=== PATIENT | female | born 2000 | race Caucasian/White ===

== ENCOUNTER 2023-08-24 20:28 | Outpatient (REF) | payer OTHER, SELFPAY ==
[2023-08-30 11:20] LABS: Age Gdln ACOG Testing Note (.); IGP, rfx Aptima HPV ASCU Note (.)
== END 2023-08-24 20:29 | disposition home or self-care (01) ==
LOC: LAB 20:28
PROVIDERS: Visit Provider Physician Assistant
DX: Z01.419 Encounter for gynecological examination (general) (routine) without abnormal findings (principal)
CPT/HCPCS: G0145

== ENCOUNTER 2024-08-28 11:13 | Outpatient (RCR) | payer OTHER, SELFPAY ==
[2024-08-28 12:29] LABS: HCG Quantitative 495 mIU/mL
== END 2024-09-10 10:56 | disposition home or self-care (01) ==
LOC: LAB 11:13
PROVIDERS: PCP Family Medicine; Visit Provider Physician Assistant
DX: N92.6 Irregular menstruation, unspecified (principal)
CPT/HCPCS: 84702

== ENCOUNTER 2024-08-28 19:19 | Outpatient (REF) | payer OTHER, SELFPAY ==
--- OUTSIDE RECORDS SUMMARY | 2024-08-28 19:24 | XMS_ITS | CCD ---
Author Organization [facility] Care Team Providers Care Rheumatology Nurse Name Role Phone Community, Outreach Attending Provider NO FAMILY, PHYSICIAN Primary Care Provider Unava ilable Community, Outreach Attending Unavailable Community, Outreach Admitting Unavailable NO FAMILY, PHYSICIAN Primary Care Unavailable PEDRO ., DR BALL Consulting Unavailable PEDRO ., DR BALL Admitting Unavailable REQUEST, DR NONE LISTED Primary Care Unavaila ble PEDRO ., DR BALL Attending Unavailable PEDRO ., DR BALL Admitting Unavailable REQUEST, DR NONE LISTED Primary Care Unavaila ble PEDRO ., DR BALL Attending Unavailable PEDRO ., DR BALL Consulting Unavailable ZIEBER, DR ANTHONY Royal Consulting Unavailable SUNSHINE DING Attending Unavailable DO Tuan Lovell Attending Unavailable Moses Smith Attending Unavailable MD Kai Mcrae Admitting Unavaila ble [place] tristan Consulting Unavailable [place] Consulting Unavailable [place] Consulting Unavailable Anthony Flood Consulting Unavailable Anthony Flood Consulting Unavailable Anthony Flood Consulting Unavailable Anthony Flood Consulting Unavailable [place] Consulting Unavailable [place] Consulting Unavailable [facility] Cardio, XXXX Consulting Unavailable Jenna BA Primary Care Physician Irasema Franco Unavailable Unavailable Kai Mcrae Admitting Unavailable BetaarielleorBenjamin Consulting Unavailable Moses Smith Attending Unavailable SuzanorBenjamin Consulting Unavailable Benjamin Flores Consulting Unavailable Anthony Flood Consulting Unavailable MD Anthony Flood Consulting Unavailable Anthony Flood Consulting Unavailable [place] Consulting Unavailable [place] Consulting Unavailable [place] Consulting Unavailable [place] Consulting Unavailable Anthony Flood Consulting Unavailable Anthony Flood Consulting Unavailable [facility] Cardio, XXXX Consulting Unavailable MD Kai Mcrae Admitting Unavaila ble Jenna Ba DO Primary Care Provider JENNA BA Attending Unavailable JENNA BA Referring Unavailable JENNA BA Primary Care Unavailable Jenna Ba MD Primary Care Provider Problems Active Problems Problem Classification Problem Date Documented Date Episodic/Chronic Cardiac dysrhythmias (2 sources) Palpitations; Translations: [Palpitations] Onset: 06-04-2024 06-04-2024 Episodic Diseases of white blood cells (1 source) Leukocytosis; Translations: [Elevated white blood cell count, unspecified] Onset: 03-12-2024 Chronic Immunizations and screening for infectious disease (1 source) Encounter for screening for human papillomavirus (HPV); Translations: [ENC SCREENING HUMAN PAPILLOMAVIRUS] Onset: 05-30-2022 Episodic Menstrual disorders (3 sources) Irregular menstruation, unspecified; Translations: [Missed period] Onset: 05-13-2022 08-28-2024 Chronic Nonspecific chest pain (1 source) Chest wall pain; Translations: [Other chest pain] 01-01-2017 Episodic Other circulatory disease (1 source) Low blood pressure; Translations: [Hypotension, unspecified] Onset: 03-12-2024 Episodic Other circulatory disease (1 source) Postural orthostatic tachycardia syndrome ; Translations: [Postural orthostatic tachycardia syndrome [POTS]] Onset: 03-12-2024 Episodic Other circulatory disease (1 source) Orthostatic hypotension; Translations: [Orthostatic hypotension] Onset: 03-12-2024 Episodic Other endocrine disorders (4 sources) Polycystic ovarian syndrome; Translations: [POLYCYSTIC OVARIAN SYNDROME] Onset: 05-12-2022 Chronic Other nutritional; endocrine; and metabolic disorders (1 source) Body mass index 30+ - obesity 08-12-2020 Chronic Other nutritional; endocrine; and metabolic disorders (1 source) Simple obesity 08-12-2020 Chronic Other nutritional; endocrine; and metabolic disorders (1 source) Obesity; Translations: [Obesity, unspecified] Onset: 08-18-2020 08-18-2020 Chronic Other screening for suspected conditions (not mental disorders or infectious disease) (4 sources) Encounter for screening for malignant neoplasm of cervix; Translations: [ENC SCREENING MALIG NEOPLASM CERV] Onset: 05-26-2022 Episodic Syncope (3 sources) Syncope and collapse; Translations: [Syncope and collapse] Onset: 03-12-2024 Episodic Unclassified (1 source) Patient encounter status 08-12-2020 Past or Other Problems Problem Classification Problem Date Documented Da te Episodic/Chronic Abdominal pain (3 sources) Abdominal pain; Translations: [Unspecified abdominal pain] Onset: 08-18-2020 Resolved: 03-15-2024 Episodic Heart valve disorders (2 sources) Systolic murmur; Translations: [Cardiac murmur, unspecified] Onset: 08-18-2020 04-19-2019 Episodic Other gastrointestinal disorders (2 sources) Burping; Translations: [Eructation] Onset: 08-18-2020 Resolved: 03-15-2024 03-10-2020 Episodic Results Test Name Value Interpretation Reference Range Facility HCG ( test) Ql (U)o n 08-28-2024 Interpretation and review of laboratory results Abnormal [facility] Preg Test, Ur Positive Negative [facility] PREG QUANT HCGon 025 HCG QUANTITATIVE 495 mIU/mL [facility] Comment on above: 5-50 0.2-1 WEEK 50-500 1-2 WEEKS 100-5,000 2-3 WEEKS 500-10,000 3-4 WEEKS 1,000-50,000 4-5 WEEKS 10,000-100,000 5-6 WEEKS 15,000-200,000 6-8 WEEKS 10,000-100,000 2-3 MONTHS [facility] Cortisolon 03-14-2024 Cortisol [Mass/Vol] 11.0 microgram/dL Invalid Interpretation Code 6.2-19.4 [facility] Comment on above: Result Comment: Beny escalona Note: The reference interval and flagging for this test is for an AM collection. If this is a PM collection please use: Cortisol PM: 2.3-11.9 Performed at: [facility] [address] [place], [place] [id number] PhD Gilles López Performed By: #### 2 [id number] #### [facility] [address] [place] [address] BMPon 03-13-2024 Anion gap [Moles/Vol] 8 mmol/L Normal 6-16 [facility] Comment on above: Performed By: #### 2 [id number] #### [facility] [address] [place] [address] Calcium [Mass/Vol] 8.3 mg/dL Low 8.9-11.1 [facility] Comment on above: Performed By: #### 2 [id number] #### [facility] [address] [place] [address] Chloride [Moles/Vol] 109 mmol/L Normal 101-111 [facility] Comment on above: Performed By: #### 2 [id number] #### [facility] [address] [place] [address] CO2 [Moles/Vol] 27 mmol/L Normal 21-31 [facility] Comment on above: Performed By: #### 2 [id number] #### [facility] [address] [place] [address] Creatinine [Mass/Vol] 0.5 mg/dL Normal 0.5-1.3 [facility] Comment on above: Performed By: #### 2 [id number] #### [facility] [address] [place] [address] Glucose [Mass/Vol] 104 mg/dL Normal 55-199 [facility] Comment on above: Performed By: #### 2 [id number] #### [facility] [address] [place] [address] Potassium [Moles/Vol] 4.0 mmol/L Normal 3.5-5.3 [facility] Comment on above: Performed By: #### 2 [id number] #### [facility] [address] [place] [address] Sodium [Moles/Vol] 140 mmol/L Normal 135-145 [facility] Comment on above: Performed By: #### 2 [id number] #### [facility] [address] [place] [address] Urea nitrogen [Mass/Vol] 10 mg/dL Normal 5-21 [facility] Comment on above: Performed By: #### 2 [id number] #### [facility] [address] [place] [address] Urea nitrogen/Creatinine [Mass ratio] 20 No Units Normal 10-20 [facility] Comment on above: Performed By: #### 2 [id number] #### [facility] [address] [place] [address] CBC w/ Auto Diffon 4 Basophils/100 WBC (Bld) 0.8 % Normal 0.0-2.0 [facility] Comment on above: Performed By: #### 2 [id number] #### [facility] [address] [place] [address] Basophils/Leukocytes Auto (Bld) [Pure # fraction] 0.1 E9/L Normal 0.0-0.2 [facility] Comment on above: Performed By: #### 2 [id number] #### [facility] [address] [place] [address] Eosinophils (Bld) [#/Vol] 0.2 E9/L Normal 0.0-0.5 [facility] Comment on above: Performed By: #### 2 [id number] #### [facility] [address] [place] [address] Eosinophils/100 WBC (Bld) 3.6 % Normal 0.0-8.0 [facility] Comment on above: Performed By: #### 2 770723 #### [facility] [address] [place] [address] Erythrocyte distribution width (RBC) [Ratio] 12.6 % Normal 10.9-14.2 [facility] Comment on above: Performed By: #### 2 253882 #### [facility] [address] [place] [address] Hematocrit (Bld) [Volume fraction] 35.7 % Normal 34.0-46.0 [facility] Comment on above: Performed By: #### 2 304271 #### [facility] [address] [place] [address] Hemoglobin (Bld) [Mass/Vol] 12.6 g/dL Normal 12.0-16.0 [facility] Comment on above: Performed By: #### 2 [id number] #### [facility] [address] [place] [address] Lymphocytes (Bld) [#/Vol] 2.1 E9/L Normal 1.0-4.0 [facility] Comment on above: Performed By: #### 2 770334 #### [facility] [address] [place] [address] Lymphocytes/100 WBC (Bld) 30.7 % Normal 14.0-50.0 [facility] Comment on above: Performed By: #### 2 306465 #### [facility] [address] [place] [address] MCH (RBC) [Entitic mass] 32.9 pg Normal 27.0-34.0 [facility] Comment on above: Performed By: #### 2 423876 #### [facility] [address] [place] [address] MCHC (RBC) [Mass/Vol] 35.3 g/dL Normal 31.4-36.0 [facility] Comment on above: Performed By: #### 2 560219 #### [facility] [address] [place] [address] MCV (RBC) [Entitic vol] 93.4 fL Normal 80.0-100.0 [facility] Comment on above: Performed By: #### 2 061696 #### [facility] [address] [place] [address] Monocytes (Bld) [#/Vol] 0.6 E9/L Normal 0.2-1.0 [facility] Comment on above: Performed By: #### 2 923205 #### [facility] [address] [place] [address] Neutrophils (Bld) [#/Vol] 3.9 E9/L Normal 2.0-7.5 [facility] Comment on above: Performed By: #### 2 926109 #### [facility] [address] [place] [address] Neutrophils/100 WBC (Bld) 55.7 % Normal 36.0-75.0 [facility] Comment on above: Performed By: #### 2 132459 #### [facility] [address] [place] [address] Platelet 225.0 E9/L Normal 150.0-500.0 [facility] Comment on above: Performed By: #### 2 481906 #### [facility] [address] [place] [address] Platelet mean volume (Bld) [Entitic vol] 7.8 fL Normal 6.4-10.8 [facility] Comment on above: Performed By: #### 2 377305 #### [facility] [address] [place] [address] RBC (Bld) [#/Vol] 3.8 E12/L Low 4.3-5.9 [facility] Comment on above: Performed By: #### 2 273116 #### [facility] [address] [place] [address] WBC corrected for nucl RBC Auto (Bld) [#/Vol] 7.0 E9/L Normal 4.0-11.0 [facility] Comment on above: Performed By: #### 2 618466 #### [facility] [address] [place] [address] CHEMISTRYOrdered By: SYSTEM SYSTEM on 03-13-2024 Anion gap [Moles/Vol] 8 mmol/L Normal 6 - 16 mEq/L [facility] Calcium [Mass/Vol] 8.3 mg/dL Low 8.9 - 11. 1 mg/dL [facility] Chloride [Moles/Vol] 109 mmol/L Normal 101 - 1 11 mmol/L [facility] CO2 [Moles/Vol] 27 mmol/L Normal 21 - 31 mmol/L [facility] Creatinine [Mass/Vol] 0.5 mg/dL Normal 0.5 - 1.3 mg/dL [facility] eGFR 133 mL/min/1.73 m2 Normal >=59mL/mi n/ 1.73 m2 [facility] Glucose [Mass/Vol] 104 mg/dL Normal 55 - 199 mg/dL [facility] Potassium [Moles/Vol] 4.0 mmol/L Normal 3.5 - 5.3 mmol/L [facility] Sodium [Moles/Vol] 140 mmol/L Normal 135 - 145 mmol/L [facility] TSH Qn 5.22 m[IU]/L Normal 0.34 - 5.60 mcIU/mL [facility] Urea nitrogen [Mass/Vol] 10 mg/dL Normal 5 - 21 mg/dL [facility] Urea nitrogen/Creatinine [Mass ratio] 20 mg/mg Normal 10 - 20 [facility] Discharge Note-Nursingon Discharge Note-Nursing Discharge Note-Nursing JYOTI TORRES :2000 Visit Date:03/12/2024 Inpatient Discharge Instructions Your Care Team Admitting Physician - Thor RIZVI, Kai Lagos Consulting Physician - Remigio RIZVI, Anthony Flores MD, Benjamin [facility] Cardio, XXXX Reason for Your Visit abdomenal pain Your Diagnosis Syncope Postural orthostatic tachycardia syndrome [POTS] Orthostatic syncope Abdominal pain, acute Hypotension Leukocytosis Abdominal pain Tests Performed Cortisol -- Results Pending -- CT Abdomen/Pelvis w/ Contrast Echo Transthoracic Complete -- Results Pending -- US Pelvis Non-OB Complete Please visit your patient portal for your results or contact your primary care physician. Procedure History None. Discharge Vitals Temperature (Oral) 36.6 ???C Heart Rate (Monitored) 61 Blood Pressure 96/61 Height 162.56 cm Weight 79.4 kg BMI 30.05 What to do next Instructions From Your Doctor Event Name Event Result Pending Diagnostic Test Results None Discharge Instructions Please return to ER if symptoms change or worsen. Please follow-up with your PCP as instructed. Please make sure you follow-up with a neurologist as well as a foreign exchange student coordinator. New Follow Up Appointments after Discharge Follow Up with Remigio RIZVI, KYLAH Esteves When: 03/28/2024 01:40 PM EST Comments: Will being Hue Bentley PLUNKET NURSE at this appointment. Where: [facility] [address] [place] [address]- Follow Up with Jenna BA When: 03/15/2024 09:45 AM EST Where: [address] [place] [address] [phone] Business (1) Follow Up with Mark RIZVI, IRIS Alexander When: Within 2 to 4 weeks Comments: Call for followup appointment Where: Test Results CBC BMP WBC: 7 E9/L (03/13/24 06:16:00) Glucose Lvl: 104 mg/dL (03/13/24 06:16:00) RBC: 3.8 E12/L Low (03/13/24 06:16:00) BUN: 10 mg/dL (03/13/24 06:16:00) HGB: 12.6 gm/dL (03/13/24 06:16:00) Creatinine: 0.5 mg/dL (03/13/24 06:16:00) Hct: 35.7 % (03/13/24 06:16:00) BUN/Creat Ratio: 20 (03/13/24 06:16:00) MCV: 93.4 fL (03/13/24 06:16:00) Sodium Lvl: 140 mmol/L (03/13/24 06:16:00) MCH: 32.9 pg (03/13/24 06:16:00) Potassium Lvl: 4 mmol/L (03/13/24 06:16:00) MCHC: 35.3 gm/dL (03/13/24 06:16:00) Chloride: 109 mmol/L (03/13/24 06:16:00) RDW: 12.6 % (03/13/24 06:16:00) CO2: 27 mmol/L (03/13/24 06:16:00) Platelet: 225 E9/L (03/13/24 06:16:00) AGAP: 8 mEq/L (03/13/24 06:16:00) MPV: 7.8 fL (03/13/24 06:16:00) Calcium Lvl: 8.3 mg/dL Low (12/03/24 06:16:00) Allergies No Known Allergies Problems Ongoing - Any problem that you are currently receiving treatment for. Abdominal discomfort, epigastric Belching BMI 34.0-34.9,adult Encounter for herb and vitamin supplement management Obesity due to excess calories Systolic murmur Education Materials Postural Orthostatic Tachycardia Syndrome Postural orthostatic tachycardia syndrome (POTS) is a group of symptoms that occur along with an increase in heart rate when a person stands up after lying down. The symptoms include light-headedness or fainting, and they improve when the person lies back down. POTS may be associated with another medical condition, or it may occur on its own. What are the causes? The cause of this condition is not known, but many conditions and diseases are associated with it. What increases the risk? This condition is more likely to develop in: ??? Women 15???50 years old. ??? Women who are . ??? Women who are in their period (menstruating). ??? People who have certain conditions, such as: ? Infection from a virus. ? Diseases that cause the body's defense system (immune system) to attack healthy organs. These are called autoimmune diseases. ? Losing a lot of red blood cells (anemia). ? Losing too much water in the body (dehydration). ? An overactive thyroid (hyperthyroidism). ??? People who take certain medicines. ??? People who have had a major injury. ??? People who have had surgery. What are the signs or symptoms? The most common symptom of this condition is light-headedness when you stand up from a lying or sitting position. Other symptoms may include: ??? Feeling a rapid increase in the heartbeat (tachycardia) within 10 minutes of standing up. ??? Chest pain. ??? Shortness of breath. ??? Breathing that is deeper and faster than normal (hyperventilation). ??? Fainting. ??? Confusion. ??? Trembling. ??? Weakness. ??? Headache. ??? Anxiety. ??? Nausea. ??? Sweating or flushing. Symptoms may be worse in the morning, and they may be relieved by lying down. How is this diagnosed? This condition is diagnosed based on: ??? Your symptoms. ??? Your medical history. ??? A physical exam. ??? Checking your heart rate when you are lying down and after you (more content not included)... Normal [facility] HEMATOLOGYOrdered By: SYSTEM SYSTEM on 03-13-2024 Basophils/100 WBC (Bld) 0.8 % Normal 0.0 - 2.0 % [facility]e Basophils/Leukocytes Auto (Bld) [Pure # fraction] 0.1 E9/L Normal 0.0 - 0.2 E9/L [facility] Eosinophils (Bld) [#/Vol] 0.2 E9/L Normal 0. 0 - 0.5 E9/L [facility] Eosinophils/100 WBC (Bld) 3.6 % Normal 0.0 - 8.0 % [facility] Erythrocyte distribution width (RBC) [Ratio] 12.6 % Normal 10.9 - 14.2 % [facility] Hematocrit (Bld) [Volume fraction] 35.7 % Normal 34.0 - 46.0 % [facility] Hemoglobin (Bld) [Mass/Vol] 12.6 g/dL Normal 12.0 - 16.0 gm/dL [facility] Lymphocytes (Bld) [#/Vol] 2.1 E9/L Normal 1. 0 - 4.0 E9/L [facility] Lymphocytes/100 WBC (Bld) 30.7 % Normal 14 .0 - 50.0 % [facility] MCH (RBC) [Entitic mass] 32.9 pg Normal 27. 0 - 34.0 pg [facility] MCHC (RBC) [Mass/Vol] 35.3 g/dL Normal 31.4 - 36.0 gm/dL [facility] MCV (RBC) [Entitic vol] 93.4 fL Normal 80.0 - 100.0 fL [facility] Monocytes (Bld) [#/Vol] 0.6 E9/L Normal 0.2 - 1.0 E9/L [facility] Monocytes/100 WBC (Bld) 9.2 % Normal 4.0 - 14.0 % [facility] Neutrophils (Bld) [#/Vol] 3.9 E9/L Normal 2. 0 - 7.5 E9/L [facility] Neutrophils/100 WBC (Bld) 55.7 % Normal 36 .0 - 75.0 % [facility] Platelet 225.0 E9/L Normal 150.0 - 500.0 E9/L [facility] Platelet mean volume (Bld) [Entitic vol] 7.8 fL Normal 6.4 - 10.8 fL [facility] RBC (Bld) [#/Vol] 3.8 E12/L Low 4.3 - 5.9 E12/L [facility] WBC corrected for nucl RBC Auto (Bld) [#/Vol] 7.0 E9/L Normal 4.0 - 11.0 E9/L [facility] Inpatient Clinical Summaryon 03-13-2024 Inpatient Clinical Summary Inpatient Clinical Summary [place] [address] Clinical Summary Person Information: Name: JYOTI TORRES Age: 23 Years : 2000 Sex: Female PCP: Jenna BA DO Marital Status: Race: White Ethnicity: Non- or Language: Hong Konger Visit Id: Visit Reason: Abdominal pain; ABD PAIN /PASSED OUT Speciality: Acuity: Enc Type: Observation Med Service: Medical Arrival: 03/12/2024 05:43:15 Discharge: Dispo Type: Admitted as IP to this Hosp Address: [address] [place] [address] Provider Notes: Diagnosis: 1:Syncope; 2:Postural orthostatic tachycardia syndrome [POTS]; 3:Orthostatic syncope; 4:Abdominal pain, acute; 5:Hypotension; 6:Leukocytosis Problems Active Encounter for herb and vitamin supplement management Obesity due to excess calories BMI 34.0-34.9,adult Belching Abdominal discomfort, epigastric Systolic murmur Smoking Status: Never Smoker Functional Status: Sensory Deficits: History of Falls: Mobility Assistance Prior to Admission: ADLs: Independent Current Level of Assistance for Self-Care/Mobility: Cognitive Status: Oriented x 3 Allergies No Known Allergies Measurements: Height: 162.56 cm Weight: 79.4 kg Blood Pressure: 96 mmHg / 61 mmHg BMI: 30.05 kg/m2 Procedures No Procedures Documented Immunizations No Immunizations Documented This Visit Final Med List: No Known Home Medications Care Team Members: Attending Physician: Moses Smith DO Consulting Physician: Theresa Flores MD, MD, Steven; [facility] Cardio, XXXX Referring Physician: Follow up: With: Address: When: Jenna BA [address] [facility] [place] [address] [phone] [facility] (1) 03/15/2024 9:45 AM With: Address: When: Anthony Flood MD, [facility] [address] [place] [id number] 03/28/2024 1:40 PM Comments: Will being Hue Bentley NP at this appointment. With: Address: When: Mark RIZVI, Benjamin, IRIS Within 2 to 4 weeks Comments: Call for followup appointment Patient Education Information: Postural Orthostatic Tachycardia Syndrome; Orthostatic Hypotension; Near-Syncope, [id number]-ad-Ygtm Normal [facility] Inpatient Patient Summaryon 03-13-2024 Inpatient Patient Summary Inpatient Mikaela ent Summary [address] [address] Patient Discharge Instructions PERSON INFORMATION Name: JYOTI TORRES Date of : 2000 Current Date: 03/13/2024 12:34:22 PHYSICIANS Admitting Physician: Thor RIZVI, Kai Lagos Primary Care Physician: Jenna BA DO PCP Phone Number: [phone] Comment: Discharge Diagnosis: 1:Syncope; 2:Postural orthostatic tachycardia syndrome [POTS]; 3:Orthostatic syncope; 4:Abdominal pain, acute; 5:Hypotension; 6:Leukocytosis Condition at Discharge: Improved JYOTI TORRES has been given the following list of follow-up instructions, prescriptions, and patient education materials: PATIENT FOLLOW-UP INFORMATION Diet: Discharge Activity: Discharge Restrictions: Wound Care Instructions: Remove Your Dressing In Days Call Your Doctor For: IF UNABLE TO CONTACT YOUR PHYSICIAN AND YOU FEEL IT IS AN EMERGENCY, GO TO THE NEAREST EMERGENCY ROOM OR CALL 911 Home Treatment: Devices/Equipment: None Special Services: Additional Instructions: Please return to ER if symptoms change or worsen. Please follow-up with your PCP as instructed. Please make sure you follow-up with a neurologist as well as a foreign exchange student coordinator. Primary Care Physician to provide the following pending test results: None Follow up: With: Address: When: Jenna BA [address] [facility] [place] [address] [phone] Business (1) 03/15/2024 9:45 AM With: Address: When: [facility]VI[facility] [address] [place] [address] 03/28/2024 1:40 PM Comments: Will being Hue Bentley NP at this appointment. With: Address: When: Mark RIZVI, IRIS Alexander Within 2 to 4 weeks Comments: Call for followup appointment In the event that this physician does not participate in your insurance network, please consult with your insurance company to find a nearby participating provider. Comment: BRYCE Baez KAYLA M, have received the attached patient education materials/instruction s and have verbalized understanding: Patient Signature Date Clinican/Nurse Signature Date HERE ARE THE MEDICATION CHANGES THAT OCCURRED DURING YOUR HOSPITAL STAY Comment: MEDICATION LIST PROVIDED FOR YOU IS A LIST OF YOUR CURRENT MEDICATIONS. PLEASE CARRY THIS WITH YOU AT ALL TIMES. No Known Home Medications Pharmacy Information: Comment: PATIENT EDUCATION INFORMATION Instructions: Postural Orthostatic Tachycardia Syndrome Postural orthostatic tachycardia syndrome (POTS) is a group of symptoms that occur along with an increase in heart rate when a person stands up after lying down. The symptoms include light-headedness or fainting, and they improve when the person lies back down. POTS may be associated with another medical condition, or it may occur on its own. What are the causes? The cause of this condition is not known, but many conditions and diseases are associated with it. What increases the risk? This condition is more likely to develop in: ??? Women 15?50 years old. ??? Women who are . ??? Women who are in their period (menstruating). ??? People who have certain conditions, such as: ? Infection from a virus. ? Diseases that cause the body's defense system (immune system) to attack healthy organs. These are called autoimmune diseases. ? Losing a lot of red blood cells (anemia). ? Losing too much water in the body (dehydration). ? An overactive thyroid (hyperthyroidism). ??? People who take certain medicines. ??? People who have had a major injury. ??? People who have had surgery. What are the signs or symptoms? The most common symptom of this condition is light-headedness when you stand up from a lying or sitting position. Other symptoms may include: ??? Feeling a rapid increase in the heartbeat (tachycardia) within 10 minutes of standing up. ??? Chest pain. ??? Shortness of breath. ??? Breathing that is deeper and faster than normal (hyperventilation). ??? Fainting. ??? Confusion. ??? Trembling. ??? Weakness. ??? Headache. ??? Anxiety. ??? Nausea. ??? Sweating or flushing. Symptoms may be worse in the morning, and they may be relieved by lying down. How is this diagnosed? This condition is diagnosed based on: ??? Your symptoms. ??? Your medical history. ??? A physical exam. ??? Checking your heart rate when you are lying down and after you stand up. ??? Checking your blood pressure when you go from lying down to standing up. ??? Blood and urine tests to measure hormones that change with blood pressure. The blood tests will be done when you are lying down and when you are standing up. You may have other tests to check for conditions or diseases that are associated with POTS. (more content not included)... Normal [facility] Interdisciplinary Note - Zenon e Manageron 03-13-2024 Interdisciplinary Note - Studio Operation Engineer Interdisciplinary Note - Studio Operation Engineer CRM to room 327 Patient is awake, alert and oriented. Patient is from home with her spouse. He is her ride at [place]. He is present in room. Patient verified PCP, DME and insurance. Patient came in as observation. Patient had abdomen pain with syncopal episode. Patient is assigned to Dr Smith, see notes. Patient has neurology and cardiology on case. Patient has consutl for advance directives. Patient is not interested at this time. Patient had CT showed inflammation around ovary. It was f/u with US of pelvis and this was negative. Patient declined any DC needs for DME, Paramed and HH care. Patient was provided CRM contact, white board updated. CRM following Dc date TBD Normal [facility] Comment on above: Result Comment: Elec tronically Signed By: Radha Trevino\.br\Date and Time Signed: 03/13/24 09:28 EST TSH With T4fr Reflexon 03-13 TSH Qn 5.22 m[IU]/L Normal 0.34-5.60 [facility] Comment on above: Performed By: #### 1 [id number] #### [facility] [address] [place] [address] eGFRon 03-13-2024 eGFR 133 mL/min/1.73 m2 Normal >=59 [facility] Comment on above: Performed By: #### 1 [id number] #### [facility] [address] [place] [address] BMPon 03-12-2024 Anion gap [Moles/Vol] 9 mmol/L Normal 6-16 [facility] Comment on above: Performed By: #### 2 [id number] #### [facility] [address] [place] [address] Calcium [Mass/Vol] 9.0 mg/dL Normal 8.9-11.1 [facility] Comment on above: Performed By: #### 2 [id number] #### [facility] [address] [place] [address] Chloride [Moles/Vol] 106 mmol/L Normal 101-111 [facility] Comment on above: Performed By: #### 2 [id number] #### [facility] [address] [place] [address] CO2 [Moles/Vol] 27 mmol/L Normal 21-31 [facility] Comment on above: Performed By: #### 2 [id number] #### [facility] [address] [place] [address] Creatinine [Mass/Vol] 0.6 mg/dL Normal 0.5-1.3 [facility] Comment on above: Performed By: #### 2 [id number] #### [facility] [address] [place] [address] Glucose [Mass/Vol] 108 mg/dL Normal 55-199 [facility] Comment on above: Performed By: #### 2 [id number] #### [facility] [address] [place] [address] Potassium [Moles/Vol] 3.9 mmol/L Normal 3.5-5.3 [facility] Comment on above: Performed By: #### 2 [id number] #### [facility] [address] [place] [address] Sodium [Moles/Vol] 138 mmol/L Normal 135-145 [facility] Comment on above: Performed By: #### 2 [id number] #### [facility] [address] [place] [address] Urea nitrogen [Mass/Vol] 11 mg/dL Normal 5-21 [facility] Comment on above: Performed By: #### 2 [id number] #### [facility] [address] [place] [address] Urea nitrogen/Creatinine [Mass ratio] 18 No Units Normal 10-20 [facility] Comment on above: Performed By: #### 2 [id number] #### [facility] [address] [place] [address] CBC w/ Auto Diffon 4 Basophils/100 WBC (Bld) 0.2 % Normal 0.0-2.0 [facility] Comment on above: Performed By: #### 2 [id number] #### [facility] [address] [place] [address] Basophils/Leukocytes Auto (Bld) [Pure # fraction] 0.0 E9/L Normal 0.0-0.2 [facility] Comment on above: Performed By: #### 2 [id number] #### [facility] [address] [place] [address] Eosinophils (Bld) [#/Vol] 0.1 E9/L Normal 0.0-0.5 [facility] Comment on above: Performed By: #### 2 [id number] #### [facility] [address] [place] [address] Eosinophils/100 WBC (Bld) 0.6 % Normal 0.0-8.0 [facility] Comment on above: Performed By: #### 2 [id number] #### [facility] [address] [place] [address] Erythrocyte distribution width (RBC) [Ratio] 12.5 % Normal 10.9-14.2 [facility] Comment on above: Performed By: #### 2 [id number] #### [facility] [address] [place] [address] Hematocrit (Bld) [Volume fraction] 40.5 % Normal 34.0-46.0 [facility] Comment on above: Performed By: #### 2 [id number] #### [facility] [address] [place] [address] Hemoglobin (Bld) [Mass/Vol] 13.7 g/dL Normal 12.0-16.0 [facility] Comment on above: Performed By: #### 2 [id number] #### [facility] [address] [place] [address] Lymphocytes (Bld) [#/Vol] 1.7 E9/L Normal 1.0-4.0 [facility] Comment on above: Performed By: #### 2 [id number] #### [facility] [address] [place] [address] Lymphocytes/100 WBC (Bld) 10.6 % Low 14.0-50.0 [facility] Comment on above: Performed By: #### 2 [id number] #### [facility] [address] [place] [address] MCH (RBC) [Entitic mass] 31.4 pg Normal 27.0-34.0 [facility] Comment on above: Performed By: #### 2 [id number] #### [facility] [address] [place] [address] MCHC (RBC) [Mass/Vol] 33.8 g/dL Normal 31.4-36.0 [facility] Comment on above: Performed By: #### 2 [id number] #### [facility] [address] [place] [address] MCV (RBC) [Entitic vol] 92.9 fL Normal 80.0-100.0 [facility] Comment on above: Performed By: #### 2 [id number] #### [facility] [address] [place] [address] Monocytes (Bld) [#/Vol] 0.9 E9/L Normal 0.2-1.0 [facility] Comment on above: Performed By: #### 2 [id number] #### [facility] [address] [place] [address] Neutrophils (Bld) [#/Vol] 13.5 E9/L High 2.0-7.5 [facility] Comment on above: Performed By: #### 2 [id number] #### [facility] [address] [place] [address] Neutrophils/100 WBC (Bld) 82.9 % High 36.0-75.0 [facility] Comment on above: Performed By: #### 2 [id number] #### [facility] [address] [place] [address] Platelet 245.0 E9/L Normal 150.0-500.0 [facility] Comment on above: Performed By: #### 2 [id number] #### [facility] [address] [place] [address] Platelet mean volume (Bld) [Entitic vol] 7.6 fL Normal 6.4-10.8 [facility] Comment on above: Performed By: #### 2 [id number] #### [facility] [address] [place] [address] RBC (Bld) [#/Vol] 4.4 E12/L Normal 4.3-5.9 [facility] Comment on above: Performed By: #### 2 [id number] #### [facility] [address] [place] [address] WBC corrected for nucl RBC Auto (Bld) [#/Vol] 16.3 E9/L High 4.0-11.0 [facility] Comment on above: Performed By: #### 2 [id number] #### [facility] [address] [place] [address] CHEMISTRYOrdered By: SYSTEM SYSTEM on 03-12-2024 Albumin [Mass/Vol] 4.1 g/dL Normal 3.3 - 5.0 gm/dL [facility] Albumin/Globulin [Mass ratio] 1.5 {ratio} Normal 1.1 - 2.2 [facility] ALP [Catalytic activity/Vol] 38 [iU]/d Normal 21 - 98 Int._Unit/L [facility] ALT No additional P-5'-P [Catalytic activity/Vol] 14 [iU]/d Normal 6 - 46 Int._Unit/L [facility] Anion gap [Moles/Vol] 9 mmol/L Normal 6 - 16 mEq/L [facility] AST [Catalytic activity/Vol] 16 [iU]/d Normal 5 - 43 Int._Unit/L [facility] Bilirubin [Mass/Vol] 0.7 mg/dL Normal 0.0 - 1 .1 mg/dL [facility] Bilirubin.direct [Mass/Vol] 0.1 mg/dL Normal 0.0 - 0.4 mg/dL [facility] Bilirubin.indirect [Mass or moles/Vol] 0.6 mg/dL Normal 0.1 - 0.9 mg/dL [facility] Calcium [Mass/Vol] 9.0 mg/dL Normal 8.9 - 11. 1 mg/dL [facility] Chloride [Moles/Vol] 106 mmol/L Normal 101 - 1 11 mmol/L [facility] CO2 [Moles/Vol] 27 mmol/L Normal 21 - 31 mmol/L [facility] Creatinine [Mass/Vol] 0.6 mg/dL Normal 0.5 - 1.3 mg/dL [facility] eGFR 127 mL/min/1.73 m2 Normal >=59mL/mi n/ 1.73 m2 [facility] Globulin (S) [Mass/Vol] 2.8 g/dL Normal 1.4 - 4.0 gm/dL [facility] Glucose [Mass/Vol] 108 mg/dL Normal 55 - 199 mg/dL [facility] Lipase [Catalytic activity/Vol] 19 U/L Normal 13 - 58 unit/L [facility] Potassium [Moles/Vol] 3.9 mmol/L Normal 3.5 - 5.3 mmol/L [facility] Protein [Mass/Vol] 6.9 g/dL Normal 6.0 - 7.8 gm/dL [facility] Sodium [Moles/Vol] 138 mmol/L Normal 135 - 145 mmol/L [facility] Troponin HS pg/mL Low 10.10 - 27.10 pg/mL [facility] Comment on above: Interpretive Data: T he 95% CI (Confidence Interval) PPV (Positive Predictive Value) for myocardial infarction in females is 38 pg/mL, in males 51 pg/mL. The results should be used in conjunction with clinical conditions of myocardial infarction. (Access High Sensitivity Troponin I Instructions For Use, Robin [place], November 2017) Urea nitrogen [Mass/Vol] 11 mg/dL Normal 5 - 21 mg/dL [facility] Urea nitrogen/Creatinine [Mass ratio] 18 mg/mg Normal 10 - [address] Abdomen/Pelvis w/ Contras ton 03-12-2024 CT Abdomen/Pelvis w/ Contrast Exam Date/Time: 03/12/2024 06:49 EST Reason for Exam: ABDOMINAL PAIN, ACUTE, NONLOCALIZED;Other (please specify) Report IMPRESSION: MILD NONSPECIFIC ILL-DEFINED INFLAMMATION CENTERED AROUND THE RIGHT OVARY. POSSIBILITIES INCLUDE OOPHORITIS AND EARLY TORSION. FURTHER EVALUATION WITH ULTRASOUND IS SUGGESTED. Critical communication: Dr. Lovell was notified at approximately 03/12/2024 6:53 AM on 03/12/2024. EXAM: CT Abdomen/Pelvis w/ Contrast DATE: 03/12/2024 6:36 AM CLINICAL HISTORY: ABDOMINAL PAIN, ACUTE, NONLOCALIZED. COMPARISON: None available. TECHNIQUE: Spiral imaging was obtained of the abdomen and pelvis after the uneventful infusion of approximately 100 mL of Isovue [address] scans at this facility use dose modulation, iterative reconstruction, and/or weight based dosing when appropriate to reduce radiation dose to as low as reasonably achievable. Unless otherwise stated, incidental findings identified in this report do not require routine follow-up imaging. FINDINGS: Liver: No enlargement, significant fatty infiltration, suspicious mass or lesion. Biliary: The gallbladder is unremarkable. No abnormal biliary ductal dilatation. Pancreas: No suspicious mass, organized fluid collection, surrounding inflammation, or abnormal pancreatic ductal dilatation. Spleen: Unremarkable. Adrenals: Unremarkable. Kidneys: No hydronephrosis, significant urinary tract calculi, or suspicious mass. GI tract: No abnormal dilation, wall thickening, or suspicious mass. Normal appendix. Lymph nodes: No pathologically enlarged lymph nodes. Vasculature: No aneurysm or dissection. Mesentery/peritoneum/ retroperitoneum: No ascites, organized fluid collection, inflammatory changes, or suspicious mass. Pelvis: Mild ill-defined inflammation is present around the right ovary. Both ovaries appear otherwise within normal limits on CT, containing several small follicles bilaterally. The urinary bladder and uterus are unremarkable. Musculoskeletal: No acute osseous findings identified. Lower thorax: Noncontributory. Report Ordering Provider: Tuan Lovell FINAL REPORT Dictated: 03/12/2024 6:59 am Aren Treviño MD Signed (Electronic Signature): 03/12/2024 6:59 am Signed by: Aren Treviño MD Transcribed by: JEREMIAH Technologist: LOAN Technical Comments GFR (mL/min/1/73m2) na Contrast: Isovue 300 Contrast amount in ml's: 100 Rectal Contrast Given? No Normal [facility] ED Clinical Summaryon 2023 ED Clinical Summary ED Clinical Summary [address] [address] ED Clinical Summary Person Information Name: JYOTI TORRES [facility] Age: 23 Years : 2000 Sex: Female Language: Hong Konger PCP: Jenna BA DO Marital Status: Visit Id: Visit Reason: Abdominal pain; ABD PAIN /PASSED OUT Speciality: Acuity: 3 Enc Type: Observation Med Service: Medical Arrival: 03/12/2024 05:43:15 Discharge: LOS: 000 07:16 Checkin: 03/12/2024 05:43:15 Checkout: 03/12/2024 12:59:23 Dispo Type: Admitted as IP to this [facility] EVENTS: Event Name Event Status Request Date/Time Start Date/Time Complete Date/Time Arrive Complete 03/12/2024 05:43:15 03/12/2024 05:43:15 03/12/2024 05:43:15 Document Home Meds Request 03/12/2024 05:43:15 Triage Complete 03/12/2024 05:43:15 03/12/2024 05:49:42 03/12/2024 05:49:42 Dr Exam Complete 03/12/2024 05:48:01 03/12/2024 05:48:01 03/12/2024 05:48:01 Registration Complete 03/12/2024 05:48:01 03/12/2024 05:49:56 03/12/2024 05:59:09 Bed Assign Complete 03/12/2024 05:49:56 03/12/2024 05:49:56 03/12/2024 05:49:56 RN Exam Complete 03/12/2024 05:49:56 03/12/2024 06:26:42 03/12/2024 06:26:42 CT Complete 03/12/2024 05:58:02 03/12/2024 06:36:55 03/12/2024 06:49:09 Meds Admin Complete 03/12/2024 05:58:02 03/12/2024 06:08:22 Pending Labs Complete 03/12/2024 05:58:02 03/12/2024 06:12:18 03/12/2024 06:45:04 Lab Complete 03/12/2024 05:58:02 03/12/2024 06:45:04 Urine Collect Complete 03/12/2024 05:58:02 03/12/2024 06:24:28 EKG Complete 03/12/2024 05:58:02 03/12/2024 06:05:49 Reg Complete Request 03/12/2024 05:59:09 Reg Bed Request Complete 03/12/2024 05:59:09 03/12/2024 05:59:09 03/12/2024 05:59:09 Pending Labs Complete 03/12/2024 06:12:13 03/12/2024 06:12:13 03/12/2024 06:38:32 Lab Complete 03/12/2024 06:12:13 03/12/2024 06:12:13 03/12/2024 06:38:32 Dr Exam Complete 03/12/2024 06:53:18 03/12/2024 06:53:18 03/12/2024 06:53:18 Registration Start 03/12/2024 06:53:18 03/12/2024 10:28:11 US Complete 03/12/2024 06:57:38 03/12/2024 07:44:31 03/12/2024 08:08:16 Pending Labs Complete 03/12/2024 07:34:04 03/12/2024 07:34:04 03/12/2024 07:34:05 Meds Admin Complete 03/12/2024 09:30:46 03/12/2024 09:37:32 Meds Admin Request 03/12/2024 10:10:31 Echo Request 03/12/2024 10:27:02 Consult Request 03/12/2024 10:27:21 Hospitalist Consult Request 03/12/2024 10:27:21 Observation Request 03/12/2024 10:28:11 Patient Care Request 03/12/2024 10:28:11 Patient Care Request 03/12/2024 10:28:12 Patient Care Request 03/12/2024 10:28:12 Patient Care Request 03/12/2024 10:28:14 Patient Care Request 03/12/2024 10:28:14 Patient Care Request 03/12/2024 10:33:26 Pending Labs Request 03/12/2024 10:33:26 Lab Request 03/12/2024 10:33:26 Meds Admin Request 03/12/2024 10:33:26 Consult Request 03/12/2024 10:35:53 Consult Request 03/12/2024 10:36:10 Pending Labs Request 03/12/2024 12:07:26 Lab Request 03/12/2024 12:07:26 ADDRESS: [address] [place] [id number] [facility] NOTES: Addendum by Earl Foote DO on March 12, 2024 10:27:34 EST MEDICAL INFORMATION: Prescriptions Given: Medications to Continue with No Changes Other Medications ethinyl estradiol-levonorgest rel (Balcoltra) By Mouth every day. PATIENT EDUCATION INFORMATION: Instructions: Follow up: DIAGNOSIS: 1:Syncope; 2:Postural orthostatic tachycardia syndrome [POTS]; 3:Orthostatic syncope; 4:Abdominal pain, acute; 5:Hypotension; 6:Leukocytosis Normal [facility] ED Note-Physicianon 03-12-20 ED Note-Physician ED Note-Physician Basic Information Time Seen: Tuan Lovell DO 03/12/2024 05:48 Chief Complaint abd pain starting this am. pain to abd is around umbilicus. denies nausea or vomiting. states got lightheaded this am History of Present Illness Patient is a 23-year-old female with no past medical history presenting to the ED for evaluation of abdominal pain. Patient states she had abdominal pain starting this morning around 2 AM states she felt warm at that time went back to bed and woke up around 4 AM with worsening pain. Patient states she went to the bathroom became lightheaded and had syncopal episode did not hit her head did not lose consciousness. Patient states the pain has progressively worsened predominantly in the umbilicus however in the lower abdomen. Denies previous abdominal surgeries denies any other complaints. Review of Systems A 10 point review of systems is negative except as noted above. Medical and Surgical History: Reviewed and noted Social history: Lives at home Tobacco: Denies Physical Exam Vitals & Measurements T: 37.1 ???C(Oral) HR: 84(Peripheral) RR: 16 BP: 99/63 SpO2: 98% HT: 162 cm WT: 80 kg BMI: 30.48 General: Well developed, non toxic appearing, no acute distress HEENT: Head atraumatic, Mucosa moist, hearing grossly normal Neck: No JVD, tracheal deviation Cardiac: Regular rate, rhythm, no murmurs, or gallops, 2+ radial pulses Respiratory: Lungs clear to auscultation B/L, normal respiratory effort Abdomen: Soft diffuse abdominal tenderness predominantly in the left lower abdomen by laterally, positive McBurney sign no rebound or guarding, no peritoneal signs Extremities: No edema noted in the LE B/L, no tenderness to palpation Neurologic: Alert and oriented, speech clear Skin: No rashes or lesions Psych: Appropriate mood and behavior Medical Decision Making MEDICAL DECISION MAKING Number and Complexity of Problems Differential Diagnosis: [] [facility] Data External documents reviewed: [] My EKG interpretation: [] My CT interpretation: [] My X-ray interpretation: [] My Ultrasound interpretation: [] Decision rules/scores evaluated: [] Discussed with: [] Treatment and Disposition ED Course: Patient is a 23-year-old female presenting to the ED for evaluation of abdominal pain, syncope. Patient nontoxic in appearance on arrival, no acute distress. Does have significant abdominal pain on examination. Due to her complaints laboratory evaluation is obtained, CT ab pelvis is ordered. Patient offered medication for pain which she declined. She is given IV fluid bolus. Laboratory evaluation reveals a leukocytosis of 16.3 otherwise is unremarkable, urinalysis not signs of infection. Patient signed out to Dr. Foote pending CT imaging results. Shared decision making: [] Code status: [] Assessment/Plan Abdominal pain, acute (R10.9: Unspecified abdominal pain) Syncope (R55: Syncope and collapse) Orders: Sodium Chloride 0.9% intravenous solution, 500 mL, Soln-IV, IV, Once, Stop date 03/12/24 5:57:00 EST, STAT, Start date 03/12/24 5:57:00 EST, 500 mL/hr, Infuse over 1, hour(s) Basic Metabolic Panel CBC w/ Auto Diff CT Abdomen/Pelvis w/ Contrast ECG 12 Lead Adult eGFR Hepatic Function Panel Lipase Level Troponin 0 Hr. U Beta Hcg Qual UA with Cult Rflx Disposition Plan Discharge Prescription List Prescriptions No active prescription medications Follow-up No qualifying data available Problem List/Past Medical History Ongoing Abdominal discomfort, epigastric Belching BMI 34.0-34.9,adult Encounter for herb and vitamin supplement management Obesity due to excess calories Systolic murmur Historical No qualifying data Procedure/Surgical History None. Medications Inpatient NS 500 ml Bolus, 500 mL, IV, Once Home Balcoltra, Oral, Daily Allergies No Known Allergies Social History Tobacco Never (less than 100 in lifetime) Tobacco Use:. Never Smokeless Tobacco Use:., 08/11/2020 Never (less than 100 in lifetime) Tobacco Use:., 04/19/2019 Family History Family history is negative Lab Results WBC: 16.3 E9/L High (03/12/24 06:09:00) RBC: 4.4 E12/L (03/12/24 06:09:00) HGB: 13.7 gm/dL (03/12/24 06:09:00) Hct: 40.5 % (03/12/24 06:09:00) MCV: 92.9 fL (03/12/24 06:09:00) MCH: 31.4 pg (03/12/24 06:09:00) MCHC: 33.8 gm/dL (03/12/24 06:09:00) RDW: 12.5 % (03/12/24 06:09:00) Platelet: 245 E9/L (03/12/24 06:09:00) MPV: 7.6 fL (03/12/24 06:09:00) Neutro Auto: 82.9 % High (03/12/24 06:09:00) Lymph Auto: 10.6 % Low (03/12/24 06:09:00) Kingfisher Auto: 5.7 % (03/12/24 06:09:00) Eos Auto: 0.6 % (03/12/24 06:09:00) Basophil Auto: 0.2 % (03/12/24 06:09:00) Neutro Absolute: 13.5 E9/L High (03/12/24 06:09:00) Lymph Absolute: 1.7 E9/L (03/12/24 06:09:00) Kingfisher Absolute: 0.9 E9/L (03/12/24 06:09:00) Eos Absolute: 0.1 E9/L (03/12/24 06:09:00) Basophil Absolute: 0 E9/L (03/12/24 06:09:00) Gl (more content not included)... Normal [facility] Comment on above: Result Comment: Elec tronically Signed By: Earl Foote DO\.br\Date and Time Signed: 03/12/24 10:29 EST ED Note-Physician ED Note-Physician Basic Information Time Seen: Tuan Lovell DO 03/12/2024 05:48 Chief Complaint abd pain starting this am. pain to abd is around umbilicus. denies nausea or vomiting. states got lightheaded this am History of Present Illness Patient is a 23-year-old female with no past medical history presenting to the ED for evaluation of abdominal pain. Patient states she had abdominal pain starting this morning around 2 AM states she felt warm at that time went back to bed and woke up around 4 AM with worsening pain. Patient states she went to the bathroom became lightheaded and had syncopal episode did not hit her head did not lose consciousness. Patient states the pain has progressively worsened predominantly in the umbilicus however in the lower abdomen. Denies previous abdominal surgeries denies any other complaints. Review of Systems A 10 point review of systems is negative except as noted above. Medical and Surgical History: Reviewed and noted Social history: Lives at home Tobacco: Denies Physical Exam Vitals & Measurements T: 37.1 ???C(Oral) HR: 84(Peripheral) RR: 16 BP: 99/63 SpO2: 98% HT: 162 cm WT: 80 kg BMI: 30.48 General: Well developed, non toxic appearing, no acute distress HEENT: Head atraumatic, Mucosa moist, hearing grossly normal Neck: No JVD, tracheal deviation Cardiac: Regular rate, rhythm, no murmurs, or gallops, 2+ radial pulses Respiratory: Lungs clear to auscultation B/L, normal respiratory effort Abdomen: Soft diffuse abdominal tenderness predominantly in the left lower abdomen by laterally, positive McBurney sign no rebound or guarding, no peritoneal signs Extremities: No edema noted in the LE B/L, no tenderness to palpation Neurologic: Alert and oriented, speech clear Skin: No rashes or lesions Psych: Appropriate mood and behavior Medical Decision Making MEDICAL DECISION MAKING Number and Complexity of Problems Differential Diagnosis: [] [facility] Data External documents reviewed: [] My EKG interpretation: [] My CT interpretation: [] My X-ray interpretation: [] My Ultrasound interpretation: [] Decision rules/scores evaluated: [] Discussed with: [] Treatment and Disposition ED Course: Patient is a 23-year-old female presenting to the ED for evaluation of abdominal pain, syncope. Patient nontoxic in appearance on arrival, no acute distress. Does have significant abdominal pain on examination. Due to her complaints laboratory evaluation is obtained, CT ab pelvis is ordered. Patient offered medication for pain which she declined. She is given IV fluid bolus. Laboratory evaluation reveals a leukocytosis of 16.3 otherwise is unremarkable, urinalysis not signs of infection. Patient signed out to Dr. Foote pending CT imaging results. Shared decision making: [] Code status: [] Assessment/Plan Abdominal pain, acute (R10.9: Unspecified abdominal pain) Syncope (R55: Syncope and collapse) Orders: Sodium Chloride 0.9% intravenous solution, 500 mL, Soln-IV, IV, Once, Stop date 03/12/24 5:57:00 EST, STAT, Start date 03/12/24 5:57:00 EST, 500 mL/hr, Infuse over 1, hour(s) Basic Metabolic Panel CBC w/ Auto Diff CT Abdomen/Pelvis w/ Contrast ECG 12 Lead Adult eGFR Hepatic Function Panel Lipase Level Troponin 0 Hr. U Beta Hcg Qual UA with Cult Rflx Disposition Plan Discharge Prescription List Prescriptions No active prescription medications Follow-up No qualifying data available Problem List/Past Medical History Ongoing Abdominal discomfort, epigastric Belching BMI 34.0-34.9,adult Encounter for herb and vitamin supplement management Obesity due to excess calories Systolic murmur Historical No qualifying data Procedure/Surgical History None. Medications Inpatient NS 500 ml Bolus, 500 mL, IV, Once Home Balcoltra, Oral, Daily Allergies No Known Allergies Social History Tobacco Never (less than 100 in lifetime) Tobacco Use:. Never Smokeless Tobacco Use:., 08/11/2020 Never (less than 100 in lifetime) Tobacco Use:., 04/19/2019 Family History Family history is negative Lab Results WBC: 16.3 E9/L High (03/12/24 06:09:00) RBC: 4.4 E12/L (03/12/24 06:09:00) HGB: 13.7 gm/dL (03/12/24 06:09:00) Hct: 40.5 % (03/12/24 06:09:00) MCV: 92.9 fL (03/12/24 06:09:00) MCH: 31.4 pg (03/12/24 06:09:00) MCHC: 33.8 gm/dL (03/12/24 06:09:00) RDW: 12.5 % (03/12/24 06:09:00) Platelet: 245 E9/L (03/12/24 06:09:00) MPV: 7.6 fL (03/12/24 06:09:00) Neutro Auto: 82.9 % High (03/12/24 06:09:00) Lymph Auto: 10.6 % Low (03/12/24 06:09:00) Kingfisher Auto: 5.7 % (03/12/24 06:09:00) Eos Auto: 0.6 % (03/12/24 06:09:00) Basophil Auto: 0.2 % (03/12/24 06:09:00) Neutro Absolute: 13.5 E9/L High (03/12/24 06:09:00) Lymph Absolute: 1.7 E9/L (03/12/24 06:09:00) Kingfisher Absolute: 0.9 E9/L (03/12/24 06:09:00) Eos Absolute: 0.1 E9/L (03/12/24 06:09:00) Basophil Absolute: 0 E9/L (03/12/24 06:09:00) Gl (more content not included)... Normal [facility] Comment on above: Result Comment: Elec tronically Signed By: Tuan Lovell DO\.br\Date and Time Signed: 03/12/24 06:46 EST ED Patient Education Noteon 03-12-2024 ED Patient Education Note ED Patient Edu cation Note Normal [facility] ED Patient Summaryon 024 ED Patient Summary ED Patient Summary [place] [id number] Patient Discharge Instructions Person Information Name: JYOTI TORRES Age: 23 Years Arrival Date: 03/12/2024 05:43:15 Discharge Diagnosis: 1:Syncope; 2:Postural orthostatic tachycardia syndrome [POTS]; 3:Orthostatic syncope; 4:Abdominal pain, acute; 5:Hypotension; 6:Leukocytosis Primary Care Physician: Jenna BA DO Provider Information Primary Provider: Tuan Lovell DO Advanced Batch Dumper:None The exam and treatment you received in the Emergency Department were for an urgent problem and are not intended as complete care. It is important that you follow up with a doctor, nurse practitioner, or physician???s assistant foreman for ongoing care. If your symptoms become worse or you do not improve as expected and you are unable to reach your usual health care provider, you should return to the Emergency Department. We are available 24 hours a day. JYOTI TORRES has been given the following list of patient education materials, prescriptions and follow-up instructions: Follow-up Instructions: In the event that this physician does not participate in your insurance network, please consult with your insurance company to find a nearby participating provider. Patient Education Materials: A MESSAGE TO ALL PATIENTS REGARDING OPIOIDS PRESCRIPTION OPIOIDS: WHAT YOU NEED TO KNOW Prescription opioids can be used to help relieve jtltwgij-pw-yoxvxm pain and are often prescribed following a surgery or injury, or for certain health conditions. These medications can be an important part of the treatment but also come with serious risks. It is important to work with your healthcare provider to make sure you are getting the safest, most effective care. WHAT ARE THE RISKS AND SIDE EFFECTS OF OPIOID USE? Prescription opioids carry serious risks of addiction and overdose, especially with prolonged use. An opioid overdose, often marked by slowed breathing, can cause sudden . The use of prescription opioids can have a number of side effects as well, even when taken as directed: ??? Tolerance???meaning you might need to take more of the medication for the same pain relief ??? Physical dependence???meaning you have symptoms of withdrawal when a medication is stopped ??? Increased sensitivity to pain ??? Constipation ??? Nausea, vomiting, and dry mouth ??? Sleepiness and dizziness ??? Confusion ??? Depression ??? Low levels of testosterone that can result in lower sex drive, energy, and strength ??? Itching and sweating RISKS ARE GREATER WITH: ??? History of drug misuse, substance use disorder, or overdose ??? Mental health conditions (such as depression or anxiety) ??? Sleep apnea ??? Older age (65 years and older) ??? Avoid alcohol while taking prescription opioids. Also, unless specifically advised by your health care provider, medications to avoid include: ??? Benzodiazepines (such as Xanax or Valium) ??? Muscle relaxants (such as Soma or Flexeril) ??? Hypnotics (such as Ambien or Lunesta) ??? Other prescription opioids KNOW YOUR OPTIONS Talk to your health care provider about ways to manage your pain that don???t involve prescription opioids. Some of these options may actually work better and have fewer risks and side effects. Options may include: ??? Pain relievers such as acetaminophen, ibuprofen, and naproxen ??? Some medication that are also used for depression or seizures ??? Physical therapy and exercise ??? Cognitive behavioral therapy, a psychological, goal-directed approach, in which patients learn how to modify physical, behavioral, and emotional triggers of pain and stress. IF YOU ARE PRESCRIBED OPIOIDS FOR PAIN: ??? Never take opioids in greater amounts or more often than prescribed. ??? Follow up with your primary health care provider. o Work together to create a plan on how to manage your pain. o Talk about ways to help manage your pain that don???t involve prescription opioids. o Talk about any and all concerns and side effects. ??? Help prevent misuse and abuse o Never sell or share prescription opioids. o Never use another person???s prescription opioids. ??? Store prescription opioids in a secure place and out of reach of others (this may include visitors, children, friends, and family). ??? Safely dispose of unused prescription opioids: Find your community drug take-back program or your pharmacy mail-back program, or flush them down the toilet, following guidance from the Food and Drug Administration (www.fda.gov/Drugs/Re sourcesForYou). ??? Visit www.cdc.gov/drugoverd ose to learn about the risks of opioids abuse and overdose. ??? If you believe you may be struggling with addiction, tell your health care assistant and ask for guidance or call [facility] National He (more content not included)... Normal [facility] Extra Blueon 03-12-2024 Tube Collected Plasma Yes Invalid Interpretation Code [facility] Comment on above: Performed By: #### 1 [id number] #### [facility] [address] [place] [address] HEMATOLOGYOrdered By: SYSTEM SYSTEM on 03-12-2024 Basophils/100 WBC (Bld) 0.2 % Normal 0.0 - 2.0 % Remisol Heme Basophils/Leukocytes Auto (Bld) [Pure # fraction] 0.0 E9/L Normal 0.0 - 0.2 E9/L Remisol Heme Eosinophils (Bld) [#/Vol] 0.1 E9/L Normal 0. 0 - 0.5 E9/L Remisol Heme Eosinophils/100 WBC (Bld) 0.6 % Normal 0.0 - 8.0 % Remisol Heme Erythrocyte distribution width (RBC) [Ratio] 12.5 % Normal 10.9 - 14.2 % Remisol Heme Hematocrit (Bld) [Volume fraction] 40.5 % Normal 34.0 - 46.0 % Remisol Heme Hemoglobin (Bld) [Mass/Vol] 13.7 g/dL Normal 12.0 - 16.0 gm/dL Remisol Heme Lymphocytes (Bld) [#/Vol] 1.7 E9/L Normal 1. 0 - 4.0 E9/L Remisol Heme Lymphocytes/100 WBC (Bld) 10.6 % Low 14 .0 - 50.0 % Remisol Heme MCH (RBC) [Entitic mass] 31.4 pg Normal 27. 0 - 34.0 pg Remisol Heme MCHC (RBC) [Mass/Vol] 33.8 g/dL Normal 31.4 - 36.0 gm/dL Remisol Heme MCV (RBC) [Entitic vol] 92.9 fL Normal 80.0 - 100.0 fL Remisol Heme Monocytes (Bld) [#/Vol] 0.9 E9/L Normal 0.2 - 1.0 E9/L Remisol Heme Monocytes/100 WBC (Bld) 5.7 % Normal 4.0 - 14.0 % Remisol Heme Neutrophils (Bld) [#/Vol] 13.5 E9/L High 2. 0 - 7.5 E9/L Remisol Heme Neutrophils/100 WBC (Bld) 82.9 % High 36 .0 - 75.0 % Remisol Heme Platelet 245.0 E9/L Normal 150.0 - 500.0 E9/L Remisol Heme Platelet mean volume (Bld) [Entitic vol] 7.6 fL Normal 6.4 - 10.8 fL Remisol Heme RBC (Bld) [#/Vol] 4.4 E12/L Normal 4.3 - 5.9 E12/L Remisol Heme WBC corrected for nucl RBC Auto (Bld) [#/Vol] 16.3 E9/L High 4.0 - 11.0 E9/L Remisol Heme Hep Func Panelon 03-12-2024 Albumin [Mass/Vol] 4.1 g/dL Normal 3.3-5.0 [facility] Comment on above: Performed By: #### 2 [id number] #### [facility] [address] [place] [address] Albumin/Globulin (S) [Mass conc ratio] 1.5 Normal 1.1-2.2 [facility] Comment on above: Performed By: #### 2 [id number] #### [facility] [address] [place] [address] ALP [Catalytic activity/Vol] 38 Int._Unit/L Normal 21-98 [facility] Comment on above: Performed By: #### 2 [id number] #### [facility] [address] [place] [address] ALT No additional P-5'-P [Catalytic activity/Vol] 14 Int._Unit/L Normal 6-46 [facility] Comment on above: Performed By: #### 2 [id number] #### [facility] [address] [place] [address] AST [Catalytic activity/Vol] 16 Int._Unit/L Normal 5-43 [facility] Comment on above: Performed By: #### 2 [id number] #### [facility] [address] [place] [address] Bilirubin [Mass/Vol] 0.7 mg/dL Normal 0.0-1.1 [facility] Comment on above: Performed By: #### 2 [id number] #### [facility] [address] [place] [address] Bilirubin.direct [Mass/Vol] 0.1 mg/dL Normal 0.0-0.4 [facility] Comment on above: Performed By: #### 2 [id number] #### [facility] [address] [place] [address] Bilirubin.indirect [Mass or moles/Vol] 0.6 mg/dL Normal 0.1-0.9 [facility] Comment on above: Performed By: #### 2 [id number] #### [facility] [address] [place] [address] Globulin (S) [Mass/Vol] 2.8 g/dL Normal 1.4-4.0 [facility] Comment on above: Performed By: #### 2 [id number] #### [facility] [address] [place] [address] Protein [Mass/Vol] 6.9 g/dL Normal 6.0-7.8 [facility] Comment on above: Performed By: #### 2 [id number] #### [facility] [address] [place] [address] Interdisciplinary Note - Zenon e Manageron 03-12-2024 Interdisciplinary Note - Studio Operation Engineer Interdisciplinary Note - Studio Operation Engineer CRM to room 327 Patient is a new admission Nursing is doing her admit at this time. CRM will see patient on 03/13 Normal [facility] Comment on above: Result Comment: Elec tronically Signed By: Radha Trevino\.br\Date and Time Signed: 03/12/24 13:56 EST Lipase Levelon 03-12-2024 Lipase [Catalytic activity/Vol] 19 U/L Normal 13-58 [facility] Comment on above: Performed By: #### 2 [id number] #### [facility] [address] [place] [address] SEROLOGYOrdered By: Leyla Mercer on 03-12-2024 HCG.beta subunit (U) [Moles/Vol] Negative Normal [facility] Man Sero Troponin 0 Hr.on 03-12-2024 Troponin HS <2.30 Low 10.10-27.10 [facility] Comment on above: Result Comment: The 95% CI (Confidence Interval) PPV (Positive Predictive Value) for myocardial infarction in females is 38 pg/mL, in males 51 pg/mL. The results should be used in conjunction with clinical conditions of myocardial infarction. (Access High Sensitivity Troponin I Instructions For Use, Robin Ibrahima, November 2017) Performed By: #### 1 [id number] #### [facility] [address] [place] [address] U BetaHcg Qualon 03-12-2024 HCG.beta subunit (U) [Moles/Vol] Negative Normal [facility] Comment on above: Performed By: #### 2 [id number] #### [facility] [address] [place] [address] UA with Cult Rflxon 03-12-20 24 Bacteria Auto Ql (U) Trace Normal Trace Fish [facility] Comment on above: Performed By: #### 4 [id number] #### [facility] [address] [place] [address] Bilirubin Ql (U) Negative Normal Negative [facility] Comment on above: Performed By: #### 4 [id number] #### [facility] [address] [place] [address] Clarity (U) Clear Normal Clear [facility] Comment on above: Performed By: #### 4 [id number] #### [facility] [address] [place] [address] Color (U) Yellow Normal Yellow [facility] Comment on above: Result Comment: Micr oscopic readings are only performed on those samples that meet specific criteria set forth by [facility]. Performed By: #### 4 [id number] #### [facility] [address] [place] [address] Epithelial cells.squamous Auto (Urine sed) [#/Area] 3-4 Invalid Interpretation Code [facility] Comment on above: Performed By: #### 4 [id number] #### [facility] [address] [place] [address] Glucose Ql (U) Negative Normal Negative [facility] Comment on above: Performed By: #### 4 [id number] #### [facility] [address] [place] [address] Hemoglobin Auto test strip (U) [Mass/Vol] Negative Normal Negative [facility] Comment on above: Performed By: #### 4 [id number] #### [facility] [address] [place] [address] Ketones Auto test strip Ql (U) Negative Normal Negative [facility] Comment on above: Performed By: #### 4 [id number] #### [facility] [address] [place] [address] Leukocyte esterase Auto test strip Ql (U) Negative Normal Negative [facility] Comment on above: Performed By: #### 4 [id number] #### [facility] [address] [place] [address] Mucus Auto Ql (U) Trace Normal Negative [facility] Comment on above: Performed By: #### 4 [id number] #### [facility] [address] [place] [address] Nitrite Auto test strip Ql (U) Negative Normal Negative [facility] Comment on above: Performed By: #### 4 [id number] #### [facility] [address] [place] [address] pH (U) 8.5 [pH] Invalid Interpretation Code 5.0-9.0 [facility] Comment on above: Performed By: #### 4 [id number] #### [facility] [address] [place] [address] Protein Ql (U) 1+ mg/dL Abnormal Negative [facility] Comment on above: Performed By: #### 4 [id number] #### [facility] [address] [place] [address] RBC Ql (U) 0-3 Normal 0-3 [facility] Comment on above: Performed By: #### 4 [id number] #### [facility] [address] [place] [address] Specific gravity (U) [Rel density] 1.017 Invalid Interpretation Code 1.005-1.030 [facility] Comment on above: Performed By: #### 4 [id number] #### [facility] [address] [place] [address] Urobilinogen (U) [Mass/Vol] Negative Normal Negative [facility] Comment on above: Performed By: #### 4 [id number] #### [facility] [address] [place] [address] WBC Auto (Urine sed) [#/Area] 0-5 Normal 0-5 [facility] Comment on above: Performed By: #### 4 [id number] #### [facility] [address] [place] [address] Type of Urine collection method Clean Catch Normal [facility] Comment on above: Performed By: #### 4 [id number] #### [facility] [address] [place] [address] URINALYSISOrdered By: SYSTEM SYSTEM on 03-12-2024 Bacteria Auto Ql (U) Trace /HPF Normal Trace/HPF [facility] UA Auto SS Bilirubin Ql (U) Negative Normal Negativemg/ dL [facility] UA Auto SS Clarity (U) Clear (03/12/24 6:09 AM) Normal Clear [facility] UA Auto SS Color (U) Yellow 1 (03/12/24 6:09 AM) Normal Yellow [facility] UA Auto SS Comment on above: Interpretive Data: M icroscopic readings are only performed on those samples that meet specific criteria set forth by [facility]. Epithelial cells.squamous Auto (Urine sed) [#/Area] 3-4 graded/HPF Invalid Interpretation Code [facility] UA Auto SS Glucose Ql (U) Negative Normal Negativemg/ dL [facility] UA Auto SS Hemoglobin Auto test strip (U) [Mass/Vol] Negative Normal Negativemg/ dL [facility] UA Auto SS Ketones Auto test strip Ql (U) Negative Normal Negativemg/ dL [facility] UA Auto SS Leukocyte esterase Auto test strip Ql (U) Negative Normal NegativeLeu /uL [facility] UA Auto SS Mucus Auto Ql (U) Trace graded/LPF Normal Negati vegra ded/LPF [facility] UA Auto SS Nitrite Auto test strip Ql (U) Negative Normal Negativemg/ dL [facility] UA Auto SS pH (U) 8.5 *NA* (03/12/24 6:09 AM) Invalid Interpretation Code 5.0 - 9.0 [facility] UA Auto SS Protein Ql (U) 1+ mg/dL Invalid Interpretation Code Negativemg/ dL [facility] UA Auto SS RBC Ql (U) 0-3 graded/HPF Normal 0-3graded/H PF [facility] UA Auto SS Specific gravity (U) [Rel density] 1.017 *NA* (03/12/24 6:09 AM) Invalid Interpretation Code 1.005 - 1.030 [facility] UA Auto SS Urobilinogen (U) [Mass/Vol] Negative Normal Negativemg/ dL [facility] UA Auto SS WBC Auto (Urine sed) [#/Area] 0-5 graded/HPF Normal 0-5graded/H PF [facility] UA Auto SS URINALYSISOrdered By: Karmen Lovell on 03-12-2024 UA Spec Desc Clean Catch (03/12/24 6:09 AM) Normal [facility] UA Auto SS Work Phone: US Pelvis Non-OB Completeon 03-12-2024 US Pelvis Non-OB Complete Exam Date/Time : 03/12/2024 08:08 EST Reason for Exam: ovarian torsion;Pelvic pain Report IMPRESSION: Unremarkable ultrasound of the female pelvis. Normal vascular flow to both ovaries. The nonspecific inflammation adjacent to the right ovary is better appreciated on the recent CT. HISTORY: Pelvic pain bilaterally, worse on the right. Abnormal CT. TECHNIQUE: Sonography of the pelvis was performed by transabdominal technique. COMPARISON: CT 03/12/2024. RESULT: Uterus: -Orientation: Anteverted -Size: Uterus Length: 7.1 cm x Uterus Width: 3.5 cm x Uterus Height: 3.2 cm. Uterus Volume: 41.0 cm3 -Myometrium: Homogeneous echotexture. -Endometrial echo complex: Endometrium Thickness: 0.4 cm -Cervix: Normal Right ovary: Normal sonographic appearance with physiologic follicles. The inflammation adjacent to the right ovary is better appreciated on the recent CT, please refer to that report. -Size: Right Ovary Length: 3.9 cm x Right Ovary Width: 4.1 cm x Right Ovary Height: 3.0 cm. Right Ovary Volume: 24.5 cm3 -Complex cyst: None. -Solid mass: None. -Arterial and venous flow with normal spectral waveforms present. Left ovary: Normal sonographic appearance with physiologic follicles. -Size: Left Ovary Length: 3.4 cm x Left Ovary Width: 2.7 cm x Left Ovary Height: 2.7 cm. Left Ovary Volume: 13.3 cm3 -Complex cyst: None. -Solid mass: None. -Arterial and venous flow with normal spectral waveforms present. Free fluid: None. Report Ordering Provider: Earl Foote FINAL REPORT Dictated: 03/12/2024 8:37 am Sean Baltazar MD Signed (Electronic Signature): 03/12/2024 8:37 am Signed by: Sean Baltazar MD Transcribed by: JEREMIAH Technologist: CHELY Technical Comments Transabdominal Ultrasound Performed Normal [facility] eGFRon 03-12-2024 eGFR 127 mL/min/1.73 m2 Normal >=59 [facility] Comment on above: Performed By: #### 1 [id number] #### [facility] [address] [place] [address] PAP ACOG PANEL 2: 21 to 29on 06-03-2022 . . Normal [facility] Comment on above: Performed By: #### 4 [id number] #### [facility] [address] [place] [address] Dr. Vernon Merino Age Gdln ACOG Testing - [facility] Comment on above: Performed By: #### 4 [id number] #### [facility] [address] [place] [address] [address] Vernon Merino DIAGNOSIS: Comment [facility] Comment on above: Result Comment: NEGA TIVE FOR INTRAEPITHELIAL LESION OR MALIGNANCY. Performed By: #### 4 [id number] #### [facility] [address] [place] [address] [address] Vernon Merino Methodology: Comment [facility] Comment on above: Result Comment: This liquid based ThinPrep(R) pap test was screened with the use of an image guided system. Performed By: #### 4 [id number] #### [facility] [address] [place] [address] [address] Vernon Merino Note: Comment [facility] Comment on above: Result Comment: The Pap smear is a screening test designed to aid in the detection of premalignant and malignant conditions of the uterine cervix. It is not a diagnostic procedure and should not be used as the sole means of detecting cervical cancer. Both false-positive and false-negative reports do occur. . Performed By: #### 4 [id number] #### [facility] [address] [place] [address] Dr. Vernon Merino Performed by: Comment Normal [facility] Comment on above: Result Comment: Marciano Swann Vacuum Caster (ASCP) Performed By: #### 4 [id number] #### [facility] [address] [place] [address] Dr. Vernon Merino Reflex Criteria: Comment Normal [place] Comment on above: Result Comment: The HPV DNA reflex criteria were not met with this specimen result therefore, no HPV testing was performed. . Performed By: #### 4 [id number] #### [facility] [address] [place] [address] Dr. Vernon Merino Specimen adequacy: Comment Normal [facility] Comment on above: Result Comment: Sati sfactory for evaluation. Endocervical and/or squamous metaplastic cells (endocervical component) are present. Performed By: #### 4 [id number] #### [facility] [address] [place] [address] Dr. Vernon Merino DHEA SERUMon 05-17-2022 Dehydroepiandrosterone (DHEA) 633 ng/dL Normal 31-701 [facility] Comment on above: Result Comment: Age 1 - 5 years 0 - 67 6 - 7 years 0 - 110 8 - 10 years 0 - 185 11 - 12 years 0 - 201 13 - 14 years 0 - 318 15 - 16 years 39 - 481 17 - 19 years 40 - 491 >19 years 31 - 701 Performed By: #### Adriano LIZ. #### [facility] [address] [place] [address] Dr. Vernon Merino DHEA-SULFATEon 05-13-2022 DHEA-Sulfate 377.0 ug/dL Normal 110.0-431.7 [facility] Comment on above: Performed By: #### Adriano CHOWDARY #### [facility] [address] [place] [address] Dr. Vernon Merino FSHon 05-13-2022 FSH 3.7 mIU/mL Normal [facility] Comment on above: Result Comment: Adul t Female: Follicular phase 3.5 - 12.5 Ovulation phase 4.7 - 21.5 Luteal phase 1.7 - 7.7 Postmenopausal 25.8 - 134.8 Performed By: #### L [facility] #### [facility] [address] [place] [address] [address] Vernon Merino LUTEINIZING HORMONE (LH)on 0 05-13-2022 LH 15.3 mIU/mL Normal [facility] Comment on above: Result Comment: Adul t Female: Follicular phase 2.4 - 12.6 Ovulation phase 14.0 - 95.6 Luteal phase 1.0 - 11.4 Postmenopausal 7.7 - 58.5 Performed By: #### L BCLH #### [facility] [address] [place] [address] [address] Vernon Merino PROLACTINon 05-13-2022 Prolactin 12.8 ng/mL Normal 4.8-23.3 [facility] Comment on above: Performed By: #### P ROLAC #### [facility] [address] [place] [address] [address] Vernon Merino CBC AUTO DIFFon 05-12-2022 BASO # 0.1 103/ul Normal 0.0-0.1 [facility] Comment on above: Performed By: #### C BC ####[facility] [address] [place] [address]Dr. Vernon Merino Basophils/100 WBC (Bld) 1.1 % Normal 0.2-2.0 [facility] Comment on above: Performed By: #### C BC ####[facility] [address]tc[address]jr[address] [id number]. Vernon Merino EO # 0.1 103/ul Normal 0.0-0.7 [facility] Comment on above: Performed By: #### C BC ####[facility] [address] [address]Dr. Vernon Merino Eosinophils/100 WBC (Bld) 1.6 % Normal 0.9-7.0 [facility] Comment on above: Performed By: #### C BC ####[facility] [address] [address]Dr. Vernon Merino Erythrocyte distribution width (RBC) [Ratio] 12.1 % Normal 11.0-15.0 [facility] Comment on above: Performed By: #### C BC ####[facility] V[address] [place], [place] [address]Dr. Vernon Merino Hematocrit (Bld) [Volume fraction] 44.5 % Normal 36.0-48.0 [facility] Comment on above: Performed By: #### C BC ####[facility] [address] [place], [place] [address]Dr. Vernon Merino Hemoglobin (Bld) [Mass/Vol] 14.3 g/dL Normal 12.0-16.0 [facility] Comment on above: Performed By: #### C BC ####[facility] She[address]riz[address] [place], [place] [address]Dr. Vernon Merino IG # 0.01 10e3/ul Normal 0.00-0.03 [facility] Comment on above: Performed By: #### C BC ####[facility] Y[address] [place], [place] [address]Dr. Vernon Merino IG % 0.2 % Normal 0.0-0.5 [facility] Comment on above: Performed By: #### C BC ####[facility] [address]lyvs[address] [place], [place] [address]Dr. Vernon Merino LYMPH # 1.8 103/ul Normal 1.2-3.8 [facility] Comment on above: Performed By: #### C BC ####[facility] Yt[address] [place], [place] [address]Dr. Vernon Wilber Lymphocytes/100 WBC (Bld) 29.5 % Normal 20.5-60.0 [facility] Comment on above: Performed By: #### C BC ####[facility] Gwwvxfcjdl[address] [place], [place] [address]Dr. Demetriayo Merino MANUAL DIFF REQ NO Normal [facility] Comment on above: Performed By: #### C BC ####[facility] [address] [address] [address]Dr. Vernon Wilber MCH (RBC) [Entitic mass] 30.6 pg Normal 26.7-34.0 [facility] Comment on above: Performed By: #### C BC ####[facility] [address] [address] [address]Dr. Vernon Merino MCHC (RBC) [Mass/Vol] 32.1 g/dL Normal 29.9-35.2 [facility] Comment on above: Performed By: #### C BC ####[facility] [address] [address]DrHeena Merino MCV (RBC) [Entitic vol] 95.3 fL Normal 81.0-99.0 [facility] Comment on above: Performed By: #### C BC ####[facility] [address] [place], [place] [address]DrHeena Merino MONO # 0.5 103/ul Normal 0.3-0.8 [facility] Comment on above: Performed By: #### C BC ####[facility] [address] [place], [place] [address]DrHeena Merino Monocytes/100 WBC (Bld) 8.7 % Normal 1.7-12.0 [facility] Comment on above: Performed By: #### C BC ####[facility] [address] [place], [place] [address]DrHeena Merino NEUT # 3.6 103/ul Normal 1.4-6.5 [facility] Comment on above: Performed By: #### C BC ####[facility] P[address] [place], [place] [address]DrHeena Merino Neutrophils/100 WBC (Bld) 58.9 % Normal 43.0-75.0 [facility] Comment on above: Performed By: #### C BC ####[facility] [address] [place], [place] [address]DrHeena Merino Platelet mean volume (Bld) [Entitic vol] 9.9 fL Normal 9.5-13.5 [facility] Comment on above: Performed By: #### C BC ####[facility] [address] [place] [address]Dr. Vernon Merino PLT 270 103/ul Normal 150-450 [facility] Comment on above: Performed By: #### C BC ####[facility] [address] [place] [address]Dr. Vernon Merino RBC 4.67 106/ul Normal 4.20-5.40 [facility] Comment on above: Performed By: #### C BC ####[facility] [address] [place] [address]Dr. Vernon Merino WBC 6.1 103/ul Normal 4.0-11.0 [facility] Comment on above: Performed By: #### C BC ####[facility] [address] [place] [address]Dr. Vernon Merino FREE T4on 05-12-2022 Free T4 [Mass/Vol] 1.10 ng/dL Normal 0.76-1.46 [facility] Comment on above: Performed By: #### F T4 #### [facility] [address] [place] [address] Dr. Vernon Merino GLYCOHEMOGLOBIN A1Con 2022 ADA RECOMMENDATION SEE BELOW Normal [facility] Comment on above: Result Comment: ADA RECOMMENDED LIMIT 4.0 - 6.0 ADA THERAPEUTIC TARGET < 7.0 ACTION SUGGESTED > 7.0 Performed By: #### A 1C #### [facility] [address] [address] [address] Vernon Merino Glucose [Mass/Vol] 105 mg/dL Normal [facility] Comment on above: Performed By: #### A 1C #### [facility] [address] [address] [address] Vernon Merino HbA1c (Bld) [Mass fraction] 5.3 % Normal 4.5-6.2 [facility] Comment on above: Performed By: #### A 1C #### [facility] [address] [address] [address] Vernon Merino TSHon 05-12-2022 TSH 1.981 uIU/mL Normal 0.358-3.740 [facility] Comment on above: Performed By: #### T #### [facility] [address] [address] [address] Vernon Merino US PELVIS AND TRANSVAGon US PELVIS AND TRANSVAG EXAMINATION: US PELVIS AND TRANSVAG HISTORY: Irregular periods ; possible polycystic ovarian syndrome COMPARISON: No relevant comparison available. TECHNIQUE: Transabdominal and transvaginal sonographic examination. FINDINGS: UTERUS: Normal size and appearance. Suspect small nabothian cyst. Uterus size: 7.1 x 3.8 x 3.1 cm ENDOMETRIUM: Normal homogeneous appearance. Endometrial thickness: 8 mm RIGHT OVARY: Contains several small peripherally located follicles. Duplex Doppler demonstrates normal waveform and flow; resistive index 0.5. Ovary size: 3.9 x 2.9 x 2.5 cm LEFT OVARY: Contains several small peripherally located follicles. Duplex Doppler demonstrates normal waveform and flow; resistive index 0.6. Ovary size: 3.4 x 2.8 x 2.3 cm CUL-DE-SAC: Trace amount of free fluid, likely physiologic. BLADDER: Unremarkable. OTHER: None. IMPRESSION: 1. Unremarkable uterus. 2. Both ovaries contain several small peripherally located follicles, but less than expected for polycystic ovarian syndrome. Electronically authenticated by: ANTHONY AQUINO Date: 2022-05-12 11:17 Normal [facility] Body fluid albumin measureme nt (mass/volume)Ordered By: [facility] on 03-13-2022 Albumin (Body fld) [Mass/Vol] 4.0 g/dL 3.2-5.5 [facility] CBC Without Differentialon 1 05-14-2021 Erythrocyte distribution width (RBC) [Ratio] 12.9 % Normal 11.9-15.3 [facility] Comment on above: Performed By: #### [facility] LIPID, OUTREACH TSH, CBCNOOUTREACH #### [facility] [address] Hematocrit (Bld) [Volume fraction] 42.3 % Normal 34.0-46.4 [facility] Comment on above: Performed By: #### O UTREACH CMP, OUTREACH LIPID, OUTREACH TSH, CBCNOOUTREACH #### [address] Hemoglobin (Bld) [Mass/Vol] 14.1 g/dL Normal 11.8-15.4 [facility] Comment on above: Performed By: #### O UTREACH CMP, OUTREACH LIPID, OUTREACH TSH, CBCNOOUTREACH #### [address] MCH (RBC) [Entitic mass] 30.6 pg Normal 24.7-34.3 [facility] Comment on above: Performed By: #### O UTREACH CMP, OUTREACH LIPID, OUTREACH TSH, CBCNOOUTREACH #### [address] MCV (RBC) [Entitic vol] 92.0 fL Normal 80-100 [facility] Comment on above: Performed By: #### O UTREACH CMP, OUTREACH LIPID, OUTREACH TSH, CBCNOOUTREACH #### [address] Mean Corpuscular HGB Conc 33.2 g/dL Normal 32.0-35.0 [facility] Comment on above: Performed By: #### O UTREACH CMP, OUTREACH LIPID, OUTREACH TSH, CBCNOOUTREACH #### [address] Platelet mean volume (Bld) [Entitic vol] 8.6 fL Normal 6.3-10.7 [facility] Comment on above: Result Comment: PERF ORMED BY: [place] [address] PATHOLOGIST GAMBLING SUPERVISOR YNE ESCOBAR M.D. Performed By: #### O UTREACH CMP, OUTREACH LIPID, OUTREACH TSH, CBCNOOUTREACH #### [address] Platelets (Bld) [#/Vol] 283 10*3/uL Normal 150-450 [facility] Comment on above: Performed By: #### O UTREACH CMP, OUTREACH LIPID, OUTREACH TSH, CBCNOOUTREACH #### [facility] [address] [place] [address] RBC (Bld) [#/Vol] 4.60 10*6/uL Normal 3.60-5.00 [facility] Comment on above: Performed By: #### O UTREACH CMP, OUTREACH LIPID, OUTREACH TSH, CBCNOOUTREACH #### [facility] [address] [place] [address] WBC (Bld) [#/Vol] 6.6 10*3/uL Normal 3.8-11.6 [facility] Comment on above: Performed By: #### O UTREACH CMP, OUTREACH LIPID, OUTREACH TSH, CBCNOOUTREACH #### [facility] [address] [place] [address] CMP Outreachon 03-13-2022 Albumin [Mass/Vol] 4.0 g/dL Normal 3.2-5.5 [facility] Comment on above: Performed By: #### O UTREACH CMP, OUTREACH LIPID, OUTREACH TSH, CBCNOOUTREACH #### [facility] [address] [place] [address] ALP [Catalytic activity/Vol] 42 U/L Normal 32-92 [facility] Comment on above: Performed By: #### O UTREACH CMP, OUTREACH LIPID, OUTREACH TSH, CBCNOOUTREACH #### [facility] [address] [place] [address] ALT [Catalytic activity/Vol] 21 U/L Normal 10-60 [facility] Comment on above: Performed By: #### O UTREACH CMP, OUTREACH LIPID, OUTREACH TSH, CBCNOOUTREACH #### [facility] [address] [place] [address] Anion gap [Moles/Vol] 9.3 mmol/L Normal 6.0-15.0 [facility] Comment on above: Performed By: #### O UTREACH CMP, OUTREACH LIPID, OUTREACH TSH, CBCNOOUTREACH #### [address] [place] [address] [place] AST [Catalytic activity/Vol] 22 U/L Normal 10-42 [facility] Comment on above: Performed By: #### O UTREACH CMP, OUTREACH LIPID, OUTREACH TSH, CBCNOOUTREACH #### [facility] [address] Bilirubin [Mass/Vol] 0.6 mg/dL Normal 0.3-1.2 [facility] Comment on above: Performed By: #### O UTREACH CMP, OUTREACH LIPID, OUTREACH TSH, CBCNOOUTREACH #### [facility] [address] [place] [address] Calcium [Mass/Vol] 9.2 mg/dL Normal 8.2-10.2 [facility] Comment on above: Performed By: #### O UTREACH CMP, OUTREACH LIPID, OUTREACH TSH, CBCNOOUTREACH #### [facility] [address] [place] [address] [place] Chloride [Moles/Vol] 103 mmol/L Normal 95-114 [facility] Comment on above: Performed By: #### O UTREACH CMP, OUTREACH LIPID, OUTREACH TSH, CBCNOOUTREACH #### [facility] [address] [place] [address] [place] CO2 [Moles/Vol] 27.8 mmol/L Normal 22.0-30.0 [facility] Comment on above: Performed By: #### O UTREACH CMP, OUTREACH LIPID, OUTREACH TSH, CBCNOOUTREACH #### [facility] [address] [place] [address] [place] Creatinine [Mass/Vol] 0.62 mg/dL Normal 0.44-1.03 [facility] Comment on above: Performed By: #### O UTREACH CMP, OUTREACH LIPID, OUTREACH TSH, CBCNOOUTREACH #### [facility] [address] [place] [address] [place] Estimated GFR ( Sara > 60 Normal [facility] Comment on above: Result Comment: GFR estimated reference range: According to KDOQI guidelines, <60 ml/min/1.73m2 is sufficient to diagnose a patient with chronic kidney disease. Performed By: #### O UTREACH CMP, OUTREACH LIPID, OUTREACH TSH, CBCNOOUTREACH #### [facility] [address] [place] [address] [place] Estimated GFR (Non- Am > 60 Normal [facility] Comment on above: Performed By: #### O UTREACH CMP, OUTREACH LIPID, OUTREACH TSH, CBCNOOUTREACH #### [facility] [address] [place] [address] [place] Glucose [Mass/Vol] 91 mg/dL Normal 70-100 [facility] Comment on above: Result Comment: [facility] Glucose Reference Range is dependent on time and content of last meal. Glucose of more than 200 mg/dL in a nonstressed, ambulatory subject supports the diagnosis of Diabetes Mellitus. ADA recommended reference range Performed By: #### O UTREACH CMP, OUTREACH LIPID, OUTREACH TSH, CBCNOOUTREACH #### [facility] [address] [place] [address] [place] Potassium [Moles/Vol] 4.1 mmol/L Normal 3.5-5.1 [facility] Comment on above: Performed By: #### O UTREACH CMP, OUTREACH LIPID, OUTREACH TSH, CBCNOOUTREACH #### [place] [address] [place] Protein [Mass/Vol] 6.8 g/dL Normal 6.1-7.9 [facility] Comment on above: Performed By: #### O UTREACH CMP, OUTREACH LIPID, OUTREACH TSH, CBCNOOUTREACH #### [place] [address] [place] Sodium [Moles/Vol] 136 mmol/L Normal 136-146 [facility] Comment on above: Performed By: #### O UTREACH CMP, OUTREACH LIPID, OUTREACH TSH, CBCNOOUTREACH #### [place] [address] [place] Urea nitrogen [Mass/Vol] 9 mg/dL Normal 9-23 [facility] Comment on above: Performed By: #### O UTREACH CMP, OUTREACH LIPID, OUTREACH TSH, CBCNOOUTREACH #### [facility] [address] Cholesterol [Mass/volume] in Serum or PlasmaOrdered By: [facility] on 03-13-2022 Cholesterol [Mass/Vol] 180 mg/dL 140-200 [facility] Comment on above: Chol less than 200 m g/dl low riskChol 201-239 mg/dl borderline riskChol 240 mg/dl and greater high risk Cholesterol in LDL Calc [Mas s/Vol]Ordered By: [facility] on 03-13-2022 Cholesterol in LDL [Mass/Vol] 113 mg/dL 0-100 [facility] Comment on above: LDL ATP III CLASSIFI CATIONLDL less than 100 mg/dL OptimalLDL 100-129 mg/dL Near or above optimalLDL 130-159 mg/dL Borderline highLDL 160-189 mg/dL HighLDL greater than 189 mg/dL Very high Cholesterol in VLDL Calc [Ma ss/Vol]Ordered By: [facility] on 03-13-2022 Cholesterol in VLDL [Mass/Vol] 11 mg/dL [facility] Creatinine and Glomerular fi ltration rate.predicted panel (S/P/Bld)Ordered By: [facility] on 03-13-2022 Creatinine [Mass/Vol] 0.62 mg/dL 0.44-1.03 [facility] Erythrocyte distribution wid th Auto (RBC) [Ratio]Ordered By: [facility] on 03-13-2022 Erythrocyte distribution width (RBC) [Ratio] 12.9 % 11.9-15.3 [facility] Estimated glomerular filtrat ion rate (GFR) non- AmericanOrdered By: [facility] on 03-13-2022 GFR/1.73 sq M.predicted among non-blacks MDRD (S/P/Bld) [Vol rate/Area] > 60 mL/Min [facility] Hematocrit Auto (Bld) [Volum e fraction]Ordered By: [facility] on 03-13-2022 Hematocrit (Bld) [Volume fraction] 42.3 % 34.0-46.4 [facility] Hemoglobin [Mass/volume] in BloodOrdered By: [facility] on 03-13-2022 Hemoglobin (Bld) [Mass/Vol] 14.1 g/dL 11.8-15.4 [facility] Leukocytes [#/volume] correc pepper for nucleated erythrocytes in Blood by Automated counOrdered By: [facility] on 03-13-2022 WBC corrected for nucl RBC Auto (Bld) [#/Vol] 6.6 10*3/uL 3.8-11.6 [facility] Lipid Profile Outreachon Cholesterol [Mass/Vol] 180 mg/dL Normal 140-200 [facility] Comment on above: Result Comment: Chol less than 200 mg/dl low risk Chol 201-239 mg/dl borderline risk Chol 240 mg/dl and greater high risk Performed By: #### O UTREACH CMP, OUTREACH LIPID, OUTREACH TSH, CBCNOOUTREACH #### [facility] [address] [place] [id number] [place] Cholesterol in HDL [Mass/Vol] 56 mg/dL Normal 35-85 [facility] Comment on above: Result Comment: HDL CHOL ATP-III CLASSIFICATION Cardiovascular Risk HDL > or equal to 60 mg/dL LOW HDL < 40 mg/dL HIGH Performed By: #### O UTREACH CMP, OUTREACH LIPID, OUTREACH TSH, CBCNOOUTREACH #### [facility] [address] [place] [address] [place] Cholesterol.total/Cholest richard in HDL [Mass ratio] 3.2 {ratio} Normal <5.0 [facility] Comment on above: Performed By: #### O UTREACH CMP, OUTREACH LIPID, OUTREACH TSH, CBCNOOUTREACH #### [facility] [address] [place] [address] [place] LDL Cholesterol,Calculated 113 mg/dL High 0-100 [facility] Comment on above: Result Comment: LDL ATP III CLASSIFICATION LDL less than 100 mg/dL Optimal LDL 100-129 mg/dL Near or above optimal LDL 130-159 mg/dL Borderline high LDL 160-189 mg/dL High LDL greater than 189 mg/dL Very high Performed By: #### O UTREACH CMP, OUTREACH LIPID, OUTREACH TSH, CBCNOOUTREACH #### [facility] [address] [place] [address] [place] Triglyceride w/Reflex 56 mg/dL Normal 35-149 [facility] Comment on above: Result Comment: TRIG ATP III CLASSIFICATION TRIG less than 150 mg/dL Normal TRIG 150-199 mg/dL Borderline high TRIG 200-500 mg/dL High TRIG greater than 500 mg/dL Very high Standard traceable to the Center for Disease Conrtrol and Prevention (CDC) test method. Performed By: #### O UTREA CMP, OUTREACH LIPID, OUTREACH TSH, CBCNOOUTREACH #### [facility] [address] VLDL CHOLESTEROL 11 mg/dL Normal [facility] Comment on above: Performed By: #### O UTREA CMP, OUTREACH LIPID, OUTREACH TSH, CBCNOOUTREACH #### [facility] [address] [place] [address] [place] MCH Auto (RBC) [Entitic mass ]Ordered By: [facility] on 03-13-2022 MCH (RBC) [Entitic mass] 30.6 pg 24.7-34.3 [facility] MCHC Auto (RBC) [Mass/Vol]Or dered By: [facility] on 03-13-2022 MCHC (RBC) [Mass/Vol] 33.2 g/dL 32.0-35.0 [facility] MCV Auto (RBC) [Entitic vol] Ordered By: [facility] on 03-13-2022 MCV (RBC) [Entitic vol] 92.0 fL 80-100 [facility] No Panel InformationOrdered By: [facility] on 03-13-2022 Estimated GFR () > 60 mL/Min [facility] Comment on above: GFR estimated refere nce range: According to KDOQI guidelines, <60 ml/min/1.73m2 is sufficient to diagnose a patient with chronic kidney disease. Pharmacy Creatinine Clearance (Chem N/A [facility] Triglycerides Reflex 56 mg/dL 35-149 [facility] Comment on above: TRIG ATP III CLASSIF ICATIONTRIG less than 150 mg/dL NormalTRIG 150-199 mg/dL Borderline highTRIG 200-500 mg/dL High TRIG greater than 500 mg/dL Very highStandard traceable to the Center for Disease Conrtrol and Prevention (CDC) test method. Platelet mean volume Auto (B ld) [Entitic vol]Ordered By: [facility] on 03-13-2022 Platelet mean volume (Bld) [Entitic vol] 8.6 fL 6.3-10.7 [facility] Platelets Auto (Bld) [#/Vol] Ordered By: [facility] on 03-13-2022 Platelets (Bld) [#/Vol] 283 10*3/uL 150-450 [facility] Protein [Mass/volume] in Ser um or PlasmaOrdered By: [facility] on 03-13-2022 Protein [Mass/Vol] 6.8 g/dL 6.1-7.9 [facility] RBC Auto (Bld) [#/Vol]Ordere d By: [facility] on 03-13-2022 RBC (Bld) [#/Vol] 4.60 10*6/uL 3.60-5.00 [facility] Serum or plasma alanine og otransferase measurement without P-5'-P (enzymatic activiOrdered By: [facility] on 03-13-2022 ALT No additional P-5'-P [Catalytic activity/Vol] 21 U/L 10-60 [facility] Serum or plasma alkaline veronica sphatase measurement (enzymatic activity/volume)Ordered By: [facility] on 03-13-2022 ALP [Catalytic activity/Vol] 42 U/L 32-92 [facility] Serum or plasma anion gap de terminationOrdered By: [facility] on 03-13-2022 Anion gap [Moles/Vol] 9.3 mmol/L 6.0-15.0 [facility] Serum or plasma aspartate am inotransferase measurement (enzymatic activity/volume)Ordered By: [facility] on 03-13-2022 AST [Catalytic activity/Vol] 22 U/L 10-42 [facility] Serum or plasma calcium xiomara urement (mass/volume)Ordered By: [facility] on 03-13-2022 Calcium [Mass/Vol] 9.2 mg/dL 8.2-10.2 [facility] Serum or plasma chloride jerry surement (moles/volume)Ordered By: [facility] on 03-13-2022 Chloride [Moles/Vol] 103 mmol/L 95-114 [facility] Serum or plasma glucose xiomara urement (mass/volume)Ordered By: [facility] on 03-13-2022 Glucose [Mass/Vol] 91 mg/dL 70-100 [facility] Comment on above: ADA recommended refe rence rangeRandom Glucose Reference Range is dependent on time and content of last meal. Glucose of more than 200 mg/dL in a nonstressed, ambulatory subject supports the diagnosis of Diabetes Mellitus. Serum or plasma high density lipoprotein (HDL) cholesterol measurementOrdered By: [facility] on 03-13-2022 Cholesterol in HDL [Mass/Vol] 56 mg/dL 35-85 [facility] Comment on above: HDL CHOL ATP-III CLA SSIFICATION Cardiovascular RiskHDL > or equal to 60 mg/dL LOWHDL < 40 mg/dL HIGH Serum or plasma potassium me asurement (moles/volume)Ordered By: [facility] on 03-13-2022 Potassium [Moles/Vol] 4.1 mmol/L 3.5-5.1 [facility] Serum or plasma sodium measu rement (moles/volume)Ordered By: [facility] on 03-13-2022 Sodium [Moles/Vol] 136 mmol/L 136-146 [facility] Serum or plasma total biliru bin measurement (mass/volume)Ordered By: [facility] on 03-13-2022 Bilirubin [Mass/Vol] 0.6 mg/dL 0.3-1.2 [facility] Serum or plasma total carbon dioxide measurement (moles/volume)Ordered By: [facility] on 03-13-2022 CO2 [Moles/Vol] 27.8 mmol/L 22.0-30.0 [facility] Serum or plasma total choles terol/high density lipoprotein (HDL) cholesterol mass ratOrdered By: [facility] on 03-13-2022 Cholesterol.total/Cholest richard in HDL [Mass ratio] 3.2 {ratio} <5.0 [facility] Serum or plasma urea nitroge n measurement (mass/volume)Ordered By: [facility] on 03-13-2022 Urea nitrogen [Mass/Vol] 9 mg/dL 01-01 [facility] TSH DL <= 0.005 mIU/L QnOrde red By: [facility] on 03-13-2022 TSH Qn 3.87 m[IU]/L 0.45-5.33 [facility] Thyroid Stimulating Hormoneo n 03-13-2022 TSH Qn 3.87 m[IU]/L Normal 0.45-5.33 [facility] Comment on above: Result Comment: PERF ORMED BY: [facility] [address] [place] [address] PATHOLOGIST GAMBLING SUPERVISOR YEN ESCOBAR M.D. Performed By: #### O UTREACH CMP, OUTREACH LIPID, OUTREACH TSH, CBCNOOUTREACH #### [facility] [address] [place] [id number] [facility] Vital Signs Date Time Vital Sign Value Performing Clinician Facility 08-28-2024 10:37-0400 Body mass index (BMI) [Ratio] 28.67 kg/m2 [facility] Work Phone: [facility] 08-28-2024 10:37-0400 Body weight 75.75 kg Sunsihne THAO Work Phone: [facility] 08-28-2024 10:37-0400 Diastolic blood pressure 64 mm[Hg] Sunshine THAO Work Phone: [facility] 08-28-2024 10:37-0400 Systolic blood pressure 100 mm[Hg] Sunshine THAO Work Phone: [facility] 03-13-2024 14:00-0500 Hourly Rounding [facility] 03-13-2024 14:00-0500 Promise to Return [facility] 03-13-2024 13:00-0500 Hourly Rounding [facility] 03-13-2024 13:00-0500 Promise to Return [facility] 03-13-2024 12:00-0500 Hourly Rounding [facility] 03-13-2024 12:00-0500 Promise to Return [facility] 03-13-2024 04:08-0500 Heart rate 61 /min [facility] 03-13-2024 04:08-0500 SaO2% (BldA) [Mass fraction] 98 % [facility] 03-13-2024 04:07-0500 Diastolic blood pressure 61 mm[Hg] [facility] 03-13-2024 04:07-0500 Mean blood pressure 73 mm[Hg] [facility] 03-13-2024 04:07-0500 Systolic blood pressure 96 mm[Hg] [facility] 03-13-2024 04:00-0500 Blood Pressure Location [facility] 03-13-2024 04:00-0500 Body temperature 97.88 [degF] [facility] 03-13-2024 01:00-0500 Blood Pressure Location [facility] 03-13-2024 01:00-0500 Diastolic blood pressure 58 mm[Hg] [facility] 03-13-2024 01:00-0500 Heart rate 67 /min [facility] 03-13-2024 01:00-0500 Mean blood pressure 69 mm[Hg] [facility] 03-13-2024 01:00-0500 Systolic blood pressure 90 mm[Hg] [facility] 03-13-2024 00:49-0500 Heart rate 63 /min [facility] 03-13-2024 00:49-0500 SaO2% (BldA) [Mass fraction] 98 % [facility] 03-13-2024 00:49-0500 Diastolic blood pressure 47 mm[Hg] [facility] 03-13-2024 00:49-0500 Mean blood pressure 60 mm[Hg] [facility] 03-13-2024 00:49-0500 Systolic blood pressure 85 mm[Hg] [facility] 03-13-2024 00:49-0500 Body temperature 97.52 [degF] [facility] 03-12-2024 19:41-0500 SaO2% (BldA) [Mass fraction] 99 % [facility] 03-12-2024 19:40-0500 Body temperature 97.88 [degF] [facility] 03-12-2024 19:40-0500 Mean blood pressure 89 mm[Hg] [facility] 03-12-2024 16:00-0500 Body temperature 98.24 [degF] [facility] 03-12-2024 13:01-0500 Body temperature 97.88 [degF] [facility] 03-12-2024 13:00-0500 Heart rate 87 /min [facility] 03-12-2024 11:53-0500 Mean blood pressure 71 mm[Hg] [facility] 03-12-2024 11:53-0500 Respiratory rate 13 /min [facility] 03-12-2024 11:00-0500 Mean blood pressure 73 mm[Hg] [facility] 03-12-2024 10:30-0500 Respiratory rate 11 /min [facility] 03-12-2024 07:04-0500 Respiratory rate 16 /min [facility] 03-12-2024 05:46-0500 Heart rate 84 /min [facility] Encounters Encounter Date Encounter Type Care Provider Facility Start: 08-28-2024 End: 08-28-2024 Nicolasa THAO Work Phone: [facility] Start: 08-28-2024 End: 08-28-2024 Bamboo flowsheet Sunshine THAO Work Phone: [facility] Start: 08-28-2024 End: 08-28-2024 Clinisync Result Encounter Sunshine THAO Work Phone: [facility] Unsolicited Start: 08-28-2024 End: 08-28-2024 Patient encounter procedure Sunshine THAO Work Phone: [facility] Work Phone: Start: 08-28-2024 End: 08-28-2024 Periodic preventive med est patient 18-39 yrs Sunshine THAO Work Phone: [facility] Comment on above: Well woman exam with routine gynecological exam; Missed menses Start: 06-04-2024 End: 06-06-2024 ambulatory JENNA BA [facility] Start: 06-04-2024 End: 06-06-2024 Subsequent hospital visit by physician Jenna Ba DO Work Phone: [facility] Comment on above: Palpitations; Pre-syncope Start: 03-12-2024 End: 03-13-2024 ambulatory Moses Smith Facility:[facility] Start: 03-12-2024 Emergency department patient visit DO Evelynejames Lovell Facility:[facility] Start: 03-12-2024 End: 03-13-2024 Observation Kai Gurrola [facility] Start: 08-24-2023 End: 08-24-2023 ambulatory SUNSHINE DING Not Available Start: 05-26-2022 End: 05-26-[address] QUINN VASQUEZ . Facility:[facility] Start: 05-12-2022 End: 05-13-[address] QUINN VASQUEZ . Facility:[facility] Start: 03-13-2022 End: 03-13-2022 ambulatory [facility] Facility:[facility] Start: 03-13-2022 End: 03-13-2022 ambulatory PHYSICIAN ALTON LEON [facility] Work Phone: Start: 03-13-2022 End: 03-13-2022 Departed Referred PHYSICIAN NO [facility] Procedures Date Procedure Procedure Detail Performing Clinician Start: 08-28-2024 [facility] PREG QUANT HCG Sunshine THAO Work Phone: Start: 08-28-2024 Urine test visual color cmprsn meths Sunshine THAO Work Phone: None (qualifier value) Chelsea bradley Gaetanoamandareena Plan of Treatment Date Care Activity Detail Author Start: 09-28-2024 Depression Screen Depression Screen [facility] [employer] Start: 08-30-2024 End: 08-30-2024 ambulatory 08/30/2024 2:00 PM EDT Initial [facility] [address] [address] [facility] Start: 08-30-2024 End: 08-30-2024 Professional / ancillary services management 08/30/2024 1:30 PM EDT Ancillary Procedure [facility] [address] [place] [address] [facility] Start: 08-28-2024 End: 08-28-2025 hCG, quantitative, hCG, quantitative, Lab Routine Missed menses Expected: 08/28/2024 (Approximate), Expires: 08/28/2025 [facility] Comment on above: Expected: 08/28/2024 (Approximate), Expires: 08/28/2025 Start: 08-28-2024 End: 11-28-2024 US Pelvis transvaginal US OB transvaginal Imaging Routine Missed menses Expected: 08/28/2024, Expires: 11/28/2024 [facility] Comment on above: Expected: 08/28/2024 , Expires: 11/28/2024 Start: 12-11-2023 COVID-19 Vaccine ( season) COVID-19 Vaccine ( season) [employer] Start: 11-10-2023 Influenza vaccination [facility] Start: 10-29-2019 Screening for malign ant neoplasm of cervix Pap smear [facility] Start: 2017 DTaP/Tdap/Td vaccine (1 - Tdap) DTaP/Tdap/Td vaccine (1 - Tdap) [facility] Start: 2017 Hepatitis B vaccine (1 of 3 - 19+ 3-dose series) Hepatitis B vaccine (1 of 3 - 19+ 3-dose series) [facility] Start: 2016 Hepatitis C screening Hepatitis C sc reen [facility] Start: 2013 HIV screening HIV screen [facility] Start: 2013 HPV vaccine (1 - 3-d ose series) HPV vaccine (1 - 3-dose series) [facility] Start: 10-29-2011 Varicella vaccine (1 of 2 - 13+ 2-dose series) Varicella vaccine (1 of 2 - 13+ 2-dose series) [facility] Cytology Cervical or vaginal smear or scraping study Pap Smear Pathology and Cytology Routine Well woman exam with routine gynecological exam Ordered: 08/28/2024 [facility] [employer] Work Phone: Comment on above: Ordered: 08/28/2024 End: 06-04-2024 Extended cardiac holter monitor (3 days-14 day) [facility] Comment on above: 1 Occurrences starti ng 06/04/2024 until 06/04/2024 Immunizations Immunization Date Immunization Notes Care Provider Peace franco 01-09-2019 influenza virus vacc ine, live, attenuated, for intranasal use Kai Mcrae [facility] [place] Payers Date Payer Category Payer Unknown [id number] 2024 Private Health Insurance 2022 Self-pay [id number] 2019 Private Health Insurance [id number] 1998 Unknown [id number] 1998 Unknown [id number] 1998 Unknown [id number] 1998 Unknown [id number] 1998 Unknown [id number] 1998 Unknown [id number] 1998 Unknown [id number] 1998 Unknown [id number] 1959 Unknown [id number] Unknown [place] KEY/NORMA [id number] Unknown [id number] Social History Date Type Detail Facility Start: 01-01-2017 End: 08-18-2020 Tobacco smoking status NDIS Never smoked tobacco (finding) [facility] Start: 2000 Sex Assigned At Female F [facility] Comment on above: Denies Tobacco smoking status No Smokin g Status Entered [facility] Start: 08-18-2020 End: 09-29-2023 Sex Assigned At Female [facility] Start: 08-18-2020 Tobacco use and exposure Smokeless tobacco non-user [employer] Start: 03-15-2024 Alcoholic beverage intake Lifetime non-drinker (finding) [employer] Start: 08-18-2020 End: 09-29-2023 History of Social function [employer] How often to you hav e a drink containing alcohol? Never [employer] How many standard drinks containing alcohol do you have on a typical day? Not asked [facility] [employer] (I/We) worried hawk er (my/our) food would run out before (I/we) got money to buy more. Never true Bon [employer] Start: 1998 Sex assigned at Not on file B on [employer] [facility] consumption unknown [facility] Start: 08-23-2023 Gender identity Identifies as female gender (finding) [facility] Start: 08-23-2023 Sexual orientation Heterosexual (fin ding) [facility] Functional Status Date Assessment Result Facility 03-12-2024 Functional Status No [facility] 03-12-2024 Functional Status [facility] Clinical Notes 03-12-2024 to 08-28-2024 KEESHA Resendiz - 08/28/2024 10:00 AM EDT Note Date & Type Note Facility 08-28-2024 History of Presen t illness Narrative Reason for Appointment: Patient ID: Jyoti Torres is a 23 y.o. female who presents for Well Women Visit Patient presents today for Return OB appointment. MEDICATIONS No current outpatient medications ALLERGIES No Known Allergies PROBLEMS Active Ambulatory Problems Diagnosis Date Noted No Active Ambulatory Problems Resolved Ambulatory Problems Diagnosis Date Noted No Resolved Ambulatory Problems No Additional Past Medical History HISTORY PAST MEDICAL HISTORY SOCIAL HISTORY History reviewed. No pertinent past medical history. Social History Tobacco Use Smoking status: Not on file Smokeless tobacco: Not on file Substance Use Topics Alcohol use: Not on file Drug use: Not on file FAMILY HISTORY No family history on file. SURGICAL HISTORY History reviewed. No pertinent surgical history. REVIEW OF SYSTEMS Review of Systems: Review of Systems Constitutional: Negative. HENT: Negative. Eyes: Negative. Respiratory: Negative. Cardiovascular: Negative. Gastrointestinal: Negative. Genitourinary: Negative. Musculoskeletal: Negative. Skin: Negative. Neurological: Negative. All other systems reviewed and are negative. Hematological: Negative. Endocrine: Negative. Allergic/Immunologic: Negative. OBJECTIVE Objective: Physical Exam Constitutional: Appearance: Normal appearance. She is normal weight. Genitourinary: Right Adnexa: not tender and no mass present. Left Adnexa: not tender and no mass present. No cervical discharge. Breasts: Breasts are soft. Right: Normal. Left: Normal. HENT: Head: Normocephalic. Nose: Nose normal. Mouth/Throat: Mouth: Mucous membranes are moist. Cardiovascular: Rate and Rhythm: Normal rate. Pulses: Normal pulses. Pulmonary: Effort: Pulmonary effort is normal. Breath sounds: Normal breath sounds. Abdominal: General: Bowel sounds are normal. Palpations: Abdomen is soft. Musculoskeletal: General: Normal range of motion. Cervical back: Normal range of motion. Neurological: General: No focal deficit present. Mental Status: She is alert and oriented to person, place, and time. Skin: General: Skin is warm and dry. Psychiatric: Mood and Affect: Mood normal. Behavior: Behavior normal. Thought Content: Thought content normal. Judgment: Judgment normal. Vitals and nursing note reviewed. Exam conducted with a mother baby rn present. Vitals: Estimated body mass index is 28.67 kg/m as calculated from the following: Height as of 08/24/23: 5' 4 . Weight as of this encounter: 167 lb. BP: 100/64 No LMP recorded (within months). ASSESSMENT & PLAN ICD-10-CM 1. Well woman exam with routine gynecological exam Z01.419 Pap Smear POCT , urine manually resulted 2. Missed menses N92.6 hCG, quantitative, US OB transvaginal hCG, quantitative, Annual Exam: Patient presents today for an annual exam. Patient states she is doing well and has no complaints. Pap was obtained without difficulty. Orders Placed This Encounter Procedures US OB transvaginal hCG, quantitative, POCT , urine manually resulted Patient is positive today, we will send patient for hcg quant and get set up for intake Follow Up: Patient is to return in one year for annual unless needed otherwise. Documented by KEESHA Resendiz on behalf of: KEESHA Resendiz documented in this encounter [facility] 03-13-2024 Evaluation + Plan note Extrac pepper from: Title:Discharge Note Author:Moses Smith DO Date:03/13/24 Discharge To, Anticipated II - Home with responsible caregiver Prescriptions No active prescription medications Home No active home medications With When Contact Information Mark RIZVI, Benjamin, CAR Within 2 to 4 weeks Additional Instructions: Call for followup appointment Remigio RIZVI, KYLAH Esteves Within [address] [facility] [place] [address]- Additional Instructions: Postural Orthostatic Tachycardia Syndrome Orthostatic Hypotension Near-Syncope, [id number] Extracted from: Title:Consult Note- Neurology Author:Hayley Nicholas RN Date:03/13/24 The patient is a 23-year-old female with no past medical history who was admitted with abdominal pain and experienced episode loss of consciousness manifested as associated with standing from the toilet on 2 occasions. Possible etiologies include cerebral hypoperfusion and intracranial or extracranial cerebral artery stenosis, dysautonomia, or a cardiovascular etiology contributing to cerebral hypoperfusion. The patient's symptoms seem most consistent with vasovagal syncope potentially exacerbated by viral illness. I cannot completely exclude new onset seizure contributing to the patient's loss of consciousness given the provided history. Patient may have a component of medication side effects and dehydration contributing to orthostatic hypotension which contributed to his clinical episode. -I will consider further evaluation from a neurological standpoint including vascular evaluation and potentially EEG based upon patient's clinical course and cardiovascular evaluation. -I recommend monitoring the patient's blood pressure heart rate for signs of lability and dysautonomia particularly hypotension or bradycardia. -I recommend the patient be monitored on telemetry to assess for cardiac arrhythmia which may contribute to cerebral hypoperfusion -I recommend considering a cardiovascular evaluation based upon the results of the above evaluation -I recommend monitoring the patient's fluid intake while in the hospital and I counseled on adequate fluid intake as an outpatient. -I counseled the patient on possible diagnosis, prognosis, evaluation, treatment options. I answered all questions. The patient states understanding. -I discussed the assessment and treatment recommendations with the hospitalist 1. Syncope (R55: Syncope and collapse) 2. Postural orthostatic tachycardia syndrome [POTS] (G90.A: Postural orthostatic tachycardia syndrome [POTS]) 3. Orthostatic syncope (I95.1: Orthostatic hypotension) 4. Abdominal pain, acute (R10.9: Unspecified abdominal pain) 5. Hypotension (I95.9: Hypotension, unspecified) 6. Leukocytosis (D72.829: Elevated white blood cell count, unspecified) Extracted from: Title:Admission H & P Author:Moses Smith DO Date:03/12/24 Patient will be admitted und er observation status due to estimated length of stay less than 2 midnights. All images, labs, EKGs reviewed DVT PPx PAS bilaterally Diet regular CODE STATUS/full code 1. Syncope (R55: Syncope and collapse) Differentials include POTS, orthostatic syncope, vasovagal CT head negative Telemetry Check echo Consult cardio Consult neurology Orthostatics positive in ER IV fluids Lab work relatively benign Check TSH Check cortisol level Ordered: Initial Hospital Care/Day Moderate 55 Minutes [id number] 2. Postural orthostatic tachycardia syndrome [POTS] (G90.A: Postural orthostatic tachycardia syndrome [POTS]) Treatment as above 3. Orthostatic syncope (I95.1: Orthostatic hypotension) Treatment as above 4. Abdominal pain, acute (R10.9: Unspecified abdominal pain) Unknown cause CT of A/P as well as ultrasound negative for acute findings Patient does have elevated leukocytosis may be reactive UA negative If pain worsens may need GI consult 5. Hypotension (I95.9: Hypotension, unspecified) Patient states systolic blood pressure normally 120 IV fluids Monitor 6. Leukocytosis (D72.829: Elevated white blood cell count, unspecified) Likely reactive No source of infection No antibiotics needed at this time Orders: acetaminophen, 650 mg = 2 tab(s), Tab, Oral, q6hr PRN Pain, Routine, Start date 03/12/24 10:31:00 EST, 03/12/24 10:31:00 EST ondansetron, 4 mg = 2 mL, Injection, IV Push, q6hr PRN Nausea, Routine, Start date 03/12/24 10:31:00 EST, 03/12/24 10:31:00 EST Activity As Tolerated Ambulate with Assistance Basic Metabolic Panel Below the Knee Intermittent Pneumatic Compression Device CBC w/ Auto Diff Change Attending Consult to Cardiology Consult to Neurology Cortisol Echo Transthoracic Complete Pulse Oximetry Regular Diet Resuscitation Status - Full TSH With T4fr Reflex Vital Signs Weight Addendum by Fab Smith DO, am on March 12, 2024 12:09:17 EST Of note patient states her last menstrual cycle was 2 to 3 weeks ago. Patient states menstrual cycles have been irregular since coming off of control 2 years ago. Extracted from: Title:ED Note Author:Tuan Lovell DO Date :03/12/24 Abdominal pain, acute (R10.9 : Unspecified abdominal pain) Syncope (R55: Syncope and collapse) Orders: Sodium Chloride 0.9% intravenous solution, 500 mL, Soln-IV, IV, Once, Stop date 03/12/24 5:57:00 EST, STAT, Start date 03/12/24 5:57:00 EST, 500 mL/hr, Infuse over 1, hour(s) Basic Metabolic Panel CBC w/ Auto Diff CT Abdomen/Pelvis w/ Contrast ECG 12 Lead Adult eGFR Hepatic Function Panel Lipase Level Troponin 0 Hr. U Beta Hcg Qual UA with Cult Rflx Addendum by Earl Foote DO on March 12, 2024 10:27:34 EST Patient was signed out to me by the prior physician I did review full workup here in the emergency department. Patient does have leukocytosis. CT scan does show some inflammation around the right ovary and they did recommend pelvic ultrasound. Pelvic ultrasound reveals no acute pathology specifically no torsion and there is no evidence of appendicitis at this time. Patient was able to tolerate p.o. challenge here states she still has some abdominal discomfort is treated with Toradol. She states that she still feels lightheaded and we did try to stand her up she was orthostatic positive and her blood pressure did drop despite taking p.o. fluids and despite receiving 500 mL fluid bolus. I did order repeat 1 L fluid bolus. Patient did state that she had echocardiogram ordered previously but it sounds like it may have been blocked by insurance issues previously so she has never had workup for her syncope which has happened in the past and she has had now 2 or 3 episodes of syncope here today including 2 episodes in the hospital. Therefore case discussed with the hospitalist patient will need to be admitted both for further evaluation of her syncope as well as her abdominal discomfort and leukocytosis as she will likely need serial examinations and repeat CBC. Additional diagnoses: Leukocytosis, hypotension Diagnostic Tests Pending * Cortisol 03/13/24 [facility] 12-03-2024 Hospital Discharge instructions Patient Education 03/13/2024 11:57:33 Postural Orthostatic Tachycardia Syndrome Postural Orthostatic Tachycardia Syndrome Postural orthostatic tachycardia syndrome (POTS) is a group of symptoms that occur along with an increase in heart rate when a person stands up after lying down. The symptoms include light-headednessor fainting, and they improve when the person lies back down. POTS may be associated with another medical condition, or it may occur on its own. What are the causes? The cause of this condition is not known, but many conditions and diseases are associated with it. What increases the risk? This condition is more likely to develop in: Women 15 50 years old. Women who are . Women who are in their period (menstruating). People who have certain conditions, such as: ?Infection from a virus. ?Diseases that cause the body's defense system (immune system) to attack healthy organs. These are called autoimmune diseases. ?Losing a lot of red blood cells (anemia). ?Losing too much water in the body (dehydration). ?An overactive thyroid (hyperthyroidism). People who take certain medicines. People who have had a major injury. People who have had surgery. What are the signs or symptoms? The most common symptom of this condition is light-headedness when you stand up from a lying or sitting position. Other symptoms may include: Feeling a rapid increase in the heartbeat (tachycardia) within 10 minutes of standing up. Chest pain. Shortness of breath. Breathing that is deeper and faster than normal (hyperventilation). Fainting. Confusion. Trembling. Weakness. Headache. Anxiety. Nausea. Sweating or flushing. Symptoms may be worse in the morning, and they may be relieved by lying down. How is this diagnosed? This condition is diagnosed based on: Your symptoms. Your medical history. A physical exam. Checking your heart rate when you are lying down and after you stand up. Checking your blood pressure when you go from lying down to standing up. Blood and urine tests to measure hormones that change with blood pressure. The blood tests will be done when you are lying down and when you are standing up. You may have other tests to check for conditions or diseases that are associated with POTS. How is this treated? Treatment for this condition depends on how severe your symptoms are and whether you have any conditions or diseases that are associated with POTS. Treatment may involve: Treating any conditions or diseases that are associated with POTS. Drinking two glasses of water before getting up from a lying position. Increasing salt (sodium) in your diet. Taking medicine to control blood pressure and heart rate (beta-danette). Avoiding certain medicines. Starting an exercise program under the supervision of a health care provider. Follow these instructions at home: Medicines Take xexj-nao-fwmlgny and prescription medicines only as told by your health care provider. Let your health care provider know about all prescription or iifz-ffy-aqxmvfn medicines you take. These include herbs, vitamins, and supplements. You may need to stop or adjust some medicines if theycause this condition. Talk with your health care provider before starting any new medicines. Eating and drinking Drink enough fluid to keep your urine pale yellow. If told by your health care provider, drink two glasses of water before getting up from a lying position. Follow instructions from your health care provider about how much sodium you should include in yourdiet. Avoid heavy meals. Eat several small meals a day instead of a few large meals. General instructions Do an aerobic exercise for 20 minutes a day, at least 3 days a week. Aerobic exercises are those that cause your heart to beat faster. Ask your health care provider what kinds of exercise are safe for you. Do not use any products that contain nicotine or tobacco. These products include cigarettes, chewing tobacco, and vaping devices, such as e-cigarettes. These can interfere with blood flow. If you need help quitting, ask your health care provider. Keep all follow-up visits. This is important. Contact a health care provider if: Your symptoms do not improve after treatment. Your symptoms get worse. You develop new symptoms. Get help right away if: You have chest pain. You have difficulty breathing. You have fainting episodes. These symptoms may be an emergency. Get help right away. Call 911. Do not wait to see if the symptoms will go away. Do not drive yourself to the hospital. Summary POTS is a group of symptoms that occur along with an increase in heart rate when a person stands upafter lying down. The most common symptom is light-headedness when you stand up. Treatment for this condition includes treating any underlying conditions, drinking plenty of water,stopping or changing some medicines, or starting an exercise program. Get help right away if you have chest pain, difficulty breathing, or fainting episodes. These symptoms may be an emergency. This information is not intended to replace advice given to you by your health care provider. Make sure you discuss any questions you have with your health care provider. Document Revised: 10/08/2021 Document Reviewed: 10/08/2021 [employer] Patient Education 2023 [employer]. 03/13/2024 11:57:29 Orthostatic Hypotension Orthostatic Hypotension Blood pressure is a measurement of how strongly, or weakly, your circulating blood is pressing against the duckworth of your arteries. Orthostatic hypotension is a drop in blood pressure that can happen when you change positions, such as when you go from lying down to standing. Arteries are blood vessels that carry blood from your heart throughout your body. When blood pressure is too low, you may not get enough blood to your brain or to the rest of your organs. Orthostatichypotension can cause light- headedness, sweating, rapid heartbeat, blurred vision, and fainting. These symptoms require further investigation into the cause. What are the causes? Orthostatic hypotension can be caused by many things, including: Sudden changes in posture, such as standing up quickly after you have been sitting or lying down. Loss of blood (anemia) or loss of body fluids (dehydration). Heart problems, neurologic problems, or hormone problems. . Aging. The risk for this condition increases as you get older. Severe infection (sepsis). Certain medicines, such as medicines for high blood pressure or medicines that make the body lose excess fluids (diuretics). What are the signs or symptoms? Symptoms of this condition may include: Weakness, light-headedness, or dizziness. Sweating. Blurred vision. Tiredness (fatigue). Rapid heartbeat. Fainting, in severe cases. How is this diagnosed? This condition is diagnosed based on: Your symptoms and medical history. Your blood pressure measurements. Your health care provider will check your blood pressure when youare: ?Lying down. ?Sitting. ?Standing. A blood pressure reading is recorded as two numbers, such as 120 over 80 (or 120/80). The first ( top ) number is called the systolic pressure. It is a measure of the pressure in your arteries as your heart beats. The second ( bottom ) number is called the diastolic pressure. It is a measure of the pressure in your arteries when your heart relaxes between beats. Blood pressure is measured in a unit called mmHg. Healthy blood pressure for most adults is 120/80 mmHg. Orthostatic hypotension is defined as a 20 mmHg drop in systolic pressure or a 10 mmHg drop in diastolic pressure within 3 minutes of standing. Other information or tests that may be used to diagnose orthostatic hypotension include: Your other vital signs, such as your heart rate and temperature. Blood tests. An electrocardiogram (ECG) or echocardiogram. A Holter monitor. This is a device you wear that records your heart rhythm continuously, usually for 24 48 hours. Tilt table test. For this test, you will be safely secured to a table that moves you from a lying position to an upright position. Your heart rhythm and blood pressure will be monitored during the test. How is this treated? This condition may be treated by: Changing your diet. This may involve eating more salt (sodium) or drinking more water. Changing the dosage of certain medicines you are taking that might be lowering your blood pressure. Correcting the underlying reason for the orthostatic hypotension. Wearing compression stockings. Taking medicines to raise your blood pressure. Avoiding actions that trigger symptoms. Follow these instructions at home: Medicines Take nope-hux-mehwnyw and prescription medicines only as told by your health care provider. Follow instructions from your health care provider about changing the dosage of your current medicines, if this applies. Do not stop or adjust any of your medicines on your own. Eating and drinking Drink enough fluid to keep your urine pale yellow. Eat extra salt only as directed. Do not add extra salt to your diet unless advised by your health care provider. Eat frequent, small meals. Avoid standing up suddenly after eating. General instructions Get up slowly from lying down or sitting positions. This gives your blood pressure a chance to adjust. Avoid hot showers and excessive heat as directed by your health care provider. Engage in regular physical activity as directed by your health care provider. If you have compression stockings, wear them as told. Keep all follow-up visits. This is important. Contact a health care provider if: You have a fever for more than 2 3 days. You feel more thirsty than usual. You feel dizzy or weak. Get help right away if: You have chest pain. You have a fast or irregular heartbeat. You become sweaty or feel light-headed. You feel short of breath. You faint. You have any symptoms of a stroke. BE FAST is an easy way to remember the main warning signs of astroke: ?B - Balance. Signs are dizziness, sudden trouble walking, or loss of balance. ?E - Eyes. Signs are trouble seeing or a sudden change in vision. ?F - Face. Signs are sudden weakness or numbness of the face, or the face or eyelid drooping on oneside. ?A - Arms. Signs are weakness or numbness in an arm. This happens suddenly and usually on one side of the body. ?S - Speech. Signs are sudden trouble speaking, slurred speech, or trouble understanding what people say. ?T - Time. Time to call emergency services. Write down what time symptoms started. You have other signs of a stroke, such as: ?A sudden, severe headache with no known cause. ?Nausea or vomiting. ?Seizure. These symptoms may represent a serious problem that is an emergency. Do not wait to see if the symptoms will go away. Get medical help right away. Call your local emergency services (911 in the [place] Do not drive yourself to the hospital. Summary Orthostatic hypotension is a sudden drop in blood pressure. It can cause light-headedness, sweating, rapid heartbeat, blurred vision, and fainting. Orthostatic hypotension can be diagnosed by having your blood pressure taken while lying down, sitting, and then standing. Treatment may involve changing your diet, wearing compression stockings, sitting up slowly, adjusting your medicines, or correcting the underlying reason for the orthostatic hypotension. Get help right away if you have chest pain, a fast or irregular heartbeat, or symptoms of a stroke. This information is not intended to replace advice given to you by your health care provider. Make sure you discuss any questions you have with your health care provider. Document Revised: 06/11/2021 Document Reviewed: 06/11/2021 [employer] Patient Education 2023 Aunt Bertha. 03/13/2024 11:56:07 Near-Syncope, [id number] Near-Syncope Near-syncope is when you suddenly feel like you might pass out or faint. This may also be called presyncope. During an episode of near-syncope, you may: Feel dizzy, weak, or light-headed. It may feel like the room is spinning. Feel like you may vomit (nauseous). See spots or see all white or all black. Have cold, clammy skin. Feel warm and sweaty. Hear ringing in your ears. This condition is caused by a sudden decrease in blood flow to the brain. This can result from manycauses, but most of those causes are not dangerous. However, near-syncope may be a sign of a serious medical problem, so it is important to seek medical care. Follow these instructions at home: Medicines Take puai-tjp-pfagymh and prescription medicines only as told by your doctor. If you are taking blood pressure or heart medicine, get up slowly and spend many minutes getting ready to sit and then stand. This can help with dizziness. Lifestyle Do not drive, use machinery, or play sports until your doctor says it is okay. Do not drink alcohol. Do not smoke or use any products that contain nicotine or tobacco. If you need help quitting, ask your doctor. Avoid hot tubs and saunas. General instructions Be aware of any changes in your symptoms. Talk with your doctor about your symptoms. You may need to have testing to help find the cause. If you start to feel like you might pass out, sit or lie down right away. If sitting, lower your head down between your legs. If lying down, raise (elevate) your feet above the level of your heart. ?Breathe deeply and steadily. Wait until all of the symptoms are gone. ?Have someone stay with you until you feel better. Drink enough fluid to keep your pee (urine) pale yellow. Avoid standing for a long time. If you must stand for a long time, do movements such as: ?Moving your legs. ?Crossing your legs. ?Flexing and stretching your leg muscles. ?Squatting. Keep all follow-up visits. Contact a doctor if: You continue to have episodes of near fainting. Get help right away if: You pass out or faint. You have any of these symptoms: ?Fast or uneven heartbeats (palpitations). ?Pain in your chest, belly, or back. ?Shortness of breath. You have a seizure. You have a very bad headache. You are confused. You have trouble seeing. You are very weak. You have trouble walking. You are bleeding from your mouth or butt. You have black or tarry poop (stool). These symptoms may be an emergency. Get help right away. Call your local emergency services (131 int [place] Do not wait to see if the symptoms will go away. Do not drive yourself to the hospital. Summary Near-syncope is when you suddenly feel like you might pass out or faint. This condition is caused by a sudden decrease in blood flow to the brain. Near-syncope may be a sign of a serious medical problem, so it is important to seek medical care. If you start to feel like you might pass out, sit or lie down right away. If sitting, lower your head down between your legs. If lying down, raise (elevate) your feet above the level of your heart. Talk with your doctor about your symptoms. You may need to have testing to help find the cause. This information is not intended to replace advice given to you by your health care provider. Make sure you discuss any questions you have with your health care provider. Document Revised: 08/06/2021 Document Reviewed: 08/06/2021 [employer] Patient Education 2023 [employer] Follow Up Care 03/12/2024 05:45:24 With:Jenna BA Address: [address] [facility] [place] [address] [phone] Business (1) When:03/15/2024 09:45:00 With:Anthony Flood MD, NEU Address: [place] [address] [employer] [place] [id number] When:03/28/2024 13:40:00 Comments:Will being Hue Bentley PLUNKET NURSE at this appointment. With:Benjamin Flores MD, CAR Address: When:2 to 4 weeks Comments:Call for followup appointment [facility] 12-03-2024 NoteDischarge Summary Admission and Discharge Information Admitting Physician - Thor RIZVI, Kai Lagos Consulting Physician - Remigio RIZVI, Benjamin Ruiz MD [facility] Cardio, XXXX Admitting Diagnoses: Discharge Diagnoses 1. Syncope, 03/12/2024 2. Postural orthostatic tachycardia syndrome [POTS], 03/12/2024 3. Orthostatic syncope, 03/12/2024 4. Abdominal pain, acute, 03/12/2024 5. Hypotension, 03/12/2024 6. Leukocytosis, 03/12/2024 Abdominal pain, 03/12/2024 Procedure History None. Hospital Course 23-year-old female with past medical history of systolic murmur, presented to ER on 03/12 due to abdominal pain. Patient states pain started approximately 2 AM. Pain got worse throughout the night. Patient states she went to the bathroom and urinated and got up to wash her hands and became lightheaded and had syncopal episode. Patient denied hitting her head and did not lose consciousness. Patient states pain is mostly lower but can feel it everywhere. Patient states she was having mild fever and chills. Patient denies any nausea vomiting diarrhea, constipation, chest pain, or other symptoms at this time. Patient denies any history of tobacco, alcohol, drug abuse. Patient works at home. Patient denies any surgical history. Patient still has gallbladder, appendix, uterus, ovaries. Patient states she had similar episode of syncope back when she was in high school after going to the bathroom and urinating as well. Patient states she has family history of kidney stones but her herself has never had one. In ED patient was found to have leukocytosis of 16, CT A/P showed possible mild inflammation of ovary and ultrasound was suggested which was negative for torsion. Patient was orthostatic hypotensive.Patient was given IV fluids. Patient was admitted for further workup and treatment. Patient was monitored on telemetry. Neurology as well as cardiology were consulted and followed patient. Neurology recommended patient follow-up with them as outpatient for EEG. Neurology felt symptoms were most likely vasovagal due to exacerbation of viral illness with abdominal pain. Cardiology recommended echo which was negative for any acute findings. They recommended to make sure patient stay hydrated and they can follow-up with them as outpatient in 2 to 4 weeks. I did discuss diagnosis and treatment plan with patient as well as who agree and accept plan of treatment. On the day of discharge patient states she had no abdominal pain and felt great and was ready to be discharged. Patient stable at discharge. Medication changes no changes Follow-up appointments PCP 5 to 7 days Cardiology 2 to 4 weeks Neurology 2 to 4 weeks Discharge time 36 minutes which included extensive conversation with patient about diagnosis and treatment plan. Along with communication with consultants, nursing, case management. Services Consulted Consult to Cardiology - Ordered -- 03/12/24 10:36:00 EST, syncope, Consult and Co-manage, [facility] Consult to Neurology - Ordered -- 03/12/24 10:35:00 EST, syncope, Consult and Co-manage Consult to Director Integrated - Ordered -- 03/12/24 13:52:06 EST Physical Exam Vitals & Measurements T: 36.6 ???C(Oral) TMIN: 36.4 ???C(Axillary) TMAX: 36.8 ???C(Oral) HR: 61(Monitored) BP: 96/61 SpO2: 98% HT: 162.56 cm WT: 79.4 kg General: NAD, no acute distress, comfortable Skin: Warm, dry Head: No trauma, normocephalic Neck: Trachea midline, supple, negative for JVD Eye: Conjunctive are clear, clear sclera , EOMI ENMT: oral mucosa moist, no lesions or edema nose or external ears Cardiovascular: Regular rate and rhythm, S1-S2 present, 2/6 systolic murmur Respiratory: Lungs clear to auscultation, bilateral symmetric movement, negative for wheezes rales or rhonchi Chest wall: no deformity. Gastrointestinal: Abdomen soft, bowel sounds present, no pain with palpation Back: No tenderness Extremities: Range of motion intact, no edema Neurological: awake, alert, speech normal, cranial nerves II through XII intact, no sensory defects, alert and oriented x3 Psychiatric: cooperative, affect appropriate for age, pleasant Tests Performed Cortisol -- Results Pending -- CT Abdomen/Pelvis w/ Contrast Echo Transthoracic Complete -- Results Pending -- US Pelvis Non-OB Complete Please visit your patient portal for your results or contact your primary care physician. Discharge Plan Discharge Disposition Discharge To, Anticipated II - Home with responsible caregiver Discharge Medication List Prescriptions No active prescription medications Home No active home medications Follow-up With When Contact Information Mark RIZVI, IRIS Alexander Within 2 to 4 weeks Additional Instructions: Call for followup appointment Remigio RIZVI, KYLAH Esteves Within 2 to 4 weeks [place] [address] [address]- Additional Instructions: Patient Education Postural Orthostatic Tac (more content not included)...[facility] SystemComment [facility] above:Result Comment: Electronically Signed By: Moses Smith DO\.br\Date and Time Signed: 03/13/24 12:08 [id number] Note Echocardiology Procedure Exam Date/Time Accession # [id number] Echo Transthoracic 03/13/2024 10:27 EST [id number] Moses Smith DO Complete CPT code [id number] Reason for Exam (Echo Transthoracic Complete) Syncope Report [facility] [address] [id number] Adult Echocardiogram Report Name: JYOTI TORRES Study Date: 03/13/2024 09:56 AM BP: 96/61 mmHg Patient Location: [address] [place] [address] Bed(s) [facility] HR: 57 : 2000 Gender: Female Height: 64 in Age: 23 yrs Ethnicity: T Weight: 174 lb Reason For Study: Syncope BSA: 1.8 m2 History: Murmur Ordering Physician: Kiera Performed By: Leyla Mack, REID, RVT Interpretation Summary This was essentially a normal study. Procedure A complete two-dimensional transthoracic echocardiogram was performed (2D, M- mode, spectral and color flow Doppler). Left Ventricle The left ventricle is grossly normal. The left ventricular ejection fraction is normal. The left ventricular wall motion is normal. Left Atrium The left atrium is grossly normal. Right Atrium The right atrium is grossly normal. Right Ventricle Echocardiology Report The right ventricular systolic function is normal. The right ventricle is normal size. Aortic Valve The trileaflet aortic valve opening is normal. No aortic regurgitation. There is no aortic stenosis. Mitral Valve The mitral valve is grossly normal. There is no mitral regurgitation noted. No mitral valve stenosis. Tricuspid Valve No evidence of tricuspid regurgitation. No evidence of tricuspid stenosis. Pulmonic Valve There is no pulmonic valve regurgitation. Effusion There is no pericardial effusion. MMode/2D Measurements & Calculations RVDd: 2.0 cm LVIDd: 5.2 cm FS: 37.0 % Ao root diam: 2.5 cm IVSd: 0.73 cm LVIDs: 3.3 cm EDV(Teich): 131.2 ml Ao root area: 4.8 cm2 LVPWd: 0.64 cm ESV(Teich): 44.0 ml LA dimension: 3.5 cm EF(Teich): 66.4 % LVOT diam: 1.9 cm LVLd ap4: 8.2 cm EDV(MOD-sp2): 107.0 ml SV(MOD-sp4): 53.6 ml LVOT area: 2.8 cm2 EDV(MOD-sp4): 87.7 ml ESV(MOD-sp2): 29.2 ml LVLs ap4: 6.0 cm EF(MOD-sp2): 72.7 % ESV(MOD-sp4): 34.1 ml EF(MOD-sp4): 61.1 % TAPSE: 2.3 cm IVC Diam: 2.0 cm RV Base_phl: 3.2 cm RVIDd/LVIDd: 0.38 RV Length_phl: 7.0 cm RV Mid_phl: 2.6 cm EF (MOD-bp): 68.8 % LA Vol Index: 24.0 ml/m2 Doppler Measurements & Calculations MV E max tawanna: 120.0 cm/sec MV dec time: 0.18 sec Ao V2 max: 142.0 cm/sec LV V1 max P.4 mmHg MV A max tawanna: 39.2 cm/sec Ao max P.1 mmHg LV V1 mean P.0 mmHg MV E/A: 3.1 Ao V2 mean: 99.1 cm/sec LV V1 max: 116.0 cm/sec Lat Peak E' Tawanna: 18.5 cm/sec Ao mean P.0 mmHg LV V1 mean: 75.8 cm/sec E/E' Lat: 6.5 Ao V2 VTI: 31.6 cm LV V1 VTI: 24.7 cm Med Peak E' Tawanna: 11.1 cm/sec MARY(I,D): 2.2 cm2 E/E' Med: 10.8 MARY(V,D): 2.3 cm2 Echocardiology Report SV(LVOT): 69.6 ml TR max tawanna: 202.4 cm/sec RAP systole: 3.0 mmHg AV VR: 0.82 TR max P.4 mmHg MARY(VTI)/BSA_phl: 1.2 RVSP(TR): 19.4 mmHg FINAL REPORT Dictated: 03/13/2024 9:56 am Benjamin Flores MD Signed (Electronic Signature): 03/13/2024 10:43 am Signed by: Benjamin Flores MD Transcribed by: ROSE Technologist: [facility]12-03-2024 Note Consultation Note Chief Complaint abdomenal pain Reason for Consultation Syncope History of Present Illness Patient is a 23-year-old female who I was asked to see in neurological consultation for syncope. The patient has no reported no past medical history. The patient reports that she has had abdominal pain over the past several days prior to admission to the hospital. The patient states that she did have a fever associated with the symptoms. The patient states that she was using the bathroom and uponrising had an episode of lightheadedness and loss of consciousness. The patient states that she hashad at least 1 of these episodes while in high school similar situation. The patient reports that she did have an episode here in the hospital similarly after using the bathroom. The patient denies any lightheadedness when going from a seated to standing position typically. She denies vertigo or frequent lightheadedness. She denies headaches. She denies unilateral numbness, weakness, or vision changes. Review of Systems Constitutional: no fever, no chills, no sweats, no weakness Respiratory: no shortness of breath, no cough, no orthopnea, no wheezing Cardiovascular: no chest pain, no palpitations, no edema Additional ROS info: Except as noted in the above Review of Systems and in the History of Present Illness all other systems have been reviewed and are negative or noncontributory. Physical Exam Vitals & Measurements T: 36.6 ???C(Oral) TMIN: 36.4 ???C(Axillary) TMAX: 36.8 ???C(Oral) HR: 61(Monitored) RR: 13 BP: 96/61 BP: 97/66(Sitting) BP: 89/47(Standing) SpO2: 98% HT: 162.56 cm WT: 79.4 kg The patient is awake and alert. The patient is oriented x3 Language is intact including comprehension and fluency, fund of knowledge is intact, memory is intact Cranial nerves: Pupils are equal round and reactive to light and accomodation, extraocular movements intact, visual schulte are full to confrontation, funduscopic exam is normal, face is symmetric bilaterally, sensations intact in the face, palate elevates bilaterally, tongue protrudes midline, hearing is intact to finger rub, shoulder shrug is symmetric Motor exam: Strength testing is 5 out of 5 MRC scale strength in all 4 extremities. Deep tendon reflexes are 2+ and symmetric. Tone is normal throughout. Plantar reflexes flexor bilaterally Sensory exam: Sensations intact to light touch and pinprick sensation in all 4 extremities Cerebellar exam: Itcnuu-nj-aifm reveals no ataxia. Gait is normal Assessment/Plan The patient is a 23-year-old female with no past medical history who was admitted with abdominal pain and experienced episode loss of consciousness manifested as associated with standing from the toilet on 2 occasions. Possible etiologies include cerebral hypoperfusion and intracranial or extracranial cerebral artery stenosis, dysautonomia, or a cardiovascular etiology contributing to cerebral hypoperfusion. The patient's symptoms seem most consistent with vasovagal syncope potentially exacerbated by viral illness. I cannot completely exclude new onset seizure contributing to the patient's loss of consciousness given the provided history. Patient may have a component of medication side effects and dehydration contributing to orthostatic hypotension which contributed to his clinical episode. -I will consider further evaluation from a neurological standpoint including vascular evaluation and potentially EEG based upon patient's clinical course and cardiovascular evaluation. -I recommend monitoring the patient's blood pressure heart rate for signs of lability and dysautonomia particularly hypotension or bradycardia. -I recommend the patient be monitored on telemetry to assess for cardiac arrhythmia which may contribute to cerebral hypoperfusion -I recommend considering a cardiovascular evaluation based upon the results of the above evaluation -I recommend monitoring the patient's fluid intake while in the hospital and I counseled on adequate fluid intake as an outpatient. -I counseled the patient on possible diagnosis, prognosis, evaluation, treatment options. I answered all questions. The patient states understanding. -I discussed the assessment and treatment recommendations with the hospitalist 1. Syncope (R55: Syncope and collapse) 2. Postural orthostatic tachycardia syndrome [POTS] (G90.A: Postural orthostatic tachycardia syndrome [POTS]) 3. Orthostatic syncope (I95.1: Orthostatic hypotension) 4. Abdominal pain, acute (R10.9: Unspecified abdominal pain) 5. Hypotension (I95.9: Hypotension, unspecified) 6. Leukocytosis (D72.829: Elevated white blood cell count, unspecified) Problem List/Past Medical History Ongoing Abdominal discomfort, epigastric Belching BMI 34.0-34.9,adult Encounter for herb and vitamin supplement management Obesity due to excess calories Systolic murmur Historical No qualifying data Procedure/Surgical History None. Medications Inpatient ac (more content not included)...[facility] Result Comment: Electronically Signed By: Hayley Nicholas RN\.br\Date and Time Signed: 03/13/24 07:03 EST\.br\Electronically Co-Signed By: Anthony Flood MD\.br\Date and Time Co-Signed: 03/13/2409:18 EST\.br\Electronically Co- Signed By: Cristopher VILLAVICENCIO, Hayley [id number] NoteHistory and Physical Chief Complaint abd pain starting this am. pain to abd is around umbilicus. denies nausea or vomiting. states got lightheaded this am History of Present Illness 23-year-old female with past medical history of systolic murmur, presented to ER on 03/12 due to abdominal pain. Patient states pain started approximately 2 AM. Pain got worse throughout the night. Patient states she went to the bathroom and urinated and got up to wash her hands and became lightheaded and had syncopal episode. Patient denied hitting her head and did not lose consciousness. Patient states pain is mostly lower but can feel it everywhere. Patient states she was having mild fever and chills. Patient denies any nausea vomiting diarrhea, constipation, chest pain, or other symptoms at this time. Patient denies any history of tobacco, alcohol, drug abuse. Patient works at home. Patient denies any surgical history. Patient still has gallbladder, appendix, uterus, ovaries. Patient states she had similar episode of syncope back when she was in high school after going to the bathroom and urinating as well. Patient states she has family history of kidney stones but her herself has never had one. In ED patient was found to have leukocytosis of 16, CT A/P showed possible mild inflammation of ovary and ultrasound was suggested which was negative for torsion. Patient was orthostatic hypotensive.Patient was given IV fluids. Discussed CODE STATUS with patient would like to be full code. Review of Systems Scoring Mathews Fall Risk Score: 20 (03/12/24) Physical Exam Vitals & Measurements T: 37.1 ???C(Oral) HR: 89(Monitored) RR: 13 BP: 100/56 BP: 97/66(Sitting) BP: 89/47(Standing) SpO2:99% HT: 162 cm WT: 80 kg General: NAD Skin: Warm, dry Head: No trauma, normocephalic Neck: Trachea midline, supple, negative for JVD Eye: Conjunctive are clear, clear sclera , EOMI ENMT: oral mucosa moist, no lesions or edema nose or external ears Cardiovascular: Regular rate and rhythm, S1-S2 present, 2/6 systolic murmur Respiratory: Lungs clear to auscultation, bilateral symmetric movement, negative for wheezes rales or rhonchi Chest wall: no deformity. Gastrointestinal: Abdomen soft, bowel sounds present, mild diffuse TTP Back: No tenderness Extremities: Range of motion intact, no edema Neurological: awake, alert, speech normal, cranial nerves II through XII intact, no sensory defects, alert and oriented x3 Psychiatric: cooperative, affect appropriate for age, pleasant Lab Results WBC: 16.3 E9/L High (03/12/24 06:09:00) RBC: 4.4 E12/L (03/12/24 06:09:00) HGB: 13.7 gm/dL (03/12/24 06:09:00) Hct: 40.5 % (03/12/24 06:09:00) MCV: 92.9 fL (03/12/24 06:09:00) MCH: 31.4 pg (03/12/24 06:09:00) MCHC: 33.8 gm/dL (03/12/24 06:09:00) RDW: 12.5 % (03/12/24 06:09:00) Platelet: 245 E9/L (03/12/24 06:09:00) MPV: 7.6 fL (03/12/24 06:09:00) Neutro Auto: 82.9 % High (03/12/24 06:09:00) Lymph Auto: 10.6 % Low (03/12/24 06:09:00) Kingfisher Auto: 5.7 % (03/12/24 06:09:00) Eos Auto: 0.6 % (03/12/24 06:09:00) Basophil Auto: 0.2 % (03/12/24 06:09:00) Neutro Absolute: 13.5 E9/L High (03/12/24 06:09:00) Lymph Absolute: 1.7 E9/L (03/12/24 06:09:00) Kingfisher Absolute: 0.9 E9/L (03/12/24 06:09:00) Eos Absolute: 0.1 E9/L (03/12/24 06:09:00) Basophil Absolute: 0 E9/L (03/12/24 06:09:00) Glucose Lvl: 108 mg/dL (03/12/24 06:09:00) BUN: 11 mg/dL (03/12/24 06:09:00) Creatinine: 0.6 mg/dL (03/12/24 06:09:00) eGFR: 127 mL/min/1.73 m2 (03/12/24 06:09:00) BUN/Creat Ratio: 18 (03/12/24 06:09:00) Sodium Lvl: 138 mmol/L (03/12/24 06:09:00) Potassium Lvl: 3.9 mmol/L (03/12/24 06:09:00) Chloride: 106 mmol/L (03/12/24 06:09:00) CO2: 27 mmol/L (03/12/24 06:09:00) AGAP: 9 mEq/L (03/12/24 06:09:00) Calcium Lvl: 9 mg/dL (03/12/24 06:09:00) Alk Phos: 38 Int._Unit/L (03/12/24 06:09:00) ALT: 14 Int._Unit/L (03/12/24 06:09:00) AST: 16 Int._Unit/L (03/12/24 06:09:00) Total Protein: 6.9 gm/dL (03/12/24 06:09:00) Albumin Lvl: 4.1 gm/dL (03/12/24 06:09:00) Globulin: 2.8 gm/dL (03/12/24 06:09:00) A/G Ratio: 1.5 (03/12/24 06:09:00) Bili Total: 0.7 mg/dL (03/12/24 06:09:00) Bili Direct: 0.1 mg/dL (03/12/24 06:09:00) Bili Indirect: 0.6 mg/dL (03/12/24 06:09:00) Lipase Lvl: 19 unit/L (03/12/24 06:09:00) Troponin HS: <2.30 Low (03/12/24 06:09:00) UA Spec Desc: Clean Catch (03/12/24 06:09:00) UA Color: Yellow (03/12/24 06:09:00) UA Clarity: Clear (03/12/24 06:09:00) UA Spec Grav: 1.017 (03/12/24 06:09:00) UA pH: 8.5 (03/12/24 06:09:00) UA Protein: 1+ Abnormal (03/12/24 06:09:00) UA Glucose: Negat (03/12/24 06:09:00) UA Ketones: Negat (03/12/24 06:09:00) UA Bili: Negat (03/12/24 06:09:00) UA Blood: Negat (03/12/24 06:09:00) UA Nitrite: Negat (03/12/24 06:09:00) UA Urobilinogen: Negat (03/12/24 06:09:00) UA Leuk Est: Negat (03/12/24 06:09:00) UA RBC: 0-3 (03/12/24 06:09:00) UA Squam Epithelial: 3-4 (03/12/24 06:09:00) UA WBC: 0-5 (03/12/24 06:09:00) (more content not included)...[facility]Comment [facility] above:Result Comment: Electronically Signed By: Moses Smith DO\.br\Date and Time Signed: 03/12/24 12:09 ESTEvaluation noteNo assessment information available [facility] Work Phone: Evaluation note* Diagnosis Palpitations Pre-syncope Syncope and collapse [facility] Diagnosis Well woman exam with routine gynecological exam Routine gynecological examination Missed menses [facility] Narrative No data available for this section [facility] Progress note No data available for this section [facility] Chief Complaint and Reason for Visit Chief Complaint tsh complete Advance Directives Advance Directive Response Recorded Date/ Time Advance Directives No December 5:36pm Summary Purpose Family History No Family History Records FoundNo Family History Records FoundNo Family History Records FoundNo Family History Records FoundNo Family History Records FoundNo Family History Records FoundNo Family History Records FoundNo Family History Records FoundNo Family History Records FoundNo Family History Records FoundNo Family History Records FoundNo Family History Records FoundNo Family History Records Found No data available for this section No Family History Records FoundNo Family History Records FoundNo Family History Records FoundNo Family History Records FoundNo Family History Records FoundNo Family History Records Found Reason for Referral Specialty Diagnoses / Procedures Referred By Contac t Referred To Contact Cardiology Diagnoses Palpitations Pre-syncope Procedures Extended cardiac holter monitor (3 days-14 day) DC EXTERNAL ECG REC>48HR<7D REVIEW & INTERPRETATION DC EXTERNAL ECG REC>48HR<7D RECORDING DC EXTERNAL ECG REC>7D<15D RECORDING DC EXTERNAL ECG REC>7D<15D REVIEW & INTERPRETATION Jenna Ba DO [address] [place] [address] [facility] [address] [place] [address] Referral ID Status Reason Start Date Expiration Date Visits Re quested Visits Authorized [id number] Closed 06/04/2024 09/02/2024 1 1 Additional Source Comments Care Teams (unrecognized sec tion and content) Team Status: Inactive Member Role Status Dates Outreach Community Attending Provider Active PHYSICIAN NO FAMILY Primary Care Provider Active Team Status: Active Member Role Status Dates PHYSICIAN NO FAMILY Primary Care Provider Active Rheumatology Nurse Relationship Specialty Start Date End Date Jenna Ba DO [address] [place] [address] PCP - General Family Medicine 09/29/23 Rheumatology Nurse Relationship Specialty Start Date End Date Jenna Ba MD [address] [place] [address] PCP - General Digital Analyst 03/20/24 Rheumatology Nurse Relationship Specialty Start Date End Date Jenna Ba MD [address] [place] [address] PCP - General Digital Analyst 03/20/24 Rheumatology Nurse Relationship Specialty Start Date End Date Jenna Ba MD [address] [place] [address] PCP - General Digital Analyst 03/20/24 Goals (unrecognized section and content) Goals may be documented in a n alternate section No data available for this section INFORMATION SOURCE (unrecogn ized section and content) DATE CREATED AUTHOR 03/14/2022 [facility] DATE CREATED AUTHOR AUTHOR'S ORGANIZ ATION 07/23/2022 [facility] DATE CREATED AUTHOR AUTHOR'S ORGANIZ ATION 08/26/2023 [facility] DATE CREATED AUTHOR AUTHOR'S ORGANIZ ATION 03/12/2024 [facility] DATE CREATED AUTHOR AUTHOR'S ORGANIZ ATION 03/14/2024 [facility] DATE CREATED AUTHOR AUTHOR'S ORGANIZ ATION 03/16/2024 [facility] DATE CREATED AUTHOR AUTHOR'S ORGANIZ ATION 06/08/2024 [facility] Reason for Visit (unrecogniz ed section and content) Specialty Diagnoses / Procedures Referred By Loren foss Referred To Contact Cardiology Diagnoses Palpitations Pre-syncope Procedures Extended cardiac holter monitor (3 days-14 day) DC EXTERNAL ECG REC>48HR<7D REVIEW & INTERPRETATION DC EXTERNAL ECG REC>48HR<7D RECORDING DC EXTERNAL ECG REC>7D<15D RECORDING DC EXTERNAL ECG REC>7D<15D REVIEW & INTERPRETATION Jenna Ba DO [address] [place] [address] [facility] [address] [place] [id number] Referral ID Status Reason Start Date Expiration Date Visits Re quested Visits Authorized [id number] Closed 06/04/2024 09/02/2024 1 1 Reason Comments Well Women Visit FOR RECORDS PERTAINING TO PATIENTS WHO ARE OR HAVE BEEN ENROLLED IN A CHEMICAL DEPENDENCY/SUBSTANCEABUSE PROGRAM, SOME INFORMATION MAY BE OMITTED. This clinical summary was aggregated from multiple sources. Caution should be exercised in using it in the provision of clinical care. This summary normalizes information from multiple sources, and as a consequence, information in this document may materially change the coding, format and clinical context of patient data. In addition, data may be omitted in some cases. CLINICAL DECISIONS SHOULD BE BASED ON THE PRIMARY CLINICAL RECORDS. [facility] provides no warranty or guarantee of the accuracy or completeness of information in this document.
== END 2024-08-28 19:20 | disposition home or self-care (01) ==
LOC: LAB 19:19
PROVIDERS: PCP Family Medicine; Visit Provider Physician Assistant
DX: Z01.419 Encounter for gynecological examination (general) (routine) without abnormal findings (principal); N92.6 Irregular menstruation, unspecified
CPT/HCPCS: 36415; 84702; 88175

== ENCOUNTER 2024-08-30 14:07 | Outpatient (RCR) | payer OTHER, SELFPAY ==
[2024-08-30 15:05] LABS: HCG Quantitative 1283 mIU/mL
[2024-09-01 13:35] LABS: HCG Quantitative 3122 mIU/mL
== END 2024-09-10 10:57 | disposition home or self-care (01) ==
LOC: LAB 14:07
PROVIDERS: PCP Family Medicine; Visit Provider Obstetrics & Gynecology
DX: Z32.01 Encounter for pregnancy test, result positive (principal); N92.6 Irregular menstruation, unspecified
CPT/HCPCS: 36415; 84702

== ENCOUNTER 2024-09-14 10:00 | Outpatient (OUT) | payer OTHER, SELFPAY ==
--- NOTE | 2024-09-14 10:02 | US_ITS ---
The [address] [address] Patient Name: TYRELL WU MRN: [id number] date: 2000 Sex: F Assigned Patient Location: US Current Patient Location: US Accession/Order Number: [id number] Exam Date: 09/14/2024 11:08 Report Date: 09/14/2024 11:11 At the request of: QUINN VASQUEZ DO Procedure: US OB transvaginal ULTRASOUND OB TRANSVAGINAL COMPARISON: None CLINICAL DATA: Missed menses. Assessment of the pelvis was performed utilizing a transvaginal approach. There is a gestational sac within the uterus. A yolk sac and pole are visualized. The crown-rump length measurement of 8.6 mm correlates with an ultrasound age of 6 weeks 6 days. The estimated date of delivery is May 04, 2025 . There is cardiac activity with heart rate of 159 bpm. The cervix is closed and estimated at 3.3 cm in length. Both ovaries are visualized. The right measures 3.3 x 2.9 x 2.1 cm . The left ovary measures 3.5 x 2.8 x 3.2 cm. No adnexal cysts are present. There appears to be a small amount of free fluid at posterior cul-de-sac. US/US OB transvaginal IMPRESSION: SINGLE LIVE INTRAUTERINE GESTATION WITH ULTRASOUND AGE OF 6 WEEKS 6 DAYS Impression dictated by: Анна Sherwood M.D. 09/14/2024 11:11 AM Dictation Location: [place] [address] Electronically authenticated by: [id number] Y Date: 09/14/2024 11:11
== END 2024-09-14 10:01 | disposition home or self-care (01) ==
LOC: US 10:00
PROVIDERS: PCP Family Medicine; Visit Provider Obstetrics & Gynecology
DX: Z32.01 Encounter for pregnancy test, result positive (principal); Z3A.01 Less than 8 weeks gestation of pregnancy; N92.6 Irregular menstruation, unspecified
CPT/HCPCS: 76817

== ENCOUNTER 2024-10-08 16:06 | Outpatient (OUT) | payer OTHER, SELFPAY ==
[2024-10-08 16:42] LABS: Basophils Absolute Auto 0.1 10^3/uL (0.0-0.1); Basophils Percent Auto 0.5 % (0.2-2.0); Eosinophils Absolute Auto 0.2 10^3/uL (0.0-0.7); Eosinophils Percent Auto 1.3 % (0.9-7.0); Hematocrit 38.6 % (36.0-48.0); Hemoglobin 12.9 g/dL (12.0-16.0); Immature Granulocytes Abs Auto 0.03 10^3/uL (0.00-0.03); Immature Granulocytes Pct Auto 0.2 % (0.0-0.5); Lymphocytes Absolute Auto 2.9 10^3/uL (1.2-3.8); Lymphocytes Percent Auto 23.1 % (20.5-60.0); Mean Corpuscular HGB Conc 33.4 g/dL (29.9-35.2); Mean Corpuscular Hemoglobin 31.4 pg (26.7-34.0); Mean Corpuscular Volume 93.9 fL (81.0-99.0); Mean Platelet Volume 9.9 fL (9.5-13.5); Monocytes Absolute Auto 0.8 10^3/uL (0.3-0.8); Monocytes Percent Auto 6.5 % (1.7-12.0); Neutrophils Absolute Auto 8.7 10^3/uL (1.4-6.5); Neutrophils Percent Auto 68.4 % (43.0-75.0); Platelet Count 223 10^3/uL (150-450); Red Blood Count 4.11 10^6/uL (4.20-5.40); Red Cell Distribution Width 11.9 % (11.0-15.0); White Blood Count 12.7 10^3/uL (4.0-11.0)
[2024-10-08 17:03] LABS: Estimated Average Glucose 91 mg/dL; Glycohemoglobin A1C 4.8 % (4.5-6.2)
[2024-10-08 17:17] LABS: Amphetamine Screen Urine NEGATIVE (NEGATIVE); Barbiturates Screen Urine NEGATIVE (NEGATIVE); Benzodiazepines Screen Urine NEGATIVE (NEGATIVE); Buprenorphine Screen Urine NEGATIVE (NEGATIVE); Cannabinoid Screen Urine NEGATIVE (NEGATIVE); Cocaine Screen Urine NEGATIVE (NEGATIVE); Methadone Screen Urine NEGATIVE (NEGATIVE); Methamphetamines Screen Urine NEGATIVE (NEGATIVE); Opiate Screen Urine NEGATIVE (NEGATIVE); Oxycodone Screen Urine NEGATIVE (NEGATIVE); Phencyclidine Screen Urine NEGATIVE (NEGATIVE); Tricyclic Antidepressant Urine NEGATIVE (NEGATIVE)
[2024-10-10 05:07] LABS: HIV Ab/p24 Ag Screen Non Reactive (Non Reactive)
[2024-10-10 06:07] LABS: HBsAg Screen Negative (Negative); HCV Ab Non Reactive (Non Reactive)
[2024-10-10 07:08] LABS: Rubella Antibodies, IgG 6.87 index (Immune >0.99)
[2024-10-10 13:08] LABS: Rapid Plasma Reagin, Quant Non Reactive titer (NonRea<1:1)
== END 2024-10-08 16:07 | disposition home or self-care (01) ==
LOC: LAB 16:07
PROVIDERS: PCP Family Medicine; Visit Provider Obstetrics & Gynecology
DX: Z34.01 Encounter for supervision of normal first pregnancy, first trimester (principal); N92.6 Irregular menstruation, unspecified
CPT/HCPCS: 36415; 80307; 83036; 85025; 86592; 86762; 86803; 86850; 86900; 86901; 87086; 87340; 87389

== ENCOUNTER 2025-01-09 09:53 | Observation (INO) | payer OTHER, SELFPAY ==
--- OUTSIDE RECORDS SUMMARY | 2024-12-17 08:54 | XMS_ITS ---
Author Name Auto Generated Organization OHIP Care Team Providers Care Radial Router Operator Name Role Phone Moses Smith Attending Unavailable Betancor, Benjamin Consulting Unavailable Kai Mcrae Admitting Unavailable Betancor, Benjamin Consulting Unavailable Betancor, Benjamin Consulting Unavailable [place], Danielito Consulting Unavailable [place], Danielito Consulting Unavailable [place], Danielito Consulting Unavailable [place], Danielito Consulting Unavailable [place], Danielito Consulting Unavailable [place], Danielito Consulting Unavailable [place], Danielito Consulting Unavailable [place], Danielito Consulting Unavailable [place], Danielito Consulting Unavailable [facility] XXXX Consulting Unavailable Moses Smith Attending Unavailable Betancor, Benjamin Consulting Unavailable OfungwKai valles Admitting Unavailable Betancor, Benjamin Consulting Unavailable Betancor, Benjamin Consulting Unavailable [place], Danielito Consulting Unavailable [place], Danielito Consulting Unavailable [place], Danielito Consulting Unavailable [place], Danielito Consulting Unavailable [place], Danielito Consulting Unavailable [place], Danielito Consulting Unavailable [place], Danielito Consulting Unavailable [place], Danielito Consulting Unavailable [place], Danielito Consulting Unavailable [facility], XXXX Consulting Unavailable Tuan Lovell Attending Unavailable Moses Smith Attending Unavailable OfungwuKai Admitting Unavailable [place], Danielito Consulting Unavailable [place], Danielito Consulting Unavailable [place], Danielito Consulting Unavailable [place], Danielito Consulting Unavailable [place], Danielito Consulting Unavailable [place], Danielito Consulting Unavailable [place], Danielito Consulting Unavailable [place], Danielito Consulting Unavailable [place], Danielito Consulting Unavailable [facility], XXXX Consulting Unavailable EMERY BA Attending Unavailable EMERY BA Referring Unavailable EMERY BA Primary Care Unavailable TOÑA, MARY Attending Unavailable TOÑA, MARY Referring Unavailable QUINN VASQUEZ Attending Unavailable TOÑA, MARY Attending Unavailable TOÑA, MARY Attending Unavailable WALTER PURCELL Attending Unavailable PROBLEMS DATE TYPE CONDITION / CODE ATTENDING STATUS [facility] 06/04/2024 Principle diagnosis Palpitations / R00.2(ICD-10) EMERY BA [facility] 06/04/2024 Principle diagnosis Syncope and collapse / R55(ICD-10) EMERY BA [facility] PROCEDURES No Procedure Records Found RESULTS US OB 14+ WEEKS ANATOMY SCAN Observed: 12/17/2024 7:58 AM Status: F Source: [facility] EP[facility] Order Comment: US OB ANATOMY SINGLE W US OB CERVICAL LENGTH Estimated Date of Delivery: 05/04/25 Gestational Age as of 11/13/2024: 15w3d FINDINGS: A single, live intrauterine is present with normal cardiac rate of 144 beats per minute. Normal activity and amniotic fluid volume. Morphology is grossly normal. The placenta is anterior, inferior aspect 4.7 cm from the closed internal cervical os, 4.1 cm length (small amount of endocervical fluid, no significant funneling of the internal cervical os. The current sonographic age is weeks and days, based on the following measurements: BPD 4.5 cm (19 weeks, 4 days) Head Circumference 17.3 cm (19 weeks, 6 days) Abdominal Circumference 15.8 cm (20 weeks, 6 days) Femur Length 3.5 cm (20 weeks, 6 days) Presentation Breech Placenta Anterior Weight (g) by Percentile 71.8 % * These measurements result in an estimated date of delivery of The current estimated weight is 375 grams (0 pounds, 13 ounces). IMPRESSION: 1. Single, live intrauterine , current sonographic age of 20 weeks and 2 days, with an estimated date of delivery of May 04, 2025. 2. 4.1 cm cervical length with a small amount of endocervical fluid * Estimated Weight (g) by Percentile is based upon an accurate estimated age based on last menstrual period. TRANSCRIBED BY: ELECTRONICALLY SIGNED BY: Live Hernandez MD US OB TRANSVAGINAL Observed: 08/30/2024 1:21 PM Status: F Source: [facility] EP[facility] Order Comment: US OB TRANSVA GINAL No LMP recorded (within months). EXAM: US OB TRANSVAGINAL HISTORY: Dating. COMPARISON: None available. TECHNIQUE: Two-dimensional transvaginal grayscale ultrasound imaging of the pelvis was performed. Color flow Doppler imaging of the ovaries was also performed. FINDINGS: UTERUS The uterus is anteverted in position and demonstrates a normal, homogeneous echotexture. The cervix measures 3.2 cm in length. ENDOMETRIUM 1.7 cm The endometrium demonstrates a normal, homogeneous echotexture. RIGHT OVARY 3.5 x 2.4 x 3.4 cm The right ovary demonstrates a normal echotexture. There is normal color Doppler flow. LEFT OVARY 3.5 x 2.7 x 3.1 cm The left ovary demonstrates a normal echotexture. There is normal color Doppler flow. Mild fluid is present within the cul-de-sac. No evidence of an intrauterine or extrauterine identified. IMPRESSION: 1. No evidence of an intrauterine or extrauterine . Continue serial beta HCG measurements and a follow-up ultrasound is recommended. 2. Normal color Doppler flow within the bilateral ovaries. 3. Mild fluid within the cul-de-sac. Interpreted by: Electronically signed by CARLO CERRATO II, MD, PHD at 31-Aug-2024 12:18:24 PM [facility] HCG QUANT Collected: 4 10:31 AM Status: F Source: [facility] TYPE CODE TESTS RESULT OUT OF RANGE REFERENCE UNITS LAB HCGQ HCG Quant <0.1 mIU/mL Result Comment: Gestational Age Expected HCG values (mIU/ml) 3 weeks 5-72 4 weeks 10-708 5 weeks 217-8,245 6 weeks 152-32,177 8 weeks 31,366-149,094 12 weeks 27,107-201,615 16 weeks 8,904-55,332 18 weeks 9,649-55,271 Performed By: #### HCGQ #### [facility] [address] [place] [address] DISCHARGE NOTE-NURSING Observed: 024 1:07 PM Status: F Source: [facility] Discharge Note-Nursing TYRELL WU :2000 Visit Date:03/12/2024 Inpatient Discharge Instructions Your Care Team Admitting Physician - Thor RIZVI, Kai Lagos Consulting Physician - Remigio RIZVI, Danielito Flores MD, Benjamin [facility] [place], XXXX Reason for Your Visit abdomenal [...] with a neurologist as well as a paper sample clerk. 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 Where: [facility] [address] [place] [address]- Follow Up with Emery BA When: 03/15/2024 09:45 AM EST Where: [address] [facility] [place] [address]- [phone] Business (1) Follow Up with Mark RIZVI, [...] (03/13/24 06:16:00) Calcium Lvl: 8.3 mg/dL Low (03/13/24 06:16:00) Allergies No Known Allergies Problems Ongoing [...] are associated with POTS. Treatment may involve: ??? Treating any conditions or diseases that are associated with POTS. ??? Drinking two glasses of water before getting up from a lying position. ??? Increasing salt (sodium) in your diet. ??? Taking medicine to control blood pressure and heart rate (beta-danette). ??? Avoiding certain medicines. ??? Starting an exercise program under the supervision of a health care provider. Follow these instructions at home: Medicines ??? Take xbea-avb-gugriax and prescription medicines only as told by your health care provider. ??? Let your health care provider know about all prescription or bbja-uel-ryzwfye medicines you take. These include herbs, vitamins, and supplements. You may need to stop or adjust some medicines if they cause this condition. ??? Talk with your health care provider before starting any new medicines. Eating and drinking ??? Drink enough fluid to keep your urine pale yellow. ??? If told by your health care provider, drink two glasses of water before getting up from a lying position. ??? Follow instructions from your health care provider about how much sodium you should include in your diet. ??? Avoid heavy meals. Eat several small meals a day instead of a few large meals. General instructions ??? Do an aerobic exercise for 20 minutes a day, at least 3 days a week. Aerobic exercises are those that cause your heart to beat faster. ??? Ask your health care provider what kinds of exercise are safe for you. ??? Do not use any products that contain nicotine or tobacco. These products include cigarettes, chewing tobacco, and vaping devices, such as e-cigarettes. These can interfere with blood flow. If you need help quitting, ask your health care provider. ??? Keep all follow-up visits. This is important. Contact a health care provider if: ??? Your symptoms do not improve after treatment. ??? Your symptoms get worse. ??? You develop new symptoms. Get help right away if: ??? You have chest pain. ??? You have difficulty breathing. ??? You have fainting episodes. These symptoms may be an emergency. Get help right away. Call 911. ??? Do not wait to see if the symptoms will go away. ??? Do not drive yourself to the hospital. Summary ??? POTS is a group of symptoms that occur along with an increase in heart rate when a person stands up after lying down. The most common symptom is light-headedness when you stand up. ??? Treatment for this condition includes treating any underlying conditions, drinking plenty of water, stopping or changing some medicines, or starting an exercise program. ??? Get help right away if you have chest pain, difficulty breathing, or fainting episodes. These symptoms may be an emergency. This information is not intended to replace advice given to you by your health care provider. Make sure you discuss any questions you have with your health care provider. Document Revised: 10/08/2021 Document Reviewed: 10/08/2021 [employer] Patient Education ??? 2023 [employer] Orthostatic Hypotension Blood pressure is a measurement [...] or to the rest of your organs. Orthostatic hypotension can cause light-headedness, sweating, rapid heartbeat, blurred vision, and fainting. These symptoms require further investigation into the cause. What are the causes? Orthostatic hypotension can be caused by many things, including: ??? Sudden changes in posture, such as standing up quickly after you have been sitting or lying down. ??? Loss of blood (anemia) or loss of body fluids (dehydration). ??? Heart problems, neurologic problems, or hormone problems. ??? . ??? Aging. The risk for this condition increases as you get older. ??? Severe infection (sepsis). ??? Certain medicines, such as medicines for high blood pressure or medicines that make the body lose excess fluids (diuretics). What are the signs or symptoms? Symptoms of this condition may include: ??? Weakness, light-headedness, or dizziness. ??? Sweating. ??? Blurred vision. ??? Tiredness (fatigue). ??? Rapid heartbeat. ??? Fainting, in severe cases. How is this diagnosed? This condition is diagnosed based on: ??? Your symptoms and medical history. ??? Your blood pressure measurements. Your health care provider will check your blood pressure when you are: ? Lying down. ? Sitting. ? Standing. A blood pressure reading is recorded as [...] be used to diagnose orthostatic hypotension include: ??? Your other vital signs, such as your heart rate and temperature. ??? Blood tests. ??? An electrocardiogram (ECG) or echocardiogram. ??? A Holter monitor. This is a device you wear that records your heart rhythm continuously, usually for 24???48 hours. ??? Tilt table test. For this test, you will be safely secured to a table that moves you from a lying position to an upright position. Your heart rhythm and blood pressure will be monitored during the test. How is this treated? This condition may be treated by: ??? Changing your diet. This may involve eating more salt (sodium) or drinking more water. ??? Changing the dosage of certain medicines you are taking that might be lowering your blood pressure. ??? Correcting the underlying reason for the orthostatic hypotension. ??? Wearing compression stockings. ??? Taking medicines to raise your blood pressure. ??? Avoiding actions that trigger symptoms. Follow these instructions at home: Medicines Take riwo-hew-hhpkhki and prescription medicines only as told by your health care provider. ??? Follow instructions from your health care provider about changing the dosage of your current medicines, if this applies. ??? Do not stop or adjust any of your medicines on your own. Eating and drinking ??? Drink enough fluid to keep your urine pale yellow. ??? Eat extra salt only as directed. Do not add extra salt to your diet unless advised by your health care provider. ??? Eat frequent, small meals. ??? Avoid standing up suddenly after eating. General instructions ??? Get up slowly from lying down or sitting positions. This gives your blood pressure a chance to adjust. ??? Avoid hot showers and excessive heat as directed by your health care provider. ??? Engage in regular physical activity as directed by your health care provider. ??? If you have compression stockings, wear them as told. ??? Keep all follow-up visits. This is important. Contact a health care provider if: ??? You have a fever for more than 2???3 days. ??? You feel more thirsty than usual. ??? You feel dizzy or weak. Get help right away if: ??? You have chest pain. ??? You have a fast or irregular heartbeat. ??? You become sweaty or feel light-headed. ??? You feel short of breath. ??? You faint. ??? You have any symptoms of a stroke. BE FAST is an easy way to remember the main warning signs of a stroke: ? B - Balance. Signs are dizziness, sudden trouble walking, or loss of balance. ? E - Eyes. Signs are trouble seeing or a sudden change in vision. ? F - Face. Signs are sudden weakness or numbness of the face, or the face or eyelid drooping on one side. ? A - Arms. Signs are weakness or numbness in an arm. This happens suddenly and usually on one side of the body. ? S - Speech. Signs are sudden trouble speaking, slurred speech, or trouble understanding what people say. ? T - Time. Time to call emergency services. Write down what time symptoms started. ??? You have other signs of a stroke, such as: ? A sudden, severe headache with no known cause. ? Nausea or vomiting. ? Seizure. These symptoms may represent a serious problem that is an emergency. Do not wait to see if the symptoms will go away. Get medical help right away. Call your local emergency services (911 in the [place] Do not drive yourself to the hospital. Summary ??? Orthostatic hypotension is a sudden drop in blood pressure. ??? It can cause light-headedness, sweating, rapid heartbeat, blurred vision, and fainting. ??? Orthostatic hypotension can be diagnosed by having your blood pressure taken while lying down, sitting, and then standing. ??? Treatment may involve changing your diet, wearing compression stockings, sitting up slowly, adjusting your medicines, or correcting the underlying reason for the orthostatic hypotension. ??? Get help right away if you have chest pain, a fast or irregular heartbeat, or symptoms of a stroke. This information is not intended to replace advice given to you by your health care provider. Make sure you discuss any questions you have with your health care provider. Document Revised: 06/11/2021 Document Reviewed: 06/11/2021 [employer] Patient Education ??? 2023 [employer]. Near-Syncope Near-syncope is when you suddenly feel like you might pass out or faint. This may also be called presyncope. During an episode of near-syncope, you may: ??? Feel dizzy, weak, or light-headed. It may feel like the room is spinning. ??? Feel like you may vomit (nauseous). ??? See spots or see all white or all black. ??? Have cold, clammy skin. ??? Feel warm and sweaty. ??? Hear ringing in your ears. This condition is caused by a sudden decrease in blood flow to the brain. This can result from many causes, but most of those causes are not dangerous. However, near-syncope may be a sign of a serious medical problem, so it is important to seek medical care. Follow these instructions at home: Medicines ??? Take svgq-pkf-wtrixxf and prescription medicines only as told by your doctor. ??? If you are taking blood pressure or heart medicine, get up slowly and spend many minutes getting ready to sit and then stand. This can help with dizziness. Lifestyle ??? Do not drive, use machinery, or play sports until your doctor says it is okay. ??? Do not drink alcohol. ??? Do not smoke or use any products that contain nicotine or tobacco. If you need help quitting, ask your doctor. ??? Avoid hot tubs and saunas. General instructions ??? Be aware of any changes in your symptoms. ??? Talk with your doctor about your symptoms. You may need to have testing to help find the cause. ??? If you start to feel like you might pass out, sit or lie down right away. If sitting, lower your head down between your legs. If lying down, raise (elevate) your feet above the level of your heart. ? Breathe deeply and steadily. Wait until all of the symptoms are gone. ? Have someone stay with you until you feel better. ??? Drink enough fluid to keep your pee (urine) pale yellow. ??? Avoid standing for a long time. If you must stand for a long time, do movements such as: ? Moving your legs. ? Crossing your legs. ? Flexing and stretching your leg muscles. ? Squatting. ??? Keep all follow-up visits. Contact a doctor if: ??? You continue to have episodes of near fainting. Get help right away if: ??? You pass out or faint. ??? You have any of these symptoms: ? Fast or uneven heartbeats (palpitations). ? Pain in your chest, belly, or back. ? Shortness of breath. ??? You have a seizure. ??? You have a very bad headache. ??? You are confused. ??? You have trouble seeing. ??? You are very weak. ??? You have trouble walking. ??? You are bleeding from your mouth or butt. ??? You have black or tarry poop (stool). These symptoms may be an emergency. Get help right away. Call your local emergency services (911 in the [place] ??? Do not wait to see if the symptoms will go away. ??? Do not drive yourself to the hospital. Summary ??? Near-syncope is when you suddenly feel like you might pass out or faint. ??? This condition is caused by a sudden decrease in blood flow to the brain. ??? Near-syncope may be a sign of a serious medical problem, so it is important to seek medical care. ??? If you start to feel like you might pass out, sit or lie down right away. If sitting, lower your head down between your legs. If lying down, raise (elevate) your feet above the level of your heart. ??? Talk with your doctor about your symptoms. You may need to have testing to help find the cause. This information is not intended to replace advice given to you by your health care provider. Make sure you discuss any questions you have with your health care provider. Document Revised: 08/06/2021 Document Reviewed: 08/06/2021 [employer] Patient Education ??? 2023 [employer]. Common Emergency Awareness Tips IS IT A STROKE? Act FAST and Check for these signs: FACE Does the face look uneven? ARM Does one arm drift down? SPEECH Does their speech sound strange? TIME Call at any sign of stroke Heart Attack Signs Chest discomfort: Most heart attacks involve discomfort in the center of the chest and lasts more than a few minutes, or goes away and comes back. It can feel like uncomfortable pressure, squeezing, fullness or pain. Discomfort in upper body: Symptoms can include pain or discomfort in one or both arms, back, neck, jaw or stomach. Shortness of breath: With or without discomfort. Other signs: Breaking out in a cold sweat, nausea, or lightheaded. Remember, MINUTES DO MATTER. If you experience any of these heart attack warning signs, call to get immediate medical attention! Patient Survey You may receive a survey in the mail asking you about your stay with us. We want to hear from you, please share your experience with us by completing your survey. Thank you for choosing [facility]. Radha Award Nomination The RADHA (Diseases Attacking the Immune SYstem) Award is an international recognition program that honors and celebrates the skillful, compassionate care nurses provide every day. Anyone who experiences or observes amazing care being provided by a nurse is encouraged to submit a nomination. To nominate your nurse, use your smart phone to scan the QR code below. Patient Portal You may access all of your results and other medical record information on our secure patient portal. If you are not signed up for this yet, please contact Health Information Management at [phone] to get signed up today. Patient Name: TYRELL WU I have received this information and my questions have been answered. Patient/Bodywork Therapist Name: Patient/Bodywork Therapist Signature: Relationship to Patient: Witness Name/Signature: Date: INPATIENT PATIENT SUMMARY Observed: 06/2023 12:34 PM Status: C Source: [facility] Inpatient Patient Summary [place] [id number] Patient Discharge Instructions PERSON INFORMATION Name: TYRELL WU Date of : 2000 Current Date: 03/13/2024 12:34:22 PHYSICIANS Admitting Physician: Thor RIZVI, Kai Lagos Primary Care Physician: Emery BA DO PCP Phone Number: [phone] Comment: Discharge Diagnosis: 1:Syncope; 2:Postural orthostatic tachycardia syndrome [POTS]; 3:Orthostatic syncope; 4:Abdominal pain, acute; 5:Hypotension; 6:Leukocytosis Condition at Discharge: Improved TYRELL WU has been given the following list of [...] with a neurologist as well as a paper sample clerk. Primary Care Physician to provide the following pending test results: None Follow up: With: Address: When: Emery BA [address] [facility] [place] [phone] [facility] (1) 03/15/2024 9:45 AM With: Address: When: Remigio RIZVI, KYLAH Esteves [place] [address] [place] [address] 03/28/2024 1:40 PM Comments: Will being Hue [...] M, have received the attached patient education materials/instructions and have verbalized understanding: Patient Signature Date [...] are associated with POTS. Treatment may involve: ??? Treating any conditions or diseases that are associated with POTS. ??? Drinking two glasses of water before getting up from a lying position. ??? Increasing salt (sodium) in your diet. ??? Taking medicine to control blood pressure and heart rate (beta-danette). ??? Avoiding certain medicines. ??? Starting an exercise program under the supervision of a health care provider. Follow these instructions at home: Medicines ??? Take htdu-guw-pozphbb and prescription medicines only as told by your health care provider. ??? Let your health care provider know about all prescription or texh-guz-wcroxnz medicines you take. These include herbs, vitamins, and supplements. You may need to stop or adjust some medicines if they cause this condition. ??? Talk with your health care provider before starting any new medicines. Eating and drinking ??? Drink enough fluid to keep your urine pale yellow. ??? If told by your health care provider, drink two glasses of water before getting up from a lying position. ??? Follow instructions from your health care provider about how much sodium you should include in your diet. ??? Avoid heavy meals. Eat several small meals a day instead of a few large meals. General instructions ??? Do an aerobic exercise for 20 minutes a day, at least 3 days a week. Aerobic exercises are those that cause your heart to beat faster. ??? Ask your health care provider what kinds of exercise are safe for you. ??? Do not use any products that contain nicotine or tobacco. These products include cigarettes, chewing tobacco, and vaping devices, such as e-cigarettes. These can interfere with blood flow. If you need help quitting, ask your health care provider. ??? Keep all follow-up visits. This is important. Contact a health care provider if: ??? Your symptoms do not improve after treatment. ??? Your symptoms get worse. ??? You develop new symptoms. Get help right away if: ??? You have chest pain. ??? You have difficulty breathing. ??? You have fainting episodes. These symptoms may be an emergency. Get help right away. Call 911. ??? Do not wait to see if the symptoms will go away. ??? Do not drive yourself to the hospital. Summary ??? POTS is a group of symptoms that occur along with an increase in heart rate when a person stands up after lying down. The most common symptom is light-headedness when you stand up. ??? Treatment for this condition includes treating any underlying conditions, drinking plenty of water, stopping or changing some medicines, or starting an exercise program. ??? Get help right away if you have chest pain, difficulty breathing, or fainting episodes. These symptoms may be an emergency. This information is not intended to replace advice given to you by your health care provider. Make sure you discuss any questions you have with your health care provider. Document Revised: 10/08/2021 Document Reviewed: 10/08/2021 [employer] Patient Education ? 2023 [employer] Orthostatic Hypotension Blood pressure is a measurement [...] or to the rest of your organs. Orthostatic hypotension can cause light-headedness, sweating, rapid heartbeat, blurred vision, and fainting. These symptoms require further investigation into the cause. What are the causes? Orthostatic hypotension can be caused by many things, including: ??? Sudden changes in posture, such as standing up quickly after you have been sitting or lying down. ??? Loss of blood (anemia) or loss of body fluids (dehydration). ??? Heart problems, neurologic problems, or hormone problems. ??? . ??? Aging. The risk for this condition increases as you get older. ??? Severe infection (sepsis). ??? Certain medicines, such as medicines for high blood pressure or medicines that make the body lose excess fluids (diuretics). What are the signs or symptoms? Symptoms of this condition may include: ??? Weakness, light-headedness, or dizziness. ??? Sweating. ??? Blurred vision. ??? Tiredness (fatigue). ??? Rapid heartbeat. ??? Fainting, in severe cases. How is this diagnosed? This condition is diagnosed based on: ??? Your symptoms and medical history. ??? Your blood pressure measurements. Your health care provider will check your blood pressure when you are: ? Lying down. ? Sitting. ? Standing. A blood pressure reading is recorded as [...] be used to diagnose orthostatic hypotension include: ??? Your other vital signs, such as your heart rate and temperature. ??? Blood tests. ??? An electrocardiogram (ECG) or echocardiogram. ??? A Holter monitor. This is a device you wear that records your heart rhythm continuously, usually for 24?48 hours. ??? Tilt table test. For this test, you will be safely secured to a table that moves you from a lying position to an upright position. Your heart rhythm and blood pressure will be monitored during the test. How is this treated? This condition may be treated by: ??? Changing your diet. This may involve eating more salt (sodium) or drinking more water. ??? Changing the dosage of certain medicines you are taking that might be lowering your blood pressure. ??? Correcting the underlying reason for the orthostatic hypotension. ??? Wearing compression stockings. ??? Taking medicines to raise your blood pressure. ??? Avoiding actions that trigger symptoms. Follow these instructions at home: Medicines Take hjqi-xja-zhorftu and prescription medicines only as told by your health care provider. ??? Follow instructions from your health care provider about changing the dosage of your current medicines, if this applies. ??? Do not stop or adjust any of your medicines on your own. Eating and drinking ??? Drink enough fluid to keep your urine pale yellow. ??? Eat extra salt only as directed. Do not add extra salt to your diet unless advised by your health care provider. ??? Eat frequent, small meals. ??? Avoid standing up suddenly after eating. General instructions ??? Get up slowly from lying down or sitting positions. This gives your blood pressure a chance to adjust. ??? Avoid hot showers and excessive heat as directed by your health care provider. ??? Engage in regular physical activity as directed by your health care provider. ??? If you have compression stockings, wear them as told. ??? Keep all follow-up visits. This is important. Contact a health care provider if: ??? You have a fever for more than 2?3 days. ??? You feel more thirsty than usual. ??? You feel dizzy or weak. Get help right away if: ??? You have chest pain. ??? You have a fast or irregular heartbeat. ??? You become sweaty or feel light-headed. ??? You feel short of breath. ??? You faint. ??? You have any symptoms of a stroke. BE FAST is an easy way to remember the main warning signs of a stroke: ? B - Balance. Signs are dizziness, sudden trouble walking, or loss of balance. ? E - Eyes. Signs are trouble seeing or a sudden change in vision. ? F - Face. Signs are sudden weakness or numbness of the face, or the face or eyelid drooping on one side. ? A - Arms. Signs are weakness or numbness in an arm. This happens suddenly and usually on one side of the body. ? S - Speech. Signs are sudden trouble speaking, slurred speech, or trouble understanding what people say. ? T - Time. Time to call emergency services. Write down what time symptoms started. ??? You have other signs of a stroke, such as: ? A sudden, severe headache with no known cause. ? Nausea or vomiting. ? Seizure. These symptoms may represent a serious problem that is an emergency. Do not wait to see if the symptoms will go away. Get medical help right away. Call your local emergency services (911 in the [place] Do not drive yourself to the hospital. Summary ??? Orthostatic hypotension is a sudden drop in blood pressure. ??? It can cause light-headedness, sweating, rapid heartbeat, blurred vision, and fainting. ??? Orthostatic hypotension can be diagnosed by having your blood pressure taken while lying down, sitting, and then standing. ??? Treatment may involve changing your diet, wearing compression stockings, sitting up slowly, adjusting your medicines, or correcting the underlying reason for the orthostatic hypotension. ??? Get help right away if you have chest pain, a fast or irregular heartbeat, or symptoms of a stroke. This information is not intended to replace advice given to you by your health care provider. Make sure you discuss any questions you have with your health care provider. Document Revised: 06/11/2021 Document Reviewed: 06/11/2021 [employer] Patient Education ? 2023 [employer] Near-Syncope Near-syncope is when you suddenly feel like you might pass out or faint. This may also be called presyncope. During an episode of near-syncope, you may: ??? Feel dizzy, weak, or light-headed. It may feel like the room is spinning. ??? Feel like you may vomit (nauseous). ??? See spots or see all white or all black. ??? Have cold, clammy skin. ??? Feel warm and sweaty. ??? Hear ringing in your ears. This condition is caused by a sudden decrease in blood flow to the brain. This can result from many causes, but most of those causes are not dangerous. However, near-syncope may be a sign of a serious medical problem, so it is important to seek medical care. Follow these instructions at home: Medicines ??? Take uvor-pgk-eeflwxy and prescription medicines only as told by your doctor. ??? If you are taking blood pressure or heart medicine, get up slowly and spend many minutes getting ready to sit and then stand. This can help with dizziness. Lifestyle ??? Do not drive, use machinery, or play sports until your doctor says it is okay. ??? Do not drink alcohol. ??? Do not smoke or use any products that contain nicotine or tobacco. If you need help quitting, ask your doctor. ??? Avoid hot tubs and saunas. General instructions ??? Be aware of any changes in your symptoms. ??? Talk with your doctor about your symptoms. You may need to have testing to help find the cause. ??? If you start to feel like you might pass out, sit or lie down right away. If sitting, lower your head down between your legs. If lying down, raise (elevate) your feet above the level of your heart. ? Breathe deeply and steadily. Wait until all of the symptoms are gone. ? Have someone stay with you until you feel better. ??? Drink enough fluid to keep your pee (urine) pale yellow. ??? Avoid standing for a long time. If you must stand for a long time, do movements such as: ? Moving your legs. ? Crossing your legs. ? Flexing and stretching your leg muscles. ? Squatting. ??? Keep all follow-up visits. Contact a doctor if: ??? You continue to have episodes of near fainting. Get help right away if: ??? You pass out or faint. ??? You have any of these symptoms: ? Fast or uneven heartbeats (palpitations). ? Pain in your chest, belly, or back. ? Shortness of breath. ??? You have a seizure. ??? You have a very bad headache. ??? You are confused. ??? You have trouble seeing. ??? You are very weak. ??? You have trouble walking. ??? You are bleeding from your mouth or butt. ??? You have black or tarry poop (stool). These symptoms may be an emergency. Get help right away. Call your local emergency services (911 in the [place] ??? Do not wait to see if the symptoms will go away. ??? Do not drive yourself to the hospital. Summary ??? Near-syncope is when you suddenly feel like you might pass out or faint. ??? This condition is caused by a sudden decrease in blood flow to the brain. ??? Near-syncope may be a sign of a serious medical problem, so it is important to seek medical care. ??? If you start to feel like you might pass out, sit or lie down right away. If sitting, lower your head down between your legs. If lying down, raise (elevate) your feet above the level of your heart. ??? Talk with your doctor about your symptoms. You may need to have testing to help find the cause. This information is not intended to replace advice given to you by your health care provider. Make sure you discuss any questions you have with your health care provider. Document Revised: 08/06/2021 Document Reviewed: 08/06/2021 [employer] Patient Education ? 2023 [employer] Medication Leaflets: You may receive a survey from Kamaljit Yanez asking you to rate your care experience. Your feedback is important and will help us understand what we do well and how we can improve the quality of care we provide to you, your loved ones and our community. It???s an honor to serve you. Thank you for choosing [facility] INPATIENT CLINICAL SUMMARY Observed: 06/2023 12:34 PM Status: C Source: [facility] Inpatient Clinical Summary [address] [address] Clinical Summary Person Information: Name: TYRELL WU Age: 23 Years : 2000 Sex: Female PCP: Emery BA DO Marital Status: Race: White Ethnicity: Non- or Language: Kazakh Visit Id: Visit Reason: Abdominal pain; ABD PAIN /PASSED OUT Speciality: Acuity: Enc Type: Observation Med Service: Medical Arrival: 03/12/2024 05:43:15 Discharge: Dispo Type: Admitted as IP to this Hosp Address: [address] [place] [address] Provider Notes: Diagnosis: 1:Syncope; 2:Postural orthostatic tachycardia [...] Attending Physician: Moses Smith DO Consulting Physician: Benjamin Flores MD; Remigio RIZVI, Danielito; [facility] [place], XXXX Referring Physician: Follow up: With: Address: When: Emery BA [address] [place] [phone] 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 With: Address: When: Benjamin Flores MD, CAR Within 2 to 4 weeks Comments: Call for followup appointment Patient Education Information: Postural Orthostatic Tachycardia Syndrome; Orthostatic Hypotension; Near- Syncope, Cwqo-gc-Zxqy DISCHARGE SUMMARY Observed: 03/13/2024 12:08 PM Status: F Source: [facility] Discharge Summary Admission and Discharge Information Admitting Physician - Kai Mcrae MD Consulting Physician - Danielito Flood MD, MD, Jorge [facility] Cardio, XXXX Admitting Diagnoses: Discharge Diagnoses 1. [...] was negative for torsion. Patient was orthostatic hypotensive. Patient was given IV fluids. Patient was admitted [...] EST, syncope, Consult and Co-manage Consult to Customs Brokerage Agent - Ordered -- 03/12/24 13:52:06 EST Physical [...] Follow-up With When Contact Information Mark RIZVI, Benjamin, IRIS Within 2 to 4 weeks Additional Instructions: Call for followup appointment Remigio RIZVI, KYLAH Esteves Within 2 to 4 weeks [facility] [place] [place] [address]- Additional Instructions: Patient Education Postural Orthostatic Tachycardia Syndrome Orthostatic Hypotension Near-Syncope, Rgrh-vk-Sqaf Result Comment: Electronical ly Signed By: Luis SNELL, Moses Sandra.br\Date and Time Signed: 03/13/24 12:08 EST ECHO TRANSTHORACIC COMPLETE Observed: 9:51 AM Status: F Source: [facility] Echocardiology Procedure Exam Date/Time Accession # Ordering Heena Echo Transthoracic 03/13/2024 10:27 EST [id number] Moses Smith DO Complete CPT code [id number] Reason for Exam (Echo Transthoracic Complete) Syncope Report [facility] [address] [place] [address] Adult Echocardiogram Report Name: TYRELL WU Study Date: 03/13/2024 09:56 AM BP: 96/61 mmHg Patient Location: [address] [place] [address] Bed(s) [facility] HR: 57 : 2000 Gender: Female Height: 64 in Age: 23 yrs Ethnicity: T Weight: 174 lb Reason For Study: Syncope BSA: 1.8 m2 History: Murmur Ordering Physician: Luis^Bonilla Performed By: Leyla Mack, REID, RVT Interpretation [...] Doppler Measurements & Calculations MV E max aquiles: 120.0 cm/sec MV dec time: 0.18 sec Ao V2 max: 142.0 cm/sec LV V1 max P.4 mmHg MV A max aquiles: 39.2 cm/sec Ao max P.1 mmHg LV V1 mean P.0 mmHg MV E/A: 3.1 Ao V2 mean: 99.1 cm/sec LV V1 max: 116.0 cm/sec Lat Peak E' Aquiles: 18.5 cm/sec Ao mean P.0 mmHg LV V1 mean: 75.8 cm/sec E/E' Lat: 6.5 Ao V2 VTI: 31.6 cm LV V1 VTI: 24.7 cm Med Peak E' Aquiles: 11.1 cm/sec MARY(I,D): 2.2 cm2 E/E' Med: 10.8 MAYR(V,D): 2.3 cm2 Echocardiology Report SV(LVOT): 69.6 ml TR max aquiles: 202.4 cm/sec RAP systole: 3.0 mmHg AV VR: 0.82 TR max P.4 mmHg MARY(VTI)/BSA_phl: 1.2 RVSP(TR): 19.4 mmHg FINAL REPORT Dictated: 03/13/2024 9:56 am Benjamin Flores MD Signed (Electronic Signature): 03/13/2024 10:43 am Signed by: Benjamin Flores MD Transcribed by: ROSE Technologist: ALONSO INTERDISCIPLINARY NOTE - ZENON E INTERLOCKER Observed: 03/13/2024 9:18 AM Status: F Source: [facility] Interdisciplinary Note - Zenon e Staff Scientist CRM to room 327 Patient is awake, alert and oriented. Patient is from home with her spouse. He is her ride at [place]. He is present in room. Patient verified [...] board updated. CRM following Dc date TBD Result Comment: Electronical ly Signed By: Radha Trevino\.br\Date and Time Signed: 03/13/24 09:28 EST CONSULTATION NOTE Observed: 03/13/2024 7:02 AM Status: F Source: [facility] Consultation Note Chief Complaint abdomenal pain Reason [...] that she was using the bathroom and upon rising had an episode of lightheadedness and loss of consciousness. The patient states that she has had at least 1 of these episodes while [...] sensation in all 4 extremities Cerebellar exam: Yznrsa-ri-fabq reveals no ataxia. Gait is normal Assessment/Plan [...] qualifying data Procedure/Surgical History None. Medications Inpatient acetaminophen 325 mg Tab, 650 mg= 2 tab(s), Oral, q6hr, PRN Dilaudid 0.5 mg/0.5mL Injection, 0.5 mg= 0.5 mL, IV Push, q4hr, PRN Sodium Chloride 0.9% IV Jennifer 1000 mL 1,000 mL, 1000 mL, IV Zofran 4 mg/2 mL Injection, 4 mg= 2 mL, IV Push, q6hr, PRN Home No active home medications Allergies No Known Allergies Social History Alcohol Substance Abuse Tobacco Never (less than 100 in lifetime) Tobacco Use:. Never Smokeless Tobacco Use:., 08/11/2020 Never (less than 100 in lifetime) Tobacco Use:., 04/19/2019 Family History Family history is negative Immunizations Vaccine Date Status influenza virus vaccine, live, trivalent 01/2019 Recorded Lab Results WBC: 7 E9/L (03/13/24 06:16:00) RBC: 3.8 E12/L Low (03/13/24 06:16:00) HGB: 12.6 gm/dL (03/13/24 06:16:00) Hct: 35.7 % (03/13/24 06:16:00) MCV: 93.4 fL (03/13/24 06:16:00) MCH: 32.9 pg (03/13/24 06:16:00) MCHC: 35.3 gm/dL (03/13/24 06:16:00) RDW: 12.6 % (03/13/24 06:16:00) Platelet: 225 E9/L (03/13/24 06:16:00) MPV: 7.8 fL (03/13/24 06:16:00) Neutro Auto: 55.7 % (03/13/24 06:16:00) Lymph Auto: 30.7 % (03/13/24 06:16:00) [place] Auto: 9.2 % (03/13/24 06:16:00) Eos Auto: 3.6 % (03/13/24 06:16:00) Basophil Auto: 0.8 % (03/13/24 06:16:00) Neutro Absolute: 3.9 E9/L (03/13/24 06:16:00) Lymph Absolute: 2.1 E9/L (03/13/24 06:16:00) [place] Absolute: 0.6 E9/L (03/13/24 06:16:00) Eos Absolute: 0.2 E9/L (03/13/24 06:16:00) Basophil Absolute: 0.1 E9/L (03/13/24 06:16:00) [1] ED Note; Tuan Lovell DO 03/12/2024 06:00 EST Result Comment: Electronical ly Signed By: Hayley Nicholas RN\.br\Date and Time Signed: 03/13/24 07:03 EST\.br\Electronically Co-Signed By: Danielito Flood MD\.br\Date and Time Co-Signed: 03/13/24 09:18 EST\.br\Electronically Co- Signed By: Hayley Nicholas RN CONSULTATION NOTE Observed: 03/13/2024 7:02 AM Status: F Source: [facility] Consultation Note Chief Complaint abdomenal pain Reason [...] that she was using the bathroom and upon rising had an episode of lightheadedness and loss of consciousness. The patient states that she has had at least 1 of these episodes while [...] sensation in all 4 extremities Cerebellar exam: Myrumm-ka-yevv reveals no ataxia. Gait is normal Assessment/Plan [...] qualifying data Procedure/Surgical History None. Medications Inpatient acetaminophen 325 mg Tab, 650 mg= 2 tab(s), Oral, q6hr, PRN Dilaudid 0.5 mg/0.5mL Injection, 0.5 mg= 0.5 mL, IV Push, q4hr, PRN Sodium Chloride 0.9% IV Jennifer 1000 mL 1,000 mL, 1000 mL, IV Zofran 4 mg/2 mL Injection, 4 mg= 2 mL, IV Push, q6hr, PRN Home No active home medications Allergies No Known Allergies Social History Alcohol Substance Abuse Tobacco Never (less than 100 in lifetime) Tobacco Use:. Never Smokeless Tobacco Use:., 08/11/2020 Never (less than 100 in lifetime) Tobacco Use:., 04/19/2019 Family History Family history is negative Immunizations Vaccine Date Status influenza virus vaccine, live, trivalent 01/2019 Recorded Lab Results WBC: 7 E9/L (03/13/24 06:16:00) RBC: 3.8 E12/L Low (03/13/24 06:16:00) HGB: 12.6 gm/dL (03/13/24 06:16:00) Hct: 35.7 % (03/13/24 06:16:00) MCV: 93.4 fL (03/13/24 06:16:00) MCH: 32.9 pg (03/13/24 06:16:00) MCHC: 35.3 gm/dL (03/13/24 06:16:00) RDW: 12.6 % (03/13/24 06:16:00) Platelet: 225 E9/L (03/13/24 06:16:00) MPV: 7.8 fL (03/13/24 06:16:00) Neutro Auto: 55.7 % (03/13/24 06:16:00) Lymph Auto: 30.7 % (03/13/24 06:16:00) [place] Auto: 9.2 % (03/13/24 06:16:00) Eos Auto: 3.6 % (03/13/24 06:16:00) Basophil Auto: 0.8 % (03/13/24 06:16:00) Neutro Absolute: 3.9 E9/L (03/13/24 06:16:00) Lymph Absolute: 2.1 E9/L (03/13/24 06:16:00) [place] Absolute: 0.6 E9/L (03/13/24 06:16:00) Eos Absolute: 0.2 E9/L (03/13/24 06:16:00) Basophil Absolute: 0.1 E9/L (03/13/24 06:16:00) [1] ED Note; Liliya SNELL Evelynejames Marmolejo 03/12/2024 06:00 EST Result Comment: Electronical ly Signed By: Hayley Nicholas RN\.br\Date and Time Signed: 03/13/24 07:03 EST\.br\Electronically Co-Signed By: Danielito Flood MD\.br\Date and Time Co-Signed: 03/13/24 09:18 EST TSH WITH T4FR REFLEX Collected: 024 6:16 AM Status: F Source: [facility] TYPE CODE TESTS RESULT OUT OF RANGE REFERENCE UNITS LAB 3016-3([facility]) THYROTROPIN: ACNC:PT:SER/ PLAS:QN: 5.22 Normal 0.34-5.60 mcIU/mL Performed By: #### [id number] #### [facility] [address] [place] [address] EGFR Collected: 4 6:16 AM Status: F Source: [facility] TYPE CODE TESTS RESULT OUT OF RANGE REFERENCE UNITS LAB 56609024([facility]) eGFR 133 Normal >=59 mL/min/1 .7 3 m2 Performed By: #### [id number] #### [facility] [address] [place] [address] BMP Collected: 4 6:16 AM Status: F Source: [facility] TYPE CODE TESTS RESULT OUT OF RANGE REFERENCE UNITS LAB 2345-7([facility]) GLUCOSE:MCNC :PT:SER/PLAS :QN: 104 Normal 55-199 mg/dL LAB 3094-0(LOINC) UREA NITROGEN:MCN C:PT:SER/ARMIDA S:QN: 10 Normal 5-21 mg/dL LAB 2160-0(LOINC) CREATININE:M CNC:PT:SER/P LAS:QN: 0.5 Normal 0.5-1.3 mg/dL LAB 3097-3(LOINC) UREA NITROGEN/CRE ATININE:MRTO :PT:SER/PLAS :QN: 20 Normal 10-20 No Units LAB 37599-3([facility]) CALCIUM:MCNC :PT:SER/PLAS :QN: 8.3 Low 8.9-11.1 mg/dL LAB 2951-2([facility]) SODIUM:SCNC: PT:SER/PLAS: QN: 140 Normal 135-145 mmol/L LAB 2823-3([facility]) POTASSIUM:SC NC:PT:SER/PL :QN: 4.0 Normal 3.5-5.3 mmol/L LAB 2075-0([facility]) CHLORIDE:SCN C:PT:SER/ARMIDA S:QN: 109 Normal 101-111 mmol/L LAB 2028-9([facility]) CARBON DIOXIDE:SCNC :PT:SER/PLAS :QN: 27 Normal 21-31 mmol/L LAB 64613-1([facility]) ANION GAP:SCNC:PT: SER/PLAS:QN: 8 Normal 6-16 mEq/L Performed By: #### [id number] # ### [facility] [address] [place] [address] CORTISOL Collected: 6:16 AM Status: F Source: [facility] TYPE CODE TESTS RESULT OUT OF RANGE REFERENCE UNITS LAB 2143-6([facility]) CORTISOL:MCN C:PT:SER/ARMIDA S:QN: 11.0 Unknown 6.2-19.4 microgram /dL Result Comment: Please Note: The reference interval and flagging for this test is for an AM collection. If this is a PM collection please use: Cortisol PM: 2.3-11.9 Performed at: [facility] [id number] PhD Gilles López Performed By: #### [id number] # ### [facility] [address] [place] [address] CBC W/ AUTO DIFF Collected: 03/13/2024 6:16 AM Statu s: F Source: [facility] TYPE CODE TESTS RESULT OUT OF RANGE REFERENCE UNITS LAB 99334-4([facility]) LEUKOCYTES^^CHARLES ECTED FOR NUCLEATED ERYTHROCYTES:NCN C:PT:BLD:QN:AUTO MATED COUNT 7.0 Normal 4.0-11.0 E9/L LAB 789-8([facility]) ERYTHROCYTES:NCN C:PT:BLD:QN:AUTO MATED COUNT 3.8 Low 4.3-5.9 E12/L LAB 718-7([facility]) HEMOGLOBIN:MCNC: PT:BLD:QN: 12.6 Normal 12.0-16.0 gm/dL LAB 4544-3([facility]) HEMATOCRIT:VFR:P T:BLD:QN:AUTOMAT ED COUNT 35.7 Normal 34.0-46.0 % LAB 788-0([facility]) ERYTHROCYTE DISTRIBUTION WIDTH:RATIO:PT:R BC:QN:AUTOMATED COUNT 12.6 Normal 10.9-14.2 % LAB 785-6([facility]) ERYTHROCYTE MEAN CORPUSCULAR HEMOGLOBIN:ENTMA SS:PT:RBC:QN:AUT OMATED COUNT 32.9 Normal 27.0-34.0 pg LAB 786-4([facility]) ERYTHROCYTE MEAN CORPUSCULAR HEMOGLOBIN CONCENTRATION:MC NC:PT:RBC:QN:AUT OMATED COUNT 35.3 Normal 31.4-36.0 gm/dL LAB 787-2([facility]) ERYTHROCYTE MEAN CORPUSCULAR VOLUME:ENTVOL:PT :RBC:QN:AUTOMATE D COUNT 93.4 Normal 80.0-100.0 fL LAB 58228-9([facility]) PLATELET MEAN VOLUME:ENTVOL:PT :BLD:QN:AUTOMATE D COUNT 7.8 Normal 6.4-10.8 fL LAB 37361925([facility]) Platelet 225.0 Normal 150.0-500.0 E9/ L LAB 26451-7([facility]) NEUTROPHILS/100 LEUKOCYTES:NFR:P T:BLD:QN: 55.7 Normal 36.0-75.0 % LAB 731-0([facility]) LYMPHOCYTES:NCNC :PT:BLD:QN:AUTOM ATED COUNT 30.7 Normal 14.0-50.0 % LAB 742-7([facility]) MONOCYTES:NCNC:P T:BLD:QN:AUTOMAT ED COUNT 0.6 Normal 0.2-1.0 E9/L LAB 713-8([facility]) EOSINOPHILS/100 LEUKOCYTES:NFR:P T:BLD:QN:AUTOMAT ED COUNT 3.6 Normal 0.0-8.0 % LAB 704-7([facility]) BASOPHILS:NCNC:P T:BLD:QN:AUTOMAT ED COUNT 0.8 Normal 0.0-2.0 % LAB 751-8([facility]) NEUTROPHILS:NCNC :PT:BLD:QN:AUTOM ATED COUNT 3.9 Normal 2.0-7.5 E9/L LAB 21769-1([facility]) LYMPHOCYTES:NCNC :PT:BLD:QN: 2.1 Normal 1.0-4.0 E9/L LAB 79828-3(LOINC) EOSINOPHILS:NCNC :PT:BLD:QN: 0.2 Normal 0.0-0.5 E9/L LAB 83696-8(LOINC) BASOPHILS/LEUKOC YTES:NFR.DF:PT:B LD:QN:AUTOMATED COUNT 0.1 Normal 0.0-0.2 E9/L Performed By: #### [id number] # ### [facility] [address] [place] [address] INTERDISCIPLINARY NOTE - ZENON E INTERLOCKER Observed: 03/12/2024 1:55 PM Status: F Source: [facility] Interdisciplinary Note - Zenon e Staff Scientist CRM to room 327 Patient is a new admission Nursing is doing her admit at this time. CRM will see patient on 03/13 Result Comment: Electronical ly Signed By: Radha Trevino\.br\Date and Time Signed: 03/12/24 13:56 EST ED PATIENT SUMMARY Observed: 03/12/2024 12:59 PM Status: F Source: [facility] ED Patient Summary [address] [address] Patient Discharge Instructions Person Information Name: TYRELL WU Age: 23 Years Arrival Date: 03/12/2024 05:43:15 Discharge Diagnosis: 1:Syncope; 2:Postural orthostatic tachycardia syndrome [POTS]; 3:Orthostatic syncope; 4:Abdominal pain, acute; 5:Hypotension; 6:Leukocytosis Primary Care Physician: Emery BA DO Provider Information Primary Provider: Tuan Lovell DO Advanced Willow Machine Tender:None The exam and treatment you received in the Emergency Department were for an urgent problem and are not intended as complete care. It is important that you follow up with a doctor, nurse practitioner, or physician???s or assistant for ongoing care. If your symptoms become worse or you do not improve as expected and you are unable to reach your usual health care provider, you should return to the Emergency Department. We are available 24 hours a day. TYRELL WU has been given the following list of [...] opioids can be used to help relieve teabakrd-pj-vfirib pain and are often prescribed following a [...] guidance from the Food and Drug Administration (www.fda.gov/Drugs/ResourcesForYou). ??? Visit www.cdc.gov/drugoverdose to learn about the risks of opioids abuse and overdose. ??? If you believe you may be struggling with addiction, tell your health outdoor emergency care technician and ask for guidance or call [facility]???S National Helpline at 9-920-309-FBOS. v Source: US Department of Health and Human Services/Center for Disease Control & Prevention [facility] Medications Given: Medication Dose Route Sodium Chloride 0.9% intravenous solution 500.00 mL IV Right Antecubit [place] ketorolac 30.00 mg IV Right Antecubit [place] Sodium Chloride 0.9% intravenous solution 1000.00 mL Initial Volume 1000.00 mL/hr IV Right Antecubit [place] Medication Information: Medications to Continue with No Changes Other Medications ethinyl estradiol-levonorgestrel (Balcoltra) By Mouth every day. Comment: Pharmacy Information: Patient Portal You may access all of your results and other medical record information on our secure patient portal. If you are not signed up for this yet, please contact [employer] Information Management at [phone] to get signed up today. RADHA Award Nomination The RADHA (Diseases Attacking the Immune SYstem) Award is an international recognition program that honors and celebrates the skillful, compassionate care nurses provide every day. Anyone who experiences or observes amazing care being provided by a nurse is encouraged to submit a nomination. To nominate your nurse, use your smart phone to scan the QR code below. You may receive a survey from Kamaljit Yanez asking you to rate your care experience. Your feedback is important and will help us understand what we do well and how we can improve the quality of care we provide to you, your loved ones and our community. It???s an honor to serve you. Thank you for choosing [facility] Patient Education Materials: BRYCE Baez KAYLA M , have received the following patient education materials/instructions and have verbalized understanding: Patient Education Materials: Follow-up Instructions: Patient Signature Date Clinician/Nurse Signature Date 03/12/2024 12:59:25 ED PATIENT EDUCATION NOTE Observed: 05/2023 12:59 PM Status: F Source: [facility] ED Patient Education Note ED CLINICAL SUMMARY Observed: 03/12/2024 12:59 PM Status: F Source: [facility] ED Clinical Summary [place] [id number] ED Clinical Summary Person Information Name: TYRELL WU [place] Age: 23 Years : 2000 Sex: Female Language: Kazakh PCP: Emery BA DO Marital Status: Visit Id: Visit Reason: Abdominal pain; ABD PAIN /PASSED OUT Speciality: Acuity: 3 Enc Type: Observation Med Service: Medical Arrival: 03/12/2024 05:43:15 Discharge: LOS: 000 07:16 Checkin: 03/12/2024 05:43:15 Checkout: 03/12/2024 12:59:23 Dispo Type: Admitted as IP to this [facility] EVENTS: Event Name Event Status Request [...] 03/12/2024 12:07:26 Lab Request 03/12/2024 12:07:26 ADDRESS: [address] [place] [id number] [facility] DOC NOTES: Addendum by Earl Foote DO on March 12, 2024 10:27:34 EST MEDICAL INFORMATION: Prescriptions Given: Medications to Continue with No Changes Other Medications ethinyl estradiol-levonorgestrel (Balcoltra) By Mouth every day. PATIENT EDUCATION INFORMATION: Instructions: Follow up: DIAGNOSIS: 1:Syncope; 2:Postural orthostatic tachycardia syndrome [POTS]; 3:Orthostatic syncope; 4:Abdominal pain, acute; 5:Hypotension; 6:Leukocytosis HISTORY AND PHYSICAL Observed: 12:07 PM Status: C Source: [facility] History and Physical Chief Complaint abd pain starting [...] was negative for torsion. Patient was orthostatic hypotensive. Patient was given IV fluids. Discussed CODE STATUS with patient would like to be full code. Review of Systems Scoring Mathews Fall Risk Score: 20 (03/12/24) Physical Exam Vitals & Measurements T: 37.1 ???C(Oral) HR: 89(Monitored) RR: 13 BP: 100/56 BP: 97/66(Sitting) BP: 89/47(Standing) SpO2: 99% HT: 162 cm WT: 80 kg General: [...] Lymph Auto: 10.6 % Low (03/12/24 06:09:00) [place] Auto: 5.7 % (03/12/24 06:09:00) Eos Auto: 0.6 % (03/12/24 06:09:00) Basophil Auto: 0.2 % (03/12/24 06:09:00) Neutro Absolute: 13.5 E9/L High (03/12/24 06:09:00) Lymph Absolute: 1.7 E9/L (03/12/24 06:09:00) [place] Absolute: 0.9 E9/L (03/12/24 06:09:00) Eos Absolute: [...] (03/12/24 06:09:00) UA WBC: 0-5 (03/12/24 06:09:00) UA Bacteria: Trace (03/12/24 06:09:00) UA Mucous: Trace (03/12/24 06:09:00) U beta hCG Ql: Negative (03/12/24 06:09:00) Assessment/Plan Patient will be admitted under observation status due to estimated length of stay less than 2 midnights. All images, labs, EKGs reviewed DVT PPx???PAS bilaterally Diet???regular CODE STATUS/full code 1. Syncope (R55: Syncope and collapse) Differentials include POTS, orthostatic syncope, vasovagal CT head negative Telemetry Check echo Consult cardio Consult neurology Orthostatics positive in ER IV fluids Lab work relatively benign Check TSH Check cortisol level Ordered: Initial Hospital Care/Day Moderate 55 Minutes 21043 2. Postural orthostatic tachycardia syndrome [POTS] (G90.A: [...] TSH With T4fr Reflex Vital Signs Weight Problem List/Past Medical History Ongoing Abdominal discomfort, epigastric Belching BMI 34.0-34.9,adult Encounter for herb and vitamin supplement management Obesity due to excess calories Systolic murmur Historical No qualifying data Procedure/Surgical History None. Medications Inpatient acetaminophen 325 mg Tab, 650 mg= 2 tab(s), Oral, q6hr, PRN Sodium Chloride 0.9% IV Jennifer 1000 mL 1,000 mL, 1000 mL, IV Zofran 4 mg/2 mL Injection, 4 mg= 2 mL, IV Push, q6hr, PRN Home Balcoltra, Oral, Daily Allergies No Known Allergies Social History Alcohol Substance Abuse Tobacco Never (less than 100 in lifetime) Tobacco Use:. Never Smokeless Tobacco Use:., 08/11/2020 Never (less than 100 in lifetime) Tobacco Use:., 04/19/2019 Family History Family history is negative Immunizations Vaccine Date Status influenza virus vaccine, live, trivalent 01/2019 Recorded Of note patient states her last menstrual cycle was 2 to 3 weeks ago. Patient states menstrual cycles have been irregular since coming off of control 2 years ago. Result Comment: Electronical ly Signed By: Moses Smith DO.br\Date and Time Signed: 03/12/24 12:09 EST US PELVIS NON-OB COMPLETE Observed: 05/2023 7:44 AM Status: F Source: [facility] Exam Date/Time: 03/12/2024 08:08 EST Reason for Exam: ovarian [...] Technologist: CHELY Technical Comments Transabdominal Ultrasound Performed CT ABDOMEN/PELVIS W/ CONTRAST Observed: 03/12/2024 6:36 AM Status: F Source: [facility] Exam Date/Time: 03/12/2024 06:49 EST Reason for [...] lymph nodes. Vasculature: No aneurysm or dissection. Mesentery/peritoneum/retroperitoneum: No ascites, organized fluid collection, inflammatory changes, [...] in ml's: 100 Rectal Contrast Given? No U BETAHCG QUAL Collected: 03/12/2024 6:09 AM Status: F Source: [facility] TYPE CODE TESTS RESULT OUT OF RANGE REFERENCE UNITS LAB 4-7([facility]) CHORIOGONADOT ROPIN.BETA SUBUNIT:SCNC: PT:URINE:QN: Negative Normal Performed By: #### [id number] #### [facility] [address] [place] [address] UA WITH CULT RFLX Collected: 6:09 AM Status: F Source: [facility] TYPE CODE TESTS RESULT OUT OF RANGE REFERENCE UNITS LAB 9194-2([facility]) CLASS:TYPE:PT: URINE COLLECTION METHOD:NOM:* Clean Catch Normal LAB 08447-9([facility]) COLOR:TYPE:PT: URINE:NOM:AUTO Yellow Normal Yellow Result Comment: Microscopic readings are only performed on those samples that meet specific criteria set forth by [facility]. LAB 59916-1(INC) CLARITY:TYPE:P T:URINE:NOM: Clear Normal Clear LAB 5811-5(INC) SPECIFIC GRAVITY:RDEN:P T:URINE:SEMIQN :TEST STRIP 1.017 Unknown 1.005-1.030 LAB 5803-2([facility]) PH:LSCNC:PT:UR INE:SEMIQN:CECILY T STRIP 8.5 Unknown 5.0-9.0 LAB 31102-2([facility]) PROTEIN:PRTHR: PT:URINE:ORD:T EST STRIP 1+ Abnormal Negative mg/dL LAB 56563-3([facility]) GLUCOSE:PRTHR: PT:URINE:ORD:T EST STRIP Negative Normal Negative mg/dL LAB 70887-4(INC) KETONES:PRTHR: PT:URINE:ORD:T EST STRIP.AUTOMATE D Negative Normal Negative mg/dL LAB 11307-0([facility]) BILIRUBIN:PRTH R:PT:URINE:ORD :TEST STRIP.AUTOMATE D Negative Normal Negative mg/dL LAB 76451-5([facility]) HEMOGLOBIN:MCN C:PT:URINE:SUZANNA IQN:TEST STRIP.AUTOMATE D Negative Normal Negative mg/dL LAB 67216-2([facility]) NITRITE:PRTHR: PT:URINE:ORD:T EST STRIP.AUTOMATE D Negative Normal Negative mg/dL LAB 45158-7([facility]) UROBILINOGEN:M CNC:PT:URINE:S EMIQN:TEST STRIP Negative Normal Negative mg/dL LAB 95783-3([facility]) LEUKOCYTE ESTERASE:PRTHR :PT:URINE:ORD: TEST STRIP.AUTOMATE D Negative Normal Negative CD:51018 82860 LAB 52198-9([facility]) LEUKOCYTES:VERONICA IC:PT:URINE SED:QN:AUTOMAT ED COUNT 0-5 Normal 0-5 CD:96292 77148 LAB 21438-3([facility]) ERYTHROCYTES:P RTHR:PT:URINE SED:ORD:MICROS COPY.LIGHT 0-3 Normal 0-3 CD:51609 38756 LAB 10655-3(LOINC) EPITHELIAL CELLS.SQUAMOUS :NARIC:PT:URIN E SED:QN:AUTOMAT ED COUNT 3-4 Unknown CD:60707 87242 LAB 76871-0([facility]) BACTERIA:PRTHR :PT:URINE:ORD: AUTOMATED Trace Normal Trace /HPF LAB 04083-3([facility]) MUCUS:PRTHR:PT :URINE:ORD:AUT OMATED Trace Normal Negative CD:99270 34041 Performed By: #### [id number] #### [facility] [address] [place] [address] TROPONIN 0 HR. Collected: 6:09 AM Status: F Source: [facility] TYPE CODE TESTS RESULT OUT OF RANGE REFERENCE UNITS LAB 46352397([facility]) Troponin HS <2.30 Low 10.10-27.10 pg/mL Result Comment: The 95% CI ( Confidence Interval) PPV (Positive Predictive Value) for myocardial infarction in females is 38 pg/mL, in males 51 pg/mL. The results should be used in conjunction with clinical conditions of myocardial infarction. (Access High Sensitivity Troponin I Instructions For Use, Robin [employer], November 2017) Performed By: #### [id number] #### [facility] [address] [place] [address] CBC W/ AUTO DIFF Collected: 03/12/2024 6:09 AM Statu s: F Source: [facility] TYPE CODE TESTS RESULT OUT OF RANGE REFERENCE UNITS LAB 73868-8([facility]) LEUKOCYTES^^CHARLES ECTED FOR NUCLEATED ERYTHROCYTES:NCN C:PT:BLD:QN:AUTO MATED COUNT 16.3 High 4.0-11.0 E9/L LAB 789-8([facility]) ERYTHROCYTES:NCN C:PT:BLD:QN:AUTO MATED COUNT 4.4 Normal 4.3-5.9 E12/L LAB 718-7([facility]) HEMOGLOBIN:MCNC: PT:BLD:QN: 13.7 Normal 12.0-16.0 gm/dL LAB 4544-3([facility]) HEMATOCRIT:VFR:P T:BLD:QN:AUTOMAT ED COUNT 40.5 Normal 34.0-46.0 % LAB 788-0([facility]) ERYTHROCYTE DISTRIBUTION WIDTH:RATIO:PT:R BC:QN:AUTOMATED COUNT 12.5 Normal 10.9-14.2 % LAB 785-6([facility]) ERYTHROCYTE MEAN CORPUSCULAR HEMOGLOBIN:ENTMA SS:PT:RBC:QN:AUT OMATED COUNT 31.4 Normal 27.0-34.0 pg LAB 786-4([facility]) ERYTHROCYTE MEAN CORPUSCULAR HEMOGLOBIN CONCENTRATION:MC NC:PT:RBC:QN:AUT OMATED COUNT 33.8 Normal 31.4-36.0 gm/dL LAB 787-2([facility]) ERYTHROCYTE MEAN CORPUSCULAR VOLUME:ENTVOL:PT :RBC:QN:AUTOMATE D COUNT 92.9 Normal 80.0-100.0 fL LAB 32295-8([facility]) PLATELET MEAN VOLUME:ENTVOL:PT :BLD:QN:AUTOMATE D COUNT 7.6 Normal 6.4-10.8 fL LAB 18868842([facility]) Platelet 245.0 Normal 150.0-500.0 E9/ L LAB 30963-9([facility]) NEUTROPHILS/100 LEUKOCYTES:NFR:P T:BLD:QN: 82.9 High 36.0-75.0 % LAB 731-0([facility]) LYMPHOCYTES:NCNC :PT:BLD:QN:AUTOM ATED COUNT 10.6 Low 14.0-50.0 % LAB 742-7([facility]) MONOCYTES:NCNC:P T:BLD:QN:AUTOMAT ED COUNT 0.9 Normal 0.2-1.0 E9/L LAB 713-8([facility]) EOSINOPHILS/100 LEUKOCYTES:NFR:P T:BLD:QN:AUTOMAT ED COUNT 0.6 Normal 0.0-8.0 % LAB 704-7([facility]) BASOPHILS:NCNC:P T:BLD:QN:AUTOMAT ED COUNT 0.2 Normal 0.0-2.0 % LAB 751-8([facility]) NEUTROPHILS:NCNC :PT:BLD:QN:AUTOM ATED COUNT 13.5 High 2.0-7.5 E9/L LAB 47900-4([facility]) LYMPHOCYTES:NCNC :PT:BLD:QN: 1.7 Normal 1.0-4.0 E9/L LAB 45484-1([facility]) EOSINOPHILS:NCNC :PT:BLD:QN: 0.1 Normal 0.0-0.5 E9/L LAB 36664-1([facility]) BASOPHILS/LEUKOC YTES:NFR.DF:PT:B LD:QN:AUTOMATED COUNT 0.0 Normal 0.0-0.2 E9/L Performed By: #### [id number] # ### [facility] [address] [place] [address] EGFR Collected: 4 6:09 AM Status: F Source: [facility] TYPE CODE TESTS RESULT OUT OF RANGE REFERENCE UNITS LAB 96496675([facility]) eGFR 127 Normal >=59 mL/min/1 .7 3 m2 Performed By: #### [id number] #### [facility] [address] [place] [address] BMP Collected: 4 6:09 AM Status: F Source: [facility] TYPE CODE TESTS RESULT OUT OF RANGE REFERENCE UNITS LAB 2345-7([facility]) GLUCOSE:MCNC :PT:SER/PLAS :QN: 108 Normal 55-199 mg/dL LAB 3094-0([facility]) UREA NITROGEN:MCN C:PT:SER/ARMIDA S:QN: 11 Normal 5-21 mg/dL LAB 2160-0([facility]) CREATININE:M CNC:PT:SER/P LAS:QN: 0.6 Normal 0.5-1.3 mg/dL LAB 3097-3([facility]) UREA NITROGEN/CRE ATININE:MRTO :PT:SER/PLAS :QN: 18 Normal 10-20 No Units LAB 38448-1([facility]) CALCIUM:MCNC :PT:SER/PLAS :QN: 9.0 Normal 8.9-11.1 mg/dL LAB 2951-2([facility]) SODIUM:SCNC: PT:SER/PLAS: QN: 138 Normal 135-145 mmol/L LAB 2823-3([facility]) POTASSIUM:SC NC:PT:SER/PL :QN: 3.9 Normal 3.5-5.3 mmol/L LAB 2075-0([facility]) CHLORIDE:SCN C:PT:SER/ARMIDA S:QN: 106 Normal 101-111 mmol/L LAB 2027-9([facility]) CARBON DIOXIDE:SCNC :PT:SER/PLAS :QN: 27 Normal 21-31 mmol/L LAB 82982-5([facility]) ANION GAP:SCNC:PT: SER/PLAS:QN: 9 Normal 6-16 mEq/L Performed By: #### [id number] # ### [facility] [address] [place] [address] LIPASE LEVEL Collected: 03/12/2024 6:09 AM Status: F Source: [facility] TYPE CODE TESTS RESULT OUT OF RANGE REFERENCE UNITS LAB 3040-3([facility]) TRIACYLGLYCEROL LIPASE:CCNC:PT:SER/ PLAS:QN: 19 Normal 13-58 unit/L Performed By: #### [id number] # ### [facility] [address] [place] [address] HEP FUNC PANEL Collected: 03/12/2024 6:09 AM Status: F Source: [facility] TYPE CODE TESTS RESULT OUT OF RANGE REFERENCE UNITS LAB 1744-2([facility]) ALANINE AMINOTRANSFERA SE:CCNC:PT:SER /PLAS:QN:NO ADDITION OF P-5'-P 14 Normal 6-46 Int._Unit /L LAB 1920-8([facility]) ASPARTATE AMINOTRANSFERA SE:CCNC:PT:SER /PLAS:QN: 16 Normal 5-43 Int._Unit /L LAB 1751-7([facility]) ALBUMIN:MCNC:P T:SER/PLAS:QN: 4.1 Normal 3.3-5.0 gm/dL LAB 15750-2([facility]) GLOBULIN:MCNC: PT:SER:QN:CALC ULATED 2.8 Normal 1.4-4.0 gm/dL LAB 71205-5([facility]) ALBUMIN/GLOBUL IN:MCRTO:PT:SE R:QN: 1.5 Normal 1.1-2.2 LAB 6768-6([facility]) ALKALINE PHOSPHATASE:CC NC:PT:SER/PLAS :QN: 38 Normal 21-98 Int._Unit /L LAB 1968-7([facility]) BILIRUBIN.GLUC URONIDATED+AMALIA IRUBIN.ALBUMIN BOUND:MCNC:PT: SER/PLAS:QN: 0.1 Normal 0.0-0.4 mg/dL LAB 70755-3([facility]) BILIRUBIN.NON- GLUCURONIDATED :MSCNC:PT:SER/ PLAS:QN: 0.6 Normal 0.1-0.9 mg/dL LAB 1975-2([facility]) BILIRUBIN:MCNC :PT:SER/PLAS:Q N: 0.7 Normal 0.0-1.1 mg/dL LAB 2885-2([facility]) PROTEIN:MCNC:P T:SER/PLAS:QN: 6.9 Normal 6.0-7.8 gm/dL Performed By: #### [id number] # ### [facility] [address] [place] [address] EXTRA BLUE Collected: 03/12/2024 6:09 AM Status: F Source: [facility] TYPE CODE TESTS RESULT OUT OF RANGE REFERENCE UNITS LAB CD:[id number](L OINC) Tube Collected Plasma Yes Unknown Performed By: #### [id number] #### [facility] [address] [place] [address] ED NOTE-PHYSICIAN Observed: 03/12/2024 6:00 AM Status: C Source: [facility] ED Note-Physician Basic Information Time Seen: Tuan [...] and Complexity of Problems Differential Diagnosis: [] [facility] Data External documents reviewed: [] My [...] Lymph Auto: 10.6 % Low (03/12/24 06:09:00) [place] Auto: 5.7 % (03/12/24 06:09:00) Eos Auto: 0.6 % (03/12/24 06:09:00) Basophil Auto: 0.2 % (03/12/24 06:09:00) Neutro Absolute: 13.5 E9/L High (03/12/24 06:09:00) Lymph Absolute: 1.7 E9/L (03/12/24 06:09:00) [place] Absolute: 0.9 E9/L (03/12/24 06:09:00) Eos Absolute: [...] (03/12/24 06:09:00) UA WBC: 0-5 (03/12/24 06:09:00) UA Bacteria: Trace (03/12/24 06:09:00) UA Mucous: Trace (03/12/24 06:09:00) U beta hCG Ql: Negative (03/12/24 06:09:00) Diagnostic Results No qualifying data available. Patient was signed out to me by [...] and repeat CBC. Additional diagnoses: Leukocytosis, hypotension Result Comment: Electronical ly Signed By: Earl Foote DO\.br\Date and Time Signed: 03/12/24 10:29 EST ED NOTE-PHYSICIAN Observed: 03/12/2024 6:00 AM Status: F Source: [facility] ED Note-Physician Basic Information Time Seen: Tuan [...] and Complexity of Problems Differential Diagnosis: [] [facility] Data External documents reviewed: [] My [...] Lymph Auto: 10.6 % Low (03/12/24 06:09:00) [place] Auto: 5.7 % (03/12/24 06:09:00) Eos Auto: 0.6 % (03/12/24 06:09:00) Basophil Auto: 0.2 % (03/12/24 06:09:00) Neutro Absolute: 13.5 E9/L High (03/12/24 06:09:00) Lymph Absolute: 1.7 E9/L (03/12/24 06:09:00) [place] Absolute: 0.9 E9/L (03/12/24 06:09:00) Eos Absolute: [...] (03/12/24 06:09:00) UA WBC: 0-5 (03/12/24 06:09:00) UA Bacteria: Trace (03/12/24 06:09:00) UA Mucous: Trace (03/12/24 06:09:00) U beta hCG Ql: Negative (03/12/24 06:09:00) Diagnostic Results No qualifying data available. Result Comment: Electronical ly Signed By: Tuan Lovell DO.br\Date and Time Signed: 03/12/24 06:46 EST ALLERGIES DATE TYPE / CODE NAME / CODE REACTION SEVERITY SOURCE /[id number](SNOMED CT) No Known Allergies [facility] ENCOUNTERS ADMIT/DISCHARGE ACCOUNT NUMBER ADMITTING ENCOUNTER CLASS LOCATION SOURCE 12/17/2024/12/18/19 [id number] Ambulatory Building:NOM S [facility] 12/17/2024/12/18/19 [id number] Ambulatory Building:NOM S [facility] 11/13/2024/11/14/19 25 [id number] Ambulatory Building:NOM S [facility] 11/05/2024/11/06/19 25 [id number] Ambulatory Building:NOM S [facility] 10/16/2024/10/17/19 [id number] Ambulatory Building:NOM S [facility] 09/14/2024/09/15/19 [id number] Ambulatory Building:NOM S [facility] 08/30/2024/08/31/19 [id number] Ambulatory Building:NOM S [facility] 08/28/2024/08/29/19 [id number] Ambulatory Building:NOM S [facility] 06/04/2024/06/06/19 25 [id number] Ambulatory Building:LNI V [facility] 03/12/2024/03/13/20 24 [id number] Kai Mcrae [facility]oom: [id number]: 01 [facility] 03/12/2024/03/13/20 24 [id number] Kai Mcrae [facility]oom: [id number]: 01 [facility] 03/12/2024 [id number] Emergency [facility]EDRoom: ED-12Bed: CD:[id number] [facility] 03/12/2024 [id number] Kai Mcrae Ambulatory [facility]3SRoom: [id number]: 01 [facility] PAYERS ENCOUNTER GUARANTOR PAYER SUBSCRIBER SOURCE 12/17/2024 TYRELL [place]OB: [place] [address]Tux: () Primary Insurance:IdeaPaintPolicy Number: [id number] Date:2024-05-12 TYRELL ROSADOB: [id number] [place] [address] [facility] 12/17/2024 TYRELL ROSADOB: [place] [address]Fqv: (HP) Primary Insurance:IdeaPaintPolicy Number: [id number] Date:2024-05-12 TYRELL ROSADOB: [id number] [place] [address] [facility] 11/13/2024 TYRELL WILSONDOB: [place] [address]Bjy: (HP) Primary Insurance:RIZZO MARKETPLACEPolicy Number: [id number] Date:2024-05-12 TYRELL WILSONDOB: [id number] [place] [address] [facility] EPIC 11/05/2024 TYRELL WILSONDOB: [place] [address]Bwf: (HP) Primary Insurance:RIZZO MARKETPLACEPolicy Number: [id number] Date:2024-05-12 TYRELL WILSONDOB: [id number] [place] [address] [facility] EPIC 10/16/2024 TYRELL WILSONDOB: [place] [address]Pom: (HP) Primary Insurance:RIZZO MARKETSoThreePolicy Number: [id number] Date:2024-05-12 TYRELL WILSONDOB: [id number] [place] [address] [facility] EPIC 09/14/2024 TYRELL WILSONDOB: [place] [address]Dhe: (HP) Primary Insurance:RIZZO MARKETPLACEPolicy Number: [id number] Date:2024-05-12 TYRELL WILSONDOB: [id number] [place] [address] [facility] EPIC 08/30/2024 TYRELL WILSONDOB: [place] [address]Jns: (HP) Primary Insurance:RIZZO MARKETPLACEPolicy Number: [id number] Date:2024-05-12 TYRELL WUDOB: [id number] [place] [address] [facility] EPIC 08/28/2024 TYRELL WUDOB: MARIBEL MCCLOUD [address]Vrc: (HP) Primary Insurance:RIZZO MARKETPLACEPolicy Number: [id number] Date:2024-05-12 TYRELL WUDOB: [id number] [place] [address] [facility] EPIC 06/04/2024 TYRELL WUDOB: [address] [place] [place] [address]Sqr: (HP) Primary Insurance:[facility] ACAPolicy Number: [id number] Date:[id number] [address]GL: TYRELL Leung BRYCEDOB: [id number] [place] [place] [address]Vhb: (HP) [facility] 03/12/2024 TYRELL Leung BRYCEDOB: RIDGEWAY STTel: (HP) Primary Insurance:[facility] ResourcesPolicy Number: Effective Date:[id number] [address] [address]DU: JOE RODRÍGUEZ [facility] 03/12/2024 TYRELL Leung BRYCEDOB: [address]IDGEWAY STTel: (HP) Primary Insurance:[facility] ResourcesPolicy Number: Effective Date:[id number] [address]VP: JOE RODRÍGUEZ [facility] 03/12/2024 TYRELL Madhu ASHLEEB: [facility] () Primary Insurance:[facility]Policy Number: Effective Date:[id number] [address]VP: [facility] 03/12/2024 TYERLL OSWALD: [facility]: () Primary Insurance:[facility] ResourcesPolicy Number: Effective Date:[id number] [address]LR: [facility]
--- OUTSIDE RECORDS SUMMARY | 2025-01-09 09:57 | XMS_ITS | Encounter Summary ---
Author Organization [facility] Address [address] [place] [address] Care Team Providers Care Short Order Fry Cook Name Role Phone Emery Flood MD Primary Care Provider Encounter Details Date Type Department Care Team (Late st Contact Info) Description 10/09/2024 Abstract [facility] [address] [facility] [place] [address] Morro Doty DO [address] [place], [place] [address] Social History Tobacco Use Types Packs/Day Years Used Date Smoking Tobacco: Never Assessed Estimated Date of Delivery Comme nts Yes 05/04/2025 Based on Ultraso und Sex and Gender Information Value Date Recorded Sex Assigned at Female 08/23/2023 1:04 PM EDT Legal Sex Female 11:49 PM EDT Gender Identity Female 08/23/2023 1:04 PM EDT Sexual Orientation Straight 08/23/2023 1: 04 PM EDT documented as of this encounter Plan of Treatment Upcoming Encounters Date Type Department Care Team (Late st Contact Info) Description 01/15/2025 10:30 AM EDT Routine TAY [facility] [address] [place] [address] Apurva Sainz, PJ [address] [place] [address] 01/31/2025 3:50 PM EDT Office [facility] [address] [place] [address] Whit Lucero PA [address] [place] [address] documented as of this encounter Visit Diagnoses Not on filedocumented in this encounter Care Teams Short Order Fry Cook Relationship Specialty Start Date End Date Emery Flood MD [address] [place] [address] PCP - General Conductor/Brakeman 03/20/24 documented as of this encounter
--- OUTSIDE RECORDS SUMMARY | 2025-01-09 09:57 | XMS_ITS | Clinical Summary ---
Author Organization [facility] Address [address] [place] [address] Care Team Providers Care Tool Grinder Operator External Name Role Phone Emery Flood MD Primary Care Provider [phone] Allergies No known active allergies Medications No known medications Active Problems Problem Noted Date Diagnosed Date Vasovagal episode 10/16/2024 Amenorrhea 09/14/2024 Encounter for supervision of normal first in first trimester ([facility]) 09/14/2024 Missed menses 08/30/2024 Estimated Date of Delivery Comme nts Yes 05/04/2025 Based on Ultraso und Encounters Date Type Department Care Team Description 01/08/2025 Travel 12/17/2024 9:20 [place] [address] Apurva Sainz, PJ Second trimester ([facility]); 20 weeks gestation of ([facility]); Vasovagal episode 12/17/2024 8:00 AM EDT [place] [address] Screening, , for anatomic survey ([facility]) 12/10/2024 Travel 11/15/2024 Abstract [facility] [address] [place] [address] Christina Hua MA 11/13/2024 11:00 AM EDT Routine TAY WRIGHTN [address] [place] [address] Sunshine Mclean PA Second trimester ([facility]); 15 weeks gestation of ([facility]); Vasovagal episode; Need for maternal serum alpha-protein (MSAFP) screening ([facility]); Screening, , for anatomic survey ([facility]) 11/12/2024 Travel 11/05/2024 3:20 PM EDT Routine [facility] [place] [address] Sunshine Mclean PA Second trimester ([facility]); 14 weeks gestation of ([facility]); Vasovagal symptom; Screen for STD (sexually transmitted disease); Yeast infection 11/05/2024 Bamboo flowsheet [facility] [place] [address] Sunshine Mclean PA 11/03/2024 Travel 10/17/2024 Abstract [facility] [place] [address] Christina Hua MA 10/16/2024 9:10 AM EDT Routine [facility] [address] Morro Doty DO First trimester ([facility]); 11 weeks gestation of ([facility]); Vasovagal episode 10/16/2024 Bamboo flowsheet [facility] [address] Morro Doty DO 10/09/2024 Abstract [facility] [place] [address] Morro Doty, 10/09/2024 Travel from Last 3 Months Social History Tobacco Use Types Packs/Day Years Used Date Smoking Tobacco: Never Assessed Estimated Date of Delivery Comme nts Yes 05/04/2025 Based on Ultraso und Sex and Gender Information Value Date Recorded Sex Assigned at Female 08/23/2023 1:04 PM EDT Legal Sex Female 11:49 PM EDT Gender Identity Female 08/23/2023 1:04 PM EDT Sexual Orientation Straight 08/23/2023 1: 04 PM EDT Last Filed Vital Signs Vital Sign Reading Time Taken Comments Blood Pressure 118/74 12/17/2024 9:08 AM EDT Pulse - - Temperature - - Respiratory Rate - - Oxygen Saturation - - Inhaled Oxygen Concentration - - Weight 82.1 kg (181 lb) 12/17/2024 9:08 AM EDT Height 162.6 cm (5' 4 ) 08/24/2023 9:07 AM EDT Body Mass Index 31.07 08/24/2023 9:07 AM EDT Plan of Treatment Upcoming Encounters Date Type Department Care Team (Late st Contact Info) Description 01/15/2025 10:30 AM EDT Routine [facility] [address] [facility] [place] [address] Apurva Sainz, PJ [address] [facility] [place] [address] 01/31/2025 3:50 PM EDT Office Visit [facility] [address] [place] [address] Whit Lucero PA [address] [place] [address] Procedures Procedure Name Priority Date/Time Associated Diagnosis Comments POCT URINALYSIS DIPSTICK Routine 12/17/2024 9:15 AM EDT Second trimester ([facility]) OB 14+ WEEKS ANATOMY SCAN Routine 12/17/2024 8:58 AM EDT Screening, , for anatomic survey ([facility]) POCT URINALYSIS DIPSTICK Routine 11/13/2024 11:21 AM EDT Second trimester ([facility]) RECURRENT VAGINITIS (HTRX) Routine 11/05/2024 4:23 PM EDT POCT URINALYSIS DIPSTICK Routine 11/05/2024 3:45 PM EDT Second trimester ([facility]) POCT URINALYSIS DIPSTICK Routine 10/16/2024 9:35 AM EDT First trimester ([facility]) from Last 3 Months Results * (ABNORMAL) POCT urinalysis dipstick manually resulted (12/17/2024 9:15 AM EDT) Only the most recent of4 resultswithin the time period is included. Color, UA Yellow Clarity, UA Clear Glucose, UA Negative Negative - 2000(110) ++++ mg/dL Bilirubin, UA Negative Negative - 4(70) +++ mg/dL Ketones, UA Negative Negative - 160(16) ++++ mg/dL Spec Grav, UA 1.015 1 - 1.03 Blood, UA Negative Negative - 50 Edin/mcL pH, UA 6.0 5 - 9 Protein, UA Negative Negative - 2000(20) ++++ mg/dL Urobilinogen, UA 1.0 0.2 - 12 mg/dL Leukocytes, UA 3+ Negative - 500+++ Tiffany/mcL Nitrite, UA Negative Negative - Positive Urine 12/17/2024 9:15 AM EDT us Apurva Sainz NP POINT OF CARE TEST ENTER/EDIT ORDERABLES Final Result * US OB 14+ weeks anatomy scan (12/17/2024 8:58 AM EDT) Anatomical Region Laterality Modality Body Ultrasound 12/19/2024 2:53 PM EDT Impressions 12/19/2024 3:01 PM EDT 1. Single, live intrauterine , current sonographic age of 20 weeks and 2 days, with an estimated date of delivery of May 04, 2025. 2. 4.1 cm cervical length with a small amount of endocervical fluid * Estimated Weight (g) by Percentile is based upon an accurate estimated age based on last menstrual period. TRANSCRIBED BY: ELECTRONICALLY SIGNED BY: Live Hernandez MD Narrative 12/19/2024 3:01 PM EDT FINDINGS: A single, live intrauterine is present [...] is 375 grams (0 pounds, 13 ounces). Procedure Note Live Hernandez MD - 12/19/2024 FINDINGS: A single, live intrauterine is present with normal cardiacrate of 144 beats per minute. Normal activity and amniotic fluidvolume. Morphology is grossly normal. The placenta is anterior, inferioraspect 4.7 cm from the closed internal cervical os, 4.1 cm length (smallamount of endocervical fluid, no significant funneling of the internalcervical os. The current sonographic age is weeks and days, based on thefollowing measurements: BPD 4.5 cm (19 weeks, 4 days) Head Circumference 17.3 cm (19 weeks, 6 days) Abdominal Circumference 15.8 cm (20 weeks, 6 days) Femur Length 3.5 cm (20 weeks, 6 days) Presentation Breech Placenta Anterior Weight (g) by Percentile 71.8 % * These measurements result in an estimated date of delivery of Thecurrent estimated weight is 375 grams (0 pounds, 13 ounces). IMPRESSION: 1. Single, live intrauterine , current sonographic age of 20weeks and 2 days, with an estimated date of delivery of April. 2. 4.1 cm cervical length with a small amount of endocervical fluid * Estimated Weight (g) by Percentile is based upon an accurateestimated age based on last menstrual period. TRANSCRIBED BY: ELECTRONICALLY SIGNED BY: Live Hernandez MD us Sunshine THAO IMG OB US PROCEDURES Final Resul t * RECURRENT VAGINITIS (HTRX) (11/05/2024 4:23 PM EDT) [facility] ATOPOBIUM VAGINAE 0 19.961 - 24.689 ppm 11/07/2024 6:18 AM EDT [facility] ATOPOBIUM VAGINAE Not Detected 19.961 - 24.689 ppm 11/07/2024 6:18 AM EDT [facility] BVAB 2,3 (BACTERIAL VAGINOSIS ASSOCIATED BACTERIA 2, 3); MOBILUNCUS SPP 0 19.961 - 24.689 ppm 11/07/2024 6:18 AM EDT [facility] BVAB 2,3 (BACTERIAL VAGINOSIS ASSOCIATED BACTERIA 2, 3); MOBILUNCUS SPP Not Detected 19.961 - 24.689 ppm 11/07/2024 6:18 AM EDT [facility] VAN ALBICANS, PARAPSILOSIS, TROPICALIS 0 23.000 - 30.347 ppm 11/07/2024 6:18 AM EDT [facility] VAN ALBICANS, PARAPSILOSIS, TROPICALIS Not Detected 23.000 - 30.347 ppm 11/07/2024 6:18 AM EDT [facility] VAN GLABRATA 0 23.000 - 31.618 ppm 11/07/2024 6:18 AM EDT [facility] VAN GLABRATA Not Detected 23.000 - 31.618 ppm 11/07/2024 6:18 AM EDT [facility] VAN KRUSEI 0 23.000 - 30.873 ppm 11/07/2024 6:18 AM EDT [facility] VAN KRUSEI Not Detected 23.000 - 30.873 ppm 11/07/2024 6:18 AM EDT [facility] CHLAMYDIA TRACHOMATIS 0 23.000 - 31.586 ppm 11/07/2024 6:18 AM EDT [facility] CHLAMYDIA TRACHOMATIS Not Detected 23.000 - 31.586 ppm 11/07/2024 6:18 AM EDT [facility] GARDNERELLA VAGINALIS 0 19.961 - 24.689 ppm 11/07/2024 6:18 AM EDT [facility] GARDNERELLA VAGINALIS Not Detected 19.961 - 24.689 ppm 11/07/2024 6:18 AM EDT [facility] MEGASPHAERA (TYPES 1, 2) 0 19.961 - 24.689 ppm 11/07/2024 6:18 AM EDT [facility] MEGASPHAERA (TYPES 1, 2) Not Detected 19.961 - 24.689 ppm 11/07/2024 6:18 AM EDT [facility] NEISSERIA GONORRHOEAE 0 23.000 - 32.587 ppm 11/07/2024 6:18 AM EDT [facility] NEISSERIA GONORRHOEAE Not Detected 23.000 - 32.587 ppm 11/07/2024 6:18 AM EDT [facility] TRICHOMONAS VAGINALIS 0 23.000 - 31.995 ppm 11/07/2024 6:18 AM EDT [facility] TRICHOMONAS VAGINALIS Not Detected 23.000 - 31.995 ppm 11/07/2024 6:18 AM EDT [facility] MYCOPLASMA GENITALIUM 0 19.961 - 24.689 ppm 11/07/2024 6:18 AM EDT [facility] MYCOPLASMA GENITALIUM Not Detected 19.961 - 24.689 ppm 11/07/2024 6:18 AM EDT [facility] Tissue 11/05/2024 4:23 PM EDT 11/07/2024 1:21 AM EDT us Sunshine THAO LAB BLOOD ORDERABLES Final Resul t [facility] [address] [address] from Last 3 Months Insurance [employer] Care Teams Tool Grinder Operator External Relationship Specialty Start Date End Date Emery Flood MD [address] [place] [address] PCP - General Public Records Researcher 03/20/24
--- OUTSIDE RECORDS SUMMARY | 2025-01-09 09:57 | XMS_ITS | Encounter Summary ---
Author Organization [facility] Address [address] [place] [address] Care Team Providers Care Sheet Sorter Name Role Phone Emery Flood MD Primary Care Provider Encounter Details Date Type Department Care Team (Late st Contact Info) Description 11/15/2024 Abstract [facility] [address] [facility] [address] Christina Hua MA Social History Tobacco Use Types Packs/Day Years [...] Info) Description 01/15/2025 10:30 AM EDT Routine [facility] [address] [facility] [place] [address] Apurva Sainz, PJ [address] [place] [address] 01/31/2025 3:50 PM EDT Office Visit [facility] [place] [facility] [address] [place] [address] Whit Lucero PA [address] [place] [address] documented as of this encounter Visit Diagnoses Not on filedocumented in this encounter Care Teams Sheet Sorter Relationship Specialty Start Date End Date Emery Flood MD [address] [place] [address] PCP - General Manager Call 03/20/24 documented as of this encounter
--- OUTSIDE RECORDS SUMMARY | 2025-01-09 09:57 | XMS_ITS | Clinical Summary ---
Author Organization [facility] Address [address] [facility], [address] [place] [address] Care Team Providers Care Mathematics Education Professor Name Role Phone Emery Flood DO Primary Care Provider [phone] Allergies No known active allergies Medications No known medications Active Problems Problem Noted Date Diagnosed Date Obesity 08/18/2020 Systolic murmur 08/18/2020 Resolved Problems Problem Noted Date Diagnosed Date Resolved Date Burping 08/18/2020 03/15/2024 Epigastric discomfort 08/18/20202023 Family History Medical History Relation Name Comments Heart Attack Father Dad Relation Name Status Comments Father Dad Social History Tobacco Use Types Packs/Day Years Used Date Smoking Tobacco: Never Smokeless Tobacco: Never Tobacco Cessation:Counseling Given: No Alcohol Use Standard Drinks/Week Comments Never 0 (1 standard drink = 0.6 oz pur e alcohol) AUDIT-C Answer Date Recorded Q1: How often do you have a drink containing alc ohol? Never 08/18/2020 Q2: How many drinks containi ng alcohol do you have on a typical day when you are drinking? Not asked 08/18/2020 Q3: How often do you have six or more drinks on one occasion? Never 08/18/2020 Overall Financial Resource Strain (CARDIA) Answe r Date Recorded How hard is it for you to pa y for the very basics like food, housing, medical care, and heating? Not hard at all 09/29/2023 PHQ-2 Answer Date Recorded PHQ-9 Total Score 0 09/29/2023 Hunger Vital Sign Answer Date Recorded Within the past 12 months, y ou worried that your food would run out before you got the money to buy more. Never true 09/29/19 24 Within the past 12 months, t he food you bought just didn't last and you didn't have money to get more. Never true 09/29/2023 PRAPARE - Transportation Answer Date Re corded Lack of Transportation (Medical) Not on file 09/29/2023 In the past 12 months, has l ack of transportation kept you from meetings, work, or from getting things needed for daily living? No 09/29/2023 Housing Stability Vital Sign Answer Drew e Recorded Unable to Pay for Housing in the Last Year Not o n file 09/29/2023 Number of Places Lived in the Last Year Not on f ile 09/29/2023 In the last 12 months, was t here a time when you did not have a steady place to sleep or slept in a mcfp (including now)? No 09/29/2023 Food Insecurity Answer Date Recorded Within the past 12 months, y ou worried that your food would run out before you got the money to buy more. 1 09/29/2023 Within the past 12 months, t he food you bought just didn't last and you didn't have money to get more. 1 09/29/2023 Comments No Sex and Gender Information Value Date Recorded Sex Assigned at Not on file Legal Sex Female 12:42 PM EDT Gender Identity Not on file Sexual Orientation Not on file Last Filed Vital Signs Vital Sign Reading Time Taken Comments Blood Pressure 120/76 03/15/2024 9:25 AM EST Pulse 86 03/15/2024 9:25 AM EST Temperature 36.4 C (97.6 F) 03/15/2024 9:25 AM EST Respiratory Rate 16 08/18/2020 12:5 9 PM EDT Oxygen Saturation 99% 03/15/2024 9:25 AM EST Inhaled Oxygen Concentration - - Weight 79.3 kg (174 lb 12.8 oz) 03/15/2024 9:25 AM EST Height 162.6 cm (5' 4 ) 03/15/2024 9:25 AM EST Body Mass Index 30 03/15/2024 9:25 AM EST Plan of Treatment Health Maintenance Due Date Last Done Comments Varicella vaccine (1 of 2 - 13+ 2-dose series) 10/29/2011 HIV screen 2013 HPV vaccine (1 - 3-dose series) 2013 Hepatitis C screen 2016 DTaP/Tdap/Td vaccine (1 - Tdap) 2017 Hepatitis B vaccine (1 of 3 - 19+ 3-dose series) 2017 Pap smear 10/29/2019 Depression Screen 09/28/2024 09/29/2023 Flu vaccine (#1) 11/09/2024 COVID-19 Vaccine (1 - 2023-2 5 season) 2024 Hepatitis A vaccine Aged Out No longe r eligible based on patient's age to complete this topic Hib vaccine Aged Out No longer eligi ble based on patient's age to complete this topic Meningococcal (ACWY) vaccine Aged Out No longer eligible based on patient's age to complete this topic Meningococcal B vaccine Aged Out No l onger eligible based on patient's age to complete this topic Pneumococcal 0-49 years Vaccine Aged Out No longer eligible based on patient's age to complete this topic Polio vaccine Aged Out No longer elig ible based on patient's age to complete this topic Insurance [employer]ZE[employer] Care Teams Mathematics Education Professor Relationship Specialty Start Date End Date Emery Flood DO [address] [place] [address] PCP - General Family Medicine 09/29/23
--- OUTSIDE RECORDS SUMMARY | 2025-01-09 09:57 | XMS_ITS | Encounter Summary ---
Author Organization [facility] Address [address] [place] [address] Care Team Providers Care Tank Truck Loader Name Role Phone Emery Flood MD Primary Care Provider Encounter Details Date Type Department Care Team (Latest Contact Info) Description 01/08/2025 Travel Social History Tobacco Use Types Packs/Day Years [...] Description 01/15/2025 10:30 AM EDT Routine [facility] [place] [facility] [address] [facility] [place] [address] Apurva Sainz, PJ [address] [facility] [place] [address] 01/31/2025 3:50 PM EDT Office Visit [facility] [address] [place] [address] Whit Lucero PA [address] [place] [address] documented as of this encounter Visit Diagnoses Not on filedocumented in this encounter Care Teams Tank Truck Loader Relationship Specialty Start Date End Date Emery Flood MD [address] [place] [address] PCP - General Land Agent 03/20/24 documented as of this encounter
--- OUTSIDE RECORDS SUMMARY | 2025-01-09 09:57 | XMS_ITS | Encounter Summary ---
Author Organization [facility] Address [address] [place] [address] Care Team Providers Care Head Housekeeper Name Role Phone Emery Flood MD Primary Care Provider Encounter Details Date Type Department Care Team (Late Contact Info) Description 08/29/2024 Results Follow-Up [facility] [place] [facility] [address] [employer] [place] [address] Beth Early LPN [address] [employer] [place] [address] RECURRENT VAGINITIS (HTRX) Social History Tobacco Use Types Packs/Day Years Used Date Smoking Tobacco: Never Assessed Comments Unknown Sex and Gender Information Value Date Recorded Sex Assigned at Female 08/23/2023 1:04 PM EDT Legal Sex Female 11:49 PM EDT Gender Identity Female 08/23/2023 1:04 PM EDT Sexual Orientation Straight 08/23/2023 1: 04 PM EDT documented as of this encounter Miscellaneous Notes * Result Encounter Note - Beth Early LPN - 08/29/2024 1:50 PM EDT Pt notified and treated. documented in this encounter Plan of Treatment Upcoming Encounters Date Type Department Care Team (Late st Contact Info) Description 01/15/2025 10:30 AM EDT Routine [facility] [place] [facility] [address] [facility] [place] [address] Apurva Sainz, PJ [address] [facility] [place] [address] 01/31/2025 3:50 PM EDT Office Visit [facility] [address] [place] [address] Whit Lucero PA [address] [place] [address] documented as of this encounter Visit Diagnoses Not on filedocumented in this encounter Care Teams Head Housekeeper Relationship Specialty Start Date End Date Emery Flood MD [address] [place] [address] PCP - General Elementary School Principal 03/20/24 documented as of this encounter
--- OUTSIDE RECORDS SUMMARY | 2025-01-09 09:57 | XMS_ITS | Encounter Summary ---
Author Organization [facility] Address [address] [place] [address] Care Team Providers Care Medicare Biller Name Role Phone Emery Flood MD Primary Care Provider Encounter Details Date Type Department Care Team (Late st Contact Info) Description 08/31/2024 Results Follow-Up [facility] [place] [facility] [address] [facility] [place] [address] Beth Early LPN [address] [employer] [place] [address] [facility] PREG QUANT HCG Social History Tobacco Use Types Packs/Day Years [...] Encounter Note - Beth Early LPN - 08/31/2024 8:38 AM EDT Pt is already scheduled for new OB documented in this encounter Plan of Treatment Upcoming Encounters Date Type Department Care Team (Late st Contact Info) Description 01/15/2025 10:30 AM EDT Routine [facility] [place] [facility] [address] [facility] [place] [address] Apurva Sainz, PJ [address] [place] [address] 01/31/2025 3:50 PM EDT Office Visit [facility] [place] [facility] [address] [place] [address] Whit Lucero PA [address] [place] [address] documented as of this encounter Visit Diagnoses Not on filedocumented in this encounter Care Teams Medicare Biller Relationship Specialty Start Date End Date Emery Flood MD [address] [place] [address] PCP - General Kraft Mill Operator 03/20/24 documented as of this encounter
--- OUTSIDE RECORDS SUMMARY | 2025-01-09 09:57 | XMS_ITS | Encounter Summary ---
Author Organization [facility] Address [address] [place] [address] Care Team Providers Care De Icer Element Winder Name Role Phone Emery Flood MD Primary Care Provider Encounter Details Date Type Department Care Team (Late st Contact Info) Description 09/11/2024 Orders Only TAY [facility] [address] [place] [address] [place] [address] Maria D Willoughby LPN [address] [facility] [place] [place] [address] Social History Tobacco Use Types Packs/Day Years [...] 01/15/2025 10:30 AM EDT Routine [facility] [address] [place] [address] Apurva Sainz, PJ [address] [facility] [place] [phone] 01/31/2025 3:50 PM EDT Office Visit [facility] [place] [facility] [address] [place] [address] Whit Lucero PA [address] [place] [address] documented as of this encounter Procedures Procedure Name Priority Date/Time Associated Diagnosis Comments PAP SMEAR Routine 08/28/2024 12:00 AM EDT documented in this encounter Results * Pap Smear (08/28/2024 12:00 AM EDT) Swab Cervical swab / Unknown us Lalitha Nurse [facility] LAB CYTOLOGY ORDERABLES Final Result EXTERNAL LAB documented in this encounter Visit Diagnoses Not on filedocumented in this encounter Care Teams De Icer Element Winder Relationship Specialty Start Date End Date Emery Flood MD [address] [place] [address] PCP - General Private Inquiry Agent 03/20/24 documented as of this encounter
[2025-01-09 10:09] VITALS: BP 116/64; PULSE 81; TEMP 36.9
[2025-01-09 10:28] LABS: Glucose Urine UA NEGATIVE (NEGATIVE)
[2025-01-09 10:47] LABS: Cast Seen? NONE SEEN #/LPF (NONE SEEN); Crystals Seen? None Seen #/HPF (None Seen); Urine Culture Indicated YES-LC
== END 2025-01-09 11:10 | disposition home or self-care (01) ==
PROVIDERS: Admitting Provider Obstetrics & Gynecology; PCP Family Medicine; Visit Provider Obstetrics & Gynecology
DX: O36.8120 Decreased fetal movements, second trimester, not applicable or unspecified (principal); Z3A.23 23 weeks gestation of pregnancy; O99.891 Other specified diseases and conditions complicating pregnancy; R10.12 Left upper quadrant pain
CPT/HCPCS: 59025; 81001; 87086; G0378; G0379

== ENCOUNTER 2025-01-22 10:44 | Outpatient (OUT) | payer OTHER, SELFPAY ==
--- OUTSIDE RECORDS SUMMARY | 2025-01-15 10:30 | XMS_ITS | Encounter Summary ---
Author Organization [facility] Address [address] [place] [address] Care Team Providers Care Rn Transitional Care Name Role Phone Emery Flood MD Primary Care Provider [phone] Reason for Visit * Reason Comments Routine Visit Encounter Details Date Type Department Care Team ([facility] Contact Info) Description 01/15/2025 10:30 AM EDT Routine [facility] [place] [facility] [address] [facility] [place] [address] Apurva Sainz, PJ [address] [facility] [place] [address] 24 weeks gestation of ([facility]); Second trimester ([facility]); Diabetes mellitus screening; Pruritus Social History Tobacco Use Types Packs/Day Years [...] PM EDT documented as of this encounter Last Filed Vital Signs Vital Sign Reading Time Taken Comments Blood Pressure 124/80 01/15/2025 10:35 AM EDT Pulse - - Temperature - - Respiratory Rate - - Oxygen Saturation - - Inhaled Oxygen Concentration - - Weight 85 kg (187 lb 6.4 oz) 01/15/2025 10:35 AM EDT Height - - Body Mass Index 32.17 08/24/2023 9:07 AM EDT documented in this encounter Progress Notes * Apurva Sainz NP - 01/15/2025 10:30 AM EDT Reason for Appointment: Patient ID: Jyoti Torres is a 24 y.o. female who presents for Routine Visit Patient presents today for Return OB appointment. MEDICATIONS No current outpatient medications ALLERGIES No Known Allergies PROBLEMS Active Ambulatory Problems Diagnosis Date Noted Missed menses 08/30/2024 Amenorrhea 09/14/2024 Encounter for supervision of normal first in first trimester ([facility]) 09/14/2024 Vasovagal episode 10/16/2024 Resolved Ambulatory Problems Diagnosis Date Noted No Resolved Ambulatory Problems Past Medical History: Diagnosis Date Positive urine test ([facility]) HISTORY PAST MEDICAL HISTORY SOCIAL HISTORY Past Medical History: Diagnosis Date Positive urine test ([facility]) Social History Tobacco Use Smoking status: Not [...] Negative. Genitourinary: Negative. Musculoskeletal: Negative. Skin: Negative. Complaints of itching to feet, hands, and arms Neurological: Negative. All other systems reviewed and are negative. Hematological: Negative. Endocrine: Negative. Allergic/Immunologic: Negative. OBJECTIVE Objective: Physical Exam Constitutional: Appearance: Normal appearance. She is well-developed. Cardiovascular: Rate and Rhythm: Normal rate and regular rhythm. Pulmonary: Effort: Pulmonary effort is normal. Breath sounds: Normal breath sounds. Abdominal: General: Bowel sounds are normal. There is no distension. Palpations: Abdomen is soft. Tenderness: There is no abdominal tenderness. There is no guarding or rebound. Musculoskeletal: General: No swelling. Normal range of motion. Right lower leg: No edema. Left lower leg: No edema. Neurological: Mental Status: She is alert and oriented to person, place, and time. Skin: General: Skin is warm and dry. Psychiatric: Mood and Affect: Mood normal. Behavior: Behavior normal. Vitals and nursing note reviewed. Exam conducted with a senior bi architect present. Vitals: Estimated body mass index is 32.17 kg/m?? as calculated from the following: Height as of 08/24/23: 5' 4 . Weight as of this encounter: 187 lb 6.4 oz. BP: 124/80 Patient's last menstrual period was 06/27/2024. ASSESSMENT & PLAN ICD-10-CM 1. 24 weeks gestation of ([facility]) Z3A.24 POCT urinalysis dipstick manually resulted 2. Second trimester ([facility]) Z34.92 3. Diabetes mellitus screening Z13.1 CBC Glucose tolerance, 1 hour CBC Glucose tolerance, 1 hour 4. Pruritus L29.9 Hepatitis C antibody Hepatic function panel TSH Bile acids, total CBC and differential Hepatitis C antibody Hepatic function panel TSH Bile acids, total CBC and differential Return OB: Patient presents today for a routine obstetrics appointment. Patient is currently 24w3d . Patient states she is doing well but has complaints of being tired due to current . Patient has verbalizes frequent movement. labor precautions was discussed/given and patient was instructed to perform kick counts three times a day. Orders Placed This Encounter Procedures CBC Glucose tolerance, 1 hour Hepatitis C antibody Hepatic function panel TSH Bile acids, total CBC and differential POCT urinalysis dipstick manually resulted Follow Up: Patient is to return to office in 3 week for routine OB appointment. Patient with complaints of itching to hands, feet and arms. Will obtain baseline labs for cholestasis. Documented by Auprva Sainz NP on behalf of: Apurva Sainz NP documented in this encounter Plan of Treatment Upcoming Encounters Date Type Department Care Team (Late st Contact Info) Description 01/31/2025 3:50 PM EDT Office Visit [facility] [address] [place] [phone] Whit Lucero PA [address] [place] [phone] 02/06/2025 9:20 AM EDT Routine [facility] [address] [facility] [place] [place] [address] Sunshine Mclean PA [address] [facility] [place] [address] Scheduled Orders Name Type Priority Associated Diagnoses Orde r Schedule CBC Lab Routine Diabetes mellitus screening Expected: 01/15/2025 (Approximate), Expires: 01/15/2026 Glucose tolerance, 1 hour Lab Routine Diabetes mellitus screening Expected: 01/15/2025 (Approximate), Expires: 01/15/2026 Hepatitis C antibody Lab Routine Pruritus Expected: 01/15/2025 (Approximate), Expires: 01/15/2026 Hepatic function panel Lab Routine Pruritus Expected: 01/15/2025 (Approximate), Expires: 01/15/2026 TSH Lab Routine Pruritus Expected: 01/15/2025 (Approximate), Expires: 01/15/2026 Bile acids, total Lab Routine Pruritus Expected: 01/15/2025 (Approximate), Expires: 01/15/2026 CBC and differential Lab Routine Pruritus Expected: 01/15/2025 (Approximate), Expires: 01/15/2026 documented as of this encounter Procedures Procedure Name Priority Date/Time Associated Diagnosis Comments POCT URINALYSIS DIPSTICK Routine 01/15/2025 10:43 AM EDT 24 weeks gestation of ([facility]) documented in this encounter Results * (ABNORMAL) POCT urinalysis dipstick manually resulted (01/15/2025 10:43 AM EDT) Color, UA Yellow Clarity, UA Clear Glucose, UA Negative Negative - 2000(110) ++++ mg/dL Bilirubin, UA Negative Negative - 4(70) +++ mg/dL Ketones, UA Negative Negative - 160(16) ++++ mg/dL Spec Grav, UA 1.015 1 - 1.03 Blood, UA Negative Negative - 50 Edin/mcL pH, UA 6.5 5 - 9 Protein, UA Negative Negative - 1999(20) ++++ mg/dL Urobilinogen, UA 2.0 0.2 - 12 mg/dL Leukocytes, UA 1+ Negative - 500+++ Tiffany/mcL Nitrite, UA Negative Negative - Positive Urine 01/15/2025 10:4 3 AM EDT Apurva Sainz ABORIGINAL EDUCATION WORKER COORDINATOR POINT OF CARE TEST ENTER/EDIT ORDERABLES Final Result documented in this encounter Visit Diagnoses Diagnosis 24 weeks gestation of ([facility]) Second trimester ([facility]) state, incidental Diabetes mellitus screening Screening for diabetes mellitus Pruritus Unspecified pruritic disorder documented in this encounter Care Teams Rn Transitional Care Relationship Specialty Start Date End Date Emery Flood MD [address] [place] [address] PCP - General Apartment Maintenance 03/20/24 documented as of this encounter
--- OUTSIDE RECORDS SUMMARY | 2025-01-22 10:48 | XMS_ITS | Clinical Summary ---
Author Organization [facility] Address [address] [place] [address] Care Team Providers Care Agricultural Extension Specialist Name Role Phone Emery Flood MD Primary Care Provider Allergies No known active allergies Medications No known medications Active Problems Problem Noted Date Diagnosed Date Vasovagal episode 10/16/2024 Amenorrhea 09/14/2024 Encounter for supervision of normal first in first trimester ([facility]) 09/14/2024 Missed menses 08/30/2024 Estimated Date of Delivery Comme nts Yes 05/04/2025 Based on Ultraso und Encounters Date Type Department Care Team Description 01/15/2025 10:30 AM EDT Routine TAY [facility] [address] [place] [address] [place] [address] Apurva Sainz NP 24 weeks gestation of ([facility]); Second trimester ([facility]); Diabetes mellitus screening; Pruritus 01/15/2025 Bamboo flowsheet [facility] [address] [place] [address] [place] [address] Apurva Sainz NP 01/08/2025 Travel 12/17/2024 9:20 AM EDT Routine TAY [facility] [address] [place] [address] [place] [address] Apurva Sainz NP Second trimester ([facility]); 20 weeks gestation of ([facility]); Vasovagal episode 12/17/2024 8:00 AM EDT Ancillary Procedure [facility]ogenes [facility] [address] Screening, , for anatomic survey ([facility]) 12/10/2024 Travel 11/15/2024 [address] [facility] [place] [address] Christina Hua MA 11/13/2024 11:00 AM EDT Routine TAY [facility] [address] Sunshine Mclean PA Second trimester ([facility]); 15 weeks gestation of ([facility]); Vasovagal episode; Need for maternal serum alpha-protein (MSAFP) screening ([facility]); Screening, , for anatomic survey ([facility]) 11/12/2024 Travel 11/05/2024 3:20 PM EDT Routine TAY [facility] [address] Sunshine Mclean PA Second trimester ([facility]); 14 weeks gestation of ([facility]); Vasovagal symptom; Screen for STD (sexually transmitted disease); Yeast infection 11/05/2024 Bamboo flowsheet NOMDiogenes L[facility]pez [facility] [place] [address] Sunshine Mclean PA 11/03/2024 Travel from Last 3 Months Social History [...] 6.4 oz) 01/15/2025 10:35 AM EDT Height 162.6 cm (5' 4 ) 08/24/2023 9:07 AM EDT Body Mass Index 32.17 08/24/2023 9:07 AM EDT Plan of Treatment Upcoming Encounters Date Type Department Care Team (Late st Contact Info) Description 01/31/2025 3:50 PM EDT Office Visit [facility] [address] [place] [address] Whit Lucero PA [address] [place] [address] 02/06/2025 9:20 AM EDT Routine T[facility] [place] [facility] [address] [facility] [place] [address] Sunshine Mclean PA [address] [facility] [place] [address] Procedures Procedure Name Priority Date/Time Associated Diagnosis Comments POCT URINALYSIS DIPSTICK Routine 01/15/2025 10:43 AM EDT 24 weeks gestation of ([facility]) POCT URINALYSIS DIPSTICK Routine 12/17/2024 9:15 AM EDT Second trimester ([facility]) OB 14+ WEEKS ANATOMY SCAN Routine 12/17/2024 8:58 AM EDT Screening, , for anatomic survey ([facility]) POCT URINALYSIS DIPSTICK Routine 11/13/2024 11:21 AM EDT Second trimester ([facility]) RECURRENT VAGINITIS (HTRX) Routine 11/05/2024 4:23 PM EDT POCT URINALYSIS DIPSTICK Routine 11/05/2024 3:45 PM EDT Second trimester ([facility]) from Last 3 Months Results * (ABNORMAL) POCT urinalysis dipstick manually resulted (01/15/2025 10:43 AM EDT) Only the most recent of4 resultswithin the time period is included. Color, UA Yellow Clarity, UA Clear Glucose, UA Negative Negative - 1999(110) ++++ mg/dL Bilirubin, UA Negative Negative - [...] 01/15/2025 10:4 3 AM EDT Apurva Sainz NP POINT OF CARE TEST [...] RECURRENT VAGINITIS (HTRX) (11/05/2024 4:23 PM EDT) [facility] ATOPOBIUM VAGINAE 0 19.961 - 24.689 ppm 11/07/2024 6:18 AM EDT [facility] ATOPOBIUM VAGINAE Not Detected 19.961 - 24.689 ppm 11/07/2024 6:18 AM EDT [facility] BVAB 2,3 (BACTERIAL VAGINOSIS ASSOCIATED BACTERIA 2, 3); MOBILUNCUS SPP 0 19.961 - 24.689 ppm 11/07/2024 6:18 AM EDT [facility] (BACTERIAL VAGINOSIS ASSOCIATED BACTERIA 2, 3); MOBILUNCUS SPP Not Detected 19.961 - 24.689 ppm 11/07/2024 6:18 AM EDT [facility] VAN ALBICANS, PARAPSILOSIS, TROPICALIS 0 23.000 - 30.347 ppm 11/07/2024 6:18 AM EDT [facility] VAN ALBICANS, PARAPSILOSIS, TROPICALIS Not Detected 23.000 - 30.347 ppm 11/07/2024 6:18 AM EDT [facility] VAN GLABRATA 0 23.000 - 31.618 ppm 11/07/2024 6:18 AM EDT [facility] VAN GLABRATA Not Detected 23.000 - 31.618 ppm 11/07/2024 6:18 AM EDT [facility] VAN KRUSEI 0 23.000 - 30.873 ppm 11/07/2024 6:18 AM EDT [facility] VAN KRUSEI Not Detected 23.000 - 30.873 ppm 11/07/2024 6:18 AM EDT [facility] CHLAMYDIA TRACHOMATIS 0 23.000 - 31.586 ppm 11/07/2024 6:18 AM EDT [facility] CHLAMYDIA TRACHOMATIS Not Detected 23.000 - 31.586 ppm 11/07/2024 6:18 AM EDT [facility] GARDNERELLA VAGINALIS 0 19.961 - 24.689 ppm 11/07/2024 6:18 AM EDT [facility] GARDNERELLA VAGINALIS Not Detected 19.961 - 24.689 ppm 11/07/2024 6:18 AM EDT [facility] MEGASPHAERA (TYPES 1, 2) 0 19.961 - 24.689 ppm 11/07/2024 6:18 AM EDT [facility] MEGASPHAERA (TYPES 1, 2) Not Detected 19.961 - 24.689 ppm 11/07/2024 6:18 AM EDT [facility] NEISSERIA GONORRHOEAE 0 23.000 - 32.587 ppm 11/07/2024 6:18 AM EDT [facility] NEISSERIA GONORRHOEAE Not Detected 23.000 - 32.587 ppm 11/07/2024 6:18 AM EDT [facility] TRICHOMONAS VAGINALIS 0 23.000 - 31.995 ppm 11/07/2024 6:18 AM EDT [facility] TRICHOMONAS VAGINALIS Not Detected 23.000 - 31.995 ppm 11/07/2024 6:18 AM EDT [facility] MYCOPLASMA GENITALIUM 0 19.961 - 24.689 ppm 11/07/2024 6:18 AM EDT [facility] MYCOPLASMA GENITALIUM Not Detected 19.961 - 24.689 ppm 11/07/2024 6:18 AM EDT [facility] Tissue 11/05/2024 4:23 PM EDT 11/07/2024 1:21 AM EDT us Sunshine [facility]AO LAB BLOOD ORDERABLES Final Resul t [facility] [address] [address] from Last 3 Months Insurance [employer] Care Teams Agricultural Extension Specialist Relationship Specialty Start Date End Date Emery Flood MD [address] [place] [address] PCP - General Lab Instructor 03/20/24
--- OUTSIDE RECORDS SUMMARY | 2025-01-22 10:48 | XMS_ITS | Encounter Summary ---
Author Organization [facility] Address [address] [place] [address] Care Team Providers Care Set Decorator Name Role Phone Emery Flood MD Primary [...] Dermatology [address] [place] [address] Whit Lucero PA [address] [place] [address] 02/06/2025 9:20 AM EDT Routine T[facility] [place] [facility] [address] [facility] [place] [address] Sunshine Mclean PA [address] [facility] [place] [address] documented as of this encounter Visit Diagnoses Not on filedocumented in this encounter Care Teams Set Decorator Relationship Specialty Start Date End Date Emery Flood MD [address] [place] [address] PCP - General Supervisor Roller Printing 03/20/24 documented as of this encounter
--- OUTSIDE RECORDS SUMMARY | 2025-01-22 10:48 | XMS_ITS | Encounter Summary ---
Author Organization [facility] Address [address] [facility] [place] [address] Care Team Providers Care Railroad Car Painter Name Role Phone Emery Flood MD Primary Care Provider Encounter Details Date Type Department Care Team (Late Contact Info) Description 08/29/2024 Results Follow-Up [facility] [address] [facility] [place] [address] Beth Early LPN [address] [place] [address] RECURRENT VAGINITIS (HTRX) Social History Tobacco Use [...] Encounters Date Type Department Care Team (Late Contact Info) Description 01/31/2025 3:50 PM EDT Office Visit [facility] [place] [facility] [address] [place] [address] Whit Lucero PA [address] [place] [address] 02/06/2025 9:20 AM EDT Routine [facility] [place] [facility] [address] [facility] [place] [address] Sunshine Mclean PA [address] [facility] [address] [place], [place] [id number] documented as of this encounter Visit Diagnoses Not on filedocumented in this encounter Care Teams Railroad Car Painter Relationship Specialty Start Date End Date Emery Flood MD [address] [place] [address] PCP - General Clinical Application Specialist 03/20/24 documented as of this encounter
--- OUTSIDE RECORDS SUMMARY | 2025-01-22 10:48 | XMS_ITS | Encounter Summary ---
Author Organization [facility] Address [address] [place] [address] Care Team Providers Care Lunchroom Operator Name Role Phone Emery Flood MD Primary Care Provider Encounter Details Date Type Department Care Team (Late st Contact Info) Description 08/31/2024 Results Follow-Up [facility] [place] [facility] [address] [facility] [place] [phone] Beth Early LPN [address] [place] [address] [facility] Social History Tobacco [...] [address] [place] [address] Whit Lucero PA [address] [place] [address] 02/06/2025 9:20 AM EDT Routine NOMDiogenes [place] [facility] [address] [facility] [place] [address] Sunshine Mclean PA [address] [facility] [address] [place], [place] [id number] documented as of this encounter Visit Diagnoses Not on filedocumented in this encounter Care Teams Lunchroom Operator Relationship Specialty Start Date End Date Emery Flood MD [address] [place] [address] PCP - General Corporate Representative 03/20/24 documented as of this encounter
--- OUTSIDE RECORDS SUMMARY | 2025-01-22 10:48 | XMS_ITS | Encounter Summary ---
Author Organization [facility] Address [address] [place] [address] Care Team Providers Care Panelboard Tank Pumper Name Role Phone Emery Flood MD Primary Care Provider Encounter Details Date Type Department Care Team (Late st Contact Info) Description 09/11/2024 Orders Only [facility] [place] [facility] [address] [place] [address] Maria D Willoughby LPN [address] [place] [id number] Social History Tobacco Use Types Packs/Day Years [...] [address] [place] [address] Whit Lucero PA [address] [place] [address] 02/06/2025 9:20 AM EDT Routine [facility] [address] [facility] [place] [address] Sunshine Mclean PA [address] [place] [address] documented as of this encounter Procedures Procedure [...] on filedocumented in this encounter Care Teams Panelboard Tank Pumper Relationship Specialty Start Date End Date Emery Flood MD [address] [place] [address] PCP - General Airplane Pilot Helper 03/20/24 documented as of this encounter
--- OUTSIDE RECORDS SUMMARY | 2025-01-22 10:48 | XMS_ITS | Clinical Summary ---
Author Organization [facility] Address [address] [facility], [address] [place] [address] Care Team Providers Care Cook Barbecue Name Role Phone Emery Flood DO Primary Care Provider Allergies No known active [...] place to sleep or slept in a fdc (including now)? No 09/29/2023 Food Insecurity Answer [...] patient's age to complete this topic Insurance [employer] JOZEF Care Teams Cook Barbecue Relationship Specialty Start Date End Date Emery Flood DO [address] [place] [address] PCP - General Family Medicine 09/29/23
--- OUTSIDE RECORDS SUMMARY | 2025-01-22 10:48 | XMS_ITS | Encounter Summary ---
Author Organization [facility] Address [address] [place] [address] Care Team Providers Care Institution Librarian Name Role Phone Emery Flood MD Primary Care Provider Encounter Details Date Type Department Care Team (Late st Contact Info) Description 10/09/2024 Abstract [facility] [place] [facility] [address] [facility] [place] [address] Morro Doty DO [address] [facility] [address] [place], [facility] Social History Tobacco Use Types Packs/Day Years [...] Dermatology [address] [place] [address] Whit Lucero PA [address] [place] [address] 02/06/2025 9:20 AM EDT Routine [facility] Krystle [facility] [address] [facility] [place] [address] Sunshine Mclean PA [address] [facility] [address] [place], [place] [phone] documented as of this encounter Visit Diagnoses Not on filedocumented in this encounter Care Teams Institution Librarian Relationship Specialty Start Date End Date Emery Flood MD [address] [place] [address] PCP - General Sign Poster 03/20/24 documented as of this encounter
--- OUTSIDE RECORDS SUMMARY | 2025-01-22 10:48 | XMS_ITS | Encounter Summary ---
Author Organization [facility] Address [address] [place] [address] Care Team Providers Care Winch Driver Name Role Phone Emery Flood MD Primary Care Provider Encounter Details Date Type Department Care Team (Late Contact Info) Description 01/15/2025 Bamboo flowsheet [facility] [place] [facility] [address] [place] [address] Apurva Sainz, PJ [address] [place] [address] Social History Tobacco Use Types Packs/Day Years [...] [address] [place] [address] Whit Lucero PA [address] [place] [address] 02/06/2025 9:20 AM EDT Routine [facility] [address] [place] [address] Sunshine Mclean PA [address] [facility] [address] [place], [place] [id number] documented as of this encounter Visit Diagnoses Not on filedocumented in this encounter Care Teams Winch Driver Relationship Specialty Start Date End Date Emery Flood MD [address] [place] [address] PCP - General Casing Crew 03/20/24 documented as of this encounter
--- OUTSIDE RECORDS SUMMARY | 2025-01-22 10:48 | XMS_ITS | Encounter Summary ---
Author Organization [facility] Address [address] [place] [address] Care Team Providers Care Route Sales Delivery Driver Name Role Phone Emery Flood MD Primary Care Provider Encounter Details Date Type Department Care Team (Late st Contact Info) Description 11/15/2024 Abstract [facility] [place] [address] Christina Hua MA Social History Tobacco [...] Dermatology [address] [place] [address] Whit Lucero PA [address] [place] [address] 02/06/2025 9:20 AM EDT Routine [facility] [address] [place] [address] Sunshine Mclean PA [address] [facility] [place] [address] documented as of this encounter Visit Diagnoses Not on filedocumented in this encounter Care Teams Route Sales Delivery Driver Relationship Specialty Start Date End Date Emery Flood MD [address] [place] [address] PCP - General Podiatric Surgeon 03/20/24 documented as of this encounter
--- OUTSIDE RECORDS SUMMARY | 2025-01-22 10:51 | XMS_ITS | CCD ---
Author Organization [facility] CliniSyor Care Team Providers Care Clipper Counters Name Role Phone Community, Outreach Attending Provider NO FAMILY, PHYSICIAN Primary Care Provider Unava ilable Community, Outreach Attending Unavailable Community, Outreach Admitting Unavailable NO FAMILY, PHYSICIAN Primary Care Unavailable LALITHA ., DR BALL Consulting Unavailable LALITHA ., DR BALL Admitting Unavailable REQUEST, DR NONE LISTED Primary Care Unavaila ble LALITHA ., DR BALL Attending Unavailable LALITHA ., DR BALL Admitting Unavailable REQUEST, DR NONE LISTED Primary Care Unavaila ble LALITHA ., DR BALL Attending Unavailable LALITHA ., DR BALL Consulting Unavailable ZIEBER, DR ANTHONY oRyal Consulting Unavailable DO Tuan Lovell Attending Unavailable Moses Smith Attending Unavailable MD Kai Mcrae Admitting Unavaila ble Anthony Flood Consulting Unavailable OxfordAnthony Consulting Unavailable OxfordAnthony tristan Consulting Unavailable Anthony Flood Consulting Unavailable Anthony Flood Consulting Unavailable Anthony Flood Consulting Unavailable Anthony Flood Consulting Unavailable OxfordAnthony Consulting Unavailable OxfordAnthony Consulting Unavailable [facility] [place] [facility], XXXX Consulting Unavailable Jenna BA Primary Care Physician Irasema Franco Unavailable Unavailable Kai Mcrae Admitting Unavailable BetaarielleorBenjamin Consulting Unavailable Moses Smith Attending Unavailable Benjamin Flores Consulting Unavailable Benjamin Flores Consulting Unavailable Anthony Flood Consulting Unavailable MD Anthony Flood Unavailable OxfordAnthony Consulting Unavailable OxfordAtnhony Consulting Unavailable OxfordAnthony Consulting Unavailable OxfordAnthony Consulting Unavailable [place], Anthony Consulting Unavailable Oxford, Anthony Consulting Unavailable Oxford, Anthony Consulting Unavailable [facility] [place] [facility], XXXX Consulting Unavailable MD Kai Mcrae Admitting Unavaila Jenna Greco DO Primary Care Provider JENNA BA Attending Unavailable JENNA BA Referring Unavailable JENNA BA Primary Care Unavailable Jenna Ba MD Primary Care Provider SUNSHINE DING Attending Unavailable SUNSHINE DING Referring Unavailable MORRO DOTY Attending Unavailable SUNSHINE DING Attending Unavailable SUNSHINE DING Attending Unavailable EMELI, WALTER Attending Unavailable EMELI, WALTER Attending Unavailable Problems Active Problems Problem Classification Problem Date Documented Date Episodic/Chronic Cardiac dysrhythmias (2 sources) Palpitations; Translations: [Palpitations] Onset: 06-04-2024 06-04-2024 Episodic Diseases of white blood cells (1 source) Leukocytosis; Translations: [Elevated white blood cell count, unspecified] Onset: 03-12-2024 Chronic Immunizations and screening for infectious disease (3 sources) Encounter for screening for human papillomavirus (HPV); Translations: [Patient encounter status] Onset: 05-30-2022 11-05-2024 Episodic Menstrual disorders (20 sources) Irregular menstruation, unspecified; Translations: [Missed period] Onset: 05-13-2022 08-28-2024 Chronic Mycoses (2 sources) Mycosis; Translations: [Candidiasis, unspecified] 11-05-2024 Episodic Nonspecific chest pain (1 source) Chest wall [...] [POLYCYSTIC OVARIAN SYNDROME] Onset: 05-12-2022 Chronic Other inflammatory condition of skin (2 sources) Pruritus, unspecified; Translations: [Unspecified pruritic disorder] 01-15-2025 Episodic Other nutritional; endocrine; and metabolic disorders (1 source) Body mass index 30+ - obesity 08-12-2020 Chronic Other nutritional; endocrine; and metabolic disorders (1 source) Simple obesity 08-12-2020 Chronic Other nutritional; endocrine; and metabolic disorders (1 source) Obesity; Translations: [Obesity, unspecified] Onset: 08-18-2020 08-18-2020 Chronic Other and delivery including normal (20 sources) ; Translations: [Encounter for supervision of normal , unspecified, unspecified trimester] Onset: 09-14-2024 09-14-2024 Episodic Other screening for suspected conditions (not mental disorders or infectious disease) (10 sources) Encounter for screening for malignant neoplasm of cervix; Translations: [Alpha-fetoprotein blood test status] Onset: 05-26-2022 Episodic Residual codes; unclassified (1 source) Gestation period, 6 weeks; Translations: [Less than 8 weeks gestation of ] 09-14-2024 Episodic Residual codes; unclassified (2 sources) Gestation period, 11 weeks; Translations: [11 weeks gestation of ] 10-16-2024 Episodic Residual codes; unclassified (2 sources) Gestation period, 14 weeks; Translations: [14 weeks gestation of ] 11-05-2024 Episodic Residual codes; unclassified (2 sources) Gestation period, 15 weeks; Translations: [15 weeks gestation of ] 11-13-2024 Episodic Residual codes; unclassified (2 sources) Gestation period, 20 weeks; Translations: [20 weeks gestation of ] 12-17-2024 Episodic Residual codes; unclassified (2 sources) Gestation period, 24 weeks; Translations: [24 weeks gestation of ] 01-15-2025 Episodic Unclassified (1 source) Patient encounter status [...] [Eructation] Onset: 08-18-2020 Resolved: 03-15-2024 03-10-2020 Episodic Syncope (20 sources) Syncope and collapse; Translations: [Syncope and collapse] Onset: 03-12-2024 Episodic Results Test Name Value Interpretation Reference Range Facility Urinalysis macro (dipstick) panel (U)on 01-15-2025 Bilirubin, UA Negative Negative - 4(70) +++ mg/dL [facility] Blood, UA Negative Negative - 50 Edin/mcL [facility] Clarity, UA Clear [facility] Color, UA Yellow [facility] Glucose, UA Negative Negative - 1999(110) ++++ mg/dL [facility] Interpretation and review of laboratory results Abnormal [facility] Ketones, UA Negative Negative - 160(16) ++++ mg/dL [facility] Leukocytes, UA 1+ Negative - 500+++ Tiffany/mcL [facility] Nitrite, UA Negative Negative - Positive [facility] pH, UA 6.5 5 - 9 [facility] Protein, UA Negative Negative - 2000(20) ++++ mg/dL [facility] Spec Grav, UA 1.015 1 - 1.03 [facility] Urobilinogen, UA 2.0 0.2 - 12 mg/dL [facility] US OB 14+ WEEKS ANATOMY SCAN on 12-17-2024 US OB 14+ WEEKS ANATOMY SCAN FINDINGS: A single, live intrauterine is present [...] BY: ELECTRONICALLY SIGNED BY: Live Hernandez MD Normal Not Available Comment on above: Order Comment: US OB ANATOMY SINGLE W US OB CERVICAL LENGTH Estimated Date of Delivery: 05/04/25 Gestational Age as of 11/13/2024: 15w3d Urinalysis macro (dipstick) panel (U)on 12-17-2024 Bilirubin, UA Negative Negative - 4(70) +++ mg/dL [facility] Blood, UA Negative Negative - 50 Edin/mcL [facility] Clarity, UA Clear [facility] Color, UA Yellow [facility] Glucose, UA Negative Negative - 1999(110) ++++ mg/dL [facility] Interpretation and review of laboratory results Abnormal [facility] Ketones, UA Negative Negative - 160(16) ++++ mg/dL [facility] Leukocytes, UA 3+ Negative - 500+++ Tiffany/mcL [facility] Nitrite, UA Negative Negative - Positive [facility] pH, UA 6 5 - 9 [facility] Protein, UA Negative Negative - 1999(20) ++++ mg/dL [facility] Spec Grav, UA 1.015 1 - 1.03 [facility] Urobilinogen, UA 1.0 0.2 - 12 mg/dL [facility] Healthcare Urinalysis macro (dipstick) panel (U)on 11-13-2024 Bilirubin, UA Negative Negative - 4(70) +++ mg/dL [facility] Blood, UA Negative Negative - 50 Edin/mcL [facility] Clarity, UA Clear [facility] Color, UA Yellow [facility] Glucose, UA Negative Negative - 1999(110) ++++ mg/dL [facility] Interpretation and review of laboratory results Normal [facility] Ketones, UA Negative Negative - 160(16) ++++ mg/dL [facility] Leukocytes, UA 1+ Negative - 500+++ Tiffany/mcL [facility] Nitrite, UA Negative Negative - Positive [facility] pH, UA 6.5 5 - 9 [facility] Protein, UA Negative Negative - 1999(20) ++++ mg/dL [facility] Spec Grav, UA 1.015 1 - 1.03 [facility] Urobilinogen, UA 1.0 0.2 - 12 mg/dL [facility] Urinalysis macro (dipstick) panel (U)on 11-05-2024 Bilirubin, UA Negative Negative - 4(70) +++ mg/dL [facility] Blood, UA Negative Negative - 50 Edin/mcL [facility] Clarity, UA Clear [facility] Color, UA Yellow [facility] Glucose, UA Negative Negative - 1999(110) ++++ mg/dL [facility] Interpretation and review of laboratory results Normal [facility] Ketones, UA Negative Negative - 160(16) ++++ mg/dL [facility] Leukocytes, UA Negative Negative - 500+++ Tiffany/mcL [facility] Nitrite, UA Negative Negative - Positive [facility] pH, UA 6 5 - 9 [facility] Protein, UA Negative Negative - 1999(20) ++++ mg/dL [facility] Spec Grav, UA 1.01 1 - 1.03 [facility] Urobilinogen, UA 0.2 0.2 - 12 mg/dL [facility] Urinalysis macro (dipstick) panel (U)on 10-16-2024 Bilirubin, UA Negative Negative - 4(70) +++ mg/dL [facility] Blood, UA Negative Negative - 50 Edin/mcL [facility] Clarity, UA Clear [facility] Color, UA Yellow [facility] Glucose, UA Negative Negative - 1999(110) ++++ mg/dL [facility] Interpretation and review of laboratory results Normal [facility] Ketones, UA Negative Negative - 160(16) ++++ mg/dL [facility] Leukocytes, UA Negative Negative - 500+++ Tiffany/mcL [facility] Nitrite, UA Negative Negative - Positive [facility] pH, UA 8 5 - 9 [facility] Protein, UA Negative Negative - 1999(20) ++++ mg/dL [facility] Spec Grav, UA 1.01 1 - 1.03 [facility] Urobilinogen, UA 0.2 0.2 - 12 mg/dL [facility] ALL CBC WITH AUTO DIFFon BASOPHILS ABSOLUTE AUTO 0.1 N [facility] Basophils/100 WBC (Bld) 0.5 % 0.2 - 2.0 % [facility] Eosinophils/100 WBC (Bld) 1.3 % 0.9 - 7.0 % [facility] Erythrocyte distribution width (RBC) [Ratio] 11.9 % 11.0 - 15.0 % [facility] Hematocrit (Bld) [Volume fraction] 38.6 % 36.0 - 48.0 % [facility] Hemoglobin (Bld) [Mass/Vol] 12.9 g/dL 12.0 - 16.0 g/dL [facility] IMMATURE GRANULOCYTES ABS AUTO 0.03 [facility] Immature granulocytes/100 WBC (Bld) 0.2 % 0.0 - 0.5 % [facility] Interpretation and review of laboratory results Abnormal [facility] LYMPHOCYTES ABSOLUTE AUTO 2.9 [facility] Lymphocytes/100 WBC (Bld) 23.1 % 20 .5 - 60.0 % [facility] MCH (RBC) [Entitic mass] 31.4 pg 26. 7 - 34.0 pg [facility] MCHC (RBC) [Mass/Vol] 33.4 g/dL 29.9 - 35.2 g/dL [facility] MCV (RBC) [Entitic vol] 93.9 fL 81.0 - 99.0 fL [facility] MONOCYTES ABSOLUTE AUTO 0.8 N [facility] Monocytes/100 WBC (Bld) 6.5 % 1.7 - 12.0 % [facility] NEUTROPHILS ABSOLUTE AUTO 8.7 High [facility] Neutrophils/100 WBC (Bld) 68.4 % 43 .0 - 75.0 % [facility] Platelet mean volume (Bld) [Entitic vol] 9.9 fL 9.5 - 13.5 fL [facility] TBH EO # 0.2 [facility]H PLT 223 [facility] RBC 4.11 Low [facility] WBC 12.7 High [facility] HCG ( test) Ql (U)o n 09-14-2024 Interpretation and review of laboratory results Abnormal [facility] Preg Test, Ur Positive Negative [facility] US OB TRANSVAGINALon [address] [address] Ultrasound Report Signed Patient: JYOTI TORRES MR#: [id number] : 2000 Acct:[id number] Age/Sex: 23 / F ADM Date: 09/14/24 Loc: US Attending Dr: Morro Doty D.O. Ordering Physician: Morro Doty D.O. Date of Service: 09/14/24 Procedure(s): US OB transvaginal Accession Number(s): [id number] cc: Morro Doty D.O.; JENNA BA [place] [address] Patient Name: JYOTI TORRES MRN: [id number] date: 2000 Sex: F Assigned Patient Location: US Current Patient Location: US Accession/Order Number: [id number] Exam Date: 09/14/2024 11:08 Report Date: 09/14/2024 11:11 At the request of: MORRO DOTY DO Procedure: US OB transvaginal ULTRASOUND OB TRANSVAGINAL COMPARISON: None CLINICAL DATA: Missed menses. Assessment of the pelvis was performed utilizing a transvaginal approach. There is a gestational sac within the uterus. A yolk sac and pole are visualized. The crown-rump length measurement of 8.6 mm correlates with an ultrasound age of 6 weeks 6 days. The estimated date of delivery is May 04, 2025 . There is cardiac activity with heart rate of 159 bpm. The cervix is closed and estimated at 3.3 cm in length. Both ovaries are visualized. The right measures 3.3 x 2.9 x 2.1 cm . The left ovary measures 3.5 x 2.8 x 3.2 cm. No adnexal cysts are present. There appears to be a small amount of free fluid at posterior cul-de-sac. US/US OB transvaginal IMPRESSION: SINGLE LIVE INTRAUTERINE GESTATION WITH ULTRASOUND AGE OF 6 WEEKS 6 DAYS Impression dictated by: Анна Sherwood M.D. 09/14/2024 11:11 AM Dictation Location: [place] [address] Electronically authenticated by: [id number] Y Date: 09/14/2024 11:11 Dictated By: Анна Sherwood M.D. Signed By: 09/14/24 1114 DD/ 1111 TD/TT: Uncrater: [facility] Radiology, Radiologist, MD - 09/14/2024 [place] [address] Ultrasound Report Signed Patient: JYOTI TORRES MR#: [id number] : 2000 Acct:[id number] Age/Sex: 23 / F ADM Date: 09/14/24 Loc: US Attending Dr: Morro Doty D.O. Ordering Physician: Morro Doty D.O. Date of Service: 09/14/24 Procedure(s): US OB transvaginal Accession Number(s): [id number] cc: Morro Doty D.O.; JENNA BA [place] [id number] Patient Name: JYOTI TORRES MRN: [facility]:[id number] date: 2000 Sex: F Assigned Patient Location: US Current Patient Location: US Accession/Order Number: [id number] Exam Date: 09/14/2024 11:08 Report Date: 09/14/2024 11:11 At the request of: MORRO DOTY DO Procedure: US OB transvaginal ULTRASOUND OB TRANSVAGINAL COMPARISON: None CLINICAL DATA: Missed menses. Assessment of the pelvis was performed utilizing a transvaginal approach. There is a gestational sac within the uterus. A yolk sac and pole are visualized. The crown-rump length measurement of 8.6 mm correlates with an ultrasound age of 6 weeks 6 days. The estimated date of delivery is May 04, 2025 . There is cardiac activity with heart rate of 159 bpm. The cervix is closed and estimated at 3.3 cm in length. Both ovaries are visualized. The right measures 3.3 x 2.9 x 2.1 cm . The left ovary measures 3.5 x 2.8 x 3.2 cm. No adnexal cysts are present. There appears to be a small amount of free fluid at posterior cul-de-sac. US/US OB transvaginal IMPRESSION: SINGLE LIVE INTRAUTERINE GESTATION WITH ULTRASOUND AGE OF 6 WEEKS 6 DAYS Impression dictated by: Анна Sherwood M.D. 09/14/2024 11:11 AM Dictation Location: [place] [address] Electronically authenticated by: [id number] Y Date: 09/14/2024 11:11 Dictated By: Анна Sherwood M.D. Signed By: 09/14/24 1114 DD/ 1111 TD/TT: Uncrater: [facility] Radiology Study observation (narrative) [facility] US OB TRANSVAGINALOrdered By : Radiologist Radiology on 09-14-2024 [facility] Work Phone: US OB TRANSVAGINALon 025 US OB TRANSVAGINAL EXAM: US OB TRANSVAGINAL HISTORY: Dating. COMPARISON: [...] II, MD, PHD at 31-Aug-2024 12:18:24 PM [facility] Normal Not Available Comment on above: Order Comment: US OB TRANSVAGINAL No LMP recorded (within months). RECURRENT VAGINITIS (HTRX)on 08-29-2024 ATOPOBIUM VAGINAE 0 [facility] ATOPOBIUM VAGINAE Not detected [facility] BVAB 2,3 (BACTERIAL VAGINOSIS ASSOCIATED BACTERIA 2, 3); MOBILUNCUS SPP 0 [facility] BVAB 2,3 (BACTERIAL VAGINOSIS ASSOCIATED BACTERIA 2, 3); MOBILUNCUS SPP Not detected [facility] VAN ALBICANS, PARAPSILOSIS, TROPICALIS 26.742 Abnormal [facility] VAN ALBICANS, PARAPSILOSIS, TROPICALIS Detected Abnormal [facility] VAN GLABRATA 0 [facility] VAN GLABRATA Not detected [facility] VAN KRUSEI 0 [facility] VAN KRUSEI Not detected [facility] CHLAMYDIA TRACHOMATIS 0 [facility] CHLAMYDIA TRACHOMATIS Not detected N [facility] GARDNERELLA VAGINALIS 0 [facility] GARDNERELLA VAGINALIS Not detected [facility] Interpretation and review of laboratory results Abnormal [facility] MEGASPHAERA (TYPES 1, 2) 0 [facility] MEGASPHAERA (TYPES 1, 2) Not detected [facility] MYCOPLASMA GENITALIUM 0 [facility] MYCOPLASMA GENITALIUM Not detected N [facility] NEISSERIA GONORRHOEAE 0 [facility] NEISSERIA GONORRHOEAE Not detected N [facility] TRICHOMONAS VAGINALIS 0 [facility] TRICHOMONAS VAGINALIS Not detected N [facility] HCG ( test) Ql (U)o n 08-28-2024 Interpretation and review of laboratory results Abnormal [facility] Preg Test, Ur Positive Negative [facility]H PREG QUANT HCGon 025 HCG QUANTITATIVE 495 mIU/mL [facility] Comment on above: 5-50 0.2-1 WEEK 50-500 1-2 WEEKS 100-5,000 2-3 WEEKS 500-10,000 3-4 WEEKS 1,000-50,000 4-5 WEEKS 10,000-100,000 5-6 WEEKS 15,000-200,000 6-8 WEEKS 10,000-100,000 2-3 MONTHS [facility] Cortisolon 03-14-2024 Cortisol [Mass/Vol] 11.0 microgram/dL Invalid Interpretation Code 6.2-19.4 [facility] Comment on above: Result Comment: Beny escalona Note: The reference interval and flagging for this test is for an AM collection. If this is a PM collection please use: Cortisol PM: 2.3-11.9 Performed at: [address] [id number] PhD Gilles López Performed By: #### 2 [id number] #### [facility] [address] [place] [address] BMPon 03-13-2024 Anion gap [Moles/Vol] 8 mmol/L Normal 6-16 [facility] Comment on above: Performed By: #### 2 [id number] #### [facility] [address] [place] [address] Calcium [Mass/Vol] 8.3 mg/dL Low 8.9-11.1 [facility] Comment on above: Performed By: #### 2 [id number] #### [facility] [address] [place] [address] Chloride [Moles/Vol] 109 mmol/L Normal 101-111 [facility] Comment on above: Performed By: #### 2 [id number] #### [facility] [address] [place] [address] CO2 [Moles/Vol] 27 mmol/L Normal 21-31 [facility] Comment on above: Performed By: #### 2 [id number] #### [facility] [address] [place] [address] Creatinine [Mass/Vol] 0.5 mg/dL Normal 0.5-1.3 [facility] Comment on above: Performed By: #### 2 [id number] #### [facility] [address] [place] [address] Glucose [Mass/Vol] 104 mg/dL Normal 55-199 [facility] Comment on above: Performed By: #### 2 [id number] #### [facility] [address] [facility] [place] [address] Potassium [Moles/Vol] 4.0 mmol/L Normal 3.5-5.3 [facility] Comment on above: Performed By: #### 2 [id number] #### [facility] [address] [place] [address] Sodium [Moles/Vol] 140 mmol/L Normal 135-145 [facility] Comment on above: Performed By: #### 2 [id number] #### [facility] [address] [place] [address] Urea nitrogen [Mass/Vol] 10 mg/dL Normal 5-21 [facility] Comment on above: Performed By: #### 2 [id number] #### [facility] [address] [place] [address] Urea nitrogen/Creatinine [Mass ratio] 20 No Units Normal 10-20 [facility] Comment on above: Performed By: #### 2 [id number] #### [facility] [address] [place] [address] CBC w/ Auto Diffon 4 Basophils/100 WBC (Bld) 0.8 % Normal 0.0-2.0 [facility] Comment on above: Performed By: #### 2 [id number] #### [facility] [address] [place] [address] Basophils/Leukocytes Auto (Bld) [Pure # fraction] 0.1 E9/L Normal 0.0-0.2 [facility] Comment on above: Performed By: #### 2 [id number] #### [facility] [address] [place] [address] Eosinophils (Bld) [#/Vol] 0.2 E9/L Normal 0.0-0.5 [facility] Comment on above: Performed By: #### 2 [id number] #### [facility] [address] [place] [address] Eosinophils/100 WBC (Bld) 3.6 % Normal 0.0-8.0 [facility] Comment on above: Performed By: #### 2 [id number] #### [facility] [address] [place] [address] Erythrocyte distribution width (RBC) [Ratio] 12.6 % Normal 10.9-14.2 [facility] Comment on above: Performed By: #### 2 [id number] #### [facility] [address] [place] [address] Hematocrit (Bld) [Volume fraction] 35.7 % Normal 34.0-46.0 [facility] Comment on above: Performed By: #### 2 [id number] #### [facility] [address] [place] [address] Hemoglobin (Bld) [Mass/Vol] 12.6 g/dL Normal 12.0-16.0 [facility] Comment on above: Performed By: #### 2 [id number] #### [facility] [address] [place] [address] Lymphocytes (Bld) [#/Vol] 2.1 E9/L Normal 1.0-4.0 [facility] Comment on above: Performed By: #### 2 [id number] #### [facility] [address] [place] [address] Lymphocytes/100 WBC (Bld) 30.7 % Normal 14.0-50.0 [facility] Comment on above: Performed By: #### 2 [id number] #### [facility] [address] [place] [address] MCH (RBC) [Entitic mass] 32.9 pg Normal 27.0-34.0 [facility] Comment on above: Performed By: #### 2 [id number] #### [facility] [address] [place] [address] MCHC (RBC) [Mass/Vol] 35.3 g/dL Normal 31.4-36.0 [facility] Comment on above: Performed By: #### 2 [id number] #### [facility] [address] [place] [address] MCV (RBC) [Entitic vol] 93.4 fL Normal 80.0-100.0 [facility] Comment on above: Performed By: #### 2 [id number] #### [facility] [address] [place] [address] Monocytes (Bld) [#/Vol] 0.6 E9/L Normal 0.2-1.0 [facility] Comment on above: Performed By: #### 2 [id number] #### [facility] [address] [place] [address] Neutrophils (Bld) [#/Vol] 3.9 E9/L Normal 2.0-7.5 [facility] Comment on above: Performed By: #### 2 [id number] #### [facility] [address] [place] [address] Neutrophils/100 WBC (Bld) 55.7 % Normal 36.0-75.0 [facility] Comment on above: Performed By: #### 2 [id number] #### [facility] [address] [place] [address] Platelet 225.0 E9/L Normal 150.0-500.0 [facility] Comment on above: Performed By: #### 2 [id number] #### [facility] [address] [place] [address] Platelet mean volume (Bld) [Entitic vol] 7.8 fL Normal 6.4-10.8 [facility] Comment on above: Performed By: #### 2 [id number] #### [facility] [address] [place] [address] RBC (Bld) [#/Vol] 3.8 E12/L Low 4.3-5.9 [facility] Comment on above: Performed By: #### 2 [id number] #### [facility] [address] [place] [address] WBC corrected for nucl RBC Auto (Bld) [#/Vol] 7.0 E9/L Normal 4.0-11.0 [facility] Comment on above: Performed By: #### 2 [id number] #### [facility] [address] [place] [address] CHEMISTRYOrdered By: SYSTEM SYSTEM on 03-13-2024 Anion [...] - Remigio RIZVI, Anthony Flores MD, Benjamin [facility] Cardio, XXXX Reason for Your Visit abdomenal [...] with a neurologist as well as a pension administrator. 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 Where: [address] [address]- Follow Up with Jenna BA When: 03/15/2024 09:45 AM EST Where: [address] [facility] [place] [phone] Business (1) Follow Up with Mark RIZVI, [...] after you (more content not included)... Normal [facility] HEMATOLOGYOrdered By: SYSTEM SYSTEM on 03-13-2024 Basophils/100 [...] 03-13-2024 Inpatient Clinical Summary Inpatient Clinical Summary [address] [address] Clinical Summary Person Information: Name: JYOTI TORRES Age: 23 Years : 2000 Sex: Female PCP: Jenna BA DO Marital Status: Race: White Ethnicity: Non- or Language: Setswana Visit Id: Visit Reason: Abdominal pain; ABD PAIN /PASSED OUT Speciality: Acuity: Enc Type: Observation Med Service: Medical Arrival: 03/12/2024 05:43:15 Discharge: Dispo Type: Admitted as IP to this Hosp Address: [address] [place], [place] [id number] Provider Notes: Diagnosis: 1:Syncope; 2:Postural orthostatic tachycardia [...] Smith DO Consulting Physician: Benjamin Flores MD; Anthony Flood MD; [facility] Cardio, XXXX Referring Physician: Follow up: With: Address: When: Jenna BA [address] [facility] [place] [phone] [facility] (1) 03/15/2024 9:45 AM With: Address: When: Anthony Flood MD, KYLAH [place] [address] [place] [address] 03/28/2024 1:40 PM Comments: 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 With: Address: When: Benjamin Flores MD, CAR Within 2 to 4 weeks Comments: Call for followup appointment Patient Education Information: Postural Orthostatic Tachycardia Syndrome; Orthostatic Hypotension; Near-Syncope, Ldea-tm-Ujuq Normal [facility] Inpatient Patient Summaryon 03-13-2024 Inpatient Patient Summary Inpatient Mikaela ent Summary [address] [address] Patient Discharge Instructions PERSON INFORMATION Name: JYOTI TORRES Date of : 2000 Current Date: 03/13/2024 12:34:22 PHYSICIANS Admitting Physician: Kai Mcrae MD Primary Care Physician: Jenna BA DO PCP Phone Number: [phone] Comment: Discharge Diagnosis: 1:Syncope; 2:Postural orthostatic tachycardia [...] with a neurologist as well as a pension administrator. Primary Care Physician to provide the following pending test results: None Follow up: With: Address: When: Jenna BA [address] [place] [phone] (1) 03/15/2024 9:45 AM With: Address: When: Remigio RIZVI, [facility] [address] [place] [address] 03/28/2024 1:40 PM Comments: Will being Hue [...] with POTS. (more content not included)... Normal [facility] Interdisciplinary Note - Zenon e Manageron 03-13-2024 Interdisciplinary Note - Repair Electric Motor Assembler Interdisciplinary Note - Repair Electric Motor Assembler CRM to room 327 Patient is awake, alert and oriented. Patient is from home with her spouse. He is her ride at [place]. He is present in room. Patient verified [...] HH care. Patient was provided CRM contact, darryl board updated. CRM following Dc date TBD Normal [facility] Comment on above: Result Comment: Elec tronically Signed By: Radha Trevino\.br\Date and Time Signed: 03/13/24 09:28 EST TSH With T4fr Reflexon 03-13 TSH Qn 5.22 m[IU]/L Normal 0.34-5.60 [facility] Comment on above: Performed By: #### 1 [id number] #### [facility] [address] [place] [address] eGFRon 03-13-2024 eGFR 133 mL/min/1.73 m2 Normal >=59 [facility] Comment on above: Performed By: #### 1 [id number] #### [facility] [address] [place] [address] BMPon 03-12-2024 Anion gap [Moles/Vol] 9 mmol/L Normal 6-16 [facility] Comment on above: Performed By: #### 2 [id number] #### [facility] [address] [place] [address] Calcium [Mass/Vol] 9.0 mg/dL Normal 8.9-11.1 [facility] Comment on above: Performed By: #### 2 [id number] #### [facility] [address] [place] [address] Chloride [Moles/Vol] 106 mmol/L Normal 101-111 [facility] Comment on above: Performed By: #### 2 [id number] #### [facility] [address] [place] [address] CO2 [Moles/Vol] 27 mmol/L Normal 21-31 [facility] Comment on above: Performed By: #### 2 [id number] #### [facility] [address] [place] [address] Creatinine [Mass/Vol] 0.6 mg/dL Normal 0.5-1.3 [facility] Comment on above: Performed By: #### 2 [id number] #### [facility] [address] [place] [address] Glucose [Mass/Vol] 108 mg/dL Normal 55-199 [facility] Comment on above: Performed By: #### 2 [id number] #### [facility] [address] [place] [address] Potassium [Moles/Vol] 3.9 mmol/L Normal 3.5-5.3 [facility] Comment on above: Performed By: #### 2 [id number] #### [facility] [address] [place] [address] Sodium [Moles/Vol] 138 mmol/L Normal 135-145 [facility] Comment on above: Performed By: #### 2 [id number] #### [facility] [address] [place] [address] Urea nitrogen [Mass/Vol] 11 mg/dL Normal 5-21 [facility] Comment on above: Performed By: #### 2 [id number] #### [facility] [address] [place] [address] Urea nitrogen/Creatinine [Mass ratio] 18 No Units Normal 10-20 [facility] Comment on above: Performed By: #### 2 [id number] #### [facility] [address] [place] [address] CBC w/ Auto Diffon 4 Basophils/100 WBC (Bld) 0.2 % Normal 0.0-2.0 [facility] Comment on above: Performed By: #### 2 [id number] #### [facility] [address] [place] [address] Basophils/Leukocytes Auto (Bld) [Pure # fraction] 0.0 E9/L Normal 0.0-0.2 [facility] Comment on above: Performed By: #### 2 [id number] #### [facility] [address] [place] [address] Eosinophils (Bld) [#/Vol] 0.1 E9/L Normal 0.0-0.5 [facility] Comment on above: Performed By: #### 2 [id number] #### [facility] [address] [place] [address] Eosinophils/100 WBC (Bld) 0.6 % Normal 0.0-8.0 [facility] Comment on above: Performed By: #### 2 [id number] #### [facility] [address] [place] [address] Erythrocyte distribution width (RBC) [Ratio] 12.5 % Normal 10.9-14.2 [facility] Comment on above: Performed By: #### 2 [id number] #### [facility] [address] [place] [address] Hematocrit (Bld) [Volume fraction] 40.5 % Normal 34.0-46.0 [facility] Comment on above: Performed By: #### 2 [id number] #### [facility] [address] [place] [address] Hemoglobin (Bld) [Mass/Vol] 13.7 g/dL Normal 12.0-16.0 [facility] Comment on above: Performed By: #### 2 [id number] #### [facility] [address] [place] [address] Lymphocytes (Bld) [#/Vol] 1.7 E9/L Normal 1.0-4.0 [facility] Comment on above: Performed By: #### 2 [id number] #### [facility] [address] [place] [address] Lymphocytes/100 WBC (Bld) 10.6 % Low 14.0-50.0 [facility] Comment on above: Performed By: #### 2 [id number] #### [facility] [address] [place] [address] MCH (RBC) [Entitic mass] 31.4 pg Normal 27.0-34.0 [facility] Comment on above: Performed By: #### 2 [id number] #### [facility] [address] [place] [address] MCHC (RBC) [Mass/Vol] 33.8 g/dL Normal 31.4-36.0 [facility] Comment on above: Performed By: #### 2 [id number] #### [facility] [address] [place] [address] MCV (RBC) [Entitic vol] 92.9 fL Normal 80.0-100.0 [facility] Comment on above: Performed By: #### 2 [id number] #### [facility] [address] [place] [address] Monocytes (Bld) [#/Vol] 0.9 E9/L Normal 0.2-1.0 [facility] Comment on above: Performed By: #### 2 [id number] #### [facility] [address] [place] [address] Neutrophils (Bld) [#/Vol] 13.5 E9/L High 2.0-7.5 [facility] Comment on above: Performed By: #### 2 [id number] #### [facility] [address] [place] [address] Neutrophils/100 WBC (Bld) 82.9 % High 36.0-75.0 [facility] Comment on above: Performed By: #### 2 397656 #### [facility] [address] [place] [address] Platelet 245.0 E9/L Normal 150.0-500.0 [facility] Comment on above: Performed By: #### 2 [id number] #### [facility] [address] [place] [address] Platelet mean volume (Bld) [Entitic vol] 7.6 fL Normal 6.4-10.8 [facility] Comment on above: Performed By: #### 2 [id number] #### [facility] [address] [place] [address] RBC (Bld) [#/Vol] 4.4 E12/L Normal 4.3-5.9 [facility] Comment on above: Performed By: #### 2 [id number] #### [facility] [address] [place] [address] WBC corrected for nucl RBC Auto (Bld) [#/Vol] 16.3 E9/L High 4.0-11.0 [facility] Comment on above: Performed By: #### 2 [id number] #### [facility] [address] [place] [address] CHEMISTRYOrdered By: SYSTEM SYSTEM on 03-12-2024 Albumin [...] Instructions For Use, Robin Ibrahima, November 2017) Urea nitrogen [Mass/Vol] 11 mg/dL [...] ml's: 100 Rectal Contrast Given? No Normal [facility] ED Clinical Summaryon 2023 ED Clinical Summary ED Clinical Summary [place] [address] ED Clinical Summary Person Information Name: JYOTI TORRES [place] Age: 23 Years : 2000 Sex: Female Language: Setswana PCP: Jenna BA DO Marital Status: Visit Id: Visit Reason: Abdominal pain; ABD PAIN /PASSED OUT Speciality: Acuity: 3 Enc Type: Observation Med Service: Medical Arrival: 03/12/2024 05:43:15 Discharge: LOS: 000 07:16 Checkin: 03/12/2024 05:43:15 Checkout: 03/12/2024 12:59:23 Dispo Type: Admitted as IP to this [facility] EVENTS: Event Name Event Status Request [...] 03/12/2024 12:07:26 Lab Request 03/12/2024 12:07:26 ADDRESS: [address] [place] [id number] PHYS DOC NOTES: Addendum by Earl Foote DO on March 12, 2024 10:27:34 EST MEDICAL INFORMATION: Prescriptions Given: Medications to Continue with No Changes Other Medications ethinyl estradiol-levonorgest rel (Balcoltra) By Mouth every day. PATIENT EDUCATION INFORMATION: Instructions: Follow up: DIAGNOSIS: 1:Syncope; 2:Postural orthostatic tachycardia syndrome [POTS]; 3:Orthostatic syncope; 4:Abdominal pain, acute; 5:Hypotension; 6:Leukocytosis Normal [facility] ED Note-Physicianon 03-12-20 ED Note-Physician ED Note-Physician Basic Information Time Seen: Liliya Juanmercedes Marmolejo 03/12/2024 05:48 Chief Complaint abd pain starting [...] and Complexity of Problems Differential Diagnosis: [] [facility] Data External documents reviewed: [] My [...] Lymph Auto: 10.6 % Low (03/12/24 06:09:00) [place] Auto: 5.7 % (03/12/24 06:09:00) Eos Auto: 0.6 % (03/12/24 06:09:00) Basophil Auto: 0.2 % (03/12/24 06:09:00) Neutro Absolute: 13.5 E9/L High (03/12/24 06:09:00) Lymph Absolute: 1.7 E9/L (03/12/24 06:09:00) [place] Absolute: 0.9 E9/L (03/12/24 06:09:00) Eos Absolute: 0.1 E9/L (03/12/24 06:09:00) Basophil Absolute: 0 E9/L (03/12/24 06:09:00) Gl (more content not included)... Normal [facility] Comment on above: Result Comment: Elec tronically [...] and Complexity of Problems Differential Diagnosis: [] [facility] Data External documents reviewed: [] My [...] Lymph Auto: 10.6 % Low (03/12/24 06:09:00) [place] Auto: 5.7 % (03/12/24 06:09:00) Eos Auto: 0.6 % (03/12/24 06:09:00) Basophil Auto: 0.2 % (03/12/24 06:09:00) Neutro Absolute: 13.5 E9/L High (03/12/24 06:09:00) Lymph Absolute: 1.7 E9/L (03/12/24 06:09:00) [place] Absolute: 0.9 E9/L (03/12/24 06:09:00) Eos Absolute: 0.1 E9/L (03/12/24 06:09:00) Basophil Absolute: 0 E9/L (03/12/24 06:09:00) Gl (more content not included)... Normal [facility] Comment on above: Result Comment: Elec tronically Signed By: Tuan Lovell DO\.br\Date and Time Signed: 03/12/24 06:46 EST ED Patient Education Noteon 03-12-2024 ED Patient Education Note ED Patient Edu cation Note Normal [facility] ED Patient Summaryon ED Patient Summary ED Patient Summary [address] [address] Patient Discharge Instructions Person Information Name: JYOTI TORRES Age: 23 Years Arrival Date: 03/12/2024 05:43:15 Discharge Diagnosis: 1:Syncope; 2:Postural orthostatic tachycardia syndrome [POTS]; 3:Orthostatic syncope; 4:Abdominal pain, acute; 5:Hypotension; 6:Leukocytosis Primary Care Physician: Jenna BA DO Provider Information Primary Provider: Tuan Lovell DO Advanced Railroad Switchman:None The exam and treatment you received in the Emergency Department were for an urgent problem and are not intended as complete care. It is important that you follow up with a doctor, nurse practitioner, or physician???s language assistant for ongoing care. If your symptoms [...] opioids can be used to help relieve odvyrlnw-vf-gynemc pain and are often prescribed following a [...] be struggling with addiction, tell your health home care physical therapist and ask for guidance or call [facility] National He (more content not included)... Normal [facility] Extra Blueon 03-12-2024 Tube Collected Plasma Yes Invalid Interpretation Code [facility] Comment on above: Performed By: #### 1 [id number] #### [facility] [address] [place] [address] HEMATOLOGYOrdered By: SYSTEM SYSTEM on 03-12-2024 Basophils/100 [...] 03-12-2024 Albumin [Mass/Vol] 4.1 g/dL Normal 3.3-5.0 [facility] Comment on above: Performed By: #### 2 [id number] #### [facility] [address] [place] [address] Albumin/Globulin (S) [Mass conc ratio] 1.5 Normal 1.1-2.2 [facility] Comment on above: Performed By: #### 2 [id number] #### [facility] [address] [place] [address] ALP [Catalytic activity/Vol] 38 Int._Unit/L Normal 21-98 [facility] Comment on above: Performed By: #### 2 [id number] #### [facility] [address] [place] [address] ALT No additional P-5'-P [Catalytic activity/Vol] 14 Int._Unit/L Normal 6-46 [facility] Comment on above: Performed By: #### 2 [id number] #### [facility] [address] [place] [address] AST [Catalytic activity/Vol] 16 Int._Unit/L Normal 5-43 [facility] Comment on above: Performed By: #### 2 [id number] #### [facility] [address] [place] [address] Bilirubin [Mass/Vol] 0.7 mg/dL Normal 0.0-1.1 [facility] Comment on above: Performed By: #### 2 [id number] #### [facility] [address] [place] [address] Bilirubin.direct [Mass/Vol] 0.1 mg/dL Normal 0.0-0.4 [facility] Comment on above: Performed By: #### 2 [id number] #### [facility] [address] [place] [address] Bilirubin.indirect [Mass or moles/Vol] 0.6 mg/dL Normal 0.1-0.9 [facility] Comment on above: Performed By: #### 2 [id number] #### [facility] [address] [place] [address] Globulin (S) [Mass/Vol] 2.8 g/dL Normal 1.4-4.0 [facility] Comment on above: Performed By: #### 2 [id number] #### [facility] [address] [place] [address] Protein [Mass/Vol] 6.9 g/dL Normal 6.0-7.8 [facility] Comment on above: Performed By: #### 2 [id number] #### [facility] [address] [place] [address] Interdisciplinary Note - Zenon e Manageron 03-12-2024 Interdisciplinary Note - Repair Electric Motor Assembler Interdisciplinary Note - Repair Electric Motor Assembler CRM to room 327 Patient is a new admission Nursing is doing her admit at this time. CRM will see patient on 03/13 Normal [facility] Comment on above: Result Comment: Elec tronically Signed By: Radha Trevino\.br\Date and Time Signed: 03/12/24 13:56 EST Lipase Levelon 03-12-2024 Lipase [Catalytic activity/Vol] 19 U/L Normal 13-58 [facility] Comment on above: Performed By: #### 2 [id number] #### [facility] [address] [place] [address] SEROLOGYOrdered By: Leyla Mercer on 03-12-2024 HCG.beta subunit (U) [Moles/Vol] Negative Normal [facility] Man Sero Troponin 0 Hr.on 03-12-2024 Troponin HS <2.30 Low 10.10-27.10 [facility] Comment on above: Result Comment: The 95% CI (Confidence Interval) PPV (Positive Predictive Value) for myocardial infarction in females is 38 pg/mL, in males 51 pg/mL. The results should be used in conjunction with clinical conditions of myocardial infarction. (Access High Sensitivity Troponin I Instructions For Use, Robin Ibrahima, November 2017) Performed By: #### 1 [id number] #### [facility] [address] [place] [address] U BetaHcg Qualon 03-12-2024 HCG.beta subunit (U) [Moles/Vol] Negative Normal [facility] Comment on above: Performed By: #### 2 [id number] #### [facility] [address] [place] [address] UA with Cult Rflxon 03-12-20 24 Bacteria Auto Ql (U) Trace Normal Trace Fish [facility] Comment on above: Performed By: #### 4 [id number] #### [facility] [address] [place] [address] Bilirubin Ql (U) Negative Normal Negative [facility] Comment on above: Performed By: #### 4 [id number] #### [facility] [address] [place] [address] Clarity (U) Clear Normal Clear [facility] Comment on above: Performed By: #### 4 [id number] #### [facility] [address] [place] [address] Color (U) Yellow Normal Yellow [facility] Comment on above: Result Comment: Micr oscopic readings are only performed on those samples that meet specific criteria set forth by [facility]. Performed By: #### 4 [id number] #### [facility] [address] [place] [address] Epithelial cells.squamous Auto (Urine sed) [#/Area] 3-4 Invalid Interpretation Code [facility] Comment on above: Performed By: #### 4 [id number] #### [facility] [address] [place] [address] Glucose Ql (U) Negative Normal Negative [facility] Comment on above: Performed By: #### 4 [id number] #### [facility] [address] [place] [address] Hemoglobin Auto test strip (U) [Mass/Vol] Negative Normal Negative [facility] Comment on above: Performed By: #### 4 [id number] #### [facility] [address] [place] [address] Ketones Auto test strip Ql (U) Negative Normal Negative [facility] Comment on above: Performed By: #### 4 [id number] #### [facility] [address] [place] [address] Leukocyte esterase Auto test strip Ql (U) Negative Normal Negative [facility] Comment on above: Performed By: #### 4 [id number] #### [facility] [address] [place] [address] Mucus Auto Ql (U) Trace Normal Negative [facility] Comment on above: Performed By: #### 4 [id number] #### [facility] [address] [place] [address] Nitrite Auto test strip Ql (U) Negative Normal Negative [facility] Comment on above: Performed By: #### 4 [id number] #### [facility] [address] [place] [address] pH (U) 8.5 [pH] Invalid Interpretation Code 5.0-9.0 [facility] Comment on above: Performed By: #### 4 [id number] #### [facility] [address] [place] [address] Protein Ql (U) 1+ mg/dL Abnormal Negative [facility] Comment on above: Performed By: #### 4 [id number] #### [facility] [address] [place] [address] RBC Ql (U) 0-3 Normal 0-3 [facility] Comment on above: Performed By: #### 4 [id number] #### [facility] [address] [place] [address] Specific gravity (U) [Rel density] 1.017 Invalid Interpretation Code 1.005-1.030 [facility] Comment on above: Performed By: #### 4 [id number] #### [facility] [address] [place] [address] Urobilinogen (U) [Mass/Vol] Negative Normal Negative [facility] Comment on above: Performed By: #### 4 [id number] #### [facility] [address] [place] [address] WBC Auto (Urine sed) [#/Area] 0-5 Normal 0-5 [facility] Comment on above: Performed By: #### 4 [id number] #### [facility] [address] [place] [address] Type of Urine collection method Clean Catch Normal [facility] Comment on above: Performed By: #### 4 [id number] #### [facility] [address] [place] [address] URINALYSISOrdered By: SYSTEM SYSTEM on 03-12-2024 Bacteria Auto Ql (U) Trace /HPF Normal Trace/HPF FT UA Auto SS Bilirubin Ql (U) Negative Normal Negativemg/ dL FT UA Auto SS Clarity (U) Clear (03/12/24 6:09 AM) Normal Clear [facility] UA Auto SS Color (U) Yellow 1 (03/12/24 6:09 AM) Normal Yellow [facility] UA Auto SS Comment on above: Interpretive Data: M icroscopic readings are only performed on those samples that meet specific criteria set forth by [facility]. Epithelial cells.squamous Auto (Urine sed) [#/Area] 3-4 graded/HPF Invalid Interpretation Code [facility] UA Auto SS Glucose Ql (U) Negative Normal Negativemg/ dL [facility] Auto SS Hemoglobin Auto test strip (U) [Mass/Vol] Negative Normal Negativemg/ dL [facility] UA Auto SS Ketones Auto test strip Ql (U) Negative Normal Negativemg/ dL [facility] UA Auto SS Leukocyte esterase Auto test strip Ql (U) Negative Normal NegativeLeu /uL [facility] UA Auto SS Mucus Auto Ql (U) Trace graded/LPF Normal Negati vegra ded/LPF [facility] UA Auto SS Nitrite Auto test strip Ql (U) Negative Normal Negativemg/ dL [facility] UA Auto SS pH (U) 8.5 *NA* (03/12/24 6:09 AM) Invalid Interpretation Code 5.0 - 9.0 [facility] [place] Auto SS Protein Ql (U) 1+ mg/dL Invalid Interpretation Code Negativemg/ dL [facility] [place] [facility] Auto SS RBC Ql (U) 0-3 graded/HPF Normal 0-3graded/H PF [facility] [place] [facility] Auto SS Specific gravity (U) [Rel density] 1.017 *NA* (03/12/24 6:09 AM) Invalid Interpretation Code 1.005 - 1.030 [facility] [place] [facility] Auto SS Urobilinogen (U) [Mass/Vol] Negative Normal Negativemg/ dL [facility] [place] [facility] Auto SS WBC Auto (Urine sed) [#/Area] 0-5 graded/HPF Normal 0-5graded/H PF [facility] [place] [facility]A Auto SS URINALYSISOrdered By: Karmen Lovell on 03-12-2024 UA Spec Desc Clean Catch (03/12/24 6:09 AM) Normal [facility] [place] [facility]A Auto SS Work Phone: [place] Pelvis [...] FINAL REPORT Dictated: 03/12/2024 8:37 am Sean Baltzaar MD Signed (Electronic Signature): 03/12/2024 8:37 am Signed by: Sean Baltazar MD Transcribed by: JEREMIAH Technologist: CHELY Technical Comments Transabdominal Ultrasound Performed Normal [facility] eGFRon 03-12-2024 eGFR 127 mL/min/1.73 m2 Normal >=59 [facility] Comment on above: Performed By: #### 1 [id number] #### [facility] [address] [place] [address] PAP ACOG PANEL 2: 21 to 29on 06-03-2022 . . Normal [facility] Comment on above: Performed By: #### 4 [id number] #### [facility] [address] [address] [address] Vernon Merino Age Gdln ACOG Testing - [facility] Comment on above: Performed By: #### 4 [id number] #### [facility] [address] [address] [address] Vernon Merino DIAGNOSIS: Comment [facility] Comment on above: Result Comment: NEGA TIVE FOR INTRAEPITHELIAL LESION OR MALIGNANCY. Performed By: #### 4 [id number] #### [facility] [address] [address] [address] Vernon Merino Methodology: Comment [facility] Comment on above: Result Comment: This liquid based ThinPrep(R) pap test was screened with the use of an image guided system. Performed By: #### 4 [id number] #### [facility] [address] [address] [address] Vernon Merino Note: Comment [facility] Comment on above: Result Comment: The Pap smear is a screening test designed to aid in the detection of premalignant and malignant conditions of the uterine cervix. It is not a diagnostic procedure and should not be used as the sole means of detecting cervical cancer. Both false-positive and false-negative reports do occur. . Performed By: #### 4 [id number] #### [facility] [address] [place] [address] Dr. Vernon Merino Performed by: Comment Normal [facility] Comment on above: Result Comment: Marciano Swann, Inside Sales Supervisor (ASCP) Performed By: #### 4 [id number] #### [facility] [address] [place] [address] Dr. Vernon Merino Reflex Criteria: Comment Normal [facility] Comment on above: Result Comment: The HPV DNA reflex criteria were not met with this specimen result therefore, no HPV testing was performed. . Performed By: #### 4 [id number] #### [facility] [address] [place] [address] Dr. Vernon Merino Specimen adequacy: Comment Normal [facility] Comment on above: Result Comment: Sati sfactory for evaluation. Endocervical and/or squamous metaplastic cells (endocervical component) are present. Performed By: #### 4 [id number] #### [facility] [address] [place] [address] Dr. Vernon Merino DHEA SERUMon 05-17-2022 Dehydroepiandrosterone (DHEA) 633 ng/dL Normal 31-701 [facility] Comment on above: Result Comment: Age 1 - 5 years 0 - 67 6 - 7 years 0 - 110 8 - 10 years 0 - 185 11 - 12 years 0 - 201 13 - 14 years 0 - 318 15 - 16 years 39 - 481 17 - 19 years 40 - 491 >19 years 31 - 701 Performed By: #### D SHALONDA. #### [facility] [address] [place] [address] Dr. Vernon Merino DHEA-SULFATEon 05-13-2022 DHEA-Sulfate 377.0 ug/dL Normal 110.0-431.7 [facility] Comment on above: Performed By: #### D EPI #### [facility] [address] [place] [address] Dr. Vernon Merino FSHon 05-13-2022 FSH 3.7 mIU/mL Normal [facility] Comment on above: Result Comment: Adul t Female: Follicular phase 3.5 - 12.5 Ovulation phase 4.7 - 21.5 Luteal phase 1.7 - 7.7 Postmenopausal 25.8 - 134.8 Performed By: #### [facility] #### [facility] [address] [place] [address] Dr. Vernon Merino LUTEINIZING HORMONE (LH)on 0 05-13-2022 LH 15.3 mIU/mL Normal [facility] Comment on above: Result Comment: Adul t Female: Follicular phase 2.4 - 12.6 Ovulation phase 14.0 - 95.6 Luteal phase 1.0 - 11.4 Postmenopausal 7.7 - 58.5 Performed By: #### L BCL #### [facility] [address] [place] [address] Dr. Vernon Merino PROLACTINon 05-13-2022 Prolactin 12.8 ng/mL Normal 4.8-23.3 [facility] Comment on above: Performed By: #### P ROLAC #### [facility] [address] [place] [address] Dr. Vernon Merino CBC AUTO DIFFon 05-12-2022 BASO # 0.1 103/ul Normal 0.0-0.1 [facility] Comment on above: Performed By: #### C BC ####[facility] [address] [place], [place] [address]Dr. Vernon Merino Basophils/100 WBC (Bld) 1.1 % Normal 0.2-2.0 [facility] Comment on above: Performed By: #### C BC ####[facility] [address] [place], [place] [address]Dr. Vernon Merino EO # 0.1 103/ul Normal 0.0-0.7 [facility] Comment on above: Performed By: #### C BC ####[facility] [address] [place], [place] [address]Dr. Vernon Merino Eosinophils/100 WBC (Bld) 1.6 % Normal 0.9-7.0 [facility] Comment on above: Performed By: #### C BC ####[facility] [address] [address]Dr. Vernon Merino Erythrocyte distribution width (RBC) [Ratio] 12.1 % Normal 11.0-15.0 [facility] Comment on above: Performed By: #### C BC ####[facility] [address] [place], [place] [address]Dr. Vernon Merino Hematocrit (Bld) [Volume fraction] 44.5 % Normal 36.0-48.0 [facility] Comment on above: Performed By: #### C BC ####[facility] [address] [place], [place] [address]Dr. Vernon Merino Hemoglobin (Bld) [Mass/Vol] 14.3 g/dL Normal 12.0-16.0 [facility] Comment on above: Performed By: #### C BC ####[facility] [address] [place], [place] [address]Dr. Vernon Merino IG # 0.01 10e3/ul Normal 0.00-0.03 [facility] Comment on above: Performed By: #### C BC ####[facility] [address] [place], [place] [address]Dr. Vernon Merino IG % 0.2 % Normal 0.0-0.5 [facility] Comment on above: Performed By: #### C BC ####[facility] [address] [place], [place] [address]Dr. Vernon Merino LYMPH # 1.8 103/ul Normal 1.2-3.8 [facility] Comment on above: Performed By: #### C BC ####[facility] [address] [place], [place] [address]Dr. Vernon Merino Lymphocytes/100 WBC (Bld) 29.5 % Normal 20.5-60.0 [facility] Comment on above: Performed By: #### C BC ####[facility] [address] [address]Dr. Vernon Wilber MANUAL DIFF REQ NO Normal [facility] Comment on above: Performed By: #### C BC ####[facility] [address] [address]Dr. Vernon Merino MCH (RBC) [Entitic mass] 30.6 pg Normal 26.7-34.0 [facility] Comment on above: Performed By: #### C BC ####[facility] [address] [place], [place] [address]Dr. Vernon Wilber MCHC (RBC) [Mass/Vol] 32.1 g/dL Normal 29.9-35.2 [facility] Comment on above: Performed By: #### C BC ####[facility] [address] [place], [place] [address]Dr. Vernon Wilber MCV (RBC) [Entitic vol] 95.3 fL Normal 81.0-99.0 [facility] Comment on above: Performed By: #### C BC ####[facility] [address] [place], [place] [address]Dr. Vernon Wilber MONO # 0.5 103/ul Normal 0.3-0.8 [facility] Comment on above: Performed By: #### C BC ####[facility] [address] [place], [place] [address]Dr. Vernon Merino Monocytes/100 WBC (Bld) 8.7 % Normal 1.7-12.0 [facility] Comment on above: Performed By: #### C BC ####[facility] [address] [place], [place] [address]Dr. Demetriayo Wilber NEUT # 3.6 103/ul Normal 1.4-6.5 [facility] Comment on above: Performed By: #### C BC ####[facility] [address] [place], [place] [address]Dr. Vernon Merino Neutrophils/100 WBC (Bld) 58.9 % Normal 43.0-75.0 [facility] Comment on above: Performed By: #### C BC ####[facility] [address] [place], [place] [id number]. Vernon Merino Platelet mean volume (Bld) [Entitic vol] 9.9 fL Normal 9.5-13.5 [facility] Comment on above: Performed By: #### C BC ####[facility] [address] [address]Dr. Vernon Merino PLT 270 103/ul Normal 150-450 [facility] Comment on above: Performed By: #### C BC ####[facility] [address] [address]Dr. Vernon Merino RBC 4.67 106/ul Normal 4.20-5.40 [facility] Comment on above: Performed By: #### C BC ####[facility] [address] [address]Dr. Vernon Merino WBC 6.1 103/ul Normal 4.0-11.0 [facility] Comment on above: Performed By: #### C BC ####[facility] [address] [address]DreHena Merino FREE T4on 05-12-2022 Free T4 [Mass/Vol] 1.10 ng/dL Normal 0.76-1.46 [facility] Comment on above: Performed By: #### F T4 #### [facility] [address] [place] [address] Dr. Vernon Merino GLYCOHEMOGLOBIN A1Con 2022 ADA RECOMMENDATION SEE BELOW Normal [facility] Comment on above: Result Comment: ADA RECOMMENDED LIMIT 4.0 - 6.0 ADA THERAPEUTIC TARGET < 7.0 ACTION SUGGESTED > 7.0 Performed By: #### A 1C #### [facility] [address] [address] [address] Vernon Merino Glucose [Mass/Vol] 105 mg/dL Normal [facility] Comment on above: Performed By: #### A 1C #### [facility] [address] [place] [address] Dr. Vernon Merino HbA1c (Bld) [Mass fraction] 5.3 % Normal 4.5-6.2 [facility] Comment on above: Performed By: #### A 1C #### [facility] [address] [address] [address] Vernon Merino TSHon 05-12-2022 TSH 1.981 uIU/mL Normal 0.358-3.740 [facility] Comment on above: Performed By: #### T SH #### [facility] [address] [address] [address] Vernon Merino US PELVIS AND TRANSVAGon [...] ANTHONY AQUINO Date: 2022-05-12 11:17 Normal [facility] Body fluid albumin measureme nt (mass/volume)Ordered By: OUTREACH COMMUNITY on 03-13-2022 Albumin (Body fld) [Mass/Vol] 4.0 g/dL 3.2-5.5 [facility] CBC Without Differentialon 1 05-14-2021 Erythrocyte distribution width (RBC) [Ratio] 12.9 % Normal 11.9-15.3 [facility] Comment on above: Performed By: #### O BETZAIDA CMP, OUTREACH LIPID, OUTREACH TSH, CBCNOOUTREACH #### [address] Hematocrit (Bld) [Volume fraction] 42.3 % Normal 34.0-46.4 [facility] Comment on above: Performed By: #### O UTREACH CMP, OUTREACH LIPID, OUTREACH TSH, CBCNOOUTREACH #### [address] Hemoglobin (Bld) [Mass/Vol] 14.1 g/dL Normal 11.8-15.4 [facility] Comment on above: Performed By: #### O UTREACH CMP, OUTREACH LIPID, OUTREACH TSH, CBCNOOUTREACH #### [address] MCH (RBC) [Entitic mass] 30.6 pg Normal 24.7-34.3 [facility] Comment on above: Performed By: #### O UTREACH CMP, OUTREACH LIPID, OUTREACH TSH, CBCNOOUTREACH #### [address] MCV (RBC) [Entitic vol] 92.0 fL Normal 80-100 [facility] Comment on above: Performed By: #### O UTREACH CMP, OUTREACH LIPID, OUTREACH TSH, CBCNOOUTREACH #### [address] Mean Corpuscular HGB Conc 33.2 g/dL Normal 32.0-35.0 [facility] Comment on above: Performed By: #### O UTREACH CMP, OUTREACH LIPID, OUTREACH TSH, CBCNOOUTREACH #### [address] Platelet mean volume (Bld) [Entitic vol] 8.6 fL Normal 6.3-10.7 [facility] Comment on above: Result Comment: PERF ORMED BY: [place] [address] PATHOLOGIST [employer] YEN ESCOBAR M.D. Performed By: #### O UTREACH CMP, OUTREACH LIPID, OUTREACH TSH, CBCNOOUTREACH #### [address] Platelets (Bld) [#/Vol] 283 10*3/uL Normal 150-450 [facility] Comment on above: Performed By: #### O UTREACH CMP, OUTREACH LIPID, OUTREACH TSH, CBCNOOUTREACH #### [facility] [address] [place] [address] RBC (Bld) [#/Vol] 4.60 10*6/uL Normal 3.60-5.00 [facility] Comment on above: Performed By: #### O UTREACH CMP, OUTREACH LIPID, OUTREACH TSH, CBCNOOUTREACH #### [facility] [address] [place] [address] WBC (Bld) [#/Vol] 6.6 10*3/uL Normal 3.8-11.6 [facility] Comment on above: Performed By: #### O UTREACH CMP, OUTREACH LIPID, OUTREACH TSH, CBCNOOUTREACH #### [facility] [address] [place] [address] [place] CMP Outreachon 03-13-2022 Albumin [Mass/Vol] 4.0 g/dL Normal 3.2-5.5 [facility] Comment on above: Performed By: #### O UTREACH CMP, OUTREACH LIPID, OUTREACH TSH, CBCNOOUTREACH #### [facility] [address] [place] [address] ALP [Catalytic activity/Vol] 42 U/L Normal 32-92 [facility] Comment on above: Performed By: #### O UTREACH CMP, OUTREACH LIPID, OUTREACH TSH, CBCNOOUTREACH #### [facility] [address] [place] [address] ALT [Catalytic activity/Vol] 21 U/L Normal 10-60 [facility] Comment on above: Performed By: #### O UTREACH CMP, OUTREACH LIPID, OUTREACH TSH, CBCNOOUTREACH #### [facility] [address] [place] [address] Anion gap [Moles/Vol] 9.3 mmol/L Normal 6.0-15.0 [facility] Comment on above: Performed By: #### O UTREACH CMP, OUTREACH LIPID, OUTREACH TSH, CBCNOOUTREACH #### [facility] [address] [id number] [place] AST [Catalytic activity/Vol] 22 U/L Normal 10-42 [facility] Comment on above: Performed By: #### O UTREACH CMP, OUTREACH LIPID, OUTREACH TSH, CBCNOOUTREACH #### [facility] [address] [place] [address] [place] Bilirubin [Mass/Vol] 0.6 mg/dL Normal 0.3-1.2 [facility] Comment on above: Performed By: #### O UTREACH CMP, OUTREACH LIPID, OUTREACH TSH, CBCNOOUTREACH #### [facility] [address] [place] [address] [place] Calcium [Mass/Vol] 9.2 mg/dL Normal 8.2-10.2 [facility] Comment on above: Performed By: #### O UTREACH CMP, OUTREACH LIPID, OUTREACH TSH, CBCNOOUTREACH #### [facility] [address] [place] [address] [place] Chloride [Moles/Vol] 103 mmol/L Normal 95-114 [facility] Comment on above: Performed By: #### O UTREACH CMP, OUTREACH LIPID, OUTREACH TSH, CBCNOOUTREACH #### [facility] [address] [place] [address] [place] CO2 [Moles/Vol] 27.8 mmol/L Normal 22.0-30.0 [facility] Comment on above: Performed By: #### O UTREACH CMP, OUTREACH LIPID, OUTREACH TSH, CBCNOOUTREACH #### [facility] [address] [place], [place] [id number] [place] Creatinine [Mass/Vol] 0.62 mg/dL Normal 0.44-1.03 [facility] Comment on above: Performed By: #### O UTREACH CMP, OUTREACH LIPID, OUTREACH TSH, CBCNOOUTREACH #### [facility] [address] [place], [place] [id number] [place] Estimated GFR ( Sara > 60 Normal [facility] Comment on above: Result Comment: GFR estimated reference range: According to KDOQI guidelines, <60 ml/min/1.73m2 is sufficient to diagnose a patient with chronic kidney disease. Performed By: #### O UTREACH CMP, OUTREACH LIPID, OUTREACH TSH, CBCNOOUTREACH #### [facility] [address] [id number] [place] Estimated GFR (Non- Am > 60 Normal [facility] Comment on above: Performed By: #### O UTREACH CMP, OUTREACH LIPID, OUTREACH TSH, CBCNOOUTREACH #### [id number] [facility] Glucose [Mass/Vol] 91 mg/dL Normal 70-100 [facility] Comment on above: Result Comment: [place] Glucose Reference Range is dependent on time and content of last meal. Glucose of more than 200 mg/dL in a nonstressed, ambulatory subject supports the diagnosis of Diabetes Mellitus. ADA recommended reference range Performed By: #### O UTREACH CMP, OUTREACH LIPID, OUTREACH TSH, CBCNOOUTREACH #### [facility] [address] [place] [address] [place] Potassium [Moles/Vol] 4.1 mmol/L Normal 3.5-5.1 [facility] Comment on above: Performed By: #### O UTREACH CMP, OUTREACH LIPID, OUTREACH TSH, CBCNOOUTREACH #### [facility] [address] [place], [place] [id number] [place] Protein [Mass/Vol] 6.8 g/dL Normal 6.1-7.9 [facility] Comment on above: Performed By: #### O UTREACH CMP, OUTREACH LIPID, OUTREACH TSH, CBCNOOUTREACH #### [facility] [address] [place], [place] [id number] [place] Sodium [Moles/Vol] 136 mmol/L Normal 136-146 [facility] Comment on above: Performed By: #### O UTREACH CMP, OUTREACH LIPID, OUTREACH TSH, CBCNOOUTREACH #### [address] [phone] [place] Urea nitrogen [Mass/Vol] 9 mg/dL Normal 9-23 [facility] Comment on above: Performed By: #### [facility] CMP, OUTREACH LIPID, OUTREACH TSH, CBCNOOUTREACH #### [facility] [address] Cholesterol [Mass/volume] in Serum or PlasmaOrdered By: OUTREACH COMMUNITY on 03-13-2022 Cholesterol [Mass/Vol] 180 mg/dL 140-200 [facility] Comment on above: Chol less than 200 m g/dl low riskChol 201-239 mg/dl borderline riskChol 240 mg/dl and greater high risk Cholesterol in LDL Calc [Mas s/Vol]Ordered By: OUTREACH COMMUNITY on 03-13-2022 Cholesterol in LDL [Mass/Vol] 113 mg/dL 0-100 [facility] Comment on above: LDL ATP III CLASSIFI CATIONLDL less than 100 mg/dL OptimalLDL 100-129 mg/dL Near or above optimalLDL 130-159 mg/dL Borderline highLDL 160-189 mg/dL HighLDL greater than 189 mg/dL Very high Cholesterol in VLDL Calc [Ma ss/Vol]Ordered By: OUTREACH COMMUNITY on 03-13-2022 Cholesterol in VLDL [Mass/Vol] 11 mg/dL [facility] Creatinine and Glomerular fi ltration rate.predicted panel (S/P/Bld)Ordered By: OUTREACH [facility] on 03-13-2022 Creatinine [Mass/Vol] 0.62 mg/dL 0.44-1.03 [facility] Erythrocyte distribution wid th Auto (RBC) [Ratio]Ordered By: OUTREACH [facility] on 03-13-2022 Erythrocyte distribution width (RBC) [Ratio] 12.9 % 11.9-15.3 [facility] Estimated glomerular filtrat ion rate (GFR) non- AmericanOrdered By: OUTREACH COMMUNITY on 03-13-2022 GFR/1.73 sq M.predicted among non-blacks MDRD (S/P/Bld) [Vol rate/Area] > 60 mL/Min [facility] Hematocrit Auto (Bld) [Volum e fraction]Ordered By: OUTREACH COMMUNITY on 03-13-2022 Hematocrit (Bld) [Volume fraction] 42.3 % 34.0-46.4 [facility] Hemoglobin [Mass/volume] in BloodOrdered By: OUTREACH COMMUNITY on 03-13-2022 Hemoglobin (Bld) [Mass/Vol] 14.1 g/dL 11.8-15.4 [facility] Leukocytes [#/volume] correc pepper for nucleated erythrocytes in Blood by Automated counOrdered By: OUTREACH COMMUNITY on 03-13-2022 WBC corrected for nucl RBC Auto (Bld) [#/Vol] 6.6 10*3/uL 3.8-11.6 [facility] Lipid Profile Outreachon Cholesterol [Mass/Vol] 180 mg/dL Normal 140-200 [facility] Comment on above: Result Comment: Chol less than 200 mg/dl low risk Chol 201-239 mg/dl borderline risk Chol 240 mg/dl and greater high risk Performed By: #### O UTREACH CMP, OUTREACH LIPID, OUTREACH TSH, CBCNOOUTREACH #### [facility] [address] Cholesterol in HDL [Mass/Vol] 56 mg/dL Normal 35-85 [facility] Comment on above: Result Comment: HDL CHOL ATP-III CLASSIFICATION Cardiovascular Risk HDL > or equal to 60 mg/dL LOW HDL < 40 mg/dL HIGH Performed By: #### O UTREACH CMP, OUTREACH LIPID, OUTREACH TSH, CBCNOOUTREACH #### [facility] [address] [place] [address] [facility] Cholesterol.total/Cholest richard in HDL [Mass ratio] 3.2 {ratio} Normal <5.0 [facility] Comment on above: Performed By: #### O UTREACH CMP, OUTREACH LIPID, OUTREACH TSH, CBCNOOUTREACH #### [facility] [address] [place] [address] [facility] LDL Cholesterol,Calculated 113 mg/dL High 0-100 [facility] Comment on above: Result Comment: LDL ATP III CLASSIFICATION LDL less than 100 mg/dL Optimal LDL 100-129 mg/dL Near or above optimal LDL 130-159 mg/dL Borderline high LDL 160-189 mg/dL High LDL greater than 189 mg/dL Very high Performed By: #### O UTREACH CMP, OUTREACH LIPID, OUTREACH TSH, CBCNOOUTREACH #### [facility] [address] [place] [address] [place] Triglyceride w/Reflex 56 mg/dL Normal 35-149 [facility] Comment on above: Result Comment: TRIG ATP III CLASSIFICATION TRIG less than 150 mg/dL Normal TRIG 150-199 mg/dL Borderline high TRIG 200-500 mg/dL High TRIG greater than 500 mg/dL Very high Standard traceable to the Center for Disease Conrtrol and Prevention (CDC) test method. Performed By: #### [facility] CMP, OUTREACH LIPID, OUTREACH TSH, CBCNOOUTREACH #### [facility] [address] VLDL CHOLESTEROL 11 mg/dL Normal [facility] Comment on above: Performed By: #### O UTREA CMP, OUTREACH LIPID, OUTREACH TSH, CBCNOOUTREACH #### [facility] [address] MCH Auto (RBC) [Entitic mass ]Ordered By: OUTREACH [facility] on 03-13-2022 MCH (RBC) [Entitic mass] 30.6 pg 24.7-34.3 [facility] MCHC Auto (RBC) [Mass/Vol]Or dered By: [facility] on 03-13-2022 MCHC (RBC) [Mass/Vol] 33.2 g/dL 32.0-35.0 [facility] MCV Auto (RBC) [Entitic vol] Ordered By: OUTREACH [facility] on 03-13-2022 MCV (RBC) [Entitic vol] 92.0 fL 80-100 F [facility] No Panel InformationOrdered By: [facility] on 03-13-2022 Estimated GFR () > 60 mL/Min [facility] Comment on above: GFR estimated refere nce range: According to KDOQI guidelines, <60 ml/min/1.73m2 is sufficient to diagnose a patient with chronic kidney disease. Pharmacy Creatinine Clearance (Chem N/A [facility] Triglycerides Reflex 56 mg/dL 35-149 [facility] Comment on above: TRIG ATP III CLASSIF ICATIONTRIG less than 150 mg/dL NormalTRIG 150-199 mg/dL Borderline highTRIG 200-500 mg/dL High TRIG greater than 500 mg/dL Very highStandard traceable to the Center for Disease Conrtrol and Prevention (CDC) test method. Platelet mean volume Auto (B ld) [Entitic vol]Ordered By: [facility] on 03-13-2022 Platelet mean volume (Bld) [Entitic vol] 8.6 fL 6.3-10.7 [facility] Platelets Auto (Bld) [#/Vol] Ordered By: [facility] on 03-13-2022 Platelets (Bld) [#/Vol] 283 10*3/uL 150-450 [facility] Protein [Mass/volume] in Ser um or PlasmaOrdered By: OUTREACH [facility] on 03-13-2022 Protein [Mass/Vol] 6.8 g/dL 6.1-7.9 [facility] RBC Auto (Bld) [#/Vol]Ordere d By: [facility] on 03-13-2022 RBC (Bld) [#/Vol] 4.60 10*6/uL 3.60-5.00 [facility] Serum or plasma alanine og otransferase measurement without P-5'-P (enzymatic activiOrdered By: OUTREACH [facility] on 03-13-2022 ALT No additional P-5'-P [Catalytic activity/Vol] 21 U/L 10-60 [facility] Serum or plasma alkaline veronica sphatase measurement (enzymatic activity/volume)Ordered By: [facility] on 03-13-2022 ALP [Catalytic activity/Vol] 42 U/L 32-92 [facility] Serum or plasma anion gap de terminationOrdered By: [facility] on 03-13-2022 Anion gap [Moles/Vol] 9.3 mmol/L 6.0-15.0 [facility] Serum or plasma aspartate am inotransferase measurement (enzymatic activity/volume)Ordered By: OUTREACH [facility] on 03-13-2022 AST [Catalytic activity/Vol] 22 U/L 10-42 [facility] Serum or plasma calcium xiomara urement (mass/volume)Ordered By: OUTREACH [facility] on 03-13-2022 Calcium [Mass/Vol] 9.2 mg/dL 8.2-10.2 [facility] Serum or plasma chloride jerry surement (moles/volume)Ordered By: OUTREACH [facility] on 03-13-2022 Chloride [Moles/Vol] 103 mmol/L 95-114 [facility] Serum or plasma glucose xiomara urement (mass/volume)Ordered By: [facility] on 03-13-2022 Glucose [Mass/Vol] 91 mg/dL 70-100 [facility] Comment on above: ADA recommended refe rence rangeRandom Glucose Reference Range is dependent on time and content of last meal. Glucose of more than 200 mg/dL in a nonstressed, ambulatory subject supports the diagnosis of Diabetes Mellitus. Serum or plasma high density lipoprotein (HDL) cholesterol measurementOrdered By: [facility] on 03-13-2022 Cholesterol in HDL [Mass/Vol] 56 mg/dL 35-85 [facility] Comment on above: HDL CHOL ATP-III CLA SSIFICATION Cardiovascular RiskHDL > or equal to 60 mg/dL LOWHDL < 40 mg/dL HIGH Serum or plasma potassium me asurement (moles/volume)Ordered By: [facility] on 03-13-2022 Potassium [Moles/Vol] 4.1 mmol/L 3.5-5.1 [facility] Serum or plasma sodium measu rement (moles/volume)Ordered By: [facility] on 03-13-2022 Sodium [Moles/Vol] 136 mmol/L 136-146 [facility] Serum or plasma total biliru bin measurement (mass/volume)Ordered By: [facility] on 03-13-2022 Bilirubin [Mass/Vol] 0.6 mg/dL 0.3-1.2 [facility] Serum or plasma total carbon dioxide measurement (moles/volume)Ordered By: [facility] on 03-13-2022 CO2 [Moles/Vol] 27.8 mmol/L 22.0-30.0 [facility] Serum or plasma total choles terol/high density lipoprotein (HDL) cholesterol mass ratOrdered By: [facility] on 03-13-2022 Cholesterol.total/Cholest richard in HDL [Mass ratio] 3.2 {ratio} <5.0 [facility] Serum or plasma urea nitroge n measurement (mass/volume)Ordered By: [facility] on 03-13-2022 Urea nitrogen [Mass/Vol] 9 mg/dL 9-23 [facility] TSH DL <= 0.005 mIU/L QnOrde red By: OUTREACH [facility] on 03-13-2022 TSH Qn 3.87 m[IU]/L 0.45-5.33 [facility] Thyroid Stimulating Hormoneo n 03-13-2022 TSH Qn 3.87 m[IU]/L Normal 0.45-5.33 [facility] Comment on above: Result Comment: PERF ORMED BY: [facility] [address] [place] [address] PATHOLOGIST JURY CONSULTANT YEN ESCOBAR M.D. Performed By: #### O UTREA CMP, OUTREACH LIPID, OUTREACH TSH, CBCNOOUTREACH #### [facility] [address] [place] [address] [facility] Vital Signs Date Time Vital Sign Value Performing Clinician Facility 01-15-2025 10:35-0400 Body mass index (BMI) [Ratio] 32.17 kg/m2 Walter Emeli [employer] Work Phone: [facility] 01-15-2025 10:35-0400 Body weight 85 kg Walter Emeli [employer] Work Phone: [facility] 01-15-2025 10:35-0400 Diastolic blood pressure 80 mm[Hg] Walter Emeli [employer] Work Phone: [facility] 01-15-2025 10:35-0400 Systolic blood pressure 124 mm[Hg] Watler Emeli [employer] Work Phone: [facility] 12-17-2024 09:08-0400 Body mass index (BMI) [Ratio] 31.07 kg/m2 Walter Emeli [employer] Work Phone: [facility] 12-17-2024 09:08-0400 Body weight 82.1 kg Walter Emeli [employer] Work Phone: [facility] 12-17-2024 09:08-0400 Diastolic blood pressure 74 mm[Hg] Walter Emeli [employer] Work Phone: [facility] 12-17-2024 09:08-0400 Systolic blood pressure 118 mm[Hg] Walter Emeli [employer] Work Phone: [facility] 11-13-2024 11:54-0400 Body mass index (BMI) [Ratio] 29.7 kg/m2 Sunshine Caridad PA Work Phone: [facility] 11-13-2024 11:54-0400 Body weight 78.47 kg Sunshine Caridad PA Work Phone: [facility] 11-13-2024 11:54-0400 Diastolic blood pressure 70 mm[Hg] Sunshine Caridad PA Work Phone: [facility] 11-13-2024 11:54-0400 Systolic blood pressure 114 mm[Hg] Sunshine Caridad PA Work Phone: [facility] 10-16-2024 09:32-0400 Body mass index (BMI) [Ratio] 29.35 kg/m2 Morro Lalitha DO Work Phone: [facility] 10-16-2024 09:32-0400 Body weight 77.56 kg Morro Lalitha DO Work Phone: [facility] 10-16-2024 09:32-0400 Diastolic blood pressure 64 mm[Hg] Morro Lalitha DO Work Phone: [facility] 10-16-2024 09:32-0400 Systolic blood pressure 112 mm[Hg] Morro Lalitha DO Work Phone: [facility] 09-14-2024 11:05-0400 Body mass index (BMI) [Ratio] 29.18 kg/m2 [facility] 09-14-2024 11:05-0400 Body weight 77.11 kg [facility] Nurse [facility] 09-14-2024 11:05-0400 Diastolic blood pressure 64 mm[Hg] [facility] Nurse [facility] 09-14-2024 11:05-0400 Systolic blood pressure 110 mm[Hg] [facility] Nurse [facility] 08-28-2024 10:37-0400 Body mass index (BMI) [Ratio] 28.67 kg/m2 Sunshine Caridad PA Work Phone: [facility] 08-28-2024 10:37-0400 Body weight 75.75 kg Sunshine Caridad PA Work Phone: [facility] 08-28-2024 10:37-0400 Diastolic blood pressure 64 mm[Hg] Sunshine THAO Work Phone: [facility] 08-28-2024 10:37-0400 Systolic blood pressure 100 mm[Hg] Sunshine THAO Work Phone: [facility] 03-13-2024 14:00-0500 [facility] 03-13-2024 14:00-0500 Promise to Return [facility] 03-13-2024 13:00-0500 Hourly Rounding [facility] 03-13-2024 13:00-0500 Promise to Return [facility] 03-13-2024 12:00-0500 Hourly Rounding [facility] 03-13-2024 12:00-0500 Promise to Return [facility] 03-13-2024 04:08-0500 Heart rate 61 /min [facility] 03-13-2024 04:08-0500 SaO2% (BldA) [Mass fraction] 98 % [facility] 03-13-2024 04:07-0500 Diastolic blood pressure 61 mm[Hg] [facility] 03-13-2024 04:07-0500 Mean blood pressure 73 mm[Hg] [facility] 03-13-2024 04:07-0500 Systolic blood pressure 96 mm[Hg] [facility] 03-13-2024 04:00-0500 Blood Pressure Location [facility] 03-13-2024 04:00-0500 Body temperature 97.88 [degF] [facility] 03-13-2024 01:00-0500 Blood Pressure Location [facility] 03-13-2024 01:00-0500 Diastolic blood pressure 58 mm[Hg] [facility] 03-13-2024 01:00-0500 Heart rate 67 /min [facility] 03-13-2024 01:00-0500 Mean blood pressure 69 mm[Hg] [facility] 03-13-2024 01:00-0500 Systolic blood pressure 90 mm[Hg] [facility] 03-13-2024 00:49-0500 Heart rate 63 /min [facility] 03-13-2024 00:49-0500 SaO2% (BldA) [Mass fraction] 98 % [facility] 03-13-2024 00:49-0500 Diastolic blood pressure 47 mm[Hg] [facility] 03-13-2024 00:49-0500 Mean blood pressure 60 mm[Hg] [facility] 03-13-2024 00:49-0500 Systolic blood pressure 85 mm[Hg] [facility] 03-13-2024 00:49-0500 Body temperature 97.52 [degF] [facility] 03-12-2024 19:41-0500 SaO2% (BldA) [Mass fraction] 99 % [facility] 03-12-2024 19:40-0500 Body temperature 97.88 [degF] [facility] 03-12-2024 19:40-0500 Mean blood pressure 89 mm[Hg] [facility] 03-12-2024 16:00-0500 Body temperature 98.24 [degF] [facility] 03-12-2024 13:01-0500 Body temperature 97.88 [degF] [facility] 03-12-[facility]24 13:00-0500 Heart rate 87 /min [facility] 03-12-2024 11:53-0500 Mean blood pressure 71 mm[Hg] Kai Ofsandie [facility] 03-12-2024 11:53-0500 Respiratory rate 13 /min [facility] 03-12-2024 11:00-0500 Mean blood pressure 73 mm[Hg] [facility] 03-12-2024 10:30-0500 Respiratory rate 11 /min [facility] 03-12-2024 07:04-0500 Respiratory rate 16 /min [facility] 03-12-2024 05:46-0500 Heart rate 84 /min [facility] Encounters Encounter Date Encounter Type Care Provider Facility Start: 01-15-2025 End: 01-15-2025 Bamboo flowsheet Walter Sainz [employer] Work Phone: [facility] Start: 01-15-2025 End: 01-15-2025 Bamboo flowsheet Walter Sainz [employer] Work Phone: [facility] Start: 01-15-2025 End: 01-15-2025 Office outpatient visit 15 minutes Walter Sainz [employer] Work Phone: [facility] Comment on above: 24 weeks gestation o f ([facility]); Second trimester ([facility]); Diabetes mellitus screening; Pruritus Start: 01-15-2025 End: 01-15-2025 ambulatory WALTER SAINZ Not Available Start: 12-17-2024 End: 12-17-2024 Office outpatient visit 15 minutes Walter Sainz [employer] Work Phone: [facility] Comment on above: Second trimester pre gnancy ([facility]); 20 weeks gestation of ([facility]); Vasovagal episode Start: 12-17-2024 End: 12-17-2024 ambulatory WALTER SAINZ Not Available Start: 11-13-2024 End: 11-13-2024 Office outpatient visit 15 minutes Sunshine THAO Work Phone: [facility] Comment on above: Second trimester pre gnancy ([facility]); 15 weeks gestation of ([facility]); Vasovagal episode; Need for maternal serum alpha-protein (MSAFP) screening ([facility]); Screening, , for anatomic survey ([facility]) Start: 11-13-2024 End: 11-13-2024 ambulatory SUNSHINE DING Not Available Start: 11-05-2024 End: 11-05-2024 ambulatory SUNSHINE DING Not Available Start: 11-05-2024 End: 11-05-2024 flow sheet Sunshine THAO Work Phone: [facility] Comment on above: Second trimester pre gnancy ([facility]); 14 weeks gestation of ([facility]); Vasovagal symptom; Screen for STD (sexually transmitted disease); Yeast infection Start: 11-05-2024 End: 11-05-2024 Bamboo flowsheet Sunshine THAO Work Phone: [facility] Start: 11-05-2024 End: 11-05-2024 Bamboo flowsheet Sunshine THAO Work Phone: [facility] Start: 10-16-2024 End: 10-16-2024 Bamboo flowsheet Morro Lalitha DO Work Phone: [facility] Start: 10-16-2024 End: 10-16-2024 Bamboo flowsheet Morro Lalitha DO Work Phone: [facility] Start: 10-16-2024 End: 10-16-2024 flow sheet Morro Lalitha DO Work Phone: [facility] Comment on above: First trimester preg nathan ([facility]); 11 weeks gestation of ([facility]); Vasovagal episode Start: 10-16-2024 End: 10-16-2024 ambulatory MORRO LALITHA Not Available Start: 10-08-2024 End: 10-08-2024 Clinisync Result Encounter Morro Lalitha DO Work Phone: [facility] Unsolicited Start: 10-08-2024 End: 10-08-2024 Clinisync Result Encounter Morro Lalitha DO Work Phone: [facility] Unsolicited Start: 09-14-2024 End: 09-14-2024 Clinisync Result Encounter Morro Lalitha DO Work Phone: [facility] Unsolicited Start: 09-14-2024 End: 09-14-2024 Clinisync Result Encounter Morro Lalitha DO Work Phone: [facility] Unsolicited Start: 09-14-2024 End: 09-14-2024 ambulatory SUNSHINE DING Not Available Start: 09-14-2024 End: 09-14-2024 Office outpatient visit 5 minutes [facility] Lalitha Nurse [facility] Comment on above: GA: 6w6d Start: 08-30-2024 End: 08-30-2024 ambulatory SUNSHINE DING Not Available Start: 08-28-2024 End: 08-28-2024 Bamboo flowsheet Sunshine Ding PA Work Phone: [facility] Start: 08-28-2024 End: 08-29-2024 Bamboo flowsheet Sunshine Ding PA Work Phone: [facility] Start: 08-28-2024 End: 08-28-2024 Clinisync Result Encounter Sunshine Ding PA Work Phone: [facility] Unsolicited Start: 08-28-2024 End: 08-29-2024 External Result Encounter Sunshine Ding PA Work Phone: [facility] Unsolicited Start: 08-28-2024 End: 08-28-2024 ambulatory SUNSHINE CARIDAD Not Available Start: 08-28-2024 End: 08-28-2024 Patient encounter procedure Sunshine THAO Work Phone: [facility] Work Phone: Start: 08-28-2024 End: 08-28-2024 Periodic preventive med est patient 18-39 yrs Sunshine THAO Work Phone: [facility] Comment on above: Well woman exam with routine gynecological exam; Missed menses Start: 06-04-2024 End: 06-06-2024 ambulatory JENNA BA [facility] Start: 06-04-2024 End: 06-06-2024 Subsequent hospital visit by physician Jenna Ba DO Work Phone: [facility] Comment on above: Palpitations; Pre-syncope Start: 03-12-2024 End: 03-13-2024 ambulatory Moses Smith [facility] Start: 03-12-2024 Emergency department patient visit DO Tuan Lovell Facility:[facility] Start: 03-12-2024 End: 03-13-2024 Observation Kai Lozano [facility] Start: 05-26-2022 End: 05-26-[address] MORRO DOTY . Facility: Start: 05-12-2022 End: 05-13-[address] MORRO DOTY . Facility: Start: 03-13-2022 End: 03-13-2022 ambulatory Outreach [facility] Facility:[facility] Start: 03-13-2022 End: 03-13-2022 ambulatory PHYSICIAN ALTON [facility] Work Phone: Start: 03-13-2022 End: 03-13-2022 Departed Referred PHYSICIAN NO [facility] Procedures Date Procedure Procedure Detail Performing Clinician Start: 01-15-2025 Urnls dip stick/tabl et rgnt non-auto w/o micrscp Walter Sainz NP Work Phone: Start: 12-17-2024 Urnls dip stick/tabl et rgnt non-auto w/o micrscp Walter Sainz [employer] Work Phone: Start: 11-13-2024 Urnls dip stick/tabl et rgnt non-auto w/o micrscp Sunshine THAO Work Phone: Start: 11-05-2024 Urnls dip stick/tabl et rgnt non-auto w/o micrscp Sunshine THAO Work Phone: Start: 10-16-2024 Urnls dip stick/tabl et rgnt non-auto w/o micrscp Morro Lalitha DO Work Phone: Start: 10-08-2024 ALL CBC WITH AUTO DIFF Morro Lalitha DO Work Phone: Start: 09-14-2024 US OB TRANSVAGINAL Core y Lalitha DO Work Phone: Start: 09-14-2024 Urine test visual color cmprsn meths Morro Lalitha DO Work Phone: Start: 08-28-2024 RECURRENT VAGINITIS (HTRX) Sunshine THAO Work Phone: Start: 08-28-2024 TBH PREG QUANT HCG Sunshine THAO Work Phone: Start: 08-28-2024 Urine test visual color cmprsn meths Sunshine THAO Work Phone: None (qualifier value) Chelsea Mcrae Plan of Treatment Date Care Activity Detail Author Start: 02-06-2025 End: 02-06-2025 Patient encounter procedure 02/06/2025 9:20 AM EDT Routine [facility] [address] [place] [id number] Sunshine Ding PA [address] [place] [address] [facility] Start: 01-31-2025 End: 01-31-2025 Patient encounter procedure 01/31/2025 3:50 PM EDT Office Visit [facility] [address] [place] [phone] Whit Lucero PA [address] [place] [id number] [facility] Start: 01-15-2025 End: 01-15-2026 Bile acids, total Bile acids, total Lab Routine Pruritus Expected: 01/15/2025 (Approximate), Expires: 01/15/2026 [facility] Comment on above: Expected: 01/15/2025 (Approximate), Expires: 01/15/2026 Start: 01-15-2025 End: 01-15-2026 CBC panel - Blood by Automated count CBC Lab Routine Diabetes mellitus screening Expected: 01/15/2025 (Approximate), Expires: 01/15/2026 [facility] Work Phone: Comment on above: Expected: 01/15/2025 (Approximate), Expires: 01/15/2026 Start: 01-15-2025 End: 01-15-2026 CBC W Auto Differential panel - Blood CBC and differential Lab Routine Pruritus Expected: 01/15/2025 (Approximate), Expires: 01/15/2026 [facility] Comment on above: Expected: 01/15/2025 (Approximate), Expires: 01/15/2026 Start: 01-15-2025 End: 01-15-2026 Hepatic function 2000 panel - Serum or Plasma Hepatic function panel Lab Routine Pruritus Expected: 01/15/2025 (Approximate), Expires: 01/15/2026 [facility] Comment on above: Expected: 01/15/2025 (Approximate), Expires: 01/15/2026 Start: 01-15-2025 End: 01-15-2026 Hepatitis C virus Ab [Presence] in Serum or Plasma by Immunoassay Hepatitis C antibody Lab Routine Pruritus Expected: 01/15/2025 (Approximate), Expires: 01/15/2026 [facility] Comment on above: Expected: 01/15/2025 (Approximate), Expires: 01/15/2026 Start: 01-15-2025 End: 01-15-2026 Measurement of glucose 1 hour after glucose challenge for glucose tolerance test Glucose tolerance, 1 hour Lab Routine Diabetes mellitus screening Expected: 01/15/2025 (Approximate), Expires: 01/15/2026 [facility] Comment on above: Expected: 01/15/2025 (Approximate), Expires: 01/15/2026 Start: 01-15-2025 End: 01-15-2026 Thyrotropin [Units/volume] in Serum or Plasma TSH Lab Routine Pruritus Expected: 01/15/2025 (Approximate), Expires: 01/15/2026 [facility] Comment on above: Expected: 01/15/2025 (Approximate), Expires: 01/15/2026 Start: 01-15-2025 End: 01-15-2025 Patient encounter procedure [facility] Comment on above: Arrived Start: 12-17-2024 End: 12-17-2024 Patient encounter procedure 12/17/2024 9:20 AM EDT Routine [facility] [address] [facility] [phone] Morro Doty DO [address] [place] [address] [facility] Start: 12-17-2024 End: 12-17-2024 Professional / ancillary services management 12/17/2024 8:00 AM EDT Ancillary Procedure [facility] [address] [place] [phone] [facility] Start: 11-13-2024 End: 01-13-2025 Alpha fetoprotein, maternal Alpha fetoprotein, maternal Lab Routine Need for maternal serum alpha-protein (MSAFP) screening ([facility]) Expected: 11/13/2024 (Approximate), Expires: 01/13/2025 [facility] Work Phone: Comment on above: Expected: 11/13/2024 (Approximate), Expires: 01/13/2025 Start: 11-13-2024 End: 02-13-2025 US for US OB 14+ weeks anatomy scan Imaging Routine Screening, , for anatomic survey ([facility]) Expected: 11/13/2024 (Approximate), Expires: 02/13/2025 [facility] Comment on above: Expected: 11/13/2024 (Approximate), Expires: 02/13/2025 Start: 11-13-2024 End: 11-13-2024 Patient encounter procedure [facility] Start: 10-16-2024 End: 10-16-2024 Patient encounter procedure [facility] Comment on above: Arrived Start: 09-28-2024 Depression Screen Depression Screen [facility] Start: 09-14-2024 End: 09-14-2025 ABO/Rh ABO/Rh Lab Routine Missed menses , unspecified gestational age Expected: 09/14/2024 (Approximate), Expires: 09/14/2025 [facility] Comment on above: Expected: 09/14/2024 (Approximate), Expires: 09/14/2025 Start: 09-14-2024 End: 09-14-2025 Blood type and Indirect antibody screen panel - Blood Type and screen Lab Routine Missed menses , unspecified gestational age Expected: 09/14/2024 (Approximate), Expires: 09/14/2025 [facility] Work Phone: Comment on above: Expected: 09/14/2024 (Approximate), Expires: 09/14/2025 Start: 09-14-2024 End: 09-14-2025 Drugs of abuse panel - Urine by Screen method Rapid drug screen, urine Lab Routine , unspecified gestational age Encounter for supervision of normal first in first trimester Expected: 09/14/2024 (Approximate), Expires: 09/14/2025 [facility] Comment on above: Expected: 09/14/2024 (Approximate), Expires: 09/14/2025 Start: 08-30-2024 End: 08-30-2024 ambulatory 08/30/2024 2:00 PM EDT Initial [facility] [address] [place] [address] [place] [phone] [facility] Start: 08-30-2024 End: 08-30-2024 Professional / ancillary services management 08/30/2024 1:30 PM EDT Ancillary Procedure [facility] [address] [facility] [address] [facility] Start: 08-28-2024 End: 08-28-2025 hCG, quantitative, hCG, quantitative, Lab Routine Missed menses Expected: 08/28/2024 (Approximate), Expires: 08/28/2025 [facility] Comment on above: Expected: 08/28/2024 (Approximate), Expires: 08/28/2025 Start: 08-28-2024 End: 11-28-2024 US Pelvis transvaginal US OB transvaginal Imaging Routine Missed menses Expected: 08/28/2024, Expires: 11/28/2024 [facility] Comment on above: Expected: 08/28/2024 , Expires: 11/28/2024 Start: 12-11-2023 COVID-19 Vaccine ( season) COVID-19 Vaccine ( season) [facility] Start: 11-10-2023 Influenza vaccination Flu vaccine (# 1) [facility] Start: 10-29-2019 Screening for malign ant neoplasm of cervix Pap smear [facility] Start: 2017 DTaP/Tdap/Td vaccine (1 - Tdap) DTaP/Tdap/Td vaccine (1 - Tdap) [facility] Start: 2017 Hepatitis B vaccine (1 of 3 - 19+ 3-dose series) Hepatitis B vaccine (1 of 3 - 19+ 3-dose series) [facility] Start: 2016 Hepatitis C screening Hepatitis C sc reen [facility] Start: 2013 HIV screening HIV screen [facility] Start: 2013 HPV vaccine (1 - 3-d ose series) HPV vaccine (1 - 3-dose series) [facility] Start: 10-29-2011 Varicella vaccine (1 of 2 - 13+ 2-dose series) Varicella vaccine (1 of 2 - 13+ 2-dose series) [facility] Bacteria identified in Urine by Culture Urine culture Microbiology Routine Missed menses Ordered: 09/14/2024 [facility] Comment on above: Ordered: 09/14/2024 CBC W Auto Different ial panel - Blood CBC and differential Lab Routine Missed menses , unspecified gestational age Ordered: 09/14/2024 [facility] Comment on above: Ordered: 09/14/2024 CHLAMYDIA TRACHOMATI S (GENITO/STI) CHLAMYDIA TRACHOMATIS (GENITO/STI) Lab Routine Screen for STD (sexually transmitted disease) Ordered: 11/05/2024 [facility] Comment on above: Ordered: 11/05/2024 Cytology Cervical or vaginal smear or scraping study Pap Smear Pathology and Cytology Routine Well woman exam with routine gynecological exam Ordered: 08/28/2024 [facility] Work Phone: Comment on above: Ordered: 08/28/2024 End: 06-04-2024 Extended cardiac holter monitor (3 days-14 day) [facility] Comment on above: 1 Occurrences starti ng 06/04/2024 until 06/04/2024 Hemoglobin A1c/Hemoglobin.total in Blood Hemoglobin A1c Lab Routine Missed menses , unspecified gestational age Ordered: 09/14/2024 [facility] Comment on above: Ordered: 09/14/2024 Hepatitis B virus surface Ag [Presence] in Serum or Plasma by Immunoassay Hepatitis B surface antigen Lab Routine Missed menses , unspecified gestational age Ordered: 09/14/2024 [facility] Comment on above: Ordered: 09/14/2024 Hepatitis C virus Ab [Presence] in Serum or Plasma by Immunoassay Hepatitis C antibody Lab Routine Missed menses , unspecified gestational age Ordered: 09/14/2024 [facility] Comment on above: Ordered: 09/14/2024 HIV-1/HIV-2 antigen/antibody combination immunoassay HIV-1 and HIV-2 antibodies Lab Routine Missed menses , unspecified gestational age Ordered: 09/14/2024 [facility] Comment on above: Ordered: 09/14/2024 Neisseria gonorrhoea e DNA [Presence] in Unspecified specimen by JACQUELINE with probe detection Neisseria gonorrhea DNA probe, direct Lab Routine Screen for STD (sexually transmitted disease) Ordered: 11/05/2024 [facility] Comment on above: Ordered: 11/05/2024 Reagin Ab [Presence] in Serum by RPR RPR Lab Routine Missed menses , unspecified gestational age Ordered: 09/14/2024 [facility] Comment on above: Ordered: 09/14/2024 Rubella antibody, IgG Rubella an tibody, IgG Lab Routine Missed menses , unspecified gestational age Ordered: 09/14/2024 [facility] Comment on above: Ordered: 09/14/2024 SURESWAB(R) ADVANCED VAGINITIS PLUS, TMA SURESWAB(R) ADVANCED VAGINITIS PLUS, TMA Pathology and Cytology Routine Screen for STD (sexually transmitted disease) Yeast infection Ordered: 11/05/2024 [facility] Work Phone: Comment on above: Ordered: 11/05/2024 Immunizations Immunization Date Immunization Notes Care Provider Peace franco 01-09-2019 influenza virus vacc ine, live, attenuated, for intranasal use Kai Mcrea [facility] [place] Payers Date Payer Category Payer Unknown [id number] 2024 Private Health Insurance 2022 Self-pay [id number] 1998 Unknown [id number] 1998 Unknown [id number] 1998 Unknown [id number] 2.16840.1.147981.3.579.2.727 1998 Unknown [id number] 2.16840.1.696648.3.579.2.727 1998 Unknown [id number] 2.16840.1.550236.3.579.2.727 1998 Unknown [id number] 2.840.1.481607.3.579.2.727 1998 Unknown [id number] 2.16840.1.000388.3.579.2.182 1998 Unknown [id number] 2.16.840.1.579086.3.579.2.9 1998 Unknown [id number] 2.16.840.1.546084.3.579.2.1259 1998 Unknown [id number] 2.16.840.1.903099.3.579.2.9 1998 Unknown [id number] 2.16.840.1.999877.3.579.2.9 1998 Unknown [id number] 2.16.840.1.570239.3.579.2.9 1998 Unknown [id number] 2.16.840.1.562089.3.579.2.9 1998 Unknown [id number] 2.16.840.1.303086.3.579.2.1258 1998 Unknown [id number] 2.16.840.1.187790.3.579.2.9 1998 Unknown [id number] 2.16.840.1.045655.3.579.2.1259 1959 Unknown [id number] Unknown Darwin BC/BS [id number] Unknown [id number] [id number] Social History Date Type Detail Facility Start: 01-01-2017 End: 08-18-2020 Tobacco smoking status NHIS Never smoked tobacco (finding) [facility] Start: 2000 Sex Assigned At Female F [facility] Tobacco [facility] Comment on above: Denies Tobacco smoking status No Smokin g Status Entered [facility] Start: 08-18-2020 End: 09-29-2023 Sex Assigned At Female [facility] Start: 08-18-2020 Tobacco use and exposure Smokeless tobacco non-user [facility] Start: 03-15-2024 Alcoholic beverage intake Lifetime non-drinker (finding) [facility] Start: 08-18-2020 End: 09-29-2023 History of Social function [facility] How often to you hav e a drink containing alcohol? Never [facility] How many standard drinks containing alcohol do you have on a typical day? Not asked [employer] (I/We) worried hawk er (my/our) food would run out before (I/we) got money to buy more. Never true [facility] Start: 1998 Sex assigned at Not on file B on [employer] Tobacco smoking stat [facility] Tobacco smoking consumption unknown [facility] Start: 08-23-2023 Gender identity Identifies as female gender (finding) [facility] Start: 08-23-2023 Sexual orientation Heterosexual (fin ding) [facility] Start: 08-11-2024 [facility] Functional Status Date Assessment Result Facility 03-12-2024 Functional Status No [facility] 03-12-2024 Functional Status [facility] Clinical Notes 03-12-2024 to 01-15-2025 Walter Sainz NP - 01/15/2025 10:30 AM Nimo Fournier LPN - 12/17/2024 9:20 AM KEESHA Elizalde - 11/13/2024 11:00 AM KEESHA Elizalde - 11/05/2024 3:20 PM EDT Note Date & Type Note Facility 01-15-2025 History of Presen t illness Narrative Reason for Appointment: Patient ID: Jyoti Torres is a 24 y.o. female who presents for Routine Visit Patient presents today for Return OB appointment. MEDICATIONS No current outpatient medications ALLERGIES No Known Allergies PROBLEMS Active Ambulatory Problems Diagnosis Date Noted Missed menses 08/30/2024 Amenorrhea 09/14/2024 Encounter for supervision of normal first in first trimester ([facility]) 09/14/2024 Vasovagal episode 10/16/2024 Resolved Ambulatory Problems Diagnosis Date Noted No Resolved Ambulatory Problems Past Medical History: Diagnosis Date Positive urine test ([facility]) HISTORY PAST MEDICAL HISTORY SOCIAL HISTORY Past Medical History: Diagnosis Date Positive urine test ([facility]) Social History Tobacco Use Smoking status: Not [...] nursing note reviewed. Exam conducted with a medical technician present. Vitals: Estimated body mass index is 32.17 kg/m as calculated from the following: Height as of 08/24/23: 5' 4 . Weight as of this encounter: 187 lb 6.4 oz. BP: 124/80 Patient's last menstrual period was 06/27/2024. ASSESSMENT & PLAN ICD-10-CM 1. 24 weeks gestation of ([facility]) Z3A.24 POCT urinalysis dipstick manually resulted 2. Second trimester ([facility]) Z34.92 3. Diabetes mellitus screening Z13.1 CBC [...] obtain baseline labs for cholestasis. Documented by Walter Sainz NP on behalf of: Walter Sainz NP documented in this encounter [facility] 12-17-2024 History of Presen t illness Narrative Reason for Appointment: Patient ID: Jyoti Torres is a 24 y.o. female who presents for Routine Visit Patient presents today for Return OB appointment. MEDICATIONS No current outpatient medications ALLERGIES No Known Allergies PROBLEMS Active Ambulatory Problems Diagnosis Date Noted Missed menses 08/30/2024 Amenorrhea 09/14/2024 Encounter for supervision of normal first in first trimester ([facility]) 09/14/2024 Vasovagal episode 10/16/2024 Resolved Ambulatory Problems Diagnosis Date Noted No Resolved Ambulatory Problems Past Medical History: Diagnosis Date Positive urine test ([facility]) HISTORY PAST MEDICAL HISTORY SOCIAL HISTORY Past Medical History: Diagnosis Date Positive urine test ([facility]) Social History Tobacco Use Smoking status: Not [...] nursing note reviewed. Exam conducted with a medical technician present. Vitals: Estimated body mass index is 31.07 kg/m as calculated from the following: Height as of 08/24/23: 5' 4 . Weight as of this encounter: 181 lb. BP: 118/74 Patient's last menstrual period was 06/27/2024. ASSESSMENT & PLAN ICD-10-CM 1. Second trimester ([facility]) Z34.92 POCT urinalysis dipstick manually resulted 2. 20 weeks gestation of ([facility]) Z3A.20 3. Vasovagal episode R55 Patient presents today for a routine obstetrics appointment. Patient is currently 20w2d with a Estimated Date of Delivery: 05/04/25. Patient complaints of shoulder discomfort. Discussed going to Chiropractor for an adjustment and if still needed to discuss PT later on in . Patient had anatomy scan done prior to today's appointment. Patient to return to clinic in 4 weeks for routine OB appointment. Documented by Mary Fournier LPN on behalf of: Walter Sainz NP documented in this encounter [facility] 11-13-2024 History of Presen t illness Narrative Reason for Appointment: Patient ID: Jyoti Torres is a 24 y.o. female who presents for Routine Visit Patient presents today for Return OB appointment. MEDICATIONS No current outpatient medications ALLERGIES No Known Allergies PROBLEMS Active Ambulatory Problems Diagnosis Date Noted Missed menses 08/30/2024 Amenorrhea 09/14/2024 Encounter for supervision of normal first in first trimester ([facility]) 09/14/2024 Vasovagal episode 10/16/2024 Resolved Ambulatory Problems Diagnosis Date Noted No Resolved Ambulatory Problems Past Medical History: Diagnosis Date Positive urine test ([facility]) HISTORY PAST MEDICAL HISTORY SOCIAL HISTORY Past Medical History: Diagnosis Date Positive urine test ([facility]) Social History Tobacco Use Smoking status: Not [...] Appearance: Normal appearance. She is normal weight. HENT: Head: Normocephalic. Cardiovascular: Rate and Rhythm: Normal rate. Pulses: Normal pulses. Pulmonary: Effort: Pulmonary effort is normal. Breath sounds: Normal breath sounds. Abdominal: Palpations: Abdomen is soft. Musculoskeletal: General: Normal range of motion. Neurological: General: No focal deficit present. Mental Status: She is alert and oriented to person, place, and time. Psychiatric: Mood and Affect: Mood normal. Behavior: Behavior normal. Thought Content: Thought content normal. Judgment: Judgment normal. Vitals and nursing note reviewed. Vitals: Estimated body mass index is 30.04 kg/m as calculated from the following: Height as of 08/24/23: 5' 4 . Weight as of 11/05/24: 175 lb. BP: Patient's last menstrual period was 06/27/2024. ASSESSMENT & PLAN ICD-10-CM 1. Second trimester ([facility]) Z34.92 POCT urinalysis dipstick manually resulted 2. 15 weeks gestation of ([facility]) Z3A.15 3. Vasovagal episode R55 4. Need for maternal serum alpha-protein (MSAFP) screening ([facility]) Z36.1 Alpha fetoprotein, maternal Alpha fetoprotein, maternal Return OB: Patient presents today for a routine obstetrics appointment. Patient is currently 15w3d . Patient states she is doing well but has complaints of being tired due to current . Patient has verbalizes frequent movement. labor precautions was discussed/given and patient was instructed to perform kick counts three times a day. Patient was given a MSAFP/Anatomy US order to have obtained at [facility]. Orders Placed This Encounter Procedures Alpha fetoprotein, maternal POCT urinalysis dipstick manually resulted Follow Up: Patient is to return to office in 4 week for routine OB appointment. Documented by Olena Gould MA on behalf of: KEESHA Resendiz documented in this encounter [facility] 11-05-2024 History of Presen t illness Narrative Reason for Appointment: Patient ID: Jyoti Torres is a 24 y.o. female who presents for Routine Visit Patient presents today for STD Check. and Return OB appointment. MEDICATIONS No current outpatient medications ALLERGIES No Known Allergies PROBLEMS Active Ambulatory Problems Diagnosis Date Noted Missed menses 08/30/2024 Amenorrhea 09/14/2024 Encounter for supervision of normal first in first trimester ([facility]) 09/14/2024 Vasovagal episode 10/16/2024 Resolved Ambulatory Problems Diagnosis Date Noted No Resolved Ambulatory Problems No Additional Past Medical History HISTORY PAST MEDICAL HISTORY SOCIAL HISTORY No past medical history on file. Social History Tobacco Use Smoking status: Not [...] Appearance: Normal appearance. She is normal weight. HENT: Head: Normocephalic. Cardiovascular: Rate and Rhythm: Normal rate. Pulses: Normal pulses. Pulmonary: Effort: Pulmonary effort is normal. Breath sounds: Normal breath sounds. Abdominal: Palpations: Abdomen is soft. Musculoskeletal: General: Normal range of motion. Neurological: General: No focal deficit present. Mental Status: She is alert and oriented to person, place, and time. Psychiatric: Mood and Affect: Mood normal. Behavior: Behavior normal. Thought Content: Thought content normal. Judgment: Judgment normal. Vitals and nursing note reviewed. Vitals: Estimated body mass index is 29.35 kg/m as calculated from the following: Height as of 08/24/23: 5' 4 . Weight as of 10/16/24: 171 lb. BP: Patient's last menstrual period was 06/27/2024. ASSESSMENT & PLAN (Z34.92) Second trimester ([facility]) Plan: POCT urinalysis dipstick manually resulted (Z3A.14) 14 weeks gestation of ([facility]) (R55) Vasovagal symptom (Z11.3) Screen for STD (sexually transmitted disease) Plan: SURESWAB(R) ADVANCED VAGINITIS PLUS, TMA, CHLAMYDIA TRACHOMATIS (GENITO/STI), Neisseria gonorrhea DNA probe, direct (B37.9) Yeast infection Plan: SURESWAB(R) ADVANCED VAGINITIS PLUS, TMA Return OB: Patient presents today for a routine obstetrics appointment. Patient is currently 14w2d . Patient states she is doing well but has complaints of being tired due to current and a possible yeast infection. Patient desires to have cx's done at this visit. Pt states she has had symptoms of a yeast infection for 3 days. Patient has verbalizes frequent movement. labor precautions was discussed/given and patient was instructed to perform kick counts three times a day. Cx's were taken and pt was advised results will be back in 1-2 business days. PVU. Orders Placed This Encounter Procedures CHLAMYDIA TRACHOMATIS (GENITO/STI) Neisseria gonorrhea DNA probe, direct POCT urinalysis dipstick manually resulted Follow Up: Patient is to return to office in 2 week for routine OB appointment. Documented by Olena Gould MA on behalf of: KEESHA Resendiz documented in this encounter [facility] 10-16-2024 History of Presen t illness Narrative Reason for Appointment: Patient ID: Jyoti Torres is a 23 y.o. female who presents for Routine Visit Patient presents today for Return OB appointment. MEDICATIONS No current outpatient medications ALLERGIES No Known Allergies PROBLEMS Active Ambulatory Problems Diagnosis Date Noted Missed menses 08/30/2024 Amenorrhea 09/14/2024 Encounter for supervision of normal first in first trimester ([facility]) 09/14/2024 Vasovagal episode 10/16/2024 Resolved Ambulatory Problems Diagnosis Date Noted No Resolved Ambulatory Problems No Additional Past Medical History HISTORY PAST MEDICAL HISTORY SOCIAL HISTORY No past medical history on file. Social History Tobacco Use Smoking status: Not [...] nursing note reviewed. Exam conducted with a medical technician present. Vitals: Estimated body mass index is 29.35 kg/m as calculated from the following: Height as of 08/24/23: 5' 4 . Weight as of this encounter: 171 lb. BP: 112/64 Patient's last menstrual period was 06/27/2024. ASSESSMENT & PLAN ICD-10-CM 1. First trimester ([facility]) Z34.91 POCT urinalysis dipstick manually resulted 2. 11 weeks gestation of ([facility]) Z3A.11 3. Vasovagal episode R55 New OB: Patient presents today for 1st time obstetrics appointment with provider. Patient is currently 11w3d . Patients history has been reviewed in great detail including any potential risks. Patient stated she currently has no complaints. Expectations throughout regarding labs, ultrasounds, and appointments have been discussed with the patient in detail. It was reiterated that the patient is to drink 6-8 glasses of water a day, eat 6 small meals a day, do not consume raw or undercooked meat, and stay away from [facility]. Patient has been consulted regarding any further do's and don'ts of . Patient voiced understanding and all questions and concerns were answered. Orders Placed This Encounter Procedures POCT urinalysis dipstick manually resulted Follow Up: Patient is to return in 4 weeks for routine OB appointment. Documented by Анна Hare LPN on behalf of: Morro Doty DO documented in this encounter [facility] 09-14-2024 History of Presen t illness Narrative Reason for Appointment: Patient ID: Jyoti Torres is a 23 y.o. female who presents for Amenorrhea Patient presents today for a Nurse OB Intake appointment. Patient is 6w6d with a Estimated Date of Delivery: 05/04/25 OB History Para Term AB Living 1 SAB IAB Ectopic Multiple Live Births # Outcome Date GA Lbr Fernando/2nd Weight Sex Type Anes PTL Lv 1 Current Current Medications: currently has no medications in their medication list. Medical History: Active Ambulatory Problems Diagnosis Date Noted Missed menses 08/30/2024 Amenorrhea 09/14/2024 Encounter for supervision of normal first in first trimester 09/14/2024 Resolved Ambulatory Problems Diagnosis Date Noted No Resolved Ambulatory Problems No Additional Past Medical History No family history on file. Social History Tobacco Use Smoking status: Not on file Smokeless tobacco: Not on file Substance Use Topics Alcohol use: Not on file Drug use: Not on file No past surgical history on file. No Known Allergies Vitals: Estimated body mass index is 29.18 kg/m as calculated from the following: Height as of 08/24/23: 5' 4 . Weight as of this encounter: 170 lb. BP: 110/64 Patient's last menstrual period was 06/27/2024. Assessment/Plan Diagnoses and all orders for this visit: Amenorrhea Missed menses - Type and screen; Future - ABO/Rh; Future - CBC and differential - Hemoglobin A1c - RPR - Rubella antibody, IgG - Hepatitis B surface antigen - Hepatitis C antibody - HIV-1 and HIV-2 antibodies - Urine culture - POCT , urine manually resulted , unspecified gestational age - Type and screen; Future - ABO/Rh; Future - CBC and differential - Hemoglobin A1c - RPR - Rubella antibody, IgG - Hepatitis B surface antigen - Hepatitis C antibody - HIV-1 and HIV-2 antibodies - Rapid drug screen, urine; Future Encounter for supervision of normal first in first trimester - Rapid drug screen, urine; Future 6 weeks gestation of Nurse Note: Patient desires [place] [facility]. Advised pt to make sure to wait until 9 weeks and take labs along w/[facility] to have drawn. The lab will not draw blood unless both orders are together. PVU. OB Intake: Patient presents today for first OB visit. Patients history has been reviewed in great detail including any potential risks. Patient signed consent forms and patient desires testing in both trimesters. Patient currently has no complaints and has been advised to drink 6-8 glasses of water a day, eat no raw or undercooked meat, and stay away from [facility]. Patient has also been advised to not change litter boxes and eat 6 small meals a day. Patient has been consulted regarding the do's and don'ts of . Patient was given labs and all questions and concerns were answered. Follow Up: Patient is to return in 4 weeks for routine OB appointment. Follow Up: Patient is to have labs drawn at directed and return to office for initial OB appointment with provider. Patient may call office as needed with any concerns or questions. Nurse Visit Completed by: Olena Gould MA documented in this encounter [facility] 08-28-2024 History of Presen t illness Narrative [...] nursing note reviewed. Exam conducted with a medical technician present. Vitals: Estimated body mass index is [...] of: KEESHA Resendiz documented in this encounter [facility] 03-13-2024 Evaluation + Plan note Extrac pepper from: Title:Discharge Note Author:Moses Smith DO Date:03/13/24 Discharge To, Anticipated II - Home with responsible caregiver Prescriptions No active prescription medications Home No active home medications With When Contact Information Benjamin Flores MD, CAR Within 2 to 4 weeks Additional Instructions: Call for followup appointment Anthony Flood MD, NEU Within 2 to 4 weeks [address] [place] [address]- Additional Instructions: Postural Orthostatic Tachycardia Syndrome Orthostatic Hypotension Near-Syncope, Ente-pe-Kuvr Extracted from: Title:Consult Note- Neurology Author:Hayley Nicholas [...] Ordered: Initial Hospital Care/Day Moderate 55 Minutes 13589 2. Postural orthostatic tachycardia syndrome [POTS] (G90.A: [...] hypotension Diagnostic Tests Pending * Cortisol 03/13/24 [facility] 12-03-2024 Hospital Discharge instructions Patient Education 03/13/2024 [...] Follow these instructions at home: Medicines Take mevx-piu-tjppwtv and prescription medicines only as told by your health care provider. Let your health care provider know about all prescription or mqjy-vzh-hjmjluf medicines you take. These include herbs, vitamins, [...] provider. Document Revised: 10/08/2021 Document Reviewed: 10/08/2021 Sliced Apples Patient Education 2023 [employer]. 03/13/2024 11:57:29 Orthostatic Hypotension Orthostatic Hypotension Blood [...] Follow these instructions at home: Medicines Take kbdl-pao-mlogwla and prescription medicines only as told by [...] provider. Document Revised: 06/11/2021 Document Reviewed: 06/11/2021 S[employer] Patient Education 2023 [employer]. 03/13/2024 11:56:07 Near-Syncope, Akxd-pq-Zcvj Near-Syncope Near-syncope is when you suddenly feel [...] Follow these instructions at home: Medicines Take sxfp-xnd-zzifkna and prescription medicines only as told by [...] away. Call your local emergency services (911 int [place] Do not wait to see [...] provider. Document Revised: 08/06/2021 Document Reviewed: 08/06/2021 Sliced Apples Patient Education 2023 [employer]. 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 With:Mark RIZVI, Benjamin, IRIS Address: When:2 to 4 weeks Comments:Call for followup appointment [facility] 12-03-2024 NoteDischarge Summary Admission and Discharge Information Admitting Physician - Thor RIZVI, Kai Lagos Consulting Physician - Remigio RIZVI, Benjamin Ruiz MD [facility] Cardio, XXXX Admitting Diagnoses: Discharge Diagnoses 1. [...] EST, syncope, Consult and Co-manage Consult to Mixing Machine Attendant - Ordered -- 03/12/24 13:52:06 EST Physical [...] weeks Additional Instructions: Call for followup appointment Anthony Flood MD, NEU Within 2 to 4 weeks [facility] [address] [address]- Additional Instructions: Patient Education Postural Orthostatic Tac (more content not included)...[facility]Result Comment: Electronically Signed By: Moses Smith DO\.br\Date and Time Signed: 03/13/24 12:08 [id number] Note Echocardiology Procedure Exam Date/Time Accession # Ordering Echo Transthoracic 03/13/2024 10:27 EST [id number] Moses Smith DO Complete CPT code 90494 [id number] Reason for Exam (Echo Transthoracic Complete) Syncope Report [facility] [address] [place] [address] Adult Echocardiogram Report Name: JYOTI TORRES Study Date: 03/13/2024 09:56 AM BP: 96/61 mmHg Patient Location: [address] [place] [address] Bed(s) [facility] HR: 57 : 2000 Gender: Female Height: 64 in Age: 23 yrs Ethnicity: [facility] Weight: 174 lb Reason For Study: Syncope [...] Benjamin Flores MD Transcribed by: ROSE Technologist: [facility]12-03-2024 Note Consultation Note Chief Complaint abdomenal [...] sensation in all 4 extremities Cerebellar exam: Sylaql-dt-fnhq reveals no ataxia. Gait is normal Assessment/Plan [...] None. Medications Inpatient ac (more content not included)...[facility]: Result Comment: Electronically Signed By: Hayley Nicholas RN\.br\Date and Time Signed: 03/13/24 07:03 EST\.br\Electronically Co-Signed By: Anthony Flood MD\.br\Date and Time Co-Signed: 03/13/2409:18 EST\.br\Electronically Co- Signed By: Hayley Nicholas RN [id number] NoteHistory and Physical Chief Complaint abd pain [...] Lymph Auto: 10.6 % Low (03/12/24 06:09:00) [place] Auto: 5.7 % (03/12/24 06:09:00) Eos Auto: 0.6 % (03/12/24 06:09:00) Basophil Auto: 0.2 % (03/12/24 06:09:00) Neutro Absolute: 13.5 E9/L High (03/12/24 06:09:00) Lymph Absolute: 1.7 E9/L (03/12/24 06:09:00) [place] Absolute: 0.9 E9/L (03/12/24 06:09:00) Eos Absolute: [...] WBC: 0-5 (03/12/24 06:09:00) (more content not included)...[facility] HospitalComment on above:Result Comment: Electronically Signed By: Moses Smith DO\Date and Time Signed: 03/12/24 12:09 ESTEvaluation noteNo assessment information available [facility] Work Phone: Evaluation note* Diagnosis Palpitations Pre-syncope Syncope and collapse [facility] Well woman exam with routine gynecological exam Routine gynecological examination Missed menses documented in this encounter [facility] HealthcareEvaluation note* Diagnosis Amenorrhea Absence of menstruation Missed menses , unspecified gestational age Encounter for supervision of normal first in first trimester 6 weeks gestation of documented in this encounter [facility] HealthcareEvaluation note* Diagnosis First trimester ([facility]-HCC) state, incidental 11 weeks gestation of ([facility]) Vasovagal episode Syncope and collapse documented in this encounter [facility] HealthcareEvaluation note* Diagnosis Second trimester ([facility]HS-HCC) state, incidental 14 weeks gestation of ([facility]) Vasovagal symptom Screen for STD (sexually transmitted disease) Screening examination for venereal disease Yeast infection documented in this encounter [facility] HealthcareEvaluation note* Diagnosis Second trimester (HHS-HCC) state, incidental 15 weeks gestation of ([facility]-HCC) Vasovagal episode Syncope and collapse Need for maternal serum alpha-protein (MSAFP) screening ([facility]) Screening, , for anatomic survey ([facility]) Encounter for anatomic survey documented in this encounter [facility] HealthcareEvaluation note* Diagnosis Second trimester ([facility]HS-HCC) state, incidental 20 weeks gestation of ([facility]) Vasovagal episode Syncope and collapse documented in this encounter [facility] HealthcareEvaluation note* Diagnosis 24 weeks gestation of ([facility]HS-HCC) Second trimester ([facility]) state, incidental Diabetes mellitus screening Screening for diabetes mellitus Pruritus Unspecified pruritic disorder documented in this encounter [facility] HealthcareHospital course Narrative No data available for this section [facility] Progress note No data available for this section [facility] Chief Complaint and Reason for Visit Chief Complaint tsh complete Advance Directives No Advanced Directives Records Found Advance Directive Response Recorded Date/ Time Advance [...] Extended cardiac holter monitor (3 days-14 day) [place] EXTERNAL ECG REC>48HR<7D REVIEW & INTERPRETATION [place] EXTERNAL ECG REC>48HR<7D RECORDING [place] EXTERNAL ECG REC>7D<15D RECORDING [place] EXTERNAL ECG REC>7D<15D REVIEW & INTERPRETATION Jenna Ba DO [address] [place] [address] [facility] [address] [place] [id number] Referral ID Status Reason Start Date Expiration Date Visits Re quested Visits Authorized [id number] Closed 06/04/2024 09/02/2024 1 1 Additional Source Comments Care Teams (unrecognized sec tion and content) Team Status: Inactive Member Role Status Dates Outreach Community Attending Provider Active PHYSICIAN NO FAMILY Primary Care Provider Active Team Status: Active Member Role Status Dates PHYSICIAN NO FAMILY Primary Care Provider Active Clipper [employer]ters Relationship Specialty Start Date End Date Jenna Ba DO [address] [place] [address] PCP - General Family Medicine 09/29/23 Clipper [employer]ters Relationship Specialty Start Date End Date Jenna Ba MD [address] [place] [address] PCP - General Chief Librarian Circulation Department 03/20/24 [employer]pper [employer]ters Relationship Specialty Start Date End Date Jenna Ba MD [address] [place] [address] PCP - General Chief Librarian Circulation Department 03/20/24 [employer]pper [employer]ters Relationship Specialty Start Date End Date Jenna Ba MD [address] [place] [address] PCP - General Chief Librarian Circulation Department 03/20/24 [employer]pper [employer]ters Relationship Specialty Start Date End Date Jenna Ba MD [address] [place] [address] PCP - General Chief Librarian Circulation Department 03/20/24 [employer]pper Counters Relationship Specialty Start Date End Date Jenna Ba MD [address] [place] [address] PCP - General Chief Librarian Circulation Department 03/20/24 [employer]pper [employer]ters Relationship Specialty Start Date End Date Jenna Ba MD [address] [place] [address] PCP - General Chief Librarian Circulation Department 03/20/24 [employer]pper [employer]ters Relationship Specialty Start Date End Date Jenna Ba MD [address] [place] [address] PCP - General Chief Librarian Circulation Department 03/20/24 [employer]pper Counters Relationship Specialty Start Date End Date Jenna Ba MD [address] [place] [address] PCP - General Chief Librarian Circulation Department 03/20/24 Clipper Counters Relationship Specialty Start Date End Date Jenna Ba MD [address] [place] [address] PCP - General Chief Librarian Circulation Department 03/20/24 [employer]pper [employer]ters Relationship Specialty Start Date End Date Jenna Ba MD [address] [place] [address] PCP - General Chief Librarian Circulation Department 03/20/24 Clipper Counters Relationship Specialty Start Date End Date Jenna Ba MD [address] [place] [address] PCP - General Chief Librarian Circulation Department 03/20/24 Goals (unrecognized section and content) Goals may be documented in a n alternate section No data available for this section INFORMATION SOURCE (unrecogn ized section and content) DATE CREATED AUTHOR 03/14/2022 [facility] DATE CREATED AUTHOR AUTHOR'S ORGANIZ ATION 07/23/2022 [facility] DATE CREATED AUTHOR AUTHOR'S ORGANIZ ATION 03/12/2024 Lozano Alcorn [facility] DATE CREATED AUTHOR AUTHOR'S ORGANIZ ATION 03/14/2024 Lozano Galileo [facility] DATE CREATED AUTHOR AUTHOR'S ORGANIZ ATION 03/16/2024 Lozano Galileo [facility] DATE CREATED AUTHOR AUTHOR'S ORGANIZ ATION 06/08/2024 [facility] DATE CREATED AUTHOR AUTHOR'S ORGANIZ ATION 01/17/2025 [facility] dical Specialists EPIC Reason for Visit (unrecogniz ed section and content) Specialty Diagnoses / Procedures Referred By Contana t Referred To Contact Cardiology Diagnoses Palpitations Pre-syncope Procedures Extended cardiac holter monitor (3 days-14 day) [place] EXTERNAL ECG REC>48HR<7D REVIEW & INTERPRETATION [place] EXTERNAL ECG REC>48HR<7D RECORDING [place] EXTERNAL ECG REC>7D<15D RECORDING [place] EXTERNAL ECG REC>7D<15D REVIEW & INTERPRETATION Jenna Ba DO [address] [place] [address] [facility] [address] [place] [address] Referral ID Status Reason Start Date Expiration Date Visits Re quested Visits Authorized [id number] Closed 06/04/2024 09/02/2024 1 1 Reason Comments Well Women Visit Reason Comments Amenorrhea Reason Comments Routine Visit FOR RECORDS PERTAINING TO PATIENTS WHO [...] BE BASED ON THE PRIMARY CLINICAL RECORDS. [facility] [employer] [facility]. provides no warranty or guarantee of the accuracy or completeness of information in this document.
[2025-01-22 12:29] LABS: Hematocrit 35.8 % (36.0-48.0); Hemoglobin 12.2 g/dL (12.0-16.0); Immature Granulocytes Abs Auto 0.06 10^3/uL (0.00-0.03); Immature Granulocytes Pct Auto 0.5 % (0.0-0.5); Lymphocytes Absolute Auto 1.7 10^3/uL (1.2-3.8); Mean Corpuscular HGB Conc 34.1 g/dL (29.9-35.2); Mean Corpuscular Hemoglobin 32.0 pg (26.7-34.0); Mean Corpuscular Volume 94.0 fL (81.0-99.0); Platelet Count 264 10^3/uL (150-450); Red Blood Count 3.81 10^6/uL (4.20-5.40); White Blood Count 11.6 10^3/uL (4.0-11.0)
[2025-01-22 12:37] LABS: Alanine Aminotransferase 35 U/L (14-59); Albumin Globulin Ratio 0.6; Albumin Level 2.8 g/dL (3.4-5.0); Alkaline Phosphatase 46 U/L (46-116); Aspartate Amino Transferase 13 U/L (15-37); Globulin 4.5 g/dL; Glucose 1 Hour 89 mg/dL (<130); Thyroid Stimulating Hormone 1.684 uIU/mL (0.358-3.740); Total Protein 7.3 g/dL (6.4-8.2)
== END 2025-01-22 10:45 | disposition home or self-care (01) ==
LOC: LAB 10:46
PROVIDERS: PCP Family Medicine; Visit Provider Nurse Practitioner Family
DX: Z13.1 Encounter for screening for diabetes mellitus (principal); L29.9 Pruritus, unspecified
CPT/HCPCS: 36415; 80076; 82239; 82950; 84443; 85025; 86803

== ENCOUNTER 2025-02-16 15:05 | Outpatient (OUT) | payer OTHER, SELFPAY ==
--- OUTSIDE RECORDS SUMMARY | 2025-02-06 08:20 | XMS_ITS | Encounter Summary ---
Author Organization [facility] Address [address] [place] [address] Care Team Providers Care Type Copyist Name Role Phone Emery Flood MD Primary Care Provider Reason for Visit * ReasonCommentsRoutine Visit Encounter Details DateTypeDepartmentCare Team (Latest Contact Info)Tovnnxftwve05/29/2025 9:20 AM EDTRoutine [facility] [address] [place] [id number] Sunshine Mclean PA [address] [place], [facility] Second trimester ([facility]); 27 weeks gestation of ([facility]) Social History Tobacco UseTypesPacks/DayYears UsedDateSmoking Tobacco: Never Assessed Estimated Date of MeeohiokUaovmzcjTru02/24/2026Based on UltrasoundSex and Gender InformationValueDate RecordedSex Assigned at OewetNxirlp83/14/2024 1:04 PM EDT Legal LxmDsaxfy99/15/2023 11:49 PM EDTGender UymgydmyOgijul08/14/2024 1:04 PM EDTSexual AgatuvlcvjjSkmaulgf93/14/2024 1:04 PM EDTdocumented as of this encounter Last Filed Vital Signs Vital SignReadingTime TakenCommentsBlood Utfhobim610/6202/06/2025 9:38 AM EDT Pulse--Temperature--Respiratory Rate--Oxygen Saturation--Inhaled Oxygen Concentration--Ofmpwl96.6 kg (191 lb)02/06/2025 9:38 AM EDTHeight--Body Mass Index32.7905/ 9:07 AM EDTdocumented in this encounter Progress Notes * KEESHA Resendiz - 02/06/2025 9:20 AM EDT Reason for Appointment: Patient ID: Jyoti Torres is a 24 y.o. female who presents for Routine Visit Patient presents today for Return OB appointment. MEDICATIONS No current outpatient medications ALLERGIES No Known Allergies PROBLEMS Active Ambulatory Problems Diagnosis Date Noted Missed menses 08/30/2024 Amenorrhea 09/14/2024 Encounter for supervision of normal first in first trimester ([facility]) 09/14/2024 Vasovagal episode 10/16/2024 Resolved Ambulatory Problems Diagnosis Date Noted No Resolved Ambulatory Problems Past Medical History: Diagnosis Date Positive urine test ([facility]) HISTORY PAST MEDICAL HISTORY SOCIAL HISTORY Past Medical History: Diagnosis Date Positive urine test ([facility]) Social History Tobacco Use Smoking status: Not [...] reviewed. Vitals: Estimated body mass index is 32.17 kg/m?? as calculated from the following: Height as of 08/24/23: 5' 4 . Weight as of 01/15/25: 187 lb 6.4 oz. BP: Patient's last menstrual period was 06/27/2024. ASSESSMENT & PLAN ICD-10-CM 1. Second trimester ([facility]) Z34.92 2. 27 weeks gestation of ([facility]) Z3A.27 POCT urinalysis dipstick manually resulted Return OB: Patient presents today for a routine obstetrics appointment. Patient is currently 27w4d . Patient states she is doing well but has complaints of being tired due to current . Patient has verbalizes frequent movement. labor precautions was discussed/given and patient was instructed to perform kick counts three times a day. Orders Placed This Encounter Procedures POCT urinalysis dipstick manually resulted Follow Up: Patient is to return to office in 4 weeks for routine OB appointment. Documented by Hayley Jj CST on behalf of: KEESHA Resendiz documented in this encounter Plan of Treatment DateTypeDepartmentCare Team (Latest Contact Info)Xrudltljvyl84/12/2025 10:50 AM ESTRoutine [facility] [address] [place] [id number] Morro Doty DO [address] [place] [address] documented as of this encounter Procedures Procedure NamePriorityDate/TimeAssociated DiagnosisCommentsPOCT URINALYSIS YRWSWHXVInsxfkq61/29/2025 9:51 AM EDT 27 weeks gestation of ([facility]) documented in this encounter Results * (ABNORMAL) POCT urinalysis dipstick manually resulted (02/06/2025 9:51 AM EDT) ComponentValueRef RangeTest MethodAnalysis TimePerformed AtPathologist SignatureColor, UAYellowClarity, UAClearGlucose, UANegativeNegative - 2000(110) ++++ mg/dLBilirubin, UANegativeNegative - 4(70) +++ mg/dLKetones, UA NegativeNegative - 160(16) ++++ mg/dLSpec Grav, UA1.0101 - 1.03Blood, UA NegativeNegative - 50 Edin/mcLpH, UA7.55 - 9Protein, UANegativeNegative - 2000(20) ++++ mg/dLUrobilinogen, UA1.00.2 - 12 mg/dLLeukocytes, UA3+Negative - 500+++ Tiffany/mcLNitrite, UANegativeNegative - PositiveSpecimen (Source) Anatomical Location / LateralityCollection Method / VolumeCollection Time Received FbtrGcrpu46/29/2025 9:51 AM EDT Narrative Authorizing ProviderResult TypeResult StatusSunshine Mclean [facility]PE ST[facility] HOSPITALOINT OF CARE TEST ENTER/EDIT ORDERABLESFinal Result documented in this encounter Visit Diagnoses Diagnosis Second trimester ([facility]) state, incidental 27 weeks gestation of ([facility]) documented in this encounter Care Teams Team MemberRelationshipSpecialtyStart DateEnd Date Emery Flood MD [address] [place] [address] PCP - GeneralGeneral Jnxsnvnw81/10/24documented as of this encounter
--- OUTSIDE RECORDS SUMMARY | 2025-02-16 15:09 | XMS_ITS | CCD ---
Author Organization [facility] Care Team Providers Care Skid Wrapper Name Role Phone Community, Outreach Attending Provider [phone] NO FAMILY, PHYSICIAN Primary Care Provider Unava [...] Unavailable ZIEBER, DR ANTHONY Royal Consulting Unavailable DO Tuan Lovell Attending Unavailable Moses Smith Attending Unavailable MD Kai Mcrae Admitting Unavaila ble Anthony Flood Consulting Unavailable EdenAnthony Consulting Unavailable EdenAnthony tristan Consulting Unavailable Anthony Flood Consulting Unavailable Anthony Flood Consulting Unavailable Anthony Flood Consulting Unavailable Anthony Flood Consulting Unavailable EdenAnthony Consulting Unavailable EdenAnthony Consulting [place]available [facility] [place] Consulting Unavailable Jenna BA Primary Care Physician [phone] Irasema Franco Unavailable Unavailable Kai Mcrae Admitting Unavailable BetaarielleorBenjamin Consulting Unavailable Moses Smith Attending Unavailable Benjamin Flores Consulting Unavailable Benjamin Flores Consulting Unavailable Anthony Flood Consulting Unavailable MD Anthony Flood Unavailable Anthony Flood Consulting Unavailable EdenAnthony Consulting Unavailable EdenAnthony Consulting Unavailable EdenAnthony Consulting Unavailable Eden, Anthony Consulting Unavailable Eden, Anthony Consulting Unavailable Eden, Anthony Consulting Unavailable [facility] XXXX Consulting Unavailable MD Kai Mcrae Admitting Unavaila ble Jenna Ba DO Primary Care Provider JENNA BA Attending Unavailable JENNA BA Referring Unavailable JENNA BA Primary Care Unavailable Jenna Ba MD Primary Care Provider [phone] Jenna Ba MD Primary Care Provider [phone] SUNSHINE DING Attending Unavailable MARCOS LUCERO Attending Unavailable EMELI, WALTER Attending Unavailable CARIDAD, SUNSHINE Attending Unavailable MORRO DOTY Attending Unavailable CARIDAD, SUNSHINE Attending Unavailable EMELI, WALTER Attending Unavailable CARIDAD, SUNSHINE Attending Unavailable CARIDAD, SUNSHINE Referring Unavailable Problems Active Problems Problem ClassificationProblemDateDocumented DateEpisodic/ChronicCardiac dysrhythmias (2 sources)Palpitations; Translations: [Palpitations]Onset: EpisodicDiseases of white blood cells (1 source)Leukocytosis; Translations: [Elevated white blood cell count, unspecified]Onset: 39-71-6014PwarxfdLzunffomfqumo and screening for infectious disease (3 sources)Encounter for screening for human papillomavirus (HPV); Translations: [Patient encounter status]Onset: 009345-14-7286OhleoxpwFzfechpie disorders (20 sources)Irregular menstruation, unspecified; Translations: [Missed period] Onset: 426567-75-3118NfwcvteGdbrhom (2 sources)Mycosis; Translations: [Candidiasis, unspecified]94-02-7386Mghpjvcb Nonspecific chest pain (1 source)Chest wall pain; Translations: [Other chest pain]92-43-4375Tilzznpi Other and unspecified benign neoplasm (1 source)Melanocytic nevus of left upper limb; Translations: [Melanocytic nevi of left upper limb, includingshoulder]52-91-2349HamxbhlnBjjpj and unspecified benign neoplasm (1 source)Melanocytic nevus; Translations: [Melanocytic nevi, unspecified] 92-50-7183PaaaourzZlmqx circulatory disease (1 source)Low blood pressure; Translations: [Hypotension, unspecified]Onset: 41-87-8575XyiobntpHffzu circulatory disease (1 source)Postural orthostatic tachycardia syndrome ; Translations: [Postural orthostatic tachycardia syndrome [POTS]]Onset: 70-74-0230YhneovziBkeot circulatory disease (1 source)Orthostatic hypotension; Translations: [Orthostatic hypotension]Onset: 39-50-6566GpuvohzoGmymy endocrine disorders (4 sources)Polycystic ovarian syndrome; Translations: [POLYCYSTIC OVARIAN SYNDROME]Onset: 83-71-6960MxelxviPnbvf inflammatory condition of skin (2 sources)Pruritus, unspecified; Translations: [Unspecified pruritic disorder] 19-12-9594EjvxrgulJnwzk nutritional; endocrine; and metabolic disorders (1 source)Body mass index 30+ - ljpgioe32-51-3865FqksjirRjnas nutritional; endocrine; and metabolic disorders (1 source)Simple cwhboyq67-04-7280KgchshnGpoqy nutritional; endocrine; and metabolic disorders (1 source)Obesity; Translations: [Obesity, unspecified]Onset: 08-18-2020 48-32-6762JtvpsdeBnksj and delivery including normal (20 sources); Translations: [Encounter for supervision of normal , unspecified, unspecified trimester]Onset: EpisodicOther screening for suspected conditions (not mental disorders or infectious disease) (10 sources)Encounter for screening for malignant neoplasm of cervix; Translations: [Alpha-fetoprotein blood test status]Onset: 36-32-3044Mtmpapje Residual codes; unclassified (1 source)Gestation period, 6 weeks; Translations: [Less than 8 weeks gestation of ]46-68-0358FrbyhuwuZbnzkkgq codes; unclassified (2 sources)Gestation period, 11 weeks; Translations: [11 weeks gestation of ]43-76-2746NwikqrspYqprnjum codes; unclassified (2 sources)Gestation period, 14 weeks; Translations: [14 weeks gestation of ]81-05-6313LnljirqrMosnisgr codes; unclassified (2 sources)Gestation period, 15 weeks; Translations: [15 weeks gestation of ]00-72-0901FbswpwkaJshnrnqv codes; unclassified (2 sources)Gestation period, 20 weeks; Translations: [20 weeks gestation of ]32-49-0952YtcymipaBhhmfhrx codes; unclassified (2 sources)Gestation period, 24 weeks; Translations: [24 weeks gestation of ]56-10-1799MpuzzlodKbbnaajg codes; unclassified (2 sources)Gestation period, 27 weeks; Translations: [27 weeks gestation of ]44-76-2349TxkryufgUbmoegxasilk (1 source)Patient encounter mhlenz61-39-6647 Past or Other Problems Problem ClassificationProblemDateDocumented DateEpisodic/ChronicAbdominal pain (3 sources)Abdominal pain; Translations: [Unspecified abdominal pain]Onset: 08-18-2020 Resolved: 88-64-8583PncdxiygVwnxa valve disorders (2 sources)Systolic murmur; Translations: [Cardiac murmur, unspecified]Onset: 997129-86-4314YrpgmhgtMxyqd gastrointestinal disorders (2 sources)Burping; Translations: [Eructation]Onset: 08-18-2020 Resolved: 989854-41-4705KiavhxowIsdoioz (20 sources)Syncope and collapse; Translations: [Syncope and collapse]Onset: 43-01-2591Kivyiuum Results Test NameValueInterpretationReference RangeFacilityUrinalysis macro (dipstick) panel (U)on 95-58-3964Momybyuks, UANegativeNegative - 4(70) +++ mg/dLNOMS HealthcareBlood, UANegativeNegative - 50 Edin/mcLNOMS HealthcareClarity, UAClear NOMS HealthcareColor, UAYellowNOMS HealthcareGlucose, UANegativeNegative - 2000(110) ++++ mg/dLNOMS HealthcareInterpretation and review of laboratory resultsAbnormalNOMS HealthcareKetones, UANegativeNegative - 160(16) ++++ mg/dL NOMS HealthcareLeukocytes, UA3+Negative - 500+++ Tiffany/mcLNOMS HealthcareNitrite, UANegativeNegative - PositiveNOMS HealthcarepH, UA7.55 - 9N[facility] Protein, UANegativeNegative - 1999(20) ++++ mg/dLNOMS HealthcareSpec Grav, UA 1.0101 - 1.03NOMS HealthcareUrobilinogen, UA1.00.2 - 12 mg/dLNOMS HealthcareNOMS HealthcareUrinalysis macro (dipstick) panel (U)on 14-64-9874Sqejbzcla, UA NegativeNegative - 4(70) +++ mg/dLNOMS HealthcareBlood, UANegativeNegative - 50 Edin/mcLNOMS HealthcareClarity, UAClearNOMS HealthcareColor, UAYellowNOMS HealthcareGlucose, UANegativeNegative - 2000(110) ++++ mg/dLNOMS Healthcare Interpretation and review of laboratory resultsAbnormalNOMS HealthcareKetones, UANegativeNegative - 160(16) ++++ mg/dLNOMS HealthcareLeukocytes, UA1+Negative - 500+++ Tiffany/mcLNOMS HealthcareNitrite, UANegativeNegative - PositiveNOMS HealthcarepH, UA6.55 - 9NOMS HealthcareProtein, UANegativeNegative - 2000(20) ++++ mg/dLNOMS HealthcareSpec Grav, UA1.0151 - 1.03NOMS HealthcareUrobilinogen, UA2.00.2 - 12 mg/dLNOMS HealthcareNOMS HealthcareUS OB 14+ WEEKS ANATOMY SCANon 71-87-1174WF OB 14+ WEEKS ANATOMY SCANFINDINGS: A single, live intrauterine is present with normal cardiac rate of 144 beats per minute. Normal activity and amniotic fluid volume. Morphology is grossly normal. The placenta isanterior, inferior aspect 4.7 cm from the closed internal cervical os, 4.1 cm length (small amount of endocervical fluid, no significant funneling of the internal cervical os. The current sonographicage is weeks and days, based on the [...] of delivery of The current estimated weight is375 grams (0 pounds, 13 ounces). IMPRESSION: 1. [...] menstrual period. TRANSCRIBED BY: ELECTRONICALLY SIGNED BY: Juan OhNot AvailableComment on above:Order Comment: US OB ANATOMY SINGLE W US OB CERVICAL LENGTH Estimated Date of Delivery: 05/04/25 Gestational Age as of 11/13/2024: 71n2iLsucklaibe macro (dipstick) panel (U)on 90-95-0949Ypbzdcduy, UANegativeNegative - 4(70) +++ mg/dLNOMS HealthcareBlood, UANegativeNegative - 50 Edin/mcLNOMS HealthcareClarity, UAClearNOMS Healthcare Color, UAYellowNOMS HealthcareGlucose, UANegativeNegative - 1999(110) ++++ mg/dL NOMS HealthcareInterpretation and review of laboratory resultsAbnormalNOMS HealthcareKetones, UANegativeNegative - 160(16) ++++ mg/dLNOMS Healthcare Leukocytes, UA3+Negative - 500+++ Tiffany/mcLNOMS HealthcareNitrite, UANegative Negative - PositiveNOMS HealthcarepH, UA65 - 9NOMS HealthcareProtein, UANegative Negative - 2000(20) ++++ mg/dLNOMS HealthcareSpec Grav, UA1.0151 - 1.03NOMS HealthcareUrobilinogen, UA1.00.2 - 12 mg/dLNOMS HealthcareNOMS Healthcare Urinalysis macro (dipstick) panel (U)on 67-45-6288Kdhhhpbod, UANegativeNegative - 4(70) +++ mg/dLNOMS HealthcareBlood, UANegativeNegative - 50 Edin/mcLNOMS HealthcareClarity, UAClearNOMS HealthcareColor, UAYellowNOMS HealthcareGlucose, UANegativeNegative - 2000(110) ++++ mg/dLNOMS HealthcareInterpretation and review of laboratory resultsNormalNOMS HealthcareKetones, UANegativeNegative - 160(16) ++++ mg/dLNOMS HealthcareLeukocytes, UA1+Negative - 500+++ Tiffany/mcLNOMS HealthcareNitrite, UANegativeNegative - PositiveNOMS HealthcarepH, UA6.55 - 9 NOMS HealthcareProtein, UANegativeNegative - 1999(20) ++++ mg/dLNOMS Healthcare Spec Grav, UA1.0151 - 1.03NOMS HealthcareUrobilinogen, UA1.00.2 - 12 mg/dLNOMS HealthcareNOMS HealthcareUrinalysis macro (dipstick) panel (U)on 11-05-2024 Bilirubin, UANegativeNegative - 4(70) +++ mg/dLNOMS HealthcareBlood, UANegative Negative - 50 Edin/mcLNOMS HealthcareClarity, UAClearNOMS HealthcareColor, UA YellowNOMS HealthcareGlucose, UANegativeNegative - 1999(110) ++++ mg/dLNOMS HealthcareInterpretation and review of laboratory resultsNormalNOMS Healthcare Ketones, UANegativeNegative - 160(16) ++++ mg/dLNOMS HealthcareLeukocytes, UA NegativeNegative - 500+++ Tiffany/mcLNOMS HealthcareNitrite, UANegativeNegative - PositiveNOMS HealthcarepH, UA65 - 9NOMS HealthcareProtein, UANegativeNegative - 1999(20) ++++ mg/dLNOMS HealthcareSpec Grav, UA1.011 - 1.03N[facility] Healthcare Urobilinogen, UA0.20.2 - 12 mg/dLNOMS HealthcareNOMS HealthcareUrinalysis macro (dipstick) panel (U)on 25-31-7252Yqsixhmkh, UANegativeNegative - 4(70) +++ mg/dL NOMS HealthcareBlood, UANegativeNegative - 50 Edin/mcLNOMS HealthcareClarity, UA ClearNOMS HealthcareColor, UAYellowNOMS HealthcareGlucose, UANegativeNegative - 1999(110) ++++ mg/dLNOMS HealthcareInterpretation and review of laboratory resultsNormalNOMS HealthcareKetones, UANegativeNegative - 160(16) ++++ mg/dLNOMS HealthcareLeukocytes, UANegativeNegative - 500+++ Tiffany/mcLNOMS HealthcareNitrite, UANegativeNegative - PositiveNOMS HealthcarepH, UA85 - 9NOMS HealthcareProtein, UANegativeNegative - 2000(20) ++++ mg/dLNONH HealthcareSpec Grav, UA1.011 - 1.03 NOMS HealthcareUrobilinogen, UA0.20.2 - 12 mg/dLNORusk Rehabilitation Center Healthcare ALL CBC WITH AUTO DIFFon 22-85-7975DXMRLYKDL ABSOLUTE AUTO0.1NOMS Healthcare Basophils/100 WBC (Bld)0.5 %0.2 - 2.0 %NOMS HealthcareEosinophils/100 WBC (Bld) 1.3 %0.9 - 7.0 %[facility] HospitalErythrocyte distribution width (RBC) [Ratio]11.9 %11.0 - 15.0 %[facility] HospitalHematocrit (Bld) [Volume fraction]38.6 %36.0 - 48.0 %[facility] HospitalHemoglobin (Bld) [Mass/Vol]12.9 g/dL12.0 - 16.0 g/dLI-70 Community HospitalIMMATURE GRANULOCYTES ABS AUTO0.03NOMercy Hospital South, formerly St. Anthony's Medical CenterImmature granulocytes/100 WBC (Bld)0.2 %0.0 - 0.5 %[facility] HospitalInterpretation and review of laboratory resultsAbnormalI-70 Community HospitalLYMPHOCYTES ABSOLUTE AUTO2.9 NOMBarnes-Jewish West County HospitalLymphocytes/100 WBC (Bld)23.1 %20.5 - 60.0 %[facility] HospitalH (RBC) [Entitic mass]31.4 pg26.7 - 34.0 pgReynolds County General Memorial HospitalHC (RBC) [Mass/Vol] 33.4 g/dL29.9 - 35.2 g/dLReynolds County General Memorial HospitalV (RBC) [Entitic vol]93.9 fL81.0 - 99.0 fLI-70 Community HospitalMONOCYTES ABSOLUTE AUTO0.8NONH HealthcareMonocytes/100 WBC (Bld)6.5 %1.7 - 12.0 %[facility] HospitalNEUTROPHILS ABSOLUTE AUTO8.7HighI-70 Community HospitalNeutrophils/100 WBC (Bld)68.4 %43.0 - 75.0 %[facility] HospitalPlatelet mean volume (Bld) [Entitic vol]9.9 fL9.5 - 13.5 fLI-70 Community HospitalTBH EO #0.2NOMS HealthcareTB [id number] HealthcareTB RBC4.11LowNOMS HealthcareTB WBC12.7High NOMS HealthcareCLINISYNCNOMS HealthcareHCG ( test) Ql (U)on 09-14-2024 Interpretation and review of laboratory resultsAbnormalNOMS HealthcarePreg Test, UrPositiveNegativeNOMS HealthcareNONH HealthcareUS OB TRANSVAGINALon 09-14-2024 [place] [address] Ultrasound Report Signed Patient: JYOTI TORRES MR#: [id number] : 2000 Acct:[id number] Age/Sex: 23 / F ADM Date: 09/14/24 Loc: US Attending Dr: Morro Doty D.O. Ordering Physician: Morro Doty D.O. Date of Service: 09/14/24 Procedure(s): US OB transvaginal Accession Number(s): [id number] cc: Morro Doty D.O.; JENNA BA [place] [address] Patient Name: JYOTI TORRES MRN: [id number] date: 2000 Sex: F Assigned Patient Location: Current Patient Location: US Accession/Order Number: [id number] Exam Date: 09/14/2024 11:08 Report Date: 09/14/2024 [...] Sherwood M.D. 09/14/2024 11:11 AM Dictation Location: [place] [address] Electronically authenticated by: [id number] Y Date: 09/14/2024 11:11 Dictated By: Анна Sherwood M.D. Signed By: 09/14/24 1114 DD/ 1111 TD/TT: [employer]:ROCIOHRadiology, Radiologist, - 09/14/2024 [place] [address] Ultrasound Report Signed Patient: JYOTI TORRES MR#: [id number] : 2000 Acct:[id number] Age/Sex: 23 / F ADM Date: 09/14/24 Loc: US Attending Dr: Morro Doty D.O. Ordering Physician: Morro Doty D.O. Date of Service: 09/14/24 Procedure(s): US OB transvaginal Accession Number(s): [id number] cc: Morro Doty D.O.; JENNA BA [place] [id number] Patient Name: JYOTI TORRES MRN: [id number] date: 2000 Sex: F Assigned Patient Location: US Current Patient Location: US Accession/Order Number: [id number] Exam Date: 09/14/2024 11:08 Report Date: 09/14/2024 [...] Sherwood M.D. 09/14/2024 11:11 AM Dictation Location: [place] [address] Electronically authenticated by: [id number] Y Date: 09/14/2024 11:11 Dictated By: Анна Sherwood M.D. Signed By: 09/14/24 1114 DD/ 1111 TD/TT: [employer] Work[employer]: [facility] HospitalRadiology Study observation (narrative)[facility] HospitalUS OB TRANSVAGINALOrdered By: Radiologist Radiology on 71-54-0766BQAD [employer] Work Phone: US OB TRANSVAGINALon [phone] OB TRANSVAGINALEXAM: US OB TRANSVAGINAL HISTORY: Dating. COMPARISON: None available. TECHNIQUE: Two-dimensional transvaginal grayscale ultrasound imaging of the pelvis was performed. Color flow Doppler imaging of the ovaries was also performed. FINDINGS: UTERUS The uterus is anteverted in position and demonstrates a normal, homogeneous echotexture. The cervixmeasures 3.2 cm in length. ENDOMETRIUM 1.7 cm [...] II, MD, PHD at 31-Aug-2024 12:18:24 PM [facility] TeleradiologyNormalNot AvailableComment on above:Order Comment: US OB TRANSVAGINAL No LMP recorded (within months).RECURRENT VAGINITIS (HTRX)on 28-78-3567SZIDBINDB METVBLJ2FPND HealthcareATOPOBIUM VAGINAENot detectedNOMS HealthcareBVAB 2,3 (BACTERIAL VAGINOSIS ASSOCIATED BACTERIA 2, 3); MOBILUNCUS [id number] Healthcare BVAB 2,3 (BACTERIAL VAGINOSIS ASSOCIATED BACTERIA 2, 3); MOBILUNCUS SPPNot detectedNOMS HealthcareCANDIDA ALBICANS, PARAPSILOSIS, BVVQKZSFJG00.742Abnormal NOMS HealthcareCANDIDA ALBICANS, PARAPSILOSIS, TROPICALISDetectedAbnormalNOMS HealthcareCANDIDA PYFWQPSQ6IPYY HealthcareCANDIDA GLABRATANot detectedNOMS HealthcareCANDIDA DVDFXN2VGYX HealthcareCANDIDA KRUSEINot detectedNOMS HealthcareCHLAMYDIA ZDRBQFDFJWZ7FUOY HealthcareCHLAMYDIA TRACHOMATISNot detected NOMS HealthcareGARDNERELLA ZDWINCIFX9FWOO HealthcareGARDNERELLA VAGINALISNot detectedNOMS HealthcareInterpretation and review of laboratory resultsAbnormal NOMS HealthcareMEGASPHAERA (TYPES 1, 2)0NOMS HealthcareMEGASPHAERA (TYPES 1, 2) Not detectedNOMS HealthcareMYCOPLASMA YNMFJCWLZT6ACJD HealthcareMYCOPLASMA GENITALIUMNot detectedNOMS HealthcareNEISSERIA NEIOYNCVWYZ8MZXU Healthcare NEISSERIA GONORRHOEAENot detectedNOMS HealthcareTRICHOMONAS KADGZMKPQ9UUWM HealthcareTRICHOMONAS VAGINALISNot detectedNOMS HealthcareNOMS HealthcareHCG ( test) Ql (U)on 56-77-9073Gcgbiwgjyhigbn and review of laboratory resultsAbnormalNOMS HealthcarePreg Test, UrPositiveNegativeNOMS HealthcareNOMS HealthcareTBH PREG QUANT HCGon 99-44-4042KGF MDFVNRWJJHHH991iCH/mLNOMS HealthcareComment on above:5-50 0.2-1 WEEK 50-500 1-2 WEEKS 100-5,000 2-3 WEEKS 500-10,000 3-4 WEEKS 1,000-50,000 4-5 WEEKS 10,000-100,000 5-6 WEEKS 15,000-200,000 6-8 WEEKS 10,000-100,000 2-3 MONTHS CLINISYNCNOMS HealthcareCortisolon 91-00-8191Atxectxy [Mass/Vol]11.0 microgram/dLInvalid Interpretation Code6.2-19.4FUpper Valley Medical Center Comment on above:Result Comment: Please Note: The reference interval and flagging for this test is for an AM collection. If this is a PM collection please use: Cortisol PM: 2.3-11.9 Performed at: [facility] [id number] PhD Gilles Morrisformed By: #### [id number] #### [facility] [address], [place] [address]IZYcj 60-47-8548Cnaoe gap [Moles/Vol]8 mmol/LNormal6-16[facility] HospitalComment on above:Performed By: #### [id number] #### [facility] [address], [place] [address]Xzmbmfx [Mass/Vol]8.3 mg/dLLow8.9-11.1FUpper Valley Medical CenterComment on above:Performed By: #### [id number] #### [facility] [address], [place] [address]Gdsurynu [Moles/Vol]109 mmol/BWejzav396-232SxviveTrihealth Bethesda North HospitalComment on above:Performed By: #### [id number] #### [facility] [address], [place] [address]TP3 [Moles/Vol]27 mmol/NWugbyq66-62SxnbbwTrihealth Bethesda North Hospital Comment on above:Performed By: #### [id number] #### [facility] [address], [place] [address]Xdmtrsomne [Mass/Vol]0.5 mg/dLNormal0.5-1.3FUpper Valley Medical CenterComment on above:Performed By: #### [id number] #### [facility] [address], [place] [address]Eoimwpl [Mass/Vol]104 mg/nRWfqtte12-576TwdvrkTrihealth Bethesda North HospitalComment on above:Performed By: #### [id number] #### [facility] [address], [place] [address]Cftlteffc [Moles/Vol]4.0 mmol/LNormal3.5-5.3FUpper Valley Medical CenterComment on above:Performed By: #### [id number] #### [facility] [address] [place] [address]Cbtnme [Moles/Vol]140 mmol/GCgxdgs308-879SymsipTrihealth Bethesda North HospitalComment on above:Performed By: #### [id number] #### [facility] [address] [place] [address]Urlb nitrogen [Mass/Vol]10 mg/dLNormal5-21[facility] HospitalComment on above:Performed By: #### [id number] #### [facility] [address] [place] [address]Elbq nitrogen/Creatinine [Mass ratio]20 No GbnzlYkebly50-57 [facility] HospitalComment on above:Performed By: #### [id number] #### [facility] [address] [place] [address]NHS w/ Auto Diffon 85-57-6312Uktffoeaw/100 WBC (Bld)0.8 %Normal 0.0-2.0[facility] HospitalComment on above:Performed By: #### [id number] #### [facility] [address] [place] [address]Nsetiaooz/Leukocytes Auto (Bld) [Pure # fraction]0.1 E9/LNormal 0.0-0.2FUpper Valley Medical CenterComment on above:Performed By: #### [id number] #### [facility] [address] [place] [address]Njebfpdyxco (Bld) [#/Vol]0.2 E9/LNormal0.0-0.5FUpper Valley Medical CenterComment on above:Performed By: #### [id number] #### [facility] [address], [place] [address]Pjbjpzrudmk/100 WBC (Bld)3.6 %Normal0.0-8.0[facility] HospitalComment on above:Performed By: #### [id number] #### [facility] [address], [place] [address]Nfpjrzpqsbg distribution width (RBC) [Ratio]12.6 %Normal 10.9-14.2FUpper Valley Medical CenterComment on above:Performed By: #### [id number] #### [facility] [address] [place] [address]Lhzlhobfbq (Bld) [Volume fraction]35.7 %Abxnvt21.0-46.0[facility] HospitalComment on above:Performed By: #### [id number] #### [facility] [address], [place] [address]Ogeeemrwzl (Bld) [Mass/Vol]12.6 g/hAOmgmlr70.0-16.0[facility] HospitalComment on above:Performed By: #### [id number] #### [facility] [address], [place] [address]Fapekousuhw (Bld) [#/Vol]2.1 E9/LNormal1.0-4.0[facility] HospitalComment on above:Performed By: #### [id number] #### [facility] [address], [place] [address]Uultmaonygr/100 WBC (Bld)30.7 %Xxqsfe22.0-50.0[facility] HospitalComment on above:Performed By: #### [id number] #### [facility] [address], [place] [address]UVR (RBC) [Entitic mass]32.9 joYxtfuh42.0-34.0[facility] HospitalComment on above:Performed By: #### [id number] #### [facility] [address] [place] [address]DLOH (RBC) [Mass/Vol]35.3 g/gTScwkde62.4-36.0[facility] HospitalComment on above:Performed By: #### [id number] #### [facility] [address] [place] [address]TOI (RBC) [Entitic vol]93.4 iKUdvekd15.0-100.0[facility] HospitalComment on above:Performed By: #### [id number] #### [facility] [address] [place] [address]Cosptjwcb (Bld) [#/Vol]0.6 E9/LNormal0.2-1.0[facility] HospitalComment on above:Performed By: #### [id number] #### [facility] [address] [place] [address]Swvgaykmppi (Bld) [#/Vol]3.9 E9/LNormal2.0-7.5FUpper Valley Medical CenterComment on above:Performed By: #### [id number] #### [facility] [address] [place] [address]Ynmdiwrfocb/100 WBC (Bld)55.7 %Ilfzib55.0-75.0[facility] HospitalComment on above:Performed By: #### [id number] #### [facility] [address] [place] [address]Ziokdbhd161.0 E9/OArrpjz592.0-500.0[facility] Comment on above:Performed By: #### [id number] #### [facility] [address] [place] [address]Cjybsytu mean volume (Bld) [Entitic vol]7.8 fLNormal6.4-10.8 [facility] HospitalComment on above:Performed By: #### [id number] #### [facility] [address], [place] [address]DBN (Bld) [#/Vol]3.8 E12/LLow4.3-5.9[facility] Comment on above:Performed By: #### [id number] #### [facility] [address], [place] [address]KPR corrected for nucl RBC Auto (Bld) [#/Vol]7.0 E9/LNormal 4.0-11.0[facility] HospitalComment on above:Performed By: #### [id number] #### [facility] [address], [place] [address]XVFZVWASYRwnekgm By: SYSTEM SYSTEM on 70-60-0531Fnwdc gap [Moles/Vol]8 mmol/LNormal6 - 16 mEq/LRemisol ChemCalcium [Mass/Vol]8.3 mg/dLLow 8.9 - 11.1 mg/dLRemisol ChemChloride [Moles/Vol]109 mmol/XQpdove657 - 111 mmol/L Remisol ChemCO2 [Moles/Vol]27 mmol/MHpswpg50 - 31 mmol/LRemisol ChemCreatinine [Mass/Vol]0.5 mg/dLNormal0.5 - 1.3 mg/dLRemisol HhqegVXO984 mL/min/1.73 r0Qpfiaz >=59mL/min/1.73 a2Ejscqxm ChemGlucose [Mass/Vol]104 mg/yYUstdlx72 - 199 mg/dL Remisol ChemPotassium [Moles/Vol]4.0 mmol/LNormal3.5 - 5.3 mmol/LRemisol Chem Sodium [Moles/Vol]140 mmol/FKhyxeg463 - 145 mmol/LRemisol ChemTSH Qn5.22 m[IU]/L Normal0.34 - 5.60 mcIU/mLRemisol ChemUrea nitrogen [Mass/Vol]10 mg/dLNormal5 - 21 mg/dLRemisol ChemUrea nitrogen/Creatinine [Mass ratio]20 mg/shCanrow20 - 20 Remisol ChemDischarge Note-Nursingon [id number] Note-NursingDischarge Note-Nursing JYOTI TORRES :2000 Visit Date:03/12/2024 Inpatient Discharge Instructions Your Care Team Admitting Physician - Thor RIZVI, Kai Lagos Consulting Physician - Remigio RIVZI, Benjamin Ruiz MD [facility] [place], [place]X Reason for Your Visit abdomenal [...] with a neurologist as well as a benefits specialist recruiter. New Follow Up Appointments after Discharge Follow Up with Remigio RIZVI, KYLAH Esteves When: 03/28/2024 01:40 PM EST Comments: Will being Hue Bentley METEOROLOGY INSTRUCTOR at this appointment. [facility] [place] [address]- Follow Up with Jenna BA When: 03/15/2024 09:45 AM EST Where: [address] [facility] [place] [address] [phone] [facility] (1) Follow Up with Mark RIZVI, IRIS [...] 4 mmol/L (03/13/24 06:16:00) MCHC: 35.3 gm/dL (03/13/24:16:00) Chloride: 109 mmol/L (03/13/24 06:16:00) RDW: 12.6 [...] down and after you (more content not included)...[facility] Healthcare SystemHEMATOLOGYOrdered By: SYSTEM SYSTEM on 92-76-6591Ftaagtpqs/100 WBC (Bld)0.8 %Normal0.0 - 2.0 %Remisol Heme Basophils/Leukocytes Auto (Bld) [Pure # fraction]0.1 E9/LNormal0.0 - 0.2 E9/L Remisol HemeEosinophils (Bld) [#/Vol]0.2 E9/LNormal0.0 - 0.5 E9/LRemisol Heme Eosinophils/100 WBC (Bld)3.6 %Normal0.0 - 8.0 %Remisol HemeErythrocyte distribution width (RBC) [Ratio]12.6 %Kwsbzp38.9 - 14.2 %Remisol HemeHematocrit (Bld) [Volume fraction]35.7 %Vywemv90.0 - 46.0 %Remisol HemeHemoglobin (Bld) [Mass/Vol]12.6 g/wYHpbgkb52.0 - 16.0 gm/dLRemisol HemeLymphocytes (Bld) [#/Vol] 2.1 E9/LNormal1.0 - 4.0 E9/LRemisol HemeLymphocytes/100 WBC (Bld)30.7 %Normal 14.0 - 50.0 %Remisol HemeMCH (RBC) [Entitic mass]32.9 puDthubz71.0 - 34.0 pg Remisol HemeMCHC (RBC) [Mass/Vol]35.3 g/gZHkptxq78.4 - 36.0 gm/dLRemisol HemeMCV (RBC) [Entitic vol]93.4 xWJpbigw23.0 - 100.0 fLRemisol HemeMonocytes (Bld) [#/Vol]0.6 E9/LNormal0.2 - 1.0 E9/LRemisol HemeMonocytes/100 WBC (Bld)9.2 % Normal4.0 - 14.0 %Remisol HemeNeutrophils (Bld) [#/Vol]3.9 E9/LNormal2.0 - 7.5 E9/LRemisol HemeNeutrophils/100 WBC (Bld)55.7 %Bdsvvo65.0 - 75.0 %Remisol Heme Ufksgvtr417.0 E9/VIdxpek965.0 - 500.0 E9/LRemisol HemePlatelet mean volume (Bld) [Entitic vol]7.8 fLNormal6.4 - 10.8 fLRemisol HemeRBC (Bld) [#/Vol]3.8 E12/LLow 4.3 - 5.9 E12/LRemisol HemeWBC corrected for nucl RBC Auto (Bld) [#/Vol]7.0 E9/L Normal4.0 - 11.0 E9/LRemisol HemeInpatient Clinical Summaryon 03-13-2024 Inpatient Clinical SummaryInpatient Clinical Summary [address] [address] Clinical Summary Person Information: Name: JYOTI TORRES Age: 23 Years : 2000 Sex: Female PCP: Jenna BA DO Marital Status: Race: White Ethnicity: Non- or Language: Persian Visit Id: Visit Reason: Abdominal pain; ABD PAIN /PASSED OUT Speciality: Acuity: Enc Type: Observation Med Service: Medical Arrival: 03/12/2024 05:43:15 Discharge: Dispo Type: Admitted as IP to this Hosp Address: [address] [place], [place] [id number] Provider Notes: Diagnosis: 1:Syncope; 2:Postural orthostatic tachycardia [...] Physician: Benjamin Flores MD; Anthony Flood MD; [facility] [place], XXXX Referring Physician: Follow up: With: Address: When: Jenna BA [address] [facility] [place] [address] [phone] [facility] (1) 03/15/2024 9:45 AM With: Address: When: Anthony Flood MD, [place] [address] [place] [address] 03/28/2024 1:40 PM Comments: Will being Hue Bentley NP at this appointment. With: Address: When: Benjamin Flores MD, IRIS Within 2 to 4 weeks Comments: Call for followup appointment Patient Education Information: Postural Orthostatic Tachycardia Syndrome; Orthostatic Hypotension; Near- Syncope, Zmpi-gg-KbwlUesblyZkfbyu [facility] CenterInpatient Patient Summary on 95-37-1420Aevmigzaf Patient SummaryInpatient Patient Summary [address] [address] Patient Discharge Instructions PERSON INFORMATION Name: JYOTI TORRES Date of : 2000 Current Date: 03/13/2024 12:34:22 PHYSICIANS Admitting Physician: Thor RIZVI, Kai Lagos Primary Care Physician: Jenna BA DO PCP Phone Number: [phone] Comment: Discharge Diagnosis: 1:Syncope; 2:Postural orthostatic tachycardia [...] with a neurologist as well as a benefits specialist recruiter. Primary Care Physician to provide the following pending test results: None Follow up: With: Address: When: Jenna BA [address] [facility] [place] [address] [phone] [facility] (1) 03/15/2024 9:45 AM With: Address: When: Remigio RIZVI, KYLAH Esteves [facility] [address] [place] [address] 03/28/2024 1:40 PM Comments: Will [...] (immune system) to attack healthy organs. These arecalled autoimmune diseases. ? Losing a lot of [...] change with blood pressure. The blood tests willbe done when you are lying down and when you are standing up. You may have other tests to check for conditions or diseases that are associated with POTS. (more content not included)...[facility] Interdisciplinary Note - Case Manageron 20-04-4571Evcuqdpuhxtdrmcqk Note - Case ManagerInterdisciplinary Note - Motor Equipment Commanding Officer CRM to room 327 Patient is awake, alert and oriented. Patient is from home with her spouse. He is [place] ride at [place]. He is present in room. Patient verified PCP, DME and insurance. Patient came in as observation. Patient had abdomen pain with syncopal episode. Patient is assigned to Dr Smith, see notes. Patient has n eurology and cardiology on case. Patient has SS consutl for advance directives. Patient is not interested at this time. Patient had CT showed inflammation around ovary. It was f/u with US of pelvis and this was negative. Patient declined any DC needs for DME, Paramed and care. Patient was provided CRM contact, white board updated. CRM following Dc date TBDNBlanchard Valley Health SystemComment on above:Result Comment: Electronically Signed By: Radha Trevino\.june\Date and Time Signed: 03/13/24 09:28 [facility] With T4fr Reflexon 17-15-3683GMM Qn5.22 m[IU]/LNormal0.34-5.60 [facility] HospitalComment on above:Performed By: #### [id number] #### [facility] [address], [place] [address]kHHTdh 29-53-0011nCBH640 mL/min/1.73 o7Upinsa>=59[facility] HospitalComment on above:Performed By: #### [id number] #### [facility] [address], [place] [address]JODst 40-32-9329Owprk gap [Moles/Vol]9 mmol/LNormal6-16[facility] HospitalComment on above:Performed By: #### [id number] #### [facility] [address], [place] [address]Yjmdguv [Mass/Vol]9.0 mg/dLNormal8.9-11.1FUpper Valley Medical CenterComment on above:Performed By: #### [id number] #### [facility] [address], [place] [address]Yfnragdc [Moles/Vol]106 mmol/BTxriwv150-595XlsqmkTrihealth Bethesda North HospitalComment on above:Performed By: #### [id number] #### [facility] [address], [place] [address]LX1 [Moles/Vol]27 mmol/QMsvgnl59-91JuswtwTrihealth Bethesda North Hospital Comment on above:Performed By: #### [id number] #### [facility] [address], [place] [address]Khoyaygyai [Mass/Vol]0.6 mg/dLNormal0.5-1.3FUpper Valley Medical CenterComment on above:Performed By: #### [id number] #### [facility] [address], [place] [address]Pglccbo [Mass/Vol]108 mg/zXUrbrsk76-715CyeapnTrihealth Bethesda North HospitalComment on above:Performed By: #### [id number] #### [facility] [address], [place] [address]Idtqzsmkd [Moles/Vol]3.9 mmol/LNormal3.5-5.3FUpper Valley Medical CenterComment on above:Performed By: #### [id number] #### [facility] [address], [place] [address]Mkeanq [Moles/Vol]138 mmol/OQfxyul273-894HofwqdTrihealth Bethesda North HospitalComment on above:Performed By: #### [id number] #### [facility] [address], [place] [address]Ujcz nitrogen [Mass/Vol]11 mg/dLNormal5-21[facility] HospitalComment on above:Performed By: #### [id number] #### [facility] [address], [place] [address]Uqxz nitrogen/Creatinine [Mass ratio]18 No CsdxxBsmgij21-67 [facility] HospitalComment on above:Performed By: #### [id number] #### [facility] [address] [place] [address]CSR w/ Auto Diffon 10-70-8855Nmpvfxnyz/100 WBC (Bld)0.2 %Normal 0.0-2.0[facility] HospitalComment on above:Performed By: #### [id number] #### [facility] [address] [place] [address]Ogazjfezg/Leukocytes Auto (Bld) [Pure # fraction]0.0 E9/LNormal 0.0-0.2FUpper Valley Medical CenterComment on above:Performed By: #### [id number] #### [facility] [address] [place] [address]Siheqpeeibu (Bld) [#/Vol]0.1 E9/LNormal0.0-0.5FUpper Valley Medical CenterComment on above:Performed By: #### [id number] #### [facility] [address] [place] [address]Onftpgjiwlm/100 WBC (Bld)0.6 %Normal0.0-8.0[facility] HospitalComment on above:Performed By: #### [id number] #### [facility] [address], [place] [address]Tqxymagckaw distribution width (RBC) [Ratio]12.5 %Normal 10.9-14.2FUpper Valley Medical CenterComment on above:Performed By: #### [id number] #### [facility] [address] [place] [address]Iyharayrhi (Bld) [Volume fraction]40.5 %Ivhgse64.0-46.0[facility] HospitalComment on above:Performed By: #### [id number] #### [facility] [address] [place] [address]Swugtvujmb (Bld) [Mass/Vol]13.7 g/iQInuwrn21.0-16.0[facility] HospitalComment on above:Performed By: #### [id number] #### [facility] [address] [place] [address]Qfrdlrvnboa (Bld) [#/Vol]1.7 E9/LNormal1.0-4.0[facility] HospitalComment on above:Performed By: #### [id number] #### [facility] [address] [place] [address] 99[address]Lalqsdjtowk/100 WBC (Bld)10.6 %Low14.0-50.0[facility] HospitalComment on above:Performed By: #### [id number] #### [facility] [address] [place] [address]HTW (RBC) [Entitic mass]31.4 gkLqapwy58.0-34.0[facility] HospitalComment on above:Performed By: #### [id number] #### [facility] [address] [place] [address]67[address]XZKU (RBC) [Mass/Vol]33.8 g/eLZjpfsg94.4-36.0[facility] HospitalComment on above:Performed By: #### [id number] #### [facility] [address] [place] [address]MTG (RBC) [Entitic vol]92.9 bBMzioon58.0-100.0[facility] HospitalComment on above:Performed By: #### [id number] #### [facility] [address] [place] [address]Snhvosdog (Bld) [#/Vol]0.9 E9/LNormal0.2-1.0[facility] HospitalComment on above:Performed By: #### [id number] #### [facility] [address] [place] [address]Cehjbecttxp (Bld) [#/Vol]13.5 E9/LHigh2.0-7.5FUpper Valley Medical CenterComment on above:Performed By: #### [id number] #### [facility] [address] [place] [address]Drubcqmdzuf/100 WBC (Bld)82.9 %High36.0-75.0[facility] HospitalComment on above:Performed By: #### [id number] #### [facility] [address] [place] [address]79[address]Npskknzi624.0 E9/VQbbtlr613.0-500.0[facility] Comment on above:Performed By: #### [id number] #### [facility] [address] [place] [address]Jctvehdj mean volume (Bld) [Entitic vol]7.6 fLNormal6.4-10.8 [facility] HospitalComment on above:Performed By: #### [id number] #### [facility] [address] [place] [address] 17[address]BVI (Bld) [#/Vol]4.4 E12/LNormal4.3-5.9[facility] HospitalComment on above:Performed By: #### [id number] #### [facility] [address] [place] [address] 298[address]TIT corrected for nucl RBC Auto (Bld) [#/Vol]16.3 E9/LHigh 4.0-11.0[facility] HospitalComment on above:Performed By: #### [id number] #### [facility] [address] [place], [place] [address]HHYBXJIEIPbcneco By: SYSTEM SYSTEM on 73-81-7507Anmqowi [Mass/Vol]4.1 g/dLNormal3.3 - 5.0 gm/dLRemisol ChemAlbumin/Globulin [Mass ratio] 1.5 {ratio}Normal1.1 - 2.2Remisol ChemALP [Catalytic activity/Vol]38 [iU]/d Kodrxv13 - 98 Int._Unit/LRemisol ChemALT No additional P-5'-P [Catalytic activity/Vol]14 [iU]/dNormal6 - 46 Int._Unit/LRemisol ChemAnion gap [Moles/Vol]9 mmol/LNormal6 - 16 mEq/LRemisol ChemAST [Catalytic activity/Vol]16 [iU]/dNormal 5 - 43 Int._Unit/LRemisol ChemBilirubin [Mass/Vol]0.7 mg/dLNormal0.0 - 1.1 mg/dL Remisol ChemBilirubin.direct [Mass/Vol]0.1 mg/dLNormal0.0 - 0.4 mg/dLRemisol ChemBilirubin.indirect [Mass or moles/Vol]0.6 mg/dLNormal0.1 - 0.9 mg/dLRemisol ChemCalcium [Mass/Vol]9.0 mg/dLNormal8.9 - 11.1 mg/dLRemisol ChemChloride [Moles/Vol]106 mmol/LFtjcpw799 - 111 mmol/LRemisol ChemCO2 [Moles/Vol]27 mmol/L Uuphhu97 - 31 mmol/LRemisol ChemCreatinine [Mass/Vol]0.6 mg/dLNormal0.5 - 1.3 mg/dLRemisol MzsyoQLJ431 mL/min/1.73 m9Obhemw>=59mL/min/1.73 t4Qtzcmmf Chem Globulin (S) [Mass/Vol]2.8 g/dLNormal1.4 - 4.0 gm/dLRemisol ChemGlucose [Mass/Vol]108 mg/jZIgeamd84 - 199 mg/dLRemisol ChemLipase [Catalytic activity/Vol]19 U/TUeuzwe44 - 58 unit/LRemisol ChemPotassium [Moles/Vol]3.9 mmol/LNormal3.5 - 5.3 mmol/LRemisol ChemProtein [Mass/Vol]6.9 g/dLNormal6.0 - 7.8 gm/dLRemisol ChemSodium [Moles/Vol]138 mmol/BHwbwrp928 - 145 mmol/LRemisol ChemTroponin HSpg/mLLow10.10 - 27.10 pg/mLRemisol ChemComment on above: Interpretive Data: The 95% CI (Confidence Interval) PPV (Positive Predictive Value) for myocardial infarction in females is 38 pg/mL, in males 51 pg/mL. The results should be used in conjunction withclinical conditions of myocardial infarction. (Access High Sensitivity Troponin I Instructions For Use, Robin [employer] [place] [employer] [place], November 2017)Urea nitrogen [Mass/Vol]11 mg/dLNormal5 - 21 mg/dLRemisol ChemUrea nitrogen/Creatinine [Mass ratio]18 mg/ykPflerj12 - 20Remisol ChemCT Abdomen/Pelvis w/ Contraston [id number] Abdomen/Pelvis w/ ContrastExam Date/Time: 03/12/2024 06:49 EST Reason for Exam: [...] amount in ml's: 100 Rectal Contrast Given? [facility]NormalL[facility] Clinical Summaryon [id number] Clinical SummaryED Clinical Summary [place] [address] ED Clinical Summary Person Information Name: JYOTI TORRES [facility]hu [facility] Age: 23 Years : 2000 Sex: Female Language: Persian PCP: Jenna BA DO Marital Status: Visit Id: Visit Reason: Abdominal pain; ABD PAIN /PASSED OUT Speciality: Acuity: 3 Enc Type: Observation Med Service: Medical Arrival: 03/12/2024 05:43:15 Discharge: LOS: 000 07:16 Checkin: 03/12/2024 05:43:15 Checkout: 03/12/2024 12:59:23 Dispo Type: Admitted as IP to this Hosp EVENTS: Event Name Event Status Request Date/Time [...] 03/12/2024 12:07:26 Lab Request 03/12/2024 12:07:26 ADDRESS: [address] [place] [id number] PHYS DOC NOTES: Addendum by Earl Foote DO on March 12, 2024 10:27:34 EST MEDICAL INFORMATION: Prescriptions Given: Medications to Continue with No Changes Other Medications ethinyl estradiol-levonorgestrel (Balcoltra) By Mouth every day. PATIENT EDUCATION INFORMATION: Instructions: Follow up: DIAGNOSIS: 1:Syncope; 2:Postural orthostatic tachycardia syndrome [POTS]; 3:Orthostatic syncope; 4:Abdominal pain, acute; 5:Hypotension; 6:LeukocytosisNormalFisher Galileo Medical CenterED Note-Physicianon [id number] Note-PhysicianED Note-Physician Basic Information Time Seen: Tuan Lovell DO 03/12/2024 05:48 Chief Complaint abd pain starting this am. pain to abd is around umbilicus. denies nausea or vomiting. states got lightheaded this am History of Present Illness Patient is a 23-year-old female with no past medical history presenting to the ED for evaluation ofabdominal pain. Patient states she had abdominal pain [...] and Complexity of Problems Differential Diagnosis: [] [facility] Data External documents reviewed: [] My [...] declined. She is given IV fluid bolus. Laboratoryevaluation reveals a leukocytosis of 16.3 otherwise is [...] Lymph Auto: 10.6 % Low (03/12/24 06:09:00) Lawrence Auto: 5.7 % (03/12/24 06:09:00) Eos Auto: 0.6 % (03/12/24 06:09:00) Basophil Auto: 0.2 % (03/12/24 06:09:00) Neutro Absolute: 13.5 E9/L High (03/12/24 06:09:00) Lymph Absolute: 1.7 E9/L (03/12/24 06:09:00) Lawrence Absolute: 0.9 E9/L (03/12/24 06:09:00) Eos Absolute: 0.1 E9/L (03/12/24 06:09:00) Basophil Absolute: 0 E9/L (03/12/24 06:09:00) Gl (more content not included)...[facility] SystemComment on above:Result Comment: Electronically Signed By: Earl Foote DO\.june\Date and Time Signed: 03/12/24 10:29ESTED Note-PhysicianED Note-Physician Basic Information Time Seen: Tuan Lvoell DO 03/12/2024 05:48 Chief Complaint abd pain starting this am. pain to abd is around umbilicus. denies nausea or vomiting. states got lightheaded this am History of Present Illness Patient is a 23-year-old female with no past medical history presenting to the ED for evaluation ofabdominal pain. Patient states she had abdominal pain [...] and Complexity of Problems Differential Diagnosis: [] [facility] Data External documents reviewed: [] My [...] declined. She is given IV fluid bolus. Laboratoryevaluation reveals a leukocytosis of 16.3 otherwise is [...] Lymph Auto: 10.6 % Low (03/12/24 06:09:00) Lawrence Auto: 5.7 % (03/12/24 06:09:00) Eos Auto: 0.6 % (03/12/24 06:09:00) Basophil Auto: 0.2 % (03/12/24 06:09:00) Neutro Absolute: 13.5 E9/L High (03/12/24 06:09:00) Lymph Absolute: 1.7 E9/L (03/12/24 06:09:00) Lawrence Absolute: 0.9 E9/L (03/12/24 06:09:00) Eos Absolute: 0.1 E9/L (03/12/24 06:09:00) Basophil Absolute: 0 E9/L (03/12/24 06:09:00) Gl (more content not included)...[facility] SystemComment on above:Result Comment: Electronically Signed By: Tuan Lovell DO\.br\Date and Time Signed: 03/12/24 06:46 ESTED Patient Education Noteon 35-21-2413DC Patient Education NoteED Patient Education NoteNormJ.W. [facility] ED Patient Summaryon [id number] Patient SummaryED Patient Summary [place] [address] Patient Discharge Instructions Person Information Name: JYOTI TORRES Age: 23 Years Arrival Date: 03/12/2024 05:43:15 Discharge Diagnosis: 1:Syncope; 2:Postural orthostatic tachycardia syndrome [POTS]; 3:Orthostatic syncope; 4:Abdominal pain, acute; 5:Hypotension; 6:Leukocytosis Primary Care Physician: Jenna BA DO Provider Information Primary Provider: Tuan Lovell DO Advanced General Operator:None The exam and treatment you received in the Emergency Department were for an urgent problem and are not intended as complete care. It is important that you follow up with a doctor, nurse practitioner,or physician???s clerical dentist assistant for ongoing care. If your symptoms become worse or you do not improve asexpected and you are unable to reach your usual health care provider, you should return to the Emergency Department. We are available 24 hours a day. JYOTI TORRES has been given the following list of patient education materials, prescriptions andfollow-up instructions: Follow-up Instructions: In the event that this physician does not participate in your insurance network, please consult with your insurance company to find a nearby participating provider. Patient Education Materials: A MESSAGE TO ALL PATIENTS REGARDING OPIOIDS PRESCRIPTION OPIOIDS: WHAT YOU NEED TO KNOW Prescription opioids can be used to help relieve dqwjdijv-nv-tttkha pain and are often prescribed following a [...] be struggling with addiction, tell your health multi care technician and askfor guidance or call [facility]???S National He (more content not included)...[facility] Healthcare SystemExtra Blueon 03-04-2263Iqek Collected PlasmaYesInvalid Interpretation [facility] HospitalComment on above:Performed By: #### [id number] #### [facility] [address], [place] [address]YXJGGJELZDUqgmvxn By: SYSTEM SYSTEM on 96-32-3848Vqdpwlmep/100 WBC (Bld)0.2 %Normal0.0 - 2.0 %Remisol HemeBasophils/Leukocytes Auto (Bld) [Pure # fraction]0.0 E9/LNormal0.0 - 0.2 E9/LRemisol HemeEosinophils (Bld) [#/Vol]0.1 E9/LNormal0.0 - 0.5 E9/LRemisol HemeEosinophils/100 WBC (Bld)0.6 %Normal0.0 - 8.0 %Remisol HemeErythrocyte distribution width (RBC) [Ratio]12.5 %Tphzgp08.9 - 14.2 %Remisol HemeHematocrit (Bld) [Volume fraction]40.5 %Wgmpgj92.0 - 46.0 % Remisol HemeHemoglobin (Bld) [Mass/Vol]13.7 g/pVXtkeam20.0 - 16.0 gm/dLRemisol HemeLymphocytes (Bld) [#/Vol]1.7 E9/LNormal1.0 - 4.0 E9/LRemisol Heme Lymphocytes/100 WBC (Bld)10.6 %Low14.0 - 50.0 %Remisol HemeMCH (RBC) [Entitic mass]31.4 ohDlaqpu46.0 - 34.0 pgRemisol HemeMCHC (RBC) [Mass/Vol]33.8 g/dLNormal 31.4 - 36.0 gm/dLRemisol HemeMCV (RBC) [Entitic vol]92.9 oLCmslny50.0 - 100.0 fL Remisol HemeMonocytes (Bld) [#/Vol]0.9 E9/LNormal0.2 - 1.0 E9/LRemisol Heme Monocytes/100 WBC (Bld)5.7 %Normal4.0 - 14.0 %Remisol HemeNeutrophils (Bld) [#/Vol]13.5 E9/LHigh2.0 - 7.5 E9/LRemisol HemeNeutrophils/100 WBC (Bld)82.9 % High36.0 - 75.0 %Remisol AplqXmjfajpe270.0 E9/GUsajdc587.0 - 500.0 E9/LRemisol HemePlatelet mean volume (Bld) [Entitic vol]7.6 fLNormal6.4 - 10.8 fLRemisol HemeRBC (Bld) [#/Vol]4.4 E12/LNormal4.3 - 5.9 E12/LRemisol HemeWBC corrected for nucl RBC Auto (Bld) [#/Vol]16.3 E9/LHigh4.0 - 11.0 E9/LRemisol HemeHep Func Panelon 57-02-5836Qdtvysj [Mass/Vol]4.1 g/dLNormal3.3-5.0[facility] North HospitalComment on above:Performed By: #### [id number] #### [facility] [address] [place] [address]28[address]Uvdgqlh/Globulin (S) [Mass conc ratio]1.2Myeywc8.1-2.2FUpper Valley Medical CenterComment on above:Performed By: #### [id number] #### [facility] [address] [place] [address]66[address]VRX [Catalytic activity/Vol]38 Int._Unit/ABpxtpn84-15KoarinTrihealth Bethesda North HospitalComment on above:Performed By: #### [id number] #### [facility] [address] [place] [address]JCD No additional P-5'-P [Catalytic activity/Vol]14 Int._Unit/L Normal6-46[facility] North HospitalComment on above:Performed By: #### [id number] #### [facility] [address], [place] [address]MEE [Catalytic activity/Vol]16 Int._Unit/LNormal5-43[facility] HospitalComment on above:Performed By: #### [id number] #### [facility] [address] [place] [address]Vbsqesgkv [Mass/Vol]0.7 mg/dLNormal0.0-1.1FUpper Valley Medical CenterComment on above:Performed By: #### [id number] #### [facility] [address], [place] [address]Ttnecmnlk.direct [Mass/Vol]0.1 mg/dLNormal0.0-0.4FUpper Valley Medical CenterComment on above:Performed By: #### [id number] #### [facility] [address], [place] [address]Brnqagdsd.indirect [Mass or moles/Vol]0.6 mg/dLNormal0.1-0.9 [facility] HospitalComment on above:Performed By: #### [id number] #### [facility] [address] [place] [address] 07395Kbakanqy (S) [Mass/Vol]2.8 g/dLNormal1.4-4.0[facility] HospitalComment on above:Performed By: #### [id number] #### [facility] [address] [place] [address] 62653Rqejkhm [Mass/Vol]6.9 g/dLNormal6.0-7.8[facility] HospitalComment on above:Performed By: #### [id number] #### [facility] [address] [place] [address] 35591Jddqzboklyojjqwee Note - Case Manageron 03-12-2024 Interdisciplinary Note - Case ManagerInterdisciplinary Note - Motor Equipment Commanding Officer CRM to room 327 Patient is a new admission Nursing is doing her admit at this time. CRM will see patient on 03/13Normal [facility] HospitalComment on above:Result Comment: Electronically Signed By: Radha Trevino\.june\Date and Time Signed: 03/12/24 13:56 ESTLipase Levelon 81-30-8508Fmxezs [Catalytic activity/Vol]19 U/CHhjuit38-90RemxhsTrihealth Bethesda North HospitalComment on above:Performed By: #### [id number] #### [facility] [address], [place] [address]PBLUCLYIHreeeop By: Leyla Mercer on 70-34-9710WDM.beta subunit (U) [Moles/Vol]NegativeNormalMER[facility] [place] Man SeroTroponin 0 Hr.on 03-12-2024 Troponin HS<2.76Ukr52.10-27.10[facility] HospitalComment on above:Result Comment: The 95% CI (Confidence Interval) PPV (Positive Predictive Value) for myocardial infarction in females is 38 pg/mL, in males 51 pg/mL. The results should be used in conjunction with clinical conditions of myocardial infarction. (Access High Sensitivity Troponin I Instructions For Use, Robin [place], November 2017)Performed By: #### [id number] #### [facility] [address] [place] [address] 39806A BetaHcg Qualon 55-66-9968NZO.beta subunit (U) [Moles/Vol] NegativeNormalTrihealth Bethesda North HospitalComment on above:Performed By: #### [id number] #### [facility] [address] [place] [address] 45167SS with Cult Rflxon 05-96-4672Hsomnsyo Auto Ql (U)TraceNormal TraceTrihealth Bethesda North HospitalComment on above:Performed By: #### [id number] #### [facility] [address] [place] [address] 55939Hppbhdsgu Ql (U)NegativeNormalNegativeTrihealth Bethesda North HospitalComment on above:Performed By: #### [id number] #### [facility] [address] [place] [address] 44232Cqvnedi (U)ClearNormalClearTrihealth Bethesda North HospitalComment on above:Performed By: #### [id number] #### [facility] [address] [place] [address] 50595Hccsr (U)YellowNormalYellowTrihealth Bethesda North HospitalComment on above:Result Comment: Microscopic readings are only performed on those samples that meet specific criteria set forth by [facility].Performed By: #### [id number] #### [facility] [address] [place] [address] 95925Dwxeuxyyrw cells.squamous Auto (Urine sed) [#/Area]3-4Invalid Interpretation CodeTrihealth Bethesda North HospitalComment on above:Performed By: #### [id number] #### [facility] [address], [place] [address]Slkndrh Ql (U)NegativeNormalNegWestern Reserve Hospital Comment on above:Performed By: #### [id number] #### [facility] [address], [place] [address]Nrcdrysdva Auto test strip (U) [Mass/Vol]NegativeNormalNegative [facility] HospitalComment on above:Performed By: #### [id number] #### [facility] [address], [place] [address]Cwhbzqu Auto test strip Ql (U)NegativeNormalNegativeTrihealth Bethesda North HospitalComment on above:Performed By: #### [id number] #### [facility] [address] [place] [address] 07538Dmswiwfvk esterase Auto test strip Ql (U)NegativeNormalNegative [facility] HospitalComment on above:Performed By: #### [id number] #### [facility] [address], [place] [address]Fcblu Auto Ql (U)TraceNormalNegativeTrihealth [facility] Comment on above:Performed By: #### [id number] #### [facility] [address], [place] [address]Yahlzrw Auto test strip Ql (U)NegativeNormalNegativeTrihealth Bethesda North HospitalComment on above:Performed By: #### [id number] #### [facility] [address], [place] [address]aQ (U)8.5 [pH]Invalid Interpretation Code5.0-9.0[facility] HospitalComment on above:Performed By: #### [id number] #### [facility] [address], [place] [address]Arzwjgc Ql (U)1+ mg/dLAbnormalNegWestern Reserve HospitalComment on above:Performed By: #### [id number] #### [facility] [address], [place] [address]NNO Ql (U)4-2Dasfvz9-9EgepnpUpper Valley Medical CenterComment on above:Performed By: #### [id number] #### [facility] [address], [place] [address]Miwvyhlb gravity (U) [Rel density]1.017Invalid Interpretation Code1.005-1.030[facility] HospitalComment on above:Performed By: #### [id number] #### [facility] [address], [place] [address]Upphklqnmkzk (U) [Mass/Vol]NegativeNormalNegativeTrihealth Bethesda North HospitalComment on above:Performed By: #### [id number] #### [facility] [address] [place] [address] 15309VAU Auto (Urine sed) [#/Area]1-9Xupqvm1-1CojucgUpper Valley Medical CenterComment on above:Performed By: #### [id number] #### [facility] [address] [place] [address] 06[address]Tpkr of Urine collection methodClean CatchNormalTrihealth Bethesda North HospitalComment on above:Performed By: #### [id number] #### [facility] [address] [place] [address] 31998NIYKRGLHQAIbelfhf By: SYSTEM SYSTEM on 78-78-2602Fbzyrvru Auto Ql (U)Trace /HPFNormalTrace/HPFMER[facility] H[facility] [place] UA Auto SSBilirubin Ql (U)NegativeNormal Negativemg/dLMERCY HOSPITAL [facility] [place] UA Auto SSClarity (U)Clear (03/12/24 6:09 AM)NormalClearFHILLCREST [facility] [place] Auto SSColor (U)Yellow 1 (03/12/24 6:09 AM)NormalYellowMERCY HOSPITAL [facility] [place] UA Auto SSComment on above:Interpretive Data: Microscopic readings are only performed on those samples that meet specific criteria set forth by [facility].Epithelial cells.squamous Auto (Urine sed) [#/Area]3-4 graded/HPFInvalid Interpretation CodeMERCY HOSPITAL [facility] [place] UA Auto SSGlucose Ql (U)NegativeNormalNegativemg/dLMERCY HOSPITAL [facility] [place] UA Auto SS Hemoglobin Auto test strip (U) [Mass/Vol]NegativeNormalNegativemg/dLMERCY HOSPITAL [facility] [place] UA Auto SSKetones Auto test strip Ql (U)NegativeNormalNegativemg/dLFT UA Auto SS Leukocyte esterase Auto test strip Ql (U)NegativeNormalNegativeLeu/uLMERCY HOSPITAL [facility] [place] UA Auto SSMucus Auto Ql (U)Trace graded/LPFNormalNegativegraded/LPFFTMC UA Auto SS Nitrite Auto test strip Ql (U)NegativeNormalNegativemg/dLMERCY HOS[facility] [place] UA Auto SSpH (U) 8.5 *NA* (03/12/24 6:09 AM)Invalid Interpretation Code5.0 - 9.0[facility] Auto SSProtein Ql (U)1+ mg/dLInvalid Interpretation CodeNegativemg/dLMERCY HOSPITAL [facility] [place] UA Auto SSRBC Ql (U)0-3 graded/HPFNormal0-3graded/HPFMERCY HOSPITAL [facility] [place] UA Auto SSSpecific gravity (U) [Rel density] 1.017 *NA* (03/12/24 6:09 AM)Invalid Interpretation Code1.005 - 1.030[facility] Auto SS Urobilinogen (U) [Mass/Vol]NegativeNormalNegativemg/dLMERCY HOSPITAL [facility] [place] UA Auto SSWBC Auto (Urine sed) [#/Area]0-5 graded/HPFNormal0-5graded/HPFMERCY HOSPITAL [facility] [place] UA Auto SSURINALYSIS Ordered By: Tuan Lovell on 48-87-5716AG Spec DescClean Catch (03/12/24 6:09 AM)NormalMERCY HOSPITAL [facility] [place] UA Auto SS us Pelvis Non-OB Completeon 54-78-3056FY Pelvis Non-OB CompleteExam Date/Time: 03/12/2024 08:08 EST Reason for Exam: [...] JEREMIAH Technologist: CHELY Technical Comments Transabdominal Ultrasound PerformedNormJ.W. Ruby Memorial HospitaleGFRon 24-51-4276mKXD584 mL/min/1.73 a3Oaewgw>=59[facility] HospitalComment on above:Performed By: #### [id number] #### [facility] [address], [place] [address]ITB ACOG PANEL 2: 21 to 29on 06-03-2022..[address] Rita'S HospitalComment on above:Performed By: #### [id number] #### [facility] [address] [address] [address] Vernon Franco Gdln ACOG Zeowudh41-55JupdrjTszOhioHealth Hardin Memorial HospitalComment on above:Performed By: #### [id number] #### [facility] [address] [place] [address] Dr. Vernon MerinoDIAGNOSIS:CommentKettering Health Preble on above: Result Comment: NEGATIVE FOR INTRAEPITHELIAL LESION OR MALIGNANCY.Performed By: #### [id number] #### [facility] [address] [place] [address] Dr. Vernon MerinoMethodology:CommentKettering Health Preble on above: Result Comment: This liquid based ThinPrep(R) pap test was screened with the use of an image guided system.Performed By: #### [id number] #### [place] [address] Dr. Vernon MerinoNote:CommentKettering Health Preble on above:Result Comment: The Pap smear is a screening test designed to aid in the detection of premalignant and malignant conditions of the uterine cervix. It is not a diagnostic procedure and should not be used as the sole means of detecting cervical cancer. Both false-positive and false-negative reports do occur. .Performed By: #### [id number] #### [place] [address] Dr. Vernon MerinoPerformed by:CommentKettering Health Preble on above: Result Comment: Marciano Swann Customs And Border Protection Inspector (ASCP)Performed By: #### [id number] #### [place] [address] Dr. Vernon MerinoReflex Criteria:[facility] on above:Result Comment: The HPV DNA reflex criteria were not met with this specimen result therefore, no HPV testing was performed. .Performed By: #### [id number] #### [facility] [address] [place] [address] Dr. Vernon MerinoSpecimen adequacy:CommentKettering Health Preble on above:Result Comment: Satisfactory for evaluation. Endocervical and/or squamous metaplastic cells (endocervical component) are present.Performed By: #### [id number] #### [facility] [address] [place] [address] Dr. Vernon Lee SERUMon 88-23-0124Gixyhwzxmpktifyctvjqwn (DHEA)633 ng/dL Kktbvf42-692QouOhiohealth Southeastern Medical CenterComment on above:Result Comment: Age 1 - 5 years 0 - 67 6 - 7 years 0 - 110 8 - 10 years 0 - 185 11 - 12 years 0 - 201 13 - 14 years 0 - 318 15 - 16 years 39 - 481 17 - 19 years 40 - 491 >19 years 31 - 701Performed By: #### DHEA. #### [facility] [address] [place] [address] Dr. Vernon Lee-SULFATEon 30-04-9195BTEM-Loexltf074.0 ug/cQLerkom641.0-431.[address] [facility]'S HospitalComment on above:Performed By: #### DHEASUL #### [facility] [address] [place] [address] Dr. Vernon MerinoFSHodeanna 70-95-2206DUU7.7 mIU/mLNormalOhiohealth Southeastern Medical CenterComment on above:Result Comment: Adult Female: Follicular phase 3.5 - 12.5 Ovulation phase 4.7 - 21.5 Luteal phase 1.7 - 7.7 Postmenopausal 25.8 - 134.8Performed By: #### LBCFSH #### [facility] [address] [place] [address] Dr. Vernon MerinoLUTEINIZING HORMONE (LH)on 44-30-9491AO60.3 mIU/mLNormalOhiohealth Southeastern Medical CenterComment on above:Result Comment: Adult Female: Follicular phase 2.4 - 12.6 Ovulation phase 14.0 - 95.6 Luteal phase 1.0 - 11.4 Postmenopausal 7.7 - 58.5Performed By: #### LBCLH #### [facility] [address] [place] [address] Dr. Vernon MerinoPROLACTINon 46-45-2232Hiivcgooj05.8 ng/mLNormal4.8-23.3The St[facility] Rita'S HospitalComment on above:Performed By: #### PROLAC #### [facility] [address] [place] [address] Dr. Vernon MerinoCBC AUTO DIFFon 95-27-7894VNXI #0.1 103/ulNormal0.0-0.1The [facility] Rita'S HospitalComment on above:Performed By: #### CBC ####[facility] Rawxrzbw[address] [place], [place] [address]Dr.Demetriayo ChangBasophils/100 WBC (Bld)1.1 %Normal0.2-2.0The [facility] Rita'S HospitalComment on above:Performed By: #### CBC ####[facility] Pu[address] [place], [place] [address]Dr.Vernon ChangEO #0.1 103/ulNormal0.0-0.7The [facility] Rita'S HospitalComment on above:Performed By: #### CBC ####[facility] Vidmtxmfze[address] [place], [place] [address]Dr.Demetriayo ChangEosinophils/100 WBC (Bld)1.6 %Normal 0.9-7.0The [facility] Rita'S HospitalComment on above:Performed By: #### CBC ####[facility] Qkusxhkpiz[address] [place], [place] [address]Dr.Demetriayo Merino Erythrocyte distribution width (RBC) [Ratio]12.1 %Ndpnfl98.0-15.0The [facility]'S HospitalComhenry ford hospital on above:Performed By: #### CBC ####[facility] Yxxjyhxjjr[address] [place], [place] [address]Dr.Demetriayo WilberHematocrit (Bld) [Volume fraction]44.5 %Oqfncu62.0-48.0The [facility]'S HospitalComment on above:Performed By: #### CBC ####[facility] Fnvnsbntoh[address] [place], [place] [address]Dr.Demetriayo ChangHemoglobin (Bld) [Mass/Vol]14.3 g/dL Jjlxtg61.0-16.0The [facility]'S HospitalComment on above:Performed By: #### CBC ####[facility] Aroehjzwob[address] [place], [place] [address]Dr. Vernon ChangIG #0.01 10e3/ulNormal0.00-0.03The [facility]'S HospitalComment on above: Performed By: #### CBC ####[facility] [address] [address]Dr.Vernon ChangIG %0.2 %Normal0.0-0.5The [facility] Rita'S HospitalComment on above:Performed By: #### CBC ####[facility] [address] [address]Dr.Vernon MerinoLYMPH #1.8 103/ulNormal1.2-3.8The [facility]'S HospitalComment on above:Performed By: #### CBC ####[facility] Khjkgzy[address] [place], [place] [address]Dr. Vernon MerinoLymphocytes/100 WBC (Bld)29.5 %Bzpmzd03.5-60.0[facility] Comment on above:Performed By: #### CBC ####[facility] Zlanstvtwy[address] [place], [place] [address]Dr.Demetrialan WilberMANUAL DIFF REQNONormalThe St. Rita'S HospitalComment on above:Performed By: #### CBC ####[facility] Duygiibxjy[address] [place], [place] [address]Dr.Vernon MerinoH (RBC) [Entitic mass]30.6 wnUkrjoo17.7-34.0The [facility]'S HospitalComment on above: Performed By: #### CBC ####[facility] Zxkxgvsgdd[address] [place], [place] [address]Dr.Vernon MerinoMCHC (RBC) [Mass/Vol]32.1 g/dLNormal 29.9-35.2The [facility]'S HospitalComment on above:Performed By: #### CBC ####[facility] Avninhimhx[address] [place], [place] [address]Dr. Vernon MerinoMCV (RBC) [Entitic vol]95.[address] qNUoklzz87.0-99.0The [facility] Comment on above:Performed By: #### CBC ####[facility] Eirvgnzngp[address] [place], [place] [address]Dr.Vernon WilberMONO #0.5 103/ulNormal0.3-0.[address] [facility]'S HospitalComment on above:Performed By: #### CBC ####[facility] [address] [address]Dr.Vernon Merino Monocytes/100 WBC (Bld)8.7 %Normal1.7-12.0The [facility]'S HospitalComment on above: Performed By: #### CBC ####[facility] Vpemfoqxng[address] [place], [place] [address]Dr.Vernon MerinoNEUT #3.6 103/ulNormal1.4-6.5The [facility]'S HospitalComment on above:Performed By: #### CBC ####[facility] [address]qhpfhjim[address] [place], [place] [address]Dr.Vernon MerinoNeutrophils/100 WBC (Bld)58.9 %Orhlpa89.0-75.0The [facility]'S HospitalComment on above:Performed By: #### CBC ####[facility] Jrlwanjxwu[address] [place], [place] [address]Dr.Vernon MerinoPlatelet mean volume (Bld) [Entitic vol]9.9 fLNormal9.5-13.[address] [facility]S HospitalComhenry ford hospital on above:Performed By: #### CBC ####[facility] Dmxuavgmpz[address] [place], [place] [address]Dr.Vernon LfwrrHLT296 103/rtBmnlet385-021Fnq St. [facility]'S HospitalComment on above:Performed By: #### CBC ####[facility] Iejmgmwhvh[address] [place], [place] [address]Dr. Vernon ChangRBC4.67 106/ulNormal4.20-5.40The [facility]'S HospitalComment on above: Performed By: #### CBC ####[facility] Uvujfkhdpx[address] [place], [place] [address]Dr.Vernon ChangWBC6.1 103/ulNormal4.0-11.0The [facility]S HospitalComhenry ford hospital on above:Performed By: #### CBC ####[facility] Hyrkxhmeuw[address] [place], [place] [address]Dr.Vernon MerinoFREE T4on 34-42-2748Evfu T4 [Mass/Vol]1.10 ng/dLNormal0.76-1.46[facility] Comment on above:Performed By: #### FT4 #### [facility] [address] [place] [address] Dr. Vernon MerinoGLYCOHEMOGLOBIN A1Con 76-15-6734NXF RECOMMENDATIONSEE BELOWNormal The St. Rita'S HospitalComment on above:Result Comment: ADA RECOMMENDED LIMIT 4.0 - 6.0 ADA THERAPEUTIC TARGET < 7.0 ACTION SUGGESTED > 7.0Performed By: #### A1C #### [facility] [address] [place] [address] Dr. Vernon MerinoGlucose [Mass/Vol]105 mg/dLNormalThe St. Rita'S HospitalComment on above:Performed By: #### A1C #### [facility] [address] [place] [address] Dr. Vernon MerinoHbA1c (Bld) [Mass fraction]5.3 %Normal4.5-6.2The [facility]'S HospitalComment on above:Performed By: #### A1C #### [facility] [address] [place] [address] Dr. Vernon MerinoTSHon 65-31-0298ELW8.981 uIU/mLNormal0.358-3.740The St[facility]'S HospitalComment on above:Performed By: #### TSH #### [facility] [address] [place] [address] Dr. Vernon MerinoUS PELVIS AND TRANSVAGon 14-92-5598RU PELVIS AND TRANSVAG EXAMINATION: US PELVIS AND [...] Electronically authenticated by: ANTHONY AQUINO Date: 2022-05-12 11:17[facility] SystemBody fluid albumin measurement (mass/volume)Ordered By: [employer] on 30-38-0288Dfoxpuh (Body fld) [Mass/Vol]4.0 g/dL3.2-5.5 [facility] CincinnatiCB Without Differentialon 03-13-2022 Erythrocyte distribution width (RBC) [Ratio]12.9 %Gdukkd66.9-15.3FCommunity Memorial HospitalComment on above:Performed By: #### OUTREACH CMP, OUTREACH LIPID, OUTREACH TSH, CBCNOOUTREACH #### [facility] [address] [place] [address] USAHematocrit (Bld) [Volume fraction]42.3 %Fscwld09.0-46.4 [facility] - CincinnatiComment on above:Performed By: #### OUTREACH CMP, OUTREACH LIPID, OUTREACH TSH, CBCNOOUTREACH #### [facility] [address] [address] USAHemoglobin (Bld) [Mass/Vol]14.1 g/lHXqrkbo92.8-15.4 [facility] CincinnatiComment on above:Performed By: #### OUTREACH CMP, OUTREACH LIPID, OUTREACH TSH, CBCNOOUTREACH #### [facility] [address] [place] [address] [facility]ONH (RBC) [Entitic mass]30.6 adUbcixy62.7-34.3FCommunity Memorial HospitalComment on above:Performed By: #### OUTREACH CMP, OUTREACH LIPID, OUTREACH TSH, CBCNOOUTREACH #### [facility] [address] [place] [address] [facility] YUKONV (RBC) [Entitic vol]92.0 rWIvruol87-474Gbmhthkvf Regional Medical CenterComment on above:Performed By: #### OUTREACH CMP, OUTREACH LIPID, OUTREACH TSH, CBCNOOUTREACH #### [facility] [address] [place] [address] USAMean Corpuscular HGB Conc33.2 g/tACtbqrz40.0-35.0[facility] - CincinnatiComment on above:Performed By: #### OUTREACH CMP, OUTREACH LIPID, OUTREACH TSH, CBCNOOUTREACH #### [facility] [address] [place] [address] USAPlatelet mean volume (Bld) [Entitic vol]8.6 fLNormal 6.3-10.7FCommunity Memorial HospitalComment on above:Result Comment: PERFORMED BY: [place] [address] PATHOLOGIST [employer] YEN ESCOBAR M.D.Performed By: #### OUTREACH CMP, OUTREACH LIPID, OUTREACH TSH, CBCNOOUTREACH #### [place] [address] USAPlatelets (Bld) [#/Vol]283 10*3/lEFcddcz531-686KpkkfwvvsSelect Medical Specialty Hospital - CincinnatiComment on above:Performed By: #### OUTREACH CMP, OUTREACH LIPID, OUTREACH TSH, CBCNOOUTREACH #### [facility] [address] [place] [address] USARBC (Bld) [#/Vol]4.60 10*6/uLNormal3.60-5.00[facility] - CincinnatiComment on above:Performed By: #### OUTREACH CMP, OUTREACH LIPID, OUTREACH TSH, CBCNOOUTREACH #### [facility] [address] [place] [address] USAWBC (Bld) [#/Vol]6.6 10*3/uLNormal3.8-11.6FCommunity Memorial HospitalComment on above:Performed By: #### OUTREACH CMP, OUTREACH LIPID, OUTREACH TSH, CBCNOOUTREACH #### [facility] [address] [place] [address] USACMP Outreachon 87-86-7706Aoicfyx [Mass/Vol]4.0 g/dLNormal 3.2-5.5FCommunity Memorial HospitalComment on above:Performed By: #### OUTREACH CMP, OUTREACH LIPID, OUTREACH TSH, CBCNOOUTREACH #### [facility] [address] [place] [address] USAALP [Catalytic activity/Vol]42 U/LMnqaip46-12VtjydadoaSelect Medical Specialty Hospital - CincinnatiComment on above:Performed By: #### OUTREACH CMP, OUTREACH LIPID, OUTREACH TSH, CBCNOOUTREACH #### [facility] [address] [place] [address] USAALT [Catalytic activity/Vol]21 U/TIbtaob31-64RaqvhdudpSelect Medical Specialty Hospital - CincinnatiComment on above:Performed By: #### OUTREACH CMP, OUTREACH LIPID, OUTREACH TSH, CBCNOOUTREACH #### [facility] [address] [place] [address] USAAnion gap [Moles/Vol]9.3 mmol/LNormal6.0-15.0[facility] - CincinnatiComment on above:Performed By: #### OUTREACH CMP, OUTREACH LIPID, OUTREACH TSH, CBCNOOUTREACH #### [facility] [address] [place], [place] [address] USAAST [Catalytic activity/Vol]22 U/JZjrzzl31-73PywcoljgaSelect Medical Specialty Hospital - CincinnatiComment on above:Performed By: #### OUTREACH CMP, OUTREACH LIPID, OUTREACH TSH, CBCNOOUTREACH #### [facility] [address] [place] [address] USABilirubin [Mass/Vol]0.6 mg/dLNormal0.3-1.2FCommunity Memorial HospitalComment on above:Performed By: #### OUTREACH CMP, OUTREACH LIPID, OUTREACH TSH, CBCNOOUTREACH #### [facility] [address] [place] [address] USACalcium [Mass/Vol]9.2 mg/dLNormal8.2-10.2FCommunity Memorial HospitalComment on above:Performed By: #### OUTREACH CMP, OUTREACH LIPID, OUTREACH TSH, CBCNOOUTREACH #### [facility] [address] [place] [address] USAChloride [Moles/Vol]103 mmol/YFpbxnf61-453BuegtmdaaSelect Medical Specialty Hospital - CincinnatiComment on above:Performed By: #### OUTREACH CMP, OUTREACH LIPID, OUTREACH TSH, CBCNOOUTREACH #### [facility] [address] [id number] USACO2 [Moles/Vol]27.8 mmol/TUfitrl37.0-30.0[facility] - CincinnatiComment on above:Performed By: #### OUTREACH CMP, OUTREACH LIPID, OUTREACH TSH, CBCNOOUTREACH #### [facility] [address] [address] USACreatinine [Mass/Vol]0.62 mg/dLNormal0.44-1.03[facility] - CincinnatiComment on above:Performed By: #### OUTREACH CMP, OUTREACH LIPID, OUTREACH TSH, CBCNOOUTREACH #### [facility] [address] [id number] USAEstimated GFR ( Sara> 60NormPeoples HospitalComment on above:Result Comment: GFR estimated reference range: According to KDOQI guidelines, <60 ml/min/1.73m2 is sufficient to diagnose a patient with chronic kidney disease.Performed By: #### OUTREACH CMP, OUTREACH LIPID, OUTREACH TSH, CBCNOOUTREACH #### [place] [id number] USAEstimated GFR (Non- Am> 60NormPeoples HospitalComment on above:Performed By: #### OUTREACH CMP, OUTREACH LIPID, OUTREACH TSH, CBCNOOUTREACH #### [facility] [address] [id number] USAGlucose [Mass/Vol]91 mg/iPRxyyuw17-076PelnvdpujSelect Medical Specialty Hospital - CincinnatiComment on above:Result Comment: Random Glucose Reference Range is dependent on time and content of last meal. Glucose of more than 200 mg/dL in a nonstressed, ambulatory subject supports the diagnosis of Diabetes Mellitus. ADA recommended reference rangePerformed By: #### OUTREACH CMP, OUTREACH LIPID, OUTREACH TSH, CBCNOOUTREACH #### [facility] [address] [place] [address] USAPotassium [Moles/Vol]4.1 mmol/LNormal3.5-5.1FCommunity Memorial HospitalComment on above:Performed By: #### OUTREACH CMP, OUTREACH LIPID, OUTREACH TSH, CBCNOOUTREACH #### [facility] [address] [place] [address] USAProtein [Mass/Vol]6.8 g/dLNormal6.1-7.9[facility] - CincinnatiComment on above:Performed By: #### OUTREACH CMP, OUTREACH LIPID, OUTREACH TSH, CBCNOOUTREACH #### [facility] [address] [place] [address] USASodium [Moles/Vol]136 mmol/WBfwbmd004-081YsljxbinsSelect Medical Specialty Hospital - CincinnatiComment on above:Performed By: #### OUTREACH CMP, OUTREACH LIPID, OUTREACH TSH, CBCNOOUTREACH #### [facility] [address] [place] [address] USAUrea nitrogen [Mass/Vol]9 mg/dLNormal9-23Select [facility] Hospital - CincinnatiComment on above:Performed By: #### OUTREACH CMP, OUTREACH LIPID, OUTREACH TSH, CBCNOOUTREACH #### [facility] [address] [place] [address] USACholesterol [Mass/volume] in Serum or PlasmaOrdered By: OUTREACH COMMUNITY on 37-60-0973Yhqxhceasot [Mass/Vol]180 mg/mR290-259EetwyupgsSelect Medical Specialty Hospital - CincinnatiComment on above:Chol less than 200 mg/dl low riskChol 201-239 mg/dl borderline riskChol 240 mg/dl and greater high riskCholesterol in LDL Calc [Mass/Vol]Ordered By: OUTREACH COMMUNITY on 78-19-1449Vkjnyextfzy in LDL [Mass/Vol]113 mg/dL0-100Select [facility]ty Hospital - CincinnatiComment on above: LDL ATP III CLASSIFICATIONLDL less than 100 mg/dL OptimalLDL 100-129 mg/dL Near or above mleoqxwMZI313-979 mg/dL Borderline highLDL 160-189 mg/dL HighLDL greater than 189 mg/dL Very highCholesterol in VLDL Calc [Mass/Vol]Ordered By: OUTREACH COMMUNITY on 54-33-7168Jlseusfyfzh in VLDL [Mass/Vol]11 mg/dLSelect Medical Specialty Hospital - CincinnatiCreatinine and Glomerular filtration rate.predicted panel (S/P/Bld)Ordered By: [facility] on 43-72-2961Xekdwoeslj [Mass/Vol]0.62 mg/dL0.44-1.03Select [facility] Specialty Hospital - CincinnatiErythrocyte distribution width Auto (RBC) [Ratio]Ordered By: [facility] on 40-25-0854Tyteailfndy distribution width (RBC) [Ratio]12.9 %11.9-15.3FCommunity Memorial Hospital Estimated glomerular filtration rate (GFR) non- AmericanOrdered By: [facility] on 58-23-0668MEE/1.73 sq M.predicted among non-blacks MDRD (S/P/Bld) [Vol rate/Area]> 60 mL/MinSelect Medical Specialty Hospital - CincinnatiHematocrit Auto (Bld) [Volume fraction]Ordered By: [facility] on 03-13-2022 Hematocrit (Bld) [Volume fraction]42.3 %34.0-46.4FCommunity Memorial HospitalHemoglobin [Mass/volume] in BloodOrdered By: [facility] on 67-25-7724Vsopuwgbot (Bld) [Mass/Vol]14.1 g/dL11.8-15.4FCommunity Memorial HospitalLeukocytes [#/volume] corrected for nucleated erythrocytes in Blood by Automated counOrdered By: [facility] on 79-39-0876OOC corrected for nucl RBC Auto (Bld) [#/Vol]6.6 10*3/uL3.8-11.6FCommunity Memorial HospitalLipid Profile Outreachon 38-81-2730Ldfpvprzrpc [Mass/Vol]180 mg/dLNormal 140-200Select [facility]ty Hospital - CincinnatiComment on above:Result Comment: Chol less than 200 mg/dl low risk Chol 201-239 mg/dl borderline risk Chol 240 mg/dl and greater high riskPerformed By: #### OUTREACH CMP, OUTREACH LIPID, OUTREACH TSH, CBCNOOUTREACH #### [address] [address] USACholesterol in HDL [Mass/Vol]56 mg/fCJaxcey55-49ThudhygiqSelect Medical Specialty Hospital - CincinnatiComment on above:Result Comment: HDL CHOL ATP-III CLASSIFICATION Cardiovascular Risk HDL > or equal to 60 mg/dL LOW HDL < 40 mg/dL HIGHPerformed By: #### OUTREACH CMP, OUTREACH LIPID, OUTREACH TSH, CBCNOOUTREACH #### [facility] [address] [place] [address] USACholesterol.total/Cholesterol in HDL [Mass ratio]3.2 {ratio}Normal<5.0Select [facility] Hospital - CincinnatiComment on above:Performed By: #### OUTREACH CMP, OUTREACH LIPID, OUTREACH TSH, CBCNOOUTREACH #### [facility] [address] [place] [address] USALDL Cholesterol,Bxkieacxtn281 mg/dLHigh0-100[facility] Hospital - CincinnatiComment on above:Result Comment: LDL ATP III CLASSIFICATION LDL less than 100 mg/dL Optimal LDL 100-129 mg/dL Near or above optimal LDL 130-159 mg/dL Borderline high LDL 160-189 mg/dL High LDL greater than 189 mg/dL Very highPerformed By: #### OUTREACH CMP, OUTREACH LIPID, OUTREACH TSH, CBCNOOUTREACH #### [facility] [address] [place] [address] USATriglyceride w/Tepbgh70 mg/wKGyibgk71-680FhcbmfcmfSelect Medical Specialty Hospital - CincinnatiComment on above:Result Comment: TRIG ATP III CLASSIFICATION TRIG less than 150 mg/dL Normal TRIG 150-199 mg/dL Borderline high TRIG 200-500 mg/dL High TRIG greater than 500 mg/dL Very high Standard traceable to the Center for Disease Conrtrol and Prevention (CDC) test method.Performed By: #### OUTREACH CMP, OUTREACH LIPID, OUTREACH TSH, CBCNOOUTREACH #### [facility] [address] [place] [address] USAVLDL QUCMPGGHPEZ57 mg/dLNormPeoples HospitalComment on above:Performed By: #### OUTREACH CMP, OUTREACH LIPID, OUTREACH TSH, CBCNOOUTREACH #### [facility] [address] [place] [address] [facility] Auto (RBC) [Entitic mass]Ordered By: OUTREACH COMMUNITY on 91-32-9891TKR (RBC) [Entitic mass]30.6 pg24.7-34.3Firelands Regional Medical CenterMCHC Auto (RBC) [Mass/Vol]Ordered By: OUTREACH COMMUNITY on 08-94-4405HNHS (RBC) [Mass/Vol]33.2 g/dL32.0-35.0[facility] Hospital - CincinnatiMCV Auto (RBC) [Entitic vol]Ordered By: OUTREACH COMMUNITY on 03-13-2022 MCV (RBC) [Entitic vol]92.0 xZ76-014QnaipzfgvSelect Medical Specialty Hospital - CincinnatiNo Panel InformationOrdered By: OUTREACH COMMUNITY on 55-56-0476Zowvugbhe GFR ()> 60 mL/MinSelect Medical Specialty Hospital - CincinnatiComment on above:GFR estimated reference range: According to KDOQI guidelines, <60 ml/min/1.73m2 is sufficient todiagnose a patient with chronic kidney disease.Pharmacy Creatinine Clearance (ChemN/[facility]ville HospitalTriglycerides Aclfke59 mg/dL 35-149Select Medical Specialty Hospital - CincinnatiComment on above:TRIG ATP III CLASSIFICATIONTRIG less than 150 mg/dL NormalTRIG 150-199 mg/dL Borderline highTRIG 200-500 mg/dL High TRIG greater than 500 mg/dL Very highStandard traceable to the Center for Disease Conrtrol and Prevention (CDC) test method. Platelet mean volume Auto (Bld) [Entitic vol]Ordered By: OUTREACH COMMUNITY on 14-71-6233Bqeaapqm mean volume (Bld) [Entitic vol]8.6 fL6.3-10.7FCommunity Memorial HospitalPlatelets Auto (Bld) [#/Vol]Ordered By: OUTREACH COMMUNITY on 70-56-5507Xjwwecyxi (Bld) [#/Vol]283 10*3/oP156-212JkheypoikSelect Medical Specialty Hospital - CincinnatiProtein [Mass/volume] in Serum or PlasmaOrdered By: OUTREACH COMMUNITY on 81-00-8736Zwfvpvc [Mass/Vol]6.8 g/dL6.1-7.9Select [facility] Specialty Hospital - CincinnatiRBC Auto (Bld) [#/Vol]Ordered By: OUTREACH COMMUNITY on 86-74-5331CFR (Bld) [#/Vol]4.60 10*6/uL3.60-5.00[facility] Crille Hospitalerum or plasma alanine aminotransferase measurement without P-5'-P (enzymatic activiOrdered By: OUTREACH COMMUNITY on 59-66-4216KIN No additional P-5'-P [Catalytic activity/Vol]21 U/A20-40QwsxurbhsBrecksville VA / Crille Hospitalerum or plasma alkaline phosphatase measurement (enzymatic activity/volume)Ordered By: OUTREACH [facility] on 34-56-8663MVB [Catalytic activity/Vol]42 U/L32-92 [facility] Crille Hospitalerum or plasma anion gap determinationOrdered By: OUTREACH [facility] on 70-73-2908Ynill gap [Moles/Vol]9.3 mmol/L6.0-15.0 [facility] Crille Hospitalerum or plasma aspartate aminotransferase measurement (enzymatic activity/volume)Ordered By: [facility] on 31-96-5851ENJ [Catalytic activity/Vol]22 U/N85-30NbnlhswjaBrecksville VA / Crille Hospitalerum or plasma calcium measurement (mass/volume)Ordered By: [facility] on 66-85-1223Fpxkuaj [Mass/Vol]9.2 mg/dL8.2-10.2FOhioHealth Grant Medical Centererum or plasma chloride measurement (moles/volume)Ordered By: [facility] on 05-21-4354Ssmjageu [Moles/Vol]103 mmol/J90-271PdzaohiagBrecksville VA / Crille Hospitalerum or plasma glucose measurement (mass/volume)Ordered By: [facility] on 53-72-5475Chqgnpi [Mass/Vol]91 mg/gC40-277IjchahgvsSelect Medical Specialty Hospital - CincinnatiComment on above:ADA recommended reference rangeRandom Glucose Reference Range is dependent on time and content of last meal. Glucose of more than 200 mg/dL in a nonstressed, ambulatory subject supports the diagnosisof Diabetes Mellitus.Serum or plasma high density lipoprotein (HDL) cholesterol measurementOrdered By: OUTREACH [facility] on 88-20-5910Zzxkncyekhh in HDL [Mass/Vol]56 mg/aW33-22AhpchbcdoSelect Medical Specialty Hospital - CincinnatiComment on above: HDL CHOL ATP-III CLASSIFICATION Cardiovascular RiskHDL > or equal to 60 mg/dL LOWHDL < 40 mg/dL HIGHSerum or plasma potassium measurement (moles/volume) Ordered By: OUTREACH [facility] on 75-59-6223Pmzmhrnoa [Moles/Vol]4.1 mmol/L 3.5-5.1FOhioHealth Grant Medical Centererum or plasma sodium measurement (moles/volume)Ordered By: OUTREACH COMMUNITY on 25-06-4248Verynw [Moles/Vol]136 mmol/O546-530EuqmbockpBrecksville VA / Crille Hospitalerum or plasma total bilirubin measurement (mass/volume)Ordered By: OUTREACH COMMUNITY on 85-10-2840Sfiuxnzyj [Mass/Vol]0.6 mg/dL0.3-1.2FOhioHealth Grant Medical Centererum or plasma total carbon dioxide measurement (moles/volume)Ordered By: OUTREACH [facility] on 82-00-3749XD9 [Moles/Vol]27.8 mmol/L22.0-30.0[facility] Serum or plasma total cholesterol/high density lipoprotein (HDL) cholesterol mass ratOrdered By: OUTREACH [facility] on 03-13-2022 Cholesterol.total/Cholesterol in HDL [Mass ratio]3.2 {ratio}<5.0[facility] Hospitalerum or plasma urea nitrogen measurement (mass/volume) Ordered By: OUTREACH COMMUNITY on 91-34-1115Vivc nitrogen [Mass/Vol]9 mg/dL9-23 [facility] Hospital - CincinnatiTS DL <= 0.005 mIU/L QnOrdered By: OUTREACH COMMUNITY on 35-03-6912XLP Qn3.87 m[IU]/L0.45-5.33[facility] Hospital - CincinnatiThyroid Stimulating Hormoneon 80-51-7404XKI Qn3.87 m[IU]/LNormal0.45-5.33 [facility] Hospital - CincinnatiComment on above:Result Comment: PERFORMED BY: [place] [address] PATHOLOGIST [employer] YEN ESCOBAR M.D.Performed By: #### OUTREACH CMP, OUTREACH LIPID, OUTREACH TSH, CBCNOOUTREACH #### [address] Vital Signs Date TimeVital SignValuePerforming NsgivqlmjEliorjtj55-27-8376 09:38-0400Body mass index (BMI) [Ratio]32.79 kg/m2Sunshine THAO Work Phone: [facility] HospitalLwbnnkjhnq13-72-1614 09:38-0400Body igvuav26.64 kgSunshine THAO Work Phone: [facility] HospitalHoohhkhgiq40-83-8142 09:38-0400Diastolic blood bogkcedn92 mm[Hg]Sunshine Ding PA Work Phone: 1(068)005-[address] [place], [place] [address]Wadjtdepse80-30-4551 09:38-0400Systolic blood iihzydbc356 mm[Hg]Sunshine Ding PA Work Phone: [phone])221-[address] [place], [place] [address]Pldjhowcjz05-55-0691 10:35-0400Body mass index (BMI) [Ratio]32.17 kg/s1Kcfrnryn Emeli METEOROLOGY INSTRUCTOR Work Phone: [phone])961-[address] [place], [place] [address]Uhaxhbpjsx67-05-5551 10:35-0400Body xahwii97 kg Walter Emeli METEOROLOGY INSTRUCTOR Work Phone: [phone] [place], [place] [address]Qpdmodbiio28-80-0333 10:35-0400Diastolic blood sztpgpen16 mm[Hg]Walter Emeli METEOROLOGY INSTRUCTOR Work Phone: 1([phone])158-[address] [place], [place] [address]Jhbjflndhg63-68-9959 10:35-0400Systolic blood eysdoktt631 mm[Hg]Walter Emeli METEOROLOGY INSTRUCTOR Work Phone: [phone])[facility] [place], [place] [address]Vfihdsdtol52-76-4275 09:08-0400Body mass index (BMI) [Ratio]31.07 kg/o9Nqvhpzep Emeli METEOROLOGY INSTRUCTOR Work Phone: [phone])[facility] [place], [place] [address]Gfryqipiqu30-32-1429 09:08-0400Body ghgaul05.1 kg Walter Emeli METEOROLOGY INSTRUCTOR Work Phone: [phone])[facility] [place], [place] [address]Lieuxnlmad60-15-7416 09:08-0400Diastolic blood akgwqtyn09 mm[Hg]Walter Emeli METEOROLOGY INSTRUCTOR Work Phone: [phone])[facility] [place], [place] [address]Ibhvnsahcg40-85-3964 09:08-0400Systolic blood ibxqemsi298 mm[Hg]Walter Emeli METEOROLOGY INSTRUCTOR Work Phone: 1(332)[facility] [place], [place] [address]Orzuqjaume10-41-3272 11:54-0400Body mass index (BMI) [Ratio]29.7 kg/m2Sunshine Ding PA Work Phone: 1(370)735-[address] [place], [place] [address]Bgpgmdorqb99-10-6353 11:54-0400Body orbtwe89.47 kgSunshine THAO Work Phone: [phone])[facility] [place], [place] [address]Wmgdmtgtle58-47-1457 11:54-0400Diastolic blood begmvfwn47 mm[Hg]Sunshine THAO Work Phone: [facility] HospitalUlugdlcwxp16-95-6287 11:54-0400Systolic blood oqekxqjs588 mm[Hg]Sunshine THAO Work Phone: [facility] HospitalWpuxddbyxe99-59-3724 09:32-0400Body mass index (BMI) [Ratio]29.35 kg/p0Hxhwe Lalitha DO Work Phone: [facility] HospitalQauqoiriii35-78-8289 09:32-0400Body oxmrwz37.56 kgCorey Lalitha DO Work Phone: [facility] HospitalGqllzlkxij46-85-9333 09:32-0400Diastolic blood ellprvvp85 mm[Hg]Morro Lalitha DO Work Phone: [facility] HospitalGuxwqqioin94-30-8027 09:32-0400Systolic blood icduvyhv600 mm[Hg]Morrorajinder Doty DO Work Phone: [facility] HospitalZdwuxuldpx18-18-6195 11:05-0400Body mass index (BMI) [Ratio]29.18 kg/m2[facility]06-06-2025 11:05-0400Body dianqi19.11 kgSS[facility]hab06-06-2025 11:05-0400Diastolic blood mm[Hg][facility]06-06-2025 11:05-0400Systolic blood bbiwdptp235 mm[Hg][facility]05-20-2025 10:37-0400Body mass index (BMI) [Ratio]28.67 kg/m2Sunshine THAO Work Phone: [facility] HospitalGroqtbvfbi54-64-2820 10:37-0400Body .75 kgSunshine THAO Work Phone: [facility] HospitalIjftreagnz06-84-2522 10:37-0400Diastolic blood mvkisbpg54 mm[Hg]Sunshine THAO Work Phone: [facility] HospitalKvknybfnpk93-20-5152 10:37-0400Systolic blood ebopjagj088 mm[Hg]Sunshine THAO Work Phone: [facility] HospitalBaoeoqidou66-36-9605 14:00-0500Hourly Rounding Kai [facility]12-03-2024 14:00-0500Promise to ReturnEmmanMercy Health [facility]12-03-2024 13:00-0500Hourly RoundingEmmanMercy Health Anderson Hospital12-03-2024 13:00-0500 Promise to ReturnEmmanmirna [facility]12-03-2024 12:00-0500Hourly RoundingEmmanMercy Health Anderson Hospital12-03-2024 12:00-0500Promise to ReturnEmmanMercy Health [facility] Hospital 03-13-2024 04:08-0500Heart rate61 /minEmmanMercy Health Anderson Hospital12-03-2024 04:08-7175NtR2% (BldA) [Mass fraction]98 %[facility]12-03-2024 04:07-0500Diastolic blood fixknmqo10 mm[Hg][facility]aiMer[facility] Hospital12-03-2024 04:07-0500Mean blood mm[Hg][facility]aiMer[facility]12-03-2024 04:07-0500Systolic blood yqgktskb69 mm[Hg][facility]Mer[facility]12-03-2024 04:00-0500Blood Pressure LocationeveretteMercy Health Anderson Hospital12-03-2024 04:00-0500Body lnvsvzocweg98.88 [degF][facility]aiMer[facility]12-03-2024 01:00-0500Blood Pressure Location KaiMer[facility]12-03-2024 01:00-0500Diastolic blood ssmuxdpn92 mm[Hg][facility]12-03-2024 01:00-0500Heart rate67 /minEarabelladeannamirna [facility] 03-13-2024 01:00-0500Mean blood nqbxuejs44 mm[Hg]Kai [facility]12-03-2024 01:00-0500Systolic blood eawhwigg29 mm[Hg]Kai [facility]12-03-2024 00:49-0500Heart rate63 /min KaiMer[facility]12-03-2024 00:49-3395SwG1% (BldA) [Mass fraction]98 %[facility]aiMer[facility] Health [facility] Hospital12-03-2024 00:49-0500Diastolic blood ndhbraqz78 mm[Hg][facility]12-03-2024 00:49-0500Mean blood ihkoutuj63 mm[Hg]Kai [facility]12-03-2024 00:49-0500Systolic blood qlbslxym89 mm[Hg][facility]Mer[facility]12-03-2024 00:49-0500Body fydralxdpvl93.52 [degF][facility]aiMer[facility]12-02-2024 19:41-6217GeO8% (BldA) [Mass fraction]99 %[facility]aiMer[facility]12-02-2024 19:40-0500Body kgywygrqxev62.88 [degF][facility]aiMer[facility]12-02-2024 19:40-0500Mean blood zjwyjnsn95 mm[Hg][facility]12-02-2024 16:00-0500Body wdgfxqlmtew92.24 [degF][facility]12-02-2024 13:01-0500Body kmwohoqosim35.88 [degF][facility]aiMer[facility]12-02-2024 13:00-0500Heart rate87 /[facility]EOur [facility] 03-12-2024 11:53-0500Mean blood bjsfiomu60 mm[Hg][facility]12-02-2024 11:53-0500Respiratory rate13 /[facility]ingMer[facility] Health [facility] Hospital12-02-2024 11:00-0500Mean blood shqbsjmu03 mm[Hg][facility]Mer[facility]12-02-2024 10:30-0500Respiratory rate11 /[facility]ingMer[facility] Health [facility]12-02-2024 07:04-0500 Respiratory rate16 /[facility]12-02-2024 05:46-0500Heart rate84 /[facility] Encounters Encounter DateEncounter TypeCare ProviderFacilityStart: 02-06-2025 End: 33-94-8822Rqnnsq Jimmy THAO Work Phone: [facility] OBGYNStart: 02-06-2025 End: 46-08-6057Waelfd flowsMann THAO Work Phone: [facility] OBGYNStart: 02-06-2025 End: 69-88-4219Qqxtegpw flow Yi THAO Work Phone: [facility]ash OBGYNComment on above:Second trimester ([facility]); 27 weeks gestation of ([facility])Start: 02-06-2025 End: 87-23-8032kbevqngrjrWRS RAMEYNot AvailableStart: 01-28-2025 End: 99-58-0707Hkrtcb outpatient new 20 minutesRylearchana THAO Work Phone: NOIX Amy DermatologyComment on above:Melanocytic nevus of left upper extremity (Primary Dx); Melanocytic nevus, unspecified locationStart: 01-28-2025 End: 50-97-6663lkcpmkenwzNMUGE NORTHEIMNneelima AvailableStart: 01-28-2025 End: 16-35-6747Rgmdhv flowsheetMarcos Salshayy PA Work Phone: [facility] DermatologyStart: 01-28-2025 End: 68-12-7657Vtcwqr flowsheetMarcos [facility] PA Work Phone: [facility] DermatologyStart: 01-15-2025 End: 76-58-3301Vrfbqa flowsheetWalter Sainz METEOROLOGY INSTRUCTOR Work Phone: [facility] OBGYNStart: 01-15-2025 End: 93-85-3551Kfshvl flowsheetKrmacya Emeli METEOROLOGY INSTRUCTOR Work Phone: [facility] OBGYNStart: 01-15-2025 End: 26-70-9264Pvkzqd outpatient visit 15 minutesWalter Sainz NP Work Phone: [facility] Tash OBGYNComment on above:24 weeks gestation of ([facility]); Second trimester ([facility]); Diabetes mellitus screening; PruritusStart: 01-15-2025 End: 42-68-5737lbbhehtftjSHQGLOSA EBERLYNot AvailableStart: 12-17-2024 End: 59-94-4619Kyopsi outpatient visit 15 minutesWalter Sainz NP Work Phone: [facility] OBGYNComment on above:Second trimester ([facility]); 20 weeks gestation of ([facility]); Vasovagal episodeStart: 12-17-2024 End: 85-72-3085ndjtzkmuuyQLDUBONJ EBERLYNot AvailableStart: 11-13-2024 End: 23-51-5391Irsnfj outpatient visit 15 minutesSunshine THAO Work Phone: [facility] OBGYNComment on above:Second trimester ([facility]); 15 weeks gestation of ([facility]); Vasovagal episode; Need for maternal serum alpha-protein (MSAFP) screening ([facility]); Screening, , for anatomic survey ([facility])Start: 11-13-2024 End: 45-11-7945falgndgvwpACI RAMEYNot AvailableStart: 11-05-2024 End: 18-72-3453fguhemomeiRDX RAMEYNot AvailableStart: 11-05-2024 End: 21-74-3115Ukgtphyn flow sheetSunshine Ding KEESHA Work Phone: [facility] Tash OBGYNComment on above:Second trimester ([facility]); 14 weeks gestation of ([facility]); Vasovagal symptom; Screen for STD (sexually transmitted disease); Yeast infectionStart: 11-05-2024 End: 93-70-3958Oledsy flowsMann Mcclainphu THAO Work Phone: [facility] OBGYNStart: 11-05-2024 End: 74-06-5817Mlbxes keoSunshine Edison PA Work Phone: [facility] OBGYNStart: 10-16-2024 End: 42-31-4544Olpvbs flowsheetCorey Lalitha DO Work Phone: [facility] BCP OBStart: 10-16-2024 End: 86-49-4107Tmrzsb flowsheetCorey Lalitha DO Work Phone: [facility] BCP OBStart: 10-16-2024 End: 72-51-9043Syxzliye flow sheetCorey Lalitha DO Work Phone: [facility] BCP OBComment on above:First trimester ([facility]); 11 weeks gestation of ([facility]); Vasovagal episodeStart: 10-16-2024 End: 31-82-6744evoqxoxrpoBAQLU FAZIONot AvailableStart: 10-08-2024 End: 40-68-1675Hlahncjah Result EncounterCorey Lalitha DO Work Phone: NOM[facility] External Department UnsolicitedStart: 10-08-2024 End: 87-02-4764Zxgpuklsf Result EncounterCorey Lalitha DO Work Phone: [facility] External Department UnsolicitedStart: 09-14-2024 End: 18-93-3264Msgzlzaca Result EncounterCorey Lalitha DO Work Phone: noMS External Department UnsolicitedStart: 09-14-2024 End: 96-13-1423Orhmhdqrz Result EncounterCorey Lalitha DO Work Phone: noms External Department UnsolicitedStart: 09-14-2024 End: 48-64-1288kmrztmdtqpSBG RAMEYNot AvailableStart: 09-14-2024 End: 06-39-6352Dcvmou outpatient visit 5 minutesNoms Bcp Ob Lalitha NurseNOMS BCP OBComment on above:GA: 0u4kSokxx: 08-30-2024 End: 73-08-5891gccozxwajrUVY RAMEYNot AvailableStart: 08-28-2024 End: 88-14-1902Ppgenj flowsheetSunshine THAO Work Phone: noMS BCP OBStart: 08-28-2024 End: 38-87-0733Oslpgy flowsheetSunshine THAO Work Phone: noMS BCP OBStart: 08-28-2024 End: 08-20-4669Uxxfknvnj Result EncounterAmy Caridad THAO Work Phone: noMS External Department UnsolicitedStart: 08-28-2024 End: 53-76-3697Idxllehw Result EncounterSunshine THAO Work Phone: noMS External Department UnsolicitedStart: 08-28-2024 End: 80-23-7697pnzkonilciGAJ RAMEYNot AvailableStart: 08-28-2024 End: 84-08-1436Icuscfv encounter procedureSunshine THAO Work Phone: [facility] Work Phone: Start: 08-28-2024 End: 84-06-6789Nnremtxz preventive med est patient 18-39 yrsSunshine THAO Work Phone: noms BCP OBComment on above:Well woman exam with routine gynecological exam; Missed mensesStart: 06-04-2024 End: 42-24-3713evkvvyxiecRNZXLVNAbbeville Area Medical Centertart: 06-04-2024 End: 37-65-0043Yiilkzadwc hospital visit by Radha Ba DO Work Phone: [facility] Non-Invasive CardiologyComment on above:Palpitations; Pre-syncopeStart: 03-12-2024 End: 98-39-9511gndlqgksakAipelqr Leonor IvanrFacility:FTMCStart: 03-12-2024 Emergency department patient visitDO Tuan Marmolejo DomarinaenFacility:FTMCStart: 03-12-2024 End: 21-83-9859LoimbauzvjeMwtvltkz [facility] Start: 05-26-2022 End: 54-91-9207xhjocjosdcJF MORRO LALITHA .Facility:U9Sousi: 05-12-2022 End: 92-97-6734hrzhcysaevUD MORRO LALITHA .Facility:N9Vagdn: 03-13-2022 End: 99-33-5580aakbuuhamyHzcnifyj CommunityFacility:[facility]tart: 03-13-2022 End: 75-94-6231uffgrkgttrJAKCPOKPZ NO [facility] Work Phone: Start: 03-13-2022 End: 07-65-0473Hfnlkrru ReferredPHYSICIAN NO [facility]-Community Outreach Procedures DateProcedureProcedure DetailPerforming ClinicianStart: 86-27-5565Uskeh dip stick/tablet rgnt non-auto w/o micrscAnastasiya THAO Work Phone: Start: 21-49-0566Qfbqf dip stick/tablet rgnt non-auto w/o micrscpWalter Sainz METEOROLOGY INSTRUCTOR Work Phone: Start: 59-65-9075Zjvrm dip stick/tablet rgnt non-auto w/o micrscpWalter Sainz METEOROLOGY INSTRUCTOR Work Phone: Start: 09-34-4234Edwov dip stick/tablet rgnt non-auto w/o charlottescAnastasiya Ding PA Work Phone: Start: 63-88-4712Uihbv dip stick/tablet rgnt non-auto w/o micrscpAmy Caridad THAO Work Phone: Start: 20-11-6221Grsyu dip stick/tablet rgnt non-auto w/o micrscpCorey Lalitha DO Work Phone: Start: 44-50-4525CXZ CBC WITH AUTO DIFFCorey Lalitha DO Work Phone: Start: 18-12-4770WO OB TRANSVAGINALCorey Lalitha DO Work Phone: Start: 06-93-2187Nzcal test visual color cmprsn methsCorey Lalitha DO Work Phone: Start: 49-35-4524PYUIGBVKE VAGINITIS (HTRX)Sunshine THAO Work Phone: Start: 72-98-4842CAR PREG QUANT HCGSunshine THAO Work Phone: Start: 68-56-5423Onlbb test visual color cmprsn methsAmy Caridad THAO Work Phone: None (qualifier value)Kai Mcrae Plan of Treatment DateCare ActivityDetailAuthorStart: 02-20-2025 End: 01-61-5065Vcfgdum encounter ktqpzwlyp71/12/2025 10:50 AM EST Routine [facility] [address] [place] [id number] Morro Doty DO [address] [place] [address] NOMDiogenes [place] OBGYNStart: 02-06-2025 End: 28-06-4549Ucjapma encounter procedureNOMS Tash OBGYNComment on above: ArrivedStart: 01-31-2025 End: 41-94-1613Mkscrnj encounter mxbivdomp21/23/2025 3:50 PM EDT Office Visit [facility] [address] [place] [address] Tashi Lucerolee, PA [address] [place] [id number] [facility] DermatologyStart: 01-28-2025 End: 34-82-9197Cpeyeul encounter bxljrpoam22/20/2025 3:40 PM EDT Office Visit [facility] [address] [place] [address] SalbrandeeMarcos, PA [address] [place] [address] ArrivedTAY Orr DermatologyComment on above:ArrivedStart: 01-15-2025 End: 02-05-1175Gbdi acids, totalBile acids, total Lab Routine Pruritus Expected: 01/15/2025 (Approximate), Expires: 01/15/2026NONH HealthcareComment on above: Expected: 01/15/2025 (Approximate), Expires: 01/15/2026Start: 01-15-2025 End: 07-66-3568TRT panel - Blood by Automated countCBC Lab Routine Diabetes mellitus screening Expected: 01/15/2025 (Approximate), Expires: 01/15/2026[facility] Work Phone: comment on above:Expected: 01/15/2025 (Approximate), Expires: 01/15/2026Start: 01-15-2025 End: 43-17-1097CXU W Auto Differential panel - BloodCBC and differential Lab Routine Pruritus Expected: 01/15/2025 (Approximate), Expires: 01/15/2026[facility] HealthcareComment on above:Expected: 01/15/2025 (Approximate), Expires: 01/15/2026Start: 01-15-2025 End: 50-96-5228Rjwnlgl function 2000 panel - Serum or PlasmaHepatic function panel Lab Routine Pruritus Expected: 01/15/2025 (Approximate), Expires: 01/15/2026NONH HealthcareComment on above:Expected: 01/15/2025 (Approximate), Expires: 01/15/2026Start: 01-15-2025 End: 02-80-5164Lcwpeimdy C virus Ab [Presence] in Serum or Plasma by Immunoassay Hepatitis C antibody Lab Routine Pruritus Expected: 01/15/2025 (Approximate), Expires: 01/15/2026[facility] HealthcareComment on above:Expected: 01/15/2025 (Approximate), Expires: 01/15/2026Start: 01-15-2025 End: 61-56-7167Ffggfdtngio of glucose 1 hour after glucose challenge for glucose tolerance testGlucose tolerance, 1 hour Lab Routine Diabetes mellitus screening Expected: 01/15/2025 (Approximate), Expires: 01/15/2026[facility] HealthcareComment on above:Expected: 01/15/2025 (Approximate), Expires: 01/15/2026Start: 01-15-2025 End: 18-67-3396Mplqlxlwoii [Units/volume] in Serum or PlasmaTSH Lab Routine Pruritus Expected: 01/15/2025 (Approximate), Expires: 01/15/2026[facility] Healthcare Comment on above:Expected: 01/15/2025 (Approximate), Expires: 01/15/2026Start: 01-15-2025 End: 22-22-8765Mbaozjw encounter procedureNOMS [place] OBGYNComment on above: ArrivedStart: 12-17-2024 End: 19-26-1122Rtolwrx encounter wkyfrdxtc23/08/2025 9:20 AM EDT Routine [facility] [address] [place] Morro Doty DO [address] [place] [address] NOMDiogenes BLAKEGYNStart: 12-17-2024 End: 92-19-4353Wpdymrueegxs / ancillary services fxfnzqsuzu86/08/2025 8:00 AM EDT Ancillary Procedure [facility] [address] [address] [place] [address] VZWV Currie OBGYNStart: 11-13-2024 End: 41-15-3738Qwwml fetoprotein, maternalAlpha fetoprotein, maternal Lab Routine Need for maternal serum alpha-protein (MSAFP) screening ([facility]) Expected: 11/13/2024 (Approximate), Expires: 01/13/2025[facility] Work Phone: comment on above:Expected: 11/13/2024 (Approximate), Expires: 01/13/2025Start: 11-13-2024 End: 24-64-3200IA for pregnancyUS OB 14+ weeks anatomy scan Imaging Routine Screening, , for anatomic survey ([facility]) Expected: 11/13/2024 (Approximate), Expires: 02/13/2025NOMS HealthcareComment on above:Expected: 11/13/2024 (Approximate), Expires: 02/13/2025Start: 11-13-2024 End: 96-18-4126Uuhzseo encounter procedureNOMS BCP OBStart: 10-16-2024 End: 07-22-8329Paqyblm encounter procedureNOMS BCP OBComment on above:Arrived Start: 12-31-7406Vzsjyaxyqk ScreenDepression ScreenBon [facility] Start: 09-14-2024 End: 23-44-9690YMI/RhABO/Rh Lab Routine Missed menses , unspecified gestational age Expected: 09/14/2024 (Approximate), Expires: 09/14/2025NONH HealthcareComment on above:Expected: 09/14/2024 (Approximate), Expires: 09/14/2025Start: 09-14-2024 End: 20-35-5198Ncgjf type and Indirect antibody screen panel - BloodType and screen Lab Routine Missed menses , unspecified gestational age Expected: 09/14/2024 (Approximate), Expires: 09/14/2025[facility] Work Phone: comment on above:Expected: 09/14/2024 (Approximate), Expires: 09/14/2025Start: 09-14-2024 End: 60-76-6123Pbrec of abuse panel - Urine by Screen methodRapid drug screen, urine Lab Routine , unspecified gestational age Encounter for supervision of normal first in first trimester Expected: 09/14/2024 (Approximate), Expires: 09/14/2025NONH HealthcareComment on above:Expected: 09/14/2024 (Approximate), Expires: 09/14/2025Start: 08-30-2024 End: 57-13-9339rsfxcmtiac93/22/2025 2:00 PM EDT Initial [facility] [address] [place] [address] ZURU BCP OBStart: 08-30-2024 End: 56-25-4979Gxqyhbyaigol / ancillary services litqcrkesa42/22/2025 1:30 PM EDT Ancillary Procedure [facility] [address] [place] [address] [place] [address] [facility] BCP OBStart: 08-28-2024 End: 20-40-7673nAO, quantitative, pregnancyhCG, quantitative, Lab Routine Missed menses Expected: 08/28/2024 (Approximate), Expires:08/28/2025NONH HealthcareComment on above:Expected: 08/28/2024 (Approximate), Expires: 08/28/2025Start: 08-28-2024 End: 17-22-1915KG Pelvis transvaginalUS OB transvaginal Imaging Routine Missed menses Expected: 08/28/2024, Expires: 11/28/2024NONH HealthcareComment on above: Expected: 08/28/2024, Expires: 11/28/2024Start: 56-00-9374EFSEG-19 Vaccine ( season)COVID-19 Vaccine ( season)[facility] Start: 01-05-5651Neksdzilb vaccinationFlu vaccine (#1)[facility] Start: 02-94-5696Mbuxowuiz for malignant neoplasm of cervixPap smearBon [facility] HospitalStart: 71-23-9868IMfY/Tdap/Td vaccine (1 - Tdap)DTaP/Tdap/Td vaccine (1 - Tdap)[facility] HospitalStart: 67-74-3514Dymyrcvkm B vaccine (1 of 3 - 19+ 3-dose series)Hepatitis B vaccine (1 of 3 - 19+ 3-dose series)[facility] HospitalStart: 13-25-8361Qjggkupkf C screeningHepatitis C screenBon [facility] CenterStart: 66-17-1832CVN screeningHIV screenBon [facility] Start: 76-94-3470HZA vaccine (1 - 3-dose series)HPV vaccine (1 - 3-dose series) [facility]: 56-07-7958Sbefkokfj vaccine (1 of 2 - 13+ 2-dose series)Varicella vaccine (1 of 2 - 13+ 2-dose series)[facility] Bacteria identified in Urine by CultureUrine culture Microbiology Routine Missed menses Ordered: 09/14/2024[facility]Comment [facility] above:Ordered: 09/14/2024 CBC W Auto Differential panel - BloodCBC and differential Lab Routine Missed menses , unspecified gestational age Ordered: 09/14/2024[facility] Comment on above:Ordered: 09/14/2024HLAMYDIA TRACHOMATIS (GENITO/STI)CHLAMYDIA TRACHOMATIS (GENITO/STI) Lab Routine Screen for STD (sexually transmitted disease) Ordered: 11/05/2024[facility] HospitalComment on above:Ordered: 11/05/2024 Cytology Cervical or vaginal smear or scraping studyPap Smear Pathology and Cytology Routine Well woman exam with routine gynecological exam Ordered: [facility] Work Phone: comment on above:Ordered: 08/28/2024 End: 37-90-7198Yppmdmky cardiac holter monitor (3 days-14 day)[facility] HospitalComment on above:1 Occurrences starting 06/04/2024 until 06/04/2024 Hemoglobin A1c/Hemoglobin.total in BloodHemoglobin A1c Lab Routine Missed menses , unspecified gestational age Ordered: 09/14/2024[facility] Comment on above:Ordered: 09/14/2024Hepatitis B virus surface Ag [Presence] in Serum or Plasma by ImmunoassayHepatitis B surface antigen Lab Routine Missed menses , unspecified gestational age Ordered: 09/14/2024[facility] Comment on above:Ordered: 09/14/2024Hepatitis C virus Ab [Presence] in Serum or Plasma by ImmunoassayHepatitis C antibody Lab Routine Missed menses , unspecified gestational age Ordered: 09/14/2024[facility] HealthcareComment on above: Ordered: 09/14/2024HIV-1/HIV-2 antigen/antibody combination immunoassayHIV-1 and HIV-2 antibodies Lab Routine Missed menses , unspecified gestational age Ordered: 09/14/2024[facility] HealthcareComment on above:Ordered: 09/14/2024 Neisseria gonorrhoeae DNA [Presence] in Unspecified specimen by JACQUELINE with probe detectionNeisseria gonorrhea DNA probe, direct Lab Routine Screen for STD (sexually transmitted disease) Ordered: 11/05/2024[facility] HealthcareComment on above:Ordered: 11/05/2024Reagin Ab [Presence] in Serum by RPRRPR Lab Routine Missed menses , unspecified gestational age Ordered: 09/14/2024[facility] HealthcareComment on above:Ordered: 09/14/2024Rubella antibody, IgGRubella antibody, IgG Lab Routine Missed menses , unspecified gestational age Ordered: 09/14/2024[facility] HealthcareComment on above:Ordered: 09/14/2024 SURESWAB(R) ADVANCED VAGINITIS PLUS, TMASURESWAB(R) ADVANCED VAGINITIS PLUS, TMA Pathology and Cytology Routine Screen for STD (sexually transmitted disease) Yeast infection Ordered: 11/05/2024[facility] Work Phone: comment on above:Ordered: 11/05/2024 Immunizations Immunization DateImmunizationNotesCare EpluqwfzJmznjwbt81-23-1061ujmmhxuhr virus vaccine, live, attenuated, for intranasal [facility] [place] Payers DatePayer CategoryPayerPolicy [id number] Health Insurance [id number]-[id number] 2.16.840.1.946068.3.57[id number] 2.16.840.1.175050.3.57[id number] 2.16.840.1.805130.3.57[id number] 2.16.840.1.439283.3.57[id number] 2.16.840.1.834233.3.57[id number] 2.16.840.1.476142.3.57[id number] 2.16840.1.736470.3.57[id number] 2.16.840.1.330681.3.57[id number] 2.16.840.1.865727.3.57[id number] 2.16.840.1.579175.3.57[id number] 2.16.840.1.015781.3.579.[id number] 2.16.840.1.140797.3.57[id number] 2.16.840.1.116500.3.57[id number] 2.16840.1.903616.3.57[id number] 2.840.1.207328.3.57[id number] 2.840.1.448930.3.57[id number] 2.16.840.1.990912.3.57[id number] 2.0.1.659009.3.579.[id number] / [id number] [id number] 2..840.1.565735.3.579.2.531 Social History DateTypeDetailFacilityStart: 01-01-2017 End: 17-73-1962Xiykvbm smoking status NHISNever smoked tobacco (finding) [facility]: 49-30-6201Atk [facility] Comment on above:DeniesTobacco smoking statusNo Smoking Status [facility] Start: 08-18-2020 End: 80-60-3303Ouy [facility]igned At [facility]: 18-67-4570Ivnkvrp use and exposureSmokeless tobacco non-userBon BflyStart: 66-89-3940Yebfpbzzv beverage intakeLifetime non-drinker (finding) Bon BflyStart: 08-18-2020 End: 52-64-1811Thrqxms of Social functionBon Prestigos HealthHow often to you have a drink containing alcohol?NeverBon BflyStart: 94-31-9087Ykc many standard drinks containing alcohol do you have on a typical day?Not askedBon Bfly(I/We) worried whether (my/our) food would run out before (I/we) got money to buy more.Never trueBalaji Prestigos [facility] Start: 53-26-0663Onh assigned at birthNot on fileStonesprings Hospital CenterMayday PAC [facility] HospitalTobacco smoking status NHISTobacco smoking consumption unknownNONH HealthcareStart: 22-38-8828Nlxdgj identityIdentifies as female gender (finding)[facility] Start: 65-66-1591Znyyug orientationHeterosexual (finding)[facility] HealthcareStart: 35-80-6372AoythjyrsYBXF Healthcare Functional Status LhfuIetgrpsschWjlertWobrtkjs36-65-3581Fiabvnmkzs StatusMer[facility]12-02-2024Functional [facility] Clinical Notes 03-12-2024 to 02-06-2025 Note Date & JcazUxadSlvicmzj63-84-1515 History of Present illness Narrative* KEESHA Resendiz - 02/06/2025 9:20 AM EDT Reason for Appointment: Patient ID: Jyoti Torres is a 24 y.o. female who presents for Routine Visit Patient presents today for Return OB appointment. MEDICATIONS No current outpatient medications ALLERGIES No Known Allergies PROBLEMS Active Ambulatory Problems Diagnosis Date Noted Missed menses 08/30/2024 Amenorrhea 09/14/2024 Encounter for supervision of normal first in first trimester ([facility]) 09/14/2024 Vasovagal episode 10/16/2024 Resolved Ambulatory Problems Diagnosis Date Noted No Resolved Ambulatory Problems Past Medical History: Diagnosis Date Positive urine test ([facility]) HISTORY PAST MEDICAL HISTORY SOCIAL HISTORY Past Medical History: Diagnosis Date Positive urine test ([facility]) Social History Tobacco Use Smoking status: Not [...] ASSESSMENT & PLAN ICD-10-CM 1. Second trimester ([facility]) Z34.92 2. 27 weeks gestation of ([facility]) Z3A.27 POCT urinalysis dipstick manually resulted Return [...] behalf of: KEESHA Resendiz documented in this encounterI-70 Community HospitalTtbelnfeaz87-24-3308 History of Present illness Narrative* KEESHA Nj - 01/28/2025 3:40 PM EDT Lesions: Location: arms Duration: years Quality: itchy Associated symptoms: non-healing Treatments: none Lesion # 2: Location: left pinky Duration: years Quality: denies pain, denies itch, denies bleeding Associated symptoms: non-healing Treatments: none New patient All pertinent medical history, medications, and allergies were reviewed. General Exam: alert, oriented to person, place, and time, normal affect, well appearing Unaccompanied A focused exam completed based on patient reported problems, see below: Skin Exam 1. MELANOCYTIC NEVUS OF LEFT UPPER EXTREMITY Left Upper Arm - Anterior Scattered benign appearing, regular brown to light brown melanocytic papules and macules with similar morphology Counseled regarding these benign growths. Rarely, a nevus can develop into malignant melanoma, so any changing nevi should be promptly re-evaluated. 2. MELANOCYTIC NEVUS, UNSPECIFIED LOCATION Left Palmar Middle 5th Finger Scattered benign appearing, regular brown to light brown melanocytic papules and macules with similar morphology Counseled regarding these benign growths. Rarely, a nevus can develop into malignant melanoma, so any changing nevi should be promptly re-evaluated. Next Visit: prn for any new/changing lesions documented in this encounterI-70 Community HospitalVcmnbxipko62-83-5868 History of Present illness Narrative* Walter Sainz NP - 01/15/2025 10:30 AM EDT Reason for Appointment: Patient ID: Jyoti Torres is a 24 y.o. female who presents for Routine Visit Patient presents today for Return OB appointment. MEDICATIONS No current outpatient medications ALLERGIES No Known Allergies PROBLEMS Active Ambulatory Problems Diagnosis Date Noted Missed menses 08/30/2024 Amenorrhea 09/14/2024 Encounter for supervision of normal first in first trimester ([facility]) 09/14/2024 Vasovagal episode 10/16/2024 Resolved Ambulatory Problems Diagnosis Date Noted No Resolved Ambulatory Problems Past Medical History: Diagnosis Date Positive urine test ([facility]) HISTORY PAST MEDICAL HISTORY SOCIAL HISTORY Past Medical History: Diagnosis Date Positive urine test ([facility]) Social History Tobacco Use Smoking status: Not [...] nursing note reviewed. Exam conducted with a ink technician present. Vitals: Estimated body mass index is 32.17 kg/m as calculated from the following: Height as of 08/24/23: 5' 4 . Weight as of this encounter: 187 lb 6.4 oz. BP: 124/80 Patient's last menstrual period was 06/27/2024. ASSESSMENT & PLAN ICD-10-CM 1. 24 weeks gestation of ([facility]) Z3A.24 POCT urinalysis dipstick manually resulted 2. Second trimester ([facility]) Z34.92 3. Diabetes mellitus screening Z13.1 CBC [...] of: Walter Sainz NP documented in this encounterI-70 Community HospitalPkimrajlse92-89-2503 History of Present illness Narrative* Mary Fournier LPN - 12/17/2024 9:20 AM EDT Reason for Appointment: Patient ID: Jyoti Torres is a 24 y.o. female who presents for Routine Visit Patient presents today for Return OB appointment. MEDICATIONS No current outpatient medications ALLERGIES No Known Allergies PROBLEMS Active Ambulatory Problems Diagnosis Date Noted Missed menses 08/30/2024 Amenorrhea 09/14/2024 Encounter for supervision of normal first in first trimester ([facility]) 09/14/2024 Vasovagal episode 10/16/2024 Resolved Ambulatory Problems Diagnosis Date Noted No Resolved Ambulatory Problems Past Medical History: Diagnosis Date Positive urine test ([facility]) HISTORY PAST MEDICAL HISTORY SOCIAL HISTORY Past Medical History: Diagnosis Date Positive urine test ([facility]) Social History Tobacco Use Smoking status: Not [...] nursing note reviewed. Exam conducted with a ink technician present. Vitals: Estimated body mass index is 31.07 kg/m as calculated from the following: Height as of 08/24/23: 5' 4 . Weight as of this encounter: 181 lb. BP: 118/74 Patient's last menstrual period was 06/27/2024. ASSESSMENT & PLAN ICD-10-CM 1. Second trimester ([facility]) Z34.92 POCT urinalysis dipstick manually resulted 2. 20 weeks gestation of ([facility]) Z3A.20 3. Vasovagal episode R55 Patient presents today for a routine obstetrics appointment. Patient is currently 20w2d with a Estimated Date of Delivery: 05/04/25. Patient complaints of shoulder discomfort. Discussed goingto Chiropractor for an adjustment and if still needed to discuss PT later on in . Patient had anatomy scan done prior to today's appointment. Patient to return to clinic in 4 weeks for routine OB appointment. Documented by aMry Fournier LPN on behalf of: Walter Sainz NP documented in this encounterI-70 Community HospitalTvssjpqjcq75-21-4499 History of Present illness Narrative* KEESHA Resendiz - 11/13/2024 11:00 AM EDT Reason for Appointment: Patient ID: Jyoti Torres is a 24 y.o. female who presents for Routine Visit Patient presents today for Return OB appointment. MEDICATIONS No current outpatient medications ALLERGIES No Known Allergies PROBLEMS Active Ambulatory Problems Diagnosis Date Noted Missed menses 08/30/2024 Amenorrhea 09/14/2024 Encounter for supervision of normal first in first trimester ([facility]) 09/14/2024 Vasovagal episode 10/16/2024 Resolved Ambulatory Problems Diagnosis Date Noted No Resolved Ambulatory Problems Past Medical History: Diagnosis Date Positive urine test ([facility]) HISTORY PAST MEDICAL HISTORY SOCIAL HISTORY Past Medical History: Diagnosis Date Positive urine test ([facility]) Social History Tobacco Use Smoking status: Not [...] ASSESSMENT & PLAN ICD-10-CM 1. Second trimester ([facility]) Z34.92 POCT urinalysis dipstick manually resulted 2. 15 weeks gestation of ([facility]) Z3A.15 3. Vasovagal episode R55 4. Need for maternal serum alpha-protein (MSAFP) screening ([facility]) Z36.1 Alpha fetoprotein, maternal Alpha fetoprotein, maternal [...] MSAFP/Anatomy US order to have obtained at [facility]. Orders Placed This Encounter Procedures Alpha fetoprotein, maternal POCT urinalysis dipstick manually resulted Follow Up: Patient is to return to office in 4 week for routine OB appointment. Documented by Olena Gould MA on behalf of: KEESHA Resendiz documented in this encounterI-70 Community HospitalMhxtjtgjvn30-75-1225 History of Present illness Narrative* KEESHA Resendiz - 11/05/2024 3:20 PM EDT Reason for Appointment: Patient ID: Jyoti Torres is a 24 y.o. female who presents for Routine Visit Patient presents today for STD Check. and Return OB appointment. MEDICATIONS No current outpatient medications ALLERGIES No Known Allergies PROBLEMS Active Ambulatory Problems Diagnosis Date Noted Missed menses 08/30/2024 Amenorrhea 09/14/2024 Encounter for supervision of normal first in first trimester ([facility]) 09/14/2024 Vasovagal episode 10/16/2024 Resolved Ambulatory Problems [...] 06/27/2024. ASSESSMENT & PLAN (Z34.92) Second trimester ([facility]) Plan: POCT urinalysis dipstick manually resulted (Z3A.14) 14 weeks gestation of ([facility]) (R55) Vasovagal symptom (Z11.3) Screen for STD [...] behalf of: KEESHA Resendiz documented in this encounterI-70 Community HospitalGplnrepfpy80-34-9807 History of Present illness Narrative* Анна Hare LPN - 10/16/2024 9:10 AM EDT Reason for Appointment: Patient ID: Jyoti Torres is a 23 y.o. female who presents for Routine Visit Patient presents today for Return OB appointment. MEDICATIONS No current outpatient medications ALLERGIES No Known Allergies PROBLEMS Active Ambulatory Problems Diagnosis Date Noted Missed menses 08/30/2024 Amenorrhea 09/14/2024 Encounter for supervision of normal first in first trimester ([facility]) 09/14/2024 Vasovagal episode 10/16/2024 Resolved Ambulatory Problems [...] nursing note reviewed. Exam conducted with a ink technician present. Vitals: Estimated body mass index is 29.35 kg/m as calculated from the following: Height as of 08/24/23: 5' 4 . Weight as of this encounter: 171 lb. BP: 112/64 Patient's last menstrual period was 06/27/2024. ASSESSMENT & PLAN ICD-10-CM 1. First trimester ([facility]) Z34.91 POCT urinalysis dipstick manually resulted 2. 11 weeks gestation of ([facility]) Z3A.11 3. Vasovagal episode R55 New OB: [...] or undercooked meat, and [facility]. Patient has been consulted regarding any further do's and don'tsof . Patient voiced understanding and all questions and concerns were answered. Orders Placed This Encounter Procedures POCT urinalysis dipstick manually resulted Follow Up: Patient is to return in 4 weeks for routine OB appointment. Documented by Анна Hare LPN on behalf of: Morro Doty DO documented in this encounterI-70 Community HospitalUytictjjek23-18-4566 History of Present illness Narrative* Olena Gould MA - 09/14/2024 10:30 AM EDT Reason for Appointment: Patient [...] weeks gestation of Nurse Note: Patient desires [place]. Advised pt to make sure to wait until 9 weeks and take labs along w/[place] to have drawn. The lab will not [...] drink 6-8 glasses of water a day, eatno raw or undercooked meat, and [facility]. Patient has also been advised to not change litter boxes and eat 6 small meals a day. Patient has been consulted regarding the do's and don'ts ofpregnancy. Patient was given labs and all questions [...] by: Olena Gould MA documented in this encounterI-70 Community HospitalEayzvhtjmx47-04-4780 History of Present illness Narrative* KEESHA Resendiz - 08/28/2024 10:00 AM EDT Reason for Appointment: Patient ID: [...] nursing note reviewed. Exam conducted with a ink technician present. Vitals: Estimated body mass index [...] behalf of: KEESHA Resendiz documented in this encounterI-70 Community HospitalJqtrebbvqe94-02-0285 Evaluation + Plan note Extracted from:Title:Discharge NoteAuthor:Moses Smith DODate:03/13/24 Discharge To, Anticipated II - Home with responsible caregiver Prescriptions No active prescription medications Home No active home medications With When Contact Information Mark RIZVI, IRIS Alexander Within 2 to 4 weeks Additional Instructions: Call for followup appointment Remigio RIZVI, KYLAH Esteves Within 2 to 4 weeks [facility] [place] [address]- Additional Instructions: Postural Orthostatic Tachycardia Syndrome Orthostatic Hypotension Near-Syncope, Tlfl-bk-Drkl Extracted from:Title:Consult Note- NeurologyAuthor:Hayley Nicholas RN ADate: 03/13/24 The patient is a 23-year-old female with [...] Elevated white blood cell count, unspecified) Extracted from:Title:Admission H & PAuthor:Moses Smith DODate:03/12/24 Patient will be admitted und er observation [...] Ordered: Initial Hospital Care/Day Moderate 55 Minutes [id number] 2. Postural orthostatic tachycardia syndrome [POTS] (G90.A: [...] T4fr Reflex Vital Signs Weight Addendum by Moses Smith DO on March 12, 2024 12:09:17 EST Of note patient states her last menstrual cycle was 2 to 3 weeks ago. Patient states menstrual cycles have been irregular since coming off of control 2 years ago. Extracted from:Title:ED NoteAuthor:moises Juan SNELLmercedes ADate:03/12/24 Abdominal pain, acute (R10.9 : Unspecified abdominal [...] abdominal discomfort is treated with Toradol. She statesthat she still feels lightheaded and we did try to stand her up she was orthostatic positive and her blood pressure did drop despite taking p.o. fluids and despite receiving 500 mL fluid bolus. I didorder repeat 1 L fluid bolus. Patient did [...] Therefore case discussed with the hospitalist patient willneed to be admitted both for further evaluation of her syncope as well as her abdominal discomfort and leukocytosis as she will likely need serial examinations and repeat CBC. Additional diagnoses: Leukocytosis, hypotension Diagnostic Tests Pending * Cortisol 03/13/24 [facility] 12-03-2024 Hospital Discharge instructions Patient Education 03/13/2024 [...] Follow these instructions at home: Medicines Take lokd-hay-cqcgxfw and prescription medicines only as told by your health care provider. Let your health care provider know about all prescription or viwn-hes-wfkhpid medicines you take. These include herbs, vitamins, [...] provider. Document Revised: 10/08/2021 Document Reviewed: 10/08/2021 [employer] Patient Education 2023 [employer]do. 03/13/2024 11:57:29 Orthostatic Hypotension Orthostatic Hypotension Blood [...] Follow these instructions at home: Medicines Take bsmy-btc-hbfmdoh and prescription medicines only as told by [...] provider. Document Revised: 06/11/2021 Document Reviewed: 06/11/2021 [employer] Patient Education 2023 Jimdo. 03/13/2024 11:56:07 Near-Syncope, Jhno-sp-Xfic Near-Syncope Near-syncope is when you suddenly feel [...] Follow these instructions at home: Medicines Take qnwn-lzr-pfilplc and prescription medicines only as told by [...] provider. Document Revised: 08/06/2021 Document Reviewed: 08/06/2021 [employer] Patient Education 2023 Jimdo. 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 With:Mark RIZVI, Benjamin, CAR Address: When:2 to 4 weeks Comments:Call for followup appointment [facility] 12-03-2024 NoteDischarge Summary Admission and Discharge Information Admitting Physician - Thor RIZVI, Kai Lagos Consulting Physician - eRmigio RIZVI, Benjamin Ruiz MD [facility] [place]io, XXXX Admitting Diagnoses: Discharge Diagnoses 1. [...] EST, syncope, Consult and Co-manage Consult to Screw Machine Set Up Operator Tool - Ordered -- 03/12/24 13:52:06 EST Physical [...] home medications Follow-up With When Contact Information Benjamin Flores MD, CAR Within 2 to 4 weeks Additional Instructions: Call for followup appointment Anthony Flood MD, NEU Within 2 to 4 weeks [facility] [address] [place] [address]- Additional Instructions: Patient Education Postural Orthostatic Tac (more content not included)...[facility] Hospital[facility]:Result Comment: Electronically Signed By: Moses Smith DO\.br\Date and Time Signed: 03/13/24 12:08 [id number] Note Echocardiology Procedure Exam Date/Time Accession # Ordering Echo Transthoracic 03/13/2024 10:27 EST [id number] Moses Smith DO Complete CPT code [id number] Reason for Exam (Echo Transthoracic Complete) Syncope Report [facility] [address] [place] [address] Adult Echocardiogram Report Name: JYOTI TORRES Study Date: 03/13/2024 09:56 AM BP: 96/61 mmHg Patient Location: [address] [place] [address] Bed(s) [facility] HR: 57 : 2000 Gender: Female Height: [...] (Electronic Signature): 03/13/2024 10:43 am Signed by: Benjamni Flores MD Transcribed by: ROSE Technologist: [facility]12-03-2024 Note Consultation Note Chief Complaint abdomenal pain [...] sensation in all 4 extremities Cerebellar exam: Oalwya-hx-save reveals no ataxia. Gait is normal Assessment/Plan [...] None. Medications Inpatient ac (more content not included)...[facility] HospitalComment on above: Result Comment: Electronically Signed By: Hayley Nicholas RN\.br\Date and Time Signed: 03/13/24 07:03 EST\.br\Electronically Co-Signed By: Anthony Flood MD\.br\Date and Time Co-Signed: 03/13/2409:18 EST\.br\Electronically Co- Signed By: Hayley Nicholas RN [id number] NoteHistory and Physical Chief Complaint abd pain [...] 33.8 gm/dL (03/12/24 06:09:00) RDW: 12.5 % (12/02/24 06:09:00) Platelet: 245 E9/L (03/12/24 06:09:00) MPV: 7.6 fL (03/12/24 06:09:00) Neutro Auto: 82.9 % High (03/12/24 06:09:00) Lymph Auto: 10.6 % Low (03/12/24 06:09:00) Lawrence Auto: 5.7 % (03/12/24 06:09:00) Eos Auto: 0.6 % (03/12/24 06:09:00) Basophil Auto: 0.2 % (03/12/24 06:09:00) Neutro Absolute: 13.5 E9/L High (03/12/24 06:09:00) Lymph Absolute: 1.7 E9/L (03/12/24 06:09:00) Lawrence Absolute: 0.9 E9/L (03/12/24 06:09:00) Eos Absolute: [...] WBC: 0-5 (03/12/24 06:09:00) (more content not included)...[facility] HospitalComment on above:Result Comment: Electronically Signed By: Moses Smith DO\Date and Time Signed: 03/12/24 12:09 ESTEvaluation noteNo assessment information available [facility] Work Phone: Evaluation note* Diagnosis Palpitations Pre-syncope Syncope and collapse documented in this encounter [facility]* Diagnosis Well woman exam with routine gynecological exam Routine gynecological examination Missed menses [facility]* Diagnosis Amenorrhea Absence of menstruation Missed menses , unspecified gestational age Encounter for supervision of normal first in first trimester 6 weeks gestation of documented in this encounter [facility]* Diagnosis First trimester ([facility]) state, incidental 11 weeks gestation of ([facility]) Vasovagal episode Syncope and collapse [facility]* Diagnosis Second trimester ([facility]) state, incidental 14 weeks gestation of ([facility]) Vasovagal symptom Screen for STD (sexually transmitted disease) Screening examination for venereal disease Yeast infection documented [facility]* Diagnosis Second trimester ([facility]) state, incidental 15 weeks gestation of ([facility]) Vasovagal episode Syncope and collapse Need for maternal serum alpha-protein (MSAFP) screening ([facility]) Screening, , for anatomic survey ([facility]) Encounter for anatomic survey documented [facility]* Diagnosis Second trimester ([facility]) state, incidental 20 weeks gestation of ([facility]) Vasovagal episode Syncope and collapse [facility]* Diagnosis 24 weeks gestation of ([facility]) Second trimester ([facility]) state, incidental Diabetes mellitus screening Screening for diabetes mellitus Pruritus Unspecified pruritic disorder [facility]* Diagnosis Melanocytic nevus of left upper extremity- Primary Melanocytic nevus, unspecified location documented in this encounter [facility]* Diagnosis Second trimester ([facility]) state, incidental 27 weeks gestation of ([facility]) [facility] Narrative No data available for this section [facility] Progress note No data available for this section [facility] Chief Complaint and Reason for Visit Chief [...] Family History Records Found Reason for Referral SpecialtyDiagnoses / ProceduresReferred By ContactReferred To ContactCardiology Diagnoses Palpitations Pre-syncope Procedures Extended cardiac holter monitor (3 days-14 day) NM EXTERNAL ECG REC>48HR<7D REVIEW & INTERPRETATION NM EXTERNAL ECG REC>48HR<7D RECORDING NM EXTERNAL ECG REC>7D<15D RECORDING NM EXTERNAL ECG REC>7D<15D REVIEW & INTERPRETATION Jenna Ba DO [address] [place] [address] [address] Referral IDStatusReasonStart DateExpiration DateVisits RequestedVisits [id number]/24/20255/ Additional Source Comments Care Teams (unrecognized sec tion and content) Team Status: Inactive Member Role Status Dates Outreach Community Attending Provider Active PHYSICIAN NO FAMILYPrimary Care ProviderActive Team Status: Active Member Role Status Dates PHYSICIAN NO FAMILY Primary Care Provider Active Team MemberRelationshipSpecialtyStart DateEnd Date Jenna Ba DO [address] [place] [address] PCP - GeneralFamily Medicine09/29/23 MemberRelationshipSpecialtyStart DateEnd Date Jenna Ba MD [address] [place] [address] PCP - GeneralGeneral Pnsqnfvo69/10/24Team MemberRelationshipSpecialtyStart Date End Date Jenna Ba MD [address] [place] [address] PCP - GeneralGeneral Onrjrgxn07/10/24Team MemberRelationshipSpecialtyStart Date End Date Jenna Ba MD [address] [facility] [place] [address] PCP - GeneralGeneral Kgxfnpzd26/10/24Team MemberRelationshipSpecialtyStart Date End Date Jenna Ba MD [address] [place] [address] PCP - GeneralGeneral Srcjetxy02/10/24am MemberRelationshipSpecialtyStart Date End Date Jenna Ba MD [address] [place] [address] PCP - GeneralGeneral Xpraxqxg31/10/24am MemberRelationshipSpecialtyStart Date End Date Jenna Ba MD [address] [place] [address] PCP - GeneralGeneral Ohonborw27/10/24Team MemberRelationshipSpecialtyStart Date End Date Jenna Ba MD [address] [place] [address] PCP - GeneralGeneral Mmdxrtjk83/10/24Team MemberRelationshipSpecialtyStart Date End Date Jenna Ba MD [address] [place] [address] PCP - GeneralGeneral Ohnsqmky27/10/24Team MemberRelationshipSpecialtyStart Date End Date Jenna Ba MD [address] [place] [address] PCP - GeneralGeneral Rcwybhys06/10/24Team MemberRelationshipSpecialtyStart Date End Date Jenna Ba MD [address] [place] [address] PCP - GeneralGeneral Jdxxswcz11/10/24Te MemberRelationshipSpecialtyStart Date End Date Jenna Ba MD [address] [place] [address] PCP - GeneralGeneral Ooxoiwgu10/10/24Te MemberRelationshipSpecialtyStart Date End Date Jenna Ba MD [address] [place] [address] PCP - GeneralGeneral Uxkxvapu24/10/24 Goals (unrecognized section and content) Goals may be documented in a n alternate section No data available for this section INFORMATION SOURCE (unrecogn ized section and content) DATE CREATED AUTHOR 03/14/2022 [facility] DATE CREATED AUTHOR AUTHOR'S ORGANIZ ATION 07/23/2022 [facility] DATE CREATED AUTHOR AUTHOR'S ORGANIZ ATION 03/12/2024 [facility] DATE CREATED AUTHOR AUTHOR'S ORGANIZ ATION 03/14/2024 [facility] DATE CREATED AUTHOR AUTHOR'S ORGANIZ ATION 03/16/2024 [facility] DATE CREATED AUTHOR AUTHOR'S ORGANIZ ATION 06/08/2024 [facility] DATE CREATED AUTHOR AUTHOR'S ORGANIZ ATION 02/07/2025 [facility] EPIC Reason for Visit (unrecogniz ed section and content) SpecialtyDiagnoses / ProceduresReferred By ContactReferred To ContactCardiology Diagnoses Palpitations Pre-syncope Procedures Extended cardiac holter monitor (3 days-14 day) NM EXTERNAL ECG REC>48HR<7D REVIEW & INTERPRETATION NM EXTERNAL ECG REC>48HR<7D RECORDING NM EXTERNAL ECG REC>7D<15D RECORDING NM EXTERNAL ECG REC>7D<15D REVIEW & INTERPRETATION Jenna Ba DO [address] [place] [address] [facility] [address] [place] [address] Referral IDStatusReasonStart DateExpiration DateVisits RequestedVisits [id number]/24/20255/25/987294LolysqGgtpphuiIjhp Women VisitReason CommentsAmenorrheaReasonCommentsRoutine VisitReasonCommentsSkin Check FOR RECORDS PERTAINING TO PATIENTS WHO ARE [...] BE BASED ON THE PRIMARY CLINICAL RECORDS. [facility]. provides no warranty or guarantee of the accuracy or completeness of information in this document.
--- OUTSIDE RECORDS SUMMARY | 2025-02-16 15:09 | XMS_ITS ---
Author Organization [facility] Source Produ ction (ClinicalSummary Clone) Address Unknown Care Team Providers Care Research Nurse Practitioner Name Role Phone Unavailable Primary Care Physician Unavailab le Results * [UNITY] ANEUPLOIDY NIPT Performed by: [employer] Component Value Range Date Fraction 9.2% 10/16/2024 03:12 am UTCRh(D) NIPTRhD DPKLXUKX50/08/2025 03:12 am UTCSex Chromosome AneuploidyNOT LZMSMIQG01/08/2025 03:12 am UTCMonosomy XLOW RISK <1 in , 03:12 am UTCTrisomy 13LOW RISK <1 in , 03:12 am UTCTrisomy 18LOW RISK <1 in , 03:12 am UTCTrisomy 21LOW RISK <1 in , 03:12 am UTCFetal KnqUDTA1610/16/2024 03:12 am UTCPregnancy JqsdpaqlpZGSUXTFIB65/08/2025 03:12 am UTCFor detailed report, see PDFSee PDF 10/16/2024 03:12 am UTC10/16/2024 03:12 am UTC Social History Observation Value Start Date End Date
[2025-02-16 15:16] VITALS: BP 116/65; PULSE 71
--- OUTSIDE RECORDS SUMMARY | 2025-02-18 13:35 | XMS_ITS | Encounter Summary ---
Author Organization [facility] Address [address] [place] [address] Care Team Providers Care Recruitment Assistant Name Role Phone Emery Flood MD Primary Care Provider Encounter Details DateTypeDepartmentCare Team (Latest Contact Info)Ogvdklqmdxy18/29/2025amboo flowsheet [facility] [address] [place] [address] Sunshine Mclean PA [address] [place], [place] [address] Social History Tobacco UseTypesPacks/DayYears UsedDateSmoking Tobacco: Never Assessed Estimated Date of PokmjvapXcysaerfEhh74/24/2026Based on UltrasoundSex and Gender InformationValueDate RecordedSex Assigned at UlndcMkbbia93/14/2024 1:04 PM EDT Legal IiuFkyylq93/15/2023 11:49 PM EDTGender AhzxextvOafnxp08/14/2024 1:04 PM EDTSexual ZwouiettvhaMbvjjukx52/14/2024 1:04 PM EDTdocumented as of this encounter Plan of Treatment DateTypeDepartmentCare Team (Latest Contact Info)Rdnolshpmeq73/12/2025 10:50 AM ESTRoutine [facility] [address] [place] [address] Morro Doty DO [address] Donn [place], [facility]11 documented as of this encounter Visit Diagnoses Not on filedocumented in this encounter Care Teams Team MemberRelationshipSpecialtyStart DateEnd Date Emery Flood MD [address] [place] [address] PCP - GeneralGeneral Cudxzhnn27/10/24documented as of this encounter
--- OUTSIDE RECORDS SUMMARY | 2025-02-18 13:35 | XMS_ITS | Clinical Summary ---
Author Organization [facility] Address [address] [place] [address] Care Team Providers Care Child Guidance Counselor Name Role Phone Emery Flood MD Primary Care Provider [phone] Allergies No known active allergies Medications No known medications Active Problems ProblemNoted DateDiagnosed DateVasovagal mvcruzx3910/16/20240295Nbhmnrfzec36/06/2025 Encounter for supervision of normal first in first trimester ([facility]) 09/14/2024Missed axrhsr9508/30/2024Estimated Date of DeliveryCommentsYes 05/04/2025ased on Ultrasound Encounters DateTypeDepartmentCare PvdpDutnxcdrslh74/05/0470Ncrqzv90/29/2025 9:20 AM EDT Routine [facility] [address] [place] [phone] Sunshine Mclean PA Second trimester ([facility]); 27 weeks gestation of ([facility])02/06/2025amboo flowsheet [facility] [address] [place] [phone] Sunshine Mclean PA 01/30/20250416Qtazyg80/20/2025 3:40 PM EDTOffice Visit [facility] [address] [place] [address] Whit Lucero PA Melanocytic nevus of left upper extremity (Primary Dx); Melanocytic nevus, unspecified jryzjvep29/20/2025[facility] flowsheet [facility] [address] [place] [address] Whit Lucero PA 01/28/20253184Aeupiz38/16/7956Tblsdp39/07/2025 10:30 AM EDTRoutine [facility] [address] [place] [address] pAurva Sainz, PJ 24 weeks gestation of ([facility]); Second trimester ([facility]); Diabetes mellitus screening; Lxsdrpid60/07/2025[facility] flowsheet [facility] [address] [place] [address] [place] [address] Apurva Sainz NP 01/08/20253217Qqaczt46/08/2025 9:20 AM EDTRoutine [facility] [address] [place] [address] [place] [address] Apurva Sainz, PJ Second trimester ([facility]); 20 weeks gestation of ([facility]); Vasovagal dwkiote8312/17/2024 8:00 AM EDTAncillary Procedure [facility] [address] [place] [address] [place] [address] Screening, , for anatomic survey ([facility])12/10/2024Travelfrom Last 3 Months Social History Tobacco UseTypesPacks/DayYears UsedDateSmoking Tobacco: Never Assessed Estimated Date of HcwumaobMpvalgktNma15/24/2026ased on UltrasoundSex and Gender InformationValueDate RecordedSex Assigned at VbepmTftxgk96/14/2024 1:04 PM EDT Legal KnnVnfsuo49/15/2023 11:49 PM EDTGender EtvsqstiHvvhcz68/14/2024 1:04 PM EDTSexual OkajpirsvkdGtzjuyum67/14/2024 1:04 PM EDT Last Filed Vital Signs Vital SignReadingTime TakenCommentsBlood Xjbqwcyu911/6202/06/2025 9:38 AM EDT Pulse--Temperature--Respiratory Rate--Oxygen Saturation--Inhaled Oxygen Concentration--Pqtshs09.6 kg (191 lb)02/06/2025 9:38 AM JMSWkfheq123.6 cm (5' 4 )08/24/2023 9:07 AM EDTBody Mass Index32.7908/24/2023 9:07 AM EDT Plan of Treatment DateTypeDepartmentCare Team (Latest Contact Info)Eldeiyziaqr91/12/2025 10:50 AM ESTRoutine [facility] [address] [facility] [address] Morro Doty, [address] [place] [address] Procedures Procedure NamePriorityDate/TimeAssociated DiagnosisCommentsCBC (INCLUDES DIFF/PLT)Pgmbeae4302/06/2025 10:09 AM EDT Pruritus BILE ACIDS, QTMICIqujcpi62/29/2025 10:09 AM EDT Pruritus FKNYwfqhem74/29/2025 10:09 AM EDT Pruritus HEPATIC FUNCTION MMQRMFdadhzg44/29/2025 10:09 AM EDT Pruritus HEPATITIS C WCCYWHBWVliptbt60/29/2025 10:09 AM EDT Pruritus GLUCOSE TOLERANCE, 1 DCTLYjbpulm10/29/2025 10:09 AM EDT Diabetes mellitus screening YFYUchmoau71/29/2025 10:09 AM EDT Diabetes mellitus screening POCT URINALYSIS GNZNKDGRMazanib53/29/2025 9:51 AM EDT 27 weeks gestation of ([facility]) POCT URINALYSIS SIKCVGHAXpdggtg05/07/2025 10:43 AM EDT 24 weeks gestation of ([facility]) POCT URINALYSIS SPVBDZZERbyxzhe93/08/2025 9:15 AM EDT Second trimester ([facility]) US OB 14+ WEEKS ANATOMY XXPFPgajcmc99/08/2025 8:58 AM EDT Screening, , for anatomic survey ([facility]) from Last 3 Months Results * Hepatitis C antibody (02/06/2025 10:09 AM EDT)Specimen (Source)Anatomical Location / LateralityCollection Method / VolumeCollection TimeReceived Time BloodVenous blood specimen / Unknown Narrative Authorizing ProviderResult TypeResult StatusKrmacya Emeli NPLAB BLOOD ORDERABLESFinal ResultPerforming OrganizationAddressCity/State/ZIP CodePhone Number EXTERNAL LAB * Bile acids, total (02/06/2025 10:09 AM EDT)Specimen (Source)Anatomical Location / LateralityCollection Method / VolumeCollection TimeReceived Time BloodVenous blood specimen / Unknown Narrative Authorizing ProviderResult TypeResult StatusKrmacya Emeli NPLAB BLOOD ORDERABLESEdited Result - FinalPerforming OrganizationAddressCity/State/ZIP Code Phone Number EXTERNAL LAB * Glucose tolerance, 1 hour (02/06/2025 10:09 AM EDT)Specimen (Source)Anatomical Location / LateralityCollection Method / VolumeCollection TimeReceived Time BloodVenous blood specimen / Unknown Narrative Authorizing ProviderResult TypeResult StatusKrmacya Emeli NPLAB BLOOD ORDERABLESFinal ResultPerforming OrganizationAddressCity/State/ZIP CodePhone Number EXTERNAL LAB * CBC (02/06/2025 10:09 AM EDT)Specimen (Source)Anatomical Location / Laterality Collection Method / VolumeCollection TimeReceived TimeBloodVenous blood specimen / Unknown Narrative Authorizing ProviderResult TypeResult StatusKristina Emeli NPLAB BLOOD ORDERABLESFinal ResultPerforming OrganizationAddressCity/State/ZIP CodePhone Number EXTERNAL LAB * CBC and differential (02/06/2025 10:09 AM EDT)Specimen (Source)Anatomical Location / LateralityCollection Method / VolumeCollection TimeReceived Time BloodVenous blood specimen / Unknown Narrative Authorizing ProviderResult TypeResult StatusKristina Emeli NPLAB BLOOD ORDERABLESFinal ResultPerforming OrganizationAddressCity/State/ZIP CodePhone Number EXTERNAL LAB * TSH (02/06/2025 10:09 AM EDT)Specimen (Source)Anatomical Location / Laterality Collection Method / VolumeCollection TimeReceived TimeBloodVenous blood specimen / Unknown Narrative Authorizing ProviderResult TypeResult StatusApurva Sainz NPLAB BLOOD ORDERABLESFinal ResultPerforming OrganizationAddressCity/State/ZIP CodePhone Number EXTERNAL LAB * Hepatic function panel (02/06/2025 10:09 AM EDT)Specimen (Source)Anatomical Location / LateralityCollection Method / VolumeCollection TimeReceived Time BloodVenous blood specimen / Unknown Narrative Authorizing ProviderResult TypeResult StatusApurva Sainz NPLAB BLOOD ORDERABLESFinal ResultPerforming OrganizationAddressCity/State/ZIP CodePhone Number EXTERNAL LAB * (ABNORMAL) POCT urinalysis dipstick manually resulted (02/06/2025 9:51 AM EDT) Only the most recent of3 resultswithin the time period is included. ComponentValueRef RangeTest MethodAnalysis TimePerformed AtPathologist Signature Color, UAYellowClarity, UAClearGlucose, UANegativeNegative - 2000(110) ++++ mg/dLBilirubin, UANegativeNegative - 4(70) +++ mg/dLKetones, UANegativeNegative - 160(16) ++++ mg/dLSpec Grav, UA1.0101 - 1.03Blood, UANegativeNegative - 50 Edin/mcLpH, UA7.55 - 9Protein, UANegativeNegative - 2000(20) ++++ mg/dL Urobilinogen, UA1.00.2 - 12 mg/dLLeukocytes, UA3+Negative - 500+++ Tiffany/mcL Nitrite, UANegativeNegative - PositiveSpecimen (Source)Anatomical Location / LateralityCollection Method / VolumeCollection TimeReceived EdcvQzfad68/29/2025 9:51 AM EDT Narrative Authorizing ProviderResult TypeResult StatusSunshine Mclean PAPOINT OF CARE TEST ENTER/EDIT ORDERABLESFinal Result * US OB 14+ weeks anatomy scan (12/17/2024 8:58 AM EDT)Anatomical Region LateralityModalityBodyUltrasoundSpecimen (Source)Anatomical Location / LateralityCollection Method / VolumeCollection TimeReceived Time12/19/2024 2:53 PM EDT Impressions 12/19/2024 3:01 PM EDT 1. Single, live intrauterine , current sonographic age of 20 weeks and 2 days, with an estimated date of delivery of May 04, 2025. 2. 4.1 cm cervical length with a small amount of endocervical fluid * ??Estimated Weight (g) by Percentile is based upon an accurate estimated age based onlast menstrual period. ?? TRANSCRIBED BY: ? ELECTRONICALLY SIGNED BY: Live Hernandez MD Narrative [...] internal cervical os. The current sonographicage is ??weeks and ??days, based on the following measurements: ?BPD ? 4.5 cm (19 weeks, 4 days) ?Head Circumference ?17.3 cm (19 weeks, 6 days) ?Abdominal Circumference ?15.8 cm (20 weeks, 6 days) ?Femur Length ? 3.5 cm (20 weeks, 6 days) ?Presentation ? Breech ?Placenta ? Anterior ? Weight (g) by Percentile ??71.8 % * These measurements result in an estimated date of delivery of ?The current estimated weight is 375 grams (0 pounds, 13 ounces). ?? Procedure Note Live Hernandez MD - 12/19/2024 [...] BY: ELECTRONICALLY SIGNED BY: Live Hernandez MD Authorizing ProviderResult TypeResult StatusA[facility] PROCEDURES Final Result from Last 3 Months Insurance Care Teams Team MemberRelationshipSpecialtyStart DateEnd Date Emery Flood MD [address] [place] [address] PCP - GeneralGeneral Nfqujqiy21/10/24
--- OUTSIDE RECORDS SUMMARY | 2025-02-18 13:35 | XMS_ITS | Encounter Summary ---
Author Organization [facility] Address [address] [place] [address] Care Team Providers Care Nurses' Registry Director Name Role Phone Emery Flood MD Primary Care Provider Encounter Details DateTypeDepartmentCare Team (Latest Contact Info)Xljxrbwggqj11/05/2025Travel Social History Tobacco UseTypesPacks/DayYears UsedDateSmoking Tobacco: Never Assessed Estimated Date of FpzktjvpNldlbalwTuf10/24/2026Based on UltrasoundSex and Gender InformationValueDate RecordedSex Assigned at WxybaPdpmix80/14/2024 1:04 PM EDT Legal YctEbhlnh02/15/2023 11:49 PM EDTGender XvvhhuhaKunamn41/14/2024 1:04 PM EDTSexual EfasqfaspyuYiuwsexj35/14/2024 1:04 PM EDTdocumented as of this encounter Plan of Treatment DateTypeDepartmentCare Team (Latest Contact Info)Bsplqbvuyth55/12/2025 10:50 AM ESTRoutine [facility] [address] [facility] [facility] [place] [address] Morro Doty DO [address] [place], [place] [id number] documented as of this encounter Visit Diagnoses Not on filedocumented in this encounter Care Teams Team MemberRelationshipSpecialtyStart DateEnd Date Emery Flood MD [address] [place] [address] PCP - GeneralGeneral Htcixcwk42/10/24documented as of this encounter
--- OUTSIDE RECORDS SUMMARY | 2025-02-18 13:35 | XMS_ITS | Clinical Summary ---
Author Organization [facility] Address [address], [address] [place] [address] Care Team Providers Care Heel Seat Laster Name Role Phone Emery Flood DO Primary Care Provider Allergies No known active allergies Medications No known medications Active Problems ProblemNoted DateDiagnosed EyqwSbwbpsf16/10/2021ystolic tcduvs1808/18/2020 Resolved Problems ProblemNoted DateDiagnosed DateResolved QspkTcyfgww43/10/202112/08/2023 Epigastric inuqnhreke85/10/202112/08/2023 Family History Medical HistoryRelationNameCommentsHeart AttackFatherDadRelationNameStatus CommentsFatherDad Social History Tobacco UseTypesPacks/DayYears UsedDateSmoking Tobacco: NeverSmokeless Tobacco: Never Tobacco Cessation:Counseling Given: No Alcohol UseStandard Drinks/WeekCommentsNever0 (1 standard drink = 0.6 oz pure alcohol)AUDIT-CAnswerDate RecordedQ1: How often do you have a drink containing alcohol?Never08/18/2020Q2: How many drinks containing alcohol do you have on a typical day when you are drinking?Not asked08/18/2020Q3: How often do you have six or more drinks on one occasion?Never08/18/2020Overall Financial Resource Strain (CARDIA)AnswerDate RecordedHow hard is it for you to pay for the very basics like food, housing, medical care, and heating?Not hard at all09/29/2023 PHQ-2AnswerDate RecordedPHQ-9 Total Xntqp752Hunger Vital SignAnswerDate RecordedWithin the past 12 months, you worried that your food would run out before you got the money to buymore.Never true09/29/2023Within the past 12 months, the food you bought just didn't last and you didn't have money to get more.Never true09/29/2023RAPARE - TransportationAnswerDate RecordedLack of Transportation (Medical)Not on file09/29/2023In the past 12 months, has lack of transportation kept you from meetings, work, or from getting things needed for daily living?No09/29/2023Housing Stability Vital SignAnswerDate RecordedUnable to Pay for Housing in the Last YearNot on file09/29/2023Number of Places Lived in the Last YearNot on file09/29/2023In the last 12 months, was there a time when you did not have a steady place to sleep or slept in goodyearelter (including now)?No09/29/2023Food InsecurityAnswerDate RecordedWithin the past 12 months, you worried that your food would run out before you got the money to buymore.1 09/29/2023Within the past 12 months, the food you bought just didn't last and you didn't have money to get more.regnantCommentsNoSex and Gender InformationValueDate RecordedSex Assigned at BirthNot on fileLegal SexFemale 08/18/2020 12:42 PM EDTGender IdentityNot on fileSexual OrientationNot on file Last Filed Vital Signs Vital SignReadingTime TakenCommentsBlood Ioyjwcuj352/7603/15/2024 9:25 AM EST Uxcxo669403/15/2024 9:25 AM PBZTrcybxqhxsd96.4 ??C (97.6 ??F)03/15/2024 9:25 AM ESTRespiratory Fdkw264108/18/2020 12:59 PM EDTOxygen Ysyljczckn35%03/15/2024 9:25 AM ESTInhaled Oxygen Concentration--Rkzngp52.3 kg (174 lb 12.8 oz)03/15/2024 9:25 AM BXJTepljs030.6 cm (5' 4 )03/15/2024 9:25 AM ESTBody Mass Index30 03/15/2024 9:25 AM EST Plan of Treatment Health MaintenanceDue DateLast DoneCommentsVaricella vaccine (1 of 2 - 13+ 2- dose series)10/29/2011HIV hlmvep5910/28/2013HPV vaccine (1 - 3-dose series) 2013Hepatitis C abzmci6610/28/2016DTaP/Tdap/Td vaccine (1 - Tdap)2017 Hepatitis B vaccine (1 of 3 - 19+ 3-dose series)2017Pap smear10/29/2019 Depression Wwfzjs83/Flu vaccine (#1)11/09/2024OVID-19 Vaccine ( - 2023- season)2024Hepatitis A vaccineAged OutNo longer eligible based on patient's age to complete this topicHib vaccineAged OutNo longer eligible based on patient's age to complete this topicMeningococcal (ACWY) vaccineAged OutNo longer eligible based on patient's age to complete this topic Meningococcal B vaccineAged OutNo longer eligible based on patient's age to complete this topicPneumococcal 0-49 years VaccineAged OutNo longer eligible based on patient's age to complete this topicPolio vaccineAged OutNo longer eligible based on patient's age to complete this topic Insurance Care Teams Team MemberRelationshipSpecialtyStart DateEnd Date Emery Flood DO [address] [place] [address] [facility]09/29/23
--- OUTSIDE RECORDS SUMMARY | 2025-02-18 13:46 | XMS_ITS | CCD ---
Author Organization [facility] Care Team Providers Care Metal Loader Name Role Phone Community, Outreach Attending Provider [...] Admitting Unavaila ble Anthony Flood Consulting Unavailable BulpittAnthony Consulting Unavailable BulpittAnthony tristan Consulting Unavailable Anthony Flood Consulting Unavailable Anthony Flood Consulting Unavailable Anthony Flood Consulting Unavailable Anthony Flood Consulting Unavailable BulpittAntohny Consulting Unavailable BulpittAnthony Consulting Unavailable [facility], XXXX Consulting Unavailable Jenna BA Primary Care Physician [phone] Irasema Franco Unavailable Unavailable Kai Mcrae Admitting Unavailable BetaarielleorBenjamin Consulting Unavailable Moses Smith Attending Unavailable Benjamin Flores Consulting Unavailable Benjamin Flores Consulting Unavailable Anthony Flood Consulting Unavailable MD Anthony Flood Unavailable BulpittAnthony Consulting Unavailable BulpittAnthony Consulting Unavailable BulpittAnthony Consulting Unavailable BulpittAnthony Consulting Unavailable Bulpitt, Anthony Consulting Unavailable Bulpitt, Anthony Consulting Unavailable Bulpitt, Anthony Consulting Unavailable [facility]io, XXXX Consulting Unavailable MD Kai Mcrae Admitting Unavaila ble Jenna Ba DO Primary Care Provider JENNA BA Attending Unavailable JENNA BA Referring Unavailable JENNA BA Primary Care Unavailable Jenna Ba MD Primary Care Provider [phone] Jenna Ba MD Primary Care Provider [phone] SUNSHINE DING Attending Unavailable MARCOS LUCERO Attending Unavailable EMELI, WALTER Attending Unavailable CARIDAD, SUNSHINE Attending Unavailable MORRO DOTY Attending Unavailable CARIDAD, SUNSHINE Attending Unavailable EMELI, WALTER Attending Unavailable CARIDAD, SUNSHINE Attending Unavailable CARIDAD, SUNSHINE Referring Unavailable Problems Active Problems Problem ClassificationProblemDateDocumented DateEpisodic/ChronicCardiac dysrhythmias (2 sources)Palpitations; Translations: [Palpitations]Onset: EpisodicDiseases of white blood cells (1 source)Leukocytosis; Translations: [Elevated white blood cell count, unspecified]Onset: 87-80-7790LpzjzzoLhkztsvdtzxbd and screening for infectious disease (3 sources)Encounter for screening for human papillomavirus (HPV); Translations: [Patient encounter status]Onset: 336839-75-6037JlpbkbtfKexdgsrvf disorders (20 sources)Irregular menstruation, unspecified; Translations: [Missed period] Onset: 020431-05-5337HnjxmcbLsvallu (2 sources)Mycosis; Translations: [Candidiasis, unspecified]15-46-4247Agyismqc Nonspecific chest pain (1 source)Chest wall pain; Translations: [Other chest pain]09-61-1179Pfbdrcka Other and unspecified benign neoplasm (1 source)Melanocytic nevus of left upper limb; Translations: [Melanocytic nevi of left upper limb, includingshoulder]21-18-0973TjaahbgvVwcqm and unspecified benign neoplasm (1 source)Melanocytic nevus; Translations: [Melanocytic nevi, unspecified] 57-28-1010TpemljbsUzhvv circulatory disease (1 source)Low blood pressure; Translations: [Hypotension, unspecified]Onset: 01-82-7450SgstycfuMdgcp circulatory disease (1 source)Postural orthostatic tachycardia syndrome ; Translations: [Postural orthostatic tachycardia syndrome [POTS]]Onset: 70-73-0898TeolyckzRmhus circulatory disease (1 source)Orthostatic hypotension; Translations: [Orthostatic hypotension]Onset: 45-55-3768GrwmkcimYnzuu endocrine disorders (4 sources)Polycystic ovarian syndrome; Translations: [POLYCYSTIC OVARIAN SYNDROME]Onset: 85-01-2219EisdbtcCeyho inflammatory condition of skin (2 sources)Pruritus, unspecified; Translations: [Unspecified pruritic disorder] 56-23-6264TvfjbnghJrnuu nutritional; endocrine; and metabolic disorders (1 source)Body mass index 30+ - xvfcefs56-82-4645HuizapnMsnkf nutritional; endocrine; and metabolic disorders (1 source)Simple addedxw79-19-3588NnjysokAdvgy nutritional; endocrine; and metabolic disorders (1 source)Obesity; Translations: [Obesity, unspecified]Onset: 08-18-2020 42-66-4797BytkfpoCmogz and delivery including normal (20 sources); Translations: [Encounter for supervision of normal , unspecified, unspecified trimester]Onset: EpisodicOther screening for suspected conditions (not mental disorders or infectious disease) (10 sources)Encounter for screening for malignant neoplasm of cervix; Translations: [Alpha-fetoprotein blood test status]Onset: 51-36-0976Lktcqcqw Residual codes; unclassified (1 source)Gestation period, 6 weeks; Translations: [Less than 8 weeks gestation of ]07-53-0835XbxxkarpWbuyvlas codes; unclassified (2 sources)Gestation period, 11 weeks; Translations: [11 weeks gestation of ]53-17-0120FlmoglloFnfoecdb codes; unclassified (2 sources)Gestation period, 14 weeks; Translations: [14 weeks gestation of ]66-59-4162FbgolnexXfhvkqpf codes; unclassified (2 sources)Gestation period, 15 weeks; Translations: [15 weeks gestation of ]91-76-7645GbusjjjxLdusuryl codes; unclassified (2 sources)Gestation period, 20 weeks; Translations: [20 weeks gestation of ]20-19-7240KhtvmwjnMbfzfxcs codes; unclassified (2 sources)Gestation period, 24 weeks; Translations: [24 weeks gestation of ]77-67-4570GfgtcpfpPwbzrzxe codes; unclassified (2 sources)Gestation period, 27 weeks; Translations: [27 weeks gestation of ]52-22-0466EkkntcynMpsgtbflmaju (1 source)Patient encounter yyrhhc61-47-9056 Past or Other Problems Problem ClassificationProblemDateDocumented DateEpisodic/ChronicAbdominal pain (3 sources)Abdominal pain; Translations: [Unspecified abdominal pain]Onset: 08-18-2020 Resolved: 48-69-0971DzeesuigUwhdd valve disorders (2 sources)Systolic murmur; Translations: [Cardiac murmur, unspecified]Onset: 974187-55-8345LzovnybhZxfzy gastrointestinal disorders (2 sources)Burping; Translations: [Eructation]Onset: 08-18-2020 Resolved: 031685-08-0833SszanfdgCxjgztb (20 sources)Syncope and collapse; Translations: [Syncope and collapse]Onset: 59-83-5306Fytjprzo Results Test NameValueInterpretationReference RangeFacilityUrinalysis macro (dipstick) panel (U)on 30-92-8859Jnshrnqzv, UANegativeNegative - 4(70) +++ mg/dLNOMS HealthcareBlood, UANegativeNegative [...] mg/dLNOMS HealthcareNOMS HealthcareUrinalysis macro (dipstick) panel (U)on 31-64-9741Vkflkijmu, UA NegativeNegative - 4(70) +++ mg/dLNOMS HealthcareBlood, [...] HealthcareNOMS HealthcareUS OB 14+ WEEKS ANATOMY SCANon 74-57-6000ZM OB 14+ WEEKS ANATOMY SCANFINDINGS: A single, [...] Delivery: 05/04/25 Gestational Age as of 11/13/2024: 27j6rYqyfuwogjy macro (dipstick) panel (U)on 98-47-7555Mhyeovnom, UANegativeNegative - 4(70) +++ mg/dLNOMS HealthcareBlood, UANegativeNegative [...] HealthcareNOMS Healthcare Urinalysis macro (dipstick) panel (U)on 71-65-9526Hrqmqwhya, UANegativeNegative - 4(70) +++ mg/dLNOMS HealthcareBlood, UANegativeNegative [...] mg/dLNOMS HealthcareNOMS HealthcareUrinalysis macro (dipstick) panel (U)on 12-20-2369Pdscieinx, UANegativeNegative - 4(70) +++ mg/dL NOMS HealthcareBlood, UANegativeNegative - 50 Edin/mcLNOMS HealthcareClarity, UA ClearNOMS HealthcareColor, UAYellowNOMS HealthcareGlucose, UANegativeNegative - 1999(110) ++++ mg/dLNOMS HealthcareInterpretation and review of laboratory resultsNormalNOMS HealthcareKetones, UANegativeNegative - 160(16) ++++ mg/dLNOMS HealthcareLeukocytes, UANegativeNegative - 500+++ Tiffany/mcLNOMS HealthcareNitrite, UANegativeNegative - PositiveNOMS HealthcarepH, UA85 - 9NOMS HealthcareProtein, UANegativeNegative - 2000(20) ++++ mg/dLNOMD HealthcareSpec Grav, UA1.011 - 1.03 NOMS HealthcareUrobilinogen, UA0.20.2 - 12 mg/dLNOCenterPointe Hospital Healthcare ALL CBC WITH AUTO DIFFon 32-71-5924XYIJQFAHG ABSOLUTE AUTO0.1NOMS Healthcare Basophils/100 WBC (Bld)0.5 %0.2 - 2.0 %NOMS HealthcareEosinophils/100 WBC (Bld) 1.3 %0.9 - 7.0 %[facility] Fischel Cancer CenterErythrocyte distribution width (RBC) [Ratio]11.9 %11.0 - 15.0 %[facility] Cancer CenterHematocrit (Bld) [Volume fraction]38.6 %36.0 - 48.0 %[facility] Cancer CenterHemoglobin (Bld) [Mass/Vol]12.9 g/dL12.0 - 16.0 g/dLEllis Fischel Cancer CenterIMMATURE GRANULOCYTES ABS AUTO0.03NOTwo Rivers Psychiatric HospitalImmature granulocytes/100 WBC (Bld)0.2 %0.0 - 0.5 %[facility] Cancer CenterInterpretation and review of laboratory resultsAbnormalEllis Fischel Cancer CenterLYMPHOCYTES ABSOLUTE AUTO2.9 NOMColumbia Regional HospitalLymphocytes/100 WBC (Bld)23.1 %20.5 - 60.0 %[facility] LouisH (RBC) [Entitic mass]31.4 pg26.7 - 34.[address]HC (RBC) [Mass/Vol] 33.4 g/dL29.9 - 35.2 g/[address]LTenet [address] LouisV (RBC) [Entitic vol]93.9 fL81.0 - 99.0 fLEllis Fischel Cancer CenterMONOCYTES ABSOLUTE AUTO0.8NOMD HealthcareMonocytes/100 WBC (Bld)6.5 %1.7 - 12.0 %[facility] Cancer CenterNEUTROPHILS ABSOLUTE AUTO8.7HighEllis Fischel Cancer CenterNeutrophils/100 WBC (Bld)68.4 %43.0 - 75.0 %[facility] Cancer CenterPlatelet mean volume (Bld) [Entitic vol]9.9 fL9.5 - 13.5 fLEllis Fischel Cancer CenterTBH EO #0.2NOMS HealthcareTB GHF729ZCWL HealthcareTB RBC4.11LowNOMS HealthcareTB WBC12.7High NOMS HealthcareCLINISYNCNOMS HealthcareHCG ( test) Ql (U)on 09-14-2024 Interpretation and review of laboratory resultsAbnormalNOMS HealthcarePreg Test, UrPositiveNegativeNOMS HealthcareNOMD HealthcareUS OB TRANSVAGINALon 09-14-2024 [place] [address] Ultrasound Report Signed Patient: JYOTI TORRES MR#: [id number] : 2000 Acct:[id number] Age/Sex: 23 / F ADM Date: 09/14/24 Loc: US Attending Dr: Morro Doty D.O. Ordering Physician: Morro Doty D.O. Date of Service: 09/14/24 Procedure(s): US OB transvaginal Accession Number(s): [id number] cc: Morro Doty D.O.; JENNA BA [place] [address] Patient Name: JYOTI TORRES MRN: [id number] date: 2000 Sex: F Assigned Patient Location: Current Patient Location: US Accession/Order Number: [id number] Exam Date: 09/14/2024 11:08 Report Date: 09/14/2024 [...] Sherwood M.D. 09/14/2024 11:11 AM Dictation Location: [place] [address] Electronically authenticated by: [id number] Y Date: 09/14/2024 11:11 Dictated By: Анна Sherwood M.D. Signed By: 09/14/24 1114 DD/ 1111 TD/TT: Jail Manager:ROCIOHRadiology, Radiologist, - 09/14/2024 [place] [address] Ultrasound Report Signed Patient: JYOTI TORRES MR#: [id number] : 2000 Acct:[id number] Age/Sex: 23 / F ADM Date: 09/14/24 Loc: US Attending Dr: Morro Doty D.O. Ordering Physician: Morro Doty D.O. Date of Service: 09/14/24 Procedure(s): US OB transvaginal Accession Number(s): [id number] cc: Morro Doty D.O.; JENNA BA [place] [id number] Patient Name: JYOTI TORRES MRN: [id number] date: 2000 Sex: F Assigned Patient Location: US Current Patient Location: US Accession/Order Number: [id number] Exam Date: 09/14/2024 11:08 Report Date: 09/14/2024 [...] Sherwood M.D. 09/14/2024 11:11 AM Dictation Location: [place] [address] Electronically authenticated by: [id number] Y Date: 09/14/2024 11:11 Dictated By: Анна Sherwood M.D. Signed By: 09/14/24 1114 DD/ 1111 TD/TT: Jail Manager: [facility]l Cancer CenterRadiology Study observation (narrative)[facility] Cancer CenterUS OB TRANSVAGINALOrdered By: Radiologist Radiology on 35-14-1135FLNO [employer] Work Phone: US OB TRANSVAGINALon [phone] OB TRANSVAGINALEXAM: US OB TRANSVAGINAL HISTORY: Dating. [...] II, MD, PHD at 31-Aug-2024 12:18:24 PM [facility] TeleradiologyNormalNot AvailableComment on above:Order Comment: US OB TRANSVAGINAL No LMP recorded (within months).RECURRENT VAGINITIS (HTRX)on 73-99-3710GYAAGLNGV MUJELXT4JZRU HealthcareATOPOBIUM VAGINAENot detectedNOMS HealthcareBVAB 2,3 (BACTERIAL VAGINOSIS ASSOCIATED BACTERIA 2, 3); MOBILUNCUS LBB8HUJG Healthcare BVAB 2,3 (BACTERIAL VAGINOSIS ASSOCIATED BACTERIA 2, 3); MOBILUNCUS SPPNot detectedNOMS HealthcareCANDIDA ALBICANS, PARAPSILOSIS, TMSZTJTTVV64.742Abnormal NOMS HealthcareCANDIDA ALBICANS, PARAPSILOSIS, TROPICALISDetectedAbnormalNOMS HealthcareCANDIDA DUNDRXED3CPWS HealthcareCANDIDA GLABRATANot detectedNOMS HealthcareCANDIDA YKDDHB3XMXZ HealthcareCANDIDA KRUSEINot detectedNOMS HealthcareCHLAMYDIA CJKSTUSNNHC9PTGL HealthcareCHLAMYDIA TRACHOMATISNot detected NOMS HealthcareGARDNERELLA BHYIFYQCD1DQRC HealthcareGARDNERELLA VAGINALISNot detectedNOMS HealthcareInterpretation and review of laboratory resultsAbnormal NOMS HealthcareMEGASPHAERA (TYPES 1, 2)0NOMS HealthcareMEGASPHAERA (TYPES 1, 2) Not detectedNOMS HealthcareMYCOPLASMA NNAHSXENDP9FMXG HealthcareMYCOPLASMA GENITALIUMNot detectedNOMS HealthcareNEISSERIA TWIHALIBBPM8CSYS Healthcare NEISSERIA GONORRHOEAENot detectedNOMS HealthcareTRICHOMONAS TXCCTFFOQ9HROD HealthcareTRICHOMONAS VAGINALISNot detectedNOMS HealthcareNOMS HealthcareHCG ( test) Ql (U)on 38-92-2441Wommvldjreplck and review of laboratory resultsAbnormalNOMS HealthcarePreg Test, UrPositiveNegativeNOMS HealthcareNOMS HealthcareTBH PREG QUANT HCGon 87-54-8649UDN VETDFMIGGLTF698fNT/mLNOMS HealthcareComment on above:5-50 0.2-1 WEEK 50-500 1-2 WEEKS 100-5,000 2-3 WEEKS 500-10,000 3-4 WEEKS 1,000-50,000 4-5 WEEKS 10,000-100,000 5-6 WEEKS 15,000-200,000 6-8 WEEKS 10,000-100,000 2-3 MONTHS CLINISYNCNOMS HealthcareCortisolon 85-89-8162Uhxfnhoi [Mass/Vol]11.0 microgram/dLInvalid Interpretation Code6.2-19.4FMain Campus Medical Center Comment on above:Result Comment: Please Note: The reference interval and flagging for this test is for an AM collection. If this is a PM collection please use: Cortisol PM: 2.3-11.9 Performed at: [facility] [id number] PhD Gilles Morrisformed By: #### [id number] #### [facility] [address], [place] [address]CVPiq 69-85-9627Xdnyg gap [Moles/Vol]8 mmol/LNormal6-16[facility] HospitalComment on above:Performed By: #### [id number] #### [facility] [address], [place] [address]Citlvag [Mass/Vol]8.3 mg/dLLow8.9-11.1FMain Campus Medical CenterComment on above:Performed By: #### [id number] #### [facility] [address], [place] [address]Aeizeeoh [Moles/Vol]109 mmol/LLndqzz197-593HidfjePromedica Toledo HospitalComment on above:Performed By: #### [id number] #### [facility] [address], [place] [address]EJ1 [Moles/Vol]27 mmol/GCzmqqw07-40BmjstkPromedica Toledo Hospital Comment on above:Performed By: #### [id number] #### [facility] [address], [place] [address]Lziyzumtek [Mass/Vol]0.5 mg/dLNormal0.5-1.3FMain Campus Medical CenterComment on above:Performed By: #### [id number] #### [facility] [address], [place] [address]Ywnxrgc [Mass/Vol]104 mg/iDDyoxqo52-112DqkmnqPromedica Toledo HospitalComment on above:Performed By: #### [id number] #### [facility] [address], [place] [address]Uurbexnbh [Moles/Vol]4.0 mmol/LNormal3.5-5.3FMain Campus Medical CenterComment on above:Performed By: #### [id number] #### [facility] [address] [place] [address]Moehwr [Moles/Vol]140 mmol/XBsdagh429-460ScdrbhPromedica Toledo HospitalComment on above:Performed By: #### [id number] #### [facility] [address] [place] [address]Pdxh nitrogen [Mass/Vol]10 mg/dLNormal5-21Prom[facility] HospitalComment on above:Performed By: #### [id number] #### [facility] [address] [place] [address]Gltz nitrogen/Creatinine [Mass ratio]20 No BnfviNzrfso46-83 [facility] HospitalComment on above:Performed By: #### [id number] #### [facility] [address] [place] [address]LIY w/ Auto Diffon 55-94-1232Bdvklwumv/100 WBC (Bld)0.8 %Normal 0.0-2.0[facility] HospitalComment on above:Performed By: #### [id number] #### [facility] [address] [place] [address]Suiebghao/Leukocytes Auto (Bld) [Pure # fraction]0.1 E9/LNormal 0.0-0.2FMain Campus Medical CenterComment on above:Performed By: #### [id number] #### [facility] [address] [place] [address]Innwbbnvtxu (Bld) [#/Vol]0.2 E9/LNormal0.0-0.5FMain Campus Medical CenterComment on above:Performed By: #### [id number] #### [facility] [address], [place] [address]Dapsfmyzipi/100 WBC (Bld)3.6 %Normal0.0-8.0[facility] HospitalComment on above:Performed By: #### [id number] #### [facility] [address], [place] [address]Xmkjbivrfap distribution width (RBC) [Ratio]12.6 %Normal 10.9-14.2FMain Campus Medical CenterComment on above:Performed By: #### [id number] #### [facility] [address] [place] [address]Ymqrnckkiy (Bld) [Volume fraction]35.7 %Hjblse19.0-46.0[facility] HospitalComment on above:Performed By: #### [id number] #### [facility] [address], [place] [address]Uepuoqcegv (Bld) [Mass/Vol]12.6 g/rALmzylh24.0-16.0[facility] HospitalComment on above:Performed By: #### [id number] #### [facility] [address], [place] [address]Qjyvrsjzyaa (Bld) [#/Vol]2.1 E9/LNormal1.0-4.0[facility] HospitalComment on above:Performed By: #### [id number] #### [facility] [address], [place] [address]Glhprxkgoce/100 WBC (Bld)30.7 %Ozdvld60.0-50.0[facility] HospitalComment on above:Performed By: #### [id number] #### [facility] [address], [place] [address]RSN (RBC) [Entitic mass]32.9 nzTkzest66.0-34.0[facility] HospitalComment on above:Performed By: #### [id number] #### [facility] [address] [place] [address]BSAW (RBC) [Mass/Vol]35.3 g/wQWzmorf57.4-36.0[facility] HospitalComment on above:Performed By: #### [id number] #### [facility] [address] [place] [address]NDZ (RBC) [Entitic vol]93.4 tJRznxue81.0-100.0[facility] HospitalComment on above:Performed By: #### [id number] #### [facility] [address] [place] [address]Dxxvzkslc (Bld) [#/Vol]0.6 E9/LNormal0.2-1.0[facility] HospitalComment on above:Performed By: #### [id number] #### [facility] [address] [place] [address]Gypnqavmpgd (Bld) [#/Vol]3.9 E9/LNormal2.0-7.5FMain Campus Medical CenterComment on above:Performed By: #### [id number] #### [facility] [address] [place] [address]Ydesteneknl/100 WBC (Bld)55.7 %Yjyzjt33.0-75.0[facility] HospitalComment on above:Performed By: #### [id number] #### [facility] [address] [place] [address]Xvubupvp224.0 E9/CLxlxmp827.0-500.0[facility] Comment on above:Performed By: #### [id number] #### [facility] [address] [place] [address]Nnflqeyw mean volume (Bld) [Entitic vol]7.8 fLNormal6.4-10.8 [facility] HospitalComment on above:Performed By: #### [id number] #### [facility] [address], [place] [address]GDI (Bld) [#/Vol]3.8 E12/LLow4.3-5.9[facility] Comment on above:Performed By: #### [id number] #### [facility] [address], [place] [address]PIB corrected for nucl RBC Auto (Bld) [#/Vol]7.0 E9/LNormal 4.0-11.0[facility] HospitalComment on above:Performed By: #### [id number] #### [facility] [address], [place] [address]TNPHEHNAEKbukbdz By: SYSTEM SYSTEM on 35-73-9168Wgdxc gap [Moles/Vol]8 mmol/LNormal6 - 16 mEq/LRemisol ChemCalcium [Mass/Vol]8.3 mg/dLLow 8.9 - 11.1 mg/dLRemisol ChemChloride [Moles/Vol]109 mmol/RCpwmbl536 - 111 mmol/L Remisol ChemCO2 [Moles/Vol]27 mmol/HPzpmlk50 - 31 mmol/LRemisol ChemCreatinine [Mass/Vol]0.5 mg/dLNormal0.5 - 1.3 mg/dLRemisol FtaabFHE917 mL/min/1.73 h2Vipmtq >=59mL/min/1.73 z5Djnixbo ChemGlucose [Mass/Vol]104 mg/lCGhsstr14 - 199 mg/dL Remisol ChemPotassium [Moles/Vol]4.0 mmol/LNormal3.5 - 5.3 mmol/LRemisol Chem Sodium [Moles/Vol]140 mmol/ANplegt729 - 145 mmol/LRemisol ChemTSH Qn5.22 m[IU]/L Normal0.34 - 5.60 mcIU/mLRemisol ChemUrea nitrogen [Mass/Vol]10 mg/dLNormal5 - 21 mg/dLRemisol ChemUrea nitrogen/Creatinine [Mass ratio]20 mg/omBaufrh80 - 20 Remisol ChemDischarge Note-Nursingon 68-27-7697Rgfjnztvu Note-NursingDischarge Note-Nursing JYOTI TORRES :2000 Visit Date:03/12/2024 Inpatient Discharge Instructions Your Care Team Admitting Physician - Thor RIZVI, Kai Lagos Consulting Physician - Remigio RIZVI, Benjamin Ruiz MD [facility] Cardio, XXXX Reason for Your Visit abdomenal [...] with a neurologist as well as a shipping team leader. New Follow Up Appointments after Discharge Follow Up with Remigio RIZVI, KYLAH Esteves When: 03/28/2024 01:40 PM EST Comments: Will being Hue Bentley [employer] SET UP TECHNICIAN at this appointment. [facility] [place] [address]- Follow Up with Jenna BA When: 03/15/2024 09:45 AM EST Where: [address] [facility] [place] [phone] [facility] (1) Follow Up with Mark RIZVI, IRIS [...] down and after you (more content not included)...[facility] SystemHEMATOLOGYOrdered By: SYSTEM SYSTEM on 37-62-7065Jolxuxofc/100 WBC (Bld)0.8 %Normal0.0 - 2.0 %Remisol Heme Basophils/Leukocytes Auto (Bld) [Pure # fraction]0.1 E9/LNormal0.0 - 0.2 E9/L Remisol HemeEosinophils (Bld) [#/Vol]0.2 E9/LNormal0.0 - 0.5 E9/LRemisol Heme Eosinophils/100 WBC (Bld)3.6 %Normal0.0 - 8.0 %Remisol HemeErythrocyte distribution width (RBC) [Ratio]12.6 %Bijxxq01.9 - 14.2 %Remisol HemeHematocrit (Bld) [Volume fraction]35.7 %Bdbfqm37.0 - 46.0 %Remisol HemeHemoglobin (Bld) [Mass/Vol]12.6 g/pOOcddqk36.0 - 16.0 gm/dLRemisol HemeLymphocytes (Bld) [#/Vol] 2.1 E9/LNormal1.0 - 4.0 E9/LRemisol HemeLymphocytes/100 WBC (Bld)30.7 %Normal 14.0 - 50.0 %Remisol HemeMCH (RBC) [Entitic mass]32.9 raGbizoj65.0 - 34.0 pg Remisol HemeMCHC (RBC) [Mass/Vol]35.3 g/jNAnaxxp12.4 - 36.0 gm/dLRemisol HemeMCV (RBC) [Entitic vol]93.4 kLLvsrkj31.0 - 100.0 fLRemisol HemeMonocytes (Bld) [#/Vol]0.6 E9/LNormal0.2 - 1.0 E9/LRemisol HemeMonocytes/100 WBC (Bld)9.2 % Normal4.0 - 14.0 %Remisol HemeNeutrophils (Bld) [#/Vol]3.9 E9/LNormal2.0 - 7.5 E9/LRemisol HemeNeutrophils/100 WBC (Bld)55.7 %Ctzdyi89.0 - 75.0 %Remisol Heme Wxkifgzi388.0 E9/RHjzcsu573.0 - 500.0 E9/LRemisol HemePlatelet mean volume (Bld) [Entitic vol]7.8 fLNormal6.4 - 10.8 fLRemisol HemeRBC (Bld) [#/Vol]3.8 E12/LLow 4.3 - 5.9 E12/LRemisol HemeWBC corrected for nucl RBC Auto (Bld) [#/Vol]7.0 E9/L Normal4.0 - 11.0 E9/LRemisol HemeInpatient Clinical Summaryon 03-13-2024 Inpatient Clinical SummaryInpatient Clinical Summary [address] [address] Clinical Summary Person Information: Name: JYOTI TORRES Age: 23 Years : 2000 Sex: Female PCP: Jenna BA DO Marital Status: Race: White Ethnicity: Non- or Language: Yi Visit Id: Visit Reason: Abdominal pain; ABD PAIN /PASSED OUT Speciality: Acuity: Enc Type: Observation Med Service: Medical Arrival: 03/12/2024 05:43:15 Discharge: Dispo Type: Admitted as IP to this Hosp Address: [address] [place], [place] [id number] Provider Notes: Diagnosis: 1:Syncope; 2:Postural orthostatic tachycardia [...] Physician: Benjamin Flores MD; Anthony Flood MD; [facility] Cardio, XXXX Referring Physician: Follow up: With: Address: When: Jenna BA [address] [facility] [place] [phone] [facility] (1) 03/15/2024 9:45 AM With: Address: When: Anthony Flood MD, [place] [address] [place] [address] 03/28/2024 1:40 PM Comments: Will being Hue Bentley NP at this appointment. With: Address: When: Benjamin Flores MD, IRIS Within 2 to 4 weeks Comments: Call for followup appointment Patient Education Information: Postural Orthostatic Tachycardia Syndrome; Orthostatic Hypotension; Near- Syncope, Byum-uv-QxiaEahmjjHoawcf [facility] Shock Trauma CenterInpatient Patient Summary on 20-40-8887Kjaghfdyw Patient SummaryInpatient Patient Summary [address] [address] Patient Discharge Instructions PERSON INFORMATION Name: JYOTI TORRES Date of : 2000 Current Date: 03/13/2024 12:34:22 PHYSICIANS Admitting Physician: Thor RIZVI, Kai Lagos Primary Care Physician: Jenna BA DO PCP Phone Number: [id number] Comment: Discharge Diagnosis: 1:Syncope; 2:Postural orthostatic tachycardia [...] with a neurologist as well as a shipping team leader. Primary Care Physician to provide the following pending test results: None Follow up: With: Address: When: Jenna BA [address] [facility] [place] [address] [phone] [facility] (1) 03/15/2024 9:45 AM With: Address: When: Remigio RIZVI, KYLAH [facility] [address] [place] [address] 03/28/2024 1:40 PM Comments: Will [...] are associated with POTS. (more content not included)...[facility] Interdisciplinary Note - Case Manageron 41-28-7225Sjksgjtkkcpdyzvpt Note - Case ManagerInterdisciplinary Note - Night Cleaner CRM to room 327 Patient is awake, alert and oriented. Patient is from home with her spouse. He is her ride at [place]. He is present in room. Patient verified [...] white board updated. CRM following Dc date TBDNGreene Memorial HospitalComment on above:Result Comment: Electronically Signed By: Radha Trevino\.june\Date and Time Signed: 03/13/24 09:28 [facility] With T4fr Reflexon 47-79-1471XBF Qn5.22 m[IU]/LNormal0.34-5.60 [facility] HospitalComment on above:Performed By: #### [id number] #### [facility] [address], [place] [address]kZIGzq 72-53-4885cESA887 mL/min/1.73 p3Delyaa>=59Prom[facility] HospitalComment on above:Performed By: #### [id number] #### [facility] [address], [place] [address]GTSbg 30-91-2522Kwwhj gap [Moles/Vol]9 mmol/LNormal6-16[facility] HospitalComment on above:Performed By: #### [id number] #### [facility] [address], [place] [address]Xumxzlx [Mass/Vol]9.0 mg/dLNormal8.9-11.1FMain Campus Medical CenterComment on above:Performed By: #### [id number] #### [facility] [address], [place] [address]Ewbitogf [Moles/Vol]106 mmol/ECqzojw470-174LkixkxPromedica Toledo HospitalComment on above:Performed By: #### [id number] #### [facility] [address], [place] [address]KP3 [Moles/Vol]27 mmol/PJdiwpc26-11IuhjniPromedica Toledo Hospital Comment on above:Performed By: #### [id number] #### [facility] [address], [place] [address]Sghacsaetb [Mass/Vol]0.6 mg/dLNormal0.5-1.3FMain Campus Medical CenterComment on above:Performed By: #### [id number] #### [facility] [address], [place] [address]Vsunlvm [Mass/Vol]108 mg/qKEzxcki21-489JtwngaPromedica Toledo HospitalComment on above:Performed By: #### [id number] #### [facility] [address], [place] [address]Gjderqzhu [Moles/Vol]3.9 mmol/LNormal3.5-5.3FMain Campus Medical CenterComment on above:Performed By: #### [id number] #### [facility] [address], [place] [address]Dacxhe [Moles/Vol]138 mmol/VUvlgrf214-019YyhugvPromedica Toledo HospitalComment on above:Performed By: #### [id number] #### [facility] [address], [place] [address]Ojsm nitrogen [Mass/Vol]11 mg/dLNormal5-21[facility] HospitalComment on above:Performed By: #### [id number] #### [facility] [address], [place] [address]Eowr nitrogen/Creatinine [Mass ratio]18 No EfjfoKouzhl41-92 [facility] HospitalComment on above:Performed By: #### [id number] #### [facility] [address] [place] [address]RZT w/ Auto Diffon 64-45-0505Iuuemvvwk/100 WBC (Bld)0.2 %Normal 0.0-2.0[facility] HospitalComment on above:Performed By: #### [id number] #### [facility] [address] [place] [address]Cptccysxg/Leukocytes Auto (Bld) [Pure # fraction]0.0 E9/LNormal 0.0-0.2FMain Campus Medical CenterComment on above:Performed By: #### [id number] #### [facility] [address] [place] [address]Pszrzunshwy (Bld) [#/Vol]0.1 E9/LNormal0.0-0.5FMain Campus Medical CenterComment on above:Performed By: #### [id number] #### [facility] [address] [place] [address]Ctyfwofeykw/100 WBC (Bld)0.6 %Normal0.0-8.0[facility] HospitalComment on above:Performed By: #### [id number] #### [facility] [address], [place] [address]Sqawomififd distribution width (RBC) [Ratio]12.5 %Normal 10.9-14.2FMain Campus Medical CenterComment on above:Performed By: #### [id number] #### [facility] [address] [place] [address]Yedoejozfc (Bld) [Volume fraction]40.5 %Yrduue59.0-46.0[facility] HospitalComment on above:Performed By: #### [id number] #### [facility] [address] [place] [address]Ifyacmagjx (Bld) [Mass/Vol]13.7 g/hIPfxfls22.0-16.0[facility] HospitalComment on above:Performed By: #### [id number] #### [facility] [address] [place] [address]Sukpescxhbu (Bld) [#/Vol]1.7 E9/LNormal1.0-4.0[facility] HospitalComment on above:Performed By: #### [id number] #### [facility] [address] [place] [address] 74[address]Iydnbfvbvfj/100 WBC (Bld)10.6 %Low14.0-50.0[facility] HospitalComment on above:Performed By: #### [id number] #### [facility] [address] [place] [address] 15373FCB (RBC) [Entitic mass]31.4 ayHudkoe01.0-34.0[facility] HospitalComment on above:Performed By: #### [id number] #### [facility] [address] [place] [address]PJJY (RBC) [Mass/Vol]33.8 g/uTGmpbqw13.4-36.0[facility] HospitalComment on above:Performed By: #### [id number] #### [facility] [address] [place] [address] 999[address]BSD (RBC) [Entitic vol]92.9 pSIvlnhm58.0-100.0[facility] HospitalComment on above:Performed By: #### [id number] #### [facility] [address] [place] [address] 10[address]Agwhnwrvd (Bld) [#/Vol]0.9 E9/LNormal0.2-1.0[facility] HospitalComment on above:Performed By: #### [id number] #### [facility] [address] [place] [address]Quygrkxhdlr (Bld) [#/Vol]13.5 E9/LHigh2.0-7.5FMain Campus Medical CenterComment on above:Performed By: #### [id number] #### [facility] [address] [place] [address]Qdkaaaefbyt/100 WBC (Bld)82.9 %High36.0-75.0[facility] HospitalComment on above:Performed By: #### [id number] #### [facility] [address] [place] [address] 84[address]Twgqaxmy023.0 E9/FRxueyi669.0-500.0[facility] Comment on above:Performed By: #### [id number] #### [facility] [address] [place] [address]Axrakrox mean volume (Bld) [Entitic vol]7.6 fLNormal6.4-10.8 [facility] HospitalComment on above:Performed By: #### [id number] #### [facility] [address] [place] [address] 40[address]VBM (Bld) [#/Vol]4.4 E12/LNormal4.3-5.9[facility] HospitalComment on above:Performed By: #### [id number] #### [facility] [address] [place] [address] 69[address]BDN corrected for nucl RBC Auto (Bld) [#/Vol]16.3 E9/LHigh 4.0-11.0[facility] HospitalComment on above:Performed By: #### [id number] #### [facility] [address] [place], [place] [address]MPXIWCITSNjuufnc By: SYSTEM SYSTEM on 51-99-9795Qqyxlck [Mass/Vol]4.1 g/dLNormal3.3 - 5.0 gm/dLRemisol ChemAlbumin/Globulin [Mass ratio] 1.5 {ratio}Normal1.1 - 2.2Remisol ChemALP [Catalytic activity/Vol]38 [iU]/d Hfedyq10 - 98 Int._Unit/LRemisol ChemALT No additional P-5'-P [Catalytic activity/Vol]14 [iU]/dNormal6 - 46 Int._Unit/LRemisol ChemAnion gap [Moles/Vol]9 mmol/LNormal6 - 16 mEq/LRemisol ChemAST [Catalytic activity/Vol]16 [iU]/dNormal 5 - 43 Int._Unit/LRemisol ChemBilirubin [Mass/Vol]0.7 mg/dLNormal0.0 - 1.1 mg/dL Remisol ChemBilirubin.direct [Mass/Vol]0.1 mg/dLNormal0.0 - 0.4 mg/dLRemisol ChemBilirubin.indirect [Mass or moles/Vol]0.6 mg/dLNormal0.1 - 0.9 mg/dLRemisol ChemCalcium [Mass/Vol]9.0 mg/dLNormal8.9 - 11.1 mg/dLRemisol ChemChloride [Moles/Vol]106 mmol/TIxvwxh977 - 111 mmol/LRemisol ChemCO2 [Moles/Vol]27 mmol/L Csrswj36 - 31 mmol/LRemisol ChemCreatinine [Mass/Vol]0.6 mg/dLNormal0.5 - 1.3 mg/dLRemisol MubjmBNJ272 mL/min/1.73 h7Hvhsnm>=59mL/min/1.73 k6Igahsth Chem Globulin (S) [Mass/Vol]2.8 g/dLNormal1.4 - 4.0 gm/dLRemisol ChemGlucose [Mass/Vol]108 mg/lQHuinhd77 - 199 mg/dLRemisol ChemLipase [Catalytic activity/Vol]19 U/MJohdok07 - 58 unit/LRemisol ChemPotassium [Moles/Vol]3.9 mmol/LNormal3.5 - 5.3 mmol/LRemisol ChemProtein [Mass/Vol]6.9 g/dLNormal6.0 - 7.8 gm/dLRemisol ChemSodium [Moles/Vol]138 mmol/TAocrqc154 - 145 mmol/LRemisol ChemTroponin HSpg/mLLow10.10 - 27.10 pg/mLRemisol ChemComment on above: Interpretive Data: The 95% CI (Confidence Interval) PPV (Positive Predictive Value) for myocardial infarction in females is 38 pg/mL, in males 51 pg/mL. The results should be used in conjunction withclinical conditions of myocardial infarction. (Access High Sensitivity Troponin I Instructions For Use, Robin [place], November 2017)Urea nitrogen [Mass/Vol]11 mg/dLNormal5 - 21 mg/dLRemisol ChemUrea nitrogen/Creatinine [Mass ratio]18 mg/nyRkvcdv40 - 20Remisol ChemCT Abdomen/Pelvis w/ Contraston [id number] Abdomen/Pelvis w/ ContrastExam Date/Time: 03/12/2024 06:49 EST [...] amount in ml's: 100 Rectal Contrast Given? NoNormalMadison Health Clinical Summaryon [id number] Clinical SummaryED Clinical Summary [place] [address] ED Clinical Summary Person Information Name: JYOTI TORRES Madhu [facility] Age: 23 Years : 2000 Sex: Female Language: Yi PCP: Jenna BA DO Marital Status: Visit [...] 03/12/2024 12:07:26 Lab Request 03/12/2024 12:07:26 ADDRESS: [address] [place] [id number] PHYS DOC NOTES: Addendum by Earl Foote DO on March 12, 2024 10:27:34 EST MEDICAL INFORMATION: Prescriptions Given: Medications to Continue with No Changes Other Medications ethinyl estradiol-levonorgestrel (Balcoltra) By Mouth every day. PATIENT EDUCATION INFORMATION: Instructions: Follow up: DIAGNOSIS: 1:Syncope; 2:Postural orthostatic tachycardia syndrome [POTS]; 3:Orthostatic syncope; 4:Abdominal pain, acute; 5:Hypotension; 6:LeukocytosisNormalFisher Galileo Medical CenterED Note-Physicianon [id number] Note-PhysicianED Note-Physician Basic Information Time Seen: Tuan [...] and Complexity of Problems Differential Diagnosis: [] [facility] Data External documents reviewed: [] My EKG [...] Lymph Auto: 10.6 % Low (03/12/24 06:09:00) [place] Auto: 5.7 % (03/12/24 06:09:00) Eos Auto: 0.6 % (03/12/24 06:09:00) Basophil Auto: 0.2 % (03/12/24 06:09:00) Neutro Absolute: 13.5 E9/L High (03/12/24 06:09:00) Lymph Absolute: 1.7 E9/L (03/12/24 06:09:00) [place] Absolute: 0.9 E9/L (03/12/24 06:09:00) Eos Absolute: 0.1 E9/L (03/12/24 06:09:00) Basophil Absolute: 0 E9/L (03/12/24 06:09:00) Gl (more content not included)...[facility] SystemComment on above:Result Comment: Electronically Signed [...] and Complexity of Problems Differential Diagnosis: [] [facility] Data External documents reviewed: [] My EKG [...] Lymph Auto: 10.6 % Low (03/12/24 06:09:00) [place] Auto: 5.7 % (03/12/24 06:09:00) Eos Auto: 0.6 % (03/12/24 06:09:00) Basophil Auto: 0.2 % (03/12/24 06:09:00) Neutro Absolute: 13.5 E9/L High (03/12/24 06:09:00) Lymph Absolute: 1.7 E9/L (03/12/24 06:09:00) [place] Absolute: 0.9 E9/L (03/12/24 06:09:00) Eos Absolute: 0.1 E9/L (03/12/24 06:09:00) Basophil Absolute: 0 E9/L (03/12/24 06:09:00) Gl (more content not included)...[facility] Health SystemComment on above:Result Comment: Electronically Signed By: Tuan Lovell DO\.br\Date and Time Signed: 03/12/24 06:46 ESTED Patient Education Noteon [id number] Patient Education NoteED Patient Education NoteNormOhioHealth ED Patient Summaryon [id number] Patient SummaryED Patient Summary [place] [address] Patient Discharge Instructions Person Information Name: JYOTI TORRES Age: 23 Years Arrival Date: 03/12/2024 05:43:15 Discharge Diagnosis: 1:Syncope; 2:Postural orthostatic tachycardia syndrome [POTS]; 3:Orthostatic syncope; 4:Abdominal pain, acute; 5:Hypotension; 6:Leukocytosis Primary Care Physician: Jenna BA DO Provider Information Primary Provider: Tuan Lovell DO Advanced Sales Administration Manager:None The exam and treatment you received in the Emergency Department were for an urgent problem and are not intended as complete care. It is important that you follow up with a doctor, nurse practitioner,or physician???s vet assistant for ongoing care. If your symptoms [...] opioids can be used to help relieve haaqsmpu-qo-ixyynl pain and are often prescribed following a [...] be struggling with addiction, tell your health rn progressive care unit and askfor guidance or call [facility]???S National He (more content not included)...[facility] Health SystemExtra Blueon 34-88-2396Xxxw Collected PlasmaYesInvalid Interpretation White HospitalComment on above:Performed By: #### [id number] #### [facility] [address], [place] [address]XEZXMSFMYCSvgtemn By: SYSTEM SYSTEM on 91-28-8465Jgtveqzhm/100 WBC (Bld)0.2 %Normal0.0 - 2.0 %Remisol HemeBasophils/Leukocytes Auto (Bld) [Pure # fraction]0.0 E9/LNormal0.0 - 0.2 E9/LRemisol HemeEosinophils (Bld) [#/Vol]0.1 E9/LNormal0.0 - 0.5 E9/LRemisol HemeEosinophils/100 WBC (Bld)0.6 %Normal0.0 - 8.0 %Remisol HemeErythrocyte distribution width (RBC) [Ratio]12.5 %Sppclc73.9 - 14.2 %Remisol HemeHematocrit (Bld) [Volume fraction]40.5 %Goknne90.0 - 46.0 % Remisol HemeHemoglobin (Bld) [Mass/Vol]13.7 g/tFKlubrd14.0 - 16.0 gm/dLRemisol HemeLymphocytes (Bld) [#/Vol]1.7 E9/LNormal1.0 - 4.0 E9/LRemisol Heme Lymphocytes/100 WBC (Bld)10.6 %Low14.0 - 50.0 %Remisol HemeMCH (RBC) [Entitic mass]31.4 adYwpwcq62.0 - 34.0 pgRemisol HemeMCHC (RBC) [Mass/Vol]33.8 g/dLNormal 31.4 - 36.0 gm/dLRemisol HemeMCV (RBC) [Entitic vol]92.9 aYHmmosx19.0 - 100.0 fL Remisol HemeMonocytes (Bld) [#/Vol]0.9 E9/LNormal0.2 - 1.0 E9/LRemisol Heme Monocytes/100 WBC (Bld)5.7 %Normal4.0 - 14.0 %Remisol HemeNeutrophils (Bld) [#/Vol]13.5 E9/LHigh2.0 - 7.5 E9/LRemisol HemeNeutrophils/100 WBC (Bld)82.9 % High36.0 - 75.0 %Remisol KowmKkqorxes639.0 E9/GLakprm471.0 - 500.0 E9/LRemisol HemePlatelet mean volume (Bld) [Entitic vol]7.6 fLNormal6.4 - 10.8 fLRemisol HemeRBC (Bld) [#/Vol]4.4 E12/LNormal4.3 - 5.9 E12/LRemisol HemeWBC corrected for nucl RBC Auto (Bld) [#/Vol]16.3 E9/LHigh4.0 - 11.0 E9/LRemisol HemeHep Func Panelon 13-59-2944Rhgaagd [Mass/Vol]4.1 g/dLNormal3.3-5.0[facility] HospitalComment on above:Performed By: #### [id number] #### [facility] [address] [place] [address] 36[address]Cloavnh/Globulin (S) [Mass conc ratio]1.5Idbuaw5.1-2.2FMain Campus Medical CenterComment on above:Performed By: #### [id number] #### [facility] [address] [place] [address] 33771HPW [Catalytic activity/Vol]38 Int._Unit/KUtoebp61-95AwftjvPromedica Toledo HospitalComment on above:Performed By: #### [id number] #### [facility] [address] [place] [address] 374[address]DMC No additional P-5'-P [Catalytic activity/Vol]14 Int._Unit/L Normal6-46Prom[facility] Toledo HospitalComment on above:Performed By: #### [id number] #### [facility] [address], [place] [address]LNH [Catalytic activity/Vol]16 Int._Unit/LNormal5-43[facility] HospitalComment on above:Performed By: #### [id number] #### [facility] [address] [place] [address] 086[address]Wtgfiotkj [Mass/Vol]0.7 mg/dLNormal0.0-1.1FMain Campus Medical CenterComment on above:Performed By: #### [id number] #### [facility] [address], [place] [address]Razgqwsfu.direct [Mass/Vol]0.1 mg/dLNormal0.0-0.4FMain Campus Medical CenterComment on above:Performed By: #### [id number] #### [facility] [address], [place] [address]Omwillovd.indirect [Mass or moles/Vol]0.6 mg/dLNormal0.1-0.9 [facility] HospitalComment on above:Performed By: #### [id number] #### [facility] [address] [place] [address] 338[address]Zkmrbeiz (S) [Mass/Vol]2.8 g/dLNormal1.4-4.0[facility] HospitalComment on above:Performed By: #### [id number] #### [facility] [address] [place] [address] 18093Kxwbtff [Mass/Vol]6.9 g/dLNormal6.0-7.8[facility] HospitalComment on above:Performed By: #### [id number] #### [facility] [address] [place] [address] 96[address]Urwseqiuaxadrybvo Note - Case Manageron 03-12-2024 Interdisciplinary Note - Case ManagerInterdisciplinary Note - Night Cleaner CRM to room 327 Patient is a new admission Nursing is doing her admit at this time. CRM will see patient on 03/13Normal [facility] HospitalComment on above:Result Comment: Electronically Signed By: Radha Trevino\.june\Date and Time Signed: 03/12/24 13:56 ESTLipase Levelon 62-52-0137Lnybpt [Catalytic activity/Vol]19 U/RJtvfjb07-80BcictwPromedica Toledo HospitalComment on above:Performed By: #### [id number] #### [facility] [address], [place] [address]QZMPXYPWRgwmqxm By: Leyla Mercer on 83-75-4280XWB.beta subunit (U) [Moles/Vol]NegativeNormalALLIANCEHEALTH [facility] – [facility] Man SeroTroponin 0 Hr.on 03-12-2024 Troponin HS<2.19Pny71.10-27.10Prom[facility]edo HospitalComment on above:Result Comment: The 95% CI (Confidence Interval) PPV (Positive Predictive Value) for myocardial infarction in females is 38 pg/mL, in males 51 pg/mL. The results should be used in conjunction with clinical conditions of myocardial infarction. (Access High Sensitivity Troponin I Instructions For Use, Robin Ibrah[place], November 2017)Performed By: #### [id number] #### [facility] [address] [place] [address] 484[address]B BetaHcg Qualon 71-29-2953KMP.beta subunit (U) [Moles/Vol] NegativeNormalPromedica Toledo HospitalComment on above:Performed By: #### [id number] #### [facility] [address] [place] [address] 215[address]KQ with Cult Rflxon 03-11-6388Kcrapznf Auto Ql (U)TraceNormal TracePromedica Toledo HospitalComment on above:Performed By: #### [id number] #### [facility] [address] [place] [address]Jkkxfhahk Ql (U)NegativeNormalNegativePromedica Toledo HospitalComment on above:Performed By: #### [id number] #### [facility] [address] [place] [address] 384[address]Jfjudor (U)ClearNormalClearPromedica Toledo HospitalComment on above:Performed By: #### [id number] #### [facility] [address] [place] [address]33[address]Cbcct (U)YellowNormalYellowPromedica Toledo HospitalComment on above:Result Comment: Microscopic readings are only performed on those samples that meet specific criteria set forth by [facility].Performed By: #### [id number] #### [facility] [address] [place] [address]67[address]Uygxiylvqf cells.squamous Auto (Urine sed) [#/Area]3-4Invalid Interpretation CodePromedica Toledo HospitalComment on above:Performed By: #### [id number] #### [facility] [address], [place] [address]Ntclsra Ql (U)NegativeNormalNegLima Memorial Hospital Comment on above:Performed By: #### [id number] #### [facility] [address], [place] [address]Hcmpowskfr Auto test strip (U) [Mass/Vol]NegativeNormalNegative [facility] HospitalComment on above:Performed By: #### [id number] #### [facility] [address], [place] [address]Lwisbji Auto test strip Ql (U)NegativeNormalNegativePromedica Toledo HospitalComment on above:Performed By: #### [id number] #### [facility] [address] [place] [address] 56851Mearkcprl esterase Auto test strip Ql (U)NegativeNormalNegative [facility] HospitalComment on above:Performed By: #### [id number] #### [facility] [address], [place] [address]Xqgtu Auto Ql (U)TraceNormalNegativePromedica Toledo Hospital Comment on above:Performed By: #### [id number] #### [facility] [address], [place] [address]Hqhpntm Auto test strip Ql (U)NegativeNormalNegativePromedica Toledo HospitalComment on above:Performed By: #### [id number] #### [facility] [address], [place] [address]qW (U)8.5 [pH]Invalid Interpretation Code5.0-9.0Prom[facility]edo HospitalComment on above:Performed By: #### [id number] #### [facility] [address], [place] [address]Edprvyr Ql (U)1+ mg/dLAbnormalNegLima Memorial HospitalComment on above:Performed By: #### [id number] #### [facility] [address], [place] [address]GRG Ql (U)7-4Pcbjvp8-5PftxwbMain Campus Medical CenterComment on above:Performed By: #### [id number] #### [facility] [address], [place] [address]Rwlpukmn gravity (U) [Rel density]1.017Invalid Interpretation Code1.005-1.030Prom[facility] Toledo HospitalComment on above:Performed By: #### [id number] #### [facility] [address], [place] [address]Mqjkrspteama (U) [Mass/Vol]NegativeNormalNegativePromedica Toledo HospitalComment on above:Performed By: #### [id number] #### [facility] [address] [place] [address] 47[address]BTX Auto (Urine sed) [#/Area]4-4Wnypye6-3YsyqvlMain Campus Medical CenterComment on above:Performed By: #### [id number] #### [facility] [address] [place] [address]Fjse of Urine collection methodClean CatchNormalPromedica Toledo HospitalComment on above:Performed By: #### [id number] #### [facility] [address] [place] [address] 069[address]KNGZIEOHBZSnljchm By: SYSTEM SYSTEM on 21-33-5333Qqtvbust Auto Ql (U)Trace /HPFNormalTrace/HPFALLIANCEHEALTH [facility] UA Auto SSBilirubin Ql (U)NegativeNormal Negativemg/dLALLIANCEHEALTH DURANT – [facility] UA Auto SSClarity (U)Clear (03/12/24 6:09 AM)NormalClearFSTILLWATER [facility] [place] UA Auto SSColor (U)Yellow 1 (03/12/24 6:09 AM)NormalYellowALLIANCEHEALTH DURANT – [facility] UA Auto SSComment on above:Interpretive Data: Microscopic readings are only performed on those samples that meet specific criteria set forth by [facility].Epithelial cells.squamous Auto (Urine sed) [#/Area]3-4 graded/HPFInvalid Interpretation CodeALLIANCEHEALTH DUR[facility] UA Auto SSGlucose Ql (U)NegativeNormalNegativemg/dLALLIANCEHEALTH [facility]UR[facility] UA Auto SS Hemoglobin Auto test strip (U) [Mass/Vol]NegativeNormalNegativemg/dLALLIANCEHEALTH [facility] UA Auto SSKetones Auto test strip Ql (U)NegativeNormalNegativemg/dLFT UA Auto SS Leukocyte esterase Auto test strip Ql (U)NegativeNormalNegativeLeu/uLALLIANCEHEALTH [facility] UA Auto SSMucus Auto Ql (U)Trace graded/LPFNormalNegativegraded/LPFFTMC UA Auto SS Nitrite Auto test strip Ql (U)NegativeNormalNegativemg/dLALLIANCEHEALTH [facility]UR[facility] UA Auto SSpH (U) 8.5 *NA* (03/12/24 6:09 AM)Invalid Interpretation Code5.0 - 9.0[facility]A Auto SSProtein Ql (U)1+ mg/dLInvalid Interpretation CodeNegativemg/dLALLIANCEHEALTH [facility]UR[facility] UA Auto SSRBC Ql (U)0-3 graded/HPFNormal0-3graded/HPFALLIANCEHEALTH [facility]UR[facility] UA Auto SSSpecific gravity (U) [Rel density] 1.017 *NA* (03/12/24 6:09 AM)Invalid Interpretation Code1.005 - 1.030[facility]A Auto SS Urobilinogen (U) [Mass/Vol]NegativeNormalNegativemg/dLALLIANCEHEALTH [facility] UA Auto SSWBC Auto (Urine sed) [#/Area]0-5 graded/HPFNormal0-5graded/HPFALLIANCEHEALTH [facility]UR[facility] UA Auto SSURINALYSIS Ordered By: Tuan Lovell on [id number] Spec DescClean Catch (03/12/24 6:09 AM)NormalALLIANCEHEALTH [facility]URANT – [facility] UA Auto SS us Pelvis Non-OB Completeon [id number] Pelvis Non-OB CompleteExam Date/Time: 03/12/2024 08:08 EST [...] JEREMIAH Technologist: CHELY Technical Comments Transabdominal Ultrasound PerformedNormOhioHealtheGFRon 54-18-4343uATH982 mL/min/1.73 i5Ctpjph>=59Promedica Toledo HospitalComment on above:Performed By: #### [id number] #### [facility] [address] [place], [place] [address]RVZ ACOG PANEL 2: 21 to 29on 06-03-2022..NormalThe The Bellevue HospitalComment on above:Performed By: #### [id number] #### [facility] [address] [address] [address] eVrnon Franco Gdln ACOG Mrrcodk26-79BttsmrGvqTriHealth McCullough-Hyde Memorial HospitalComment on above:Performed By: #### [id number] #### [facility] [address] [place] [address] Dr. Vernon MerinoDIAGNOSIS:CommentMemorial Health System Marietta [facility] Hospital on above: Result Comment: NEGATIVE FOR INTRAEPITHELIAL LESION OR MALIGNANCY.Performed By: #### [id number] #### [facility] [address] [place] [address] Dr. Vernon MerinoMethodology:CommentMemorial Health System Marietta [facility] Hospital on above: Result Comment: This liquid based ThinPrep(R) pap test was screened with the use of an image guided system.Performed By: #### [id number] #### [address] [address] Dr. Vernon MerinoNote:CommentMemorial Health System Marietta Memorial Hospital on above:Result Comment: The Pap smear is a screening test designed to aid in the detection of premalignant and malignant conditions of the uterine cervix. It is not a diagnostic procedure and should not be used as the sole means of detecting cervical cancer. Both false-positive and false-negative reports do occur. .Performed By: #### [id number] #### [address] [address] Dr. Vernon MerinoPerformed by:CommentMemorial Health System Marietta Memorial Hospital on above: Result Comment: Marciano Swann Exterminator Termite (ASCP)Performed By: #### [id number] #### [place] [address] Dr[address] Vernon MerinoReflex Criteria:[facility] on above:Result Comment: The HPV DNA reflex criteria were not met with this specimen result therefore, no HPV testing was performed. .Performed By: #### [id number] #### [facility] [address] [place] [address] Dr. Vernon MerinoSpecimen adequacy:CommentMemorial Health System [facility]etta [facility] Hospital on above:Result Comment: Satisfactory for evaluation. Endocervical and/or squamous metaplastic cells (endocervical component) are present.Performed By: #### [id number] #### [facility] [address] [place] [address] Dr. Vernon Lee SERUMon 17-06-9165Psmsvkcryxlihetpejtnir (DHEA)633 ng/dL Vqupyk85-842FqeShelby Memorial HospitalComment on above:Result Comment: Age 1 - 5 years 0 - 67 6 - 7 years 0 - 110 8 - 10 years 0 - 185 11 - 12 years 0 - 201 13 - 14 years 0 - 318 15 - 16 years 39 - 481 17 - 19 years 40 - 491 >19 years 31 - 701Performed By: #### DHEA. #### [facility] [address] [place] [address] Dr. Vernon Lee-SULFATEon 04-54-4394XGAY-Cvcuzvx579.0 ug/bPJedsns066.0-431.7 The The [facility] HospitalComment on above:Performed By: #### DHEASUL #### [facility] [address] [place] [address] Dr. Vernon MerinoFSHodeanna 76-30-0059ETJ0.7 mIU/mLNormalShelby Memorial HospitalComment on above:Result Comment: Adult Female: Follicular phase 3.5 - 12.5 Ovulation phase 4.7 - 21.5 Luteal phase 1.7 - 7.7 Postmenopausal 25.8 - 134.8Performed By: #### LBCFSH #### [facility] [address] [place] [address] Dr. Vernon MerinoLUTEINIZING HORMONE (LH)on 54-76-6116TN26.3 mIU/mLNormalShelby Memorial HospitalComment on above:Result Comment: Adult Female: Follicular phase 2.4 - 12.6 Ovulation phase 14.0 - 95.6 Luteal phase 1.0 - 11.4 Postmenopausal 7.7 - 58.5Performed By: #### LBCLH #### [facility] [address] [place] [address] Dr. Vernon MerinoPROLACTINon 02-66-3851Rjqksmeae68.8 ng/mLNormal4.8-23.3The [facility] HospitalComment on above:Performed By: #### PROLAC #### [facility] [address] [place] [address] Dr. Vernon MerinoCBC AUTO DIFFon 40-69-8450ZJMA #0.1 103/ulNormal0.0-0.1The The [facility] HospitalComment on above:Performed By: #### CBC ####[facility] Dxptn[address] [place], [place] [address]Dr.Demetriayo ChangBasophils/100 WBC (Bld)1.1 %Normal0.2-2.0The The [facility] HospitalComment on above:Performed By: #### CBC ####[facility] X[address]kgfkqgc[address] [place], [place] [address]Dr.Vernon ChangEO #0.1 103/ulNormal0.0-0.7The The [facility] HospitalComment on above:Performed By: #### CBC ####[facility] Bffibxoiuv[address] [place], [place] [address]Dr.Demetriayo ChangEosinophils/100 WBC (Bld)1.6 %Normal 0.9-7.0The The [facility] HospitalComment on above:Performed By: #### CBC ####[facility] Gyxheculam[address] [place], [place] [address]Dr.Demetriayo Merino Erythrocyte distribution width (RBC) [Ratio]12.1 %Nsxubu06.0-15.0The [facility] HospitalComschoolcraft memorial hospital on above:Performed By: #### CBC ####[facility] Hethjbaaxo[address] [place], [place] [address]Dr.Demetriayo WilberHematocrit (Bld) [Volume fraction]44.5 %Prrjrx98.0-48.0The The [facility] HospitalComment on above:Performed By: #### CBC ####[facility] Uffcwyhiiy[address] [place], [place] [address]Dr.Demetriayo ChangHemoglobin (Bld) [Mass/Vol]14.3 g/dL Quaqfe88.0-16.0The The [facility] HospitalComment on above:Performed By: #### CBC ####[facility] Ztyardjgvv[address] [place], [place] [address]Dr. Vernon ChangIG #0.01 10e3/ulNormal0.00-0.03The The [facility] HospitalComment on above: Performed By: #### CBC ####[facility] [address] [address]Dr.Vernon ChangIG %0.2 %Normal0.0-0.5The The [facility] HospitalComment on above:Performed By: #### CBC ####[facility] [address] [address]Dr.Vernon MerinoLYMPH #1.8 103/ulNormal1.2-3.8The The [facility] HospitalComment on above:Performed By: #### CBC ####[facility] Zdyfdiaeil[address] [place], [place] [address]Dr. Vernon MerinoLymphocytes/100 WBC (Bld)29.5 %Yhikyl82.5-60.0[facility] Comment on above:Performed By: #### CBC ####[facility] Ugfzjeyxcy[address] [place], [place] [address]Dr.Demetrialan WilberMANUAL DIFF REQNONormalThe [facility] HospitalComment on above:Performed By: #### CBC ####[facility] Bbbazkagfm[address] [place], [place] [address]Dr.Vernon MerinoH (RBC) [Entitic mass]30.6 cvDoteoa03.7-34.0The The [facility] HospitalComment on above: Performed By: #### CBC ####[facility] Bucqokwzin[address] [place], [place] [address]Dr.Vernon MerinoMCHC (RBC) [Mass/Vol]32.1 g/dLNormal 29.9-35.2The The [facility] HospitalComment on above:Performed By: #### CBC ####[facility] Qochmyakig[address] [place], [place] [address]Dr. Vernon MerinoMCV (RBC) [Entitic vol]95.3 lALtfvjv90.0-99.0The [facility] Comment on above:Performed By: #### CBC ####[facility] Nijksaeycm[address] [place], [place] [address]Dr.Vernon WilberMONO #0.5 103/ulNormal0.3-0.8 The The [facility] HospitalComment on above:Performed By: #### CBC ####[facility] [address] [address]Dr.Vernon Merino Monocytes/100 WBC (Bld)8.7 %Normal1.7-12.0The The [facility] HospitalComment on above: Performed By: #### CBC ####[facility] Jxpqvkreaj[address] [place], [place] [address]Dr.Vernon MerinoNEUT #3.6 103/ulNormal1.4-6.5The The [facility] HospitalComment on above:Performed By: #### CBC ####[facility] Zayqjtgbgo[address] [place], [place] [address]Dr.Vernon MerinoNeutrophils/100 WBC (Bld)58.9 %Lsdtpv09.0-75.0The The [facility] HospitalComment on above:Performed By: #### CBC ####[facility] Bxgyjfibfz[address] [place], [place] [address]Dr.Vernon MerinoPlatelet mean volume (Bld) [Entitic vol]9.9 fLNormal9.5-13.5 The [facility] HospitalComschoolcraft memorial hospital on above:Performed By: #### CBC ####[facility] Hdqcfjkwfq[address] [place], [place] [address]Dr.Vernon YgyfmESK799 103/bsHljckp939-829Bxh The [facility] HospitalComment on above:Performed By: #### CBC ####[facility] Fskovsobmk[address] [place], [place] [address]Dr. Vernon ChangRBC4.67 106/ulNormal4.20-5.40The The [facility] HospitalComment on above: Performed By: #### CBC ####[facility] Twgemsjlpr[address] [place], [place] [address]Dr.Vernon ChangWBC6.1 103/ulNormal4.0-11.0The [facility] HospitalComschoolcraft memorial hospital on above:Performed By: #### CBC ####[facility] Julxatoiea[address] [place], [place] [address]Dr.Vernon MerinoFREE T4on 88-07-4714Dzyg T4 [Mass/Vol]1.10 ng/dLNormal0.76-1.46The [facility] Comment on above:Performed By: #### FT4 #### [facility] [address] [place] [address] Dr. Vernon MerinoGLYCOHEMOGLOBIN A1Con 94-02-1112STR RECOMMENDATIONSEE BELOWNormal The The [facility]vue HospitalComment on above:Result Comment: ADA RECOMMENDED LIMIT 4.0 - 6.0 ADA THERAPEUTIC TARGET < 7.0 ACTION SUGGESTED > 7.0Performed By: #### A1C #### [facility] [address] [place] [address] Dr. Vernon MerinoGlucose [Mass/Vol]105 mg/dLNormalThe [facility] HospitalComment on above:Performed By: #### A1C #### [facility] [address] [place] [address] Dr. Vernon MerinoHbA1c (Bld) [Mass fraction]5.3 %Normal4.5-6.2The The [facility] HospitalComment on above:Performed By: #### A1C #### [facility] [address] [place] [address] Dr. Vernon MerinoTSHon 78-34-8701KTJ0.981 uIU/mLNormal0.358-3.740The The [facility] HospitalComment on above:Performed By: #### TSH #### [facility] [address] [place] [address] Dr. Vernon MerinoUS PELVIS AND TRANSVAGon 85-04-2938HL PELVIS AND TRANSVAG EXAMINATION: US PELVIS AND [...] Electronically authenticated by: ANTHONY AQUINO Date: 2022-05-12 11:17[facility] HospitalBody fluid albumin measurement (mass/volume)Ordered By: [facility] on 71-85-0851Rdpzoic (Body fld) [Mass/Vol]4.0 g/dL3.2-5.5 [facility] HospitalCB Without Differentialon 03-13-2022 Erythrocyte distribution width (RBC) [Ratio]12.9 %Jbsnah28.9-15.3FOhioHealth Pickerington Methodist HospitalComment on above:Performed By: #### OUTREACH CMP, OUTREACH LIPID, OUTREACH TSH, CBCNOOUTREACH #### [facility] [address] [place] [address] USAHematocrit (Bld) [Volume fraction]42.3 %Zkzlrj93.0-46.4 [facility] HospitalComment on above:Performed By: #### OUTREACH CMP, OUTREACH LIPID, OUTREACH TSH, CBCNOOUTREACH #### [facility] [address] [id number] USAHemoglobin (Bld) [Mass/Vol]14.1 g/eICmedbl04.8-15.4 [facility] HospitalComment on above:Performed By: #### OUTREACH CMP, OUTREACH LIPID, OUTREACH TSH, CBCNOOUTREACH #### [facility] [address] [place] [address] [facility] ([facility]) [Entitic mass]30.6 sgShnhuu60.7-34.3FOhioHealth Pickerington Methodist HospitalComment on above:Performed By: #### OUTREACH CMP, OUTREACH LIPID, OUTREACH TSH, CBCNOOUTREACH #### [facility] [address] [place] [address] [facility] (RBC) [Entitic vol]92.0 wUAzunyw17-573Wmjraecfq Regional Medical CenterComment on above:Performed By: #### OUTREACH CMP, OUTREACH LIPID, OUTREACH TSH, CBCNOOUTREACH #### [facility] [address] [place] [address] USAMean Corpuscular HGB Conc33.2 g/dNVaedxg93.0-35.0[facility] HospitalComment on above:Performed By: #### OUTREACH CMP, OUTREACH LIPID, OUTREACH TSH, CBCNOOUTREACH #### [facility] [address] [place] [address] USAPlatelet mean volume (Bld) [Entitic vol]8.6 fLNormal 6.3-10.7FOhioHealth Pickerington Methodist HospitalComment on above:Result Comment: PERFORMED BY: [place] [address] PATHOLOGIST [employer]PER[employer] YEN ESCOBAR M.D.Performed By: #### OUTREACH CMP, OUTREACH LIPID, OUTREACH TSH, CBCNOOUTREACH #### [place] [address] USAPlatelets (Bld) [#/Vol]283 10*3/wRQnvxhk601-500WazlrzqhqGrant HospitalComment on above:Performed By: #### OUTREACH CMP, OUTREACH LIPID, OUTREACH TSH, CBCNOOUTREACH #### [facility] [address] [place] [address] USARBC (Bld) [#/Vol]4.60 10*6/uLNormal3.60-5.00[facility] HospitalComment on above:Performed By: #### OUTREACH CMP, OUTREACH LIPID, OUTREACH TSH, CBCNOOUTREACH #### [facility] [address] [place] [address] USAWBC (Bld) [#/Vol]6.6 10*3/uLNormal3.8-11.6FOhioHealth Pickerington Methodist HospitalComment on above:Performed By: #### OUTREACH CMP, OUTREACH LIPID, OUTREACH TSH, CBCNOOUTREACH #### [facility] [address] [place] [address] USACMP Outreachon 47-17-0920Rftrekq [Mass/Vol]4.0 g/dLNormal 3.2-5.5FOhioHealth Pickerington Methodist HospitalComment on above:Performed By: #### OUTREACH CMP, OUTREACH LIPID, OUTREACH TSH, CBCNOOUTREACH #### [facility] [address] [place] [address] USAALP [Catalytic activity/Vol]42 U/DFswcwi57-03UhvgitzyiGrant HospitalComment on above:Performed By: #### OUTREACH CMP, OUTREACH LIPID, OUTREACH TSH, CBCNOOUTREACH #### [facility] [address] [place] [address] USAALT [Catalytic activity/Vol]21 U/XBmtshf22-61KkgdegdqeGrant HospitalComment on above:Performed By: #### OUTREACH CMP, OUTREACH LIPID, OUTREACH TSH, CBCNOOUTREACH #### [facility] [address] [place] [address] USAAnion gap [Moles/Vol]9.3 mmol/LNormal6.0-15.0[facility] HospitalComment on above:Performed By: #### OUTREACH CMP, OUTREACH LIPID, OUTREACH TSH, CBCNOOUTREACH #### [facility] [address] [place], [place] [id number] USAAST [Catalytic activity/Vol]22 U/QFsbqwe47-55FtknfsrnaGrant HospitalComment on above:Performed By: #### OUTREACH CMP, OUTREACH LIPID, OUTREACH TSH, CBCNOOUTREACH #### [facility] [address] [place] [address] USABilirubin [Mass/Vol]0.6 mg/dLNormal0.3-1.2FOhioHealth Pickerington Methodist HospitalComment on above:Performed By: #### OUTREACH CMP, OUTREACH LIPID, OUTREACH TSH, CBCNOOUTREACH #### [facility] [address] [place] [address] USACalcium [Mass/Vol]9.2 mg/dLNormal8.2-10.2FOhioHealth Pickerington Methodist HospitalComment on above:Performed By: #### OUTREACH CMP, OUTREACH LIPID, OUTREACH TSH, CBCNOOUTREACH #### [facility] [address] [place] [address] USAChloride [Moles/Vol]103 mmol/LKzvqll48-505UyfwpsnswGrant HospitalComment on above:Performed By: #### OUTREACH CMP, OUTREACH LIPID, OUTREACH TSH, CBCNOOUTREACH #### [facility] [address] [id number] USACO2 [Moles/Vol]27.8 mmol/FTbyzrc27.0-30.0Grant HospitalComment on above:Performed By: #### OUTREACH CMP, OUTREACH LIPID, OUTREACH TSH, CBCNOOUTREACH #### [facility] [address] [id number] USACreatinine [Mass/Vol]0.62 mg/dLNormal0.44-1.03Grant HospitalComment on above:Performed By: #### OUTREACH CMP, OUTREACH LIPID, OUTREACH TSH, CBCNOOUTREACH #### [facility] [address] [id number] USAEstimated GFR ( Sara> 60NormUC West Chester HospitalComment on above:Result Comment: GFR estimated reference range: According to KDOQI guidelines, <60 ml/min/1.73m2 is sufficient to diagnose a patient with chronic kidney disease.Performed By: #### OUTREACH CMP, OUTREACH LIPID, OUTREACH TSH, CBCNOOUTREACH #### [place] [id number] USAEstimated GFR (Non- Am> 60NormUC West Chester HospitalComment on above:Performed By: #### OUTREACH CMP, OUTREACH LIPID, OUTREACH TSH, CBCNOOUTREACH #### [facility] [address] [id number] USAGlucose [Mass/Vol]91 mg/nXFjcwzs93-770TxkpksfpcGrant HospitalComment on above:Result Comment: Random Glucose Reference Range is dependent on time and content of last meal. Glucose of more than 200 mg/dL in a nonstressed, ambulatory subject supports the diagnosis of Diabetes Mellitus. ADA recommended reference rangePerformed By: #### OUTREACH CMP, OUTREACH LIPID, OUTREACH TSH, CBCNOOUTREACH #### [facility] [address] [place] [address] USAPotassium [Moles/Vol]4.1 mmol/LNormal3.5-5.1FOhioHealth Pickerington Methodist HospitalComment on above:Performed By: #### OUTREACH CMP, OUTREACH LIPID, OUTREACH TSH, CBCNOOUTREACH #### [facility] [address] [place] [address] USAProtein [Mass/Vol]6.8 g/dLNormal6.1-7.9Grant HospitalComment on above:Performed By: #### OUTREACH CMP, OUTREACH LIPID, OUTREACH TSH, CBCNOOUTREACH #### [facility] [address] [place] [address] USASodium [Moles/Vol]136 mmol/VOygeap974-159SpcupyfzwGrant HospitalComment on above:Performed By: #### OUTREACH CMP, OUTREACH LIPID, OUTREACH TSH, CBCNOOUTREACH #### [facility] [address] [place] [address] USAUrea nitrogen [Mass/Vol]9 mg/dLNormal9-23Grant HospitalComment on above:Performed By: #### OUTREACH CMP, OUTREACH LIPID, OUTREACH TSH, CBCNOOUTREACH #### [facility] [address] [place] [address] USACholesterol [Mass/volume] in Serum or PlasmaOrdered By: [facility] on 92-63-4272Mzksgmhkemt [Mass/Vol]180 mg/wT976-258MirotmceqGrant HospitalComment on above:Chol less than 200 mg/dl low riskChol 201-239 mg/dl borderline riskChol 240 mg/dl and greater high riskCholesterol in LDL Calc [Mass/Vol]Ordered By: [facility] on 22-43-6597Ylzxetkpoxr in LDL [Mass/Vol]113 mg/dL0-100Grant HospitalComment on above: LDL ATP III CLASSIFICATIONLDL less than 100 mg/dL OptimalLDL 100-129 mg/dL Near or above lzujjagPVL024-820 mg/dL Borderline highLDL 160-189 mg/dL HighLDL greater than 189 mg/dL Very highCholesterol in VLDL Calc [Mass/Vol]Ordered By: [facility] on 94-03-5253Hzqsbdjjoru in VLDL [Mass/Vol]11 mg/dLGrant HospitalCreatinine and Glomerular filtration rate.predicted panel (S/P/Bld)Ordered By: [facility] on 31-76-4471Gglbkcwjlk [Mass/Vol]0.62 mg/dL0.44-1.03Grant HospitalErythrocyte distribution width Auto (RBC) [Ratio]Ordered By: [facility] on 19-77-7794Bklmjivisun distribution width (RBC) [Ratio]12.9 %11.9-15.3FOhioHealth Pickerington Methodist Hospital Estimated glomerular filtration rate (GFR) non- AmericanOrdered By: [facility] on 09-08-5517AQE/1.73 sq M.predicted among non-blacks MDRD (S/P/Bld) [Vol rate/Area]> 60 mL/MinGrant HospitalHematocrit Auto (Bld) [Volume fraction]Ordered By: [facility] on 03-13-2022 Hematocrit (Bld) [Volume fraction]42.3 %34.0-46.4FOhioHealth Pickerington Methodist HospitalHemoglobin [Mass/volume] in BloodOrdered By: [facility] on 88-43-5076Fauboyqyfe (Bld) [Mass/Vol]14.1 g/dL11.8-15.4FOhioHealth Pickerington Methodist HospitalLeukocytes [#/volume] corrected for nucleated erythrocytes in Blood by Automated counOrdered By: [facility] on 58-14-9490MFX corrected for nucl RBC Auto (Bld) [#/Vol]6.6 10*3/uL3.8-11.6FOhioHealth Pickerington Methodist HospitalLipid Profile Outreachon 96-49-7408Zjsanrahqdr [Mass/Vol]180 mg/dLNormal 140-200Grant HospitalComment on above:Result Comment: Chol less than 200 mg/dl low risk Chol 201-239 mg/dl borderline risk Chol 240 mg/dl and greater high riskPerformed By: #### OUTREACH CMP, OUTREACH LIPID, OUTREACH TSH, CBCNOOUTREACH #### [address] [address] USACholesterol in HDL [Mass/Vol]56 mg/hNAjigpg85-14DibuyezmsGrant HospitalComment on above:Result Comment: HDL CHOL ATP-III CLASSIFICATION Cardiovascular Risk HDL > or equal to 60 mg/dL LOW HDL < 40 mg/dL HIGHPerformed By: #### OUTREACH CMP, OUTREACH LIPID, OUTREACH TSH, CBCNOOUTREACH #### [facility] [address] [place] [address] USACholesterol.total/Cholesterol in HDL [Mass ratio]3.2 {ratio}Normal<5.0Grant HospitalComment on above:Performed By: #### OUTREACH CMP, OUTREACH LIPID, OUTREACH TSH, CBCNOOUTREACH #### [facility] [address] [place] [address] USALDL Cholesterol,Bmyiwawgbp254 mg/dLHigh0-100Grant HospitalComment on above:Result Comment: LDL ATP III CLASSIFICATION LDL less than 100 mg/dL Optimal LDL 100-129 mg/dL Near or above optimal LDL 130-159 mg/dL Borderline high LDL 160-189 mg/dL High LDL greater than 189 mg/dL Very highPerformed By: #### OUTREACH CMP, OUTREACH LIPID, OUTREACH TSH, CBCNOOUTREACH #### [facility] [address] [place] [address] USATriglyceride w/Kajbwm94 mg/uTNzbxrm50-512HkyrsopymGrant HospitalComment on above:Result Comment: TRIG ATP III CLASSIFICATION TRIG less than 150 mg/dL Normal TRIG 150-199 mg/dL Borderline high TRIG 200-500 mg/dL High TRIG greater than 500 mg/dL Very high Standard traceable to the Center for Disease Conrtrol and Prevention (CDC) test method.Performed By: #### OUTREACH CMP, OUTREACH LIPID, OUTREACH TSH, CBCNOOUTREACH #### [facility] [address] [place] [address] USAVLDL LWIVGIPLRVE23 mg/dLNormUC West Chester HospitalComment on above:Performed By: #### OUTREACH CMP, OUTREACH LIPID, OUTREACH TSH, CBCNOOUTREACH #### [facility] [address] [place] [address] [facility] Auto (RBC) [Entitic mass]Ordered By: [facility] on 14-55-3229TJD (RBC) [Entitic mass]30.6 pg24.7-34.3Fire[facility] Regional Medical CenterMCHC Auto (RBC) [Mass/Vol]Ordered By: [facility] on 29-47-7605QBKR (RBC) [Mass/Vol]33.2 g/dL32.0-35.0Grant HospitalMCV Auto (RBC) [Entitic vol]Ordered By: [facility] on 03-13-2022 MCV (RBC) [Entitic vol]92.0 fA96-324MdzdbmmwyGrant HospitalNo Panel InformationOrdered By: [facility] on 23-00-1517Aovnttuoa GFR ()> 60 mL/MinGrant HospitalComment on above:GFR estimated reference range: According to KDOQI guidelines, <60 ml/min/1.73m2 is sufficient todiagnose a patient with chronic kidney disease.Pharmacy Creatinine Clearance (ChemN/[facility] HospitalTriglycerides Cfbzou44 mg/dL 35-149Grant HospitalComment on above:TRIG ATP III CLASSIFICATIONTRIG less than 150 mg/dL NormalTRIG 150-199 mg/dL Borderline highTRIG 200-500 mg/dL High TRIG greater than 500 mg/dL Very highStandard traceable to the Center for Disease Conrtrol and Prevention (CDC) test method. Platelet mean volume Auto (Bld) [Entitic vol]Ordered By: [facility] on 05-34-3962Flouuzbn mean volume (Bld) [Entitic vol]8.6 fL6.3-10.7FOhioHealth Pickerington Methodist HospitalPlatelets Auto (Bld) [#/Vol]Ordered By: [facility] on 37-05-0840Juyqercza (Bld) [#/Vol]283 10*3/cQ071-235VbxefwxhjGrant HospitalProtein [Mass/volume] in Serum or PlasmaOrdered By: [facility] on 89-39-5801Zlkfimq [Mass/Vol]6.8 g/dL6.1-7.9Grant HospitalRBC Auto (Bld) [#/Vol]Ordered By: [facility] on 95-72-3809XLR (Bld) [#/Vol]4.60 10*6/uL3.60-5.00Providence Hospitalerum or plasma alanine aminotransferase measurement without P-5'-P (enzymatic activiOrdered By: [facility] on 30-56-5235HCM No additional P-5'-P [Catalytic activity/Vol]21 U/Y27-61PvhpffldmProvidence Hospitalerum or plasma alkaline phosphatase measurement (enzymatic activity/volume)Ordered By: [facility] on 99-95-6455ZHA [Catalytic activity/Vol]42 U/L32-92 Providence Hospitalerum or plasma anion gap determinationOrdered By: [facility] on 95-45-2442Qoxtp gap [Moles/Vol]9.3 mmol/L6.0-15.0 Providence Hospitalerum or plasma aspartate aminotransferase measurement (enzymatic activity/volume)Ordered By: [facility] on 84-46-4285KTF [Catalytic activity/Vol]22 U/H61-05LxbsthfvpProvidence Hospitalerum or plasma calcium measurement (mass/volume)Ordered By: [facility] on 88-81-8070Rratlpl [Mass/Vol]9.2 mg/dL8.2-10.2FRiverside Methodist Hospitalerum or plasma chloride measurement (moles/volume)Ordered By: [facility] on 67-27-0643Bmbipsvu [Moles/Vol]103 mmol/A46-021HdklnyzmtProvidence Hospitalerum or plasma glucose measurement (mass/volume)Ordered By: [facility] on 36-82-4105Scidvjz [Mass/Vol]91 mg/uG41-239TmngoioulGrant HospitalComment on above:ADA recommended reference rangeRandom Glucose Reference Range is dependent on time and content of last meal. Glucose of more than 200 mg/dL in a nonstressed, ambulatory subject supports the diagnosisof Diabetes Mellitus.Serum or plasma high density lipoprotein (HDL) cholesterol measurementOrdered By: [facility] on 70-23-6709Txydgqiefyj in HDL [Mass/Vol]56 mg/wE10-04RtrvverreGrant HospitalComment on above: HDL CHOL ATP-III CLASSIFICATION Cardiovascular RiskHDL > or equal to 60 mg/dL LOWHDL < 40 mg/dL HIGHSerum or plasma potassium measurement (moles/volume) Ordered By: [facility] on 33-80-1804Kvkoedhty [Moles/Vol]4.1 mmol/L 3.5-5.1FRiverside Methodist Hospitalerum or plasma sodium measurement (moles/volume)Ordered By: [facility] on 34-84-3862Xdfnuy [Moles/Vol]136 mmol/R603-236AzfpxzmkdProvidence Hospitalerum or plasma total bilirubin measurement (mass/volume)Ordered By: [facility]ACH [facility] on 82-04-2398Lwfwfxrmg [Mass/Vol]0.6 mg/dL0.3-1.2FRiverside Methodist Hospitalerum or plasma total carbon dioxide measurement (moles/volume)Ordered By: [facility] on 92-24-3448HK9 [Moles/Vol]27.8 mmol/L22.0-30.0[facility] Serum or plasma total cholesterol/high density lipoprotein (HDL) cholesterol mass ratOrdered By: [facility] on 03-13-2022 Cholesterol.total/Cholesterol in HDL [Mass ratio]3.2 {ratio}<5.0[facility] Hospitalerum or plasma urea nitrogen measurement (mass/volume) Ordered By: [facility]ACH COMM[facility]ITY on 24-13-0640Ktch nitrogen [Mass/Vol]9 mg/dL9-23 [facility] HospitalTS DL <= 0.005 mIU/L QnOrdered By: [facility] COMM[facility] on 96-03-2574LDA Qn3.87 m[IU]/L0.45-5.33[facility] HospitalThyroid Stimulating Hormoneon 72-31-8904UUJ Qn3.87 m[IU]/LNormal0.45-5.33 [facility] HospitalComment on above:Result Comment: PERFORMED BY: [place] [address] PATHOLOGIST SUPERVISOR [employer] YEN ESCOBAR M.D.Performed By: #### OUTREACH CMP, OUTREACH LIPID, OUTREACH TSH, CBCNOOUTREACH #### [address] Vital Signs Date TimeVital SignValuePerforming EnqtfbskpFqgndqfi60-05-7692 09:38-0400Body mass index (BMI) [Ratio]32.79 kg/m2Sunshine THAO Work Phone: [facility] CenterUysdtelzpg32-84-9472 09:38-0400Body nqwobo93.64 kgSunshine THAO Work Phone: [facility] CenterShovxkeoaz13-84-9126 09:38-0400Diastolic blood mm[Hg]Sunshine Ding PA Work Phone: 1(090)381-[address] [place], [place] [address]Bodlvssass84-49-2825 09:38-0400Systolic blood nxwxnqux515 mm[Hg]Sunshine Ding PA Work Phone: [phone] [place], [place] [address]Wusawdbbzf33-98-0953 10:35-0400Body mass index (BMI) [Ratio]32.17 kg/e4Xnhnxxyj Emeli [employer]ING SET UP TECHNICIAN Work Phone: 1([phone])182-[address] [place], [place] [address]Nakrtzkhvz53-62-2370 10:35-0400Body aelxjj33 kg Walter Emeli [employer] SET UP TECHNICIAN Work Phone: [phone] [place], [place] [address]Iaadhmglch92-35-9378 10:35-0400Diastolic blood yikipkrg31 mm[Hg]Walter Emeli [employer] SET UP TECHNICIAN Work Phone: 1([phone])067-[address] [place], [place] [address]Ovksxpxaei42-72-6200 10:35-0400Systolic blood wgkpdact678 mm[Hg]Walter Emeli [employer] SET UP TECHNICIAN Work Phone: [phone])[facility] [place], [place] [address]Rdkftexiae31-01-2412 09:08-0400Body mass index (BMI) [Ratio]31.07 kg/j1Kqizxaif Emeli [employer] SET UP TECHNICIAN Work Phone: [phone])[facility] [place], [place] [address]Kiartpyxjq78-94-5525 09:08-0400Body .1 kg Walter Emeli [employer] SET UP TECHNICIAN Work Phone: [phone])[facility] [place], [place] [address]Uxordtrmli40-36-6312 09:08-0400Diastolic blood afzewnbr67 mm[Hg]Walter Emeli [employer] SET UP TECHNICIAN Work Phone: [phone])[facility] [place], [place] [address]Mshwjtbiks11-59-8998 09:08-0400Systolic blood djicskjc305 mm[Hg]Walter Emeli [employer] SET UP TECHNICIAN Work Phone: [phone])[facility] [place], [place] [address]Wxfvmodthq98-69-4930 11:54-0400Body mass index (BMI) [Ratio]29.7 kg/m2Sunshine Ding PA Work Phone: [phone] [place], [place] [address]Sdrobojkld16-26-7268 11:54-0400Body .47 kgSunshine THAO Work Phone: [phone])[facility] [place], [place] [address]Xjlsslssto56-38-9985 11:54-0400Diastolic blood fgdsqawi34 mm[Hg]Sunshine THAO Work Phone: [facility] CenterCnrjjzijly23-46-0969 11:54-0400Systolic blood rqtweeee598 mm[Hg]Sunshine THAO Work Phone: [facility] CenterSyxdmdwtdt86-52-7749 09:32-0400Body mass index (BMI) [Ratio]29.35 kg/n9Lpfvo Lalitha DO Work Phone: [facility] CenterHseoelbrwg00-51-1049 09:32-0400Body zshmpy85.56 kgCorey Lalitha DO Work Phone: [facility] CenterAdpwqdbqgj45-20-8265 09:32-0400Diastolic blood chsnjywf49 mm[Hg]Morro Lalitha DO Work Phone: [facility] CenterNeaigpyrdq29-31-4326 09:32-0400Systolic blood axblozxi237 mm[Hg]Morrorajinder Doty DO Work Phone: [facility] CenterOpurgrktjx66-44-5844 11:05-0400Body mass index (BMI) [Ratio]29.18 kg/m2[facility]06-06-2025 11:05-0400Body fzfwky05.11 kgP[facility]06-[facility]-2025 11:05-0400Diastolic blood fkkybnqc47 mm[Hg][facility]06-06-2025 11:05-0400Systolic blood zgeyabox044 mm[Hg][facility]05-20-2025 10:37-0400Body mass index (BMI) [Ratio]28.67 kg/m2Sunshine THAO Work Phone: [facility] CenterXtmxovfnbh56-06-3383 10:37-0400Body nxqyes08.75 kgSunshine THAO Work Phone: [facility] CenterDiwhulhiaf99-82-4363 10:37-0400Diastolic blood xfssnueo09 mm[Hg]Sunshine THAO Work Phone: [facility] CenterIxgnkviygs47-46-4667 10:37-0400Systolic blood olzivoba346 mm[Hg]Sunshine THAO Work Phone: [facility] CenterFrwahwmiba63-23-6650 14:00-0500Hourly Rounding Kai [facility]12-03-2024 14:00-0500[facility]12-[facility]-2024 13:00-0500[facility] RoundingEmmanBrown [facility] Hospital12-03-2024 13:00-0500 Promise to ReturnEmmanmirna [facility]12-03-2024 12:00-0500Hourly RoundingEmmanBrown [facility] Hospital12-03-2024 12:00-0500[facility] ReturnEmmanBrown [facility] 03-13-2024 04:08-0500Heart rate61 /minEmmanBrown Memorial Hospital12-03-2024 04:08-0373JcU9% (BldA) [Mass fraction]98 %[facility]12-03-2024 04:07-0500Diastolic blood mm[Hg][facility]12-03-2024 04:07-0500Mean blood lpygdcec13 mm[Hg][facility]12-03-2024 04:07-0500Systolic blood lmvoplwl50 mm[Hg][facility]12-03-2024 04:00-0500Blood Pressure LocationeveretteBrown Memorial Hospital12-03-2024 04:00-0500Body xmrcyxgxfcb91.88 [degF][facility]12-03-2024 01:00-0500Blood Pressure Location [facility]12-03-2024 01:00-0500Diastolic blood vypxikml75 mm[Hg][facility]12-03-2024 01:00-0500Heart rate67 /minEarabelladeannamirna [facility] 03-13-2024 01:00-0500Mean blood axsuanpg70 mm[Hg]Kai [facility]12-03-2024 01:00-0500Systolic blood qclidbrr38 mm[Hg]Kai [facility]12-03-2024 00:49-0500Heart rate63 /min [facility]12-03-2024 00:49-3554CgK5% (BldA) [Mass fraction]98 %[facility]12-03-2024 00:49-0500Diastolic blood xnmzrykd72 mm[Hg][facility]12-03-2024 00:49-0500Mean blood rpuocndb59 mm[Hg]Kai [facility]12-03-2024 00:49-0500Systolic blood gkqiurlq99 mm[Hg][facility]12-03-2024 00:49-0500Body duvmrjlqetj00.52 [degF][facility]12-02-2024 19:41-9931CdT7% (BldA) [Mass fraction]99 %[facility]12-02-2024 19:40-0500Body tzeshavrsmf83.88 [degF][facility]12-02-2024 19:40-0500Mean blood fumdhstj10 mm[Hg][facility]12-02-2024 16:00-0500Body sufouzfjybv94.24 [degF][facility]12-02-2024 13:01-0500Body vacksyzivan39.88 [degF][facility]12-02-2024 13:00-0500Heart rate87 /[facility]EK[facility] 03-12-2024 11:53-0500Mean blood mwbotnxw44 mm[Hg][facility]12-02-2024 11:53-0500Respiratory rate13 /[facility]12-02-2024 11:00-0500Mean blood utkcsdas14 mm[Hg][facility]12-02-2024 10:30-0500Respiratory rate11 /[facility]12-02-2024 07:04-0500 Respiratory rate16 /[facility]12-02-2024 05:46-0500Heart rate84 /[facility] Encounters Encounter DateEncounter TypeCare ProviderFacilityStart: 02-06-2025 End: 82-26-1608Hgqejg Jimmy THAO Work Phone: [facility] [place] [facility]BGYNStart: 02-06-2025 End: 55-18-5061Cwueav flowsMann THAO Work Phone: [facility] OBGYNStart: 02-06-2025 End: 55-34-2799Dqctxqta flow Yi THAO Work Phone: [facility] [place] OBGYNComment on above:Second trimester ([facility]); 27 weeks gestation of ([facility])Start: 02-06-2025 End: 80-60-3786hcgglvqgvyJVW RAMEYNot AvailableStart: 01-28-2025 End: 70-27-9066Ijxntn outpatient new 20 minutesRylearchana THAO Work Phone: [facility] Amy DermatologyComment on above:Melanocytic nevus of left upper extremity (Primary Dx); Melanocytic nevus, unspecified locationStart: 01-28-2025 End: 85-77-0267jyvjrypwtlFQGMT NORTHEIMNneelima AvailableStart: 01-28-2025 End: 72-55-3194Nqzddu flowsheetMarcos Salshayy PA Work Phone: [facility]ermatologyStart: 01-28-2025 End: 01-33-4152Ezbnkl flowsheetMarcos [place] PA Work Phone: [facility]ermatologyStart: 01-15-2025 End: 81-14-4976Qefvxn flowsheetWalter Sainz [employer]URING SET UP TECHNICIAN Work Phone: [facility] [place] [facility]BGYNStart: 01-15-2025 End: 14-45-3219Wcfiev flowsheetKrmacya Emeli [employer]ING SET UP TECHNICIAN Work Phone: [facility] OBGYNStart: 01-15-2025 End: 98-91-1838Jnykle outpatient visit 15 minutesWalter Sainz NP Work Phone: [facility] [place] OBGYNComment on above:24 weeks gestation of ([facility]); Second trimester ([facility]); Diabetes mellitus screening; PruritusStart: 01-15-2025 End: 06-89-3123zjdkycigmuTXMJQADR EBERLYNot AvailableStart: 12-17-2024 End: 30-37-8743Geniec outpatient visit 15 minutesWalter Sainz NP Work Phone: [facility] OBGYNComment on above:Second trimester ([facility]); 20 weeks gestation of ([facility]); Vasovagal episodeStart: 12-17-2024 End: 15-48-3390dihkdyaylaJFISSCHT EBERLYNot AvailableStart: 11-13-2024 End: 83-39-9082Zwpvrk outpatient visit 15 minutesSunshine THAO Work Phone: [facility] OBGYNComment on above:Second trimester ([facility]); 15 weeks gestation of ([facility]); Vasovagal episode; Need for maternal serum alpha-protein (MSAFP) screening ([facility]); Screening, , for anatomic survey ([facility])Start: 11-13-2024 End: 63-28-1368pcflzcasghOBP RAMEYNot AvailableStart: 11-05-2024 End: 55-10-5705semesdqvzgLIH RAMEYNot AvailableStart: 11-05-2024 End: 22-48-4618Hahienke flow sheetSunshine Ding KEESHA Work Phone: [facility] [place] OBGYNComment on above:Second trimester ([facility]); 14 weeks gestation of ([facility]); Vasovagal symptom; Screen for STD (sexually transmitted disease); Yeast infectionStart: 11-05-2024 End: 31-05-5151Ptqrtu flowsMann Mcclainphu THAO Work Phone: [facility] OBGYNStart: 11-05-2024 End: 68-94-4503Szvarj keoSunshine Caridad PA Work Phone: [facility] [place] [facility]BGYNStart: 10-16-2024 End: 46-17-4032Qldvdy flowsheetCorey Lalitha DO Work Phone: [facility] BCP OBStart: 10-16-2024 End: 86-55-4497Ngafcu flowsheetCorey Lalitha DO Work Phone: [facility] BCP OBStart: 10-16-2024 End: 79-32-8474Uszvzeio flow sheetCorey Lalitha DO Work Phone: [facility] BCP OBComment on above:First trimester ([facility]); 11 weeks gestation of ([facility]); Vasovagal episodeStart: 10-16-2024 End: 85-80-8342fzwqzhqinnATDHB FAZIONot AvailableStart: 10-08-2024 End: 13-33-1721Unpboxbbp Result EncounterCorey Lalitha DO Work Phone: [facility] External Department UnsolicitedStart: 10-08-2024 End: 64-61-2739Ercxkhpnm Result EncounterCorey Lalitha DO Work Phone: [facility] External Department UnsolicitedStart: 09-14-2024 End: 67-25-2268Fxxlynreg Result EncounterCorey Lalitha DO Work Phone: noMS External Department UnsolicitedStart: 09-14-2024 End: 75-25-8994Yuzgjjfna Result EncounterCorey Lalitha DO Work Phone: noms External Department UnsolicitedStart: 09-14-2024 End: 99-84-9902fjlpfluphkOVE RAMEYNot AvailableStart: 09-14-2024 End: 40-89-2225Wihdyl outpatient visit 5 minutesNoms Bcp Ob Lalitha NurseNOMS BCP OBComment on above:GA: 9x3mIrlhp: 08-30-2024 End: 15-56-9453fjhzotmcghCAR RAMEYNot AvailableStart: 08-28-2024 End: 73-83-4116Gfzsvu flowsheetSunshine THAO Work Phone: noMS BCP OBStart: 08-28-2024 End: 37-70-1583Jlnant flowsheetSunshine THAO Work Phone: noMS BCP OBStart: 08-28-2024 End: 74-82-7206Yegfsfrth Result EncounterAmy Caridad THAO Work Phone: noMS External Department UnsolicitedStart: 08-28-2024 End: 47-97-7842Nnboidrq Result EncounterSunshine THAO Work Phone: noMS External Department UnsolicitedStart: 08-28-2024 End: 67-05-2168brruohekbdGIK RAMEYNot AvailableStart: 08-28-2024 End: 23-03-2137Hpqbcdr encounter procedureSunshine THAO Work Phone: [facility] Work Phone: Start: 08-28-2024 End: 63-59-1394Rwmfznme preventive med est patient 18-39 yrsSunshine THAO Work Phone: noms BCP OBComment on above:Well woman exam with routine gynecological exam; Missed mensesStart: 06-04-2024 End: 26-07-5139gcmwdrupekHHZZPVYSpartanburg Medical Center Mary Black Campustart: 06-04-2024 End: 03-04-3948Lddkunafdy hospital visit by Radha Ba DO Work Phone: [facility] Non-Invasive CardiologyComment on above:Palpitations; Pre-syncopeStart: 03-12-2024 End: 88-71-2388gbfedtmmhuMljjdrn Leonor IvanrFacility:FTMCStart: 03-12-2024 Emergency department patient visitDO Tuan Marmolejo DomarinaenFacility:FTMCStart: 03-12-2024 End: 93-84-6059JnvkoeoffkwWihvjgsl Demond [facility] Start: 05-26-2022 End: 61-54-9768dfnolmpqrrMS MORRO LALITHA .Facility:U6Kdarn: 05-12-2022 End: 01-04-6666ogkrnlcdbjXS MORRO LALITHA .Facility:V6Tfzwu: 03-13-2022 End: 01-49-8254vqpclzjrynXyvdiujb CommunityFacility:[facility] Hospitaltart: 03-13-2022 End: 39-22-7684fzjlwegbsqTBYNTFCRV [facility] Work Phone: Start: 03-13-2022 End: 27-43-4079Avjoldcl ReferredPHYSICIAN NO [facility] Outreach Procedures DateProcedureProcedure DetailPerforming ClinicianStart: 46-67-2353Plirs dip stick/tablet rgnt non-auto w/o micrscAnastasiya THAO Work Phone: Start: 77-82-1504Swkzz dip stick/tablet rgnt non-auto w/o micrscpWalter Sainz [employer]ING SET UP TECHNICIAN Work Phone: Start: 01-04-5126Lfwyg dip stick/tablet rgnt non-auto w/o micrscpWalter Sainz [employer]URING SET UP TECHNICIAN Work Phone: Start: 00-36-9834Jvquj dip stick/tablet rgnt non-auto w/o charlottescAnastasiya Ding PA Work Phone: Start: 31-72-0287Futed dip stick/tablet rgnt non-auto w/o micrscpAmy Caridad THAO Work Phone: Start: 49-27-7818Bbnfl dip stick/tablet rgnt non-auto w/o micrscpCorey Lalitha DO Work Phone: Start: 89-48-0636HUS CBC WITH AUTO DIFFCorey Lalitha DO Work Phone: Start: 24-24-3128UR OB TRANSVAGINALCorey Lalitha DO Work Phone: Start: 21-41-1512Sufqm test visual color cmprsn methsCorey Lalitha DO Work Phone: Start: 65-85-9663CVQHHKHEP VAGINITIS (HTRX)Sunshine THAO Work Phone: Start: 54-37-1466RVM PREG QUANT HCGSunshine THAO Work Phone: Start: 01-63-2797Uxpww test visual color cmprsn methsAmy Caridad THAO Work Phone: None (qualifier value)Kai Mcrae Plan of Treatment DateCare ActivityDetailAuthorStart: 02-20-2025 End: 75-57-4475Qagzuio encounter yikigwgwi94/12/2025 10:50 AM EST Routine [facility] [address] [place] [id number] Morro Doty DO [address] [place] [address] NOMDi[facility] [place] OBGYNStart: 02-06-2025 End: 55-39-7384Czjcmva encounter procedureNOMS Tash OBGYNComment on above: ArrivedStart: 01-31-2025 End: 99-19-6730Lwrjqmi encounter cmttgyesa54/23/2025 3:50 PM EDT Office Visit [facility] [address] [place] [address] Tashi Lucerolee, PA [address] [place] [address] [facility]ermatologyStart: 01-28-2025 End: 13-68-2888Bgxpvvl encounter vwsgknimh23/20/2025 3:40 PM EDT Office Visit [facility] [address] [place] [address] SalbrandeeMarcos, PA [address] [place] [address] ArrivedTAY Orr DermatologyComment on above:ArrivedStart: 01-15-2025 End: 93-37-5053Sngu acids, totalBile acids, total Lab Routine Pruritus Expected: 01/15/2025 (Approximate), Expires: 01/15/2026NOMD HealthcareComment on above: Expected: 01/15/2025 (Approximate), Expires: 01/15/2026Start: 01-15-2025 End: 17-37-2707KWD panel - Blood by Automated countCBC Lab Routine Diabetes mellitus screening Expected: 01/15/2025 (Approximate), Expires: 01/15/2026[facility] Work Phone: comment on above:Expected: 01/15/2025 (Approximate), Expires: 01/15/2026Start: 01-15-2025 End: 22-18-8032VRY W Auto Differential panel - BloodCBC and differential Lab Routine Pruritus Expected: 01/15/2025 (Approximate), Expires: 01/15/2026[facility] HealthcareComment on above:Expected: 01/15/2025 (Approximate), Expires: 01/15/2026Start: 01-15-2025 End: 61-82-7330Ltwhqad function 2000 panel - Serum or PlasmaHepatic function panel Lab Routine Pruritus Expected: 01/15/2025 (Approximate), Expires: 01/15/2026[facility] HealthcareComment on above:Expected: 01/15/2025 (Approximate), Expires: 01/15/2026Start: 01-15-2025 End: 48-84-2549Yiygvtvoh C virus Ab [Presence] in Serum or Plasma by Immunoassay Hepatitis C antibody Lab Routine Pruritus Expected: 01/15/2025 (Approximate), Expires: 01/15/2026[facility] HealthcareComment on above:Expected: 01/15/2025 (Approximate), Expires: 01/15/2026Start: 01-15-2025 End: 48-48-7159Aakebsmgpqb of glucose 1 hour after glucose challenge for glucose tolerance testGlucose tolerance, 1 hour Lab Routine Diabetes mellitus screening Expected: 01/15/2025 (Approximate), Expires: 01/15/2026[facility] HealthcareComment on above:Expected: 01/15/2025 (Approximate), Expires: 01/15/2026Start: 01-15-2025 End: 76-10-2228Vygudojhwoj [Units/volume] in Serum or PlasmaTSH Lab Routine Pruritus Expected: 01/15/2025 (Approximate), Expires: 01/15/2026[facility] Healthcare Comment on above:Expected: 01/15/2025 (Approximate), Expires: 01/15/2026Start: 01-15-2025 End: 50-03-7658Qvkjezy encounter procedureNOMS [place] OBGYNComment on above: ArrivedStart: 12-17-2024 End: 98-59-3396Xlfcfsj encounter fnztnzicc33/08/2025 9:20 AM EDT Routine [facility] [address] [address] [place], [id number] Morro Doty DO [address] [place] [address] NOMDiogenes BLAKEGYNStart: 12-17-2024 End: 22-43-8156Dmzogrswcvqr / ancillary services zhvlnifccz92/08/2025 8:00 AM EDT Ancillary Procedure [facility] [address] [place] [address] [facility] [place] [facility]BGYNStart: 11-13-2024 End: 80-97-7055Qqvag fetoprotein, maternalAlpha fetoprotein, maternal Lab Routine Need for maternal serum alpha-protein (MSAFP) screening ([facility]) Expected: 11/13/2024 (Approximate), Expires: 01/13/2025[facility] Work Phone: comment on above:Expected: 11/13/2024 (Approximate), Expires: 01/13/2025Start: 11-13-2024 End: 72-59-7923DX for pregnancyUS OB 14+ weeks anatomy scan Imaging Routine Screening, , for anatomic survey ([facility]) Expected: 11/13/2024 (Approximate), Expires: 02/13/2025NOMS HealthcareComment on above:Expected: 11/13/2024 (Approximate), Expires: 02/13/2025Start: 11-13-2024 End: 53-04-7164Clplgsp encounter procedureNOMS BCP OBStart: 10-16-2024 End: 62-85-5534Twehnht encounter procedureNOMS BCP OBComment on above:Arrived Start: 67-48-6339Nvggsxkzey ScreenDepression ScreenBon [facility] Start: 09-14-2024 End: 46-54-7799VCM/RhABO/Rh Lab Routine Missed menses , unspecified gestational age Expected: 09/14/2024 (Approximate), Expires: 09/14/2025NOM[facility] HealthcareComment on above:Expected: 09/14/2024 (Approximate), Expires: 09/14/2025Start: 09-14-2024 End: 98-51-8282Lyvku type and Indirect antibody screen panel - BloodType and screen Lab Routine Missed menses , unspecified gestational age Expected: 09/14/2024 (Approximate), Expires: 09/14/2025[facility] Work Phone: comment on above:Expected: 09/14/2024 (Approximate), Expires: 09/14/2025Start: 09-14-2024 End: 24-24-8576Qzqar of abuse panel - Urine by Screen methodRapid drug screen, urine Lab Routine , unspecified gestational age Encounter for supervision of normal first in first trimester Expected: 09/14/2024 (Approximate), Expires: 09/14/2025[facility] HealthcareComment on above:Expected: 09/14/2024 (Approximate), Expires: 09/14/2025Start: 08-30-2024 End: 36-78-6885kxsbgyjxgr51/22/2025 2:00 PM EDT Initial [facility] [address] [place] [address] FCQZ BCP OBStart: 08-30-2024 End: 06-28-4193Mtbxdlntqkol / ancillary services cirekygnfi89/22/2025 1:30 PM EDT Ancillary Procedure [facility] [address] [place] [address] [place] [address] LRPP BCP OBStart: 08-28-2024 End: 10-87-7495dAP, quantitative, pregnancyhCG, quantitative, Lab Routine Missed menses Expected: 08/28/2024 (Approximate), Expires:08/28/2025N[facility] HealthcareComment on above:Expected: 08/28/2024 (Approximate), Expires: 08/28/2025Start: 08-28-2024 End: 18-36-2466QE Pelvis transvaginalUS OB transvaginal Imaging Routine Missed menses Expected: 08/28/2024, Expires: 11/28/2024[facility] HealthcareComment on above: Expected: 08/28/2024, Expires: 11/28/2024Start: 16-39-6257KDBEJ-19 Vaccine ( season)COVID-19 Vaccine ( season)[facility] Start: 88-52-2760Tacvtkvjs vaccinationFlu vaccine (#1)[facility] Start: 79-81-0022Njdieabed for malignant neoplasm of cervixPap smearBon Secours Depaul Medical CenterStart: 06-11-3211OXjJ/Tdap/Td vaccine (1 - Tdap)DTaP/Tdap/Td vaccine (1 - Tdap)[facility] CenterStart: 83-13-9608Njwdbnrne B vaccine (1 of 3 - 19+ 3-dose series)Hepatitis B vaccine (1 of 3 - 19+ 3-dose series)[facility] CenterStart: 18-99-9749Bwuqgyyyb C screeningHepatitis C screenBon [facility] CenterStart: 41-45-6707TPC screeningHIV screenBon [facility] Start: 10-62-8566AHE vaccine (1 - 3-dose series)HPV vaccine (1 - 3-dose series) [facility]art: 06-84-8702Ufjerlirs vaccine (1 of 2 - 13+ 2-dose series)Varicella vaccine (1 of 2 - 13+ 2-dose series)[facility] Bacteria identified in Urine by CultureUrine culture Microbiology Routine Missed menses Ordered: 09/14/2024[facility] CenterComment on above:Ordered: 09/14/2024 CBC W Auto Differential panel - BloodCBC and differential Lab Routine Missed menses , unspecified gestational age Ordered: 09/14/2024[facility] Comment on above:Ordered: 09/14/2024HLAMYDIA TRACHOMATIS (GENITO/STI)CHLAMYDIA TRACHOMATIS (GENITO/STI) Lab Routine Screen for STD (sexually transmitted disease) Ordered: 11/05/2024[facility] CenterComment on above:Ordered: 11/05/2024 Cytology Cervical or vaginal smear or scraping studyPap Smear Pathology and Cytology Routine Well woman exam with routine gynecological exam Ordered: [facility] Work Phone: comment on above:Ordered: 08/28/2024 End: 71-69-4920Mspizfva cardiac holter monitor (3 days-14 day)[facility]:1 Occurrences starting 06/04/2024 until 06/04/2024 Hemoglobin A1c/Hemoglobin.total in BloodHemoglobin A1c Lab Routine Missed menses , unspecified gestational age Ordered: 09/14/2024[facility] Comment on above:Ordered: 09/14/2024Hepatitis B virus surface Ag [Presence] in Serum or Plasma by ImmunoassayHepatitis B surface antigen Lab Routine Missed menses , unspecified gestational age Ordered: 09/14/2024[facility] Comment on above:Ordered: 09/14/2024Hepatitis C virus Ab [Presence] in Serum or Plasma by ImmunoassayHepatitis C antibody Lab Routine Missed menses , unspecified gestational age [facility]: [facility]/2024[facility]: Ordered: 09/14/2024HIV-1/HIV-2 antigen/antibody combination immunoassayHIV-1 and HIV-2 antibodies Lab Routine Missed menses , unspecified gestational age Ordered: 09/14/2024[facility] HealthcareComment on above:Ordered: 09/14/2024 Neisseria gonorrhoeae DNA [Presence] in Unspecified specimen by JACQUELINE with probe detectionNeisseria gonorrhea DNA probe, direct Lab Routine Screen for STD (sexually transmitted disease) Ordered: 11/05/2024[facility] HealthcareComment on above:Ordered: 11/05/2024Reagin Ab [Presence] in Serum by RPRRPR Lab Routine Missed menses , unspecified gestational age Ordered: 09/14/2024[facility] HealthcareComment on above:Ordered: 09/14/2024Rubella antibody, IgGRubella antibody, IgG Lab Routine Missed menses , unspecified gestational age Ordered: 09/14/2024[facility] HealthcareComment on above:Ordered: 09/14/2024 SURESWAB(R) ADVANCED VAGINITIS PLUS, TMASURESWAB(R) ADVANCED VAGINITIS PLUS, TMA Pathology and Cytology Routine Screen for STD (sexually transmitted disease) Yeast infection Ordered: 11/05/2024[facility] Work Phone: comment on above:Ordered: 11/05/2024 Immunizations Immunization DateImmunizationNotesCare ZitlubrdTtgdwmlg97-52-6908xbydysuos virus vaccine, live, attenuated, for intranasal useC[facility] [place] Payers DatePayer CategoryPayerPolicy [id number] Health Insurance [id number] 2.16.840.1.314182.3.57[id number] 2.16.840.1.277578.3.57[id number] 2.16.840.1.099098.3.57[id number] 2.16.840.1.892751.3.57[id number] 2.16.840.1.546318.3.57[id number] 2.16.840.1.818194.3.57[id number] 2.16840.1.103050.3.57[id number] 2.16.840.1.196194.3.57[id number] 2.16.840.1.859933.3.57[id number] 2.16.840.1.319256.3.579.[id number] 2.16.840.1.656958.3.57[id number] 2.16.840.1.718931.3.57[id number] 2.16.840.1.236964.3.57[id number] 2.16840.1.397921.3.57[id number] 2.840.1.553439.3.57[id number] 2.840.1.009198.3.57[id number] 2.16.840.1.807046.3.57[id number] 2.0.1.367896.3.57[id number] / [id number] [id number] 2..840.1.597327.3.579.2.531 Social History DateTypeDetailFacilityStart: 01-01-2017 End: 34-35-3928Uuxlmwu smoking status NHISNever smoked tobacco (finding) [facility]: 11-01-5184Okg [facility] Comment on above:DeniesTobacco smoking statusNo Smoking Status [facility] Start: 08-18-2020 End: 23-57-0356Syp Assigned At [facility]: 90-61-7582Txefvjh use and exposureSmokeless tobacco non-userBon Jade MagnetStart: 27-58-5665Uzlrjreso beverage intakeLifetime non-drinker (finding) [facility] MagnetStart: 08-18-2020 End: 64-82-7118Rirkdft of Social functionBon Insplorion HealthHow often to you have a drink containing alcohol?NeverBon Jade MagnetStart: 65-15-4771Slb many standard drinks containing alcohol do you have on a typical day?Not askedBon Jade Magnet(I/We) worried whether (my/our) food would run out before (I/we) got money to buy more.Never trueBalaji Insplorion [facility] Start: 02-67-1480Yjm assigned at birthNot on fileInova Alexandria HospitalAylus Networks [facility] HospitalTobacco smoking status NHISTobacco smoking consumption unknownNOMD HealthcareStart: 30-99-4145Jfnvcl identityIdentifies as female gender (finding)[facility] Start: 64-12-3829Abiphr orientationHeterosexual (finding)[facility] HealthcareStart: 58-17-1935QjtchfjbzEDGM Healthcare Functional Status HvbrLwbbtogmczEnpduoWlqyugay39-83-0153Ongduwiilp StatusL[facility]24[facility] 03-12-2024 to 02-06-2025 Note Date & MwseZkwwEzblgdfu23-81-2112 History of Present illness Narrative* KEESHA Resendiz [...] supervision of normal first in first trimester ([facility]) 09/14/2024 Vasovagal episode 10/16/2024 Resolved Ambulatory Problems Diagnosis Date Noted No Resolved Ambulatory Problems Past Medical History: Diagnosis Date Positive urine test ([facility]) HISTORY PAST MEDICAL HISTORY SOCIAL HISTORY Past Medical History: Diagnosis Date Positive urine test ([facility]) Social History Tobacco Use Smoking status: Not [...] ASSESSMENT & PLAN ICD-10-CM 1. Second trimester ([facility]) Z34.92 2. 27 weeks gestation of ([facility]) Z3A.27 POCT urinalysis dipstick manually resulted Return [...] behalf of: KEESHA Resendiz documented in this encounterEllis Fischel Cancer CenterIifvgjupvz01-99-0340 History of Present illness Narrative* KEESHA Nj [...] for any new/changing lesions documented in this encounterEllis Fischel Cancer CenterTqltcocrjf18-17-5050 History of Present illness Narrative* Walter Sainz [...] supervision of normal first in first trimester ([facility]) 09/14/2024 Vasovagal episode 10/16/2024 Resolved Ambulatory Problems Diagnosis Date Noted No Resolved Ambulatory Problems Past Medical History: Diagnosis Date Positive urine test ([facility]) HISTORY PAST MEDICAL HISTORY SOCIAL HISTORY Past Medical History: Diagnosis Date Positive urine test ([facility]) Social History Tobacco Use Smoking status: Not [...] nursing note reviewed. Exam conducted with a mechanical test technician present. Vitals: Estimated body mass index is 32.17 kg/m as calculated from the following: Height as of 08/24/23: 5' 4 . Weight as of this encounter: 187 lb 6.4 oz. BP: 124/80 Patient's last menstrual period was 06/27/2024. ASSESSMENT & PLAN ICD-10-CM 1. 24 weeks gestation of ([facility]) Z3A.24 POCT urinalysis dipstick manually resulted 2. Second trimester ([facility]) Z34.92 3. Diabetes mellitus screening Z13.1 CBC [...] of: Walter Sainz NP documented in this encounterEllis Fischel Cancer CenterInukbklrih10-21-6042 History of Present illness Narrative* Mary Fournier [...] supervision of normal first in first trimester ([facility]) 09/14/2024 Vasovagal episode 10/16/2024 Resolved Ambulatory Problems Diagnosis Date Noted No Resolved Ambulatory Problems Past Medical History: Diagnosis Date Positive urine test ([facility]) HISTORY PAST MEDICAL HISTORY SOCIAL HISTORY Past Medical History: Diagnosis Date Positive urine test ([facility]) Social History Tobacco Use Smoking status: Not [...] nursing note reviewed. Exam conducted with a mechanical test technician present. Vitals: Estimated body mass index is 31.07 kg/m as calculated from the following: Height as of 08/24/23: 5' 4 . Weight as of this encounter: 181 lb. BP: 118/74 Patient's last menstrual period was 06/27/2024. ASSESSMENT & PLAN ICD-10-CM 1. Second trimester ([facility]) Z34.92 POCT urinalysis dipstick manually resulted 2. 20 weeks gestation of ([facility]) Z3A.20 3. Vasovagal episode R55 Patient presents [...] of: Walter Sainz NP documented in this encounterEllis Fischel Cancer CenterSzyjkuufmz46-01-5264 History of Present illness Narrative* KEESHA Resendiz [...] supervision of normal first in first trimester ([facility]) 09/14/2024 Vasovagal episode 10/16/2024 Resolved Ambulatory Problems Diagnosis Date Noted No Resolved Ambulatory Problems Past Medical History: Diagnosis Date Positive urine test ([facility]) HISTORY PAST MEDICAL HISTORY SOCIAL HISTORY Past Medical History: Diagnosis Date Positive urine test ([facility]) Social History Tobacco Use Smoking status: Not [...] ASSESSMENT & PLAN ICD-10-CM 1. Second trimester ([facility]) Z34.92 POCT urinalysis dipstick manually resulted 2. 15 weeks gestation of ([facility]) Z3A.15 3. Vasovagal episode R55 4. Need for maternal serum alpha-protein (MSAFP) screening ([facility]) Z36.1 Alpha fetoprotein, maternal Alpha fetoprotein, maternal [...] MSAFP/Anatomy US order to have obtained at [facility]. Orders Placed This Encounter Procedures Alpha fetoprotein, maternal POCT urinalysis dipstick manually resulted Follow Up: Patient is to return to office in 4 week for routine OB appointment. Documented by Olena Gould MA on behalf of: KEESHA Resendiz documented in this encounterEllis Fischel Cancer CenterPjkjyvsyxa25-29-3559 History of Present illness Narrative* KEESHA Resendiz [...] supervision of normal first in first trimester ([facility]) 09/14/2024 Vasovagal episode 10/16/2024 Resolved Ambulatory Problems [...] 06/27/2024. ASSESSMENT & PLAN (Z34.92) Second trimester ([facility]) Plan: POCT urinalysis dipstick manually resulted (Z3A.14) 14 weeks gestation of ([facility]) (R55) Vasovagal symptom (Z11.3) Screen for STD [...] behalf of: KEESHA Resendiz documented in this encounterEllis Fischel Cancer CenterWgyubkcjud62-03-8873 History of Present illness Narrative* Анна Hare [...] supervision of normal first in first trimester ([facility]) 09/14/2024 Vasovagal episode 10/16/2024 Resolved Ambulatory Problems [...] nursing note reviewed. Exam conducted with a mechanical test technician present. Vitals: Estimated body mass index is 29.35 kg/m as calculated from the following: Height as of 08/24/23: 5' 4 . Weight as of this encounter: 171 lb. BP: 112/64 Patient's last menstrual period was 06/27/2024. ASSESSMENT & PLAN ICD-10-CM 1. First trimester ([facility]) Z34.91 POCT urinalysis dipstick manually resulted 2. 11 weeks gestation of ([facility]) Z3A.11 3. Vasovagal episode R55 New OB: [...] or undercooked meat, and stay away from [facility]. Patient has been consulted regarding any further do's and don'tsof . Patient voiced understanding and all questions and concerns were answered. Orders Placed This Encounter Procedures POCT urinalysis dipstick manually resulted Follow Up: Patient is to return in 4 weeks for routine OB appointment. Documented by нАна Hare LPN on behalf of: Morro Doty DO documented in this encounterEllis Fischel Cancer CenterFrsnwogymx95-58-8863 History of Present illness Narrative* Olena Gould [...] weeks gestation of Nurse Note: Patient desires [place]. Advised pt to make sure to wait until 9 weeks and take labs along w/[place] to have drawn. The lab will not [...] or undercooked meat, and stay away from [facility]. Patient has also been advised to [...] by: Olena Gould MA documented in this encounterEllis Fischel Cancer CenterJcstflduow84-27-6073 History of Present illness Narrative* KEESHA Resendiz [...] nursing note reviewed. Exam conducted with a mechanical test technician present. Vitals: Estimated body mass index [...] behalf of: KEESHA Resendiz documented in this encounterEllis Fischel Cancer CenterSllpelhgfa62-69-9141 Evaluation + Plan note Extracted from:Title:Discharge NoteAuthor:Moses Smith DODate:03/13/24 Discharge To, Anticipated II - Home with responsible caregiver Prescriptions No active prescription medications Home No active home medications With When Contact Information Mark RIZVI, IRIS Alexander Within 2 to 4 weeks Additional Instructions: Call for followup appointment Remigio RIZVI, KYLAH Esteves Within 2 to 4 weeks [facility] [place] [address]- Additional Instructions: Postural Orthostatic Tachycardia Syndrome Orthostatic Hypotension Near-Syncope, Keqa-hm-Mxvo Extracted from:Title:Consult Note- NeurologyAuthor:Hayley Nicholas RN ADate: [...] Ordered: Initial Hospital Care/Day Moderate 55 Minutes 30194 2. Postural orthostatic tachycardia syndrome [POTS] (G90.A: [...] hypotension Diagnostic Tests Pending * Cortisol 03/13/24 [facility] 12-03-2024 Hospital Discharge instructions Patient [...] Follow these instructions at home: Medicines Take vpur-jsr-timxxii and prescription medicines only as told by your health care provider. Let your health care provider know about all prescription or vhhv-wxr-koyblpd medicines you take. These include herbs, vitamins, [...] provider. Document Revised: 10/08/2021 Document Reviewed: 10/08/2021 [employer] Patient Education 2023 [employer]. 03/13/2024 11:57:29 Orthostatic Hypotension Orthostatic Hypotension Blood [...] Follow these instructions at home: Medicines Take hygc-gqe-rcnjjgi and prescription medicines only as told by [...] provider. Document Revised: 06/11/2021 Document Reviewed: 06/11/2021 [employer] Patient Education 2023 [employer]. 03/13/2024 11:56:07 Near-Syncope, Nszr-fx-Uoet Near-Syncope Near-syncope is when you suddenly feel [...] Follow these instructions at home: Medicines Take pkkb-wyk-ohgidrq and prescription medicines only as told by [...] provider. Document Revised: 08/06/2021 Document Reviewed: 08/06/2021 [employer] Patient Education 2023 [employer]. 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 With:Mark RIZVI, Benjamin, CAR Address: When:2 to 4 weeks Comments:Call for followup appointment [facility] 12-03-2024 NoteDischarge Summary Admission and Discharge Information Admitting Physician - Thor RIZVI, Kai Lagos Consulting Physician - Remigio RIZVI, Benjamin Ruiz MD [facility] Cardio, XXXX Admitting Diagnoses: Discharge Diagnoses 1. [...] EST, syncope, Consult and Co-manage Consult to Hse Specialist - Ordered -- 03/12/24 13:52:06 EST Physical [...] Additional Instructions: Call for followup appointment Anthony Folod MD, NEU Within 2 to 4 weeks [facility] [address] [place] [address]- Additional Instructions: Patient Education Postural Orthostatic Tac (more content not included)...[facility] HospitalComment on above:Result Comment: Electronically Signed By: Moses Smith DO\.br\Date and Time Signed: 03/13/24 12:08 [id number] Note Echocardiology Procedure Exam Date/Time Accession # Ordering Echo Transthoracic 03/13/2024 10:27 EST [id number] Moses Smith DO Complete CPT code 98327 05959 Reason for Exam (Echo Transthoracic Complete) Syncope Report [facility] [address] [place] [address] Adult Echocardiogram Report Name: JYOTI TORRES Study Date: 03/13/2024 09:56 AM BP: 96/61 mmHg Patient Location: [address] [place] [address] Bed(s) [facility] HR: 57 : 2000 Gender: Female Height: [...] Benjamin Flores MD Transcribed by: ROSE Technologist: [facility]12-03-2024 Note Consultation Note Chief Complaint abdomenal [...] sensation in all 4 extremities Cerebellar exam: Acfrab-an-gkzf reveals no ataxia. Gait is normal Assessment/Plan [...] None. Medications Inpatient ac (more content not included)...[facility] HospitalComment on above: Result Comment: Electronically Signed By: Hayley Nicholas RN\.br\Date and Time Signed: 03/13/24 07:03 EST\.br\Electronically Co-Signed By: Anthony Flood MD\.br\Date and Time Co-Signed: 03/13/2409:18 EST\.br\Electronically Co- Signed By: Hayley Nicholas RN [id number] NoteHistory and Physical Chief Complaint abd pain [...] Lymph Auto: 10.6 % Low (03/12/24 06:09:00) [place] Auto: 5.7 % (03/12/24 06:09:00) Eos Auto: 0.6 % (03/12/24 06:09:00) Basophil Auto: 0.2 % (03/12/24 06:09:00) Neutro Absolute: 13.5 E9/L High (03/12/24 06:09:00) Lymph Absolute: 1.7 E9/L (03/12/24 06:09:00) [place] Absolute: 0.9 E9/L (03/12/24 06:09:00) Eos Absolute: [...] WBC: 0-5 (03/12/24 06:09:00) (more content not included)...[facility] HospitalComment on above:Result Comment: Electronically Signed By: Moses Smith DO\Date and Time Signed: 03/12/24 12:09 ESTEvaluation noteNo assessment information available [facility] Work Phone: Evaluation note* Diagnosis Palpitations Pre-syncope Syncope and collapse documented in this encounter [facility]* Diagnosis Well woman exam with routine gynecological exam Routine gynecological examination Missed menses documented in this encounter [facility]Evaluation [facility]* Diagnosis Amenorrhea Absence of menstruation Missed menses , unspecified gestational age Encounter for supervision of normal first in first trimester 6 weeks gestation of documented in this encounter [facility] HealthcareEvaluation [facility]* Diagnosis First trimester ([facility]-HCC) state, [...] Need for maternal serum alpha-protein (MSAFP) screening ([facility]) Screening, , for anatomic survey ([facility]) Encounter for anatomic survey documented [...] Narrative No data available for this section [facility] Progress note No data available for this section [facility] Chief Complaint and Reason for [...] Extended cardiac holter monitor (3 days-14 day) CT EXTERNAL ECG REC>48HR<7D REVIEW & INTERPRETATION CT EXTERNAL ECG REC>48HR<7D RECORDING CT EXTERNAL ECG REC>7D<15D RECORDING CT EXTERNAL ECG REC>7D<15D REVIEW & INTERPRETATION Jenna Ba DO [address] [place] [address] [address] Referral IDStatusReasonStart DateExpiration DateVisits RequestedVisits [id number]/24/20255/ Additional Source Comments Care Teams (unrecognized sec tion and content) Team Status: Inactive Member Role Status Dates Outreach Community Attending Provider Active PHYSICIAN NO FAMILYPrimary Care ProviderActive Team Status: Active Member Role Status Dates PHYSICIAN NO FAMILY Primary Care Provider Active Team MemberRelationshipSpecialtyStart DateEnd Date Jenna Ba DO [address] [place] [address] PCP - GeneralFamily Medicine09/29/23 MemberRelationshipSpecialtyStart DateEnd Date Jenna Ba MD [address] [place] [address] PCP - GeneralGeneral Xmgtszgi85/10/24Team MemberRelationshipSpecialtyStart Date End Date Jenna Ba MD [address] [place] [address] PCP - GeneralGeneral Alykibsg85/10/24Team MemberRelationshipSpecialtyStart Date End Date Jenna Ba MD [address] [place] [address] PCP - GeneralGeneral Broxscwj16/10/24Team MemberRelationshipSpecialtyStart Date End Date Jenna Ba MD [address] [place] [address] PCP - GeneralGeneral Qtijiowz70/10/24am MemberRelationshipSpecialtyStart Date End Date Jenna Ba MD [address] [place] [address] PCP - GeneralGeneral Foxaarry09/10/24am MemberRelationshipSpecialtyStart Date End Date Jenna Ba MD [address] [place] [address] PCP - GeneralGeneral Jabvqdes19/10/24Team MemberRelationshipSpecialtyStart Date End Date Jenna Ba MD [address] [place] [address] PCP - GeneralGeneral Gvqyrjwe40/10/24Team MemberRelationshipSpecialtyStart Date End Date Jenna Ba MD [address] [place] [address] PCP - GeneralGeneral Kgmcgxsp10/10/24Team MemberRelationshipSpecialtyStart Date End Date Jenna Ba MD [address] [place] [address] PCP - GeneralGeneral Eeueudnu84/10/24Team MemberRelationshipSpecialtyStart Date End Date Jenna Ba MD [address] [place] [address] PCP - GeneralGeneral Ocluyxvq22/10/24Te MemberRelationshipSpecialtyStart Date End Date Jenna Ba MD [address] [place] [address] PCP - GeneralGeneral Vdwjxrxr07/10/24Te MemberRelationshipSpecialtyStart Date End Date Jenna Ba MD [address] [place] [address] PCP - GeneralGeneral Kbukcoyq22/10/24 Goals (unrecognized section and content) Goals may be documented in a n alternate section No data available for this section INFORMATION SOURCE (unrecogn ized section and content) DATE CREATED AUTHOR 03/14/2022 [facility] DATE CREATED AUTHOR AUTHOR'S ORGANIZ ATION 07/23/2022 [facility] DATE CREATED AUTHOR AUTHOR'S ORGANIZ ATION 03/12/2024 [facility] DATE CREATED AUTHOR AUTHOR'S ORGANIZ ATION 03/14/2024 [facility] DATE CREATED AUTHOR AUTHOR'S ORGANIZ ATION 03/16/2024 [facility] DATE CREATED AUTHOR AUTHOR'S ORGANIZ ATION 06/08/2024 [facility] DATE CREATED AUTHOR AUTHOR'S ORGANIZ ATION 02/07/2025 [facility] EPIC Reason for Visit (unrecogniz ed section and content) SpecialtyDiagnoses / ProceduresReferred By ContactReferred To ContactCardiology Diagnoses Palpitations Pre-syncope Procedures Extended cardiac holter monitor (3 days-14 day) CT EXTERNAL ECG REC>48HR<7D REVIEW & INTERPRETATION CT EXTERNAL ECG REC>48HR<7D RECORDING CT EXTERNAL ECG REC>7D<15D RECORDING CT EXTERNAL ECG REC>7D<15D REVIEW & INTERPRETATION Jenna Ba DO [address] [place] [address] [facility] [address] [place] [address] Referral IDStatusReasonStart DateExpiration DateVisits RequestedVisits [id number]/24/20255/25/742980MajbfsMvdknxijRjkp Women VisitReason CommentsAmenorrheaReasonCommentsRoutine VisitReasonCommentsSkin Check FOR RECORDS [...] BE BASED ON THE PRIMARY CLINICAL RECORDS. [facility]. provides no warranty or guarantee of the accuracy or completeness of information in this document.
--- OUTSIDE RECORDS SUMMARY | 2025-02-20 10:50 | XMS_ITS | Encounter Summary ---
Author Organization [facility] Address [address] [place] [address] Care Team Providers Care Conservation Assistant Name Role Phone Emery Flood MD Primary Care Provider Reason for Visit * ReasonCommentsRoutine Visit Encounter Details DateTypeDepartmentCare Team (Latest Contact Info)Mgbveibiisn44/12/2025 10:50 AM ESTRoutine [facility] [address] [place] [address] Morro Doty DO [address] Donn [place], [facility]11 29 weeks gestation of ([facility]); Third trimester ([facility]); Pruritus; Vasovagal episode; size inconsistent with dates ([facility]) Social History Tobacco UseTypesPacks/DayYears UsedDateSmoking Tobacco: Never Assessed Estimated Date of RwatzrnxBmdcvrmdQvm27/24/2026ased on UltrasoundSex and Gender InformationValueDate RecordedSex Assigned at BasnrEscllf02/14/2024 1:04 PM EDT Legal PecLkhmuf86/15/2023 11:49 PM EDTGender VrttkijgDnwamp22/14/2024 1:04 PM EDTSexual EdmwudvhyelBtjbquld31/14/2024 1:04 PM EDTdocumented as of this encounter Last Filed Vital Signs Vital SignReadingTime TakenCommentsBlood Tmedvlsd952/6802/20/2025 10:54 AM EST Pulse--Temperature--Respiratory Rate--Oxygen Saturation--Inhaled Oxygen Concentration--Xiador36.9 kg (193 lb 12.8 oz)02/20/2025 10:54 AM ESTHeight--Body Mass Index33.27008/24/2023 9:07 AM EDTdocumented in this encounter Progress Notes * Анна Hare, BROKE BEATER OPERATOR - 02/20/2025 10:50 AM EST Reason for Appointment: Patient ID: Jyoti Torres is a 24 y.o. female who presents for Routine Visit Patient presents today for Return OB appointment. MEDICATIONS No current outpatient medications ALLERGIES No Known Allergies PROBLEMS Active Ambulatory Problems Diagnosis Date Noted Missed menses 08/30/2024 Amenorrhea 09/14/2024 Encounter for supervision of normal first in first trimester ([facility]) 09/14/2024 Vasovagal episode 10/16/2024 Resolved Ambulatory Problems Diagnosis Date Noted No Resolved Ambulatory Problems Past Medical History: Diagnosis Date Positive urine test ([facility]) HISTORY PAST MEDICAL HISTORY SOCIAL HISTORY Past Medical History: Diagnosis Date Positive urine test ([facility]) Social History Tobacco Use Smoking status: [...] nursing note reviewed. Exam conducted with a trigonometry tutor present. Vitals: Estimated body mass index is 33.27 kg/m?? as calculated from the following: Height as of 24: 5' 4 . Weight as of this encounter: 193 lb 12.8 oz. BP: 112/68 Patient's last menstrual period was 06/27/2024. Assessment/Plan ICD-10-CM 1. 29 weeks gestation of ([facility]) Z3A.29 POCT urinalysis dipstick manually resulted US OB follow up transabdominal approach 2. Third trimester ([facility]) Z34.93 POCT urinalysis dipstick manually resulted 3. Pruritus L29.9 4. Vasovagal episode R55 5. size inconsistent with dates ([facility]) O26.849 US OB follow up transabdominal approach Assessment/Plan Return OB: Patient presents today for a routine obstetrics appointment. Patient is currently 29w4d . Patient states she is doing well but has complaints of being tired due to current . Patient has verbalizes frequent movement. labor precautions was discussed/given and patient was instructed to perform kick counts three times a day. Orders Placed This Encounter Procedures US OB follow up transabdominal approach POCT urinalysis dipstick manually resulted Follow Up: Patient is to return to office in 2 week for routine OB appointment. Documented by Анна Hare LPN on behalf of: Morro Doty DO documented in this encounter Plan of Treatment DateTypeDepartmentCare Team (Latest Contact Info)Itzfqgprytk27/26/2025 9:00 AM ESTAncillary Procedure [facility] [address] [place] [address] [place] [address] 03/06/2025 9:40 AM ESTRoutine [facility] [address] [place] [address] Sunshine Mclean PA [address] [place] [address] NameTypePriorityAssociated DiagnosesOrder ScheduleUS OB follow up transabdominal approachImagingRoutine 29 weeks gestation of ([facility]) size inconsistent with dates ([facility]) Expected: 02/20/2025, Expires: 06/20/2025documented as of this encounter Procedures Procedure NamePriorityDate/TimeAssociated DiagnosisCommentsPOCT URINALYSIS GDPTTYPGQuctstf98/12/2025 10:58 AM EST 29 weeks gestation of ([facility]) Third trimester ([facility]) documented in this encounter Results * (ABNORMAL) POCT urinalysis dipstick manually resulted (02/20/2025 10:58 AM EST)ComponentValueRef RangeTest MethodAnalysis TimePerformed AtPathologist SignatureColor, UAAmberClarity, UAClearGlucose, UANegativeNegative - 2000(110) ++++ mg/dLBilirubin, UANegativeNegative - 4(70) +++ mg/dLKetones, UANegative Negative - 160(16) ++++ mg/dLSpec Grav, UA1.0151 - 1.03Blood, UANegative Negative - 50 Edin/mcLpH, UA6.05 - 9Protein, UANegativeNegative - 2000(20) ++++ mg/dLUrobilinogen, UA1.00.2 - 12 mg/dLLeukocytes, UAPositiveNegative - 500+++ Tiffany/mcLNitrite, UANegativeNegative - PositiveSpecimen (Source)Anatomical Location / LateralityCollection Method / VolumeCollection TimeReceived Time Urine02/20/2025 10:58 AM EST Narrative Authorizing ProviderResult TypeResult StatusCorey Lalitha DOPOINT OF CARE TEST ENTER/EDIT ORDERABLESFinal Result documented in this encounter Visit Diagnoses Diagnosis 29 weeks gestation of ([facility]) Third trimester ([facility]) state, incidental Pruritus Unspecified pruritic disorder Vasovagal episode Syncope and collapse size inconsistent with dates ([facility]) documented in this encounter Care Teams Team MemberRelationshipSpecialtyStart DateEnd Date Emery Flood MD [address] [place] [address] PCP - GeneralGeneral Rorlpwps99/10/24documented as of this encounter
--- OUTSIDE RECORDS SUMMARY | 2025-03-06 08:47 | XMS_ITS | Clinical Summary ---
Author Organization [facility] Address [address] [place] [address] Care Team Providers Care Spring Coiler Name Role Phone Emery Flood MD Primary Care Provider Allergies No known active allergies Medications No known medications Active Problems ProblemNoted DateDiagnosed DateVasovagal pypqbna4910/16/20245635Dcuyvxehmq75/06/2025 Encounter for supervision of normal first in first trimester ([facility]) 09/14/2024Missed xkmzfi4808/30/2024Estimated Date of DeliveryCommentsYes 05/04/2025ased on Ultrasound Encounters DateTypeDepartmentCare WxehRoxqhnwarrv99/19/9480Itpiss33/12/2025 10:50 AM [place] [address] Morro Doty DO 29 weeks gestation of ([facility]); Third trimester ([facility]); Pruritus; Vasovagal episode; size inconsistent with dates ([facility])02/20/2025amboo [place] [address] Morro Doty DO 02/13/20254505Dzgwdv70/29/2025 9:20 AM [place]TRout[place] [address] Sunshine Mclean PA Second trimester ([facility]); 27 weeks gestation of ([facility])02/06/2025amboo flowsheet [facility] [address] [place] [address] Sunshine Mclean PA 01/30/20254087Moorhq35/20/2025 3:40 PM EDTOffice Visit [facility] [place] [facility] [address] [place] [address] Whit Lucero PA Melanocytic nevus of left upper extremity (Primary Dx); Melanocytic nevus, unspecified arqaqtkv17/20/2025amboo flowsheet [facility] [place] [facility] [address] [place] [address] Whit Lucero PA 01/28/20257322Shnppm96/16/6509Httqxa10/14/2025linisync Result Encounter [facility] External Department Unsolicited Apurva Sainz NP 01/15/2025 10:30 AM EDTRoutine [facility] [address] [place] [address] Apurva Sainz NP 24 weeks gestation of ([facility]); Second trimester ([facility]); Diabetes mellitus screening; Wxpiehli89/07/2025amboo flowsheet [facility] [address] [place] [address] Apurva Sainz NP 01/08/20252910Fauooy51/08/2025 9:20 AM EDTRoutine [facility] [address] [place] [address] Apurva Sainz NP Second trimester ([facility]); 20 weeks gestation of ([facility]); Vasovagal lhfjguo0712/17/2024 8:00 AM EDTAncillary Procedure [facility] [address] [place] [address] Screening, , for anatomic survey ([facility])12/10/2024Travelfrom Last 3 Months Social History Tobacco UseTypesPacks/DayYears UsedDateSmoking Tobacco: Never Assessed Estimated Date of JiezjrfeAaeiivlxScy90/24/2026ased on UltrasoundSex and Gender InformationValueDate RecordedSex Assigned at KvgemTquzun38/14/2024 1:04 PM EDT Legal LjuQjtosm09/15/2023 11:49 PM EDTGender XmnojpgeBwtamx56/14/2024 1:04 PM EDTSexual XlfoygxxancXpdnozdf83/14/2024 1:04 PM EDT Last Filed Vital Signs Vital SignReadingTime TakenCommentsBlood Kvcwslrg161/6802/20/2025 10:54 AM EST Pulse--Temperature--Respiratory Rate--Oxygen Saturation--Inhaled Oxygen Concentration--Oxmqyk50.9 kg (193 lb 12.8 oz)02/20/2025 10:54 AM PCRNejaoo851.6 cm (5' 4 )08/24/2023 9:07 AM EDTBody Mass Index33.27008/24/2023 9:07 AM EDT Plan of Treatment DateTypeDepartmentCare Team (Latest Contact Info)Tyobivrfdqd61/26/2025 9:00 AM ESTAncillary Procedure [facility] [address] [place] [address] [place] [address] 03/06/2025 9:40 AM ESTRoutine [facility] [address] [place] [address] [place] [address] Sunshine Mclean PA [address] [place] [address] Procedures Procedure NamePriorityDate/TimeAssociated DiagnosisCommentsPOCT URINALYSIS WAHSJSWCCodywgs13/12/2025 10:58 AM EST 29 weeks gestation of ([facility]) Third trimester ([facility]) CBC (INCLUDES DIFF/PLT)Afcjhcc1902/06/2025 10:09 AM EDT Pruritus BILE ACIDS, COUNZXjhqqwh82/29/2025 10:09 AM EDT Pruritus YIHUunvvfg29/29/2025 10:09 AM EDT Pruritus HEPATIC FUNCTION FHYCNCjcxbax40/29/2025 10:09 AM EDT Pruritus HEPATITIS C QYUHGBYSHprkvmx47/29/2025 10:09 AM EDT Pruritus GLUCOSE TOLERANCE, 1 JILXYmsgell71/29/2025 10:09 AM EDT Diabetes mellitus screening VSUJexlzhx98/29/2025 10:09 AM EDT Diabetes mellitus screening POCT URINALYSIS LYMXWGVTGiipppl15/29/2025 9:51 AM EDT 27 weeks gestation of ([facility]) [facility] BILE ACIDS FRACT HYYIwmpwhl45/14/2025 11:50 AM EDT ALL HEPATITIS C YSJrrxqhx33/14/2025 11:50 AM EDT ALL CBC WITH AUTO MILDGipzkvp86/14/2025 11:50 AM EDT POCT URINALYSIS JEIUFBATEplfbls97/07/2025 10:43 AM EDT 24 weeks gestation of ([facility]) POCT URINALYSIS GZKABBHPBqmwiod13/08/2025 9:15 AM EDT Second trimester ([facility]) US OB 14+ WEEKS ANATOMY GIMABuualni72/08/2025 8:58 AM EDT Screening, , for anatomic survey ([facility]) from Last 3 Months Results * (ABNORMAL) POCT urinalysis dipstick manually resulted (02/20/2025 10:58 AM EST) Only the most recent of4 resultswithin the time period is included. ComponentValueRef RangeTest MethodAnalysis TimePerformed AtPathologist Signature Color, UAAmberClarity, UAClearGlucose, UANegativeNegative - 2000(110) ++++ mg/dL Bilirubin, UANegativeNegative - 4(70) +++ mg/dLKetones, UANegativeNegative - 160(16) ++++ mg/dLSpec Grav, UA1.0151 - 1.03Blood, UANegativeNegative - 50 Edin/mcLpH, UA6.05 - 9Protein, UANegativeNegative - 2000(20) ++++ mg/dL Urobilinogen, UA1.00.2 - 12 mg/dLLeukocytes, UAPositiveNegative - 500+++ Tiffany/mcL Nitrite, UANegativeNegative - PositiveSpecimen (Source)Anatomical Location / LateralityCollection Method / VolumeCollection TimeReceived LfekPohlo28/12/2025 10:58 AM EST Narrative Authorizing ProviderResult TypeResult StatusMorro Doty DOPOINT OF CARE TEST ENTER/EDIT ORDERABLESFinal Result * Hepatitis C antibody (02/06/2025 10:09 AM EDT)Specimen (Source)Anatomical Location / LateralityCollection Method / VolumeCollection TimeReceived Time BloodVenous blood specimen / Unknown Narrative Authorizing ProviderResult TypeResult StatusApurva Ontodia BLOOD ORDERABLESFinal ResultPerforming OrganizationAddressCity/State/ZIP CodePhone Number EXTERNAL LAB * Bile acids, total (02/06/2025 10:09 AM EDT)Specimen (Source)Anatomical Location / LateralityCollection Method / VolumeCollection TimeReceived Time BloodVenous blood specimen / Unknown Narrative Authorizing ProviderResult TypeResult StatusJonnathanvelia Ontodia BLOOD ORDERABLESEdited Result - FinalPerforming OrganizationAddressty/State/ZIP Code Phone Number EXTERNAL LAB * Glucose tolerance, 1 hour (02/06/2025 10:09 AM EDT)Specimen (Source)Anatomical Location / LateralityCollection Method / VolumeCollection TimeReceived Time BloodVenous blood specimen / Unknown Narrative Authorizing ProviderResult TypeResult StatusRallyhood BLOOD ORDERABLESFinal ResultPerforming OrganizationAddressCity/State/ZIP CodePhone Number EXTERNAL [...] / Unknown Narrative Authorizing ProviderResult TypeResult StatusApurva Pierreerly NPLAB BLOOD ORDERABLESFinal ResultPerforming OrganizationAddressCity/State/ZIP CodePhone Number EXTERNAL LAB * [facility] BILE ACIDS FRACT BLD (01/22/2025 11:50 AM EDT)ComponentValueRef RangeTest MethodAnalysis TimePerformed AtPathologist SignatureBILE ACIDS9.90.0 - 10.0 umol/LTBHComment: Performed at: ??BN - [facility] [address] ??[id number] School Bus Operator: Sina Ponce MD, Phone: ??[phone] Specimen (Source)Anatomical Location / LateralityCollection Method / Volume Collection TimeReceived Time01/22/2025 11:50 AM EDT1 12:00 PM EDT Narrative CLINISYNC - 01/23/2025 8:08 PM EDT Authorizing ProviderResult TypeResult StatusApurva Sainz [facility]ITALLINISYNCFinal ResultPerforming OrganizationAddressCity/State/ZIP CodePhone Number [facility] * ALL HEPATITIS C AB (01/22/2025 11:50 AM EDT)ComponentValueRef RangeTest Method Analysis TimePerformed AtPathologist SignatureHCV ANTIBODYNon ReactiveNon ReactiveTBHComment: HCV antibody alone does not differentiate between previously resolved infection and active infection. Equivocal and Reactive HCV antibody results should be followed up with an HCV RNA test to support the diagnosis of active HCV infection. Performed at: ?? - [facility] [address] ??[id number] School Bus Operator: Rene Campoverde PhD, Phone: ??[phone] Specimen (Source)Anatomical Location / LateralityCollection Method / Volume Collection TimeReceived Time01/22/2025 11:50 AM EDT1 12:00 PM EDT Located Within [facility] - 01/23/2025 7:08 AM EDT Authorizing ProviderResult TypeResult StatusApurva Sainz [facility]ITALLINISYNov[facility] ResultPerforming OrganizationAddressty/State/ZIP CodePhone Number [facility] * (ABNORMAL) ALL CBC WITH AUTO DIFF (01/22/2025 11:50 AM EDT)ComponentValueRef RangeTest MethodAnalysis TimePerformed AtPathologist SignatureTBH WBC11.6(H) 4.0 - 11.0 10 3/uLTBHTBH RBC3.81(L)4.20 - 5.40 10 6/uLTBHTBH HGB12.212.0 - 16.0 g/dLTBHTBH HCT35.8(L)36.0 - 48.0 %TBHTBH MCV94.081.0 - 99.0 fLTBHTBH MCH 32.026.7 - 34.0 pgTBHTBH MCHC34.129.9 - 35.2 g/dLTBHTBH RDW12.411.0 - 15.0 % TBHTBH GBA009662 - 450 10 3/uLTBHTBH MPV10.09.5 - 13.5 fLTBHNEUTROPHILS PERCENT AUTO76.8(H)43.0 - 75.0 %TBHLYMPHOCYTES PERCENT AUTO15.1(L)20.5 - 60.0 %TBHMONOCYTES PERCENT AUTO6.21.7 - 12.0 %TBHTBH EO %1.00.9 - 7.0 %TBHBASOPHILS PERCENT AUTO0.40.2 - 2.0 %TBHIMMATURE GRANULOCYTES PCT AUTO0.50.0 - 0.5 %TBH NEUTROPHILS ABSOLUTE AUTO8.9(H)1.4 - 6.5 10 3/uLTBHLYMPHOCYTES ABSOLUTE AUTO 1.71.2 - 3.8 10 3/uLTBHMONOCYTES ABSOLUTE AUTO0.70.3 - 0.8 10 3/uLTBHTBH EO # 0.10.0 - 0.7 10 3/uLTBHBASOPHILS ABSOLUTE AUTO0.10.0 - 0.1 10 3/uLTBHIMMATURE GRANULOCYTES ABS AUTO0.06(H)0.00 - 0.03 10 3/uLTBHSpecimen (Source)Anatomical Location / LateralityCollection Method / VolumeCollection TimeReceived Time 01/22/2025 11:50 AM EDT1 12:00 PM EDT Narrative CLINISYNC - 01/22/2025 12:30 PM EDT Authorizing ProviderResult TypeResult StatusKrvelia Sainz NPCLINISYNCFinal ResultPerforming OrganizationAddressCity/State/ZIP CodePhone Number [facility] * US OB 14+ weeks anatomy scan [...] Live Hernandez MD Authorizing ProviderResult TypeResult StatusAmy Caridad JAIME OB US PROCEDURES Final Result from Last 3 Months Insurance Care Teams Team MemberRelationshipSpecialtyStart DateEnd Date Emery Flood MD [address] [place] [address] PCP - GeneralGeneral Avjpfzet45/10/24
--- OUTSIDE RECORDS SUMMARY | 2025-03-06 08:47 | XMS_ITS | Encounter Summary ---
Author Organization [facility] Address [address] [place] [address] Care Team Providers Care Assistant Attorney General Name Role Phone Emery Flood MD Primary Care Provider [phone] Encounter Details DateTypeDepartmentCare Team (Latest Contact Info)Vtjgwiyymrt43/12/2025amboo flowsheet [facility] [address] [place] [address] Morro Doty DO [address] [place], [place] [address] Social History Tobacco UseTypesPacks/DayYears UsedDateSmoking Tobacco: Never Assessed Estimated Date of TftructcMhsbjesiFlf49/24/2026ased on UltrasoundSex and Gender InformationValueDate RecordedSex Assigned at KmqrbGfvrsw96/14/2024 1:04 PM EDT Legal VfyYuggzs25/15/2023 11:49 PM EDTGender VqxjbxzyTnadfu72/14/2024 1:04 PM EDTSexual OqqqbbvirgrAntcizfj41/14/2024 1:04 PM EDTdocumented as of this encounter Plan of Treatment DateTypeDepartmentCare Team (Latest Contact Info)Qjoucsjvweb86/26/2025 9:00 AM ESTAncillary Procedure [facility] [address] [place] [address] 03/06/2025 9:40 AM ESTRoutine [facility] [address] [address] Sunshine Mclean PA [address] [place] [address] documented as of this encounter Visit Diagnoses Not on filedocumented in this encounter Care Teams Team MemberRelationshipSpecialtyStart DateEnd Date Emery Flood MD [address] [place] [address] PCP - GeneralGeneral Payibpfp53/10/24documented as of this encounter
--- OUTSIDE RECORDS SUMMARY | 2025-03-06 08:47 | XMS_ITS | Encounter Summary ---
Author Organization [facility] Address [address] [place] [address] Care Team Providers Care Stopboard Assembler Name Role Phone Emery Flood MD Primary Care Provider Encounter Details DateTypeDepartmentCare Team (Latest Contact Info)Dslrbhegieh17/19/2025Travel Social History Tobacco UseTypesPacks/DayYears UsedDateSmoking Tobacco: Never Assessed Estimated Date of IbdvtdrzPloolxilGrt59/24/2026ased on UltrasoundSex and Gender InformationValueDate RecordedSex Assigned at RwazhGwuhud66/14/2024 1:04 PM EDT Legal NmrCietbm53/15/2023 11:49 PM EDTGender PlgkdnzjBqqqhw03/14/2024 1:04 PM EDTSexual SyueovkzopqPggozjjs64/14/2024 1:04 PM EDTdocumented as of this encounter Plan of Treatment DateTypeDepartmentCare Team (Latest Contact Info)Hdaixjpltid64/26/2025 9:00 AM ESTAncillary Procedure [facility] [address] [place] [address] 03/06/2025 9:40 AM ESTRoutine [facility] [address] [place] [address] Sunshine Mclean PA [address] [facility] [address] [facility] [address] [place], [place] [address] documented as of this encounter Visit Diagnoses Not on filedocumented in this encounter Care Teams Team MemberRelationshipSpecialtyStart DateEnd Date Emery Flood MD [address] [place] [address] PCP - GeneralGeneral Dcoylahx94/10/24documented as of this encounter
--- OUTSIDE RECORDS SUMMARY | 2025-03-06 08:47 | XMS_ITS | Clinical Summary ---
Author Organization [facility] Address [address], [address] [place] [address] Care Team Providers Care Aircraft Detail Draftsperson Name Role Phone Emery Flood DO Primary Care Provider [phone] Allergies No known active allergies Medications No known medications Active Problems ProblemNoted DateDiagnosed McagZfwejsf92/10/2021ystolic agnler7308/18/2020 Resolved Problems ProblemNoted DateDiagnosed DateResolved UlwaTpxyyak27/10/202112/08/2023 Epigastric cwryrgxzwj02/10/202112/08/2023 Family History Medical HistoryRelationNameCommentsHeart AttackFatherDadRelationNameStatus CommentsFatherDad Social [...] heating?Not hard at all09/29/2023 PHQ-2AnswerDate RecordedPHQ-9 Total Uopqv271Hunger Vital SignAnswerDate RecordedWithin the past 12 months, [...] steady place to sleep or slept in laughlinelter (including now)?No09/29/2023Food InsecurityAnswerDate RecordedWithin the past 12 [...] Last Filed Vital Signs Vital SignReadingTime TakenCommentsBlood Tspbvygw745/7603/15/2024 9:25 AM EST Idcix593003/15/2024 9:25 AM DIICzzrfadbtvc16.4 ??C (97.6 ??F)03/15/2024 9:25 AM ESTRespiratory Segl272308/18/2020 12:59 PM EDTOxygen Dcstkzhgrp22%03/15/2024 9:25 AM ESTInhaled Oxygen Concentration--Eqvbvt17.3 kg (174 lb 12.8 oz)03/15/2024 9:25 AM TXJJxkwve333.6 cm (5' 4 )03/15/2024 9:25 AM ESTBody Mass Index30 03/15/2024 9:25 AM EST Plan of Treatment Health MaintenanceDue DateLast DoneCommentsVaricella vaccine (1 of 2 - 13+ 2- dose series)10/29/2011HIV dudzlo1910/28/2013HPV vaccine (1 - 3-dose series) 2013Hepatitis C cxwmly1410/28/2016DTaP/Tdap/Td vaccine (1 - Tdap)2017 Hepatitis B vaccine (1 of 3 - 19+ 3-dose series)2017Pap smear10/29/2019 Depression Udgmbe77/Flu vaccine (#1)11/09/2024OVID-19 Vaccine ( - 2023- season)2024Hepatitis [...] MemberRelationshipSpecialtyStart DateEnd Date Emery Flood DO [address] [place] [address] [facility]09/29/23
--- OUTSIDE RECORDS SUMMARY | 2025-03-06 08:53 | XMS_ITS | CCD ---
Author Organization [facility] CliniSypr Care Team Providers Care Engineering Test Specialist Name Role Phone Community, Outreach Attending Provider [...] Admitting Unavaila ble Anthony Flood Consulting Unavailable CollyerAnthony Consulting Unavailable CollyerAnthony tristan Consulting Unavailable Anthony Flood Consulting Unavailable Anthony Flood Consulting Unavailable Anthony Flood Consulting Unavailable Anthony Flood Consulting Unavailable CollyerAnthony Consulting Unavailable CollyerAnthony Consulting Unavailable [facility] Cardio, XXXX Consulting Unavailable Jenna BA Primary Care Physician [phone] Irasema Franco Unavailable Unavailable Kai Mcrae Admitting Unavailable BetaarielleorBenjamin Consulting Unavailable Moses Smith Attending Unavailable Benjamin Flores Consulting Unavailable Benjamin Flores Consulting Unavailable Anthony Flood Consulting Unavailable MD Anthony Flood Unavailable CollyerAnthony Consulting Unavailable CollyerAnthony Consulting Unavailable CollyerAnthony Consulting Unavailable CollyerAnthony Consulting Unavailable Collyer, Anthony Consulting Unavailable Collyer, Anthony Consulting Unavailable Collyer, Anthony Consulting Unavailable [facility] Cardio, XXXX Consulting Unavailable MD Kai Mcrae Admitting Unavaila ble Jenna Ba DO Primary Care Provider JENNA BA Attending Unavailable JENNA BA Referring Unavailable JENNA BA Primary Care Unavailable Jenna Ba MD Primary Care Provider Jenna Ba MD Primary Care Provider CARIDAD, SUNSHINE Attending Unavailable CARIDAD, SUNSHINE Referring Unavailable LALITHAKATHERINY Attending Unavailable CARIDAD, SUNSHINE Attending Unavailable CARIDAD, SUNSHINE Attending Unavailable EMELI, WALTER Attending Unavailable EMELI, WALTER Attending Unavailable MARCOS LUCERO Attending Unavailable CARIDAD, SUNSHINE Attending Unavailable LALITHA, MORRO Attending Unavailable Problems Active Problems Problem ClassificationProblemDateDocumented DateEpisodic/ChronicCardiac dysrhythmias (2 sources)Palpitations; Translations: [Palpitations]Onset: EpisodicDiseases of white blood cells (1 source)Leukocytosis; Translations: [Elevated white blood cell count, unspecified]Onset: 69-70-6655JwtedtqPemylzhzpebec and screening for infectious disease (3 sources)Encounter for screening for human papillomavirus (HPV); Translations: [Patient encounter status]Onset: 590419-18-8659NkxvgwoiAobqwetkv disorders (20 sources)Irregular menstruation, unspecified; Translations: [Missed period] Onset: 757337-17-2231FmytxclWgbrbod (2 sources)Mycosis; Translations: [Candidiasis, unspecified]09-49-1930Szhjcbvh Nonspecific chest pain (1 source)Chest wall pain; Translations: [Other chest pain]25-01-6869Guscszkd Other and unspecified benign neoplasm (1 source)Melanocytic nevus of left upper limb; Translations: [Melanocytic nevi of left upper limb, includingshoulder]79-77-5709GlyqcqmyRmksb and unspecified benign neoplasm (1 source)Melanocytic nevus; Translations: [Melanocytic nevi, unspecified] 90-15-3619ZihxjwndAqivj circulatory disease (1 source)Low blood pressure; Translations: [Hypotension, unspecified]Onset: 04-53-6941PkolprxgNrtod circulatory disease (1 source)Postural orthostatic tachycardia syndrome ; Translations: [Postural orthostatic tachycardia syndrome [POTS]]Onset: 72-86-8006HklsktddDrlgt circulatory disease (1 source)Orthostatic hypotension; Translations: [Orthostatic hypotension]Onset: 38-81-0661YacqhbezChcsc complications of (2 sources) size does not accord with dates; Translations: [Uterine size- date discrepancy, unspecified trimester]93-08-1416NxqdyunpFhkop endocrine disorders (4 sources)Polycystic ovarian syndrome; Translations: [POLYCYSTIC OVARIAN SYNDROME]Onset: 14-26-5727HwbkjhmBvizu inflammatory condition of skin (4 sources)Pruritus, unspecified; Translations: [Unspecified pruritic disorder] 84-18-7211RlfhenusXafhy nutritional; endocrine; and metabolic disorders (1 source)Body mass index 30+ - ltgrizq16-30-1784LeijrgaPdvdr nutritional; endocrine; and metabolic disorders (1 source)Simple vbwrovs65-28-7332WxasfhoIbsfi nutritional; endocrine; and metabolic disorders (1 source)Obesity; Translations: [Obesity, unspecified]Onset: 08-18-2020 07-56-4231HmjguujUhtkm and delivery including normal (20 sources); Translations: [Encounter for supervision of normal , unspecified, unspecified trimester]Onset: EpisodicOther screening for suspected conditions (not mental disorders or infectious disease) (10 sources)Encounter for screening for malignant neoplasm of cervix; Translations: [Alpha-fetoprotein blood test status]Onset: 98-27-0892Tessjvzz Residual codes; unclassified (1 source)Gestation period, 6 weeks; Translations: [Less than 8 weeks gestation of ]75-65-9900EwhbjxyfAnyawgbx codes; unclassified (2 sources)Gestation period, 11 weeks; Translations: [11 weeks gestation of ]91-69-4295CcusjqysQsjxuskz codes; unclassified (2 sources)Gestation period, 14 weeks; Translations: [14 weeks gestation of ]10-29-0218WglaauaoEkjnftvj codes; unclassified (2 sources)Gestation period, 15 weeks; Translations: [15 weeks gestation of ]28-99-2335VbkxrvgkNnpglbam codes; unclassified (2 sources)Gestation period, 20 weeks; Translations: [20 weeks gestation of ]64-27-3616DicczfliYfrfzhzz codes; unclassified (2 sources)Gestation period, 24 weeks; Translations: [24 weeks gestation of ]35-59-6305JzvfmjcoWeanazab codes; unclassified (2 sources)Gestation period, 27 weeks; Translations: [27 weeks gestation of ]29-04-9103TiyobunwAjfpimzp codes; unclassified (2 sources)Gestation period, 29 weeks; Translations: [29 weeks gestation of ]45-22-5188OxxoewasPxdulti (20 sources)Syncope and collapse; Translations: [Syncope and collapse]Onset: 19-60-0636ZxllkdqfNizauvvivabe (1 source)Patient encounter ytzkjn54-35-7005 Past or Other Problems Problem ClassificationProblemDateDocumented DateEpisodic/ChronicAbdominal pain (3 sources)Abdominal pain; Translations: [Unspecified abdominal pain]Onset: 08-18-2020 Resolved: 25-92-5991WwmgnpygKccgx valve disorders (2 sources)Systolic murmur; Translations: [Cardiac murmur, unspecified]Onset: 813098-97-8055BmmfriunExcxp gastrointestinal disorders (2 sources)Burping; Translations: [Eructation]Onset: 08-18-2020 Resolved: 593708-70-0776Xjohcdiv Results Test NameValueInterpretationReference RangeFacilityUrinalysis macro (dipstick) panel (U)on 38-35-0645Aysfytvwd, UANegativeNegative - 4(70) +++ mg/dLNOMS HealthcareBlood, UANegativeNegative - 50 Edin/mcLNOMS HealthcareClarity, UAClear NOMS HealthcareColor, UAAmberNOMS HealthcareGlucose, UANegativeNegative - 2000(110) ++++ mg/dLNOMS HealthcareInterpretation and review of laboratory resultsAbnormalNOMS HealthcareKetones, UANegativeNegative - 160(16) ++++ mg/dL NOMS HealthcareLeukocytes, UAPositiveNegative - 500+++ Tiffany/mcLNOWA Healthcare Nitrite, UANegativeNegative - PositiveNOMS HealthcarepH, UA6.05 - 9NOMS HealthcareProtein, UANegativeNegative - 2000(20) ++++ mg/dLNOMS HealthcareSpec Grav, UA1.0151 - 1.03NOMS HealthcareUrobilinogen, UA1.00.2 - 12 mg/dLNOMS HealthcareNOMS HealthcareUrinalysis macro (dipstick) panel (U)on 02-06-2025 Bilirubin, UANegativeNegative - 4(70) +++ mg/dLNOMS HealthcareBlood, UANegative Negative - 50 Edin/mcLNOMS HealthcareClarity, UAClearNOMS HealthcareColor, UA YellowNOMS HealthcareGlucose, UANegativeNegative - 2000(110) ++++ mg/dLNOWA HealthcareInterpretation and review of laboratory resultsAbnormalNOWA Healthcare Ketones, UANegativeNegative - 160(16) ++++ mg/dLNOMS HealthcareLeukocytes, UA3+ Negative - 500+++ Tiffany/Neponsit Beach HospitalNOWA HealthcareNitrite, UANegativeNegative - Positive NOMS HealthcarepH, UA7.55 - 9NOMS HealthcareProtein, UANegativeNegative - 2000(20) ++++ mg/dLNOMS HealthcareSpec Grav, UA1.0101 - 1.03NOWA Healthcare Urobilinogen, UA1.00.2 - 12 mg/dLNOMS HealthcareNOMS HealthcareALL CBC WITH AUTO DIFFon 20-60-4506OHOULUONN ABSOLUTE AUTO0.1NOMS HealthcareBasophils/100 WBC (Bld)0.4 %0.2 - 2.0 %NOMS HealthcareEosinophils/100 WBC (Bld)1.0 %0.9 - 7.0 % NOMS HealthcareErythrocyte distribution width (RBC) [Ratio]12.4 %11.0 - 15.0 % NOMS HealthcareHematocrit (Bld) [Volume fraction]35.8 %Low36.0 - 48.0 %NOMS HealthcareHemoglobin (Bld) [Mass/Vol]12.2 g/dL12.0 - 16.0 g/dLPhelps Health IMMATURE GRANULOCYTES ABS AUTO0.06HighPhelps HealthImmature granulocytes/100 WBC (Bld)0.5 %0.0 - 0.5 %Phelps HealthInterpretation and review of laboratory resultsAbnormalPhelps HealthLYMPHOCYTES ABSOLUTE AUTO1.7NOSaint John's Saint [facility] Hospital Lymphocytes/100 WBC (Bld)15.1 %Low20.5 - 60.0 %[facility] CenterH (RBC) [Entitic mass]32.0 pg26.7 - 34.0 pgRusk Rehabilitation CenterHC (RBC) [Mass/Vol]34.1 g/dL29.9 - 35.2 g/dLRusk Rehabilitation CenterV (RBC) [Entitic vol]94.0 fL81.0 - 99.0 fLPhelps HealthMONOCYTES ABSOLUTE AUTO0.7NOSaint John's Saint Francis HospitalMonocytes/100 WBC (Bld)6.2 % 1.7 - 12.0 %[facility]ps HealthNEUTROPHILS ABSOLUTE AUTO8.9HighPhelps Health Neutrophils/100 WBC (Bld)76.8 %High43.0 - 75.0 %[facility]ps HealthPlatelet mean volume (Bld) [Entitic vol]10.0 fL9.5 - 13.5 fLPhelps HealthTB EO #0.1NOMS [facility] CenterTB YLD684YXFKSaint John's Saint Francis HospitalTB RBC3.81LowNOWashington [facility] Medical Center WBC11.6High Phelps HealthCLINISYNCNCox MonettUrinalysis macro (dipstick) panel (U)on 77-63-5606Qnmaqhnrb, UANegativeNegative - 4(70) +++ mg/dLSHRINERS HOSPITALS FOR CHILDREN HealthcareBlood, UANegativeNegative - 50 Edin/mcLNOMS HealthcareClarity, UAClearNOWA Healthcare Color, UAYellowNOWA HealthcareGlucose, UANegativeNegative - 2000(110) ++++ mg/dL [facility] HealthInterpretation and review of laboratory resultsAbnormalSHRINERS HOS[facility]ITALS FOR CHILDREN HealthcareKetones, UANegativeNegative - 160(16) ++++ mg/dLPhelps Health Leukocytes, UA1+Negative - 500+++ Tiffany/mcLNOMS HealthcareNitrite, UANegative Negative - PositiveNOWA HealthcarepH, UA6.55 - 9NOMS HealthcareProtein, UA NegativeNegative - 1999(20) ++++ mg/dLNOMS HealthcareSpec Grav, UA1.0151 - 1.03 NOMS HealthcareUrobilinogen, UA2.00.2 - 12 mg/dLNOMS HealthcareNOMS HealthcareUS OB 14+ WEEKS ANATOMY SCANon 68-12-4759HC OB 14+ WEEKS ANATOMY SCANFINDINGS: A single, [...] Delivery: 05/04/25 Gestational Age as of 11/13/2024: 12w7wEaiieubbmq macro (dipstick) panel (U)on 80-08-3560Utawqobux, UANegativeNegative - 4(70) +++ mg/dLNOMS HealthcareBlood, UANegativeNegative - 50 Edin/mcLNOMS HealthcareClarity, UAClearNOMS Healthcare Color, UAYellowNOMS HealthcareGlucose, UANegativeNegative - 1999(110) ++++ mg/dL NOMS HealthcareInterpretation and review of laboratory resultsAbnormalNOMS HealthcareKetones, UANegativeNegative - 160(16) ++++ mg/dLNOMS Healthcare Leukocytes, UA3+Negative - 500+++ Tiffany/mcLNOMS HealthcareNitrite, UANegative Negative - PositiveNOMS HealthcarepH, UA65 - 9NOMS HealthcareProtein, UANegative Negative - 1999(20) ++++ mg/dLNOMS HealthcareSpec Grav, UA1.0151 - 1.03NOMS HealthcareUrobilinogen, UA1.00.2 - 12 mg/dLNOMS HealthcareNOMS Healthcare Urinalysis macro (dipstick) panel (U)on 69-87-8827Lshphnebh, UANegativeNegative - 4(70) +++ mg/dLNOMS HealthcareBlood, UANegativeNegative - 50 Edin/mcLNOMS HealthcareClarity, UAClearNOMS HealthcareColor, UAYellowNOMS HealthcareGlucose, UANegativeNegative - 1999(110) ++++ [...] HealthcarepH, UA65 - 9NOMS HealthcareProtein, UANegativeNegative - 2000(20) ++++ mg/dLNOMS HealthcareSpec Grav, UA1.011 - 1.03N[facility] Healthcare Urobilinogen, UA0.20.2 - 12 mg/dLNOMS HealthcareNOMS HealthcareUrinalysis macro (dipstick) panel (U)on 53-39-4828Cmyqwibml, UANegativeNegative - 4(70) +++ mg/dL NOMS HealthcareBlood, UANegativeNegative - 50 Edin/mcLNOMS HealthcareClarity, UA ClearNOMS HealthcareColor, UAYellowNOMS HealthcareGlucose, UANegativeNegative - 2000(110) ++++ mg/dLNOWA HealthcareInterpretation and review of laboratory resultsNormalNOMS HealthcareKetones, UANegativeNegative - 160(16) ++++ mg/dLNOMS HealthcareLeukocytes, UANegativeNegative - 500+++ Tiffany/mcLNOMS HealthcareNitrite, UANegativeNegative - PositiveNOMS HealthcarepH, UA85 - 9NOMS HealthcareProtein, UANegativeNegative - 2000(20) ++++ mg/dLNOMS HealthcareSpec Grav, UA1.011 - 1.03 NOMS HealthcareUrobilinogen, UA0.20.2 - 12 mg/dLNOWA HealthcareNOWA Healthcare ALL CBC WITH AUTO DIFFon 17-31-9858YGNLVIYRV ABSOLUTE AUTO0.1NOMS Healthcare Basophils/100 WBC (Bld)0.5 %0.2 - 2.0 %NOMS HealthcareEosinophils/100 WBC (Bld) 1.3 %0.9 - 7.0 %NOMS HealthcareErythrocyte distribution width (RBC) [Ratio]11.9 %11.0 - 15.0 %NOMS HealthcareHematocrit (Bld) [Volume fraction]38.6 %36.0 - 48.0 %NOMS HealthcareHemoglobin (Bld) [Mass/Vol]12.9 g/dL12.0 - 16.0 g/dLNOWA HealthcareIMMATURE GRANULOCYTES ABS AUTO0.03NOWA HealthcareImmature granulocytes/100 WBC (Bld)0.2 %0.0 - 0.5 %NOM HealthcareInterpretation and review of laboratory resultsAbnormalNOMS HealthcareLYMPHOCYTES ABSOLUTE AUTO2.9 NOMS HealthcareLymphocytes/100 WBC (Bld)23.1 %20.5 - 60.0 %Phelps HealthMCH (RBC) [Entitic mass]31.4 pg26.7 - 34.0 pgNOWA HealthcareHC (RBC) [Mass/Vol] 33.4 g/dL29.9 - 35.2 g/dLNOWA HealthcareMCV (RBC) [Entitic vol]93.9 fL81.0 - 99.0 fLNOWA HealthcareMONOCYTES ABSOLUTE AUTO0.8NOWA HealthcareMonocytes/100 WBC (Bld)6.5 %1.7 - 12.0 %NOM HealthcareNEUTROPHILS ABSOLUTE AUTO8.7HighNOWA HealthcareNeutrophils/100 WBC (Bld)68.4 %43.0 - 75.0 %NOM HealthcarePlatelet mean volume (Bld) [Entitic vol]9.9 fL9.5 - 13.5 fLNOWA HealthcareTBH EO #0.2NOMS HealthcareTBH [id number] [facility] CenterTB RBC4.11LowNOSaint John's Saint Francis HospitalTB WBC12.7High [facility] HealthcareCLINISYNCNOMS HealthcareHCG ( test) Ql (U)on 09-14-2024 Interpretation and review of laboratory resultsAbnormalNOWA HealthcarePreg Test, UrPositiveNegativeNO[facility] HealthcareUS OB TRANSVAGINALon 09-14-2024 [place] [address] Ultrasound Report Signed Patient: JYOTI TORRES MR#: [id number] : 2000 Acct:[id number] Age/Sex: 23 / F ADM Date: 09/14/24 Loc: US Attending Dr: Morro Doty D.O. Ordering Physician: Morro Doty D.O. Date of Service: 09/14/24 Procedure(s): US OB transvaginal Accession Number(s): [id number] cc: Morro Doty D.O.; JENNA BA [place] [id number] Patient Name: JYOTI TORRES MRN: [id number] date: 2000 Sex: F Assigned Patient Location: US Current Patient Location: US Accession/Order Number: [id number] Exam Date: 09/14/2024 11:08 Report Date: 09/14/2024 [...] Sherwood M.D. 09/14/2024 11:11 AM Dictation Location: [place] [address] Electronically authenticated by: [id number] Y Date: 09/14/2024 11:11 Dictated By: Анна Sherwood M.D. Signed By: 09/14/24 1114 DD/ 1111 TD/TT: Table Operator:SOHAILadiology, Radiologist, - 09/14/2024 [place] [address] Ultrasound Report Signed Patient: JYOTI TORRES MR#: [id number] : 2000 Acct:[id number] Age/Sex: 23 / F ADM Date: 09/14/24 Loc: US Attending Dr: Morro Doty D.O. Ordering Physician: Morro Doty D.O. Date of Service: 09/14/24 Procedure(s): US OB transvaginal Accession Number(s): [id number] cc: Morro Doty D.O.; JENNA BA [place] [address] Patient Name: JYOTI TORRES MRN: [id number] date: 2000 Sex: F Assigned Patient Location: US Current Patient Location: US Accession/Order Number: [id number] Exam Date: 09/14/2024 11:08 Report Date: 09/14/2024 [...] Sherwood M.D. 09/14/2024 11:11 AM Dictation Location: [place] [address] Electronically authenticated by: [id number] Y Date: 09/14/2024 11:11 Dictated By: Анна Sherwood M.D. Signed By: 09/14/24 1114 DD/ 1111 TD/TT: Table Operator: [facility]OOKLINE HOSPITALDiogenes HealthcareRadiology Study observation (narrative)[facility] HealthUS OB TRANSVAGINALOrdered By: Radiologist Radiology on 64-71-4334BUT[facility] Work Phone: US OB TRANSVAGINALon [phone] OB TRANSVAGINALEXAM: US OB TRANSVAGINAL HISTORY: Dating. [...] II, MD, PHD at 31-Aug-2024 12:18:[address] [facility] TeleradiologyNormalNot AvailableComment on above:Order Comment: US OB TRANSVAGINAL No LMP recorded (within months).RECURRENT VAGINITIS (HTRX)on 41-51-8713OOJEJMOGX MCYMUNW0VQVK HealthcareATOPOBIUM VAGINAENot detectedNOWA HealthcareBVAB 2,3 (BACTERIAL VAGINOSIS ASSOCIATED BACTERIA 2, 3); MOBILUNCUS EET1SXXK Healthcare BVAB 2,3 (BACTERIAL VAGINOSIS ASSOCIATED BACTERIA 2, 3); MOBILUNCUS SPPNot detectedNOWA HealthcareCANDIDA ALBICANS, PARAPSILOSIS, DFLJTHEQWP60.742Abnormal [facility] HealthcareCANDIDA ALBICANS, PARAPSILOSIS, TROPICALISDetectedAbnormalNOMS HealthcareCANDIDA EKYOFIVA7FCHE HealthcareCANDIDA GLABRATANot detectedNOMS HealthcareCANDIDA RYYBQB5CTAZ HealthcareCANDIDA KRUSEINot detectedNOMS HealthcareCHLAMYDIA NLPIYZAFTTT7KJCJ HealthcareCHLAMYDIA TRACHOMATISNot detected NOMS HealthcareGARDNERELLA XJVTLESBT2DQDU HealthcareGARDNERELLA VAGINALISNot detectedNOMS HealthcareInterpretation and review of laboratory resultsAbnormal NOMS HealthcareMEGASPHAERA (TYPES 1, 2)0NOMS HealthcareMEGASPHAERA (TYPES 1, 2) Not detectedNOMS HealthcareMYCOPLASMA OUQLLTEDJW0XMFM HealthcareMYCOPLASMA GENITALIUMNot detectedNOMS HealthcareNEISSERIA QCXYVXKFRUL6XZRF Healthcare NEISSERIA GONORRHOEAENot detectedNOMS HealthcareTRICHOMONAS HCFPPZEDO4UDGP HealthcareTRICHOMONAS VAGINALISNot detectedNOMS HealthcareNOMS HealthcareHCG ( test) Ql (U)on 66-11-1400Nnapaegopqkokn and review of laboratory resultsAbnormalNOMS HealthcarePreg Test, UrPositiveNegativeNOMS HealthcareNOWA HealthcareTBH PREG QUANT HCGon 46-07-2349JXF DRMOOGUDKAXV026uWE/mLNOMS HealthcareComment on above:5-50 0.2-1 WEEK 50-500 1-2 WEEKS 100-5,000 2-3 WEEKS 500-10,000 3-4 WEEKS 1,000-50,000 4-5 WEEKS 10,000-100,000 5-6 WEEKS 15,000-200,000 6-8 WEEKS 10,000-100,000 2-3 MONTHS CLINISYNCNOWA HealthcareCortisolon 45-82-2282Kmjkhbxh [Mass/Vol]11.0 microgram/dLInvalid Interpretation Code6.2-19.4[facility] Comment on above:Result Comment: Please Note: The reference interval and flagging for this test is for an AM collection. If this is a PM collection please use: Cortisol PM: 2.3-11.9 Performed at: [facility] [address] [id number] PhD Gilles Morrisformed By: #### [id number] #### [facility] [address] [place], [place] [address]AOScd 77-34-8921Lbtnc gap [Moles/Vol]8 mmol/LNormal6-16[facility] CenterComment on above:Performed By: #### [id number] #### [facility] [address] [place], [place] [address]Szjkmtk [Mass/Vol]8.3 mg/dLLow8.9-11.1FDetwiler Memorial HospitalComment on above:Performed By: #### [id number] #### [facility] [address] [place], [place] [address]Lqxsyjtb [Moles/Vol]109 mmol/KNwrygy289-517CpkdxsUniversity Hospitals Portage Medical CenterComment on above:Performed By: #### [id number] #### [facility] [address] [place], [place] [address]UM1 [Moles/Vol]27 mmol/LJbedwd44-76BdgeiqUniversity Hospitals [facility]age [facility] Center Comment on above:Performed By: #### [id number] #### [facility] [address] [place], [place] [address]Lehopburds [Mass/Vol]0.5 mg/dLNormal0.5-1.3FDetwiler Memorial HospitalComment on above:Performed By: #### [id number] #### [facility] [address] [place], [place] [address]Hxmsxdc [Mass/Vol]104 mg/rNXuyizu11-512DlovmqUniversity Hospitals Portage Medical CenterComment on above:Performed By: #### [id number] #### [facility] [address] [place], [place] [address]Vpjndmgcb [Moles/Vol]4.0 mmol/LNormal3.5-5.3FDetwiler Memorial HospitalComment on above:Performed By: #### [id number] #### [facility] [address] [place], [place] [address]Msktna [Moles/Vol]140 mmol/CIpbpyt552-966RufrhvUniversity Hospitals Portage Medical CenterComment on above:Performed By: #### [id number] #### [facility] [address] [place], [place] [address]Dajg nitrogen [Mass/Vol]10 mg/dLNormal5-21[facility] CenterComment on above:Performed By: #### [id number] #### [facility] [address] [place], [place] [address]Lmdb nitrogen/Creatinine [Mass ratio]20 No QcejoLedfks59-74 [facility] CenterComment on above:Performed By: #### [id number] #### [facility] [address] [place] [address]PFA w/ Auto Diffon 18-29-1912Xxclyjmao/100 WBC (Bld)0.8 %Normal 0.0-2.0[facility] CenterComment on above:Performed By: #### [id number] #### [facility] [address] [place] [address]Lmuobucav/Leukocytes Auto (Bld) [Pure # fraction]0.1 E9/LNormal 0.0-0.2FDetwiler Memorial HospitalComment on above:Performed By: #### [id number] #### [facility] [address] [place] [address]Exybzcvsdkh (Bld) [#/Vol]0.2 E9/LNormal0.0-0.5FDetwiler Memorial HospitalComment on above:Performed By: #### [id number] #### [facility] [address] [place] [address]Kvlpuoexchj/100 WBC (Bld)3.6 %Normal0.0-8.0[facility] CenterComment on above:Performed By: #### [id number] #### [facility] [address] [place] [address]Inlomcqguqf distribution width (RBC) [Ratio]12.6 %Normal 10.9-14.2FDetwiler Memorial HospitalComment on above:Performed By: #### [id number] #### [facility] [address] [place] [address]Ipxflfzlqx (Bld) [Volume fraction]35.7 %Bhpxug12.0-46.0[facility] CenterComment on above:Performed By: #### [id number] #### [facility] [address] [place] [address]239Yefhqyowez (Bld) [Mass/Vol]12.6 g/dBXdgini93.0-16.0[facility] CenterComment on above:Performed By: #### [id number] #### [facility] [address] [place] [address]Qkntmwkmyai (Bld) [#/Vol]2.1 E9/LNormal1.0-4.0[facility] CenterComment on above:Performed By: #### [id number] #### [facility] [address] [place] [address]Idqbjwobfnd/100 WBC (Bld)30.7 %Ivamcm20.0-50.0[facility] CenterComment on above:Performed By: #### [id number] #### [facility] [address] [place] [address]52KAT (RBC) [Entitic mass]32.9 glMwgmhy90.0-34.0[facility] CenterComment on above:Performed By: #### [id number] #### [facility] [address] [place] [address] 23628PPVV (RBC) [Mass/Vol]35.3 g/cYNnfkas06.4-36.0[facility] CenterComment on above:Performed By: #### [id number] #### [facility] [address] [place] [address]UTW (RBC) [Entitic vol]93.4 nRTcaauv96.0-100.0[facility] CenterComment on above:Performed By: #### [id number] #### [facility] [address] [place] [address] 88491Yrjkqhpet (Bld) [#/Vol]0.6 E9/LNormal0.2-1.0[facility] CenterComment on above:Performed By: #### [id number] #### [facility] [address] [place] [address] 76421Bsrfhxcewrw (Bld) [#/Vol]3.9 E9/LNormal2.0-7.5FDetwiler Memorial HospitalComment on above:Performed By: #### [id number] #### [facility] [address] [place] [address]Gajhtaohjyu/100 WBC (Bld)55.7 %Auqzxy34.0-75.0[facility] CenterComment on above:Performed By: #### [id number] #### [facility] [address] [place] [address] 169[address]Dngefalk166.0 E9/AAoqwne682.0-500.0[facility] Comment on above:Performed By: #### [id number] #### [facility] [address] [place] [address] 82530Jybpltno mean volume (Bld) [Entitic vol]7.8 fLNormal6.4-10.8 [facility] CenterComment on above:Performed By: #### [id number] #### [facility] [address] [place] [address] 36432BSN (Bld) [#/Vol]3.8 E12/LLow4.3-5.9[facility] Comment on above:Performed By: #### [id number] #### [facility] [address] [place] [address] 74795XLT corrected for nucl RBC Auto (Bld) [#/Vol]7.0 E9/LNormal 4.0-11.0[facility] CenterComment on above:Performed By: #### [id number] #### [facility] [address] [place] [address] 99323QAVDWXXIKQmwwggb By: SYSTEM SYSTEM on 99-81-0744Hzywf gap [Moles/Vol]8 mmol/LNormal6 - 16 mEq/LRemisol ChemCalcium [Mass/Vol]8.3 mg/dLLow 8.9 - 11.1 mg/dLRemisol ChemChloride [Moles/Vol]109 mmol/VAnfuvq306 - 111 mmol/L Remisol ChemCO2 [Moles/Vol]27 mmol/RQlufmh34 - 31 mmol/LRemisol ChemCreatinine [Mass/Vol]0.5 mg/dLNormal0.5 - 1.3 mg/dLRemisol AgocsALE458 mL/min/1.73 i9Jhrdnb >=59mL/min/1.73 s5Cbcztwp ChemGlucose [Mass/Vol]104 mg/tCCyewgn69 - 199 mg/dL Remisol ChemPotassium [Moles/Vol]4.0 mmol/LNormal3.5 - 5.3 mmol/LRemisol Chem Sodium [Moles/Vol]140 mmol/RIqpuxm937 - 145 mmol/LRemisol ChemTSH Qn5.22 m[IU]/L Normal0.34 - 5.60 mcIU/mLRemisol ChemUrea nitrogen [Mass/Vol]10 mg/dLNormal5 - 21 mg/dLRemisol ChemUrea nitrogen/Creatinine [Mass ratio]20 mg/noJzrfti66 - 20 Remisol ChemDischarge Note-Nursingon 05-74-0419Zjgjygbwu Note-NursingDischarge Note-Nursing JYOTI TORRES :2000 Visit Date:03/12/2024 Inpatient Discharge Instructions Your Care Team Admitting Physician - Thor RIZVI, Kai Lagos Consulting Physician - Remigio RIZVI, Anthony Flores MD, Benjamin [facility] Cardio, XXXX Reason for Your Visit abdomenal [...] with a neurologist as well as a hoop puncher. 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 Where: [place] [address]- Follow Up with Jenna BA When: 03/15/2024 09:45 AM EST Where: [address] [facility] [place] [address]- [phone] Business (1) Follow Up with Mark RIZVI, [...] down and after you (more content not included)...NormalUniversity Hospitals Portage Medical CenterHEMATOLOGYOrdered By: SYSTEM SYSTEM on 28-32-1285Cadnxknwf/100 WBC (Bld)0.8 %Normal0.0 - 2.0 %Remisol Heme Basophils/Leukocytes Auto (Bld) [Pure # fraction]0.1 E9/LNormal0.0 - 0.2 E9/L Remisol HemeEosinophils (Bld) [#/Vol]0.2 E9/LNormal0.0 - 0.5 E9/LRemisol Heme Eosinophils/100 WBC (Bld)3.6 %Normal0.0 - 8.0 %Remisol HemeErythrocyte distribution width (RBC) [Ratio]12.6 %Fipapf33.9 - 14.2 %Remisol HemeHematocrit (Bld) [Volume fraction]35.7 %Uemmjb93.0 - 46.0 %Remisol HemeHemoglobin (Bld) [Mass/Vol]12.6 g/fYGcnfwd50.0 - 16.0 gm/dLRemisol HemeLymphocytes (Bld) [#/Vol] 2.1 E9/LNormal1.0 - 4.0 E9/LRemisol HemeLymphocytes/100 WBC (Bld)30.7 %Normal 14.0 - 50.0 %Remisol HemeMCH (RBC) [Entitic mass]32.9 haEuuslf01.0 - 34.0 pg Remisol HemeMCHC (RBC) [Mass/Vol]35.3 g/sIHpzgcl02.4 - 36.0 gm/dLRemisol HemeMCV (RBC) [Entitic vol]93.4 tBJieiwj29.0 - 100.0 fLRemisol HemeMonocytes (Bld) [#/Vol]0.6 E9/LNormal0.2 - 1.0 E9/LRemisol HemeMonocytes/100 WBC (Bld)9.2 % Normal4.0 - 14.0 %Remisol HemeNeutrophils (Bld) [#/Vol]3.9 E9/LNormal2.0 - 7.5 E9/LRemisol HemeNeutrophils/100 WBC (Bld)55.7 %Uryjok27.0 - 75.0 %Remisol Heme Ocpoblxl060.0 E9/FBvutad827.0 - 500.0 E9/LRemisol HemePlatelet mean volume (Bld) [Entitic vol]7.8 fLNormal6.4 - 10.8 fLRemisol HemeRBC (Bld) [#/Vol]3.8 E12/LLow 4.3 - 5.9 E12/LRemisol HemeWBC corrected for nucl RBC Auto (Bld) [#/Vol]7.0 E9/L Normal4.0 - 11.0 E9/LRemisol HemeInpatient Clinical Summaryon 03-13-2024 Inpatient Clinical SummaryInpatient Clinical Summary [place] [address] Clinical Summary Person Information: Name: JYOTI TORRES Age: 23 Years : 2000 Sex: Female PCP: Jenna BA DO Marital Status: Race: White Ethnicity: Non- or Language: Surinamese Visit Id: Visit Reason: Abdominal pain; ABD PAIN /PASSED OUT Speciality: Acuity: Enc Type: Observation Med Service: Medical Arrival: 03/12/2024 05:43:15 Discharge: Dispo Type: Admitted as IP to this Hosp Address: [address] [place] [address] Provider Notes: Diagnosis: 1:Syncope; 2:Postural orthostatic tachycardia [...] Physician: Benjamin Flores MD; Anthony Flood MD; [facility] Cardio, XXXX Referring Physician: Follow up: With: Address: When: Jenna BA [address] [facility] [place] [phone] [facility] (1) 03/15/2024 9:45 AM With: Address: When: Anthony Flood MD, [address]Mad[address] [place] [id number] 03/28/2024 1:40 PM Comments: Will being Hue Bentley ZONE MANAGER at this appointment. With: Address: When: Benjamin Flores MD, CAR Within 2 to 4 weeks Comments: Call for followup appointment Patient Education Information: Postural Orthostatic Tachycardia Syndrome; Orthostatic Hypotension; Near- Syncope, Frfj-pw-CnxvCbmfieFbiela [facility] CenterInpatient Patient Summary on 50-57-1718Nomytzoku Patient SummaryInpatient Patient Summary [address] [address] Patient Discharge Instructions PERSON INFORMATION Name: JYOTI TORRES Date of : 2000 Current Date: 03/13/2024 12:34:22 PHYSICIANS Admitting Physician: Thor RIZVI, Kai Lagos Primary Care Physician: Jenna BA DO PCP Phone Number: [phone] Comment: Discharge Diagnosis: 1:Syncope; 2:Postural orthostatic tachycardia [...] with a neurologist as well as a hoop puncher. Primary Care Physician to provide the following pending test results: None Follow up: With: Address: When: Jenna BA [address] [facility] [place] [phone] Business (1) 03/15/2024 9:45 AM With: Address: When: Remigio RIZVI, KYLAH Esteves [place] [address] [facility] [place], [place] [phone] 03/28/2024 1:40 PM Comments: Will being Hue [...] are associated with POTS. (more content not included)...NormalFisher [facility] Interdisciplinary Note - Case Manageron 82-00-7695Ovsllfpfsxjmzfqll Note - Case ManagerInterdisciplinary Note - Highway Traffic Control Technician CRM to room 327 Patient is awake, alert and oriented. Patient is from home with her spouse. [place]. He is present in room. Patient verified [...] darryl board updated. CRM following Dc date TBDNormalUniversity Hospitals Portage Medical CenterComment on above:Result Comment: Electronically Signed By: Radha Trevino\.br\Date and Time Signed: 03/13/24 09:28 ESTTSH With T4fr Reflexon [id number] Qn5.22 m[IU]/LNormal0.34-5.60 [facility] CenterComment on above:Performed By: #### [id number] #### [facility] Laboratory [address] [place], [place] [address]oGYBvr 69-16-4744uMQH344 mL/min/1.73 b4Meqaxf>=59[facility] CenterComment on above:Performed By: #### [id number] #### [facility] [address] [place], [place] [address]LQWlj 95-04-8834Gamtq gap [Moles/Vol]9 mmol/LNormal6-16[facility] CenterComment on above:Performed By: #### [id number] #### [facility] [address] [place], [place] [address]Sheblfe [Mass/Vol]9.0 mg/dLNormal8.9-11.1FDetwiler Memorial HospitalComment on above:Performed By: #### [id number] #### [facility] [address] [place], [place] [address]Mbktrsnc [Moles/Vol]106 mmol/YLlohlk135-672TtejlbUniversity Hospitals Portage Medical CenterComment on above:Performed By: #### [id number] #### [facility] [address] [place], [place] [address]ZP0 [Moles/Vol]27 mmol/ZWykyzp07-00EuclrlUniversity Hospitals Portage Medical Center Comment on above:Performed By: #### [id number] #### [facility] [address] [place], [place] [address]Empsljnwcx [Mass/Vol]0.6 mg/dLNormal0.5-1.3FDetwiler Memorial HospitalComment on above:Performed By: #### [id number] #### [facility] [address] [place], [place] [address]Cvaezan [Mass/Vol]108 mg/fOLrwtfl80-485FggoqwUniversity Hospitals Portage Medical CenterComment on above:Performed By: #### [id number] #### [facility] [address] [place], [place] [address]Bbmpfmjmi [Moles/Vol]3.9 mmol/LNormal3.5-5.3FDetwiler Memorial HospitalComment on above:Performed By: #### [id number] #### [facility] [address] [place], [place] [address]Bhpcaj [Moles/Vol]138 mmol/OIuiknj145-154GevtucUniversity Hospitals Portage Medical CenterComment on above:Performed By: #### [id number] #### [facility] [address] [place], [place] [address]Bpep nitrogen [Mass/Vol]11 mg/dLNormal5-21[facility] CenterComment on above:Performed By: #### [id number] #### [facility] [address] [place], [place] [address]Rnrh nitrogen/Creatinine [Mass ratio]18 No PusvqMhbmwu24-36 [facility] CenterComment on above:Performed By: #### [id number] #### [facility] [address] [place], [place] [address]YXU w/ Auto Diffon 19-47-3299Wvddhnwqn/100 WBC (Bld)0.2 %Normal 0.0-2.0[facility] CenterComment on above:Performed By: #### [id number] #### [facility] [address] [place] [address] 39766Ssvxcwinw/Leukocytes Auto (Bld) [Pure # fraction]0.0 E9/LNormal 0.0-0.2FDetwiler Memorial HospitalComment on above:Performed By: #### [id number] #### [facility] [address] [place] [address] 407[address]Brfypahdror (Bld) [#/Vol]0.1 E9/LNormal0.0-0.5FDetwiler Memorial HospitalComment on above:Performed By: #### [id number] #### [facility] [address] [place] [address] 35094Wuqgcqdjixr/100 WBC (Bld)0.6 %Normal0.0-8.0[facility] Medical CenterComment on above:Performed By: #### [id number] #### [facility] [address] [place] [address]Uitgyasltha distribution width (RBC) [Ratio]12.5 %Normal 10.9-14.2FDetwiler Memorial HospitalComment on above:Performed By: #### [id number] #### [facility] [address] [place] [address] 99286Rrcjacywxa (Bld) [Volume fraction]40.5 %Jhvspy44.0-46.0[facility] CenterComment on above:Performed By: #### [id number] #### [facility] [address] [place] [address] 34392Xjluxlwfzb (Bld) [Mass/Vol]13.7 g/yODjqzar45.0-16.0[facility] CenterComment on above:Performed By: #### [id number] #### [facility] [address] [place] [address] 58[address]Bzuqnlssfwm (Bld) [#/Vol]1.7 E9/LNormal1.0-4.0[facility] CenterComment on above:Performed By: #### [id number] #### [facility] [address] [place] [address] 020[address]Dtfesnzuyjd/100 WBC (Bld)10.6 %Low14.0-50.0[facility] CenterComment on above:Performed By: #### [id number] #### [facility] [address] [place] [address] 65437NGY (RBC) [Entitic mass]31.4 szZchsun67.0-34.0[facility] CenterComment on above:Performed By: #### [id number] #### [facility] [address] [place] [address] 557[address]BIBS (RBC) [Mass/Vol]33.8 g/yMPfywht27.4-36.0[facility] CenterComment on above:Performed By: #### [id number] #### [facility] [address] [place] [address] 52109UIX (RBC) [Entitic vol]92.9 hXMzdjgm01.0-100.0[facility] CenterComment on above:Performed By: #### [id number] #### [facility] [address] [place] [address] 098[address]Mhxrevlwh (Bld) [#/Vol]0.9 E9/LNormal0.2-1.0[facility] CenterComment on above:Performed By: #### [id number] #### [facility] [address] [place] [address] 38841Hshsggpussp (Bld) [#/Vol]13.5 E9/LHigh2.0-7.5FDetwiler Memorial HospitalComment on above:Performed By: #### [id number] #### [facility] [address] [place] [address] 885[address]Uoslynnqdko/100 WBC (Bld)82.9 %High36.0-75.0[facility] CenterComment on above:Performed By: #### [id number] #### [facility] [address] [place] [address] 13541Jxgyobwd679.0 E9/AKomvtj745.0-500.0[facility] Comment on above:Performed By: #### [id number] #### [facility] [address] [place] [address] 41176Pldlnisa mean volume (Bld) [Entitic vol]7.6 fLNormal6.4-10.8 [facility] CenterComment on above:Performed By: #### [id number] #### [facility] [address] [place] [address] 26845DLE (Bld) [#/Vol]4.4 E12/LNormal4.3-5.9[facility] CenterComment on above:Performed By: #### [id number] #### [facility] [address] [place] [address]95[address]JAN corrected for nucl RBC Auto (Bld) [#/Vol]16.3 E9/LHigh 4.0-11.0[facility] CenterComment on above:Performed By: #### [id number] #### [facility] [address] [place] [address] 08654OLPKMOHOHXhxmrgy By: SYSTEM SYSTEM on 40-47-9235Ptbxcyo [Mass/Vol]4.1 g/dLNormal3.3 - 5.0 gm/dLRemisol ChemAlbumin/Globulin [Mass ratio] 1.5 {ratio}Normal1.1 - 2.2Remisol ChemALP [Catalytic activity/Vol]38 [iU]/d Mxchmd85 - 98 Int._Unit/LRemisol ChemALT No additional P-5'-P [Catalytic activity/Vol]14 [iU]/dNormal6 - 46 Int._Unit/LRemisol ChemAnion gap [Moles/Vol]9 mmol/LNormal6 - 16 mEq/LRemisol ChemAST [Catalytic activity/Vol]16 [iU]/dNormal 5 - 43 Int._Unit/LRemisol ChemBilirubin [Mass/Vol]0.7 mg/dLNormal0.0 - 1.1 mg/dL Remisol ChemBilirubin.direct [Mass/Vol]0.1 mg/dLNormal0.0 - 0.4 mg/dLRemisol ChemBilirubin.indirect [Mass or moles/Vol]0.6 mg/dLNormal0.1 - 0.9 mg/dLRemisol ChemCalcium [Mass/Vol]9.0 mg/dLNormal8.9 - 11.1 mg/dLRemisol ChemChloride [Moles/Vol]106 mmol/YMujaon543 - 111 mmol/LRemisol ChemCO2 [Moles/Vol]27 mmol/L Jmyrdx38 - 31 mmol/LRemisol ChemCreatinine [Mass/Vol]0.6 mg/dLNormal0.5 - 1.3 mg/dLRemisol NaatqJJF803 mL/min/1.73 w9Rzvqxm>=59mL/min/1.73 l6Ztnxinb Chem Globulin (S) [Mass/Vol]2.8 g/dLNormal1.4 - 4.0 gm/dLRemisol ChemGlucose [Mass/Vol]108 mg/mAWnokwf73 - 199 mg/dLRemisol ChemLipase [Catalytic activity/Vol]19 U/YCjhkjv05 - 58 unit/LRemisol ChemPotassium [Moles/Vol]3.9 mmol/LNormal3.5 - 5.3 mmol/LRemisol ChemProtein [Mass/Vol]6.9 g/dLNormal6.0 - 7.8 gm/dLRemisol ChemSodium [Moles/Vol]138 mmol/VXvaamg427 - 145 mmol/LRemisol ChemTroponin HSpg/mLLow10.10 - 27.10 pg/mLRemisol ChemComment on above: Interpretive Data: The 95% CI (Confidence Interval) PPV (Positive Predictive Value) for myocardial infarction in females is 38 pg/mL, in males 51 pg/mL. The results should be used in conjunction withclinical conditions of myocardial infarction. (Access High Sensitivity Troponin I Instructions For Use, Robin Ibrahima, November 2017)Urea nitrogen [Mass/Vol]11 mg/dLNormal5 - 21 mg/dLRemisol ChemUrea nitrogen/Creatinine [Mass ratio]18 mg/guPblpsj23 - 20Remisol ChemCT Abdomen/Pelvis w/ Contraston [id number] Abdomen/Pelvis w/ ContrastExam Date/Time: 03/12/2024 06:49 EST Reason for Exam: ABDOMINAL PAIN, ACUTE, NONLOCALIZED;Other (please specify) Report IMPRESSION: MILD NONSPECIFIC ILL-DEFINED INFLAMMATION CENTERED AROUND THE RIGHT OVARY. POSSIBILITIES INCLUDE OOPHORITIS AND EARLY TORSION. FURTHER EVALUATION WITH ULTRASOUND IS SUGGESTED. Critical communication: Dr. Loevll was notified at approximately 03/12/2024 6:53 AM [...] amount in ml's: 100 Rectal Contrast Given? NoNormalWadsworth[facility] Clinical Summaryon [id number] Clinical SummaryED Clinical Summary [address] [address] ED Clinical Summary Person Information Name: JYOTI TORRES Sara/[facility] Age: 23 Years : 2000 Sex: Female Language: Surinamese PCP: Jenna BA DO Marital Status: Visit Id: Visit Reason: Abdominal pain; ABD PAIN /PASSED OUT Speciality: Acuity: 3 Enc Type: Observation Med Service: Medical Arrival: 03/12/2024 05:43:15 Discharge: LOS: 000 07:16 Checkin: 03/12/2024 05:43:15 Checkout: 03/12/2024 12:59:23 Dispo Type: Admitted as IP to this [facility] EVENTS: Event Name Event Status Request [...] 03/12/2024 12:07:26 Lab Request 03/12/2024 12:07:26 ADDRESS: [address] [place] [id number] [facility] DOC NOTES: Addendum by Earl Foote DO on March 12, 2024 10:27:34 EST MEDICAL INFORMATION: Prescriptions Given: Medications to Continue with No Changes Other Medications ethinyl estradiol-levonorgestrel (Balcoltra) By Mouth every day. PATIENT EDUCATION INFORMATION: Instructions: Follow up: DIAGNOSIS: 1:Syncope; 2:Postural orthostatic tachycardia syndrome [POTS]; 3:Orthostatic syncope; 4:Abdominal pain, acute; 5:Hypotension; 6:LeukocytosisNormalFisher Glen Allan Medical CenterED Note-Physicianon [id number] Note-PhysicianED Note-Physician Basic Information Time Seen: Tuan [...] and Complexity of Problems Differential Diagnosis: [] [facility] Data External documents reviewed: [] My EKG [...] Lymph Auto: 10.6 % Low (03/12/24 06:09:00) [place] Auto: 5.7 % (03/12/24 06:09:00) Eos Auto: 0.6 % (03/12/24 06:09:00) Basophil Auto: 0.2 % (03/12/24 06:09:00) Neutro Absolute: 13.5 E9/L High (03/12/24 06:09:00) Lymph Absolute: 1.7 E9/L (03/12/24 06:09:00) [place] Absolute: 0.9 E9/L (03/12/24 06:09:00) Eos Absolute: 0.1 E9/L (03/12/24 06:09:00) Basophil Absolute: 0 E9/L (03/12/24 06:09:00) Gl (more content not included)...[facility] HospitalComment on above:Result Comment: Electronically Signed By: Earl Foote DO\.br\Date and Time Signed: 03/12/24 10:29ESTED Note-PhysicianED Note-Physician [...] and Complexity of Problems Differential Diagnosis: [] [facility] Data External documents reviewed: [] My EKG [...] Lymph Auto: 10.6 % Low (03/12/24 06:09:00) [place] Auto: 5.7 % (03/12/24 06:09:00) Eos Auto: 0.6 % (03/12/24 06:09:00) Basophil Auto: 0.2 % (03/12/24 06:09:00) Neutro Absolute: 13.5 E9/L High (03/12/24 06:09:00) Lymph Absolute: 1.7 E9/L (03/12/24 06:09:00) [place] Absolute: 0.9 E9/L (03/12/24 06:09:00) Eos Absolute: 0.1 E9/L (03/12/24 06:09:00) Basophil Absolute: 0 E9/L (03/12/24 06:09:00) Gl (more content not included)...[facility] HospitalComment on above:Result Comment: Electronically Signed By: Tuan Lovell DO\.br\Date and Time Signed: 03/12/24 06:46 ESTED Patient Education Noteon [id number] Patient Education NoteED Patient Education NoteNoSy[facility] ED Patient Summaryon [id number] Patient SummaryED Patient Summary [place] [id number] Patient Discharge Instructions Person Information Name: JYOTI TORRES Age: 23 Years Arrival Date: 03/12/2024 05:43:15 Discharge Diagnosis: 1:Syncope; 2:Postural orthostatic tachycardia syndrome [POTS]; 3:Orthostatic syncope; 4:Abdominal pain, acute; 5:Hypotension; 6:Leukocytosis Primary Care Physician: Jenna BA DO Provider Information Primary Provider: Tuan Lovell DO Advanced Mobile Architect:None The exam and treatment you received in the Emergency Department were for an urgent problem and are not intended as complete care. It is important that you follow up with a doctor, nurse practitioner,or physician???s clinical physician assistant for ongoing care. If your symptoms [...] opioids can be used to help relieve rafdtbot-rb-fadqjd pain and are often prescribed following a [...] struggling with addiction, tell your health care management associate and askfor guidance or call [facility]???S National He (more content not included)...[facility] HospitalExtra Blueon 92-15-2009Wbqm Collected PlasmaYesInvalid Interpretation [facility] HospitalComment on above:Performed By: #### [id number] #### [facility] Laboratory [address] [place], [place] [address]EGMGNXLWFFOmsdgqz By: SYSTEM SYSTEM on 32-82-3550Omhdsmzzj/100 WBC (Bld)0.2 %Normal0.0 - 2.0 %Remisol HemeBasophils/Leukocytes Auto (Bld) [Pure # fraction]0.0 E9/LNormal0.0 - 0.2 E9/LRemisol HemeEosinophils (Bld) [#/Vol]0.1 E9/LNormal0.0 - 0.5 E9/LRemisol HemeEosinophils/100 WBC (Bld)0.6 %Normal0.0 - 8.0 %Remisol HemeErythrocyte distribution width (RBC) [Ratio]12.5 %Mgeyjj07.9 - 14.2 %Remisol HemeHematocrit (Bld) [Volume fraction]40.5 %Uyhbpv45.0 - 46.0 % Remisol HemeHemoglobin (Bld) [Mass/Vol]13.7 g/rEJgjaan57.0 - 16.0 gm/dLRemisol HemeLymphocytes (Bld) [#/Vol]1.7 E9/LNormal1.0 - 4.0 E9/LRemisol Heme Lymphocytes/100 WBC (Bld)10.6 %Low14.0 - 50.0 %Remisol HemeMCH (RBC) [Entitic mass]31.4 ncRkimkr71.0 - 34.0 pgRemisol HemeMCHC (RBC) [Mass/Vol]33.8 g/dLNormal 31.4 - 36.0 gm/dLRemisol HemeMCV (RBC) [Entitic vol]92.9 kSRyeosa89.0 - 100.0 fL Remisol HemeMonocytes (Bld) [#/Vol]0.9 E9/LNormal0.2 - 1.0 E9/LRemisol Heme Monocytes/100 WBC (Bld)5.7 %Normal4.0 - 14.0 %Remisol HemeNeutrophils (Bld) [#/Vol]13.5 E9/LHigh2.0 - 7.5 E9/LRemisol HemeNeutrophils/100 WBC (Bld)82.9 % High36.0 - 75.0 %Remisol EqemZyzbcqlj335.0 E9/ZIdfiqr130.0 - 500.0 E9/LRemisol HemePlatelet mean volume (Bld) [Entitic vol]7.6 fLNormal6.4 - 10.8 fLRemisol HemeRBC (Bld) [#/Vol]4.4 E12/LNormal4.3 - 5.9 E12/LRemisol HemeWBC corrected for nucl RBC Auto (Bld) [#/Vol]16.3 E9/LHigh4.0 - 11.0 E9/LRemisol HemeHep Func Panelon 06-18-5033Fbpqukr [Mass/Vol]4.1 g/dLNormal3.3-5.0Fisher [facility] Medical CenterComment on above:Performed By: #### [id number] #### [place] [facility] Laboratory [address] [place], [place] [address]Waegpsa/Globulin (S) [Mass conc ratio]1.5Iagjsx6.1-2.2Fisher [facility] Medical CenterComment on above:Performed By: #### [id number] #### [facility] [address] [place], [place] [address]OGW [Catalytic activity/Vol]38 Int._Unit/JOuhwdo53-57NvdkywUniversity Hospitals Portage Medical CenterComment on above:Performed By: #### [id number] #### [facility] Laboratory [address] [place], [place] [address]HOG No additional P-5'-P [Catalytic activity/Vol]14 Int._Unit/L Normal6-46[facility] CenterComment on above:Performed By: #### [id number] #### [facility] Laboratory [address] [place], [place] [address]ESX [Catalytic activity/Vol]16 Int._Unit/LNormal5-43[facility] CenterComment on above:Performed By: #### [id number] #### [facility] Laboratory [address] [place] [address]Epdrcwged [Mass/Vol]0.7 mg/dLNormal0.0-1.1FDetwiler Memorial HospitalComment on above:Performed By: #### [id number] #### [facility] Laboratory [address] [place] [address]Usoimfqyr.direct [Mass/Vol]0.1 mg/dLNormal0.0-0.4FDetwiler Memorial HospitalComment on above:Performed By: #### [id number] #### [facility] Laboratory [address] [place] [address]Zrwgwlvdd.indirect [Mass or moles/Vol]0.6 mg/dLNormal0.1-0.9 [facility] CenterComment on above:Performed By: #### [id number] #### [facility] Laboratory [address] [place], [place] [address]Qilufxfi (S) [Mass/Vol]2.8 g/dLNormal1.4-4.0[facility] CenterComment on above:Performed By: #### [id number] #### [facility] [address] [place] [address] 57471Hxsqnsl [Mass/Vol]6.9 g/dLNormal6.0-7.8[facility] CenterComment on above:Performed By: #### [id number] #### [facility] [address] [place], [place] [address]Embgxfmkbxspnoplr Note - Case Manageron 03-12-2024 Interdisciplinary Note - Case ManagerInterdisciplinary Note - Highway Traffic Control Technician CRM to room 327 Patient is a new admission Nursing is doing her admit at this time. CRM will see patient on 03/13Normal [facility] CenterComment on above:Result Comment: Electronically Signed By: Radha Trevino\.br\Date and Time Signed: 03/12/24 13:56 ESTLipase Levelon 45-68-5712Dhkciy [Catalytic activity/Vol]19 U/FZizyrc80-68XwnozjUniversity Hospitals Portage Medical CenterComment on above:Performed By: #### [id number] #### [facility] [address] [place] [address] 40143UJUTTCAMUhwolbw By: Leyla Mercer on 54-83-2565QCC.beta subunit (U) [Moles/Vol]NegativeNormalNORMAN [facility] Man SeroTroponin 0 Hr.on 03-12-2024 Troponin HS<2.46Qvd66.10-27.10[facility] CenterComment on above:Result Comment: The 95% CI (Confidence Interval) PPV (Positive Predictive Value) for myocardial infarction in females is 38 pg/mL, in males 51 pg/mL. The results should be used in conjunction with clinical conditions of myocardial infarction. (Access High Sensitivity Troponin I Instructions For Use, Robin [place], November 2017)Performed By: #### [id number] #### [facility] [address] [place], [place] [address]J BetaHcg Qualon 69-72-5414XRT.beta subunit (U) [Moles/Vol] NegativeNormalUniversity Hospitals Portage Medical CenterComment on above:Performed By: #### [id number] #### [facility] [address] [place], [place] [address]RX with Cult Rflxon 17-93-1442Ezqkjijf Auto Ql (U)TraceNormal TraceUniversity Hospitals Portage Medical CenterComment on above:Performed By: #### [id number] #### [facility] [address] [place] [address] 99872Shuqtsiuc Ql (U)NegativeNormalNegativeUniversity Hospitals Portage Medical CenterComment on above:Performed By: #### [id number] #### [facility] [address] [place], [place] [address]Ztmkoxa (U)ClearNormalClearUniversity Hospitals Portage Medical CenterComment on above:Performed By: #### [id number] #### [facility] [address] [place] [address] 49650Jrtda (U)YellowNormalYellowUniversity Hospitals Portage Medical CenterComment on above:Result Comment: Microscopic readings are only performed on those samples that meet specific criteria set forth by [facility].Performed By: #### [id number] #### [facility] [address] [place] [address] 70614Ijunhyithw cells.squamous Auto (Urine sed) [#/Area]3-4Invalid Interpretation CodeUniversity Hospitals Portage Medical CenterComment on above:Performed By: #### [id number] #### [facility] [address] [place] [address] 68525Cxukiqd Ql (U)NegativeNormalNegBlanchard Valley Health System [facility] Comment on above:Performed By: #### [id number] #### [facility] [address] [place], [place] [address]Nstztpltlo Auto test strip (U) [Mass/Vol]NegativeNormalNegative [facility] CenterComment on above:Performed By: #### [id number] #### [facility] [address] [place], [place] [address]Mjmikgk Auto test strip Ql (U)NegativeNormalNegativeUniversity Hospitals Portage Medical CenterComment on above:Performed By: #### [id number] #### [facility] [address] [place] [address]7595Gcrdagdlc esterase Auto test strip Ql (U)NegativeNormalNegative [facility] CenterComment on above:Performed By: #### [id number] #### [facility] [address] [place] [address] 059[address]Orzjc Auto Ql (U)TraceNormalNegBlanchard Valley [facility] Comment on above:Performed By: #### [id number] #### [facility] [address] [place] [address] 31704Ozwaouk Auto test strip Ql (U)NegativeNormalNegativeUniversity Hospitals Portage Medical CenterComment on above:Performed By: #### [id number] #### [facility] [address] [place] [address] 31385yM (U)8.5 [pH]Invalid Interpretation Code5.0-9.0[facility] CenterComment on above:Performed By: #### [id number] #### [facility] [address] [place] [address] 91270Vcvozmx Ql (U)1+ mg/dLAbnormalNegativeUniversity Hospitals Portage Medical CenterComment on above:Performed By: #### [id number] #### [facility] [address] [place] [address] 05344ZBJ Ql (U)0-4Wkkcja7-3Bbknpa [facility] CenterComment on above:Performed By: #### [id number] #### [facility] [address] [place] [address] 31851Vgwniwne gravity (U) [Rel density]1.017Invalid Interpretation Code1.005-1.030[facility] CenterComment on above:Performed By: #### [id number] #### [facility] [address] [place] [address] 07583Mxnkefmpojse (U) [Mass/Vol]NegativeNormalNegativeUniversity Hospitals Portage Medical CenterComment on above:Performed By: #### [id number] #### [facility] [address] [place] [address] 43173VRB Auto (Urine sed) [#/Area]5-2Ywjznm7-5Odoeca [facility] CenterComment on above:Performed By: #### [id number] #### [facility] [address] [place], [place] [address]Lrjy of Urine collection methodClean CatchNormalFisher [facility] CenterComment on above:Performed By: #### [id number] #### [facility] [address] [place], [place] [address]GIJOAZHQUIVbxmkml By: SYSTEM SYSTEM on 64-18-5702Pzknpubz Auto Ql (U)Trace /HPFNormalTrace/HPFFT UA Auto SSBilirubin Ql (U)NegativeNormal Negativemg/dLNORMAN REGIONAL [facility] UA Auto SSClarity (U)Clear (03/12/24 6:09 AM)NormalClearFROGER MILLS [facility] UA Auto SSColor (U)Yellow 1 (03/12/24 6:09 AM)NormalYellowNORMAN REGIONAL HOSPITAL [facility] UA Auto SSComment on above:Interpretive Data: Microscopic readings are only performed on those samples that meet specific criteria set forth by [facility].Epithelial cells.squamous Auto (Urine sed) [#/Area]3-4 graded/HPFInvalid Interpretation CodeFT UA Auto SSGlucose Ql (U)NegativeNormalNegativemg/dLNORMAN REGIONAL [facility]ITAL [facility] UA Auto SS Hemoglobin Auto test strip (U) [Mass/Vol]NegativeNormalNegativemg/dLFT UA Auto SSKetones Auto test strip Ql (U)NegativeNormalNegativemg/dLFT UA Auto SS Leukocyte esterase Auto test strip Ql (U)NegativeNormalNegativeLeu/uLFT UA Auto SSMucus Auto Ql (U)Trace graded/LPFNormalNegativegraded/LPFFTMC UA Auto SS Nitrite Auto test strip Ql (U)NegativeNormalNegativemg/dLFT UA Auto SSpH (U) 8.5 *NA* (03/12/24 6:09 AM)Invalid Interpretation Code5.0 - 9.0FT UA Auto SSProtein Ql (U)1+ mg/dLInvalid Interpretation CodeNegativemg/dLNORMAN REGIONAL [facility] UA Auto SSRBC Ql (U)0-3 graded/HPFNormal0-3graded/UINTA[facility] UA Auto SSSpecific gravity (U) [Rel density] 1.017 *NA* (03/12/24 6:09 AM)Invalid Interpretation Code1.005 - 1.030[facility] UA Auto SS Urobilinogen (U) [Mass/Vol]NegativeNormalNegativemg/dLNORMAN REGIONAL [facility]ITAL [facility] UA Auto SSWBC Auto (Urine sed) [#/Area]0-5 graded/HPFNormal0-5graded/HPFNORMAN REGIONAL [facility] UA Auto SSURINALYSIS Ordered By: Tuan Lovell on 19-69-9530UT Spec DescClean Catch (03/12/24 6:09 AM)NormalNORMAN REGIONAL [facility] UA Auto SS us Pelvis Non-OB Completeon 75-12-1807HT Pelvis Non-OB CompleteExam Date/Time: 03/12/2024 08:08 EST [...] JEREMIAH Technologist: CHELY Technical Comments Transabdominal Ultrasound PerformedNormalUniversity Hospitals Portage Medical CentereGFRon 01-58-4219bINH475 mL/min/1.73 c6Cxrmrx>=59[facility] CenterComment on above:Performed By: #### [id number] #### [facility] [address] [place], [place] [address]NDQ ACOG PANEL 2: 21 to 29on 06-03-2022..NormalMercy Health Perrysburg HospitalComment on above:Performed By: #### [id number] #### [facility] [address] [place] [address] Dr. Vernon Franco Gdln ACOG Rxnsuyi29-54WpthqhEdmSalem Regional Medical CenterComment on above:Performed By: #### [id number] #### [facility] [address] [place] [address] Dr. Vernon MerinoDIAGNOSIS:CommentBerger HospitalComment on above: Result Comment: NEGATIVE FOR INTRAEPITHELIAL LESION OR MALIGNANCY.Performed By: #### [id number] #### [facility] [address] [place] [address] Dr. Vernon MerinoMethodology:CommentNormSumma Health Wadsworth - Rittman Medical CenterComment on above: Result Comment: This liquid based ThinPrep(R) pap test was screened with the use of an image guided system.Performed By: #### [id number] #### [facility] [address] [place] [address] Dr. Vernon MerinoNote:CommentBerger HospitalComment on above:Result Comment: The Pap smear is a screening test designed to aid in the detection of premalignant and malignant conditions of the uterine cervix. It is not a diagnostic procedure and should not be used as the sole means of detecting cervical cancer. Both false-positive and false-negative reports do occur. .Performed By: #### [id number] #### [facility] [address] [place] [address] Dr. Vernon MerinoPerformed by:CommentWyandot Memorial Hospital on above: Result Comment: Marciano Swann Cyber Instructor (ASCP)Performed By: #### [id number] #### [facility] [address] [place] [address] Dr. Vernon MerinoReflex Criteria:CommentWyandot Memorial Hospital on above:Result Comment: The HPV DNA reflex criteria were not met with this specimen result therefore, no HPV testing was performed. .Performed By: #### [id number] #### [facility] [address] [place] [address] Dr. Vernon MerinoSpecimedeanna adequacy:CommentWyandot Memorial Hospital on above:Result Comment: Satisfactory for evaluation. Endocervical and/or squamous metaplastic cells (endocervical component) are present.Performed By: #### [id number] #### [facility] [address] [place] [address] Dr. Vernon Lee SERUMon 89-40-9271Lghvbzfmevxokqsqsarrbw (DHEA)633 ng/dL Ftnnxs88-284Qgt [facility] on above:Result Comment: Age 1 - 5 years 0 - 67 6 - 7 years 0 - 110 8 - 10 years 0 - 185 11 - 12 years 0 - 201 13 - 14 years 0 - 318 15 - 16 years 39 - 481 17 - 19 years 40 - 491 >19 years 31 - 701Performed By: #### DHEA. #### [facility] [address] [place] [address] Dr. Vernon Lee-SULFATEon 73-35-4489DIJS-Cpactve348.0 ug/lVFbjyod312.0-431.[address] [facility] on above:Performed By: #### DHEASUL #### [facility] [address] [place] [address] Dr. Vernon Gabriel 64-96-4498SLF4.7 mIU/mLNormalMercy Health Perrysburg HospitalComment on above:Result Comment: Adult Female: Follicular phase 3.5 - 12.5 Ovulation phase 4.7 - 21.5 Luteal phase 1.7 - 7.7 Postmenopausal 25.8 - 134.8Performed By: #### LBCFSH #### [facility] [address] [place] [address] Dr. Vernon MerinoLUTEINIZING HORMONE (LH)on 00-04-5559EH10.3 mIU/mLNormalMercy Health Perrysburg HospitalComment on above:Result Comment: Adult Female: Follicular phase 2.4 - 12.6 Ovulation phase 14.0 - 95.6 Luteal phase 1.0 - 11.4 Postmenopausal 7.7 - 58.5Performed By: #### LBCLH #### [facility] [address] [place] [address] Dr. eVrnon MerinoPROLACTINon 96-41-1531Dfkrcmfpj75.8 ng/mLNormal4.8-23.3The [facility] HospitalComment on above:Performed By: #### PROLAC #### [facility] [address] [place] [address] Dr. Vernon MerinoCBC AUTO DIFFon 54-05-2240BOEU #0.1 103/ulNormal0.0-0.1The [facility] CenterComment on above:Performed By: #### CBC ####[facility] [address] [place], [place] [address]DrDorie MerinoBasophils/100 WBC (Bld)1.1 %Normal0.2-2.0The [facility] CenterComment on above:Performed By: #### CBC ####[facility] [address] [address]DrDorie ChangEO #0.1 103/ulNormal0.0-0.7The [facility] CenterComment on above:Performed By: #### CBC ####[facility] [address] [place], [place] [address]DrDorie ChangEosinophils/100 WBC (Bld)1.6 %Normal 0.9-7.0The [facility] CenterComment on above:Performed By: #### CBC ####[facility] Ugqj[address] [place], [place] [address]Dr.Vernon Merino Erythrocyte distribution width (RBC) [Ratio]12.1 %Lozftx65.0-15.0The [facility] CenterComment on above:Performed By: #### CBC ####[facility] [address] [place], [place] [address]Dr.Vernon WilberHematocrit (Bld) [Volume fraction]44.5 %Kuwmtb72.0-48.0The [facility] CenterComment on above:Performed By: #### CBC ####[facility] [address] [place], [place] [address]Dr.Vernon MerinoHemoglobin (Bld) [Mass/Vol]14.3 g/dL Yyfftn63.0-16.0The [facility] CenterComment on above:Performed By: #### CBC ####[facility] [address] [place], [place] [address]Dr. Vernon MerinoIG #0.01 10e3/ulNormal0.00-0.03The [facility] CenterComment on above: Performed By: #### CBC ####[facility] [address] [place], [place] [address]Dr.Vernon MerinoIG %0.2 %Normal0.0-0.5The [facility] CenterComment on above:Performed By: #### CBC ####[facility] [address] [place], [place] [address]Dr.Vernon MerinoLYMPH #1.8 103/ulNormal1.2-3.8The [facility] CenterComment on above:Performed By: #### CBC ####[facility] [address] [place], [place] [address]Dr. Vernon MerinoLymphocytes/100 WBC (Bld)29.5 %Hvtqcr73.5-60.0The [facility] Comment on above:Performed By: #### CBC ####[facility] [address] [place], [place] [address]Dr.Vernon MerinoMANUAL DIFF REQNONormalThe [facility] CenterComment on above:Performed By: #### CBC ####[facility] [address] [place], [place] [address]Dr.Vernon MerinoH (RBC) [Entitic mass]30.6 mpOocwqb86.7-34.0The [facility] River HospitalComment on above: Performed By: #### CBC ####[facility] [address] [place], [place] [address]Dr.Vernon MerinoHC (RBC) [Mass/Vol]32.1 g/dLNormal 29.9-35.2The [facility] CenterComment on above:Performed By: #### CBC ####[facility] [address] [place], [place] [address]Dr. Vernon MerinoV (RBC) [Entitic vol]95.3 tOCyolhx60.0-99.0The [facility] Comment on above:Performed By: #### CBC ####[facility] [address] [place], [place] [address]Dr.Vernon MerinoMONO #0.5 103/ulNormal0.3-0.8 The [facility] CenterComment on above:Performed By: #### CBC ####[facility] [address] [place], [place] [address]Dr.Vernon Merino Monocytes/100 WBC (Bld)8.7 %Normal1.7-12.0The [facility] CenterComment on above: Performed By: #### CBC ####[facility] [address] [place], [place] [address]Dr.Vernon MerinoNEUT #3.6 103/ulNormal1.4-6.5The [facility] CenterComment on above:Performed By: #### CBC ####[facility] [address] [place], [place] [address]Dr.Vernon MerinoNeutrophils/100 WBC (Bld)58.9 %Unmsfd05.0-75.0The [facility] CenterComment on above:Performed By: #### CBC ####[facility] [address] [address]DrDorie MerinoPlatelet mean volume (Bld) [Entitic vol]9.9 fLNormal9.5-13.5 The [facility] CenterComment on above:Performed By: #### CBC ####[facility] [address] [address]Dr.Vernon RaymkBUR835 103/whQoehav047-854Tzl [facility] CenterComment on above:Performed By: #### CBC ####[facility] [address] [address]Dr. Vernon MerinoRBC4.67 106/ulNormal4.20-5.40The [facility] CenterComment on above: Performed By: #### CBC ####[facility] [address] [address]Dr.Vernon MerinoWBC6.1 103/ulNormal4.0-11.0The [facility] CenterComment on above:Performed By: #### CBC ####[facility] [address] [address]DrDorie MerinoFREE T4on 85-60-8220Uhii T4 [Mass/Vol]1.10 ng/dLNormal0.76-1.46The [facility] Comment on above:Performed By: #### FT4 #### [facility] [address] [address] [address] Vernon MerinoGLYCOHEMOGLOBIN A1Con 31-84-8010RCL RECOMMENDATIONSEE BELOWNormal The [facility] CenterComcovenant medical center on above:Result Comment: ADA RECOMMENDED LIMIT 4.0 - 6.0 ADA THERAPEUTIC TARGET < 7.0 ACTION SUGGESTED > 7.0Performed By: #### A1C #### [facility] [address] [address] [address] Vernon MerinoGlucose [Mass/Vol]105 mg/dLNormalThe [facility] CenterComment on above:Performed By: #### A1C #### [facility] [address] [address] [address] Vernon MerinoHbA1c (Bld) [Mass fraction]5.3 %Normal4.5-6.2The [facility] CenterComment on above:Performed By: #### A1C #### [facility] [address] [place] [address] Dr. Vernon Chandler 04-40-3370IPC3.981 uIU/mLNormal0.358-3.740The [facility] CenterComment on above:Performed By: #### TSH #### [facility] [address] [place] [address] [address] Vernon MerinoUS PELVIS AND TRANSVAGon 83-87-2756LJ PELVIS AND TRANSVAG EXAMINATION: US PELVIS AND [...] Electronically authenticated by: ANTHONY AQUINO Date: 2022-05-12 11:17Berger HospitalBody fluid albumin measurement (mass/volume)Ordered By: OUTREACH COMMUNITY on 60-19-7114Zllyzba (Body fld) [Mass/Vol]4.0 g/dL3.2-5.5 [facility] CampusCBC Without Differentialon 03-13-2022 Erythrocyte distribution width (RBC) [Ratio]12.9 %Xrxswi79.9-15.3FProtestant Deaconess HospitalComment on above:Performed By: #### OUTREACH CMP, OUTREACH LIPID, OUTREACH TSH, CBCNOOUTREACH #### [place] [address] USAHematocrit (Bld) [Volume fraction]42.3 %Bocnks94.0-46.4 [facility] CampusComment on above:Performed By: #### OUTREACH CMP, OUTREACH LIPID, OUTREACH TSH, CBCNOOUTREACH #### [place] [address] USAHemoglobin (Bld) [Mass/Vol]14.1 g/dURgkauz31.8-15.4 [facility] CampusComment on above:Performed By: #### OUTREACH CMP, OUTREACH LIPID, OUTREACH TSH, CBCNOOUTREACH #### [address]H (RBC) [Entitic mass]30.6 dsQdvydo46.7-34.3FProtestant Deaconess HospitalComment on above:Performed By: #### OUTREACH CMP, OUTREACH LIPID, OUTREACH TSH, CBCNOOUTREACH #### [place] [address] USAMCV (RBC) [Entitic vol]92.0 uIDtjhus35-359VcccpzkwjKettering Health Main CampusComment on above:Performed By: #### OUTREACH CMP, OUTREACH LIPID, OUTREACH TSH, CBCNOOUTREACH #### [place] [address] USAMean Corpuscular HGB Conc33.2 g/gABtcsmf51.0-35.0[facility] CampusComment on above:Performed By: #### OUTREACH CMP, OUTREACH LIPID, OUTREACH TSH, CBCNOOUTREACH #### [place] [address] USAPlatelet mean volume (Bld) [Entitic vol]8.6 fLNormal 6.3-10.7FProtestant Deaconess HospitalComment on above:Result Comment: PERFORMED BY: [place] [address] PATHOLOGIST WORK DISTRIBUTOR YEN ESCOBAR M.D.Performed By: #### OUTREACH CMP, OUTREACH LIPID, OUTREACH TSH, CBCNOOUTREACH #### [facility] [address] [id number] USAPlatelets (Bld) [#/Vol]283 10*3/kJWfwnzk864-312JtkotjmpfKettering Health Main CampusComment on above:Performed By: #### OUTREACH CMP, OUTREACH LIPID, OUTREACH TSH, CBCNOOUTREACH #### [facility] [address] [place] [address] USARBC (Bld) [#/Vol]4.60 10*6/uLNormal3.60-5.00[facility] CampusComment on above:Performed By: #### OUTREACH CMP, OUTREACH LIPID, OUTREACH TSH, CBCNOOUTREACH #### [facility] [address] [place] [address] USAWBC (Bld) [#/Vol]6.6 10*3/uLNormal3.8-11.6FProtestant Deaconess HospitalComment on above:Performed By: #### OUTREACH CMP, OUTREACH LIPID, OUTREACH TSH, CBCNOOUTREACH #### [facility] [address] [place] [address] USACMP Outreachon 78-14-7486Hoktqco [Mass/Vol]4.0 g/dLNormal 3.2-5.5FProtestant Deaconess HospitalComment on above:Performed By: #### OUTREACH CMP, OUTREACH LIPID, OUTREACH TSH, CBCNOOUTREACH #### [facility] [address] [place] [address] USAALP [Catalytic activity/Vol]42 U/HJmoozj54-19EkhkazcymKettering Health Main CampusComment on above:Performed By: #### OUTREACH CMP, OUTREACH LIPID, OUTREACH TSH, CBCNOOUTREACH #### [facility] [address] [place] [address] USAALT [Catalytic activity/Vol]21 U/DRepswv18-88QbjjbjccxKettering Health Main CampusComment on above:Performed By: #### OUTREACH CMP, OUTREACH LIPID, OUTREACH TSH, CBCNOOUTREACH #### [facility] [address] [place] [address] USAAnion gap [Moles/Vol]9.3 mmol/LNormal6.0-15.0[facility] CampusComment on above:Performed By: #### OUTREACH CMP, OUTREACH LIPID, OUTREACH TSH, CBCNOOUTREACH #### [facility] [address] [place] [address] USAAST [Catalytic activity/Vol]22 U/EObffdh16-75VdiyiyymaKettering Health Main CampusComment on above:Performed By: #### OUTREACH CMP, OUTREACH LIPID, OUTREACH TSH, CBCNOOUTREACH #### [facility] [address] [place] [address] USABilirubin [Mass/Vol]0.6 mg/dLNormal0.3-1.2FProtestant Deaconess HospitalComment on above:Performed By: #### OUTREACH CMP, OUTREACH LIPID, OUTREACH TSH, CBCNOOUTREACH #### [facility] [address] [place] [address] USACalcium [Mass/Vol]9.2 mg/dLNormal8.2-10.2FProtestant Deaconess HospitalComment on above:Performed By: #### OUTREACH CMP, OUTREACH LIPID, OUTREACH TSH, CBCNOOUTREACH #### [facility] [address] [place] [address] USAChloride [Moles/Vol]103 mmol/KJtviqq16-698LjiawvfklKettering Health Main CampusComment on above:Performed By: #### OUTREACH CMP, OUTREACH LIPID, OUTREACH TSH, CBCNOOUTREACH #### [facility] [address] [id number] USACO2 [Moles/Vol]27.8 mmol/UJmkcpv85.0-30.0[facility] CampusComment on above:Performed By: #### OUTREACH CMP, OUTREACH LIPID, OUTREACH TSH, CBCNOOUTREACH #### [facility] [address] [place] [address] USACreatinine [Mass/Vol]0.62 mg/dLNormal0.44-1.03[facility] CampusComment on above:Performed By: #### OUTREACH CMP, OUTREACH LIPID, OUTREACH TSH, CBCNOOUTREACH #### [facility] [address] [place] [address] USAEstimated GFR ( Sara> 60NormalKettering Health Main CampusComment on above:Result Comment: GFR estimated reference range: According to KDOQI guidelines, <60 ml/min/1.73m2 is sufficient to diagnose a patient with chronic kidney disease.Performed By: #### OUTREACH CMP, OUTREACH LIPID, OUTREACH TSH, CBCNOOUTREACH #### [facility] [address] [place] [address] USAEstimated GFR (Non- Am> 60NormBlanchard Valley Health SystemComment on above:Performed By: #### OUTREACH CMP, OUTREACH LIPID, OUTREACH TSH, CBCNOOUTREACH #### [facility] [address] [place] [id number] USAGlucose [Mass/Vol]91 mg/jRKbxirp21-425XfhezfqmcKettering Health Main CampusComment on above:Result Comment: Random Glucose Reference Range is dependent on time and content of last meal. Glucose of more than 200 mg/dL in a nonstressed, ambulatory subject supports the diagnosis of Diabetes Mellitus. ADA recommended reference rangePerformed By: #### OUTREACH CMP, OUTREACH LIPID, OUTREACH TSH, CBCNOOUTREACH #### [facility] [address] [place] [id number] USAPotassium [Moles/Vol]4.1 mmol/LNormal3.5-5.1FProtestant Deaconess HospitalComment on above:Performed By: #### OUTREACH CMP, OUTREACH LIPID, OUTREACH TSH, CBCNOOUTREACH #### [facility] [address] [place] [address] USAProtein [Mass/Vol]6.8 g/dLNormal6.1-7.9K[facility] Health Main CampusComment on above:Performed By: #### OUTREACH CMP, OUTREACH LIPID, OUTREACH TSH, CBCNOOUTREACH #### [facility] [address] [place] [id number] USASodium [Moles/Vol]136 mmol/AWgaups274-073AmvsivfmvKettering Health Main CampusComment on above:Performed By: #### OUTREACH CMP, OUTREACH LIPID, OUTREACH TSH, CBCNOOUTREACH #### [facility] [address] [place] [id number] USAUrea nitrogen [Mass/Vol]9 mg/dLNormal9-23K[facility]tering Health Main CampusComment on above:Performed By: #### OUTREACH CMP, OUTREACH LIPID, OUTREACH TSH, CBCNOOUTREACH #### [facility] [address] [place] [address] USACholesterol [Mass/volume] in Serum or PlasmaOrdered By: OUTREACH [facility] on 30-23-8674Lpdszdsothh [Mass/Vol]180 mg/pM506-386PhbnbrcouKettering Health Main CampusComment on above:Chol less than 200 mg/dl low riskChol 201-239 mg/dl borderline riskChol 240 mg/dl and greater high riskCholesterol in LDL Calc [Mass/Vol]Ordered By: [facility] on 68-22-2324Jvfwwnuczwf in LDL [Mass/Vol]113 mg/dL0-100K[facility] Main CampusComment on above: LDL ATP III CLASSIFICATIONLDL less than 100 mg/dL OptimalLDL 100-129 mg/dL Near or above qwvspbaOWQ851-580 mg/dL Borderline highLDL 160-189 mg/dL HighLDL greater than 189 mg/dL Very highCholesterol in VLDL Calc [Mass/Vol]Ordered By: [facility] on 25-15-4957Avnddnmqvpr in VLDL [Mass/Vol]11 mg/dLKettering Health Main CampusCreatinine and Glomerular filtration rate.predicted panel (S/P/Bld)Ordered By: [facility] on 66-92-1103Suqtjuzcty [Mass/Vol]0.62 mg/dL0.44-1.03K[facility]tering Health Main CampusErythrocyte distribution width Auto (RBC) [Ratio]Ordered By: [facility] on 49-47-2600Ovcuajeszyw distribution width (RBC) [Ratio]12.9 %11.9-15.3FProtestant Deaconess Hospital Estimated glomerular filtration rate (GFR) non- AmericanOrdered By: OUTREACH [facility] on 34-30-8105XGN/1.73 sq M.predicted among non-blacks MDRD (S/P/Bld) [Vol rate/Area]> 60 mL/MinKettering Health Main CampusHematocrit Auto (Bld) [Volume fraction]Ordered By: OUTREACH [facility] on 03-13-2022 Hematocrit (Bld) [Volume fraction]42.3 %34.0-46.4FProtestant Deaconess HospitalHemoglobin [Mass/volume] in BloodOrdered By: [facility] on 93-35-5221Mtmeucqvdv (Bld) [Mass/Vol]14.1 g/dL11.8-15.4FProtestant Deaconess HospitalLeukocytes [#/volume] corrected for nucleated erythrocytes in Blood by Automated counOrdered By: [facility] on 63-97-8965QDA corrected for nucl RBC Auto (Bld) [#/Vol]6.6 10*3/uL3.8-11.6FProtestant Deaconess HospitalLipid Profile Outreachon 49-36-3379Jdvnbegswya [Mass/Vol]180 mg/dLNormal 140-200K[facility] Health Main CampusComment on above:Result Comment: Chol less than 200 mg/dl low risk Chol 201-239 mg/dl borderline risk Chol 240 mg/dl and greater high riskPerformed By: #### OUTREACH CMP, OUTREACH LIPID, OUTREACH TSH, CBCNOOUTREACH #### [facility] [address] [place] [address] USACholesterol in HDL [Mass/Vol]56 mg/vECycwgc35-51FnltqghizKettering Health Main CampusComment on above:Result Comment: HDL CHOL ATP-III CLASSIFICATION Cardiovascular Risk HDL > or equal to 60 mg/dL LOW HDL < 40 mg/dL HIGHPerformed By: #### OUTREACH CMP, OUTREACH LIPID, OUTREACH TSH, CBCNOOUTREACH #### [facility] [address] [place] [address] USACholesterol.total/Cholesterol in HDL [Mass ratio]3.2 {ratio}Normal<5.0K[facility] Health Main CampusComment on above:Performed By: #### OUTREACH CMP, OUTREACH LIPID, OUTREACH TSH, CBCNOOUTREACH #### [facility] [address] [place] [address] USALDL Cholesterol,Vrcyufpytq790 mg/dLHigh0-100[facility] Main CampusComment on above:Result Comment: LDL ATP III CLASSIFICATION LDL less than 100 mg/dL Optimal LDL 100-129 mg/dL Near or above optimal LDL 130-159 mg/dL Borderline high LDL 160-189 mg/dL High LDL greater than 189 mg/dL Very highPerformed By: #### OUTREACH CMP, OUTREACH LIPID, OUTREACH TSH, CBCNOOUTREACH #### [facility] [address] [place] [id number] USATriglyceride w/Fiuxbw62 mg/kVNqsnka89-033NiltgqxdmKettering Health Main CampusComment on above:Result Comment: TRIG ATP III CLASSIFICATION TRIG less than 150 mg/dL Normal TRIG 150-199 mg/dL Borderline high TRIG 200-500 mg/dL High TRIG greater than 500 mg/dL Very high Standard traceable to the Center for Disease Conrtrol and Prevention (CDC) test method.Performed By: #### OUTREACH CMP, OUTREACH LIPID, OUTREACH TSH, CBCNOOUTREACH #### [facility] [address] [place] [id number] USAVLDL MUHXBEJZUFU84 mg/dLNoGalion Community HospitalComment on above:Performed By: #### OUTREACH CMP, OUTREACH LIPID, OUTREACH TSH, CBCNOOUTREACH #### [facility] [address] [place] [id number] [facility] Auto (RBC) [Entitic mass]Ordered By: [facility] on 73-17-2694SGE (RBC) [Entitic mass]30.6 pg24.7-34.3FGrand Lake Joint Township District Memorial HospitalHC Auto (RBC) [Mass/Vol]Ordered By: [facility] on 51-70-9814JGVZ (RBC) [Mass/Vol]33.2 g/dL32.0-35.0K[facility] Health Main CampusMCV Auto (RBC) [Entitic vol]Ordered By: [facility] on 03-13-2022 MCV (RBC) [Entitic vol]92.0 mR28-633CuqtivellKettering Health Main CampusNo Panel InformationOrdered By: [facility] on 08-16-7647Kjizbbhqm GFR ()> 60 mL/MinKettering Health Main CampusComment on above:GFR estimated reference range: According to KDOQI guidelines, <60 ml/min/1.73m2 is sufficient todiagnose a patient with chronic kidney disease.Pharmacy Creatinine Clearance (ChemN/[facility] Private HospitalTriglycerides Ihwseo81 mg/dL 35-149K[facility] Health Main CampusComment on above:TRIG ATP III CLASSIFICATIONTRIG less than 150 mg/dL NormalTRIG 150-199 mg/dL Borderline highTRIG 200-500 mg/dL High TRIG greater than 500 mg/dL Very highStandard traceable to the Center for Disease Conrtrol and Prevention (CDC) test method. Platelet mean volume Auto (Bld) [Entitic vol]Ordered By: [facility] on 20-75-6518Sgilgxos mean volume (Bld) [Entitic vol]8.6 fL6.3-10.7FProtestant Deaconess HospitalPlatelets Auto (Bld) [#/Vol]Ordered By: OUTREACH [facility] on 38-24-7010Ozqfksyux (Bld) [#/Vol]283 10*3/qT593-097LsvnanxhzKettering Health Main CampusProtein [Mass/volume] in Serum or PlasmaOrdered By: [facility] on 07-94-4451Xhvatmu [Mass/Vol]6.8 g/dL6.1-7.9K[facility] Main CampusRBC Auto (Bld) [#/Vol]Ordered By: OUTREACH [facility] on 22-09-5353GIW (Bld) [#/Vol]4.60 10*6/uL3.60-5.00Grant Hospitalerum or plasma alanine aminotransferase measurement without P-5'-P (enzymatic activiOrdered By: OUTREACH [facility] on 14-11-6977WCT No additional P-5'-P [Catalytic activity/Vol]21 U/X90-79IlinzakfwGrant Hospitalerum or plasma alkaline phosphatase measurement (enzymatic activity/volume)Ordered By: OUTREACH [facility] on 96-66-2788OAQ [Catalytic activity/Vol]42 U/L32-92 Grant Hospitalerum or plasma anion gap determinationOrdered By: OUTREACH [facility] on 52-89-9097Gjigo gap [Moles/Vol]9.3 mmol/L6.0-15.0 Grant Hospitalerum or plasma aspartate aminotransferase measurement (enzymatic activity/volume)Ordered By: OUTREACH [facility] on 17-06-9429XUN [Catalytic activity/Vol]22 U/E13-78DdhmqotelGrant Hospitalerum or plasma calcium measurement (mass/volume)Ordered By: OUTREACH [facility] on 43-91-7124Epvqjxs [Mass/Vol]9.2 mg/dL8.2-10.2FSamaritan North Health Centererum or plasma chloride measurement (moles/volume)Ordered By: [facility] on 31-32-8687Rjdhbdxn [Moles/Vol]103 mmol/V83-428MifcqcltnGrant Hospitalerum or plasma glucose measurement (mass/volume)Ordered By: [facility] on 76-60-9229Wyvegso [Mass/Vol]91 mg/kE50-828DuhaypqlzKettering Health Main CampusComment on above:ADA recommended reference rangeRandom Glucose Reference Range is dependent on time and content of last meal. Glucose of more than 200 mg/dL in a nonstressed, ambulatory subject supports the diagnosisof Diabetes Mellitus.Serum or plasma high density lipoprotein (HDL) cholesterol measurementOrdered By: [facility] on 07-78-7632Burxodshkav in HDL [Mass/Vol]56 mg/sR99-42TryfsofgrKettering Health Main CampusComment on above: HDL CHOL ATP-III CLASSIFICATION Cardiovascular RiskHDL > or equal to 60 mg/dL LOWHDL < 40 mg/dL HIGHSerum or plasma potassium measurement (moles/volume) Ordered By: [facility] on 40-21-2658Czwljdfrv [Moles/Vol]4.1 mmol/L 3.5-5.1FSamaritan North Health Centererum or plasma sodium measurement (moles/volume)Ordered By: [facility] on 82-95-1307Jzjedy [Moles/Vol]136 mmol/B039-316RvfkizkwkGrant Hospitalerum or plasma total bilirubin measurement (mass/volume)Ordered By: [facility] on 01-58-2549Viznqbsqo [Mass/Vol]0.6 mg/dL0.3-1.2FSamaritan North Health Centererum or plasma total carbon dioxide measurement (moles/volume)Ordered By: [facility] on 92-52-0305WU5 [Moles/Vol]27.8 mmol/L22.0-30.0[facility] Serum or plasma total cholesterol/high density lipoprotein (HDL) cholesterol mass ratOrdered By: [facility] on 03-13-2022 Cholesterol.total/Cholesterol in HDL [Mass ratio]3.2 {ratio}<5.0Grant Hospitalerum or plasma urea nitrogen measurement (mass/volume) Ordered By: OUTREACH [facility] on 53-94-1056Ckhv nitrogen [Mass/Vol]9 mg/dL9-23 [facility] CampusTSH DL <= 0.005 mIU/L QnOrdered By: OUTREACH COMMUNITY on 93-48-9920TDO Qn3.87 m[IU]/L0.45-5.33[facility] Main CampusThyroid Stimulating Hormoneon 88-80-4528FKW Qn3.87 m[IU]/LNormal0.45-5.33 [facility] CampusComment on above:Result Comment: PERFORMED BY: [facility] [address] [place] [id number] PATHOLOGIST WORK DISTRIBUTOR YEN ESCOBAR M.D.Performed By: #### OUTREACH CMP, OUTREACH LIPID, OUTREACH TSH, CBCNOOUTREACH #### [place] [id number] [facility] Vital Signs Date TimeVital SignValuePerforming GitfxrhklJuxgxosm22-56-8727 10:54-0500Body mass index (BMI) [Ratio]33.27 kg/p3Sivif Lalitha DO Work Phone: [phone] [place], [place] [address]Bncayndtwa64-31-6763 10:54-0500Body jahozg00.91 kgCorey Lalitha DO Work Phone: [phone] [place], [place] [address]Xizhzgyhly77-26-9228 10:54-0500Diastolic blood kuaaohnr90 mm[Hg]Morro Lalitha DO Work Phone: [phone] [place], [place] [address]Uvfyitpzur01-16-2794 10:54-0500Systolic blood jiorphpi195 mm[Hg]Morro Lalitha DO Work Phone: [phone] [place], [place] [address]Pztiewlrbn71-79-9701 09:38-0400Body mass index (BMI) [Ratio]32.79 kg/m2Sunshine THAO Work Phone: [phone] HealthChysfsmeay88-69-7064 09:38-0400Body .64 kgSunshine THAO Work Phone: [phone] HealthKnavpenkht83-82-1903 09:38-0400Diastolic blood bvefyvqu05 mm[Hg]Sunshine THAO Work Phone: [facility] HealthNixdxayzvk61-91-8057 09:38-0400Systolic blood skmemafn527 mm[Hg]Sunshine THAO Work Phone: [phone]-[facility]ps HealthSgmxukaied59-53-0542 10:35-0400Body mass index (BMI) [Ratio]32.17 kg/e5ZjgjfosxWalter Lambly ZONE MANAGER Work Phone: [phone]-[facility] HospitalPhelps HealthAvzvdtrmvv50-11-4325 10:35-0400Body vqaxga11 kg Walter Pierreerly ZONE MANAGER Work Phone: [phone] [place], [place] [address]Xrepepuvdy38-22-1200 10:35-0400Diastolic blood tvbatvnc60 mm[Hg]Walter Emeli ZONE MANAGER Work Phone: [phone] [place], [place] [address]Qnfqzpbqvk69-87-2671 10:35-0400Systolic blood mm[Hg]Walter Emeli ZONE MANAGER Work Phone: [phone] [place], [place] [address]Nrirfzknya69-98-8217 09:08-0400Body mass index (BMI) [Ratio]31.07 kg/j4EizutwerWalter Pierreerly ZONE MANAGER Work Phone: [phone] [place], [place] [address]Kszvmqreks61-48-5157 09:08-0400Body djnune87.1 kg Walter Pierreerly ZONE MANAGER Work Phone: [phone] [place], [place] [address]Mfjgspdccr05-63-9062 09:08-0400Diastolic blood llqxoatc01 mm[Hg]Walter Emeli ZONE MANAGER Work Phone: [phone] [place], [place] [address]Mjamigfcrn35-99-4318 09:08-0400Systolic blood tcpqiwop917 mm[Hg]Walter Emeli ZONE MANAGER Work Phone: [phone] [place], [place] [address]Mlnqtdtdgl03-43-6112 11:54-0400Body mass index (BMI) [Ratio]29.7 kg/m2Amy Caridad THAO Work Phone: [phone] [place], [place] [address]Xhdutuopeo71-97-4644 11:54-0400Body nejtdb28.47 kgSunshine THAO Work Phone: [phone] [place], [place] [address]Hfifbxvygo72-06-0707 11:54-0400Diastolic blood ojevczqa00 mm[Hg]Sunshine THAO Work Phone: [phone] [place], [place] [address]Mypquxtxlu67-27-8166 11:54-0400Systolic blood jsjbltpu525 mm[Hg]Sunshine THAO Work Phone: [facility] HealthDwivhhcsrk24-79-9457 09:32-0400Body mass index (BMI) [Ratio]29.35 kg/l7Ymaba Lalitha DO Work Phone: [facility] HealthLowlncxwan45-23-1342 09:32-0400Body .56 kgCorey Lalitha DO Work Phone: [facility] HealthLrgyaxgjax73-31-6055 09:32-0400Diastolic blood efslwarl65 mm[Hg]Morrorajinder Weinbergo DO Work Phone: [facility] HealthEaihhrwthe50-36-6265 09:32-0400Systolic blood mm[Hg]Morrorajinder Weinbergo DO Work Phone: [facility] HealthVcdhviiohw27-09-1503 11:05-0400Body mass index (BMI) [Ratio]29.18 kg/m2[facility]06-06-2025 11:05-0400Body vgqqke42.[address] [facility]06-06-2025 11:05-0400Diastolic blood zlpejjnz16 mm[Hg][facility]06-06-2025 11:05-0400Systolic blood pupuzjia449 mm[Hg][facility]05-20-2025 10:37-0400Body mass index (BMI) [Ratio]28.67 kg/m2Sunshine THAO Work Phone: [facility] HealthSkyikctptv67-63-8403 10:37-0400Body oxryei64.75 kgSunshine THAO Work Phone: [facility] HealthWqezexwlga04-89-4459 10:37-0400Diastolic blood fvnvjcvi97 mm[Hg]Sunshine THAO Work Phone: [facility] HealthOzpprokftq88-73-5841 10:37-0400Systolic blood elrtgdmp622 mm[Hg]Sunshine THAO Work Phone: [facility] HealthRicihybhky58-75-5764 14:00-0500Hourly Jo Quinn [facility]12-03-2024 14:00-0500Promise to ReturnEmmanMercy Health St[facility]12-03-2024 13:00-0500Hourly RoundingEmmanMer[address] Health St[facility]12-03-2024 13:00-0500 Promise [address]EmmanMer[address] [facility]12-03-2024 12:00-0500Hourly RoundingEmmanMer[address] Health [facility]12-03-2024 12:00-0500Promise to ReturnEmmanMer[facility] Health [facility] 03-13-2024 04:08-0500Heart rate61 /minEmmanmirna [facility]12-03-2024 04:08-2449AaI3% (BldA) [Mass fraction]98 %Kai [facility]12-03-2024 04:07-0500Diastolic blood mm[Hg][facility]12-03-2024 04:07-0500Mean blood ivprnnvo16 mm[Hg][facility]ai[facility]12-03-2024 04:07-0500Systolic blood akiemket73 mm[Hg]Kai [facility]12-03-2024 04:00-0500Blood Pressure LocationEmeveretteMercy Health St. [facility]12-03-2024 04:00-0500Body qsfjpndxzen15.88 [degF]Kai [facility]12-03-2024 01:00-0500Blood Pressure Location [facility]Mer[facility] Health [facility]12-03-2024 01:00-0500Diastolic blood ikrxpyip28 mm[Hg][facility]12-03-2024 01:00-0500Heart rate67 /minEarabellanmirna [facility] 03-13-2024 01:00-0500Mean blood vvxtmmal65 mm[Hg]Kai [facility]12-03-2024 01:00-0500Systolic blood mm[Hg][facility]ai [facility]-2024 00:49-0500Heart rate63 /min Kai [facility]12-03-2024 00:49-8580AhB9% (BldA) [Mass fraction]98 %Kai [facility]12-03-2024 00:49-0500Diastolic blood mm[Hg]Kai [facility]12-03-2024 00:49-0500Mean blood jcgqgvzo29 mm[Hg]Kai [facility]12-03-2024 00:49-0500Systolic blood tduoiqcq25 mm[Hg]Kai [facility]12-03-2024 00:49-0500Body .52 [degF]Kai [facility]12-02-2024 19:41-7508SoY6% (BldA) [Mass fraction]99 %Kai [facility]12-02-2024 19:40-0500Body ppcpjtdkalf17.88 [degF]Kai [facility]12-02-2024 19:40-0500Mean blood yqganrku09 mm[Hg]Kai [facility]12-02-2024 16:00-0500Body fqrxvftkpiq74.24 [degF]Kai [facility]12-02-2024 13:01-0500Body ivzustrkuil52.88 [degF]Kai [facility]12-02-2024 13:00-0500Heart rate87 /minEjosué [facility] 03-12-2024 11:53-0500Mean blood hzeklvjd81 mm[Hg]Kai [facility]12-02-2024 11:53-0500Respiratory rate13 /[facility]Mer[facility]12-02-2024 11:00-0500Mean blood mm[Hg]Kai [facility]12-02-2024 10:30-0500Respiratory rate11 /[facility]Mer[facility]12-02-2024 07:04-0500 Respiratory rate16 /[facility]Mer[facility]12-02-2024 05:46-0500Heart rate84 /[facility] Encounters Encounter DateEncounter TypeCare ProviderFacilityStart: 02-20-2025 End: 66-81-6404Wbglto flowsheetCorey Lalitha DO Work Phone: [facility] OBGYNStart: 02-20-2025 End: 40-98-9216Itqlpi flowsheetCorey Lalitha DO Work Phone: [facility] [place] [facility]BGYNStart: 02-20-2025 End: 58-73-4338Rspardia flow sheetCorey Lalitha DO Work Phone: [facility]le OBGYNComment on above:29 weeks gestation of ([facility]); Third trimester ([facility]); Pruritus; Vasovagal episode; size inconsistent with dates ([facility])Start: 02-20-2025 End: 28-71-8521epxipjsqdpXZNRO FAZIONot AvailableStart: 02-06-2025 End: 25-45-2506Vnkofa Jimmy THAO Work Phone: [facility] [place] [facility]BGYNStart: 02-06-2025 End: 08-45-0837Oyzywg Jimmy THAO Work Phone: [facility] [place] OBGYNStart: 02-06-2025 End: 51-88-4420Tuidiuvi flow Yi THAO Work Phone: [facility] OBGYNComment on above:Second trimester ([facility]); 27 weeks gestation of ([facility])Start: 02-06-2025 End: 89-76-4150dcduvzqstrZMD RAMEYNot AvailableStart: 01-28-2025 End: 73-28-9630Bdemtt outpatient new 20 minutesLiving[facility] PA Work Phone: noMS Orr DermatologyComment on above:Melanocytic nevus of left upper extremity (Primary Dx); Melanocytic nevus, unspecified locationStart: 01-28-2025 End: 47-39-3505fmhavgwwpiZSMHK NORTHEIMNot AvailableStart: 01-28-2025 End: 10-59-6121Kjcieo flowsUF Health [facility] PA Work Phone: noms Amy DermatologyStart: 01-28-2025 End: 08-89-9803Hfsbnz [facility] PA Work Phone: noMS Orr DermatologyStart: 01-22-2025 End: 74-81-6394Pefszxgzb Result EncounterKristina Emeli ZONE MANAGER Work Phone: noms External Department UnsolicitedStart: 01-22-2025 End: 20-63-9127Cfjayrhdb Result EncounterKristina Emeli ZONE MANAGER Work Phone: noms External Department UnsolicitedStart: 01-15-2025 End: 49-05-7239Pwrcea flowsheetKristina Emeli ZONE MANAGER Work Phone: [facility] OBGYNStart: 01-15-2025 End: 46-23-1087Wqtfkc flowsheetKristina Emeli ZONE MANAGER Work Phone: noMS [facility] OBGYNStart: 01-15-2025 End: 94-48-4859Iuqcpu outpatient visit 15 minutesKristina Emeli ZONE MANAGER Work Phone: [facility] OBGYNComment on above:24 weeks gestation of ([facility]); Second trimester ([facility]); Diabetes mellitus screening; PruritusStart: 01-15-2025 End: 02-85-3904ykzcpmgnzgUPJXBKFS EBERLYNot AvailableStart: 12-17-2024 End: 73-03-4527Bmmanr outpatient visit 15 minutesWalter Sainz NP Work Phone: [facility] OBGYNComment on above:Second trimester ([facility]); 20 weeks gestation of ([facility]); Vasovagal episodeStart: 12-17-2024 End: 00-24-2072ktabmkecehCZCJCNEX EBERLYNot AvailableStart: 11-13-2024 End: 70-20-8138Bxgkwv outpatient visit 15 minutesSunshine THAO Work Phone: [facility] OBGYNComment on above:Second trimester ([facility]); 15 weeks gestation of ([facility]); Vasovagal episode; Need for maternal serum alpha-protein (MSAFP) screening ([facility]); Screening, , for anatomic survey ([facility])Start: 11-13-2024 End: 05-94-9851cjwnmedobfAPP RAMEYNot AvailableStart: 11-05-2024 End: 53-19-0420djooswvlzfYBK RAMEYNot AvailableStart: 11-05-2024 End: 22-51-5903Ppyjzrrk flow Yi THAO Work Phone: [facility] OBGYNComment on above:Second trimester ([facility]); 14 weeks gestation of ([facility]); Vasovagal symptom; Screen for STD (sexually transmitted disease); Yeast infectionStart: 11-05-2024 End: 72-81-6588Fgprwu Jimmy TAHO Work Phone: [facility] OBGYNStart: 11-05-2024 End: 36-35-8287Nmlups Jimmy THAO Work Phone: [facility] [place] OBGYNStart: 10-16-2024 End: 75-24-3234Tdnbak flowsheetCorey Lalitha DO Work Phone: [facility] OBStart: 10-16-2024 End: 67-43-6066Kfkmbo flowsheetCorey Lalitha DO Work Phone: [facility] OBStart: 10-16-2024 End: 63-59-1172Nnntfedc flow sheetCorey Lalitha DO Work Phone: [facility] BCP OBComment on above:First trimester ([facility]); 11 weeks gestation of ([facility]); Vasovagal episodeStart: 10-16-2024 End: 68-49-0954jensgdlnjyEASPQ FAZIONot AvailableStart: 10-08-2024 End: 70-74-6375Zoimhkpji Result EncounterCorey Lalitha DO Work Phone: [facility] External Department UnsolicitedStart: 10-08-2024 End: 59-85-8514Mbjruquwl Result EncounterCorey Lalitha DO Work Phone: [facility] External Department UnsolicitedStart: 09-14-2024 End: 61-62-5406Kkfrblxgv Result EncounterCorey Lalitha DO Work Phone: [facility] External Department UnsolicitedStart: 09-14-2024 End: 01-09-0385Azpfssfom Result EncounterCorey Lalitha DO Work Phone: [facility] External Department UnsolicitedStart: 09-14-2024 End: 16-18-3043mupmbcggthMOI Katya AvailableStart: 09-14-2024 End: 07-62-8679Vnbmmr outpatient visit 5 minutesNoms Bcp Ob Lalitha NurseNOMS BCP OBComment on above:GA: 2w2nSdoct: 08-30-2024 End: 60-06-0432jjhjrwqoqpVLD RAMEYNot AvailableStart: 08-28-2024 End: 27-29-9452Yncobc Jimmy THAO Work Phone: [facility] OBStart: 08-28-2024 End: 80-00-2799Prbobs Jimmy THAO Work Phone: [facility] OBStart: 08-28-2024 End: 39-69-8441Jigpvonfs Result EncounterSunshine Caridad THAO Work Phone: noMS External Department UnsolicitedStart: 08-28-2024 End: 11-17-1656Ekqqbxqj Result EncounterSunshine Caridad THAO Work Phone: [facility] External Department UnsolicitedStart: 08-28-2024 End: 48-36-3703zutjolgzoeRZG CARIDADNot AvailableStart: 08-28-2024 End: 07-09-8231Jkumgzj encounter procedureSunshine Caridad THAO Work Phone: [facility] Work Phone: Start: 08-28-2024 End: 21-12-0532Iezperlk preventive med est patient 18-39 yrsSunshine Caridad THAO Work Phone: noms BCP OBComment on above:Well woman exam with routine gynecological exam; Missed mensesStart: 06-04-2024 End: 55-91-1438vdbactlydiJEATTHUCentennial Peaks Hospitaltart: 06-04-2024 End: 47-54-8315Vgdzhydvob hospital visit by Radha Ba DO Work Phone: [facility]vasive CardiologyComment on above:Palpitations; Pre-syncopeStart: 03-12-2024 End: 57-48-4194axuecmqgchYgicsag J. PasterFacility:FTMCStart: 03-12-2024 Emergency department patient visitDO Tuan LovellFacility:FTMCStart: 03-12-2024 End: 92-44-5564XrdupervaidObpneoin E. OfungwFostoria City Hospital Start: 05-26-2022 End: 84-12-8653yrwneqfnhqRN MORRO DOTY .Facility:N4Oasou: 05-12-2022 End: 30-02-3475ybcmirootmGY MORRO DOTY .Facility:Q3Hfqfi: 03-13-2022 End: 34-12-9818ysxnnmbciiPuxvmied CommunityFacility:[facility] Hospitaltart: 03-13-2022 End: 26-62-2663uekwvbcurkHVSKPDJIV NO [facility] Work Phone: Start: 03-13-2022 End: 85-45-6726Ucajmknc ReferredPHYSICIAN NO [facility]-Community Outreach Procedures DateProcedureProcedure DetailPerforming ClinicianStart: 54-67-4198Culqd dip stick/tablet rgnt non-auto w/o micrscpCorey Lalitha DO Work Phone: Start: 93-14-9576Azgjc dip stick/tablet rgnt non-auto w/o micrscpAmy Caridad PA Work Phone: Start: 98-48-2737BSQ CBC WITH AUTO DIFFKristina Emeli ZONE MANAGER Work Phone: Start: 99-09-7427Quufn dip stick/tablet rgnt non-auto w/o micrscpKristina Emeli ZONE MANAGER Work Phone: Start: 48-70-3003Utqne dip stick/tablet rgnt non-auto w/o micrscpKristina Emeli ZONE MANAGER Work Phone: Start: 91-70-9821Vwlrx dip stick/tablet rgnt non-auto w/o micrscpAmy Caridad PA Work Phone: Start: 04-08-5284Knpzy dip stick/tablet rgnt non-auto w/o micrscpAmy Caridad PA Work Phone: Start: 49-32-8106Crbvk dip stick/tablet rgnt non-auto w/o micrscpCorey Lalitha DO Work Phone: Start: 28-10-6021JNR CBC WITH AUTO DIFFCorey Lalitha DO Work Phone: Start: 34-72-8359PI OB TRANSVAGINALCorey Lalitha DO Work Phone: Start: 68-51-3929Dteiu test visual color cmprsn methsCemma Weinbergo DO Work Phone: Start: 11-02-5171YAAQDQUDY VAGINITIS (HTRX)Sunshine THAO Work Phone: Start: 80-92-9679VYH PREG QUANT HCGAmy Caridad THAO Work Phone: Start: 87-46-6439Cpese test visual color cmprsn methsAmy Caridad THAO Work Phone: None (qualifier value)Kai Thor Plan of Treatment DateCare ActivityDetailAuthorStart: 03-06-2025 End: 50-71-4795Mbvotxr encounter nycqiznhx08/26/2025 9:30 AM EST Routine [facility] [address] [place], [id number] Walter Sainz, ZONE MANAGER [address] [place] [phone] [facility] OBGYNStart: 03-06-2025 End: 07-93-0001Zkidjadyiymn / ancillary services yqoofueiui02/26/2025 9:00 AM EST Ancillary Procedure [facility] [address] [place] [phone] NOMS [facility]le OBGYNStart: 02-20-2025 End: 62-05-8759ER for pregnancyUS OB follow up transabdominal approach Imaging Routine 29 weeks gestation of ([facility]) size inconsistent with dates ([facility]) Expected: 02/20/2025, Expires: 06/20/2025[facility] Work Phone: comment on above:Expected: 02/20/2025, Expires: 06/20/2025Start: 02-20-2025 End: 50-76-8871Pipgums encounter procedureNOMS Krystle OBGYNComment on above: ArrivedStart: 02-06-2025 End: 86-29-1121Pjeaznp encounter procedureNOMS [place] OBGYNComment on above: ArrivedStart: 01-31-2025 End: 61-04-7587Zvbxsbl encounter sapdyatgj05/23/2025 3:50 PM EDT Office Visit [facility] [address] [place] [phone] Marcos Lucero, PA [address] [place] [address] [facility]ermatologyStart: 01-28-2025 End: 25-56-5680Dgwzuvz encounter idfldsggz11/20/2025 3:40 PM EDT Office Visit [facility] [address] [place] [address] Marcos Lucero, PA [address] [place] [address] ArrivedNOMS Orr DermatologyComment on above:ArrivedStart: 01-15-2025 End: 45-88-2365Gyla acids, totalBile acids, total Lab Routine Pruritus Expected: 01/15/2025 (Approximate), Expires: 01/15/2026[facility] HealthcareComment on above: Expected: 01/15/2025 (Approximate), Expires: 01/15/2026Start: 01-15-2025 End: 79-31-7215BWM panel - Blood by Automated countCBC Lab Routine Diabetes mellitus screening Expected: 01/15/2025 (Approximate), Expires: 01/15/2026[facility] Healthcare Work Phone: comment on above:Expected: 01/15/2025 (Approximate), Expires: 01/15/2026Start: 01-15-2025 End: 33-24-2357JAV W Auto Differential panel - BloodCBC and differential Lab Routine Pruritus Expected: 01/15/2025 (Approximate), Expires: 01/15/2026[facility] HealthcareComment on above:Expected: 01/15/2025 (Approximate), Expires: 01/15/2026Start: 01-15-2025 End: 91-21-2809Chsmkku function 2000 panel - Serum or PlasmaHepatic function panel Lab Routine Pruritus Expected: 01/15/2025 (Approximate), Expires: 01/15/2026[facility] HealthcareComment on above:Expected: 01/15/2025 (Approximate), Expires: 01/15/2026Start: 01-15-2025 End: 55-59-5339Ptwvfzkjd C virus Ab [Presence] in Serum or Plasma by Immunoassay Hepatitis C antibody Lab Routine Pruritus Expected: 01/15/2025 (Approximate), Expires: 01/15/2026[facility] HealthcareComment on above:Expected: 01/15/2025 (Approximate), Expires: 01/15/2026Start: 01-15-2025 End: 60-53-6544Iqpyliwzicx of glucose 1 hour after glucose challenge for glucose tolerance testGlucose tolerance, 1 hour Lab Routine Diabetes mellitus screening Expected: 01/15/2025 (Approximate), Expires: 01/15/2026[facility] HealthcareComment on above:Expected: 01/15/2025 (Approximate), Expires: 01/15/2026Start: 01-15-2025 End: 81-09-7428Mjyjoqgmcrb [Units/volume] in Serum or PlasmaTSH Lab Routine Pruritus Expected: 01/15/2025 (Approximate), Expires: 01/15/2026[facility] Healthcare Comment on above:Expected: 01/15/2025 (Approximate), Expires: 01/15/2026Start: 01-15-2025 End: 38-76-4450Ketyrnw encounter procedureNOMS [place] OBGYNComment on above: ArrivedStart: 12-17-2024 End: 73-98-1280Dlcuuru encounter smjusaipr43/08/2025 9:20 AM EDT Routine [facility] [address] [place], [id number] Morro Doty DO [address] [place] [address] NOMS Krystle OBGYNStart: 12-17-2024 End: 61-36-6719Wavwxuyekleo / ancillary services tqoowshyug59/08/2025 8:00 AM EDT Ancillary Procedure [facility] [address] [place] [address] [place] [address] [facility] Krystle OBGYNStart: 11-13-2024 End: 86-20-9552Jgmig fetoprotein, maternalAlpha fetoprotein, maternal Lab Routine Need for maternal serum alpha-protein (MSAFP) screening ([facility]) Expected: 11/13/2024 (Approximate), Expires: 01/13/2025[facility] Work Phone: comment on above:Expected: 11/13/2024 (Approximate), Expires: 01/13/2025Start: 11-13-2024 End: 39-99-5887JY for pregnancyUS OB 14+ weeks anatomy scan Imaging Routine Screening, , for anatomic survey ([facility]) Expected: 11/13/2024 (Approximate), Expires: 02/13/2025NOMS HealthcareComment on above:Expected: 11/13/2024 (Approximate), Expires: 02/13/2025Start: 11-13-2024 End: 87-43-3418Lonkjut encounter procedureNOMS BCP OBStart: 10-16-2024 End: 91-24-3542Ycesktl encounter procedureNOMS BCP OBComment on above:Arrived Start: 82-23-9385Pdnjxhcwfm ScreenDepression ScreenBon [facility] Start: 09-14-2024 End: 23-12-6254XAF/RhABO/Rh Lab Routine Missed menses , unspecified gestational age Expected: 09/14/2024 (Approximate), Expires: 09/14/2025[facility] HealthcareComment on above:Expected: 09/14/2024 (Approximate), Expires: 09/14/2025Start: 09-14-2024 End: 37-52-8330Fwzyw type and Indirect antibody screen panel - BloodType and screen Lab Routine Missed menses , unspecified gestational age Expected: 09/14/2024 (Approximate), Expires: 09/14/2025[facility] Work Phone: comment on above:Expected: 09/14/2024 (Approximate), Expires: 09/14/2025Start: 09-14-2024 End: 81-32-8366Swcnn of abuse panel - Urine by Screen methodRapid drug screen, urine Lab Routine , unspecified gestational age Encounter for supervision of normal first in first trimester Expected: 09/14/2024 (Approximate), Expires: 09/14/2025NOMS HealthcareComment on above:Expected: 09/14/2024 (Approximate), Expires: 09/14/2025Start: 08-30-2024 End: 89-98-3855gntzkmwewm99/22/2025 2:00 PM EDT Initial N[facility] [address] [place] [address] [place] [phone] BCP OBStart: 08-30-2024 End: 14-04-3961Bxcskiuigvph / ancillary services vlekctcwdp73/22/2025 1:30 PM EDT Ancillary Procedure NOM[facility] [address] [place] [address] [place] [phone] BCP OBStart: 08-28-2024 End: 64-49-8549gEC, quantitative, pregnancyhCG, quantitative, Lab Routine Missed menses Expected: 08/28/2024 (Approximate), Expires:08/28/2025NOMS HealthcareComment on above:Expected: 08/28/2024 (Approximate), Expires: 08/28/2025Start: 08-28-2024 End: 33-43-9375OQ Pelvis transvaginalUS OB transvaginal Imaging Routine Missed menses Expected: 08/28/2024, Expires: 11/28/2024NOMS HealthcareComment on above: Expected: 08/28/2024, Expires: 11/28/2024Start: 01-35-7239FUBWZ-19 Vaccine ( season)COVID-19 Vaccine ( season)[facility] Start: 14-45-0293Hlnwnkjag vaccinationFlu vaccine (#1)[facility] Start: 04-26-5417Ljbexrxvn for malignant neoplasm of cervixPap smearSentara Princess Anne HospitalStart: 31-17-0439JTzT/Tdap/Td vaccine (1 - Tdap)DTaP/Tdap/Td vaccine (1 - Tdap)[facility] HospitalStart: 01-73-2976Wgqcaeejg B vaccine (1 of 3 - 19+ 3-dose series)Hepatitis B vaccine (1 of 3 - 19+ 3-dose series)[facility]: 53-10-4968Gubihwnlk C screeningHepatitis C screenSentara Princess Anne HospitalStart: 66-34-0014SCT screeningHIV screenSentara Princess Anne Hospital Start: 24-65-3971POY vaccine (1 - 3-dose series)HPV vaccine (1 - 3-dose series) [facility]art: 30-29-2282Rseyenisj vaccine (1 of 2 - 13+ 2-dose series)Varicella vaccine (1 of 2 - 13+ 2-dose series)[facility] Bacteria identified in Urine by CultureUrine culture Microbiology Routine Missed menses Ordered: 09/14/2024[facility] HealthComment on above:Ordered: 09/14/2024 CBC W Auto Differential panel - BloodCBC and differential Lab Routine Missed menses , unspecified gestational age Ordered: 09/14/2024[facility] Comment on above:Ordered: 09/14/2024HLAMYDIA TRACHOMATIS (GENITO/STI)CHLAMYDIA TRACHOMATIS (GENITO/STI) Lab Routine Screen for STD (sexually transmitted disease) Ordered: 11/05/2024[facility] HealthComment on above:Ordered: 11/05/2024 Cytology Cervical or vaginal smear or scraping studyPap Smear Pathology and Cytology Routine Well woman exam with routine gynecological exam Ordered: [facility] Work Phone: comment on above:Ordered: 08/28/2024 End: 31-36-2625Nhmjoxpo cardiac holter monitor (3 days-14 day)[facility] HospitalComment on above:1 Occurrences starting 06/04/2024 until 06/04/2024 Hemoglobin A1c/Hemoglobin.total in BloodHemoglobin A1c Lab Routine Missed menses , unspecified gestational age Ordered: 09/14/2024[facility] Comment on above:Ordered: 09/14/2024Hepatitis B virus surface Ag [Presence] in Serum or Plasma by ImmunoassayHepatitis B surface antigen Lab Routine Missed menses , unspecified gestational age Ordered: 09/14/2024[facility] Comment on above:Ordered: 09/14/2024Hepatitis C virus Ab [Presence] in Serum or Plasma by ImmunoassayHepatitis C antibody Lab Routine Missed menses , unspecified gestational age Ordered: 09/14/2024[facility] HealthcareComment on above: Ordered: 09/14/2024HIV-1/HIV-2 antigen/antibody combination immunoassayHIV-1 and HIV-2 antibodies Lab Routine Missed menses , unspecified gestational age Ordered: 09/14/2024[facility] HealthcareComment on above:Ordered: 09/14/2024 Neisseria gonorrhoeae DNA [Presence] in Unspecified specimen by JACQUELINE with probe detectionNeisseria gonorrhea DNA probe, direct Lab Routine Screen for STD (sexually transmitted disease) Ordered: 11/05/2024[facility] HealthcareComment on above:Ordered: 11/05/2024Reagin Ab [Presence] in Serum by RPRRPR Lab Routine Missed menses , unspecified gestational age Ordered: 09/14/2024[facility] HealthcareComment on above:Ordered: 09/14/2024Rubella antibody, IgGRubella antibody, IgG Lab Routine Missed menses , unspecified gestational age Ordered: 09/14/2024[facility] HealthcareComment on above:Ordered: 09/14/2024 SURESWAB(R) ADVANCED VAGINITIS PLUS, TMASURESWAB(R) ADVANCED VAGINITIS PLUS, TMA Pathology and Cytology Routine Screen for STD (sexually transmitted disease) Yeast infection Ordered: 11/05/2024[facility] Work Phone: comment on above:Ordered: 11/05/2024 Immunizations Immunization DateImmunizationNotesCare VbucfwsoZwwwacey45-03-6919isiqkirov virus vaccine, live, attenuated, for intranasal useKai [facility] Payers DatePayer CategoryPayerPolicy [id number] 31-97-1033Nqwq-[id number]-[id number]-[id number] 2.16.840.1.834230.3.57[id number] 2.16840.1.590112.3.57[id number] 2.16840.1.946214.3.57[id number] 2.16840.1.680447.3.57[id number] 2.840.1.399536.3.57[id number] 2.16840.1.456531.3.57[id number] 2.16840.1.762177.3.57[id number] 2.16840.1.577338.3.57[id number] 2.16840.1.681024.3.57[id number] 2.16840.1.884795.3.57[id number] 2.16840.1.218107.3.57[id number] 2.16840.1.414480.3.57[id number] 2.16840.1.932431.3.57[id number] 2.16.840.1.337082.3.57[id number] 2.16.840.1.729165.3.57[id number] 2.16.840.1.705756.3.57[id number] 2.16.840.1.692403.3.57[id number] 2.16.840.1.143658.3.57[id number] 2.16.840.1.847928.3.579.2.98[id number] [facility] [id number] [id number]-[id number] 2.16.840.1.359050.3.579.2.531 Social History DateTypeDetailFacilityStart: 01-01-2017 End: 16-38-8060Gfqezrc smoking status NHISNever smoked tobacco (finding) [facility]art: 39-18-4253Ekq Assigned At [facility] HospitalTobaccChillicothe Hospital Comment on above:DeniesTobacco smoking statusNo Smoking Status [facility] Start: 08-18-2020 End: 81-29-7347Pgw Assigned At [facility]art: 58-01-6703Gmwxlzo use and exposureSmokeless tobacco non-userBon [facility] HospitalStart: 01-57-9517Hjbrddail beverage intakeLifetime non-drinker (finding) [facility] HospitalStart: 08-18-2020 End: 89-89-0201Vbykukv of Social functionTucson Heart Hospital [employer] [facility] HospitalHow often to you have a drink containing alcohol?NeverBalaji [facility] Centerlester BeatSwitchrajinder [facility] HospitalStart: 01-00-6648Ihz many standard drinks containing alcohol do you have on a typical day?Not askedSentara Williamsburg Regional Medical CenterBootleg Market(I/We) worried whether (my/our) food would run out before (I/we) got money to buy more.Never trueSentara Williamsburg Regional Medical CenterBizeeBee [facility] Start: 68-67-6150Gyy assigned at birthNot on fileCentra Virginia Baptist HospitalTapTrack [facility] HospitalTobacco smoking status NHISTobacco smoking consumption unknownNOWA HealthcareStart: 62-39-9639Pxmeuo identityIdentifies as female gender (finding)[facility] Start: 51-88-9078Zcsgzw orientationHeterosexual (finding)[facility] HealthcareStart: 47-99-0659NtnqlsjpxSCJC Healthcare Functional Status EjmuNtppuvxuxvBfzsgvAkmawrqb52-04-3918Qutwqnyhud StatusTogus VA Medical Center12-02-2024Functional StatusSelect [facility] Clinical Notes 03-12-2024 to 02-20-2025 Note Date & AvaiTcdgEwsqmixi85-00-6563 History of Present illness Narrative* Анна Hare LPN - 02/20/2025 10:50 AM EST Reason for Appointment: Patient ID: Jyoti Torres is a 24 y.o. female who presents for Routine Visit Patient presents today for Return OB appointment. MEDICATIONS No current outpatient medications ALLERGIES No Known Allergies PROBLEMS Active Ambulatory Problems Diagnosis Date Noted Missed menses 08/30/2024 Amenorrhea 09/14/2024 Encounter for supervision of normal first in first trimester ([facility]) 09/14/2024 Vasovagal episode 10/16/2024 Resolved Ambulatory Problems Diagnosis Date Noted No Resolved Ambulatory Problems Past Medical History: Diagnosis Date Positive urine test ([facility]) HISTORY PAST MEDICAL HISTORY SOCIAL HISTORY Past Medical History: Diagnosis Date Positive urine test ([facility]) Social History Tobacco Use Smoking status: Not [...] nursing note reviewed. Exam conducted with a accounting file clerk present. Vitals: Estimated body mass index is 33.27 kg/m as calculated from the following: Height as of 08/24/23: 5' 4 . Weight as of this encounter: 193 lb 12.8 oz. BP: 112/68 Patient's last menstrual period was 06/27/2024. Assessment/Plan ICD-10-CM 1. 29 weeks gestation of ([facility]) Z3A.29 POCT urinalysis dipstick manually resulted US OB follow up transabdominal approach 2. Third trimester ([facility]) Z34.93 POCT urinalysis dipstick manually resulted 3. Pruritus L29.9 4. Vasovagal episode R55 5. size inconsistent with dates ([facility]) O26.849 US OB follow up transabdominal approach [...] of: Morro Doty DO documented in this encounterPhelps HealthCleavbrwic74-99-5997 History of Present illness Narrative* KEESHA Resendiz [...] supervision of normal first in first trimester ([facility]) 09/14/2024 Vasovagal episode 10/16/2024 Resolved Ambulatory Problems Diagnosis Date Noted No Resolved Ambulatory Problems Past Medical History: Diagnosis Date Positive urine test ([facility]) HISTORY PAST MEDICAL HISTORY SOCIAL HISTORY Past Medical History: Diagnosis Date Positive urine test ([facility]) Social History Tobacco Use Smoking status: Not [...] ASSESSMENT & PLAN ICD-10-CM 1. Second trimester ([facility]) Z34.92 2. 27 weeks gestation of ([facility]) Z3A.27 POCT urinalysis dipstick manually resulted Return [...] behalf of: KEESHA Resendiz documented in this encounterPhelps HealthKnxqilhuit35-99-7643 History of Present illness Narrative* KEESHA Nj [...] for any new/changing lesions documented in this encounterPhelps HealthNjobqirepd20-38-5951 History of Present illness Narrative* Walter Sainz, PJ - 01/15/2025 10:30 AM EDT Reason for Appointment: Patient ID: Jyoti Torres is a 24 y.o. female who presents for Routine Visit Patient presents today for Return OB appointment. MEDICATIONS No current outpatient medications ALLERGIES No Known Allergies PROBLEMS Active Ambulatory Problems Diagnosis Date Noted Missed menses 08/30/2024 Amenorrhea 09/14/2024 Encounter for supervision of normal first in first trimester ([facility]) 09/14/2024 Vasovagal episode 10/16/2024 Resolved Ambulatory Problems Diagnosis Date Noted No Resolved Ambulatory Problems Past Medical History: Diagnosis Date Positive urine test ([facility]) HISTORY PAST MEDICAL HISTORY SOCIAL HISTORY Past Medical History: Diagnosis Date Positive urine test ([facility]) Social History Tobacco Use Smoking status: Not [...] nursing note reviewed. Exam conducted with a accounting file clerk present. Vitals: Estimated body mass index is 32.17 kg/m as calculated from the following: Height as of 08/24/23: 5' 4 . Weight as of this encounter: 187 lb 6.4 oz. BP: 124/80 Patient's last menstrual period was 06/27/2024. ASSESSMENT & PLAN ICD-10-CM 1. 24 weeks gestation of ([facility]) Z3A.24 POCT urinalysis dipstick manually resulted 2. Second trimester ([facility]) Z34.92 3. Diabetes mellitus screening [...] of: Walter Sainz NP documented in this encounterPhelps HealthPhapcmsjhr20-94-9599 History of Present illness Narrative* Mary Fournier [...] supervision of normal first in first trimester ([facility]) 09/14/2024 Vasovagal episode 10/16/2024 Resolved Ambulatory Problems Diagnosis Date Noted No Resolved Ambulatory Problems Past Medical History: Diagnosis Date Positive urine test ([facility]) HISTORY PAST MEDICAL HISTORY SOCIAL HISTORY Past Medical History: Diagnosis Date Positive urine test ([facility]) Social History Tobacco Use Smoking status: Not [...] nursing note reviewed. Exam conducted with a accounting file clerk present. Vitals: Estimated body mass index is 31.07 kg/m as calculated from the following: Height as of 08/24/23: 5' 4 . Weight as of this encounter: 181 lb. BP: 118/74 Patient's last menstrual period was 06/27/2024. ASSESSMENT & PLAN ICD-10-CM 1. Second trimester ([facility]) Z34.92 POCT urinalysis dipstick manually resulted 2. 20 weeks gestation of ([facility]) Z3A.20 3. Vasovagal episode R55 Patient presents [...] of: Walter Sainz NP documented in this encounterPhelps HealthXrmplocpsu02-25-8643 History of Present illness Narrative* KEESHA Resendiz [...] supervision of normal first in first trimester ([facility]) 09/14/2024 Vasovagal episode 10/16/2024 Resolved Ambulatory Problems Diagnosis Date Noted No Resolved Ambulatory Problems Past Medical History: Diagnosis Date Positive urine test ([facility]) HISTORY PAST MEDICAL HISTORY SOCIAL HISTORY Past Medical History: Diagnosis Date Positive urine test ([facility]) Social History Tobacco Use Smoking status: Not [...] ASSESSMENT & PLAN ICD-10-CM 1. Second trimester ([facility]) Z34.92 POCT urinalysis dipstick manually resulted 2. 15 weeks gestation of ([facility]) Z3A.15 3. Vasovagal episode R55 4. Need for maternal serum alpha-protein (MSAFP) screening ([facility]) Z36.1 Alpha fetoprotein, maternal Alpha fetoprotein, maternal [...] MSAFP/Anatomy US order to have obtained at [facility]. Orders Placed This Encounter Procedures Alpha fetoprotein, maternal POCT urinalysis dipstick manually resulted Follow Up: Patient is to return to office in 4 week for routine OB appointment. Documented by Olena Gould MA on behalf of: KEESHA Resendiz documented in this encounterPhelps HealthMsbmwlbywo38-84-2817 History of Present illness Narrative* KEESHA Resendiz [...] supervision of normal first in first trimester ([facility]) 09/14/2024 Vasovagal episode 10/16/2024 Resolved Ambulatory Problems [...] 06/27/2024. ASSESSMENT & PLAN (Z34.92) Second trimester ([facility]) Plan: POCT urinalysis dipstick manually resulted (Z3A.14) 14 weeks gestation of ([facility]) (R55) Vasovagal symptom (Z11.3) Screen for STD [...] behalf of: KEESHA Resendiz documented in this encounterPhelps HealthOrvrbfpari74-94-5662 History of Present illness Narrative* Анна Hare [...] supervision of normal first in first trimester ([facility]) 09/14/2024 Vasovagal episode 10/16/2024 Resolved Ambulatory Problems [...] nursing note reviewed. Exam conducted with a accounting file clerk present. Vitals: Estimated body mass index is 29.35 kg/m as calculated from the following: Height as of 08/24/23: 5' 4 . Weight as of this encounter: 171 lb. BP: 112/64 Patient's last menstrual period was 06/27/2024. ASSESSMENT & PLAN ICD-10-CM 1. First trimester ([facility]) Z34.91 POCT urinalysis dipstick manually resulted 2. 11 weeks gestation of ([facility]) Z3A.11 3. Vasovagal episode R55 New OB: [...] or undercooked meat, and stay away from [facility]. Patient has been consulted regarding any further do's and don'tsof . Patient voiced understanding and all questions and concerns were answered. Orders Placed This Encounter Procedures POCT urinalysis dipstick manually resulted Follow Up: Patient is to return in 4 weeks for routine OB appointment. Documented by Анна Hare LPN on behalf of: Morro Doty DO documented in this encounterPhelps [id number] History of Present illness Narrative* Olena Gould [...] weeks gestation of Nurse Note: Patient desires [place]. Advised pt to make sure to wait until 9 weeks and take labs along w/[place] to have drawn. The lab will not [...] or undercooked meat, and stay away from [facility]. Patient has also been advised to [...] by: Olena Gould MA documented in this encounterPhelps [id number] History of Present illness Narrative* KEESHA Resendiz - 08/28/2024 10:00 AM EDT Reason for Appointment: Patient ID: Jyoti Torres is a 23 y.o. female who presents for [facility] Women Visit Patient presents today for Return [...] nursing note reviewed. Exam conducted with a accounting file clerk present. Vitals: Estimated body mass index is [...] behalf of: KEESHA Resendiz documented in this encounterPhelps [id number] Evaluation + Plan note Extracted from:Title:Discharge NoteAuthor:Luis SNELL, Moses GalvezDate:03/13/24 Discharge To, Anticipated II - Home with responsible caregiver Prescriptions No active prescription medications Home No active home medications With When Contact Information Mark RIZVI, IRIS Alexander Within 2 to 4 weeks Additional Instructions: Call for followup appointment Remigio RIZVI, KYLAH Esteves Within 2 to 4 [facility] [place] [address]- Additional Instructions: Postural Orthostatic Tachycardia Syndrome Orthostatic Hypotension Near-Syncope, Pywi-zn-Sfal Extracted from:Title:Consult Note- NeurologyAuthor:Hayley Nicholas RN ADate: [...] Ordered: Initial Hospital Care/Day Moderate 55 Minutes [id number] 2. Postural orthostatic tachycardia syndrome [POTS] (G90.A: [...] of control 2 years ago. Extracted from:Title:ED NoteAuthor:Evelyne Lovell DOxanderdeanna ADate:03/12/24 Abdominal pain, acute (R10.9 : Unspecified [...] Cortisol 03/13/24 [facility] 12-03-2024 Hospital Discharge instructions Patient Education 03/13/2024 [...] Follow these instructions at home: Medicines Take hdhd-xvo-qmiadpt and prescription medicines only as told by your health care provider. Let your health care provider know about all prescription or sivb-rpx-wyodjkm medicines you take. These include herbs, vitamins, [...] provider. Document Revised: 10/08/2021 Document Reviewed: 10/08/2021 Hublished Patient Education 2023 [employer]. 03/13/2024 11:57:29 Orthostatic Hypotension Orthostatic Hypotension Blood [...] Follow these instructions at home: Medicines Take vdad-hhq-akjjlmj and prescription medicines only as told by [...] provider. Document Revised: 06/11/2021 Document Reviewed: 06/11/2021 Hublished Patient Education 2023 [employer]. 03/13/2024 11:56:07 Near-Syncope, Ijlq-gs-Etrg Near-Syncope Near-syncope is when you suddenly feel [...] Follow these instructions at home: Medicines Take mnzc-phx-dbbhoqf and prescription medicines only as told by [...] provider. Document Revised: 08/06/2021 Document Reviewed: 08/06/2021 Hublished Patient Education 2023 [employer]. Follow Up Care 03/12/2024 05:45:24 With:Jenna BA Address: [address] [facility] [place] [phone] Business (1) When:03/15/2024 09:45:00 With:Anthony Flood MD, NEU Address: [address] [place] [address]- When:03/28/2024 13:40:00 Comments:Will being Hue Bentley NP at this appointment. With:Benjamin Flores MD, CAR Address: When:2 to 4 weeks Comments:Call for followup appointment [facility] 12-03-2024 NoteDischarge Summary Admission and Discharge Information Admitting Physician - Kai Mcrae MD Consulting Physician - Anthony Flood MD, MD, Jorge [facility] Cardio, XXXX Admitting Diagnoses: Discharge Diagnoses 1. [...] EST, syncope, Consult and Co-manage Consult to [employer] - Ordered -- 03/12/24 13:52:06 EST Physical [...] KYLAH Esteves Within 2 to 4 weeks [facility] [address]- Additional Instructions: Patient Education Postural Orthostatic Tac (more content not included)...[facility] CenterComment on above:Result Comment: Electronically Signed By: Moses Smith DO\.br\Date and Time Signed: 03/13/24 12:08 [id number] Note Echocardiology Procedure Exam Date/Time Accession # Ordering Echo Transthoracic 03/13/2024 10:27 EST [id number] Moses Smith DO Complete CPT code 57950 [id number] Reason for Exam (Echo Transthoracic Complete) Syncope Report [facility] [address] [place] [address] Adult Echocardiogram Report Name: JYOTI TORRES Study Date: 03/13/2024 09:56 AM BP: 96/61 mmHg Patient Location: [address] [place] [address] Bed(s) [facility] HR: 57 : 2000 Gender: Female Height: [...] Benjamin Flores MD Transcribed by: ROSE Technologist: [facility]12-03-2024 Note Consultation Note Chief Complaint abdomenal [...] sensation in all 4 extremities Cerebellar exam: Fvcewd-tp-jawz reveals no ataxia. Gait is normal Assessment/Plan [...] None. Medications Inpatient ac (more content not included)...[facility] CenterComment on above: Result Comment: Electronically Signed By: Hayley Nicholas RN\.br\Date and Time Signed: 03/13/24 07:03 EST\.br\Electronically Co-Signed By: Anthony Flood MD\.br\Date and Time Co-Signed: 03/13/2409:18 EST\.br\Electronically Co- Signed By: Hayley Nicholas RN [id number] NoteHistory and Physical Chief Complaint abd pain [...] be full code. Review of Systems Scoring Reid Fall Risk Score: 20 (03/12/24) Physical Exam [...] Lymph Auto: 10.6 % Low (03/12/24 06:09:00) [place] Auto: 5.7 % (03/12/24 06:09:00) Eos Auto: 0.6 % (03/12/24 06:09:00) Basophil Auto: 0.2 % (03/12/24 06:09:00) Neutro Absolute: 13.5 E9/L High (03/12/24 06:09:00) Lymph Absolute: 1.7 E9/L (03/12/24 06:09:00) [place] Absolute: 0.9 E9/L (03/12/24 06:09:00) Eos Absolute: [...] WBC: 0-5 (03/12/24 06:09:00) (more content not included)...[facility] CenterComment on above:Result Comment: Electronically Signed By: Moses Smith DObr\Date and Time Signed: 03/12/24 12:09 ESTEvaluation noteNo assessment information available [facility] Work Phone: Evaluation note* Diagnosis Palpitations Pre-syncope Syncope and collapse [facility] Diagnosis Well woman exam with routine gynecological exam Routine gynecological examination Missed menses [facility]* Diagnosis Amenorrhea Absence of menstruation Missed menses , unspecified gestational age Encounter for supervision of normal first in first trimester 6 weeks gestation of documented in this encounter [facility]* Diagnosis First trimester ([facility]) state, incidental 11 weeks gestation of ([facility]) Vasovagal episode Syncope and collapse [facility]* Diagnosis Second trimester ([facility]) state, incidental 14 weeks gestation of ([facility]) Vasovagal symptom Screen for STD (sexually transmitted disease) Screening examination for venereal disease Yeast infection [facility]* Diagnosis Second trimester ([facility]) state, incidental 15 weeks gestation of ([facility]) Vasovagal episode Syncope and collapse Need for maternal serum alpha-protein (MSAFP) screening ([facility]) Screening, , for anatomic survey ([facility]) Encounter for anatomic survey [facility]* Diagnosis Second trimester ([facility]) state, incidental 20 weeks gestation of ([facility]) Vasovagal episode Syncope and collapse documented [facility]* Diagnosis 24 weeks gestation of ([facility]) Second trimester ([facility] state, incidental Diabetes mellitus screening Screening for diabetes mellitus Pruritus Unspecified pruritic disorder [facility]* Diagnosis Melanocytic nevus of left upper extremity- Primary Melanocytic nevus, unspecified location documented [facility]* Diagnosis Second trimester ([facility]) state, incidental 27 weeks gestation of ([facility]) documented [facility]* Diagnosis 29 weeks gestation of ([facility]) Third trimester ([facility]) state, incidental Pruritus Unspecified pruritic disorder Vasovagal episode Syncope and collapse size inconsistent with dates ([facility]) documented [facility] this [facility] Narrative No data available for this section [facility] Progress note No data available for this section [facility] Chief Complaint and Reason for Visit Chief [...] Extended cardiac holter monitor (3 days-14 day) MT EXTERNAL ECG REC>48HR<7D REVIEW & INTERPRETATION MT EXTERNAL ECG REC>48HR<7D RECORDING MT EXTERNAL ECG REC>7D<15D RECORDING MT EXTERNAL ECG REC>7D<15D REVIEW & INTERPRETATION Jenna Ba DO [address] [place] [address] [address] Referral IDStatusReasonStart DateExpiration DateVisits RequestedVisits [id number]/24/20255/ Additional Source Comments Care Teams (unrecognized sec tion and content) Team Status: Inactive Member Role Status Dates Outreach Community Attending Provider Active PHYSICIAN NO FAMILYPrimary Care ProviderActive Team Status: Active Member Role Status Dates PHYSICIAN NO FAMILY Primary Care Provider Active Team MemberRelationshipSpecialtyStart DateEnd Date Jenna Ba DO [address] [place] [address] PCP - GeneralFamily Medicine09/29/23Team MemberRelationshipSpecialtyStart DateEnd Date Jenna Ba MD [address] [facility] [place] [address] PCP - GeneralGeneral Jtjlijcz62/10/24Team MemberRelationshipSpecialtyStart Date End Date Jenna Ba MD [address] [place] [address] PCP - GeneralGeneral Dsmurxmz61/10/24Team MemberRelationshipSpecialtyStart Date End Date Jenna Ba MD [address] [place] [place] [address] PCP - GeneralGeneral Jtzvwatm83/10/24Team MemberRelationshipSpecialtyStart Date End Date Jenna Ba MD [address] [place] [place] [address] PCP - GeneralGeneral Pstdfyuc46/10/24Team MemberRelationshipSpecialtyStart Date End Date Jenna Ba MD [address] [place] [place] [address] PCP - GeneralGeneral Uqcwikgk97/10/24am MemberRelationshipSpecialtyStart Date End Date Jenna Ba MD [address] [place] [place] [address] PCP - GeneralGeneral Gywupjfl63/10/24am MemberRelationshipSpecialtyStart Date End Date Jenna Ba MD [address] [place] [place] [address] PCP - GeneralGeneral Ritajwlj96/10/24Team MemberRelationshipSpecialtyStart Date End Date Jenna Ba MD [address] [place] [place] [address] PCP - GeneralGeneral Gmtmtpxg53/10/24Team MemberRelationshipSpecialtyStart Date End Date Jenna Ba MD [address] [place] [address] PCP - GeneralGeneral Gljqlcfr99/10/24Te MemberRelationshipSpecialtyStart Date End Date Jenna Ba MD [address] [place] [address] PCP - GeneralGeneral Rzqorjwu92/10/24Te MemberRelationshipSpecialtyStart Date End Date Jenna Ba MD [address] [place] [address] PCP - GeneralGeneral Bahvqdsq39/10/24Te MemberRelationshipSpecialtyStart Date End Date Jenna Ba MD [address] [place] [address] PCP - GeneralGeneral Lmfxojok71/10/24Te MemberRelationshipSpecialtyStart Date End Date Jenna Ba MD [address] [place] [address] PCP - GeneralSelect Medical [facility]woodral Plcmelbi76/10/24 Goals (unrecognized section and content) Goals may be documented in a n alternate section No data available for this section INFORMATION SOURCE (unrecogn ized section and content) DATE CREATED AUTHOR 03/14/2022 [facility] DATE CREATED AUTHOR AUTHOR'S ORGANIZ ATION 07/23/2022 [facility] DATE CREATED AUTHOR AUTHOR'S ORGANIZ ATION 03/12/2024 [facility] DATE CREATED AUTHOR AUTHOR'S ORGANIZ ATION 03/14/2024 [facility] DATE CREATED AUTHOR AUTHOR'S ORGANIZ ATION 03/16/2024 [facility] DATE CREATED AUTHOR AUTHOR'S ORGANIZ ATION 06/08/2024 [facility] DATE CREATED AUTHOR AUTHOR'S ORGANIZ ATION 02/21/2025 [facility] EPIC Reason for Visit (unrecogniz ed section and content) SpecialtyDiagnoses / ProceduresReferred By ContactReferred To ContactCardiology Diagnoses Palpitations Pre-syncope Procedures Extended cardiac holter monitor (3 days-14 day) MT EXTERNAL ECG REC>48HR<7D REVIEW & INTERPRETATION MT EXTERNAL ECG REC>48HR<7D RECORDING MT EXTERNAL ECG REC>7D<15D RECORDING MT EXTERNAL ECG REC>7D<15D REVIEW & INTERPRETATION Jenna Ba DO [address] [place] [address] [facility] [address] [place] [address] Referral IDStatusReasonStart DateExpiration DateVisits RequestedVisits [id number]/24/20255/25/817043WzdivxMtpyurbfPaiu Women VisitReason CommentsAmenorrheaReasonCommentsRoutine VisitReasonCommentsSkin Check FOR RECORDS [...] BE BASED ON THE PRIMARY CLINICAL RECORDS. [employer] [facility]. provides no warranty or guarantee of the accuracy or completeness of information in this document.
== END 2025-02-16 15:06 | disposition home or self-care (01) ==
LOC: FBC 15:23 → FBCO 03-06 08:44
PROVIDERS: PCP Family Medicine; Visit Provider Obstetrics & Gynecology
DX: O36.8130 Decreased fetal movements, third trimester, not applicable or unspecified (principal)
CPT/HCPCS: 59025

== ENCOUNTER 2025-04-08 20:43 | Outpatient (REF) | payer OTHER, SELFPAY ==
--- OUTSIDE RECORDS SUMMARY | 2025-04-08 08:30 | XMS_ITS | Encounter Summary ---
Author Organization [facility] Address [address] [place] [address] Care Team Providers Care Tissue Technician Name Role Phone Emery Flood MD Primary Care Provider [phone] Encounter Details DateTypeDepartmentCare Team (Latest Contact Info)Mhqwbezakud94/29/2025 8:30 AM ESTAncillary Procedure [facility]le [facility] [place] [address] Excessive growth affecting management of , antepartum, single or unspecified fetus ([facility]) Social History Tobacco UseTypesPacks/DayYears UsedDateSmoking Tobacco: Never Assessed Estimated Date of UyishngoIkjwxxczJok53/24/2026ased on UltrasoundSex and Gender InformationValueDate RecordedSex Assigned at SlbivZrvaaw88/14/2024 1:04 PM EDT Legal WvwRfxxsm63/15/2023 11:49 PM EDTGender XwwuqhjwDegdwv05/14/2024 1:04 PM EDTSexual IvbiocduuxgDvdsgdax62/14/2024 1:04 PM EDTdocumented as of this encounter Plan of Treatment DateTypeDepartmentCare Team (Latest Contact Info)Oxhhiajaxnc70/05/2026 10:30 [place] [address] Morro Doty DO [facility] [place], [place] [id number] NameTypePriorityAssociated DiagnosesDate/TimeUS OB follow up transabdominal approachImagingRoutine Excessive growth affecting management of , antepartum, single or unspecified fetus ([facility]) 04/08/2025 9:34 AM ESTdocumented as of this encounter Visit Diagnoses Diagnosis Excessive growth affecting management of , antepartum, single or unspecified fetus ([facility]) documented in this encounter Care Teams Team MemberRelationshipSpecialtyStart DateEnd Date Emery Flood MD [address] [place] [address] PCP - GeneralGeneral Yajawmur51/10/24documented as of this encounter
--- OUTSIDE RECORDS SUMMARY | 2025-04-08 08:50 | XMS_ITS | Encounter Summary ---
Author Organization [facility] Address [address] [place] [address] Care Team Providers Care Cashier Supervisor Name Role Phone Emery Flood MD Primary Care Provider Reason for Visit * ReasonCommentsRoutine Visit Encounter Details DateTypeDepartmentCare Team (Latest Contact Info)Nbnnvjguiah86/29/2025 8:50 AM ESTRoutine [facility] [address] [place] [phone] Sunshine Mclean PA [address] [place], [id number] 36 weeks gestation of ([facility]); Third trimester ([facility]); Excessive growth affecting management of , antepartum, single or unspecified fetus ([facility]); Pruritus; Vasovagal episode Social History Tobacco UseTypesPacks/DayYears UsedDateSmoking Tobacco: Never Assessed Estimated Date of RqbmjaxmJqevidkaZle32/24/2026ased on UltrasoundSex and Gender InformationValueDate RecordedSex Assigned at AavtxTaaxdp56/14/2024 1:04 PM EDT Legal OwkXuitnw46/15/2023 11:49 PM EDTGender DtfhbcjsGjfnah92/14/2024 1:04 PM EDTSexual YbjcpvrzqjqQkqqslat14/14/2024 1:04 PM EDTdocumented as of this encounter Last Filed Vital Signs Vital SignReadingTime TakenCommentsBlood Xiokkcre865/801 9:45 AM EST Pulse--Temperature--Respiratory Rate--Oxygen Saturation--Inhaled Oxygen Concentration--Ntpimr61.4 kg (205 lb 12.8 oz)04/08/2025 9:45 AM ESTHeight--Body Mass Index35.33008/24/2023 9:07 AM EDTdocumented in this encounter Progress Notes * KEESHA Resendiz - 04/08/2025 8:50 AM EST Reason for Appointment: Patient ID: Jyoti Torres is a 24 y.o. female who presents for Routine Visit Patient presents today for Return OB appointment. MEDICATIONS No current outpatient medications ALLERGIES No Known Allergies PROBLEMS Active Ambulatory Problems Diagnosis Date Noted Missed menses 08/30/2024 Amenorrhea 09/14/2024 Encounter for supervision of normal first in first trimester ([facility]) 09/14/2024 Vasovagal episode 10/16/2024 Resolved Ambulatory Problems Diagnosis Date Noted No Resolved Ambulatory Problems Past Medical History: Diagnosis Date Positive urine test ([facility]) HISTORY PAST MEDICAL HISTORY SOCIAL HISTORY Past Medical History: Diagnosis Date Positive urine test ([facility]) Social History Tobacco Use Smoking status: [...] nursing note reviewed. Exam conducted with a staple processing machine operator present. Vitals: Estimated body mass index is 35.33 kg/m?? as calculated from the following: Height as of 08/24/23: 5' 4 . Weight as of this encounter: 205 lb 12.8 oz. BP: 128/80 Patient's last menstrual period was 06/27/2024. Assessment/Plan ICD-10-CM 1. 36 weeks gestation of ([facility]) Z3A.36 POCT urinalysis dipstick manually resulted 2. Third trimester ([facility]) Z34.93 POCT urinalysis dipstick manually resulted CULTURE, GROUP B STREP WITH SUSCEPTIBLITY CULTURE, GROUP B STREP WITH SUSCEPTIBLITY 3. Excessive growth affecting management of , antepartum, single or unspecified fetus ([facility]) O36.60X0 4. Pruritus L29.9 5. Vasovagal episode R55 Assessment/Plan Patient is doing well but has complaints of being tired and having maternal discomfort due to . Patient verbalized frequent movement and was instructed to perform kick counts three times per day. labor precautions were given, LARC consent was signed/declined, and GBS was obtained. Cervical check was performed and patient is 0cm dilated. NST/BPP ordered at this time. Orders Placed This Encounter Procedures CULTURE, GROUP B STREP WITH SUSCEPTIBLITY POCT urinalysis dipstick manually resulted Follow Up: Patient is to return to office in 1 week for routine OB appointment Documented by Maria D Willoughby LPN on behalf of: KEESHA Resendiz documented in this encounter Plan of Treatment DateTypeDepartmentCare Team (Latest Contact Info)Dqicntxotzr80/05/2026 10:30 AM ESTRoutine [facility] [address] [place] [phone] Morro Doty, [address] [place] [address] NameTypePriorityAssociated DiagnosesOrder ScheduleCULTURE, GROUP B STREP WITH SUSCEPTIBLITYLabRoutine Third trimester ([facility]) Expected: 04/08/2025, Expires: 04/08/2026US biophysical profile w non stress testImagingRoutine 36 weeks gestation of ([facility]) Third trimester ([facility]) Excessive growth affecting management of , antepartum, single or unspecified fetus ([facility]) Expected: 04/08/2025 (Approximate), Expires: 10/07/2025documented as of this encounter Procedures Procedure NamePriorityDate/TimeAssociated DiagnosisCommentsPOCT URINALYSIS GFGLZVIQFeqhzeg10/29/2025 9:42 AM EST 36 weeks gestation of ([facility]) Third trimester ([facility]) documented in this encounter Results * (ABNORMAL) POCT urinalysis dipstick manually resulted (04/08/2025 9:42 AM EST) ComponentValueRef RangeTest MethodAnalysis TimePerformed AtPathologist SignatureColor, UAAmberClarity, UAClearGlucose, UANegativeNegative - 2000(110) ++++ mg/dLBilirubin, UANegativeNegative - 4(70) +++ mg/dLKetones, UAPositive Negative - 160(16) ++++ mg/dLSpec Grav, UA1.0151 - 1.03Blood, UAPositive Negative - 50 Edin/mcLpH, UA6.05 - 9Protein, UAPositiveNegative - 2000(20) ++++ mg/dLUrobilinogen, UA1.00.2 - 12 mg/dLLeukocytes, UA3+Negative - 500+++ Tiffany/mcLNitrite, UANegativeNegative - PositiveSpecimen (Source)Anatomical Location / LateralityCollection Method / VolumeCollection TimeReceived Time Urine04/08/2025 9:42 AM EST Narrative Authorizing ProviderResult TypeResult StatusBenjamin Stickney [facility] OF CARE TEST ENTER/EDIT ORDERABLESFinal Result documented in this encounter Visit Diagnoses Diagnosis 36 weeks gestation of ([facility]) Third trimester ([facility]) state, incidental Excessive growth affecting management of , antepartum, single or unspecified fetus ([facility]) Pruritus Unspecified pruritic disorder Vasovagal episode Syncope and collapse documented in this encounter Care Teams Team MemberRelationshipSpecialtyStart DateEnd Date Emery Flood MD [address] [place] [address] PCP - GeneralGeneral Qydpsqfk74/10/24documented as of this encounter
--- OUTSIDE RECORDS SUMMARY | 2025-04-08 20:48 | XMS_ITS | CCD ---
Author Organization [facility] CliniSyla Care Team Providers Care Lookback Coordinator Name Role Phone Community, Outreach Attending Provider [...] Admitting Unavaila ble Anthony Flood Consulting Unavailable [place] VincentAnthony Consulting Unavailable [place] VincentAnthony tristan Consulting Unavailable Anthony Flood Consulting Unavailable Anthony Flood Consulting Unavailable Anthony Flood Consulting Unavailable Anthony Flood Consulting Unavailable [place] Vincent[place] Consulting Unavailable [place] Vincent[place] Consulting Unavailable [facility]X Consulting Unavailable Jenna BA Primary Care Physician [phone] Irasema Franco Unavailable Unavailable Kai Mcrae Admitting Unavailable BetaarielleorBenjamin Consulting Unavailable Moses Smith Attending Unavailable Benjamin Flores Consulting Unavailable Benjamin Flores Consulting Unavailable Anthony Flood Consulting Unavailable MD Anthony Flood Unavailable [place] Vincent[place] Consulting Unavailable [place] Vincent[place] Consulting Unavailable [place] Vincent[place] Consulting Unavailable [place] VincentAnthony Consulting Unavailable [place], Anthony Consulting Unavailable [place], Anthony Consulting Unavailable [place], Anthony Consulting Unavailable [facility] [place], XXXX Consulting Unavailable MD Kai Mcrae [...] Translations: [Elevated white blood cell count, unspecified]Onset: 69-36-0362DscziiySdwyijyoxqglq and screening for infectious disease (3 sources)Encounter for screening for human papillomavirus (HPV); Translations: [Patient encounter status]Onset: 489159-63-9725LzzrtsiiLbmtjggsi disorders (20 sources)Irregular menstruation, unspecified; Translations: [Missed period] Onset: 868986-22-7343HhulvprEpluexs (2 sources)Mycosis; Translations: [Candidiasis, unspecified]60-93-8283Lqcpafrp Nonspecific chest pain (1 source)Chest wall pain; Translations: [Other chest pain]04-88-9626Bhwwjeev Other and unspecified benign neoplasm (1 source)Melanocytic nevus of left upper limb; Translations: [Melanocytic nevi of left upper limb, includingshoulder]38-71-1450KjhwdlocYquyw and unspecified benign neoplasm (1 source)Melanocytic nevus; Translations: [Melanocytic nevi, unspecified] 47-73-1437MykybwpwDyckh circulatory disease (1 source)Low blood pressure; Translations: [Hypotension, unspecified]Onset: 11-87-6266VoxizhzdXlslt circulatory disease (1 source)Postural orthostatic tachycardia syndrome ; Translations: [Postural orthostatic tachycardia syndrome [POTS]]Onset: 42-15-7668CeqdntiaFlwdc circulatory disease (1 source)Orthostatic hypotension; Translations: [Orthostatic hypotension]Onset: 09-95-1093UqxvgajcOdqww complications of (2 sources) size does not accord with dates; Translations: [Uterine size- date discrepancy, unspecified trimester]83-16-9487ZwywjtboFvrys endocrine disorders (4 sources)Polycystic ovarian syndrome; Translations: [POLYCYSTIC OVARIAN SYNDROME]Onset: 74-02-7037LvntyxaJibbm inflammatory condition of skin (4 sources)Pruritus, unspecified; Translations: [Unspecified pruritic disorder] 73-42-5241IeumextiZtpll nutritional; endocrine; and metabolic disorders (1 source)Body mass index 30+ - -90-6602LniqzgkYlbwg nutritional; endocrine; and metabolic disorders (1 source)Simple zioicin57-41-2851LpspmbhPqvqc nutritional; endocrine; and metabolic disorders (1 source)Obesity; Translations: [Obesity, unspecified]Onset: 08-18-2020 04-16-8592UetqczuKsjni and delivery including normal (20 sources); Translations: [Encounter for supervision of normal , unspecified, unspecified trimester]Onset: EpisodicOther screening for suspected conditions (not mental disorders or infectious disease) (10 sources)Encounter for screening for malignant neoplasm of cervix; Translations: [Alpha-fetoprotein blood test status]Onset: 00-04-8686Slofzulh Residual codes; unclassified (1 source)Gestation period, 6 weeks; Translations: [Less than 8 weeks gestation of ]29-81-1925ZajnwyqzMgyoeoqf codes; unclassified (2 sources)Gestation period, 11 weeks; Translations: [11 weeks gestation of ]59-38-3160JxrieaawXvbotkhu codes; unclassified (2 sources)Gestation period, 14 weeks; Translations: [14 weeks gestation of ]64-50-9143TacufxqtPldlzvqt codes; unclassified (2 sources)Gestation period, 15 weeks; Translations: [15 weeks gestation of ]62-51-5416BidbzoffSdpeojre codes; unclassified (2 sources)Gestation period, 20 weeks; Translations: [20 weeks gestation of ]43-10-7973VgyrsenfLrjzzvnc codes; unclassified (2 sources)Gestation period, 24 weeks; Translations: [24 weeks gestation of ]50-23-6598SewbfpxlRmllgwqj codes; unclassified (2 sources)Gestation period, 27 weeks; Translations: [27 weeks gestation of ]82-67-1103IpmqmzysWqcfrhst codes; unclassified (2 sources)Gestation period, 29 weeks; Translations: [29 weeks gestation of ]00-02-0204GrgiwmuqHfdnnbg (20 sources)Syncope and collapse; Translations: [Syncope and collapse]Onset: 27-69-4398KlkhvumvUrucpjvvtjja (1 source)Patient encounter kjdboa42-02-5534 Past or Other Problems Problem ClassificationProblemDateDocumented DateEpisodic/ChronicAbdominal pain (3 sources)Abdominal pain; Translations: [Unspecified abdominal pain]Onset: 08-18-2020 Resolved: 98-11-2624IwcxfxyrIithx valve disorders (2 sources)Systolic murmur; Translations: [Cardiac murmur, unspecified]Onset: 318177-25-4831YkrfyeqnZncnc gastrointestinal disorders (2 sources)Burping; Translations: [Eructation]Onset: 08-18-2020 Resolved: 469491-24-2452Vgeblocl Results Test NameValueInterpretationReference RangeFacilityUrinalysis macro (dipstick) panel (U)on 62-24-3092Iufucvkbr, UANegativeNegative - 4(70) +++ mg/dLNOMS HealthcareBlood, UANegativeNegative - 50 Edin/mcLNOMS HealthcareClarity, UAClear NOMS HealthcareColor, UAAmberNOMS HealthcareGlucose, UANegativeNegative - 2000(110) ++++ mg/dLNOMS HealthcareInterpretation and review of laboratory resultsAbnormalNOMS HealthcareKetones, UANegativeNegative - 160(16) ++++ mg/dL NOMS HealthcareLeukocytes, UAPositiveNegative - 500+++ Tiffany/mcLNOOK Healthcare Nitrite, UANegativeNegative - PositiveNOMS HealthcarepH, UA6.05 - 9NOMS HealthcareProtein, UANegativeNegative - 2000(20) ++++ mg/dLNOMS HealthcareSpec Grav, UA1.0151 - 1.03NOMS HealthcareUrobilinogen, UA1.00.2 - 12 mg/dLNOMS HealthcareNOMS HealthcareUrinalysis macro (dipstick) panel (U)on 02-06-2025 Bilirubin, UANegativeNegative - 4(70) +++ mg/dLNOMS HealthcareBlood, UANegative Negative - 50 Edin/mcLNOMS HealthcareClarity, UAClearNOMS HealthcareColor, UA YellowNOMS HealthcareGlucose, UANegativeNegative - 2000(110) ++++ mg/dLNOOK HealthcareInterpretation and review of laboratory resultsAbnormalNOOK Healthcare Ketones, UANegativeNegative - 160(16) ++++ mg/dLNOMS HealthcareLeukocytes, UA3+ Negative - 500+++ Tiffany/[facility] HospitalNOOK HealthcareNitrite, UANegativeNegative - Positive NOMS HealthcarepH, UA7.55 - 9NOMS HealthcareProtein, UANegativeNegative - 2000(20) ++++ mg/dLNOMS HealthcareSpec Grav, UA1.0101 - 1.03NOOK Healthcare Urobilinogen, UA1.00.2 - 12 mg/dLNOMS HealthcareNOMS HealthcareALL CBC WITH AUTO DIFFon 85-66-7655GGSRJFJFA ABSOLUTE AUTO0.1NOMS HealthcareBasophils/100 WBC (Bld)0.4 %0.2 - 2.0 %NOMS HealthcareEosinophils/100 WBC (Bld)1.0 %0.9 - 7.0 % NOMS HealthcareErythrocyte distribution width (RBC) [Ratio]12.4 %11.0 - 15.0 % NOMS HealthcareHematocrit (Bld) [Volume fraction]35.8 %Low36.0 - 48.0 %NOMS HealthcareHemoglobin (Bld) [Mass/Vol]12.2 g/dL12.0 - 16.0 g/dLOzarks Medical Center IMMATURE GRANULOCYTES ABS AUTO0.06HighOzarks Medical CenterImmature granulocytes/100 WBC (Bld)0.5 %0.0 - 0.5 %[facility] CenterInterpretation and review of laboratory resultsAbnormalOzarks Medical CenterLYMPHOCYTES ABSOLUTE AUTO1.7NOLee's Summit Hospital Lymphocytes/100 WBC (Bld)15.1 %Low20.5 - 60.0 %[facility] HospitalH (RBC) [Entitic mass]32.0 pg26.7 - 34.0 pgWashington County Memorial HospitalHC (RBC) [Mass/Vol]34.1 g/dL29.9 - 35.2 g/dLWashington County Memorial HospitalV (RBC) [Entitic vol]94.0 fL81.0 - 99.0 fLOzarks Medical CenterMONOCYTES ABSOLUTE AUTO0.7NOLee's Summit HospitalMonocytes/100 WBC (Bld)6.2 % 1.7 - 12.0 %[facility] CenterNEUTROPHILS ABSOLUTE AUTO8.9HighOzarks Medical Center Neutrophils/100 WBC (Bld)76.8 %High43.0 - 75.0 %[facility] Medical CenterPlatelet mean volume (Bld) [Entitic vol]10.0 fL9.5 - 13.5 fLOzarks Medical CenterTB EO #0.1NOMS [facility] County HospitalTB GQJ572NRTQLee's Summit HospitalTB RBC3.81LowNOCoxHealth WBC11.6High [facility] CenterCLINISYNCNSaint Luke's Health SystemUrinalysis macro (dipstick) panel (U)on 73-27-1698Xenoqkxuj, UANegativeNegative - 4(70) +++ mg/dLMOAB REGIONAL [facility]ITAL HealthcareBlood, UANegativeNegative - 50 Edin/mcLNOMS HealthcareClarity, UAClearNOOK Healthcare Color, UAYellowNOOK HealthcareGlucose, UANegativeNegative - 2000(110) ++++ mg/dL [facility] CenterInterpretation and review of laboratory resultsAbnormalMOAB REGIONAL [facility]OSPITAL HealthcareKetones, UANegativeNegative - 160(16) ++++ mg/dLOzarks Medical Center Leukocytes, UA1+Negative - 500+++ Tiffany/mcLNOMS HealthcareNitrite, UANegative Negative - PositiveNOOK HealthcarepH, UA6.55 - 9NOMS HealthcareProtein, UA NegativeNegative - 1999(20) ++++ mg/dLNOMS HealthcareSpec Grav, UA1.0151 - 1.03 NOMS HealthcareUrobilinogen, UA2.00.2 - 12 mg/dLNOMS HealthcareNOMS HealthcareUS OB 14+ WEEKS ANATOMY SCANon 58-45-1461SO OB 14+ WEEKS ANATOMY SCANFINDINGS: A single, [...] Delivery: 05/04/25 Gestational Age as of 11/13/2024: 12s4iGyeokhgafh macro (dipstick) panel (U)on 30-81-3025Hrdqjcicm, UANegativeNegative - 4(70) +++ mg/dLNOMS HealthcareBlood, UANegativeNegative [...] HealthcareNOMS Healthcare Urinalysis macro (dipstick) panel (U)on 79-86-2076Toreioncu, UANegativeNegative - 4(70) +++ mg/dLNOMS HealthcareBlood, UANegativeNegative [...] mg/dLNOMS HealthcareNOMS HealthcareUrinalysis macro (dipstick) panel (U)on 87-51-4290Hzolbdcwh, UANegativeNegative - 4(70) +++ mg/dL NOMS HealthcareBlood, UANegativeNegative - 50 Edin/mcLNOMS HealthcareClarity, UA ClearNOMS HealthcareColor, UAYellowNOMS HealthcareGlucose, UANegativeNegative - 2000(110) ++++ mg/dLNOOK HealthcareInterpretation and review of laboratory resultsNormalNOMS HealthcareKetones, UANegativeNegative - 160(16) ++++ mg/dLNOMS HealthcareLeukocytes, UANegativeNegative - 500+++ Tiffany/mcLNOMS HealthcareNitrite, UANegativeNegative - PositiveNOMS HealthcarepH, UA85 - 9NOMS HealthcareProtein, UANegativeNegative - 2000(20) ++++ mg/dLNOMS HealthcareSpec Grav, UA1.011 - 1.03 NOMS HealthcareUrobilinogen, UA0.20.2 - 12 mg/dLNOOK HealthcareNOOK Healthcare ALL CBC WITH AUTO DIFFon 67-62-5132GTEPODBWO ABSOLUTE AUTO0.1N[facility] Healthcare Basophils/100 WBC (Bld)0.5 %0.2 - 2.0 %NOMS HealthcareEosinophils/100 WBC (Bld) 1.3 %0.9 - 7.0 %NOMS HealthcareErythrocyte distribution width (RBC) [Ratio]11.9 %11.0 - 15.0 %NOMS HealthcareHematocrit (Bld) [Volume fraction]38.6 %36.0 - 48.0 %NOMS HealthcareHemoglobin (Bld) [Mass/Vol]12.9 g/dL12.0 - 16.0 g/dLNOOK HealthcareIMMATURE GRANULOCYTES ABS AUTO0.03NOOK HealthcareImmature granulocytes/100 WBC (Bld)0.2 %0.0 - 0.5 %NOM HealthcareInterpretation and review of laboratory resultsAbnormalNOMS HealthcareLYMPHOCYTES ABSOLUTE AUTO2.9 NOMS HealthcareLymphocytes/100 WBC (Bld)23.1 %20.5 - 60.0 %[facility] CenterMCH (RBC) [Entitic mass]31.4 pg26.7 - 34.0 pgNOOK HealthcareHC (RBC) [Mass/Vol] 33.4 g/dL29.9 - 35.2 g/dLNOOK HealthcareMCV (RBC) [Entitic vol]93.9 fL81.0 - 99.0 fLNOOK HealthcareMONOCYTES ABSOLUTE AUTO0.8NOOK HealthcareMonocytes/100 WBC (Bld)6.5 %1.7 - 12.0 %NOM HealthcareNEUTROPHILS ABSOLUTE AUTO8.7HighNOOK HealthcareNeutrophils/100 WBC (Bld)68.4 %43.0 - 75.0 %NOM HealthcarePlatelet mean volume (Bld) [Entitic vol]9.9 fL9.5 - 13.5 fLNOOK HealthcareTBH EO #0.2NOMS HealthcareTBH NDM731TIOA Wood County HospitalTB RBC4.11LowNOLee's Summit HospitalTB WBC12.7High [facility] HealthcareCLINISYNCNOMS HealthcareHCG ( test) Ql (U)on 09-14-2024 Interpretation and review of laboratory resultsAbnormalNOOK HealthcarePreg Test, UrPositiveNegativeNOFreeman Health System HealthcareUS OB TRANSVAGINALon 09-14-2024 [place] [address] Ultrasound Report Signed Patient: JYOTI TORRES MR#: [id number] : 2000 Acct:[id number] Age/Sex: 23 / F ADM Date: 09/14/24 Loc: US Attending Dr: Morro Doty D.O. Ordering Physician: Morro Doty D.O. Date of Service: 09/14/24 Procedure(s): US OB transvaginal Accession Number(s): [id number] cc: Morro Doty D.O.; JENNA BA [place] [id number] Patient Name: JYOTI TORRES MRN: [id number] date: 2000 Sex: F Assigned Patient Location: US Current Patient Location: US Accession/Order Number: [id number] Exam Date: 09/14/2024 11:08 Report Date: 09/14/2024 [...] Sherwood M.D. 09/14/2024 11:11 AM Dictation Location: [place] [address] Electronically authenticated by: [id number] Y Date: 09/14/2024 11:11 Dictated By: Анна Sherwood M.D. Signed By: 09/14/24 1114 DD/ 1111 TD/TT: Machine Iii Coremaker:SOHAILadiology, Radiologist, - 09/14/2024 [place] [address] Ultrasound Report Signed Patient: JYOTI TORRES MR#: [id number] : 2000 Acct:[id number] Age/Sex: 23 / F ADM Date: 09/14/24 Loc: US Attending Dr: Morro Doty D.O. Ordering Physician: Morro Doty D.O. Date of Service: 09/14/24 Procedure(s): US OB transvaginal Accession Number(s): [id number] cc: Morro Doty D.O.; JENNA BA [place] [address] Patient Name: JYOTI TORRES MRN: [id number] date: 2000 Sex: F Assigned Patient Location: US Current Patient Location: US Accession/Order Number: [id number] Exam Date: 09/14/2024 11:08 Report Date: 09/14/2024 [...] Sherwood M.D. 09/14/2024 11:11 AM Dictation Location: [place] [address] Electronically authenticated by: [id number] Y Date: 09/14/2024 11:11 Dictated By: Анна Sherwood M.D. Signed By: 09/14/24 1114 DD/ 1111 TD/TT: Machine Iii Coremaker: [facility] - BOSTONDiogenes HealthcareRadiology Study observation (narrative)[facility] CenterUS OB TRANSVAGINALOrdered By: Radiologist Radiology on 82-44-6132[facility] Work Phone: US OB TRANSVAGINALon [phone] OB TRANSVAGINALEXAM: US OB TRANSVAGINAL HISTORY: Dating. [...] II, MD, PHD at 31-Aug-2024 12:18:24 PM [facility] TeleradiologyNormalNot AvailableComment on above:Order Comment: US OB TRANSVAGINAL No LMP recorded (within months).RECURRENT VAGINITIS (HTRX)on 26-23-1369AMZMRGCGR MOQGAYY2TJND HealthcareATOPOBIUM VAGINAENot detectedNOOK HealthcareBVAB 2,3 (BACTERIAL VAGINOSIS ASSOCIATED BACTERIA 2, 3); MOBILUNCUS ZWL6EMNB Healthcare BVAB 2,3 (BACTERIAL VAGINOSIS ASSOCIATED BACTERIA 2, 3); MOBILUNCUS SPPNot detectedNOOK HealthcareCANDIDA ALBICANS, PARAPSILOSIS, VHLMYIOUZS98.742Abnormal [facility] HealthcareCANDIDA ALBICANS, PARAPSILOSIS, TROPICALISDetectedAbnormalNOMS HealthcareCANDIDA DKILLEZT7QJCT HealthcareCANDIDA GLABRATANot detectedNOMS HealthcareCANDIDA CIIJNT0CDOI HealthcareCANDIDA KRUSEINot detectedNOMS HealthcareCHLAMYDIA TOGKVRBRPPK3NGRM HealthcareCHLAMYDIA TRACHOMATISNot detected NOMS HealthcareGARDNERELLA ZTXTWVKVS6IFSX HealthcareGARDNERELLA VAGINALISNot detectedNOMS HealthcareInterpretation and review of laboratory resultsAbnormal NOMS HealthcareMEGASPHAERA (TYPES 1, 2)0NOMS HealthcareMEGASPHAERA (TYPES 1, 2) Not detectedNOMS HealthcareMYCOPLASMA CKBUUXHXLD7CSRM HealthcareMYCOPLASMA GENITALIUMNot detectedNOMS HealthcareNEISSERIA GXKEAGQATAH0DFFG Healthcare NEISSERIA GONORRHOEAENot detectedNOMS HealthcareTRICHOMONAS OULTNFNMR2CGKC HealthcareTRICHOMONAS VAGINALISNot detectedNOMS HealthcareNOMS HealthcareHCG ( test) Ql (U)on 10-07-3759Eqbacroweohwak and review of laboratory resultsAbnormalNOMS HealthcarePreg Test, UrPositiveNegativeNOMS HealthcareNOOK HealthcareTBH PREG QUANT HCGon 44-38-4743NYB CWVWYYCSXOIK502iXD/mLNOMS HealthcareComment on above:5-50 0.2-1 WEEK 50-500 1-2 WEEKS 100-5,000 2-3 WEEKS 500-10,000 3-4 WEEKS 1,000-50,000 4-5 WEEKS 10,000-100,000 5-6 WEEKS 15,000-200,000 6-8 WEEKS 10,000-100,000 2-3 MONTHS CLINISYNCNOOK HealthcareCortisolon 28-29-7326Mljgadpj [Mass/Vol]11.0 microgram/dLInvalid Interpretation Code6.2-19.4[facility] Comment on above:Result Comment: Please Note: The reference interval and flagging for this test is for an AM collection. If this is a PM collection please use: Cortisol PM: 2.3-11.9 Performed at: [facility] [address] [id number] PhD Gilles Morrisformed By: #### [id number] #### [facility] [address], [place] [address]PKDnt 96-69-4616Ocagu gap [Moles/Vol]8 mmol/LNormal6-16[facility] HospitalComment on above:Performed By: #### [id number] #### [facility] [address], [place] [address]Amsizxf [Mass/Vol]8.3 mg/dLLow8.9-11.1FFlower HospitalComment on above:Performed By: #### [id number] #### [facility] [address], [place] [address]Ntsnmqwd [Moles/Vol]109 mmol/EDzjwbw139-997XjpisxGeorgetown Behavioral HospitalComment on above:Performed By: #### [id number] #### [facility] [address], [place] [address]EM8 [Moles/Vol]27 mmol/JNzekvt24-69LktqvqGeorgetown Behavioral Hospital Comment on above:Performed By: #### [id number] #### [facility] [address], [place] [address]Cugfgagogs [Mass/Vol]0.5 mg/dLNormal0.5-1.3FFlower HospitalComment on above:Performed By: #### [id number] #### [facility] [address], [place] [address]Vhvitqg [Mass/Vol]104 mg/cIHhersp23-189YpqpyzGeorgetown Behavioral HospitalComment on above:Performed By: #### [id number] #### [facility] [address], [place] [address]Cfpniwusr [Moles/Vol]4.0 mmol/LNormal3.5-5.3FFlower HospitalComment on above:Performed By: #### [id number] #### [facility] [address], [place] [address]Mxkblc [Moles/Vol]140 mmol/WCfkkxd923-450ZuvztpGeorgetown Behavioral HospitalComment on above:Performed By: #### [id number] #### [facility] [address], [place] [address]Pddi nitrogen [Mass/Vol]10 mg/dLNormal5-21[facility] HospitalComment on above:Performed By: #### [id number] #### [facility] [address], [place] [address]Pdgp nitrogen/Creatinine [Mass ratio]20 No QwglxJygbqu95-33 [facility] HospitalComment on above:Performed By: #### [id number] #### [facility] [address] [place] [address]DIV w/ Auto Diffon 66-39-7184Kkhwrlhsd/100 WBC (Bld)0.8 %Normal 0.0-2.0[facility] HospitalComment on above:Performed By: #### [id number] #### [facility] [address] [place] [address]Xhsuekzjf/Leukocytes Auto (Bld) [Pure # fraction]0.1 E9/LNormal 0.0-0.2FFlower HospitalComment on above:Performed By: #### [id number] #### [facility] [address] [place] [address]Irfcbjuhfoa (Bld) [#/Vol]0.2 E9/LNormal0.0-0.5FFlower HospitalComment on above:Performed By: #### [id number] #### [facility] [address] [place] [address]Nhhwmsxfecz/100 WBC (Bld)3.6 %Normal0.0-8.0[facility] HospitalComment on above:Performed By: #### [id number] #### [facility] [address] [place] [address]Yyblkzbpgfv distribution width (RBC) [Ratio]12.6 %Normal 10.9-14.2FFlower HospitalComment on above:Performed By: #### [id number] #### [facility] [address] [place] [address] 26[address]Tgjpuxubqz (Bld) [Volume fraction]35.7 %Jhltcm41.0-46.0[facility] HospitalComment on above:Performed By: #### [id number] #### [facility] [address] [place] [address]Rdadgcxvuj (Bld) [Mass/Vol]12.6 g/fLBwjmfv13.0-16.0[facility] HospitalComment on above:Performed By: #### [id number] #### [facility] [address] [place] [address]Rdkmeliskhd (Bld) [#/Vol]2.1 E9/LNormal1.0-4.0[facility] HospitalComment on above:Performed By: #### [id number] #### [facility] [address] [place] [address]Nlcghkdqajv/100 WBC (Bld)30.7 %Zztqih95.0-50.0[facility] HospitalComment on above:Performed By: #### [id number] #### [facility] [address] [place] [address] 283[address]SDU (RBC) [Entitic mass]32.9 esXutpnp61.0-34.0[facility] HospitalComment on above:Performed By: #### [id number] #### [facility] [address] [place] [address] 230[address]OKQH (RBC) [Mass/Vol]35.3 g/gJZzrmcm95.4-36.0[facility] HospitalComment on above:Performed By: #### [id number] #### [facility] [address] [place] [address] 316[address]GHT (RBC) [Entitic vol]93.4 iYNpethm27.0-100.0[facility] HospitalComment on above:Performed By: #### [id number] #### [facility] [address] [place] [address] 101[address]Hfuqbncmz (Bld) [#/Vol]0.6 E9/LNormal0.2-1.0[facility] HospitalComment on above:Performed By: #### [id number] #### [facility] [address] [place] [address]Ahlshcgtgjp (Bld) [#/Vol]3.9 E9/LNormal2.0-7.5FFlower HospitalComment on above:Performed By: #### [id number] #### [facility] [address] [place] [address] 24214Mfbvigdradg/100 WBC (Bld)55.7 %Dbxknz11.0-75.0[facility] HospitalComment on above:Performed By: #### [id number] #### [facility] [address] [place] [address]Pbijuegb021.0 E9/MXhnxwp915.0-500.0[facility] Comment on above:Performed By: #### [id number] #### [facility] [address] [place] [address]Tvpnzdmb mean volume (Bld) [Entitic vol]7.8 fLNormal6.4-10.8 [facility] HospitalComment on above:Performed By: #### [id number] #### [facility] [address] [place] [address] 313[address]XJP (Bld) [#/Vol]3.8 E12/LLow4.3-5.9[facility] Comment on above:Performed By: #### [id number] #### [facility] [address] [place] [address]UCZ corrected for nucl RBC Auto (Bld) [#/Vol]7.0 E9/LNormal 4.0-11.0[facility] HospitalComment on above:Performed By: #### [id number] #### [facility] [address] [place] [address] 5[address]NCUTQNOMBVfvmryu By: SYSTEM SYSTEM on 43-54-3006Xauwz gap [Moles/Vol]8 mmol/LNormal6 - 16 mEq/LRemisol ChemCalcium [Mass/Vol]8.3 mg/dLLow 8.9 - 11.1 mg/dLRemisol ChemChloride [Moles/Vol]109 mmol/SZprpbq603 - 111 mmol/L Remisol ChemCO2 [Moles/Vol]27 mmol/IQeztbk57 - 31 mmol/LRemisol ChemCreatinine [Mass/Vol]0.5 mg/dLNormal0.5 - 1.3 mg/dLRemisol BkwvsDDZ763 mL/min/1.73 v9Teuglf >=59mL/min/1.73 o0Dlfuywx ChemGlucose [Mass/Vol]104 mg/yJXrycpv32 - 199 mg/dL Remisol ChemPotassium [Moles/Vol]4.0 mmol/LNormal3.5 - 5.3 mmol/LRemisol Chem Sodium [Moles/Vol]140 mmol/VVdknqa436 - 145 mmol/LRemisol ChemTSH Qn5.22 m[IU]/L Normal0.34 - 5.60 mcIU/mLRemisol ChemUrea nitrogen [Mass/Vol]10 mg/dLNormal5 - 21 mg/dLRemisol ChemUrea nitrogen/Creatinine [Mass ratio]20 mg/bzIjjrxg22 - 20 Remisol ChemDischarge Note-Nursingon 24-29-6453Jnhnpqlyx Note-NursingDischarge Note-Nursing JYOTI TORRES :2000 Visit Date:03/12/2024 Inpatient Discharge Instructions Your Care Team Admitting Physician - Thor RIZVI, Kai Lagos Consulting Physician - Remigio RIZVI, Anthony Flores MD, [facility] [place], XXXX Reason for Your Visit abdomenal [...] with a neurologist as well as a reed man. 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 Where: [address] [place] [address]- Follow Up with Jenna BA When: 03/15/2024 09:45 AM EST Where: [address] [facility] [place] [phone] Business (1) Follow Up with Mark RIZVI, [...] down and after you (more content not included)...NormalGeorgetown Behavioral HospitalHEMATOLOGYOrdered By: SYSTEM SYSTEM on 66-58-7578Caklhjasw/100 WBC (Bld)0.8 %Normal0.0 - 2.0 %Remisol Heme Basophils/Leukocytes Auto (Bld) [Pure # fraction]0.1 E9/LNormal0.0 - 0.2 E9/L Remisol HemeEosinophils (Bld) [#/Vol]0.2 E9/LNormal0.0 - 0.5 E9/LRemisol Heme Eosinophils/100 WBC (Bld)3.6 %Normal0.0 - 8.0 %Remisol HemeErythrocyte distribution width (RBC) [Ratio]12.6 %Hogqcp25.9 - 14.2 %Remisol HemeHematocrit (Bld) [Volume fraction]35.7 %Ahitgq67.0 - 46.0 %Remisol HemeHemoglobin (Bld) [Mass/Vol]12.6 g/uGNrjcpe96.0 - 16.0 gm/dLRemisol HemeLymphocytes (Bld) [#/Vol] 2.1 E9/LNormal1.0 - 4.0 E9/LRemisol HemeLymphocytes/100 WBC (Bld)30.7 %Normal 14.0 - 50.0 %Remisol HemeMCH (RBC) [Entitic mass]32.9 zmEvcmne92.0 - 34.0 pg Remisol HemeMCHC (RBC) [Mass/Vol]35.3 g/vBZfnsot45.4 - 36.0 gm/dLRemisol HemeMCV (RBC) [Entitic vol]93.4 oYFlgkgd20.0 - 100.0 fLRemisol HemeMonocytes (Bld) [#/Vol]0.6 E9/LNormal0.2 - 1.0 E9/LRemisol HemeMonocytes/100 WBC (Bld)9.2 % Normal4.0 - 14.0 %Remisol HemeNeutrophils (Bld) [#/Vol]3.9 E9/LNormal2.0 - 7.5 E9/LRemisol HemeNeutrophils/100 WBC (Bld)55.7 %Mfjhun19.0 - 75.0 %Remisol Heme Jgslhtac342.0 E9/PYfvabm881.0 - 500.0 E9/LRemisol HemePlatelet mean volume (Bld) [Entitic vol]7.8 fLNormal6.4 - 10.8 fLRemisol HemeRBC (Bld) [#/Vol]3.8 E12/LLow 4.3 - 5.9 E12/LRemisol HemeWBC corrected for nucl RBC Auto (Bld) [#/Vol]7.0 E9/L Normal4.0 - 11.0 E9/LRemisol HemeInpatient Clinical Summaryon 03-13-2024 Inpatient Clinical SummaryInpatient Clinical Summary [place] [address] Clinical Summary Person Information: Name: JYOTI TORRES Age: 23 Years : 2000 Sex: Female PCP: Jenna BA DO Marital Status: Race: White Ethnicity: Non- or Language: Grenadian Visit Id: Visit Reason: Abdominal pain; ABD PAIN /PASSED OUT Speciality: Acuity: Enc Type: Observation Med Service: Medical Arrival: 03/12/2024 05:43:15 Discharge: Dispo Type: Admitted as IP to this Hosp Address: [address] [place] [address] Provider Notes: Diagnosis: 1:Syncope; 2:Postural orthostatic tachycardia [...] Physician: Benjamin Flores MD; Anthony Flood MD; [facility] [place], XXXX Referring Physician: Follow up: With: Address: When: Jenna BA [address] [facility] [place] [address] [phone] [facility] (1) 03/15/2024 9:45 AM With: Address: When: Anthony Flood MD, [address]Dazz[address] Beauty GroupErin [address] [phone] 03/28/2024 1:40 PM Comments: 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 With: Address: When: Benjamin Flores MD, CAR Within 2 to 4 weeks Comments: Call for followup appointment Patient Education Information: Postural Orthostatic Tachycardia Syndrome; Orthostatic Hypotension; Near- Syncope, Ktyl-ha-EqpnSobokjNapruk [facility] HospitalInpatient Patient Summary on [id number] Patient SummaryInpatient Patient Summary [address] [address] Patient Discharge Instructions PERSON INFORMATION Name: JYOTI TORRES Date of : 2000 Current Date: 03/13/2024 12:34:22 PHYSICIANS Admitting Physician: Thor RIZVI, Kai Lagos Primary Care Physician: Jenna BA DO PCP Phone Number: [phone] Comment: Discharge Diagnosis: 1:Syncope; 2:Postural orthostatic tachycardia [...] with a neurologist as well as a reed man. Primary Care Physician to provide the following pending test results: None Follow up: With: Address: When: Jenna BA [address] [facility] [place] [address] [phone] Business (1) 03/15/2024 9:45 AM With: Address: When: Remigio RIZVI, KYLAH [place] [address] [employer] [place], [place] [id number] 03/28/2024 1:40 PM Comments: Will being Hue [...] [facility] Center Interdisciplinary Note - Case Manageron [id number] Note - Case ManagerInterdisciplinary Note - Cash Applications Representative CRM to room 327 Patient is awake, alert and oriented. Patient is from home with her spouse. He is her ride at [place]. He is present in room. Patient verified [...] darryl board updated. CRM following Dc date TBDNormalGeorgetown Behavioral HospitalComment on above:Result Comment: Electronically Signed By: Radha Trevino\.br\Date and Time Signed: 03/13/24 09:28 ESTTSH With T4fr Reflexon [id number] Qn5.22 m[IU]/LNormal0.34-5.60 [facility]al HospitalComment on above:Performed By: #### [id number] #### [facility] [address] [place], [place] [address]uBVVcc 20-00-8556bFPL525 mL/min/1.73 f7Veldjs>=59Georgetown Behavioral HospitalComment on above:Performed By: #### [id number] #### [facility] [address], [place] [address]UGVjp 83-66-5388Vwalt gap [Moles/Vol]9 mmol/LNormal6-16[facility] Behavioral HospitalComment on above:Performed By: #### [id number] #### [facility] [address], [place] [address]Bcnewfg [Mass/Vol]9.0 mg/dLNormal8.9-11.1FFlower HospitalComment on above:Performed By: #### [id number] #### [facility] [address], [place] [address]Gxnuwkni [Moles/Vol]106 mmol/GPyutes989-211KuyfpeGeorgetown Behavioral HospitalComment on above:Performed By: #### [id number] #### [facility] [address], [place] [address]YY8 [Moles/Vol]27 mmol/PRrulpy71-27BhsqxiGeorgetown Behavioral Hospital Comment on above:Performed By: #### [id number] #### [facility] [address], [place] [address]Ordopbvziu [Mass/Vol]0.6 mg/dLNormal0.5-1.3FFlower HospitalComment on above:Performed By: #### [id number] #### [facility] [address] [place], [place] [address]Duxfkjv [Mass/Vol]108 mg/qFZrhyjy16-293XjavbrGeorgetown Behavioral HospitalComment on above:Performed By: #### [id number] #### [facility] [address], [place] [address]Qpvuqunvu [Moles/Vol]3.9 mmol/LNormal3.5-5.3FFlower HospitalComment on above:Performed By: #### [id number] #### [facility] [address], [place] [address]Viebwy [Moles/Vol]138 mmol/BLtulkb025-263PyqnmtGeorgetown Behavioral HospitalComment on above:Performed By: #### [id number] #### [facility] [address], [place] [address]Rejr nitrogen [Mass/Vol]11 mg/dLNormal5-21[facility] Behavioral HospitalComment on above:Performed By: #### [id number] #### [facility] [address], [place] [address]Ozhg nitrogen/Creatinine [Mass ratio]18 No RxbkhAsziuv38-74 [facility] HospitalComment on above:Performed By: #### [id number] #### [facility] [address] [place], [place] [address]UXF w/ Auto Diffon 29-98-4741Yyohynhaa/100 WBC (Bld)0.2 %Normal 0.0-2.0[facility] Behavioral HospitalComment on above:Performed By: #### [id number] #### [facility] [address] [place] [address]Btthdnkch/Leukocytes Auto (Bld) [Pure # fraction]0.0 E9/LNormal 0.0-0.2FFlower HospitalComment on above:Performed By: #### [id number] #### [facility] [address] [place] [address]Zuezokemxdd (Bld) [#/Vol]0.1 E9/LNormal0.0-0.5FFlower HospitalComment on above:Performed By: #### [id number] #### [facility] [address] [place] [address]Zqlpwdhpvnx/100 WBC (Bld)0.6 %Normal0.0-8.0[facility] Behavioral HospitalComment on above:Performed By: #### [id number] #### [facility] [address] [place] [address]Bxjlonwlzto distribution width (RBC) [Ratio]12.5 %Normal 10.9-14.2FFlower HospitalComment on above:Performed By: #### [id number] #### [facility] [address] [place] [address]Swbdktgohn (Bld) [Volume fraction]40.5 %Xljmqp07.0-46.0[facility]al HospitalComment on above:Performed By: #### [id number] #### [facility] [address] [place] [address]Czncqnokll (Bld) [Mass/Vol]13.7 g/lXAqzdvs96.0-16.0[facility] HospitalComment on above:Performed By: #### [id number] #### [facility] [address] [place] [address]Bjvkqqcdgyk (Bld) [#/Vol]1.7 E9/LNormal1.0-4.0[facility] HospitalComment on above:Performed By: #### [id number] #### [facility] [address] [place] [address]Ymutedshjmp/100 WBC (Bld)10.6 %Low14.0-50.0[facility] Behavior[facility] HospitalComment on above:Performed By: #### [id number] #### [facility] [address] [place] [address]30[address]KVQ (RBC) [Entitic mass]31.4 tzPgekjh53.0-34.0[facility] HospitalComment on above:Performed By: #### [id number] #### [facility] [address] [place] [address]VWEV (RBC) [Mass/Vol]33.8 g/bCLdwyoe25.4-36.0[facility] HospitalComment on above:Performed By: #### [id number] #### [facility] [address] [place] [address] 529[address]OCV (RBC) [Entitic vol]92.9 eDJgzizo69.0-100.0[facility] HospitalComment on above:Performed By: #### [id number] #### [facility] [address] [place] [address]Zgnvyehtc (Bld) [#/Vol]0.9 E9/LNormal0.2-1.0[facility] HospitalComment on above:Performed By: #### [id number] #### [facility] [address] [place] [address] 6[address]Hrevyqzzfxj (Bld) [#/Vol]13.5 E9/LHigh2.0-7.5FFlower HospitalComment on above:Performed By: #### [id number] #### [facility] [address] [place] [address]Nsrnooaqqkl/100 WBC (Bld)82.9 %High36.0-75.0[facility] HospitalComment on above:Performed By: #### [id number] #### [facility] [address] [place] [address]Abqqujew299.0 E9/KEwqvvg942.0-500.0[facility] Comment on above:Performed By: #### [id number] #### [facility] [address] [place] [address]Uafpiwac mean volume (Bld) [Entitic vol]7.6 fLNormal6.4-10.8 [facility] HospitalComment on above:Performed By: #### [id number] #### [facility] [address] [place] [address]KVY (Bld) [#/Vol]4.4 E12/LNormal4.3-5.9[facility] HospitalComment on above:Performed By: #### [id number] #### [facility] [address] [place] [address]MKM corrected for nucl RBC Auto (Bld) [#/Vol]16.3 E9/LHigh 4.0-11.0[facility] HospitalComment on above:Performed By: #### [id number] #### [facility] [address] [place] [address]RENREAFHDBsucjwp By: SYSTEM SYSTEM on 79-57-7688Pgrudqn [Mass/Vol]4.1 g/dLNormal3.3 - 5.0 gm/dLRemisol ChemAlbumin/Globulin [Mass ratio] 1.5 {ratio}Normal1.1 - 2.2Remisol ChemALP [Catalytic activity/Vol]38 [iU]/d Bjyphw37 - 98 Int._Unit/LRemisol ChemALT No additional P-5'-P [Catalytic activity/Vol]14 [iU]/dNormal6 - 46 Int._Unit/LRemisol ChemAnion gap [Moles/Vol]9 mmol/LNormal6 - 16 mEq/LRemisol ChemAST [Catalytic activity/Vol]16 [iU]/dNormal 5 - 43 Int._Unit/LRemisol ChemBilirubin [Mass/Vol]0.7 mg/dLNormal0.0 - 1.1 mg/dL Remisol ChemBilirubin.direct [Mass/Vol]0.1 mg/dLNormal0.0 - 0.4 mg/dLRemisol ChemBilirubin.indirect [Mass or moles/Vol]0.6 mg/dLNormal0.1 - 0.9 mg/dLRemisol ChemCalcium [Mass/Vol]9.0 mg/dLNormal8.9 - 11.1 mg/dLRemisol ChemChloride [Moles/Vol]106 mmol/CYokauv918 - 111 mmol/LRemisol ChemCO2 [Moles/Vol]27 mmol/L Jwqssz88 - 31 mmol/LRemisol ChemCreatinine [Mass/Vol]0.6 mg/dLNormal0.5 - 1.3 mg/dLRemisol QhwidWIU465 mL/min/1.73 n9Ozebsv>=59mL/min/1.73 p7Nvkxocl Chem Globulin (S) [Mass/Vol]2.8 g/dLNormal1.4 - 4.0 gm/dLRemisol ChemGlucose [Mass/Vol]108 mg/tVSdikbk17 - 199 mg/dLRemisol ChemLipase [Catalytic activity/Vol]19 U/TSglctr26 - 58 unit/LRemisol ChemPotassium [Moles/Vol]3.9 mmol/LNormal3.5 - 5.3 mmol/LRemisol ChemProtein [Mass/Vol]6.9 g/dLNormal6.0 - 7.8 gm/dLRemisol ChemSodium [Moles/Vol]138 mmol/NPfqwae753 - 145 mmol/LRemisol ChemTroponin HSpg/mLLow10.10 - 27.10 [...] - 21 mg/dLRemisol ChemUrea nitrogen/Creatinine [Mass ratio]18 mg/xqAmyxsi06 - 20Remisol ChemCT Abdomen/Pelvis w/ Contraston 90-99-6104RT Abdomen/Pelvis w/ ContrastExam Date/Time: 03/12/2024 06:49 EST [...] amount in ml's: 100 Rectal Contrast Given? NoNormalOur [facility] Clinical Summaryon [id number] Clinical SummaryED Clinical Summary [address] [address] ED Clinical Summary Person Information Name: JYOTI TORRES [facility] Age: 23 Years : 2000 Sex: Female Language: Grenadian PCP: Jenna BA DO Marital Status: Visit Id: Visit Reason: Abdominal pain; ABD PAIN /PASSED OUT Speciality: Acuity: 3 Enc Type: Observation Med Service: Medical Arrival: 03/12/2024 05:43:15 Discharge: LOS: 000 07:16 Checkin: 03/12/2024 05:43:15 Checkout: 03/12/2024 12:59:23 Dispo Type: Admitted as IP to this [facility] EVENTS: Event Name Event Status Request Date/Time [...] 03/12/2024 12:07:26 Lab Request 03/12/2024 12:07:26 ADDRESS: [address] [place] [id number] [facility] DOC NOTES: Addendum by Earl Foote DO on March 12, 2024 10:27:34 EST MEDICAL INFORMATION: Prescriptions Given: Medications to Continue with No Changes Other Medications ethinyl estradiol-levonorgestrel (Balcoltra) By Mouth every day. PATIENT EDUCATION INFORMATION: Instructions: Follow up: DIAGNOSIS: 1:Syncope; 2:Postural orthostatic tachycardia syndrome [POTS]; 3:Orthostatic syncope; 4:Abdominal pain, acute; 5:Hypotension; 6:LeukocytosisNormalFisher Willowbrook Medical CenterED Note-Physicianon [id number] Note-PhysicianED Note-Physician Basic Information Time Seen: Tuan [...] and Complexity of Problems Differential Diagnosis: [] [facility] Data External documents reviewed: [] My [...] Lymph Auto: 10.6 % Low (03/12/24 06:09:00) Butts Auto: 5.7 % (03/12/24 06:09:00) Eos Auto: 0.6 % (03/12/24 06:09:00) Basophil Auto: 0.2 % (03/12/24 06:09:00) Neutro Absolute: 13.5 E9/L High (03/12/24 06:09:00) Lymph Absolute: 1.7 E9/L (03/12/24 06:09:00) Butts Absolute: 0.9 E9/L (03/12/24 06:09:00) Eos Absolute: 0.1 E9/L (03/12/24 06:09:00) Basophil Absolute: 0 E9/L (03/12/24 06:09:00) Gl (more content not included)...[facility] HospitalComment on above:Result Comment: Electronically Signed By: [...] and Complexity of Problems Differential Diagnosis: [] [facility] Data External documents reviewed: [] My [...] Lymph Auto: 10.6 % Low (03/12/24 06:09:00) Butts Auto: 5.7 % (03/12/24 06:09:00) Eos Auto: 0.6 % (03/12/24 06:09:00) Basophil Auto: 0.2 % (03/12/24 06:09:00) Neutro Absolute: 13.5 E9/L High (03/12/24 06:09:00) Lymph Absolute: 1.7 E9/L (03/12/24 06:09:00) Butts Absolute: 0.9 E9/L (03/12/24 06:09:00) Eos Absolute: 0.1 E9/L (03/12/24 06:09:00) Basophil Absolute: 0 E9/L (03/12/24 06:09:00) Gl (more content not included)...[facility] HospitalComment on above:Result Comment: Electronically Signed By: Tuan Lovell DO\.br\Date and Time Signed: 03/12/24 06:46 ESTED Patient Education Noteon 65-25-7947SQ Patient Education NoteED Patient Education NoteNoAdena [facility] Patient Summaryon [id number] Patient SummaryED Patient Summary [place] [id number] Patient Discharge Instructions Person Information Name: JYOTI TORRES Age: 23 Years Arrival Date: 03/12/2024 05:43:15 Discharge Diagnosis: 1:Syncope; 2:Postural orthostatic tachycardia syndrome [POTS]; 3:Orthostatic syncope; 4:Abdominal pain, acute; 5:Hypotension; 6:Leukocytosis Primary Care Physician: Jenna BA DO Provider Information Primary Provider: Tuan Lovell DO Advanced Uc Architect:None The exam and treatment you received in the Emergency Department were for an urgent problem and are not intended as complete care. It is important that you follow up with a doctor, nurse practitioner,or physician???s surgeon's assistant for ongoing care. If your symptoms [...] opioids can be used to help relieve npbiwpww-dy-cgrnbx pain and are often prescribed following a [...] be struggling with addiction, tell your health urgent care nurse practitioner and askfor guidance or call [facility]???S National He (more content not included)...[facility] HospitalExtra Blueon 81-89-6283Ogfd Collected PlasmaYesInvalid Interpretation [facility] HospitalComment on above:Performed By: #### [id number] #### [facility] [address], [place] [address]FKRLSQIYOUWdntjou By: SYSTEM SYSTEM on 67-78-3720Rqcotkryo/100 WBC (Bld)0.2 %Normal0.0 - 2.0 %Remisol HemeBasophils/Leukocytes Auto (Bld) [Pure # fraction]0.0 E9/LNormal0.0 - 0.2 E9/LRemisol HemeEosinophils (Bld) [#/Vol]0.1 E9/LNormal0.0 - 0.5 E9/LRemisol HemeEosinophils/100 WBC (Bld)0.6 %Normal0.0 - 8.0 %Remisol HemeErythrocyte distribution width (RBC) [Ratio]12.5 %Nnydfo89.9 - 14.2 %Remisol HemeHematocrit (Bld) [Volume fraction]40.5 %Dujbhk05.0 - 46.0 % Remisol HemeHemoglobin (Bld) [Mass/Vol]13.7 g/hJKsnpsc26.0 - 16.0 gm/dLRemisol HemeLymphocytes (Bld) [#/Vol]1.7 E9/LNormal1.0 - 4.0 E9/LRemisol Heme Lymphocytes/100 WBC (Bld)10.6 %Low14.0 - 50.0 %Remisol HemeMCH (RBC) [Entitic mass]31.4 gmSyeqph35.0 - 34.0 pgRemisol HemeMCHC (RBC) [Mass/Vol]33.8 g/dLNormal 31.4 - 36.0 gm/dLRemisol HemeMCV (RBC) [Entitic vol]92.9 bNWtpidl63.0 - 100.0 fL Remisol HemeMonocytes (Bld) [#/Vol]0.9 E9/LNormal0.2 - 1.0 E9/LRemisol Heme Monocytes/100 WBC (Bld)5.7 %Normal4.0 - 14.0 %Remisol HemeNeutrophils (Bld) [#/Vol]13.5 E9/LHigh2.0 - 7.5 E9/LRemisol HemeNeutrophils/100 WBC (Bld)82.9 % High36.0 - 75.0 %Remisol IasbMxinedgn205.0 E9/GIdffnm602.0 - 500.0 E9/LRemisol HemePlatelet mean volume (Bld) [Entitic vol]7.6 fLNormal6.4 - 10.8 fLRemisol HemeRBC (Bld) [#/Vol]4.4 E12/LNormal4.3 - 5.9 E12/LRemisol HemeWBC corrected for nucl RBC Auto (Bld) [#/Vol]16.3 E9/LHigh4.0 - 11.0 E9/LRemisol HemeHep Func Panelon 52-34-8567Vikgpmo [Mass/Vol]4.1 g/dLNormal3.3-5.0[facility] And HospitalComment on above:Performed By: #### [id number] #### [facility] [address] [place], [place] [address]Xuwchjn/Globulin (S) [Mass conc ratio]1.8Frvxne4.1-2.2Fisher [facility] And HospitalComment on above:Performed By: #### [id number] #### [facility] [address] [place], [place] [address]JSE [Catalytic activity/Vol]38 Int._Unit/UIycrhv15-04UodgrsGeorgetown Behavioral HospitalComment on above:Performed By: #### [id number] #### [facility] [address], [place] [address]RRU No additional P-5'-P [Catalytic activity/Vol]14 Int._Unit/L Normal6-46[facility] HospitalComment on above:Performed By: #### [id number] #### [facility] [address], [place] [address]MML [Catalytic activity/Vol]16 Int._Unit/LNormal5-43[facility] HospitalComment on above:Performed By: #### [id number] #### [facility] [address] [place] [address]Adqqufgft [Mass/Vol]0.7 mg/dLNormal0.0-1.1FFlower HospitalComment on above:Performed By: #### [id number] #### [facility] [address] [place] [address]Nrjvmhnhp.direct [Mass/Vol]0.1 mg/dLNormal0.0-0.4FFlower HospitalComment on above:Performed By: #### [id number] #### [facility] [address] [place] [address]Aeamuiyev.indirect [Mass or moles/Vol]0.6 mg/dLNormal0.1-0.9 [facility] HospitalComment on above:Performed By: #### [id number] #### [facility] [address], [place] [address]Kixjcwjk (S) [Mass/Vol]2.8 g/dLNormal1.4-4.0[facility] HospitalComment on above:Performed By: #### [id number] #### [facility] [address] [place] [address] 210[address]Lspqqam [Mass/Vol]6.9 g/dLNormal6.0-7.8[facility] HospitalComment on above:Performed By: #### [id number] #### [facility] [address], [place] [address]Hficgruoojqgutijj Note - Case Manageron 03-12-2024 Interdisciplinary Note - Case ManagerInterdisciplinary Note - Cash Applications Representative CRM to room 327 Patient is a new admission Nursing is doing her admit at this time. CRM will see patient on 03/13Normal [facility] HospitalComment on above:Result Comment: Electronically Signed By: Radha Trevino\.br\Date and Time Signed: 03/12/24 13:56 ESTLipase Levelon 28-55-0787Krrqwh [Catalytic activity/Vol]19 U/LSqwsaq42-02GmxnrxGeorgetown Behavioral HospitalComment on above:Performed By: #### [id number] #### [facility] [address] [place] [address] 277[address]LPMURQXXIhujyyg By: Leyla Mercer on 31-88-9535IOO.beta subunit (U) [Moles/Vol]NegativeNormalPH[facility]ICI[facility] Man SeroTroponin 0 Hr.on 03-12-2024 Troponin HS<2.72Zhm05.10-27.10[facility]al HospitalComment on above:Result Comment: The 95% CI (Confidence Interval) PPV (Positive Predictive Value) for myocardial infarction in females is 38 pg/mL, in males 51 pg/mL. The results should be used in conjunction with clinical conditions of myocardial infarction. (Access High Sensitivity Troponin I Instructions For Use, Robin Pipestone, November 2017)Performed By: #### [id number] #### [facility] [address], [place] [address]F BetaHcg Qualon 87-06-1068JOH.beta subunit (U) [Moles/Vol] NegativeNormalGeorgetown Behavioral HospitalComment on above:Performed By: #### [id number] #### [facility] [address], [place] [address]YS with Cult Rflxon 97-69-2285Qtedzbod Auto Ql (U)TraceNormal TraceGeorgetown Behavioral HospitalComment on above:Performed By: #### [id number] #### [facility] [address] [place] [address]Okuojtiss Ql (U)NegativeNormalNegativeGeorgetown Behavioral HospitalComment on above:Performed By: #### [id number] #### [facility] [address], [place] [address]Nsdlumt (U)ClearNormalClearGeorgetown Behavioral HospitalComment on above:Performed By: #### [id number] #### [facility] [address] [place] [address]Qcjxl (U)YellowNormalYellowGeorgetown Behavioral HospitalComment on above:Result Comment: Microscopic readings are only performed on those samples that meet specific criteria set forth by [facility].Performed By: #### [id number] #### [facility] [address] [place] [address]Jipysaizel cells.squamous Auto (Urine sed) [#/Area]3-4Invalid Interpretation CodeGeorgetown Behavioral HospitalComment on above:Performed By: #### [id number] #### [facility] [address] [place] [address] 647[address]Jvxxpzi Ql (U)NegativeNormalNegSycamore Medical Center Comment on above:Performed By: #### [id number] #### [facility] [address], [place] [address]Mzzrnpfaut Auto test strip (U) [Mass/Vol]NegativeNormalNegative [facility] HospitalComment on above:Performed By: #### [id number] #### [facility] [address], [place] [address]Ykxscry Auto test strip Ql (U)NegativeNormalNegativeGeorgetown Behavioral HospitalComment on above:Performed By: #### [id number] #### [facility] [address] [place] [address] 16[address]Fcefsseoc esterase Auto test strip Ql (U)NegativeNormalNegative [facility] HospitalComment on above:Performed By: #### [id number] #### [facility] [address] [place] [address]Abbwi Auto Ql (U)TraceNormalNegSycamore Medical Center Comment on above:Performed By: #### [id number] #### [facility] [address] [place] [address] 484[address]Zputfea Auto test strip Ql (U)NegativeNormalNegativeGeorgetown Behavioral HospitalComment on above:Performed By: #### [id number] #### [facility] [address] [place] [address]aY (U)8.5 [pH]Invalid Interpretation Code5.0-9.0Georgetown Behavioral HospitalComment on above:Performed By: #### [id number] #### [facility] [address] [place] [address] 15232Hqvmlrf Ql (U)1+ mg/dLAbnormalNegativeGeorgetown Behavioral HospitalComment on above:Performed By: #### [id number] #### [facility] [address] [place] [address] [id number] Ql (U)9-9Yzvavq5-7Hqylya [facility] And HospitalComment on above:Performed By: #### [id number] #### [facility] [address] [place] [address] 98864Gkwsaedx gravity (U) [Rel density]1.017Invalid Interpretation Code1.005-1.030Ge[facility] Behavioral HospitalComment on above:Performed By: #### [id number] #### [facility] [address] [place] [address] 12858Gehnxpxzxepp (U) [Mass/Vol]NegativeNormalNegativeGeorgetown Behavioral HospitalComment on above:Performed By: #### [id number] #### L[facility]ano [facility] [address] [place] [address] 60380JOQ Auto (Urine sed) [#/Area]4-1Kvwfqv3-0Bwembr [facility] HospitalComment on above:Performed By: #### [id number] #### [facility] [address] [place], [place] [address]Wbsd of Urine collection methodClean CatchNormalFisher [facility] HospitalComment on above:Performed By: #### [id number] #### [facility] [address] [place], [place] [address]AEBLICPAHNBvqiisk By: SYSTEM SYSTEM on 40-86-1501Faiakktu Auto Ql (U)Trace /HPFNormalTrace/HPFFT UA Auto SSBilirubin Ql (U)NegativeNormal Negativemg/dLPH[facility] Auto SSClarity (U)Clear (03/12/24 6:09 AM)NormalClearFINTEGRIS [facility] [facility] Auto SSColor (U)Yellow 1 (03/12/24 6:09 AM)NormalYellowPH[facility] [place] UA Auto SSComment on above:Interpretive Data: Microscopic readings are only performed on those samples that meet specific criteria set forth by [facility].Epithelial cells.squamous Auto (Urine sed) [#/Area]3-4 graded/HPFInvalid Interpretation CodeFT UA Auto SSGlucose Ql (U)NegativeNormalNegativemg/dLPH[facility]A Auto SS Hemoglobin Auto test strip (U) [Mass/Vol]NegativeNormalNegativemg/dLFT UA Auto SSKetones Auto test strip Ql (U)NegativeNormalNegativemg/dLFT UA Auto SS Leukocyte esterase Auto test strip Ql (U)NegativeNormalNegativeLeu/uLFT UA Auto SSMucus Auto Ql (U)Trace graded/LPFNormalNegativegraded/LPFFTMC UA Auto SS Nitrite Auto test strip Ql (U)NegativeNormalNegativemg/dLFT UA Auto SSpH (U) 8.5 *NA* (03/12/24 6:09 AM)Invalid Interpretation Code5.0 - 9.0FT UA Auto SSProtein Ql (U)1+ mg/dLInvalid Interpretation CodeNegativemg/dLPH[facility]A Auto SSRBC Ql (U)0-3 graded/HPFNormal0-3graded/[facility] UA Auto SSSpecific gravity (U) [Rel density] 1.017 *NA* (03/12/24 6:09 AM)Invalid Interpretation Code1.005 - 1.030[facility] Auto SS Urobilinogen (U) [Mass/Vol]NegativeNormalNegativemg/dLPH[facility]IC[facility]A Auto SSWBC Auto (Urine sed) [#/Area]0-5 graded/HPFNormal0-5graded/HPFPH[facility]IC[facility]A Auto SSURINALYSIS Ordered By: Tuan Lovell on 69-88-9721VX Spec DescClean Catch (03/12/24 6:09 AM)NormalPH[facility] UA Auto SS us Pelvis Non-OB Completeon 05-92-3779SL Pelvis Non-OB CompleteExam Date/Time: 03/12/2024 08:08 EST [...] JEREMIAH Technologist: CHELY Technical Comments Transabdominal Ultrasound PerformedNormalGeorgetown Behavioral HospitaleGFRon 93-29-1150zDRB620 mL/min/1.73 l2Myhzsc>=59Georgetown Behavioral HospitalComment on above:Performed By: #### [id number] #### [facility] [address] [place], [place] [address]UDI ACOG PANEL 2: 21 to 29on 06-03-2022..NormalMercy Health Allen HospitalComment on above:Performed By: #### [id number] #### [facility] [address] [place] [address] Dr. Vernon Franco Gdln ACOG Plnumef79-19ThxpkjQokUniversity Hospitals Samaritan Medical CenterComment on above:Performed By: #### [id number] #### [facility] [address] [place] [address] Dr. Vernon MerinoDIAGNOSIS:CommentMartin Memorial HospitalComment on above: Result Comment: NEGATIVE FOR INTRAEPITHELIAL LESION OR MALIGNANCY.Performed By: #### [id number] #### [facility] [address] [place] [address] Dr. Vernon MerinoMethodology:CommentNormMarymount HospitalComment on above: Result Comment: This liquid based ThinPrep(R) pap test was screened with the use of an image guided system.Performed By: #### [id number] #### [facility] [address] [place] [address] Dr. Vernon MerinoNote:CommentMartin Memorial HospitalComment on above:Result Comment: The Pap smear is a screening test designed to aid in the detection of premalignant and malignant conditions of the uterine cervix. It is not a diagnostic procedure and should not be used as the sole means of detecting cervical cancer. Both false-positive and false-negative reports do occur. .Performed By: #### [id number] #### [facility] [address] [place] [address] Dr. Vernon MerinoPerformed by:CommentUniversity Hospitals St. John Medical Center on above: Result Comment: Marciano Swann Air Pollution Analyst (ASCP)Performed By: #### [id number] #### [facility] [address] [place] [address] Dr. Vernon MerinoReflex Criteria:CommentUniversity Hospitals St. John Medical Center on above:Result Comment: The HPV DNA reflex criteria were not met with this specimen result therefore, no HPV testing was performed. .Performed By: #### [id number] #### [facility] [address] [place] [address] Dr. Vernon MerinoSpecimedeanna adequacy:CommentUniversity Hospitals St. John Medical Center on above:Result Comment: Satisfactory for evaluation. Endocervical and/or squamous metaplastic cells (endocervical component) are present.Performed By: #### [id number] #### [facility] [address] [place] [address] Dr. Vernon Lee SERUMon 88-85-8662Aapmnkbsrrqpspejtelykr (DHEA)633 ng/dL Iakisn44-417Yfx [facility] on above:Result Comment: Age 1 - 5 years 0 - 67 6 - 7 years 0 - 110 8 - 10 years 0 - 185 11 - 12 years 0 - 201 13 - 14 years 0 - 318 15 - 16 years 39 - 481 17 - 19 years 40 - 491 >19 years 31 - 701Performed By: #### DHEA. #### [facility] [address] [place] [address] Dr. Vernon Lee-SULFATEon 45-30-5016MIOC-Hbsvidp560.0 ug/qKZwffvh562.0-431.7 The [facility] on above:Performed By: #### DHEASUL #### [facility] [address] [place] [address] Dr. Vernon Gabriel 16-93-4707XXV9.7 mIU/mLNormalMercy Health Allen HospitalComment on above:Result Comment: Adult Female: Follicular phase 3.5 - 12.5 Ovulation phase 4.7 - 21.5 Luteal phase 1.7 - 7.7 Postmenopausal 25.8 - 134.8Performed By: #### LBCFSH #### [facility] [address] [place] [address] Dr. Vernon MerinoLUTEINIZING HORMONE (LH)on 30-74-2079UR06.3 mIU/mLNormalMercy Health Allen HospitalComment on above:Result Comment: Adult Female: Follicular phase 2.4 - 12.6 Ovulation phase 14.0 - 95.6 Luteal phase 1.0 - 11.4 Postmenopausal 7.7 - 58.5Performed By: #### LBCLH #### [facility] [address] [place] [address] Dr. Vernon MerinoPROLACTINon 42-94-8279Ntwwnqhcq86.8 ng/mLNormal4.8-23.3The Albers HospitalComment on above:Performed By: #### PROLAC #### [facility] [address] [place] [address] Dr. Vernon MerinoCBC AUTO DIFFon 25-50-7832SDUI #0.1 103/ulNormal0.0-0.1The [facility] Hospital DaytonComment on above:Performed By: #### CBC ####[facility] [address] [place], [place] [address]DrDorie MerinoBasophils/100 WBC (Bld)1.1 %Normal0.2-2.0The [facility] Hospital DaytonComment on above:Performed By: #### CBC ####[facility] [address] [address]DrDorie ChangEO #0.1 103/ulNormal0.0-0.7The [facility] Hospital DaytonComment on above:Performed By: #### CBC ####[facility] [address] [place], [place] [address]DrDorie ChangEosinophils/100 WBC (Bld)1.6 %Normal 0.9-7.0The [facility] Hospital DaytonComment on above:Performed By: #### CBC ####[facility] [address] [place], [place] [address]Dr.Vernon Merino Erythrocyte distribution width (RBC) [Ratio]12.1 %Hahrpf59.0-15.0The [facility] Hospital DaytonComment on above:Performed By: #### CBC ####[facility] Rx[address]fzpjxq[address] [place], [place] [address]Dr.Vernon WilberHematocrit (Bld) [Volume fraction]44.5 %Dmfaxb89.0-48.0The [facility] Hospital DaytonComment on above:Performed By: #### CBC ####[facility] [address] [place], [place] [address]Dr.Vernon MerinoHemoglobin (Bld) [Mass/Vol]14.3 g/dL Kaervl20.0-16.0The [facility] Hospital DaytonComment on above:Performed By: #### CBC ####[facility] [address] [place], [place] [address]Dr. Vernon MerinoIG #0.01 10e3/ulNormal0.00-0.03The [facility] Hospital DaytonComment on above: Performed By: #### CBC ####[facility] [address] [place], [place] [address]Dr.Vernon MerinoIG %0.2 %Normal0.0-0.5The [facility] Hospital DaytonComment on above:Performed By: #### CBC ####[facility] [address] [place], [place] [address]Dr.Vernon MerinoLYMPH #1.8 103/ulNormal1.2-3.8The [facility] Hospital DaytonComment on above:Performed By: #### CBC ####[facility] [address] [place], [place] [address]Dr. Vernon MerinoLymphocytes/100 WBC (Bld)29.5 %Nihjno83.5-60.0The [facility] Comment on above:Performed By: #### CBC ####[facility] [address] [place], [place] [address]Dr.Vernon MerinoMANUAL DIFF REQNONormalThe [facility] Hospital DaytonComment on above:Performed By: #### CBC ####[facility] [address] [place], [place] [address]Dr.Vernon MerinoH (RBC) [Entitic mass]30.6 bzPyiqis48.7-34.0The Albers HospitalComment on above: Performed By: #### CBC ####[facility] [address] [place], [place] [address]Dr.Vernon MerinoHC (RBC) [Mass/Vol]32.1 g/dLNormal 29.9-35.2The [facility] Hospital DaytonComment on above:Performed By: #### CBC ####[facility] [address] [place], [place] [address]Dr. Vernon MerinoV (RBC) [Entitic vol]95.3 nPSvdwhv81.0-99.0The [facility] Comment on above:Performed By: #### CBC ####[facility] [address] [place], [place] [address]Dr.Vernon MerinoMONO #0.5 103/ulNormal0.3-0.8 The [facility] Hospital DaytonComment on above:Performed By: #### CBC ####[facility] [address] [place], [place] [address]Dr.Vernon Merino Monocytes/100 WBC (Bld)8.7 %Normal1.7-12.0The [facility] Hospital DaytonComment on above: Performed By: #### CBC ####[facility] [address] [place], [place] [address]Dr.Vernon MerinoNEUT #3.6 103/ulNormal1.4-6.5The [facility] Hospital DaytonComment on above:Performed By: #### CBC ####[facility] [address] [place], [place] [address]Dr.Vernon MerinoNeutrophils/100 WBC (Bld)58.9 %Amegqd31.0-75.0The [facility] Hospital DaytonComment on above:Performed By: #### CBC ####[facility] [address] [address]DrDorie MerinoPlatelet mean volume (Bld) [Entitic vol]9.9 fLNormal9.5-13.5 The [facility] Hospital DaytonComment on above:Performed By: #### CBC ####[facility] [address] [address]Dr.Vernon XhnsuWJG971 103/sbPiapnv844-371Dnn [facility] Hospital DaytonComment on above:Performed By: #### CBC ####[facility] [address] [address]Dr. Vernon MerinoRBC4.67 106/ulNormal4.20-5.40The [facility] Hospital DaytonComment on above: Performed By: #### CBC ####[facility] [address] [address]Dr.Vernon MerinoWBC6.1 103/ulNormal4.0-11.0The [facility] Hospital DaytonComment on above:Performed By: #### CBC ####[facility] [address] [address]DrDorie MerinoFREE T4on 77-07-2148Zoxv T4 [Mass/Vol]1.10 ng/dLNormal0.76-1.46The [facility] Comment on above:Performed By: #### FT4 #### [facility] [address] [address] [address] Vernon MerinoGLYCOHEMOGLOBIN A1Con 18-32-0450FSH RECOMMENDATIONSEE BELOWNormal The [facility] DaytonCombeaumont hospital on above:Result Comment: ADA RECOMMENDED LIMIT 4.0 - 6.0 ADA THERAPEUTIC TARGET < 7.0 ACTION SUGGESTED > 7.0Performed By: #### A1C #### [facility] [address] [address] [address] Vernon MerinoGlucose [Mass/Vol]105 mg/dLNormalThe [facility] Hospital DaytonComment on above:Performed By: #### A1C #### [facility] [address] [address] [address] Vernon MernioHbA1c (Bld) [Mass fraction]5.3 %Normal4.5-6.2The [facility] Hospital DaytonComment on above:Performed By: #### A1C #### [facility] [address] [place] [address] Dr. Vernon Chandler 97-39-3884BYN8.981 uIU/mLNormal0.358-3.740The [facility] Hospital DaytonComment on above:Performed By: #### TSH #### [facility] [address] [place] [address] [address] [address] Vernon MerinoUS PELVIS AND TRANSVAGon 06-19-7078DU PELVIS AND TRANSVAG EXAMINATION: US PELVIS AND [...] Electronically authenticated by: ANTHONY AQUINO Date: 2022-05-12 11:17Martin Memorial HospitalBody fluid albumin measurement (mass/volume)Ordered By: OUTREACH [employer]ITY on 85-13-8240Nnplmqv (Body fld) [Mass/Vol]4.0 g/dL3.2-5.5 [facility] RehabilitationCBC Without Differentialon 03-13-2022 Erythrocyte distribution width (RBC) [Ratio]12.9 %Dycuwl18.9-15.3FSt. Elizabeth HospitalComment on above:Performed By: #### OUTREACH CMP, OUTREACH LIPID, OUTREACH TSH, CBCNOOUTREACH #### [place] [address] USAHematocrit (Bld) [Volume fraction]42.3 %Zvmohp02.0-46.4 [facility] For RehabilitationComment on above:Performed By: #### OUTREACH CMP, OUTREACH LIPID, OUTREACH TSH, CBCNOOUTREACH #### [place] [address] USAHemoglobin (Bld) [Mass/Vol]14.1 g/jWWocwsy75.8-15.4 [facility] For RehabilitationComment on above:Performed By: #### OUTREACH CMP, OUTREACH LIPID, OUTREACH TSH, CBCNOOUTREACH #### [address]H (RBC) [Entitic mass]30.6 wsUdsdak13.7-34.3FSt. Elizabeth HospitalComment on above:Performed By: #### OUTREACH CMP, OUTREACH LIPID, OUTREACH TSH, CBCNOOUTREACH #### [place] [address] USAMCV (RBC) [Entitic vol]92.0 jYMtpgha99-035DuhrjxgecCleveland Clinic Children'S Hospital For RehabilitationComment on above:Performed By: #### OUTREACH CMP, OUTREACH LIPID, OUTREACH TSH, CBCNOOUTREACH #### [place] [address] USAMean Corpuscular HGB Conc33.2 g/uYTnxwxk17.0-35.0[facility] For RehabilitationComment on above:Performed By: #### OUTREACH CMP, OUTREACH LIPID, OUTREACH TSH, CBCNOOUTREACH #### [place] [address] USAPlatelet mean volume (Bld) [Entitic vol]8.6 fLNormal 6.3-10.7FSt. Elizabeth HospitalComment on above:Result Comment: PERFORMED BY: [place] [address] PATHOLOGIST BOATS RENTER YEN ESCOBAR M.D.Performed By: #### OUTREACH CMP, OUTREACH LIPID, OUTREACH TSH, CBCNOOUTREACH #### [facility] [address] [id number] USAPlatelets (Bld) [#/Vol]283 10*3/iGNfhiuq904-293NrcpsvohfCleveland Clinic Children'S Hospital For RehabilitationComment on above:Performed By: #### OUTREACH CMP, OUTREACH LIPID, OUTREACH TSH, CBCNOOUTREACH #### [facility] [address] [place] [address] USARBC (Bld) [#/Vol]4.60 10*6/uLNormal3.60-5.00[facility] For RehabilitationComment on above:Performed By: #### OUTREACH CMP, OUTREACH LIPID, OUTREACH TSH, CBCNOOUTREACH #### [facility] [address] [place] [address] USAWBC (Bld) [#/Vol]6.6 10*3/uLNormal3.8-11.6FSt. Elizabeth HospitalComment on above:Performed By: #### OUTREACH CMP, OUTREACH LIPID, OUTREACH TSH, CBCNOOUTREACH #### [facility] [address] [place] [address] USACMP Outreachon 45-65-4611Djxhonv [Mass/Vol]4.0 g/dLNormal 3.2-5.5FSt. Elizabeth HospitalComment on above:Performed By: #### OUTREACH CMP, OUTREACH LIPID, OUTREACH TSH, CBCNOOUTREACH #### [facility] [address] [place] [address] USAALP [Catalytic activity/Vol]42 U/DYrisqy23-37LyhidvsrpCleveland Clinic Children'S Hospital For RehabilitationComment on above:Performed By: #### OUTREACH CMP, OUTREACH LIPID, OUTREACH TSH, CBCNOOUTREACH #### [facility] [address] [place] [address] USAALT [Catalytic activity/Vol]21 U/NUswhrd99-14OhmkghpywCleveland Clinic Children'S Hospital For RehabilitationComment on above:Performed By: #### OUTREACH CMP, OUTREACH LIPID, OUTREACH TSH, CBCNOOUTREACH #### [facility] [address] [place] [address] USAAnion gap [Moles/Vol]9.3 mmol/LNormal6.0-15.0[facility] For RehabilitationComment on above:Performed By: #### OUTREACH CMP, OUTREACH LIPID, OUTREACH TSH, CBCNOOUTREACH #### [facility] [address] [place] [address] USAAST [Catalytic activity/Vol]22 U/NXapiiu97-47IxxapbtdoCleveland Clinic Children'S Hospital For RehabilitationComment on above:Performed By: #### OUTREACH CMP, OUTREACH LIPID, OUTREACH TSH, CBCNOOUTREACH #### [facility] [address] [place] [address] USABilirubin [Mass/Vol]0.6 mg/dLNormal0.3-1.2FSt. Elizabeth HospitalComment on above:Performed By: #### OUTREACH CMP, OUTREACH LIPID, OUTREACH TSH, CBCNOOUTREACH #### [facility] [address] [place] [address] USACalcium [Mass/Vol]9.2 mg/dLNormal8.2-10.2FSt. Elizabeth HospitalComment on above:Performed By: #### OUTREACH CMP, OUTREACH LIPID, OUTREACH TSH, CBCNOOUTREACH #### [facility] [address] [place] [address] USAChloride [Moles/Vol]103 mmol/WDkzsat39-730TedsydlfhCleveland Clinic Children'S Hospital For RehabilitationComment on above:Performed By: #### OUTREACH CMP, OUTREACH LIPID, OUTREACH TSH, CBCNOOUTREACH #### [facility] [address] [id number] USACO2 [Moles/Vol]27.8 mmol/GBjrhxp39.0-30.0[facility] For RehabilitationComment on above:Performed By: #### OUTREACH CMP, OUTREACH LIPID, OUTREACH TSH, CBCNOOUTREACH #### [facility] [address] [place] [address] USACreatinine [Mass/Vol]0.62 mg/dLNormal0.44-1.03[facility] For RehabilitationComment on above:Performed By: #### OUTREACH CMP, OUTREACH LIPID, OUTREACH TSH, CBCNOOUTREACH #### [facility] [address] [place] [address] USAEstimated GFR ( Sara> 60NormalCleveland Clinic Children'S Hospital For RehabilitationComment on above:Result Comment: GFR estimated reference range: According to KDOQI guidelines, <60 ml/min/1.73m2 is sufficient to diagnose a patient with chronic kidney disease.Performed By: #### OUTREACH CMP, OUTREACH LIPID, OUTREACH TSH, CBCNOOUTREACH #### [facility] [address] [place] [address] USAEstimated GFR (Non- Am> 60NormOhioHealth Arthur G.H. Bing, MD, Cancer CenterComment on above:Performed By: #### OUTREACH CMP, OUTREACH LIPID, OUTREACH TSH, CBCNOOUTREACH #### [facility] [address] [id number] USAGlucose [Mass/Vol]91 mg/eVIuufdb32-364PropjbjclCleveland Clinic Children'S Hospital For RehabilitationComment on above:Result Comment: Random Glucose Reference Range is dependent on time and content of last meal. Glucose of more than 200 mg/dL in a nonstressed, ambulatory subject supports the diagnosis of Diabetes Mellitus. ADA recommended reference rangePerformed By: #### OUTREACH CMP, OUTREACH LIPID, OUTREACH TSH, CBCNOOUTREACH #### [facility] [address] [id number] USAPotassium [Moles/Vol]4.1 mmol/LNormal3.5-5.1FSt. Elizabeth HospitalComment on above:Performed By: #### OUTREACH CMP, OUTREACH LIPID, OUTREACH TSH, CBCNOOUTREACH #### [facility] [address] [place] [address] USAProtein [Mass/Vol]6.8 g/dLNormal6.1-7.9[facility] For RehabilitationComment on above:Performed By: #### OUTREACH CMP, OUTREACH LIPID, OUTREACH TSH, CBCNOOUTREACH #### [facility] [address] [id number] USASodium [Moles/Vol]136 mmol/JFqdorw145-377QindnjcdrCleveland Clinic Children'S Hospital For RehabilitationComment on above:Performed By: #### OUTREACH CMP, OUTREACH LIPID, OUTREACH TSH, CBCNOOUTREACH #### [facility] [address] [id number] USAUrea nitrogen [Mass/Vol]9 mg/dLNormal9-23[facility] For RehabilitationComment on above:Performed By: #### OUTREACH CMP, OUTREACH LIPID, OUTREACH TSH, CBCNOOUTREACH #### [facility] [address] [place] [address] USACholesterol [Mass/volume] in Serum or PlasmaOrdered By: OUTREACH [facility] on 45-30-9839Moyrjeticvq [Mass/Vol]180 mg/eC626-741NvlxtxrphCleveland Clinic Children'S Hospital For RehabilitationComment on above:Chol less than 200 mg/dl low riskChol 201-239 mg/dl borderline riskChol 240 mg/dl and greater high riskCholesterol in LDL Calc [Mass/Vol]Ordered By: [facility] on 21-70-1757Ufgijkqtlwu in LDL [Mass/Vol]113 mg/dL0-100[facility] For RehabilitationComment on above: LDL ATP III CLASSIFICATIONLDL less than 100 mg/dL OptimalLDL 100-129 mg/dL Near or above neevudqBNR740-025 mg/dL Borderline highLDL 160-189 mg/dL HighLDL greater than 189 mg/dL Very highCholesterol in VLDL Calc [Mass/Vol]Ordered By: [facility] on 22-38-4613Eyvepttttsk in VLDL [Mass/Vol]11 mg/dLCleveland Clinic Children'S Hospital For RehabilitationCreatinine and Glomerular filtration rate.predicted panel (S/P/Bld)Ordered By: [facility] on 61-36-5145Mfwiigeepv [Mass/Vol]0.62 mg/dL0.44-1.03[facility] For RehabilitationErythrocyte distribution width Auto (RBC) [Ratio]Ordered By: [facility] on 09-12-9768Agopeaxqggr distribution width (RBC) [Ratio]12.9 %11.9-15.3FSt. Elizabeth Hospital Estimated glomerular filtration rate (GFR) non- AmericanOrdered By: OUTREACH [facility] on 40-51-7440TGY/1.73 sq M.predicted among non-blacks MDRD (S/P/Bld) [Vol rate/Area]> 60 mL/MinCleveland Clinic Children'S Hospital For RehabilitationHematocrit Auto (Bld) [Volume fraction]Ordered By: OUTREACH [facility] on 03-13-2022 Hematocrit (Bld) [Volume fraction]42.3 %34.0-46.4FSt. Elizabeth HospitalHemoglobin [Mass/volume] in BloodOrdered By: [facility] on 86-36-8759Jzrbfgzazx (Bld) [Mass/Vol]14.1 g/dL11.8-15.4FSt. Elizabeth HospitalLeukocytes [#/volume] corrected for nucleated erythrocytes in Blood by Automated counOrdered By: [facility] on 71-15-5477PTT corrected for nucl RBC Auto (Bld) [#/Vol]6.6 10*3/uL3.8-11.6FSt. Elizabeth HospitalLipid Profile Outreachon 24-47-7197Jnjfrkpepgj [Mass/Vol]180 mg/dLNormal 140-200[facility] For RehabilitationComment on above:Result Comment: Chol less than 200 mg/dl low risk Chol 201-239 mg/dl borderline risk Chol 240 mg/dl and greater high riskPerformed By: #### OUTREACH CMP, OUTREACH LIPID, OUTREACH TSH, CBCNOOUTREACH #### [facility] [address] [place] [address] USACholesterol in HDL [Mass/Vol]56 mg/oDLqdylu83-88YnnxqvddkCleveland Clinic Children'S Hospital For RehabilitationComment on above:Result Comment: HDL CHOL ATP-III CLASSIFICATION Cardiovascular Risk HDL > or equal to 60 mg/dL LOW HDL < 40 mg/dL HIGHPerformed By: #### OUTREACH CMP, OUTREACH LIPID, OUTREACH TSH, CBCNOOUTREACH #### [facility] [facility] [address] [place] [address] USACholesterol.total/Cholesterol in HDL [Mass ratio]3.2 {ratio}Normal<5.0[facility] For RehabilitationComment on above:Performed By: #### OUTREACH CMP, OUTREACH LIPID, OUTREACH TSH, CBCNOOUTREACH #### [facility] [address] [place] [address] USALDL Cholesterol,Pfxtdobkhm916 mg/dLHigh0-100[facility] For RehabilitationComment on above:Result Comment: LDL ATP III CLASSIFICATION LDL less than 100 mg/dL Optimal LDL 100-129 mg/dL Near or above optimal LDL 130-159 mg/dL Borderline high LDL 160-189 mg/dL High LDL greater than 189 mg/dL Very highPerformed By: #### OUTREACH CMP, OUTREACH LIPID, OUTREACH TSH, CBCNOOUTREACH #### [facility] [address] [place] [id number] USATriglyceride w/Qofixt37 mg/zOUpdmjh04-411RnyydmbbiCleveland Clinic Children'S Hospital For RehabilitationComment on above:Result Comment: TRIG ATP III CLASSIFICATION TRIG less than 150 mg/dL Normal TRIG 150-199 mg/dL Borderline high TRIG 200-500 mg/dL High TRIG greater than 500 mg/dL Very high Standard traceable to the Center for Disease Conrtrol and Prevention (CDC) test method.Performed By: #### OUTREACH CMP, OUTREACH LIPID, OUTREACH TSH, CBCNOOUTREACH #### [facility] [address] [place] [id number] USAVLDL BQXJBAPPALY69 mg/dLNoSumma Health Barberton CampusComment on above:Performed By: #### OUTREACH CMP, OUTREACH LIPID, OUTREACH TSH, CBCNOOUTREACH #### [facility] [address] [place] [id number] [facility] Auto (RBC) [Entitic mass]Ordered By: [facility] on 82-64-6184QIV (RBC) [Entitic mass]30.6 pg24.7-34.3FKettering Health MiamisburgHC Auto (RBC) [Mass/Vol]Ordered By: [facility] on 89-93-2986LINO (RBC) [Mass/Vol]33.2 g/dL32.0-35.0[facility] For RehabilitationMCV Auto (RBC) [Entitic vol]Ordered By: [facility] on 03-13-2022 MCV (RBC) [Entitic vol]92.0 dY28-539NtixajfalCleveland Clinic Children'S Hospital For RehabilitationNo Panel InformationOrdered By: [facility] on 28-05-5804Hmpqougqk GFR ()> 60 mL/MinCleveland Clinic Children'S Hospital For RehabilitationComment on above:GFR estimated reference range: According to KDOQI guidelines, <60 ml/min/1.73m2 is sufficient todiagnose a patient with chronic kidney disease.Pharmacy Creatinine Clearance (ChemN/[facility] ToledoTriglycerides Noarha07 mg/dL 35-149[facility] For RehabilitationComment on above:TRIG ATP III CLASSIFICATIONTRIG less than 150 mg/dL NormalTRIG 150-199 mg/dL Borderline highTRIG 200-500 mg/dL High TRIG greater than 500 mg/dL Very highStandard traceable to the Center for Disease Conrtrol and Prevention (CDC) test method. Platelet mean volume Auto (Bld) [Entitic vol]Ordered By: [facility] on 80-79-0995Ienomkms mean volume (Bld) [Entitic vol]8.6 fL6.3-10.7FSt. Elizabeth HospitalPlatelets Auto (Bld) [#/Vol]Ordered By: OUTREACH [facility] on 36-90-8987Jgquzimsh (Bld) [#/Vol]283 10*3/yQ770-633IxjudcqxbCleveland Clinic Children'S Hospital For RehabilitationProtein [Mass/volume] in Serum or PlasmaOrdered By: [facility] on 41-40-4394Xubpyuz [Mass/Vol]6.8 g/dL6.1-7.9[facility] Hospital For RehabilitationRBC Auto (Bld) [#/Vol]Ordered By: OUTREACH [facility] on 16-53-1157KWC (Bld) [#/Vol]4.60 10*6/uL3.60-5.00Miami Valley Hospitalerum or plasma alanine aminotransferase measurement without P-5'-P (enzymatic activiOrdered By: OUTREACH [facility] on 45-60-0120UIF No additional P-5'-P [Catalytic activity/Vol]21 U/Q23-49UuuefaeuuMiami Valley Hospitalerum or plasma alkaline phosphatase measurement (enzymatic activity/volume)Ordered By: OUTREACH [facility] on 62-55-7238NDX [Catalytic activity/Vol]42 U/L32-92 [facility] Hospitalerum or plasma anion gap determinationOrdered By: OUTREACH [facility] on 35-72-5787Bgcou gap [Moles/Vol]9.3 mmol/L6.0-15.0 [facility] Hospitalerum or plasma aspartate aminotransferase measurement (enzymatic activity/volume)Ordered By: OUTREACH [facility] on 26-15-8376YQW [Catalytic activity/Vol]22 U/M00-15LkienauzxMiami Valley Hospitalerum or plasma calcium measurement (mass/volume)Ordered By: OUTREACH [facility] on 41-49-8963Mecrkwm [Mass/Vol]9.2 mg/dL8.2-10.2FSt. Anthony's Hospitalerum or plasma chloride measurement (moles/volume)Ordered By: [facility] on 78-16-9840Ruwffpfg [Moles/Vol]103 mmol/Z95-006EipygftamMiami Valley Hospitalerum or plasma glucose measurement (mass/volume)Ordered By: [facility] on 82-09-1831Xrelbsr [Mass/Vol]91 mg/xS48-909KypbnppchCleveland Clinic Children'S Hospital For RehabilitationComment on above:ADA recommended reference rangeRandom Glucose Reference Range is dependent on time and content of last meal. Glucose of more than 200 mg/dL in a nonstressed, ambulatory subject supports the diagnosisof Diabetes Mellitus.Serum or plasma high density lipoprotein (HDL) cholesterol measurementOrdered By: [facility] on 70-52-0328Rezfebhbbdl in HDL [Mass/Vol]56 mg/rU71-12RqccjvprjCleveland Clinic Children'S Hospital For RehabilitationComment on above: HDL CHOL ATP-III CLASSIFICATION Cardiovascular RiskHDL > or equal to 60 mg/dL LOWHDL < 40 mg/dL HIGHSerum or plasma potassium measurement (moles/volume) Ordered By: [facility] on 44-63-5674Ohrjzkobj [Moles/Vol]4.1 mmol/L 3.5-5.1FSt. Anthony's Hospitalerum or plasma sodium measurement (moles/volume)Ordered By: [facility] on 12-26-2425Fpvmbq [Moles/Vol]136 mmol/S422-425CoeuhuqkrMiami Valley Hospitalerum or plasma total bilirubin measurement (mass/volume)Ordered By: [facility] on 41-52-2976Vhoiayvsv [Mass/Vol]0.6 mg/dL0.3-1.2FSt. Anthony's Hospitalerum or plasma total carbon dioxide measurement (moles/volume)Ordered By: [facility] on 87-84-4566WT6 [Moles/Vol]27.8 mmol/L22.0-30.0[facility] Serum or plasma total cholesterol/high density lipoprotein (HDL) cholesterol mass ratOrdered By: [facility] on 03-13-2022 Cholesterol.total/Cholesterol in HDL [Mass ratio]3.2 {ratio}<5.0[facility] Hospitalerum or plasma urea nitrogen measurement (mass/volume) Ordered By: OUTREACH [facility] on 52-11-8981Xazh nitrogen [Mass/Vol]9 mg/dL9-23 [facility] Hospital For RehabilitationTSH DL <= 0.005 mIU/L QnOrdered By: OUTREACH [facility] on 97-03-3466RSE Qn3.87 m[IU]/L0.45-5.33[facility] For RehabilitationThyroid Stimulating Hormoneon 57-96-8990VWC Qn3.87 m[IU]/LNormal0.45-5.33 [facility] For RehabilitationComment on above:Result Comment: PERFORMED BY: [facility] [address] [place] [id number] PATHOLOGIST [place] YEN ESCOBAR M.D.Performed By: #### OUTREACH CMP, OUTREACH LIPID, OUTREACH TSH, CBCNOOUTREACH #### [place] [id number] [facility] Vital Signs Date TimeVital SignValuePerforming FkqxfgjzdPngmnrof01-98-4201 10:54-0500Body mass index (BMI) [Ratio]33.27 kg/f5Yrvyo Lalitha DO Work Phone: [phone] [place], [place] [address]Nhvjlquvgw53-92-2187 10:54-0500Body syszwg10.91 kgCorey Lalitha DO Work Phone: [phone] [place], [place] [address]Tqpgetddhf32-43-0859 10:54-0500Diastolic blood vjevooym09 mm[Hg]Morro Lalitha DO Work Phone: [phone] [place], [place] [address]Eqbffukuyf33-57-7727 10:54-0500Systolic blood srhkungc816 mm[Hg]Morro Lalitha DO Work Phone: [phone] [place], [place] [address]Dtbxcyumsn63-88-6578 09:38-0400Body mass index (BMI) [Ratio]32.79 kg/m2Sunshine THAO Work Phone: [phone] CenterMrqwsnvske24-99-1243 09:38-0400Body hxqsim06.64 kgSunshine THAO Work Phone: [phone] CenterOtwkkvfmtm00-07-2148 09:38-0400Diastolic blood qqbhberr37 mm[Hg]Sunshine THAO Work Phone: [facility] CenterUofqieqpru94-01-2863 09:38-0400Systolic blood fasfobbg199 mm[Hg]Sunshine THAO Work Phone: [phone]-[facility] CenterThlhzpzqbb80-80-2795 10:35-0400Body mass index (BMI) [Ratio]32.17 kg/l4BoyvreabWalter Lambly DRIER OPERATOR HELPER Work Phone: [phone]-[facility] CenterGqpcrhpjzx57-00-5938 10:35-0400Body ylxksq64 kg Walter Pierreerly DRIER OPERATOR HELPER Work Phone: [phone] [place], [place] [address]Fvnytvkggy40-11-7875 10:35-0400Diastolic blood unavjtpn46 mm[Hg]Walter Emeli DRIER OPERATOR HELPER Work Phone: [phone] [place], [place] [address]Rgexwftmcf48-76-0323 10:35-0400Systolic blood rxxrfqxi930 mm[Hg]Walter Emeli DRIER OPERATOR HELPER Work Phone: [phone] [place], [place] [address]Qelhjjfryt26-87-2225 09:08-0400Body mass index (BMI) [Ratio]31.07 kg/g0QwaxdjtlWalter Pierreerly DRIER OPERATOR HELPER Work Phone: [phone] [place], [place] [address]Yynugbmern33-90-8513 09:08-0400Body onwnee36.1 kg Walter Pierreerly DRIER OPERATOR HELPER Work Phone: [phone] [place], [place] [address]Uevqwbeyek23-46-2648 09:08-0400Diastolic blood bhxhgthy67 mm[Hg]Walter Emeli DRIER OPERATOR HELPER Work Phone: [phone] [place], [place] [address]Gdjoqywfmy59-13-3685 09:08-0400Systolic blood mm[Hg]Walter Emeli DRIER OPERATOR HELPER Work Phone: [phone] [place], [place] [address]Pacvunneom26-47-3397 11:54-0400Body mass index (BMI) [Ratio]29.7 kg/m2Amy Caridad THAO Work Phone: [phone] [place], [place] [address]Kzlwhhufjn91-08-8228 11:54-0400Body .47 kgSunshine THAO Work Phone: [phone] [place], [place] [address]Tmxextxjfd27-31-1395 11:54-0400Diastolic blood dgqtptci31 mm[Hg]Sunshine THAO Work Phone: [phone] [place], [place] [address]Elvdgswcvh68-83-0110 11:54-0400Systolic blood rsyzhrgf667 mm[Hg]Sunshine THAO Work Phone: [facility] CenterGuugwziawu51-13-8542 09:32-0400Body mass index (BMI) [Ratio]29.35 kg/r6Wjohw Lalitha DO Work Phone: [facility] CenterSukshfgtah57-36-2251 09:32-0400Body .56 kgCorey Lalitha DO Work Phone: [facility] CenterWfsxcodlwc84-50-1768 09:32-0400Diastolic blood venygulm43 mm[Hg]Morrorajinder Weinbergo DO Work Phone: [facility] CenterZccqvtwlab12-07-9535 09:32-0400Systolic blood rchckdev464 mm[Hg]Morrorajinder Weinbergo DO Work Phone: [facility] CenterBcngshdmny36-95-5470 11:05-0400Body mass index (BMI) [Ratio]29.18 kg/m2[facility]06-06-2025 11:05-0400Body jhisyz98.11 kgCrossroads [facility] Center06-06-2025 11:05-0400Diastolic blood nupzbgtj03 mm[Hg][facility]06-06-2025 11:05-0400Systolic blood nunopqod299 mm[Hg][facility]05-20-2025 10:37-0400Body mass index (BMI) [Ratio]28.67 kg/m2Sunshine THAO Work Phone: [facility] CenterIpqjxpimxi70-62-0700 10:37-0400Body jcisxg49.75 kgSunshine THAO Work Phone: [facility] CenterUtbyrugsxd36-80-2758 10:37-0400Diastolic blood mm[Hg]Sunshine THAO Work Phone: [facility] CenterDfuwgmtgne97-57-2668 10:37-0400Systolic blood umjcrsjf905 mm[Hg]Sunshine THAO Work Phone: [facility] CenterUtkymyhlzq48-88-8310 14:00-0500Hourly [facility]12-03-2024 14:00-0500Promise to ReturnEmmanMemorial [facility] System12-03-2024 13:00-0500Hourly RoundingEmmanMemorial Health System12-03-2024 13:00-0500 Promise to ReturnEmmanMemorial Health System12-03-2024 12:00-0500Hourly RoundingEmmanMemorial Health System12-03-2024 12:00-0500Promise to ReturnEmmanMemorial [facility] 03-13-2024 04:08-0500Heart rate61 /minEmmanmirna [facility]12-03-2024 04:08-4972MwF0% (BldA) [Mass fraction]98 %Kai [facility]12-03-2024 04:07-0500Diastolic blood wufvznql42 mm[Hg][facility]12-03-2024 04:07-0500Mean blood zzyroqrp55 mm[Hg][facility]12-03-2024 04:07-0500Systolic blood lqefdipu24 mm[Hg]Kai [facility]12-03-2024 04:00-0500Blood Pressure LocationEmeveretteMemorial Health System12-03-2024 04:00-0500Body mnwyztveidp87.88 [degF]Kai [facility]12-03-2024 01:00-0500Blood Pressure Location [facility]12-03-2024 01:00-0500Diastolic blood mm[Hg][facility]12-03-2024 01:00-0500Heart rate67 /minEarabellanmirna [facility] 03-13-2024 01:00-0500Mean blood qhpzrays55 mm[Hg]Kai [facility]12-03-2024 01:00-0500Systolic blood mm[Hg][facility]12-[facility]-2024 00:49-0500Heart rate63 /min Kai [facility]12-03-2024 00:49-9687MtP9% (BldA) [Mass fraction]98 %Kai [facility]12-03-2024 00:49-0500Diastolic blood vfykvzhl24 mm[Hg]Kai [facility]12-03-2024 00:49-0500Mean blood hwdubbip75 mm[Hg][facility]ai [facility] Centerdante [facility]12-03-2024 00:49-0500Systolic blood ufbrvhjc62 mm[Hg]Kai [facility]12-03-2024 00:49-0500Body tqcxqotpzzo32.52 [degF]Kai [facility]12-02-2024 19:41-4175EzE8% (BldA) [Mass fraction]99 %Kai [facility]12-02-2024 19:40-0500Body aergadnziwe24.88 [degF]Kai [facility]12-02-2024 19:40-0500Mean blood nropbycs97 mm[Hg]Kai [facility]12-02-2024 16:00-0500Body ujgjiwrnwrz40.24 [degF]Kai [facility]12-02-2024 13:01-0500Body hgtozynihgc66.88 [degF]Kai [facility]12-02-2024 13:00-0500Heart rate87 /minEjosué [facility] 03-12-2024 11:53-0500Mean blood mm[Hg]Kai [facility]12-02-2024 11:53-0500Respiratory rate13 /[facility]12-02-2024 11:00-0500Mean blood mm[Hg]Kai [facility]12-02-2024 10:30-0500Respiratory rate11 /[facility]12-02-2024 07:04-0500 Respiratory rate16 /[facility]12-02-2024 05:46-0500Heart rate84 /[facility] Encounters Encounter DateEncounter TypeCare ProviderFacilityStart: 02-20-2025 End: 86-95-4658Jobjus flowsheetCorey Lalitha DO Work Phone: [facility] OBGYNStart: 02-20-2025 End: 48-00-4677Fncsah flowsheetCorey Lalitha DO Work Phone: [facility] OBGYNStart: 02-20-2025 End: 57-74-0176Bndchtzo flow sheetCorey Lalitha DO Work Phone: [facility]le OBGYNComment on above:29 weeks gestation of ([facility]); Third trimester ([facility]); Pruritus; Vasovagal episode; size inconsistent with dates ([facility])Start: 02-20-2025 End: 13-96-1351ydpleklxtmNCLIT FAZIONot AvailableStart: 02-06-2025 End: 60-20-7954Bgzxkg Jimmy THAO Work Phone: [facility]BGYNStart: 02-06-2025 End: 81-35-8248Bftgpf Jimmy THAO Work Phone: [facility]BGYNStart: 02-06-2025 End: 02-79-5240Zowljmnz flow Yi THAO Work Phone: [facility] OBGYNComment on above:Second trimester ([facility] 27 weeks gestation of ([facility])Start: 02-06-2025 End: 40-34-7877tvdxbkzvbdYUC RAMEYNot AvailableStart: 01-28-2025 End: 44-02-9138Piwzsr outpatient new 20 minutesUnicoi [facility] PA Work Phone: noMS Orr DermatologyComment on above:Melanocytic nevus of left upper extremity (Primary Dx); Melanocytic nevus, unspecified locationStart: 01-28-2025 End: 87-46-6101ewtdheryvvQGNSL NORTHEIMNot AvailableStart: 01-28-2025 End: 81-94-0953Plesoj flowsLarkin [facility] PA Work Phone: noms Amy DermatologyStart: 01-28-2025 End: 93-16-8166Vdyoqn [facility] PA Work Phone: noMS Orr DermatologyStart: 01-22-2025 End: 70-17-0345Prpebrkqp Result EncounterKristina Emeli DRIER OPERATOR HELPER Work Phone: noms External Department UnsolicitedStart: 01-22-2025 End: 46-59-1750Dgkscjyvv Result EncounterKristina Emeli DRIER OPERATOR HELPER Work Phone: noms External Department UnsolicitedStart: 01-15-2025 End: 71-35-8476Dbsjrt flowsheetKristina Emeli DRIER OPERATOR HELPER Work Phone: [facility]BGYNStart: 01-15-2025 End: 33-08-9558Wquzmu flowsheetKristina Emeli DRIER OPERATOR HELPER Work Phone: noMS [facility] OBGYNStart: 01-15-2025 End: 04-48-2202Cbunhq outpatient visit 15 minutesKristina Emeli DRIER OPERATOR HELPER Work Phone: [facility] OBGYNComment on above:24 weeks gestation of ([facility]); Second trimester ([facility]); Diabetes mellitus screening; PruritusStart: 01-15-2025 End: 78-89-1781ruvurqdfraGKAEAXLA EBERLYNot AvailableStart: 12-17-2024 End: 70-41-8903Lmllju outpatient visit 15 minutesWalter Sainz NP Work Phone: [facility] OBGYNComment on above:Second trimester ([facility]); 20 weeks gestation of ([facility]); Vasovagal episodeStart: 12-17-2024 End: 51-81-1770ggtxikanjnSROBYYVK EBERLYNot AvailableStart: 11-13-2024 End: 23-18-1103Zniyhc outpatient visit 15 minutesSunshine THAO Work Phone: [facility] OBGYNComment on above:Second trimester ([facility]); 15 weeks gestation of ([facility]); Vasovagal episode; Need for maternal serum alpha-protein (MSAFP) screening ([facility]); Screening, , for anatomic survey ([facility])Start: 11-13-2024 End: 31-02-6551oupwlopjbkWKU RAMEYNot AvailableStart: 11-05-2024 End: 12-44-2381qhtcuredocTGS RAMEYNot AvailableStart: 11-05-2024 End: 83-35-6445Xpogudtg flow Yi THAO Work Phone: [facility] OBGYNComment on above:Second trimester ([facility]); 14 weeks gestation of ([facility]); Vasovagal symptom; Screen for STD (sexually transmitted disease); Yeast infectionStart: 11-05-2024 End: 03-63-9358Uwjmpk Jimmy THAO Work Phone: [facility]BGYNStart: 11-05-2024 End: 97-58-7520Qvgvnt Jimmy THAO Work Phone: [facility]BGYNStart: 10-16-2024 End: 48-41-1034Ogozxu flowsheetCorey Lalitha DO Work Phone: [facility] BCP OBStart: 10-16-2024 End: 63-20-2312Gzuopt flowsheetCorey Lalitha DO Work Phone: [facility] OBStart: 10-16-2024 End: 88-42-5882Bxfzdhan flow sheetCorey Lalitha DO Work Phone: [facility]CP OBComment on above:First trimester ([facility]); 11 weeks gestation of ([facility]); Vasovagal episodeStart: 10-16-2024 End: 32-16-8914rnflwdoaymCAAWI FAZIONot AvailableStart: 10-08-2024 End: 28-17-9782Jgynpljgs Result EncounterCorey Lalitha DO Work Phone: [facility] External Department UnsolicitedStart: 10-08-2024 End: 06-19-9684Gpabdmjeu Result EncounterCorey Lalitha DO Work Phone: [facility] External Department UnsolicitedStart: 09-14-2024 End: 16-86-4008Wqutkumuv Result EncounterCorey Lalitha DO Work Phone: NOPK External Department UnsolicitedStart: 09-14-2024 End: 89-85-8499Bqldpgumo Result EncounterCorey Lalitha DO Work Phone: NORO External Department UnsolicitedStart: 09-14-2024 End: 37-62-3100agbvxipowbIBA Katya AvailableStart: 09-14-2024 End: 04-93-3587Yxohnk outpatient visit 5 minutesNoms Bcp Ob Lalitha NurseNOMS BCP OBComment on above:GA: 8d0qFeitd: 08-30-2024 End: 59-96-0478bfcktyzkqoASP RAMEYNot AvailableStart: 08-28-2024 End: 53-04-8795Jhhyem Jimmy THAO Work Phone: [facility] BCP OBStart: 08-28-2024 End: 06-16-7722Gfyprn Jimmy THAO Work Phone: [facility]CP OBStart: 08-28-2024 End: 89-28-6561Egchsbhei Result EncounterSunshine Caridad THAO Work Phone: noMS External Department UnsolicitedStart: 08-28-2024 End: 49-72-2448Myisjqlp Result EncounterSunshine Caridad THAO Work Phone: [facility] External Department UnsolicitedStart: 08-28-2024 End: 17-72-5819jwqzgwfaczRKH CARIDADNot AvailableStart: 08-28-2024 End: 89-99-7671Wbetrgn encounter procedureSunshine Caridad THAO Work Phone: [facility] Work Phone: Start: 08-28-2024 End: 58-06-1889Rtstuqex preventive med est patient 18-39 yrsSunshine Caridad THAO Work Phone: noms BCP OBComment on above:Well woman exam with routine gynecological exam; Missed mensesStart: 06-04-2024 End: 02-71-4048opqrpvwvrpQPQAGOSPresbyterian/St. Luke's Medical Centertart: 06-04-2024 End: 11-06-3630Yjkqsfbquk hospital visit by Radha Ba DO Work Phone: [facility] Non-Invasive CardiologyComment on above:Palpitations; Pre-syncopeStart: 03-12-2024 End: 41-84-1040cwkehkevwmEncbgpu J. PasterFacility:FTMCStart: 03-12-2024 Emergency department patient visitDO Tuan LovellFacility:FTMCStart: 03-12-2024 End: 77-98-1118IuzayinpugzLckqogok E. OfungwW[facility] Start: 05-26-2022 End: 41-74-8364jbcxnjccjmGJ MORRO DOTY .Facility:M7Zylsi: 05-12-2022 End: 98-76-6100vgumamikjxDF MORRO DOTY .Facility:M2Fiatc: 03-13-2022 End: 16-53-4626xkkrbakakxGrqqziej CommunityFacility:[facility] Hospitaltart: 03-13-2022 End: 89-98-1404nywaxhanofTISXZCMKW NO [facility] Work Phone: Start: 03-13-2022 End: 80-96-0172Qlkgcxwt ReferredPHYSICIAN NO [facility] Out[facility] Procedures DateProcedureProcedure DetailPerforming ClinicianStart: 34-49-7783Eqroj dip stick/tablet rgnt non-auto w/o micrscpCorey Lalitha DO Work Phone: Start: 30-43-6225Qocst dip stick/tablet rgnt non-auto w/o micrscpAmy Caridad PA Work Phone: Start: 45-84-4529QWK CBC WITH AUTO DIFFKristina Emeli DRIER OPERATOR HELPER Work Phone: Start: 71-01-6036Nwukv dip stick/tablet rgnt non-auto w/o micrscpKristina Emeli DRIER OPERATOR HELPER Work Phone: Start: 68-69-4637Mdpxn dip stick/tablet rgnt non-auto w/o micrscpKristina Emeli DRIER OPERATOR HELPER Work Phone: Start: 35-39-3848Zsook dip stick/tablet rgnt non-auto w/o micrscpAmy Caridad PA Work Phone: Start: 26-81-3074Dvbgp dip stick/tablet rgnt non-auto w/o micrscpAmy Caridad PA Work Phone: Start: 30-97-0842Tmpmy dip stick/tablet rgnt non-auto w/o micrscpCorey Lalitha DO Work Phone: Start: 45-54-6968KDX CBC WITH AUTO DIFFCorey Lalitha DO Work Phone: Start: 63-61-1265YW OB TRANSVAGINALCorey Lalitha DO Work Phone: Start: 32-23-8498Pooza test visual color cmprsn methsCemma Weinbergo DO Work Phone: Start: 84-85-0303CRLAHZYUJ VAGINITIS (HTRX)Sunshine THAO Work Phone: Start: 01-79-5752WJX PREG QUANT HCGAmy Caridad THAO Work Phone: Start: 54-78-8741Onydo test visual color cmprsn methsAmy Caridad THAO Work Phone: None (qualifier value)Kai Thor Plan of Treatment DateCare ActivityDetailAuthorStart: 03-06-2025 End: 97-00-7862Lboesje encounter elgkopuzd43/26/2025 9:30 AM EST Routine [facility] [address] [place], [id number] Walter Sainz, DRIER OPERATOR HELPER [address] [place] [phone] [facility] OBGYNStart: 03-06-2025 End: 79-58-7156Gmqfzksymyoj / ancillary services rdzecwocdz05/26/2025 9:00 AM EST Ancillary Procedure [facility] [address] [place] [phone] [facility] OBGYNStart: 02-20-2025 End: 30-08-3586PE for pregnancyUS OB follow up transabdominal approach Imaging Routine 29 weeks gestation of ([facility] size inconsistent with dates ([facility]) Expected: 02/20/2025, Expires: 06/20/2025[facility] Work Phone: comment on above:Expected: 02/20/2025, Expires: 06/20/2025Start: 02-20-2025 End: 38-16-4074Ycrwakz encounter procedureNOMS Krystle OBGYNComment on above: ArrivedStart: 02-06-2025 End: 58-85-6316Fgvdwxm encounter procedureNOMS Albers OBGYNComment on above: ArrivedStart: 01-31-2025 End: 62-69-9037Wmvjxcl encounter efopplplx77/23/2025 3:50 PM EDT [facility] [address] [place] [id number] Marcos Lucero, PA [address] [place] [phone] [facility]: 01-28-2025 End: 25-69-0755Vkghslg encounter qlreypxta46/20/2025 3:40 PM EDT Office Visit [facility] [address] [place] [address] Marcos Lucero, [place] [address] [place] [address] ArrivedNOMS Orr DermatologyComment on above:ArrivedStart: 01-15-2025 End: 30-06-8572Wqpp acids, totalBile acids, total Lab Routine Pruritus Expected: 01/15/2025 (Approximate), Expires: 01/15/2026[facility] HealthcareComment on above: Expected: 01/15/2025 (Approximate), Expires: 01/15/2026Start: 01-15-2025 End: 06-75-1819URV panel - Blood by Automated countCBC Lab Routine Diabetes mellitus screening Expected: 01/15/2025 (Approximate), Expires: 01/15/2026[facility] Work Phone: comment on above:Expected: 01/15/2025 (Approximate), Expires: 01/15/2026Start: 01-15-2025 End: 53-29-0706SRC W Auto Differential panel - BloodCBC and differential Lab Routine Pruritus Expected: 01/15/2025 (Approximate), Expires: 01/15/2026[facility] HealthcareComment on above:Expected: 01/15/2025 (Approximate), Expires: 01/15/2026Start: 01-15-2025 End: 34-17-0806Ixwhrla function 2000 panel - Serum or PlasmaHepatic function panel Lab Routine Pruritus Expected: 01/15/2025 (Approximate), Expires: 01/15/2026[facility] HealthcareComment on above:Expected: 01/15/2025 (Approximate), Expires: 01/15/2026Start: 01-15-2025 End: 98-73-6236Binptbbfz C virus Ab [Presence] in Serum or Plasma by Immunoassay Hepatitis C antibody Lab Routine Pruritus Expected: 01/15/2025 (Approximate), Expires: 01/15/2026[facility] HealthcareComment on above:Expected: 01/15/2025 (Approximate), Expires: 01/15/2026Start: 01-15-2025 End: 66-93-9207Fvcqggnhnxd of glucose 1 hour after glucose challenge for glucose tolerance testGlucose tolerance, 1 hour Lab Routine Diabetes mellitus screening Expected: 01/15/2025 (Approximate), Expires: 01/15/2026[facility] HealthcareComment on above:Expected: 01/15/2025 (Approximate), Expires: 01/15/2026Start: 01-15-2025 End: 16-63-0735Jzfoaaooibi [Units/volume] in Serum or PlasmaTSH Lab Routine Pruritus Expected: 01/15/2025 (Approximate), Expires: 01/15/2026[facility] Healthcare Comment on above:Expected: 01/15/2025 (Approximate), Expires: 01/15/2026Start: 01-15-2025 End: 86-93-6987Usacney encounter procedureNOMS [place] OBGYNComment on above: ArrivedStart: 12-17-2024 End: 95-32-7993Evwgyzq encounter kmxslxxme62/08/2025 9:20 AM EDT Routine NOMDiogenes BLAKEGYN [address] [place], [id number] Morro Doty DO [address] [place] [address] NOMS Krystle OBGYNStart: 12-17-2024 End: 57-24-4382Yytzxxgspixf / ancillary services qacdcebrkw70/08/2025 8:00 AM EDT Ancillary Procedure N[facility] Krystle CAMP [address] [place] [address] [place] [address] JTJZ Krystle OBGYNStart: 11-13-2024 End: 77-77-4177Ymwnx fetoprotein, maternalAlpha fetoprotein, maternal Lab Routine Need for maternal serum alpha-protein (MSAFP) screening ([facility]) Expected: 11/13/2024 (Approximate), Expires: 01/13/2025[facility] Work Phone: comment on above:Expected: 11/13/2024 (Approximate), Expires: 01/13/2025Start: 11-13-2024 End: 52-28-6586DO for pregnancyUS OB 14+ weeks anatomy scan Imaging Routine Screening, , for anatomic survey ([facility]) Expected: 11/13/2024 (Approximate), Expires: 02/13/2025[facility] HealthcareComment on above:Expected: 11/13/2024 (Approximate), Expires: 02/13/2025Start: 11-13-2024 End: 35-84-6930Vvmjlzn encounter procedureNOMS BCP OBStart: 10-16-2024 End: 09-56-8372Bmeiena encounter procedureNOMS BCP OBComment on above:Arrived Start: 47-85-2057Nzbqpdcnkd ScreenDepression ScreenBon [facility] Start: 09-14-2024 End: 95-99-9448IDE/RhABO/Rh Lab Routine Missed menses , unspecified gestational age Expected: 09/14/2024 (Approximate), Expires: 09/14/2025[facility] HealthcareComment on above:Expected: 09/14/2024 (Approximate), Expires: 09/14/2025Start: 09-14-2024 End: 07-35-9203Gyoem type and Indirect antibody screen panel - BloodType and screen Lab Routine Missed menses , unspecified gestational age Expected: 09/14/2024 (Approximate), Expires: 09/14/2025[facility] Work Phone: comment on above:Expected: 09/14/2024 (Approximate), Expires: 09/14/2025Start: 09-14-2024 End: 79-41-5924Uimxg of abuse panel - Urine by Screen methodRapid drug screen, urine Lab Routine , unspecified gestational age Encounter for supervision of normal first in first trimester Expected: 09/14/2024 (Approximate), Expires: 09/14/2025[facility] HealthcareComment on above:Expected: 09/14/2024 (Approximate), Expires: 09/14/2025Start: 08-30-2024 End: 19-60-5465pzjjaopzey52/22/2025 2:00 PM EDT Initial [facility] OB [address] [place] [address] [place] [id number] [phone] BCP OBStart: 08-30-2024 End: 87-90-1017Ggmxgwgtskad / ancillary services kvbimxddkd92/22/2025 1:30 PM EDT Ancillary Procedure [facility] OB [address] [place] [address] [place] [id number] [phone] BCP OBStart: 08-28-2024 End: 45-35-6159gZY, quantitative, pregnancyhCG, quantitative, Lab Routine Missed menses Expected: 08/28/2024 (Approximate), Expires:08/28/2025[facility] HealthcareComment on above:Expected: 08/28/2024 (Approximate), Expires: 08/28/2025Start: 08-28-2024 End: 90-86-6125FE Pelvis transvaginalUS OB transvaginal Imaging Routine Missed menses Expected: 08/28/2024, Expires: 11/28/2024[facility] HealthcareComment on above: Expected: 08/28/2024, Expires: 11/28/2024Start: 78-89-0995NOSNJ-19 Vaccine ( season)COVID-19 Vaccine ( season)[facility] Start: 91-69-4606Cgclcknjf vaccinationFlu vaccine (#1)[facility] Start: 64-72-2918Wswbrtxgc for malignant neoplasm of cervixPap smearBath Community HospitalStart: 53-31-0362ENmC/Tdap/Td vaccine (1 - Tdap)DTaP/Tdap/Td vaccine (1 - Tdap)[facility] HospitalStart: 35-40-9395Yxlrehluo B vaccine (1 of 3 - 19+ 3-dose series)Hepatitis B vaccine (1 of 3 - 19+ 3-dose series)[facility]: 50-66-0296Jecwxfics C screeningHepatitis C screenBath Community HospitalStart: 63-38-7354EQP screeningHIV screenBath Community Hospital Start: 12-34-2326YOI vaccine (1 - 3-dose series)HPV vaccine (1 - 3-dose series) [facility]art: 00-07-6256Dkovgafhk vaccine (1 of 2 - 13+ 2-dose series)Varicella vaccine (1 of 2 - 13+ 2-dose series)[facility] Bacteria identified in Urine by CultureUrine culture Microbiology Routine Missed menses Ordered: 09/14/2024[facility]:Ordered: 09/14/2024 CBC W Auto Differential panel - BloodCBC and differential Lab Routine Missed menses , unspecified gestational age Ordered: 09/14/2024[facility] Comment on above:Ordered: 09/14/2024HLAMYDIA TRACHOMATIS (GENITO/STI)CHLAMYDIA TRACHOMATIS (GENITO/STI) Lab Routine Screen for STD (sexually transmitted disease) Ordered: 11/05/2024[facility] CenterComment on above:Ordered: 11/05/2024 Cytology Cervical or vaginal smear or scraping studyPap Smear Pathology and Cytology Routine Well woman exam with routine gynecological exam Ordered: [facility] Work Phone: comment on above:Ordered: 08/28/2024 End: 32-28-6115Kjlrghgh cardiac holter monitor (3 days-14 day)[facility] HospitalComment on above:1 Occurrences starting 06/04/2024 until 06/04/2024 Hemoglobin A1c/Hemoglobin.total in BloodHemoglobin A1c Lab Routine Missed menses , unspecified gestational age Ordered: 09/14/2024[facility] Comment on above:Ordered: 09/14/2024Hepatitis B virus surface Ag [Presence] in Serum or Plasma by ImmunoassayHepatitis B surface antigen Lab Routine Missed menses , unspecified gestational age Ordered: 09/14/2024[facility] Comment on above:Ordered: 09/14/2024Hepatitis C virus Ab [Presence] in Serum or Plasma by ImmunoassayHepatitis C antibody Lab Routine Missed menses , unspecified gestational age Ordered: 09/14/2024[facility] HealthcareComment on above: Ordered: 09/14/2024HIV-1/HIV-2 antigen/antibody combination immunoassayHIV-1 and HIV-2 antibodies Lab Routine Missed menses , unspecified gestational age Ordered: 09/14/2024[facility] HealthcareComment on above:Ordered: 09/14/2024 Neisseria gonorrhoeae DNA [Presence] in Unspecified specimen by JACQUELINE with probe detectionNeisseria gonorrhea DNA probe, direct Lab Routine Screen for STD (sexually transmitted disease) Ordered: 11/05/2024[facility] HealthcareComment on above:Ordered: 11/05/2024Reagin Ab [Presence] in Serum by RPRRPR Lab Routine Missed menses , unspecified gestational age Ordered: 09/14/2024[facility] HealthcareComment on above:Ordered: 09/14/2024Rubella antibody, IgGRubella antibody, IgG Lab Routine Missed menses , unspecified gestational age Ordered: 09/14/2024[facility] HealthcareComment on above:Ordered: 09/14/2024 SURESWAB(R) ADVANCED VAGINITIS PLUS, TMASURESWAB(R) ADVANCED VAGINITIS PLUS, TMA Pathology and Cytology Routine Screen for STD (sexually transmitted disease) Yeast infection Ordered: 11/05/2024[facility] Work Phone: comment on above:Ordered: 11/05/2024 Immunizations Immunization DateImmunizationNotesCare LdkdpdafRztdhrxr40-05-5238bvdohnxwg virus vaccine, live, attenuated, for intranasal useKai [facility] Payers DatePayer CategoryPayerPolicy [id number] Coast [facility] 26-79-1265Whzb-[id number] 2.16.840.1.630240.3.57[id number] 2.16840.1.543958.3.57[id number] 2.16840.1.448687.3.57[id number] 2.16840.1.255857.3.57[id number] 2.840.1.859686.3.57[id number] 2.16840.1.502404.3.57[id number] 2.16840.1.434534.3.57[id number] 2.16840.1.092257.3.57[id number] 2.16840.1.000667.3.57[id number] 2.16840.1.532979.3.57[id number] 2.16840.1.519707.3.57[id number] 2.16840.1.610294.3.57[id number] 2.16840.1.996065.3.57[id number] 2.16.840.1.721068.3.57[id number] 2.16.840.1.476553.3.57[id number] 2.16.840.1.851681.3.579.[id number] 2.16.840.1.013860.3.579.2.[id number] 2.16.840.1.098115.3.579.2.[id number] 2.16.840.1.908350.3.579.2.46[id number] [facility] [id number] 2.16.840.1.328020.3.579.2.531 Social History DateTypeDetailFacilityStart: 01-01-2017 End: 08-81-1549Nbmrbya smoking status NHISNever smoked tobacco (finding) [facility] Hospitaltart: 22-40-1593War Assigned At [facility] HospitalTobaccDoctors Hospital Comment on above:DeniesTobacco smoking statusNo Smoking Status [facility] Start: 08-18-2020 End: 37-63-4556Wre Assigned At [facility] Hospitaltart: 06-81-9943Sacbnyf use and exposureSmokeless tobacco non-userBon [facility] HospitalStart: 12-06-1210Plwzdchzq beverage intakeLifetime non-drinker (finding) [facility]Start: 08-18-2020 End: 82-22-2434Cbezvcl of Social functionSierra Vista Regional [facility] Brainiac TV [facility] HospitalHow often to you have a drink containing alcohol?NeverBalaji Barrow Neurological Institutelester GoodThreadsrajinder [facility] HospitalStart: 51-92-1376Yhq many standard drinks containing alcohol do you have on a typical day?Not askedCarilion Roanoke Memorial HospitalUlule(I/We) worried whether (my/our) food would run out before (I/we) got money to buy more.Never trueCarilion Roanoke Memorial HospitalTabSys [facility] Start: 18-42-1369Xre assigned at birthNot on fileRiverside Doctors' Hospital WilliamsburgAwesomePiece [facility] HospitalTobacco smoking status NHISTobacco smoking consumption unknownNOOK HealthcareStart: 48-38-5137Dldudb identityIdentifies as female gender (finding)[facility] Start: 98-95-8016Ifhmet orientationHeterosexual (finding)[facility] HealthcareStart: 65-06-0319WhxqzhkimHJHG Healthcare Functional Status AvuwWhwallwoyuBvjwucNolixwmn92-44-2636Mnmqushdbi StatusTwin City Hospital12-02-2024Functional Status[facility] 03-12-2024 to 02-20-2025 Note Date & UjgbSwfgBctslglk49-66-3535 History of Present illness Narrative* Анна Hare [...] supervision of normal first in first trimester ([facility]) 09/14/2024 Vasovagal episode 10/16/2024 Resolved Ambulatory Problems Diagnosis Date Noted No Resolved Ambulatory Problems Past Medical History: Diagnosis Date Positive urine test ([facility]) HISTORY PAST MEDICAL HISTORY SOCIAL HISTORY Past Medical History: Diagnosis Date Positive urine test ([facility]) Social History Tobacco Use Smoking status: [...] nursing note reviewed. Exam conducted with a cage unloader present. Vitals: Estimated body mass index is 33.27 kg/m as calculated from the following: Height as of 08/24/23: 5' 4 . Weight as of this encounter: 193 lb 12.8 oz. BP: 112/68 Patient's last menstrual period was 06/27/2024. Assessment/Plan ICD-10-CM 1. 29 weeks gestation of ([facility]) Z3A.29 POCT urinalysis dipstick manually resulted US OB follow up transabdominal approach 2. Third trimester ([facility]) Z34.93 POCT urinalysis dipstick manually resulted 3. Pruritus L29.9 4. Vasovagal episode R55 5. size inconsistent with dates ([facility]) O26.849 US OB follow up transabdominal [...] of: Morro Doty DO documented in this encounterOzarks Medical CenterTgmrdgwxsf50-05-8005 History of Present illness Narrative* KEESHA Resendiz [...] supervision of normal first in first trimester ([facility]) 09/14/2024 Vasovagal episode 10/16/2024 Resolved Ambulatory Problems Diagnosis Date Noted No Resolved Ambulatory Problems Past Medical History: Diagnosis Date Positive urine test ([facility]) HISTORY PAST MEDICAL HISTORY SOCIAL HISTORY Past Medical History: Diagnosis Date Positive urine test ([facility]) Social History Tobacco Use Smoking status: [...] ASSESSMENT & PLAN ICD-10-CM 1. Second trimester ([facility]) Z34.92 2. 27 weeks gestation of ([facility]) Z3A.27 POCT urinalysis dipstick manually resulted Return [...] for routine OB appointment. Documented by Hayley jJ CST on behalf of: KEESHA Resendiz documented in this encounterOzarks Medical CenterRgvdstkrwf19-81-4701 History of Present illness Narrative* KEESHA Nj [...] for any new/changing lesions documented in this encounterOzarks Medical CenterPidxaujwhe47-02-8473 History of Present illness Narrative* Walter Sainz, [...] supervision of normal first in first trimester ([facility]) 09/14/2024 Vasovagal episode 10/16/2024 Resolved Ambulatory Problems Diagnosis Date Noted No Resolved Ambulatory Problems Past Medical History: Diagnosis Date Positive urine test ([facility]) HISTORY PAST MEDICAL HISTORY SOCIAL HISTORY Past Medical History: Diagnosis Date Positive urine test ([facility]) Social History Tobacco Use Smoking status: [...] nursing note reviewed. Exam conducted with a cage unloader present. Vitals: Estimated body mass index is 32.17 kg/m as calculated from the following: Height as of 08/24/23: 5' 4 . Weight as of this encounter: 187 lb 6.4 oz. BP: 124/80 Patient's last menstrual period was 06/27/2024. ASSESSMENT & PLAN ICD-10-CM 1. 24 weeks gestation of ([facility]) Z3A.24 POCT urinalysis dipstick manually resulted 2. Second trimester ([facility]) Z34.92 3. Diabetes mellitus screening Z13.1 CBC [...] of: Walter Sainz NP documented in this encounterOzarks Medical CenterXzquaglrzg75-16-5696 History of Present illness Narrative* Mary Fournier [...] supervision of normal first in first trimester ([facility]) 09/14/2024 Vasovagal episode 10/16/2024 Resolved Ambulatory Problems Diagnosis Date Noted No Resolved Ambulatory Problems Past Medical History: Diagnosis Date Positive urine test ([facility]) HISTORY PAST MEDICAL HISTORY SOCIAL HISTORY Past Medical History: Diagnosis Date Positive urine test ([facility]) Social History Tobacco Use Smoking status: [...] nursing note reviewed. Exam conducted with a cage unloader present. Vitals: Estimated body mass index is 31.07 kg/m as calculated from the following: Height as of 08/24/23: 5' 4 . Weight as of this encounter: 181 lb. BP: 118/74 Patient's last menstrual period was 06/27/2024. ASSESSMENT & PLAN ICD-10-CM 1. Second trimester ([facility]) Z34.92 POCT urinalysis dipstick manually resulted 2. 20 weeks gestation of ([facility]) Z3A.20 3. Vasovagal episode R55 Patient presents [...] of: Walter Sainz NP documented in this encounterOzarks Medical CenterZffwebzgvz20-04-0671 History of Present illness Narrative* KEESHA Resendiz [...] supervision of normal first in first trimester ([facility]) 09/14/2024 Vasovagal episode 10/16/2024 Resolved Ambulatory Problems Diagnosis Date Noted No Resolved Ambulatory Problems Past Medical History: Diagnosis Date Positive urine test ([facility]) HISTORY PAST MEDICAL HISTORY SOCIAL HISTORY Past Medical History: Diagnosis Date Positive urine test ([facility]) Social History Tobacco Use Smoking status: [...] ASSESSMENT & PLAN ICD-10-CM 1. Second trimester ([facility]) Z34.92 POCT urinalysis dipstick manually resulted 2. 15 weeks gestation of ([facility]) Z3A.15 3. Vasovagal episode R55 4. Need for maternal serum alpha-protein (MSAFP) screening ([facility]) Z36.1 Alpha fetoprotein, maternal Alpha fetoprotein, maternal [...] MSAFP/Anatomy US order to have obtained at [facility]. Orders Placed This Encounter Procedures Alpha fetoprotein, maternal POCT urinalysis dipstick manually resulted Follow Up: Patient is to return to office in 4 week for routine OB appointment. Documented by Olena Gould MA on behalf of: KEESHA Resendiz documented in this encounterOzarks Medical CenterQxxqwrtvjp06-11-5623 History of Present illness Narrative* KEESHA Resendiz [...] supervision of normal first in first trimester ([facility]) 09/14/2024 Vasovagal episode 10/16/2024 Resolved Ambulatory [...] 06/27/2024. ASSESSMENT & PLAN (Z34.92) Second trimester ([facility]) Plan: POCT urinalysis dipstick manually resulted (Z3A.14) 14 weeks gestation of ([facility]) (R55) Vasovagal symptom (Z11.3) Screen for STD [...] behalf of: KEESHA Resendiz documented in this encounterOzarks Medical CenterTnanbujvce67-25-6787 History of Present illness Narrative* Анна Hare [...] supervision of normal first in first trimester ([facility]) 09/14/2024 Vasovagal episode 10/16/2024 Resolved Ambulatory [...] nursing note reviewed. Exam conducted with a cage unloader present. Vitals: Estimated body mass index is 29.35 kg/m as calculated from the following: Height as of 08/24/23: 5' 4 . Weight as of this encounter: 171 lb. BP: 112/64 Patient's last menstrual period was 06/27/2024. ASSESSMENT & PLAN ICD-10-CM 1. First trimester ([facility]) Z34.91 POCT urinalysis dipstick manually resulted 2. 11 weeks gestation of ([facility]) Z3A.11 3. Vasovagal episode R55 New OB: [...] or undercooked meat, and stay away from [facility]. Patient has been consulted regarding any further do's and don'tsof . Patient voiced understanding and all questions and concerns were answered. Orders Placed This Encounter Procedures POCT urinalysis dipstick manually resulted Follow Up: Patient is to return in 4 weeks for routine OB appointment. Documented by Анна Hare LPN on behalf of: Morro Doty DO documented in this encounterOzarks Medical CenterHieqsvbfmc38-02-9461 History of Present illness Narrative* Olena Gould [...] weeks gestation of Nurse Note: Patient desires Wood. Advised pt to make sure to wait until 9 weeks and take labs along w/Wood to have drawn. The lab will not [...] or undercooked meat, and stay away from [facility]. Patient has also been advised to [...] by: Olena Gould MA documented in this encounterOzarks Medical CenterQkfupiabyw20-92-6145 History of Present illness Narrative* KEESHA Resendiz - 08/28/2024 10:00 AM EDT Reason for Appointment: Patient ID: Jyoti Torres is a 23 y.o. female who presents for [facility] Patient presents today for Return [...] nursing note reviewed. Exam conducted with a cage unloader present. Vitals: Estimated body mass index is [...] behalf of: KEESHA Resendiz documented in this encounterOzarks Medical CenterLzwiuslimw52-34-4983 Evaluation + Plan note Extracted from:Title:Discharge NoteAuthor:Luis SNELL, Moses GalvezDate:03/13/24 Discharge To, Anticipated II - Home with responsible caregiver Prescriptions No active prescription medications Home No active home medications With When Contact Information Mark RIZVI, IRIS Alexander Within 2 to 4 weeks Additional Instructions: Call for followup appointment Remigio RIZVI, KYLAH Esteves Within 2 to 4 [address] [facility] [place] [address]- Additional Instructions: Postural Orthostatic Tachycardia Syndrome Orthostatic Hypotension Near-Syncope, Vbxa-kg-Rvha Extracted from:Title:Consult Note- NeurologyAuthor:Hayley Nicholas RN ADate: [...] Ordered: Initial Hospital Care/Day Moderate 55 Minutes 19707 2. Postural orthostatic tachycardia syndrome [POTS] (G90.A: [...] hypotension Diagnostic Tests Pending * Cortisol 03/13/24 [facility] 12-03-2024 Hospital Discharge instructions Patient Education [...] Follow these instructions at home: Medicines Take qlsi-cpz-vifmgwz and prescription medicines only as told by your health care provider. Let your health care provider know about all prescription or shdg-iux-zgdbcjw medicines you take. These include herbs, vitamins, [...] provider. Document Revised: 10/08/2021 Document Reviewed: 10/08/2021 [employer] Patient Education 2023 [employer]. 03/13/2024 11:57:29 Orthostatic Hypotension Orthostatic Hypotension Blood [...] Follow these instructions at home: Medicines Take wucw-uoc-kwcaeqg and prescription medicines only as told by [...] provider. Document Revised: 06/11/2021 Document Reviewed: 06/11/2021 [employer] Patient Education 2023 [employer]. 03/13/2024 11:56:07 Near-Syncope, Pelu-xq-Slgi Near-Syncope Near-syncope is when you suddenly feel [...] Follow these instructions at home: Medicines Take wxom-wbt-mymudtq and prescription medicines only as told by [...] provider. Document Revised: 08/06/2021 Document Reviewed: 08/06/2021 [employer] Patient Education 2023 [employer]. Follow Up Care 03/12/2024 05:45:24 With:Jenna BA Address: [address] [facility] [facility] [place] [address] [phone] Business (1) When:03/15/2024 09:45:00 With:Anthony Flood MD, NEU Address: [address] [place] [address]- When:03/28/2024 13:40:00 Comments:Will being Hue Bentley NP at this appointment. With:Benjamin Flores MD, CAR Address: When:2 to 4 weeks Comments:Call for followup appointment [facility] 12-03-2024 NoteDischarge Summary Admission and Discharge Information Admitting Physician - Kai Mcrae MD Consulting Physician - Anthony Flood MD, MD, Jorge [facility], XXXX Admitting Diagnoses: Discharge Diagnoses 1. [...] EST, syncope, Consult and Co-manage Consult to [place] - Ordered -- 03/12/24 13:52:06 EST Physical [...] Additional Instructions: Call for followup appointment Remigio RIVZI, KYLAH Esteves Within 2 to 4 weeks [facility] [place] [address]- Additional Instructions: Patient Education Postural Orthostatic Tac (more content not included)...[facility] HospitalComment on above:Result Comment: Electronically Signed By: Moses Smith DO\.br\Date and Time Signed: 03/13/24 12:08 [id number] Note Echocardiology Procedure Exam Date/Time Accession # Ordering Echo Transthoracic 03/13/2024 10:27 EST [id number] Moses Smith DO Complete CPT code 25963 [id number] Reason for Exam (Echo Transthoracic Complete) Syncope Report [facility] [address] [place] [address] Adult Echocardiogram Report Name: JYOTI TORRES Study Date: 03/13/2024 09:56 AM BP: 96/61 mmHg Patient Location: [address] [place] [address] Bed(s) [facility] HR: 57 : 2000 Gender: Female Height: [...] Benjamin Flores MD Transcribed by: ROSE Technologist: [facility]12-03-2024 Note Consultation Note Chief Complaint [...] sensation in all 4 extremities Cerebellar exam: Psbadm-rr-dsvz reveals no ataxia. Gait is normal Assessment/Plan [...] None. Medications Inpatient ac (more content not included)...[facility] Result Comment: Electronically Signed By: Hayley Nicholas RN\.br\Date and Time Signed: 03/13/24 07:03 EST\.br\Electronically Co-Signed By: Anthony Flood MD\.br\Date and Time Co-Signed: 03/13/2409:18 EST\.br\Electronically Co- Signed By: Hayley Nicholas RN [id number] NoteHistory and Physical Chief Complaint abd pain [...] Lymph Auto: 10.6 % Low (03/12/24 06:09:00) Butts Auto: 5.7 % (03/12/24 06:09:00) Eos Auto: 0.6 % (03/12/24 06:09:00) Basophil Auto: 0.2 % (03/12/24 06:09:00) Neutro Absolute: 13.5 E9/L High (03/12/24 06:09:00) Lymph Absolute: 1.7 E9/L (03/12/24 06:09:00) Butts Absolute: 0.9 E9/L (03/12/24 06:09:00) Eos Absolute: [...] WBC: 0-5 (03/12/24 06:09:00) (more content not included)...[facility] HospitalComment on above:Result Comment: Electronically Signed By: Moses Smith DObr\Date and Time Signed: 03/12/24 12:09 ESTEvaluation noteNo assessment information available [facility] Work Phone: Evaluation note* Diagnosis Palpitations [...] (HHS-HCC) state, incidental 11 weeks gestation of ([facility]) Vasovagal episode Syncope and collapse [facility] Diagnosis Second trimester (HHS-HCC) state, incidental 14 weeks gestation of ([facility]) Vasovagal symptom Screen for STD (sexually transmitted disease) Screening examination for venereal disease Yeast infection [facility] Diagnosis Second trimester (HHS-HCC) state, incidental 15 weeks gestation of ([facility]) Vasovagal episode Syncope and collapse Need for maternal serum alpha-protein (MSAFP) screening ([facility]) Screening, , for anatomic survey ([facility]) Encounter for anatomic survey [facility]* Diagnosis Second trimester (HHS-HCC) state, incidental 20 weeks gestation of ([facility]) Vasovagal episode Syncope and collapse [facility]* Diagnosis 24 weeks gestation of (HHS-HCC) Second trimester ([facility]) state, incidental Diabetes mellitus screening Screening for diabetes mellitus Pruritus Unspecified pruritic disorder [facility]* Diagnosis Melanocytic nevus of left upper extremity- Primary Melanocytic nevus, unspecified location [facility]* Diagnosis Second trimester (HHS-HCC) state, incidental 27 weeks gestation of ([facility]) [facility]* Diagnosis 29 weeks gestation of ([facility]) Third trimester ([facility]) state, incidental Pruritus Unspecified pruritic disorder Vasovagal episode Syncope and collapse size inconsistent with dates ([facility]) [facility] Narrative No data available for this section [facility] Progress note No data available for this section [facility] Chief Complaint and Reason for Visit [...] Extended cardiac holter monitor (3 days-14 day) WI EXTERNAL ECG REC>48HR<7D REVIEW & INTERPRETATION WI EXTERNAL ECG REC>48HR<7D RECORDING WI EXTERNAL ECG REC>7D<15D RECORDING WI EXTERNAL ECG REC>7D<15D REVIEW & INTERPRETATION Jenna Ba DO [address] [place] [address] [address] Referral IDStatusReasonStart DateExpiration DateVisits RequestedVisits [id number]/24/20255/ Additional Source Comments Care Teams (unrecognized sec tion and content) Team Status: Inactive Member Role Status Dates Outreach Community Attending Provider Active PHYSICIAN NO FAMILYPrimary Care ProviderActive Team Status: Active Member Role Status Dates PHYSICIAN NO FAMILY Primary Care Provider Active Team MemberRelationshipSpecialtyStart DateEnd Date Jenna Ba DO [address] [place] [address] PCP - GeneralFamily Medicine09/29/23Team MemberRelationshipSpecialtyStart DateEnd Date Jenna Ba MD [address] [facility] [place] [address] PCP - GeneralGeneral Ajysgecj95/10/24Team MemberRelationshipSpecialtyStart Date End Date Jenna Ba MD [address] [place] [address] PCP - GeneralGeneral Vwbkvdvm38/10/24Team MemberRelationshipSpecialtyStart Date End Date Jenna Ba MD [address] [place] [facility] [place] [address] PCP - GeneralGeneral Knldlvtt24/10/24Team MemberRelationshipSpecialtyStart Date End Date Jenna Ba MD [address] [place] [facility] [place] [address] PCP - GeneralGeneral Ppudxdhb40/10/24Team MemberRelationshipSpecialtyStart Date End Date Jenna Ba MD [address] [place] [facility] [place] [address] PCP - GeneralGeneral Patebyyv02/10/24am MemberRelationshipSpecialtyStart Date End Date Jenna Ba MD [address] [place] [facility] [place] [address] PCP - GeneralGeneral Khhynqaq24/10/24am MemberRelationshipSpecialtyStart Date End Date Jenna Ba MD [address] [facility] [place] [address] PCP - GeneralGeneral Qlbrohaz38/10/24Team MemberRelationshipSpecialtyStart Date End Date Jenna Ba MD [address] [place] [facility] [place] [address] PCP - GeneralGeneral Pvuvwhjb44/10/24Team MemberRelationshipSpecialtyStart Date End Date Jenna Ba MD [address] [place] [address] PCP - GeneralGeneral Wypsboxv98/10/24Te MemberRelationshipSpecialtyStart Date End Date Jenna Ba MD [address] [place] [address] PCP - GeneralGeneral Vmdufeke31/10/24Te MemberRelationshipSpecialtyStart Date End Date Jenna Ba MD [address] [place] [address] PCP - GeneralGeneral Mmrqusju39/10/24Te MemberRelationshipSpecialtyStart Date End Date Jenna Ba MD [address] [place] [address] PCP - GeneralGeneral Kaettvxd94/10/24Te MemberRelationshipSpecialtyStart Date End Date Jenna Ba MD [address] [place] [address] PCP - GeneralPremier Healthral Oeceklqv14/10/24 Goals (unrecognized section and content) Goals may be documented in a n alternate section No data available for this section INFORMATION SOURCE (unrecogn ized section and content) DATE CREATED AUTHOR 03/14/2022 [facility] DATE CREATED AUTHOR AUTHOR'S ORGANIZ ATION 07/23/2022 [facility] DATE CREATED AUTHOR AUTHOR'S ORGANIZ ATION 03/12/2024 [facility] DATE CREATED AUTHOR AUTHOR'S ORGANIZ ATION 03/14/2024 [facility] DATE CREATED AUTHOR AUTHOR'S ORGANIZ ATION 03/16/2024 [facility] DATE CREATED AUTHOR AUTHOR'S ORGANIZ ATION 06/08/2024 [facility] DATE CREATED AUTHOR AUTHOR'S ORGANIZ ATION 02/21/2025 [facility] EPIC Reason for Visit (unrecogniz ed section and content) SpecialtyDiagnoses / ProceduresReferred By ContactReferred To ContactCardiology Diagnoses Palpitations Pre-syncope Procedures Extended cardiac holter monitor (3 days-14 day) WI EXTERNAL ECG REC>48HR<7D REVIEW & INTERPRETATION WI EXTERNAL ECG REC>48HR<7D RECORDING WI EXTERNAL ECG REC>7D<15D RECORDING WI EXTERNAL ECG REC>7D<15D REVIEW & INTERPRETATION Jenna Ba DO [address] [place] [address] [facility] [address] [place] [address] Referral IDStatusReasonStart DateExpiration DateVisits RequestedVisits [id number]/24/20255/25/298411XwqzbiKfaselruVrli Women VisitReason CommentsAmenorrheaReasonCommentsRoutine VisitReasonCommentsSkin Check FOR RECORDS [...] BE BASED ON THE PRIMARY CLINICAL RECORDS. [employer] [facility]. provides no warranty or guarantee of the accuracy or completeness of information in this document.
--- OUTSIDE RECORDS SUMMARY | 2025-04-08 20:48 | XMS_ITS | Encounter Summary ---
Author Organization [facility] Address [address] [place] [address] Care Team Providers Care Software Quality Tester Name Role Phone Emery Flood MD Primary Care Provider [phone] Encounter Details DateTypeDepartmentCare Team (Latest Contact Info)Dlcerkvygqi50/28/2025Travel Social History Tobacco UseTypesPacks/DayYears UsedDateSmoking Tobacco: Never Assessed Estimated Date of YmdcxuyzVqrskjnbCgv13/24/2026ased on UltrasoundSex and Gender InformationValueDate RecordedSex Assigned at XrwnfOcjtgp17/14/2024 1:04 PM EDT Legal EphOcebfc81/15/2023 11:49 PM EDTGender UdfifmpgQwcphb67/14/2024 1:04 PM EDTSexual OllcoschuyxBqnxtofi70/14/2024 1:04 PM EDTdocumented as of this encounter Plan of Treatment DateTypeDepartmentCare Team (Latest Contact Info)Dhiuppjfbkf28/05/2026 10:30 AM ESTRoutine [facility] [address] [address] Morro Doty DO [address] [place] [address] documented as of this encounter Visit Diagnoses Not on filedocumented in this encounter Care Teams Team MemberRelationshipSpecialtyStart DateEnd Date Emery Flood MD [address] [place] [address] PCP - GeneralGeneral Crtemdpc71/10/24documented as of this encounter
--- OUTSIDE RECORDS SUMMARY | 2025-04-08 20:48 | XMS_ITS | Encounter Summary ---
Author Organization [facility] Address [address] [place] [address] Care Team Providers Care Hogshead Wrecker Name Role Phone Emery Flood MD Primary Care Provider [phone] Encounter Details DateTypeDepartmentCare Team (Latest Contact Info)Ntxfncvktfb71/17/2025bstract [facility] [address] [place] [address] Live Hernandez MD [address] [place] [id number] Social History Tobacco UseTypesPacks/DayYears UsedDateSmoking Tobacco: Never Assessed Estimated Date of NiwfwbreSwlvwcfyIce95/24/2026ased on UltrasoundSex and Gender InformationValueDate RecordedSex Assigned at WqwpnMhgedb91/14/2024 1:04 PM EDT Legal YphJoxpzo59/15/2023 11:49 PM EDTGender TndaklizTfhrgm76/14/2024 1:04 PM EDTSexual FnlyesiqgfnNbrmaxgh52/14/2024 1:04 PM EDTdocumented as of this encounter Plan of Treatment DateTypeDepartmentCare Team (Latest Contact Info)Qkthfprzluh07/05/2026 10:30 AM ESTRoutine [facility] [address] [address] [place] [address] Morro Doty DO [address] [place] [address] documented as of this encounter Visit Diagnoses Not on filedocumented in this encounter Care Teams Team MemberRelationshipSpecialtyStart DateEnd Date Emery Flood MD [address] [place] [address] PCP - GeneralGeneral Gpqdiwdq66/10/24documented as of this encounter
--- OUTSIDE RECORDS SUMMARY | 2025-04-08 20:49 | XMS_ITS | Clinical Summary ---
Author Organization [facility] Address [address], [address] [place] [address] Care Team Providers Care Research Coordinator Name Role Phone Emery Flood DO Primary Care Provider [phone] Allergies No known active allergies Medications No known medications Active Problems ProblemNoted DateDiagnosed MjchVpqtqbs21/10/2021ystolic jfacef9308/18/2020 Resolved Problems ProblemNoted DateDiagnosed DateResolved ChhiKvjuloq25/10/202112/08/2023 Epigastric nghzgunaqh98/10/202112/08/2023 Family History Medical HistoryRelationNameCommentsHeart AttackFatherDadRelationNameStatus CommentsFatherDad Social [...] heating?Not hard at all09/29/2023 PHQ-2AnswerDate RecordedPHQ-9 Total Qjupe580Hunger Vital SignAnswerDate RecordedWithin the past 12 months, [...] steady place to sleep or slept in sumnerelter (including now)?No09/29/2023Food InsecurityAnswerDate RecordedWithin the past 12 [...] Last Filed Vital Signs Vital SignReadingTime TakenCommentsBlood Vyfnnqmp489/7603/15/2024 9:25 AM EST Xwgaf363203/15/2024 9:25 AM KAUZdwcnfagfmr84.4 ??C (97.6 ??F)03/15/2024 9:25 AM ESTRespiratory Embk436108/18/2020 12:59 PM EDTOxygen Kvkyzgcolf17%03/15/2024 9:25 AM ESTInhaled Oxygen Concentration--Nthvgd96.3 kg (174 lb 12.8 oz)03/15/2024 9:25 AM NBEWccekc640.6 cm (5' 4 )03/15/2024 9:25 AM ESTBody Mass Index30 03/15/2024 9:25 AM EST Plan of Treatment Health MaintenanceDue DateLast DoneCommentsVaricella vaccine (1 of 2 - 13+ 2- dose series)10/29/2011HIV bdtbur5410/28/2013HPV vaccine (1 - 3-dose series) 2013Hepatitis C czmmru2910/28/2016DTaP/Tdap/Td vaccine (1 - Tdap)2017 Hepatitis B vaccine (1 of 3 - 19+ 3-dose series)2017Pap smear10/29/2019 Depression Gccgwq77/Flu vaccine (#1)11/09/2024OVID-19 Vaccine ( - 2023- season)2024Hepatitis [...] MemberRelationshipSpecialtyStart DateEnd Date Emery Flood DO [address] [place], [place] [id number] [facility]09/29/23
--- OUTSIDE RECORDS SUMMARY | 2025-04-08 20:49 | XMS_ITS | Clinical Summary ---
Author Organization [facility] Address [address] [place] [address] Care Team Providers Care Analytical Lab Analyst Name Role Phone Emery Flood MD Primary Care Provider [phone] Allergies No known active allergies Medications No known medications Active Problems ProblemNoted DateDiagnosed DateVasovagal pgwrbtm0410/16/20243382Zszirbgpsf76/06/2025 Encounter for supervision of normal first in first trimester ([facility]) 09/14/2024Missed xelkhf6708/30/2024Estimated Date of DeliveryCommentsYes 05/04/2025ased on Ultrasound Encounters DateTypeDepartmentCare RrurArpuhtpxsrm89/29/2025 8:50 AM ESTRoutine [facility] [address] [place] [address] [place] [address] Sunshine Mclean PA 36 weeks gestation of ([facility]); Third trimester ([facility]); Excessive growth affecting management of , antepartum, single or unspecified fetus ([facility]); Pruritus; Vasovagal ciczugt4204/08/2025 8:30 AM ESTAncillary [place] [address] Excessive growth affecting management of , antepartum, single or unspecified fetus ([facility])04/07/20258676Qmhklt21/17/2025bstract [facility] [address] [place] [address] Live Hernandez MD 03/20/2025 10:50 AM ESTRoutine [facility] [address] [place] [address] Morro Doty, 33 weeks gestation of ([facility]); Third trimester ([facility]); Pruritus; Vasovagal episode; Excessive growth affecting management of , antepartum, single or unspecified fetus ([facility])03/20/2025amboo flowsheet [facility] [address] [place] [address] Morro Doty, 03/13/20251972Nrteir91/26/2025 9:40 AM ESTRoutine [facility] [address] [place] [address] Sunshine Mclean PA Third trimester ([facility]); 31 weeks gestation of ([facility])03/06/2025 9:00 AM ESTAncillary Procedure [facility] [address] [place] [address] 29 weeks gestation of ([facility]); size inconsistent with dates ([facility])02/27/20252062Cbakdf98/12/2025 10:50 AM ESTRoutine [facility] [address] [place] [address] Morro Doty, 29 weeks gestation of ([facility]); Third trimester ([facility]); Pruritus; Vasovagal episode; size inconsistent with dates ([facility])02/20/2025amboo flowsheet [facility] [address] [place] [address] Morro Doty, 02/13/20255269Clvgdy09/29/2025 9:20 AM EDTRoutine [facility] [address] [place] [address] Sunshine Mclean PA Second trimester ([facility]); 27 weeks gestation of ([facility])02/06/2025amboo flowsheet [facility] [address] [place] [address] [place] [address] Sunshine Mclean PA 01/30/20250103Jduosd97/20/2025 3:40 PM EDTOffice Visit [facility] [address] [place] [address] Whit Lucero PA Melanocytic nevus of left upper extremity (Primary Dx); Melanocytic nevus, unspecified /20/2025[facility] flowsheet [facility] [address] [place] [address] Whit Lucero PA 01/28/20254100Ebpyaa61/16/9200Wvtdgq63/14/2025linisync Result Encounter [facility] External Department Unsolicited Apurva Sainz NP 01/15/2025 10:30 AM EDTRoutine [facility] [address] [place] [address] [place] [address] Apurva Sainz NP 24 weeks gestation of ([facility]); Second trimester ([facility]); Diabetes mellitus screening; Twngdnle28/07/2025[facility] flowsheet [facility] [address] [place] [address] [place] [address] Apurva Sainz NP 01/08/2025Travelfrom Last 3 Months Social History Tobacco UseTypesPacks/DayYears UsedDateSmoking Tobacco: Never Assessed Estimated Date of OhmzcuytNpoqzapjRhp10/24/2026ased on UltrasoundSex and Gender InformationValueDate RecordedSex Assigned at WbbvdOfvsma42/14/2024 1:04 PM EDT Legal LyrSbmqoa44/15/2023 11:49 PM EDTGender IovdhlflVryisg52/14/2024 1:04 PM EDTSexual YdlbadigjjiEivhilou07/14/2024 1:04 PM EDT Last Filed Vital Signs Vital SignReadingTime TakenCommentsBlood Cezolvrf517/801 9:45 AM EST Pulse--Temperature--Respiratory Rate--Oxygen Saturation--Inhaled Oxygen Concentration--Wlwkcp61.4 kg (205 lb 12.8 oz)04/08/2025 9:45 AM COQGzrtgp358.6 cm (5' 4 )08/24/2023 9:07 AM EDTBody Mass Index35.33008/24/2023 9:07 AM EDT Plan of Treatment DateTypeDepartmentCare Team (Latest Contact Info)Nrnfysdsmpr11/05/2026 10:30 AM ESTRoutine [facility] [address] [place] [address] Morro Doty DO [address] [place], [place] [address] Procedures Procedure NamePriorityDate/TimeAssociated DiagnosisCommentsPOCT URINALYSIS GGCEWSLDBtzfckg86/29/2025 9:42 AM EST 36 weeks gestation of ([facility]) Third trimester ([facility]) POCT URINALYSIS LICGZNAJDizkyvz21/10/2025 10:54 AM EST 33 weeks gestation of ([facility]) Third trimester ([facility]) POCT URINALYSIS AOFKBZKUGmfunkj60/26/2025 9:14 AM EST Third trimester ([facility]) US OB FOLLOW UP TRANSABDOMINAL JIBQZFKVAkekvhs31/26/2025 9:09 AM EST 29 weeks gestation of ([facility]) size inconsistent with dates ([facility]) POCT URINALYSIS SSRSOPEVWwwqvwm91/12/2025 10:58 AM EST 29 weeks gestation of ([facility]) Third trimester ([facility]) CBC (INCLUDES DIFF/PLT)Lqlojym28/ 10:09 AM EDT Pruritus BILE ACIDS, WCJYHFbrnrto97/29/2025 10:09 AM EDT Pruritus EMOZqekjmq43/29/2025 10:09 AM EDT Pruritus HEPATIC FUNCTION SUUTIXcryyqm67/29/2025 10:09 AM EDT Pruritus HEPATITIS C GSWCOSCNNgkvheg56/29/2025 10:09 AM EDT Pruritus GLUCOSE TOLERANCE, 1 MXCHGgxcrwn79/29/2025 10:09 AM EDT Diabetes mellitus screening HESMtbmymz28/29/2025 10:09 AM EDT Diabetes mellitus screening POCT URINALYSIS CHGLITLCPutvswu77/29/2025 9:51 AM EDT 27 weeks gestation of ([facility]) [facility] BILE ACIDS FRACT IOCFxlkogw11/14/2025 11:50 AM EDT ALL HEPATITIS C NFCgaqvzm11/14/2025 11:50 AM EDT ALL CBC WITH AUTO IJWSJpavifm81/14/2025 11:50 AM EDT POCT URINALYSIS MOWDXPONHxtdtef62/07/2025 10:43 AM EDT 24 weeks gestation of ([facility]) from Last 3 Months Results * (ABNORMAL) POCT urinalysis dipstick manually resulted (04/08/2025 9:42 AM EST) Only the most recent of6 resultswithin the time period is included. ComponentValueRef RangeTest MethodAnalysis TimePerformed AtPathologist Signature Color, UAAmberClarity, UAClearGlucose, UANegativeNegative - 2000(110) ++++ mg/dL Bilirubin, UANegativeNegative - 4(70) +++ mg/dLKetones, UAPositiveNegative - 160(16) ++++ mg/dLSpec Grav, UA1.0151 - 1.03Blood, UAPositiveNegative - 50 Edin/mcLpH, UA6.05 - 9Protein, UAPositiveNegative - 2000(20) ++++ mg/dL Urobilinogen, UA1.00.2 - 12 mg/dLLeukocytes, UA3+Negative - 500+++ Tiffany/mcL Nitrite, UANegativeNegative - PositiveSpecimen (Source)Anatomical Location / LateralityCollection Method / VolumeCollection TimeReceived NppsQnehn79/29/2025 9:42 AM EST Narrative Authorizing ProviderResult TypeResult StatusAmy [facility] OF [facility]ARE TEST ENTER/EDIT ORDERABLESFinal Result * US OB follow up transabdominal approach (03/06/2025 9:09 AM EST)Anatomical RegionLateralityModalityBodyUltrasoundSpecimen (Source)Anatomical Location / LateralityCollection Method / VolumeCollection TimeReceived Time03/06/2025 11:51 AM EST Impressions 03/11/2025 7:27 AM EST Single, live intrauterine , current sonographic age of 33 weeks and 3 days, with an estimated date of delivery of April 21, 2025 (prior JENISE May 04, 2025). * ??Estimated Weight (g) by Percentile is based upon an accurate estimated age based onlast menstrual period. ?? TRANSCRIBED BY: ? ELECTRONICALLY SIGNED BY: Live Hernandez MD Narrative 03/11/2025 7:27 AM EST FINDINGS: Comparison December 17, 2024. A single, live intrauterine is present with normal cardiac rate of 134 beats per minute. Normal activity and amniotic fluid volume. Amniotic fluid index is 13 cm. ??Morphology is grossly normal. The current sonographic age is 33 weeks and 3 days, based on the following measurements: ?BPD ? 8.4 cm (33 weeks, 5 days) ?Head Circumference ?30.8 cm (34 weeks, 2 days) ?Abdominal Circumference ?29.2 cm (33 weeks, 2 days) ?Femur Length ?6.3 cm (32 weeks, 3 days) ?Presentation ? Cephalic ? Weight (g) by Percentile ??86.3 % * (prior 71.8%) These measurements result in an estimated date of delivery of April 21, 2025. ?? The current estimated weight is 2125 grams (4 pounds, 11 ounces). ?? Procedure Note Live Hernandez MD - 03/11/2025 FINDINGS: Comparison December 17, 2024. A single, live intrauterine is present with normal cardiacrate of 134 beats per minute. Normal activity and amniotic fluidvolume. Amniotic fluid index is 13 cm. Morphology is grossly normal. Thecurrent sonographic age is 33 weeks and 3 days, based on the followingmeasurements: BPD 8.4 cm (33 weeks, 5 days) Head Circumference 30.8 cm (34 weeks, 2 days) Abdominal Circumference 29.2 cm (33 weeks, 2 days) Femur Length 6.3 cm (32 weeks, 3 days) Presentation Cephalic Weight (g) by Percentile 86.3 % * (prior 71.8%) These measurements result in an estimated date of delivery of April. The current estimated weight is 2125 grams (4 pounds, 11ounces). IMPRESSION: Single, live intrauterine , current sonographic age of 33 weeksand 3 days, with an estimated date of delivery of April 21, 2025 (priorEDD May 04, 2025). * Estimated Weight (g) by Percentile is based upon an accurateestimated age based on last menstrual period. TRANSCRIBED BY: ELECTRONICALLY SIGNED BY: Live Hernandez MD Authorizing ProviderResult TypeResult StatusMorro Doyt [facility] OB US PROCEDURES Final Result * Hepatitis C antibody (02/06/2025 10:09 AM EDT)Specimen (Source)Anatomical Location / LateralityCollection Method / VolumeCollection TimeReceived Time BloodVenous blood specimen / Unknown Narrative Authorizing ProviderResult TypeResult StatusApurva Sainz [facility] BLOOD ORDERABLESFinal ResultPerforming OrganizationAddressCity/State/ZIP CodePhone Number EXTERNAL LAB * Bile acids, total (02/06/2025 10:09 AM EDT)Specimen (Source)Anatomical Location / LateralityCollection Method / VolumeCollection TimeReceived Time BloodVenous blood specimen / Unknown Narrative Authorizing ProviderResult TypeResult StatusApurva Pierreerly [facility] BLOOD ORDERABLESEdited Result - FinalPerforming OrganizationAddressCity/State/ZIP [...] Unknown Narrative Authorizing ProviderResult TypeResult StatusApurva Sainz [facility] BLOOD ORDERABLESFinal ResultPerforming OrganizationAddressCity/State/ZIP CodePhone Number EXTERNAL LAB * [facility] BILE ACIDS FRACT BLD (01/22/2025 11:50 AM EDT)ComponentValueRef RangeTest MethodAnalysis TimePerformed AtPathologist SignatureBILE ACIDS9.90.0 - 10.0 umol/LTBHComment: Performed at: ?? - [facility] [address] ??[id number] [employer] Truck Driver: Sina Ponce MD, Phone: ??[phone] Specimen (Source)Anatomical Location / LateralityCollection Method / Volume Collection TimeReceived Time01/22/2025 11:50 AM EDT1 12:00 PM EDT Narrative CLINISYFL - 01/23/2025 8:08 PM EDT Authorizing ProviderResult TypeResult StatusApurva LambNorthport Medical CenterLINISYNCHospital For Special Surgeryal ResultPerforming OrganizationAddressty/State/[facility] CodePhone Number [facility] * ALL HEPATITIS C AB (01/22/2025 11:50 AM EDT)ComponentValueRef RangeTest Method Analysis TimePerformed AtPathologist SignatureHCV ANTIBODYNon ReactiveNon ReactiveTBHComment: HCV antibody alone does not differentiate between previously resolved infection and active infection. Equivocal and Reactive HCV antibody results should be followed up with an HCV RNA test to support the diagnosis of active HCV infection. Performed at: ?? - [facility] [address] ??[id number] [employer] Truck Driver: Rene Campoverde PhD, Phone: ??[phone] Specimen (Source)Anatomical Location / LateralityCollection Method / Volume Collection TimeReceived Time01/22/2025 11:50 AM EDT1 12:00 PM EDT Narrative CLINISYNC - 01/23/2025 7:08 AM EDT Authorizing ProviderResult TypeResult StatusApurva Sainz NPCLINISYNCFinal ResultPerforming OrganizationAddressty/State/ZIP CodePhone Number [facility] * (ABNORMAL) ALL CBC WITH AUTO DIFF (01/22/2025 11:50 AM EDT)ComponentValueRef RangeTest MethodAnalysis TimePerformed AtPathologist SignatureTBH WBC11.6(H) 4.0 - 11.0 10 3/uLTBHTBH RBC3.81(L)4.20 - 5.40 10 6/uLTBHTBH HGB12.212.0 - 16.0 g/dLTBHTBH HCT35.8(L)36.0 - 48.0 %TBHTBH MCV94.081.0 - 99.0 fLTBHTBH MCH 32.026.7 - 34.0 pgTBHTBH MCHC34.129.9 - 35.2 g/dLTBHTBH RDW12.411.0 - 15.0 % TBHTBH TTS137311 - 450 10 3/uLTBHTBH MPV10.09.5 - 13.5 [...] 12:30 PM EDT Authorizing ProviderResult TypeResult StatusKrvelia Emeli NPCLINISYNCFinal ResultPerforming OrganizationAddressCity/State/ZIP CodePhone Number CLINISYNC [facility] from Last 3 Months Insurance Care Teams Team MemberRelationshipSpecialtyStart DateEnd Date Emery Flood MD [address] [place] [address] PCP - GeneralGeneral Ghmfjsun17/10/24
== END 2025-04-08 20:44 | disposition home or self-care (01) ==
LOC: LAB 20:43
PROVIDERS: PCP Family Medicine; Visit Provider Physician Assistant
DX: Z34.93 Encounter for supervision of normal pregnancy, unspecified, third trimester (principal); Z3A.36 36 weeks gestation of pregnancy
CPT/HCPCS: 87081

== ENCOUNTER 2025-04-10 15:01 | Outpatient (OUT) | payer OTHER, SELFPAY ==
--- OUTSIDE RECORDS SUMMARY | 2025-04-08 08:30 | XMS_ITS | Encounter Summary ---
Author Organization [facility] Address [address] [place] [address] Care Team Providers Care Procurement Services Manager Name Role Phone Emery Flood MD Primary Care Provider [phone] Encounter Details DateTypeDepartmentCare Team (Latest Contact Info)Rhnwvswiznt69/29/2025 8:30 AM ESTAncillary Procedure [facility] [place] [address] Excessive growth affecting management of , antepartum, single or unspecified fetus ([facility]) Social History Tobacco UseTypesPacks/DayYears UsedDateSmoking Tobacco: Never Assessed Estimated Date of JwruybsfAlwkarpnDze61/24/2026ased on UltrasoundSex and Gender InformationValueDate RecordedSex Assigned at VensoOsqtbd19/14/2024 1:04 PM EDT Legal IstErmrdd56/15/2023 11:49 PM EDTGender YozkilsfVsyofq20/14/2024 1:04 PM EDTSexual RzaksvfuptqKdknhhtz27/14/2024 1:04 PM EDTdocumented as of this encounter Plan of Treatment DateTypeDepartmentCare Team (Latest Contact Info)Bwklxsfrhcb97/05/2026 10:[address] [facility] [place] [address] [facility] [place], [place] [id number] documented as of this encounter Procedures Procedure NamePriorityDate/TimeAssociated DiagnosisCommentsUS OB FOLLOW UP TRANSABDOMINAL WMZWQUMYFjtvwta14/29/2025 9:34 AM EST Excessive growth affecting management of , antepartum, single or unspecified fetus ([facility]) documented in this encounter Results * OB follow up transabdominal approach (04/08/2025 9:34 AM EST)Anatomical RegionLateralityModalityBodyUltrasoundSpecimen (Source)Anatomical Location / LateralityCollection Method / VolumeCollection TimeReceived Time04/08/2025 5:28 PM EST Impressions 04/09/2025 9:59 AM EST 1. Single, live intrauterine , current sonographic age of 38 weeks and 6 days, with an estimated date of delivery of April 16, 2025 (prior JENISE April 21, 2025). 2. Estimated weight percentile >97% 3. ??SP 21 cm (prior SP 13 cm) * ??Estimated Weight (g) by Percentile is based upon an accurate estimated age based onlast menstrual period. ?? TRANSCRIBED BY: ? ELECTRONICALLY SIGNED BY: Live Hernandez MD Narrative 04/09/2025 9:59 AM EST FINDINGS: Comparison March 06, 2025. A single, live intrauterine is present with normal cardiac rate of 124 beats per minute. Normal activity and amniotic fluid volume. Amniotic fluid index is 21 cm. ??Morphology is grossly normal. The current sonographic age is 38 weeks and 6 days, based on the following measurements: ?BPD ? 9.5 cm (38 weeks, 4 days) ?Head Circumference ?34.3 cm (39 weeks, 4 days) ?Abdominal Circumference ?35.5 cm (39 weeks, 3 days) ?Femur Length ?7.3 cm (37 weeks, 4 days) ?Presentation ? Cephalic ?Placenta ? Weight (g) by Percentile >97% * (prior 86.3%) These measurements result in an estimated date of delivery of April 16, 2025. ??The current estimated weight is 3632 grams (8 pounds, 0 ounces). ?? Procedure Note Live Hernandez MD - 04/09/2025 FINDINGS: Comparison March 06, 2025. A single, live intrauterine is present with normal cardiacrate of 124 beats per minute. Normal activity and amniotic fluidvolume. Amniotic fluid index is 21 cm. Morphology is grossly normal. Thecurrent sonographic age is 38 weeks and 6 days, based on the followingmeasurements: BPD 9.5 cm (38 weeks, 4 days) Head Circumference 34.3 cm (39 weeks, 4 days) Abdominal Circumference 35.5 cm (39 weeks, 3 days) Femur Length 7.3 cm (37 weeks, 4 days) Presentation Cephalic Placenta Weight (g) by Percentile >97% * (prior 86.3%) These measurements result in an estimated date of delivery of April. The current estimated weight is 3632 grams (8 pounds, 0ounces). IMPRESSION: 1. Single, live intrauterine , current sonographic age of 38weeks and 6 days, with an estimated date of delivery of April 16, 2025(prior JENISE April 21, 2025). 2. Estimated weight percentile >97% 3. SP 21 cm (prior SP 13 cm) * Estimated Weight (g) by Percentile is based upon an accurateestimated age based on last menstrual period. TRANSCRIBED BY: ELECTRONICALLY SIGNED BY: Live Hernandez MD Authorizing ProviderResult TypeResult StatusCorey Lalitha SEE OB US PROCEDURES Final Result documented in this encounter Visit Diagnoses Diagnosis Excessive growth affecting management of , antepartum, single or unspecified fetus ([facility]) documented in this encounter Care Teams Team MemberRelationshipSpecialtyStart DateEnd Date Emery Flood MD [address] [place] [address] PCP - GeneralGeneral Oviarvee28/10/24documented as of this encounter
--- OUTSIDE RECORDS SUMMARY | 2025-04-08 08:50 | XMS_ITS | Encounter Summary ---
Author Organization [facility] Address [address] [place] [address] Care Team Providers Care Hand Molder Name Role Phone Emery Flood MD Primary Care Provider [phone] Reason for Visit * ReasonCommentsRoutine Visit Encounter Details DateTypeDepartmentCare Team (Latest Contact Info)Znerfmimxgk62/29/2025 8:50 AM ESTRoutine [facility] [address] [place] [phone] Sunshine Mclean PA [address] [place], [facility] 36 weeks gestation of ([facility]); Third trimester ([facility]); Excessive growth affecting management of , antepartum, single or unspecified fetus ([facility]); Pruritus; Vasovagal episode Social History Tobacco UseTypesPacks/DayYears UsedDateSmoking Tobacco: Never Assessed Estimated Date of VvgbtbmdKrnefwmiEub52/24/2026Based on UltrasoundSex and Gender InformationValueDate RecordedSex Assigned at AxgliXuzdag33/14/2024 1:04 PM EDT Legal WpqEgmyek12/15/2023 11:49 PM EDTGender RtybcnynYwprpt81/14/2024 1:04 PM EDTSexual EshlzjxnxlfLgbtovsz60/14/2024 1:04 PM EDTdocumented as of this encounter Last Filed Vital Signs Vital SignReadingTime TakenCommentsBlood Cuamqfjz766/801 9:45 AM EST Pulse--Temperature--Respiratory Rate--Oxygen Saturation--Inhaled Oxygen Concentration--Hzcqtc73.4 kg (205 lb 12.8 oz)04/08/2025 9:45 AM ESTHeight--Body Mass Index35.33008/24/2023 9:07 AM EDTdocumented in this encounter Progress Notes * KEESHA Resendiz - 04/08/2025 8:50 AM EST Reason for Appointment: Patient ID: yJoti Torres is a 24 y.o. female who presents for Routine Visit Patient presents today for Return OB appointment. MEDICATIONS No current outpatient medications ALLERGIES No Known Allergies PROBLEMS Active Ambulatory Problems Diagnosis Date Noted Missed menses 08/30/2024 Amenorrhea 09/14/2024 Encounter for supervision of normal first in first trimester ([facility]) 09/14/2024 Vasovagal episode 10/16/2024 Resolved Ambulatory Problems Diagnosis Date Noted No Resolved Ambulatory Problems Past Medical History: Diagnosis Date Positive urine test ([facility]) HISTORY PAST MEDICAL HISTORY SOCIAL HISTORY Past Medical History: Diagnosis Date Positive urine test ([facility]) Social History Tobacco Use Smoking status: Not [...] nursing note reviewed. Exam conducted with a paint roller winder present. Vitals: Estimated body mass index is 35.33 kg/m?? as calculated from the following: Height as of 08/24/23: 5' 4 . Weight as of this encounter: 205 lb 12.8 oz. BP: 128/80 Patient's last menstrual period was 06/27/2024. Assessment/Plan ICD-10-CM 1. 36 weeks gestation of ([facility]) Z3A.36 POCT urinalysis dipstick manually resulted 2. Third trimester ([facility]) Z34.93 POCT urinalysis dipstick manually resulted CULTURE, GROUP B STREP WITH SUSCEPTIBLITY CULTURE, GROUP B STREP WITH SUSCEPTIBLITY 3. Excessive growth affecting management of , antepartum, single or unspecified fetus ([facility]) O36.60X0 4. Pruritus L29.9 5. Vasovagal episode [...] Plan of Treatment DateTypeDepartmentCare Team (Latest Contact Info)Efqmalalmij37/05/2026 10:30 AM ESTRoutine [facility] [address] [place] [phone] Morro Doty, [address] [place] [address] NameTypePriorityAssociated DiagnosesOrder ScheduleCULTURE, GROUP B STREP WITH SUSCEPTIBLITYLabRoutine Third trimester ([facility]) Expected: 04/08/2025, Expires: 04/08/2026US biophysical profile w non stress testImagingRoutine 36 weeks gestation of ([facility]) Third trimester ([facility]) Excessive growth affecting management of , antepartum, single or unspecified fetus ([facility]) Expected: 04/08/2025 (Approximate), Expires: 10/07/2025documented as of this encounter Procedures Procedure NamePriorityDate/TimeAssociated DiagnosisCommentsPOCT URINALYSIS GBHEENAAZgujone27/29/2025 9:42 AM EST 36 weeks gestation of ([facility]) Third trimester ([facility]) documented in this encounter Results * (ABNORMAL) [...] 9:42 AM EST Narrative Authorizing ProviderResult TypeResult StatusEncompass B[facility] OF CARE TEST ENTER/EDIT ORDERABLESFinal Result documented in this encounter Visit Diagnoses Diagnosis 36 weeks gestation of ([facility]) Third trimester ([facility]) state, incidental Excessive growth affecting management of , antepartum, single or unspecified fetus ([facility]) Pruritus Unspecified pruritic disorder Vasovagal episode Syncope and collapse documented in this encounter Care Teams Team MemberRelationshipSpecialtyStart DateEnd Date Emery Flood MD [address] [place] [address] PCP - GeneralGeneral Nrtxlafb39/10/24documented as of this encounter
--- NOTE | 2025-04-10 15:04 | US_ITS ---
[address] [address] Patient Name: TYRELL WU MRN: [id number] date: 2000 Sex: F Assigned Patient Location: [facility] Current Patient Location: [facility] Accession/Order Number: [id number] Exam Date: 04/10/2025 15:05 Report Date: 04/10/2025 16:31 At the request of: MARY DING Procedure: US OB BPP w non-stress Ultrasound biophysical profile HISTORY: Excessive growth Adequate breathing movement, gross body movement, tone and amniotic fluid volume for total score of 8 out of 8. The amniotic fluid index is 18.3cm within normal limits. The heart rate 129 bpm. US/US OB BPP w non-stress IMPRESSION: Adequate ultrasound biophysical profile Impression dictated by: Johnnie Hinton M.D. 04/10/2025 4:31 PM Dictation Location: [facility] Electronically authenticated by: [id number] Y Date: 04/10/2025 16:31
--- OUTSIDE RECORDS SUMMARY | 2025-04-10 15:04 | XMS_ITS | Encounter Summary ---
Author Organization [facility] Address [address] [place] [address] Care Team Providers Care Control Clerk Auditing Name Role Phone Emery Flood MD Primary Care Provider [phone] Encounter Details DateTypeDepartmentCare Team (Latest Contact Info)Roelicumaey48/28/2025Travel Social History Tobacco UseTypesPacks/DayYears UsedDateSmoking Tobacco: Never Assessed Estimated Date of LxuspeonEifjoaxuMzt17/24/2026ased on UltrasoundSex and Gender InformationValueDate RecordedSex Assigned at IecudCgcjmr81/14/2024 1:04 PM EDT Legal AluSebwxx77/15/2023 11:49 PM EDTGender BjebliarUwalnv60/14/2024 1:04 PM EDTSexual NnqljxahbxfRbfdbqph36/14/2024 1:04 PM EDTdocumented as of this encounter Plan of Treatment DateTypeDepartmentCare Team (Latest Contact Info)Ilydnglaoup44/05/2026 10:30 AM ESTRoutine [facility] [address] [place] [address] Morro Doty DO [address] [place] [address] documented as of this encounter Visit Diagnoses Not on filedocumented in this encounter Care Teams Team MemberRelationshipSpecialtyStart DateEnd Date Emery Flood MD [address] [place] [address] PCP - GeneralGeneral Ftvyqqzq36/10/24documented as of this encounter
--- OUTSIDE RECORDS SUMMARY | 2025-04-10 15:04 | XMS_ITS | Clinical Summary ---
Author Organization [facility] Address [address], [address] [place] [address] Care Team Providers Care Community Service Representative Name Role Phone Emery Flood DO Primary Care Provider [phone] Allergies No known active allergies Medications No known medications Active Problems ProblemNoted DateDiagnosed AhfvClyrwtx64/10/2021ystolic mketgy1408/18/2020 Resolved Problems ProblemNoted DateDiagnosed DateResolved CqqbWuyrcyr67/10/202112/08/2023 Epigastric kdbhxyoqsn95/10/202112/08/2023 Family History Medical HistoryRelationNameCommentsHeart AttackFatherDadRelationNameStatus CommentsFatherDad Social [...] heating?Not hard at all09/29/2023 PHQ-2AnswerDate RecordedPHQ-9 Total Psskt192Hunger Vital SignAnswerDate RecordedWithin the past 12 months, [...] steady place to sleep or slept in waverlyelter (including now)?No09/29/2023Food InsecurityAnswerDate RecordedWithin the past 12 [...] Last Filed Vital Signs Vital SignReadingTime TakenCommentsBlood Urlnfwgh215/7603/15/2024 9:25 AM EST Ddvll573703/15/2024 9:25 AM YGWRkkutprcfzr03.4 ??C (97.6 ??F)03/15/2024 9:25 AM ESTRespiratory Sdlj922308/18/2020 12:59 PM EDTOxygen Kjaupbnuco68%03/15/2024 9:25 AM ESTInhaled Oxygen Concentration--Oepajm42.3 kg (174 lb 12.8 oz)03/15/2024 9:25 AM LHIIozmih291.6 cm (5' 4 )03/15/2024 9:25 AM ESTBody Mass Index30 03/15/2024 9:25 AM EST Plan of Treatment Health MaintenanceDue DateLast DoneCommentsVaricella vaccine (1 of 2 - 13+ 2- dose series)10/29/2011HIV jkdbyi4910/28/2013HPV vaccine (1 - 3-dose series) 2013Hepatitis C gvqacw2510/28/2016DTaP/Tdap/Td vaccine (1 - Tdap)2017 Hepatitis B vaccine (1 of 3 - 19+ 3-dose series)2017Pap smear10/29/2019 Depression Ahtzjq53/Flu vaccine (#1)11/09/2024OVID-19 Vaccine ( - 2023- season)2024Hepatitis [...] MemberRelationshipSpecialtyStart DateEnd Date Emery Flood DO [address] [place], [place] [id number] [facility]09/29/23
--- OUTSIDE RECORDS SUMMARY | 2025-04-10 15:04 | XMS_ITS | Encounter Summary ---
Author Organization [facility] Address [address] [place] [address] Care Team Providers Care Sole Blacker Name Role Phone Emery Flood MD Primary Care Provider [phone] Encounter Details DateTypeDepartmentCare Team (Latest Contact Info)Zpvpueyksay72/30/2025Travel Social History Tobacco UseTypesPacks/DayYears UsedDateSmoking Tobacco: Never Assessed Estimated Date of HmalpassGtkuxizpGho35/24/2026ased on UltrasoundSex and Gender InformationValueDate RecordedSex Assigned at ShxacKeftna40/14/2024 1:04 PM EDT Legal HzbOnyqiy15/15/2023 11:49 PM EDTGender HsxwlhvyEmgkha95/14/2024 1:04 PM EDTSexual XeucgrpyzbrWtdjegmz17/14/2024 1:04 PM EDTdocumented as of this encounter Plan of Treatment DateTypeDepartmentCare Team (Latest Contact Info)Pfzbexkucny90/05/2026 10:30 AM ESTRoutine [facility] [address] [place] [address] Morro Doty DO [address] [place] [address] documented as of this encounter Visit Diagnoses Not on filedocumented in this encounter Care Teams Team MemberRelationshipSpecialtyStart DateEnd Date Emery Flood MD [address] [place] [address] PCP - GeneralGeneral Euaetiac69/10/24documented as of this encounter
--- OUTSIDE RECORDS SUMMARY | 2025-04-10 15:04 | XMS_ITS | Clinical Summary ---
Author Organization [facility] Address [address] [place] [address] Care Team Providers Care Well Service Floorperson Name Role Phone Emery Flood MD Primary Care Provider [phone] Allergies No known active allergies Medications No known medications Active Problems ProblemNoted DateDiagnosed DateVasovagal yvgxubu0110/16/20248266Nxiwpmlled87/06/2025 Encounter for supervision of normal first in first trimester ([facility]) 09/14/2024Missed qsqyfm0608/30/2024Estimated Date of DeliveryCommentsYes 05/04/2025ased on Ultrasound Encounters DateTypeDepartmentCare QssnJwtysgelhzf60/30/6525Vcanxa37/29/2025 8:50 [place] [address] Sunshine Mclean PA 36 weeks gestation of ([facility]); Third trimester ([facility]); Excessive growth affecting management of , antepartum, single or unspecified fetus ([facility]); Pruritus; Vasovagal iuziwuv2004/08/2025 8:30 [place] [address] Excessive growth affecting management of , antepartum, single or unspecified fetus ([facility])04/07/20258243Mvkoxy02/17/20[place] [address] Live Hernandez MD 03/20/2025 10:50 AM ESTRoutine [facility] [address] [place] [address] Morro Doty, 33 weeks gestation of ([facility]); Third trimester ([facility]); Pruritus; Vasovagal episode; Excessive growth affecting management of , antepartum, single or unspecified fetus ([facility])03/20/2025[facility] flowsheet [facility] [address] [place] [address] Morro Doty, 03/13/20250963Ldgcup84/26/2025 9:40 AM ESTRoutine [facility] [address] [place] [address] Sunshine Mclean PA Third trimester ([facility]); 31 weeks gestation of ([facility])03/06/2025 9:00 AM ESTAncillary Procedure [facility] [address] [place] [phone] 29 weeks gestation of ([facility]); size inconsistent with dates ([facility])02/27/20251394Ctntmd91/12/2025 10:50 AM ESTRoutine [facility] [address] [place] [address] Morro Doty, 29 weeks gestation of ([facility]); Third trimester ([facility]); Pruritus; Vasovagal episode; size inconsistent with dates ([facility])02/20/2025amboo flowsheet [facility] [address] [place] [address] Morro Doty, 02/13/20256888Rninnz29/29/2025 9:20 AM EDTRoutine [facility] [address] [place] [address] Sunshine Mclean PA Second trimester ([facility]); 27 weeks gestation of ([facility])02/06/2025amb flowsheet [facility] [address] [place] [address] [place] [address] Sunshine Mclean PA 01/30/20255421Ichyiz67/20/2025 3:40 PM EDTOffice Visit [facility] [address] [place] [address] Whit Lucero PA Melanocytic nevus of left upper extremity (Primary Dx); Melanocytic nevus, unspecified mdkkzyhs46/20/2025[facility] flowsheet [facility] [address] [place] [address] Whit Lucero PA 01/28/20252298Iofhef26/16/8200Eqzyjj96/14/2025linisync Result Encounter [facility] Unsolicited Apurva Sainz NP 01/15/2025 10:30 AM EDTRoutine [facility] [address] [place] [address] [place] [address] Apurva Sainz NP 24 weeks gestation of ([facility]); Second trimester ([facility]); Diabetes mellitus screening; Tquecypb72/07/2025[facility] flowsheet [facility] [address] [place] [address] [place] [phone] Apurva Sainz NP 01/08/2025Travelfrom Last 3 Months Social History Tobacco UseTypesPacks/DayYears UsedDateSmoking Tobacco: Never Assessed Estimated Date of RokakzvpRfjbuswdLgb34/24/2026ased on UltrasoundSex and Gender InformationValueDate RecordedSex Assigned at TgkjbWjarxa28/14/2024 1:04 PM EDT Legal TujRgtmcv84/15/2023 11:49 PM EDTGender TurtvrfoRuxkgv28/14/2024 1:04 PM EDTSexual LiepazjnjipPetkofch90/14/2024 1:04 PM EDT Last Filed Vital Signs Vital SignReadingTime TakenCommentsBlood Niflwgps163/801 9:45 AM EST Pulse--Temperature--Respiratory Rate--Oxygen Saturation--Inhaled Oxygen Concentration--Poejth27.4 kg (205 lb 12.8 oz)04/08/2025 9:45 AM FKJAcapjd046.6 cm (5' 4 )08/24/2023 9:07 AM EDTBody Mass Index35.33008/24/2023 9:07 AM EDT Plan of Treatment DateTypeDepartmentCare Team (Latest Contact Info)Dceaonfezyn26/05/2026 10:30 AM ESTRoutine [facility] [address] [place] [address] Morro Doty DO [address] [place], [place] [phone] Procedures Procedure NamePriorityDate/TimeAssociated DiagnosisCommentsPOCT URINALYSIS PEXYKTVFGvecicr25/29/2025 9:42 AM EST 36 weeks gestation of ([facility]) Third trimester ([facility]) US OB FOLLOW UP TRANSABDOMINAL VKMOWNVUZvpdbbu92/29/2025 9:34 AM EST Excessive growth affecting management of , antepartum, single or unspecified fetus ([facility]) POCT URINALYSIS QEMOHXBOVgcoade03/10/2025 10:54 AM EST 33 weeks gestation of ([facility]) Third trimester ([facility]) POCT URINALYSIS RMSGZROJXahefbc40/26/2025 9:14 AM EST Third trimester ([facility]) US OB FOLLOW UP TRANSABDOMINAL TZDVYHJFPqxajdf79/26/2025 9:09 AM EST 29 weeks gestation of ([facility]) size inconsistent with dates ([facility]) POCT URINALYSIS RJBHPELQLnudnjy79/12/2025 10:58 AM EST 29 weeks gestation of ([facility]) Third trimester ([facility]) CBC (INCLUDES DIFF/PLT)Evafuyc9202/06/2025 10:09 AM EDT Pruritus BILE ACIDS, IWJEEAmsffnt22/29/2025 10:09 AM EDT Pruritus IJYMxnehag91/29/2025 10:09 AM EDT Pruritus HEPATIC FUNCTION BUYRCBfzeyvs52/29/2025 10:09 AM EDT Pruritus HEPATITIS C VBIBXCLGMbumrrx30/29/2025 10:09 AM EDT Pruritus GLUCOSE TOLERANCE, 1 UDEEVjoywmp96/29/2025 10:09 AM EDT Diabetes mellitus screening HRFAckxqmj62/29/2025 10:09 AM EDT Diabetes mellitus screening POCT URINALYSIS LIQBKIZFFbpmywy36/29/2025 9:51 AM EDT 27 weeks gestation of ([facility]) CCF BILE ACIDS FRACT UHHBztsoao87/14/2025 11:50 AM EDT ALL HEPATITIS C HOJlnoqaq24/14/2025 11:50 AM EDT ALL CBC WITH AUTO NCEPLpfgycz87/14/2025 11:50 AM EDT POCT URINALYSIS SBJCHKLIMiphoms23/07/2025 10:43 AM EDT 24 weeks gestation of ([facility]) from Last 3 Months Results * [...] Location / LateralityCollection Method / VolumeCollection TimeReceived HgruQmhrg17/29/2025 9:42 AM EST Narrative Authorizing ProviderResult TypeResult StatusAmy [facility] TEST ENTER/EDIT ORDERABLESFinal Result * US OB follow up transabdominal approach (04/08/2025 9:34 AM EST) Only the most recent of2 resultswithin the time period is included. Anatomical RegionLateralityModalityBodyUltrasoundSpecimen (Source)Anatomical Location / LateralityCollection Method / VolumeCollection TimeReceived Time 04/08/2025 5:28 PM EST Impressions 04/09/2025 9:59 AM [...] Live Hernandez MD Authorizing ProviderResult TypeResult StatusMorro Lalitha DOI OB US PROCEDURES Final Result * Hepatitis C antibody (02/06/2025 10:09 AM EDT)Specimen (Source)Anatomical Location / LateralityCollection Method / VolumeCollection TimeReceived Time BloodVenous blood specimen / Unknown Narrative Authorizing ProviderResult TypeResult StatusApurva Emeli NPLAB BLOOD ORDERABLESFinal ResultPerforming OrganizationAddressCity/State/ZIP CodePhone [...] specimen / Unknown Narrative Authorizing ProviderResult TypeResult StatusCrissya Emeli NPLAB BLOOD ORDERABLESFinal ResultPerforming OrganizationAddressCity/State/ZIP CodePhone [...] 10.0 umol/LTBHComment: Performed at: ?? - [facility] [address] ??[id number] Site Worker: Sina Ponce MD, Phone: ??[phone] Specimen (Source)Anatomical Location / LateralityCollection Method / Volume Collection TimeReceived Time01/22/2025 11:50 AM EDT1 12:00 PM EDT Narrative [facility] - 01/23/2025 8:08 PM EDT Authorizing ProviderResult TypeResult StatusApurva Sainz NPCLINISYNCFinal ResultPerforming OrganizationAddressCity/State/ZIP CodePhone Number [facility] * ALL HEPATITIS C AB (01/22/2025 11:50 AM EDT)ComponentValueRef RangeTest Method Analysis TimePerformed AtPathologist SignatureHCV ANTIBODYNon ReactiveNon ReactiveTBHComment: HCV antibody alone does not differentiate between previously resolved infection and active infection. Equivocal and Reactive HCV antibody results should be followed up with an HCV RNA test to support the diagnosis of active HCV infection. Performed at: ??CB - [facility] [address], [place], [place] ??[id number] Site Worker: Rene Campoverde PhD, Phone: ??[phone] Specimen (Source)Anatomical Location / LateralityCollection Method / Volume Collection TimeReceived Time01/22/2025 11:50 AM EDT1 12:00 PM EDT Narrative [facility] - 01/23/2025 7:08 AM EDT Authorizing ProviderResult TypeResult StatusKrvelia Sainz NPCLINISYNCFinal ResultPerforming OrganizationAddressCity/State/ZIP CodePhone Number [facility] * (ABNORMAL) ALL CBC WITH AUTO DIFF (01/22/2025 11:50 AM EDT)ComponentValueRef RangeTest MethodAnalysis TimePerformed AtPathologist SignatureTBH WBC11.6(H) 4.0 - 11.0 10 3/uLTBHTBH RBC3.81(L)4.20 - 5.40 10 6/uLTBHTBH HGB12.212.0 - 16.0 g/dLTBHTBH HCT35.8(L)36.0 - 48.0 %TBHTBH MCV94.081.0 - 99.0 fLTBHTBH MCH 32.026.7 - 34.0 pgTBHTBH MCHC34.129.9 - 35.2 g/dLTBHTBH RDW12.411.0 - 15.0 % TBHTBH RBL892435 - 450 10 3/uLTBHTBH MPV10.09.5 - 13.5 [...] 01/22/2025 12:30 PM EDT Authorizing ProviderResult TypeResult StatusKristina Emeli NPCLINISYNCFinal ResultPerforming OrganizationAddressCity/State/ZIP CodePhone Number [facility] from Last 3 Months Insurance Care Teams Team MemberRelationshipSpecialtyStart DateEnd Date Emery Flood MD [address] [place] [address] PCP - GeneralGeneral Jmyqqicy86/10/24
--- OUTSIDE RECORDS SUMMARY | 2025-04-10 15:04 | XMS_ITS | Encounter Summary ---
Author Organization [facility] Address [address] [place] [address] Care Team Providers Care Vice President Tax Name Role Phone Emery Flood MD Primary Care Provider [phone] Encounter Details DateTypeDepartmentCare Team (Latest Contact Info)Dytwgusnylg13/17/2025bstract [facility] [address] [place] [address] Live Hernandez MD [address] [place] [id number] Social History Tobacco UseTypesPacks/DayYears UsedDateSmoking Tobacco: Never Assessed Estimated Date of AuwnpyrrAhopuzzmGxo16/24/2026ased on UltrasoundSex and Gender InformationValueDate RecordedSex Assigned at WjmgeZrhprh89/14/2024 1:04 PM EDT Legal NzqRhsiwd89/15/2023 11:49 PM EDTGender WolhwitlRwqzvt40/14/2024 1:04 PM EDTSexual YukwbjpfuasDopbwnuf33/14/2024 1:04 PM EDTdocumented as of this encounter Plan of Treatment DateTypeDepartmentCare Team (Latest Contact Info)Vifktapcahy13/05/2026 10:30 AM ESTRoutine [facility] [address] [place] [address] Morro Doty DO [address] [place] [address] documented as of this encounter Visit Diagnoses Not on filedocumented in this encounter Care Teams Team MemberRelationshipSpecialtyStart DateEnd Date Emery Flood MD [address] [place] [address] PCP - GeneralGeneral Zwmovmwe74/10/24documented as of this encounter
--- OUTSIDE RECORDS SUMMARY | 2025-04-10 15:05 | XMS_ITS | CCD ---
Author Organization [facility] CliniSyar Care Team Providers Care Change Control Analyst Name Role Phone Community, Outreach Attending Provider [...] Admitting Unavaila ble Anthony Flood Consulting Unavailable MatthewsAnthony Consulting Unavailable MatthewsAnthony tristan Consulting Unavailable Anthony Flood Consulting Unavailable Anthony Flood Consulting Unavailable Anthony Flood Consulting Unavailable Anthony Flood Consulting Unavailable MatthewsAnthony Consulting Unavailable MatthewsAnthony Consulting Unavailable [facility] Cardio, XXXX Consulting Unavailable Jenna BA Primary Care Physician Irasema Franco Unavailable Unavailable Kai Mcrae Admitting Unavailable BetaarielleorBenjamin Consulting Unavailable Moses Smith Attending Unavailable Benjamin Flores Consulting Unavailable Benjamin Flores Consulting Unavailable Anthony Flood Consulting Unavailable MD Anthony Flood Unavailable MatthewsAnthony Consulting Unavailable MatthewsAnthony Consulting Unavailable MatthewsAnthony Consulting Unavailable MatthewsAnthony Consulting Unavailable Matthews, Anthony Consulting Unavailable Matthews, Anthony Consulting Unavailable Matthews, Anthony Consulting Unavailable [facility] Cardio, XXXX Consulting Unavailable MD Kai Mcrae [...] Translations: [Elevated white blood cell count, unspecified]Onset: 76-23-1515IppuytbAkzqkdeyufrdz and screening for infectious disease (3 sources)Encounter for screening for human papillomavirus (HPV); Translations: [Patient encounter status]Onset: 610568-47-7593OtcolcksIslycruwi disorders (20 sources)Irregular menstruation, unspecified; Translations: [Missed period] Onset: 314256-81-7171WpcrnfpDunghns (2 sources)Mycosis; Translations: [Candidiasis, unspecified]89-27-7000Driilrpr Nonspecific chest pain (1 source)Chest wall pain; Translations: [Other chest pain]71-80-3596Cxvythhx Other and unspecified benign neoplasm (1 source)Melanocytic nevus of left upper limb; Translations: [Melanocytic nevi of left upper limb, includingshoulder]63-32-8618UwbdmcmsPitpf and unspecified benign neoplasm (1 source)Melanocytic nevus; Translations: [Melanocytic nevi, unspecified] 20-43-1321BhcfipybQpcce circulatory disease (1 source)Low blood pressure; Translations: [Hypotension, unspecified]Onset: 83-33-4728FvtbuflzIcgyu circulatory disease (1 source)Postural orthostatic tachycardia syndrome ; Translations: [Postural orthostatic tachycardia syndrome [POTS]]Onset: 44-88-6280KgogzglnNgmyz circulatory disease (1 source)Orthostatic hypotension; Translations: [Orthostatic hypotension]Onset: 65-29-9070QfhtnwsiHbizs complications of (2 sources) size does not accord with dates; Translations: [Uterine size- date discrepancy, unspecified trimester]52-54-8498AfdhjefzXxban endocrine disorders (4 sources)Polycystic ovarian syndrome; Translations: [POLYCYSTIC OVARIAN SYNDROME]Onset: 65-44-4757GspsqykYczeo inflammatory condition of skin (4 sources)Pruritus, unspecified; Translations: [Unspecified pruritic disorder] 72-59-9154GfgxlgciMpzez nutritional; endocrine; and metabolic disorders (1 source)Body mass index 30+ - gnuzeym97-45-3393YtsqmecFhvdj nutritional; endocrine; and metabolic disorders (1 source)Simple nuihnmn27-63-9045MoanmjlRsmus nutritional; endocrine; and metabolic disorders (1 source)Obesity; Translations: [Obesity, unspecified]Onset: 08-18-2020 60-31-7792YjveslpSmauz and delivery including normal (20 sources); Translations: [Encounter for supervision of normal , unspecified, unspecified trimester]Onset: EpisodicOther screening for suspected conditions (not mental disorders or infectious disease) (10 sources)Encounter for screening for malignant neoplasm of cervix; Translations: [Alpha-fetoprotein blood test status]Onset: 34-43-1955Egljenkf Residual codes; unclassified (1 source)Gestation period, 6 weeks; Translations: [Less than 8 weeks gestation of ]31-54-1627EchwcttgRoxocowo codes; unclassified (2 sources)Gestation period, 11 weeks; Translations: [11 weeks gestation of ]33-38-6876FnvwvynvNuddxhfh codes; unclassified (2 sources)Gestation period, 14 weeks; Translations: [14 weeks gestation of ]55-92-8360KguzdpduNafnfjaz codes; unclassified (2 sources)Gestation period, 15 weeks; Translations: [15 weeks gestation of ]10-70-9563ZfrldjojCkxbptyi codes; unclassified (2 sources)Gestation period, 20 weeks; Translations: [20 weeks gestation of ]22-86-5591BxufomcaLourpkpx codes; unclassified (2 sources)Gestation period, 24 weeks; Translations: [24 weeks gestation of ]93-24-5753AcmxdquiEgaexgsi codes; unclassified (2 sources)Gestation period, 27 weeks; Translations: [27 weeks gestation of ]37-99-6571LrjivgroUsmgjudo codes; unclassified (2 sources)Gestation period, 29 weeks; Translations: [29 weeks gestation of ]80-70-8810HdkruaolWrgeotr (20 sources)Syncope and collapse; Translations: [Syncope and collapse]Onset: 25-92-1384AenutsahZsyyrhhithde (1 source)Patient encounter wxlana33-04-5651 Past or Other Problems Problem ClassificationProblemDateDocumented DateEpisodic/ChronicAbdominal pain (3 sources)Abdominal pain; Translations: [Unspecified abdominal pain]Onset: 08-18-2020 Resolved: 71-21-4959RknzwjtpSnuzy valve disorders (2 sources)Systolic murmur; Translations: [Cardiac murmur, unspecified]Onset: 268610-89-9030JfazxijyLbbry gastrointestinal disorders (2 sources)Burping; Translations: [Eructation]Onset: 08-18-2020 Resolved: 510588-57-7849Dzryfrsc Results Test NameValueInterpretationReference RangeFacilityUrinalysis macro (dipstick) panel (U)on 63-85-9256Mgiyixpei, UANegativeNegative - 4(70) +++ mg/dLNOMS HealthcareBlood, UANegativeNegative - 50 Edin/mcLNOMS HealthcareClarity, UAClear NOMS HealthcareColor, UAAmberNOMS HealthcareGlucose, UANegativeNegative - 2000(110) ++++ mg/dLNOMS HealthcareInterpretation and review of laboratory resultsAbnormalNOMS HealthcareKetones, UANegativeNegative - 160(16) ++++ mg/dL NOMS HealthcareLeukocytes, UAPositiveNegative - 500+++ Tiffany/mcLNONC Healthcare Nitrite, UANegativeNegative - PositiveNOMS HealthcarepH, UA6.05 - 9NOMS HealthcareProtein, UANegativeNegative - 2000(20) ++++ mg/dLNOMS HealthcareSpec Grav, UA1.0151 - 1.03NOMS HealthcareUrobilinogen, UA1.00.2 - 12 mg/dLNOMS HealthcareNOMS HealthcareUrinalysis macro (dipstick) panel (U)on 02-06-2025 Bilirubin, UANegativeNegative - 4(70) +++ mg/dLNOMS HealthcareBlood, UANegative Negative - 50 Edin/mcLNOMS HealthcareClarity, UAClearNOMS HealthcareColor, UA YellowNOMS HealthcareGlucose, UANegativeNegative - 2000(110) ++++ mg/dLNONC HealthcareInterpretation and review of laboratory resultsAbnormalNONC Healthcare Ketones, UANegativeNegative - 160(16) ++++ mg/dLNOMS HealthcareLeukocytes, UA3+ Negative - 500+++ Tiffany/Northwell HealthNONC HealthcareNitrite, UANegativeNegative - Positive NOMS HealthcarepH, UA7.55 - 9NOMS HealthcareProtein, UANegativeNegative - 2000(20) ++++ mg/dLNOMS HealthcareSpec Grav, UA1.0101 - 1.03NONC Healthcare Urobilinogen, UA1.00.2 - 12 mg/dLNOMS HealthcareNOMS HealthcareALL CBC WITH AUTO DIFFon 47-81-0742BJILNTIHL ABSOLUTE AUTO0.1NOMS HealthcareBasophils/100 WBC (Bld)0.4 %0.2 - 2.0 %NOMS HealthcareEosinophils/100 WBC (Bld)1.0 %0.9 - 7.0 % NOMS HealthcareErythrocyte distribution width (RBC) [Ratio]12.4 %11.0 - 15.0 % NOMS HealthcareHematocrit (Bld) [Volume fraction]35.8 %Low36.0 - 48.0 %NOMS HealthcareHemoglobin (Bld) [Mass/Vol]12.2 g/dL12.0 - 16.0 g/dLFulton State Hospital IMMATURE GRANULOCYTES ABS AUTO0.06HighFulton State HospitalImmature granulocytes/100 WBC (Bld)0.5 %0.0 - 0.5 %[facility] HospitalInterpretation and review of laboratory resultsAbnormalFulton State HospitalLYMPHOCYTES ABSOLUTE AUTO1.7NOCox Branson Lymphocytes/100 WBC (Bld)15.1 %Low20.5 - 60.0 %[facility] CenterH (RBC) [Entitic mass]32.0 pg26.7 - 34.0 pgAudrain Medical CenterHC (RBC) [Mass/Vol]34.1 g/dL29.9 - 35.2 g/dLAudrain Medical CenterV (RBC) [Entitic vol]94.0 fL81.0 - 99.0 fLFulton State HospitalMONOCYTES ABSOLUTE AUTO0.7NOCox BransonMonocytes/100 WBC (Bld)6.2 % 1.7 - 12.0 %[facility] HospitalNEUTROPHILS ABSOLUTE AUTO8.9HighFulton State Hospital Neutrophils/100 WBC (Bld)76.8 %High43.0 - 75.0 %[facility] State HospitalPlatelet mean volume (Bld) [Entitic vol]10.0 fL9.5 - 13.5 fLFulton State HospitalTB EO #0.1NOMS [facility] CampusTB TEG175TULDCox BransonTB RBC3.81LowNOFreeman Health System WBC11.6High [facility] HospitalCLINISYNCNProgress West HospitalUrinalysis macro (dipstick) panel (U)on 51-94-9890Vwageqafj, UANegativeNegative - 4(70) +++ mg/dLMOUNTAIN POINT [facility] HealthcareBlood, UANegativeNegative - 50 Edin/mcLNOMS HealthcareClarity, UAClearNONC Healthcare Color, UAYellowNONC HealthcareGlucose, UANegativeNegative - 2000(110) ++++ mg/dL [facility] HospitalInterpretation and review of laboratory resultsAbnormalMOUNTAIN POINT [facility] HealthcareKetones, UANegativeNegative - 160(16) ++++ mg/dLFulton State Hospital Leukocytes, UA1+Negative - 500+++ Tiffany/mcLNOMS HealthcareNitrite, UANegative Negative - PositiveNONC HealthcarepH, UA6.55 - 9NOMS HealthcareProtein, UA NegativeNegative - 1999(20) ++++ mg/dLNOMS HealthcareSpec Grav, UA1.0151 - 1.03 NOMS HealthcareUrobilinogen, UA2.00.2 - 12 mg/dLNOMS HealthcareNOMS HealthcareUS OB 14+ WEEKS ANATOMY SCANon 28-94-9171QH OB 14+ WEEKS ANATOMY SCANFINDINGS: A single, [...] Delivery: 05/04/25 Gestational Age as of 11/13/2024: 25k3fMqyjqdvwga macro (dipstick) panel (U)on 36-53-8623Atlebhcpu, UANegativeNegative - 4(70) +++ mg/dLNOMS HealthcareBlood, UANegativeNegative [...] HealthcareNOMS Healthcare Urinalysis macro (dipstick) panel (U)on 20-67-0002Bvlkplfzi, UANegativeNegative - 4(70) +++ mg/dLNOMS HealthcareBlood, UANegativeNegative [...] mg/dLNOMS HealthcareNOMS HealthcareUrinalysis macro (dipstick) panel (U)on 23-28-0721Sdfrsmbaf, UANegativeNegative - 4(70) +++ mg/dL NOMS HealthcareBlood, UANegativeNegative - 50 Edin/mcLNOMS HealthcareClarity, UA ClearNOMS HealthcareColor, UAYellowNOMS HealthcareGlucose, UANegativeNegative - 2000(110) ++++ mg/dLNONC HealthcareInterpretation and review of laboratory resultsNormalNOMS HealthcareKetones, UANegativeNegative - 160(16) ++++ mg/dLNOMS HealthcareLeukocytes, UANegativeNegative - 500+++ Tiffany/mcLNOMS HealthcareNitrite, UANegativeNegative - PositiveNOMS HealthcarepH, UA85 - 9NOMS HealthcareProtein, UANegativeNegative - 2000(20) ++++ mg/dLNOMS HealthcareSpec Grav, UA1.011 - 1.03 NOMS HealthcareUrobilinogen, UA0.20.2 - 12 mg/dLNONC HealthcareNONC Healthcare ALL CBC WITH AUTO DIFFon 35-84-3599VKBKBPTRA ABSOLUTE AUTO0.1NOMS Healthcare Basophils/100 WBC (Bld)0.5 %0.2 - 2.0 %NOMS HealthcareEosinophils/100 WBC (Bld) 1.3 %0.9 - 7.0 %NOMS HealthcareErythrocyte distribution width (RBC) [Ratio]11.9 %11.0 - 15.0 %NOMS HealthcareHematocrit (Bld) [Volume fraction]38.6 %36.0 - 48.0 %NOMS HealthcareHemoglobin (Bld) [Mass/Vol]12.9 g/dL12.0 - 16.0 g/dLNONC HealthcareIMMATURE GRANULOCYTES ABS AUTO0.03NONC HealthcareImmature granulocytes/100 WBC (Bld)0.2 %0.0 - 0.5 %NOM HealthcareInterpretation and review of laboratory resultsAbnormalNOMS HealthcareLYMPHOCYTES ABSOLUTE AUTO2.9 NOMS HealthcareLymphocytes/100 WBC (Bld)23.1 %20.5 - 60.0 %[facility] HospitalMCH (RBC) [Entitic mass]31.4 pg26.7 - 34.0 pgNONC HealthcareHC (RBC) [Mass/Vol] 33.4 g/dL29.9 - 35.2 g/dLNONC HealthcareMCV (RBC) [Entitic vol]93.9 fL81.0 - 99.0 fLNONC HealthcareMONOCYTES ABSOLUTE AUTO0.8NONC HealthcareMonocytes/100 WBC (Bld)6.5 %1.7 - 12.0 %NOM HealthcareNEUTROPHILS ABSOLUTE AUTO8.7HighNONC HealthcareNeutrophils/100 WBC (Bld)68.4 %43.0 - 75.0 %NOM HealthcarePlatelet mean volume (Bld) [Entitic vol]9.9 fL9.5 - 13.5 fLNONC HealthcareTBH EO #0.2NOMS HealthcareTBH FCQ169UILV [facility] CampusTB RBC4.11LowNOCox BransonTB WBC12.7High [facility] HealthcareCLINISYNCNOMS HealthcareHCG ( test) Ql (U)on 09-14-2024 Interpretation and review of laboratory resultsAbnormalNONC HealthcarePreg Test, UrPositiveNegativeNOResearch Psychiatric Center HealthcareUS OB TRANSVAGINALon 09-14-2024 [place] [address] Ultrasound Report Signed Patient: JYOTI TORRES MR#: [id number] : 2000 Acct:[id number] Age/Sex: 23 / F ADM Date: 09/14/24 Loc: US Attending Dr: Morro Doty D.O. Ordering Physician: Morro Doty D.O. Date of Service: 09/14/24 Procedure(s): US OB transvaginal Accession Number(s): [id number] cc: Morro Doty D.O.; JENNA BA [place] [id number] Patient Name: JYOTI TORRES MRN: [id number] date: 2000 Sex: F Assigned Patient Location: US Current Patient Location: US Accession/Order Number: [id number] Exam Date: 09/14/2024 11:08 Report Date: 09/14/2024 [...] Sherwood M.D. 09/14/2024 11:11 AM Dictation Location: [place] [address] Electronically authenticated by: [id number] Y Date: 09/14/2024 11:11 Dictated By: Анна Sherwood M.D. Signed By: 09/14/24 1114 DD/ 1111 TD/TT: Tmh Teacher:SOHAILadiology, Radiologist, - 09/14/2024 [place] [address] Ultrasound Report Signed Patient: JYOTI TORRES MR#: [id number] : 2000 Acct:[id number] Age/Sex: 23 / F ADM Date: 09/14/24 Loc: US Attending Dr: Morro Doty D.O. Ordering Physician: Morro Doty D.O. Date of Service: 09/14/24 Procedure(s): US OB transvaginal Accession Number(s): [id number] cc: Morro Doty D.O.; JENNA BA [place] [address] Patient Name: JYOTI TORRES MRN: [id number] date: 2000 Sex: F Assigned Patient Location: US Current Patient Location: US Accession/Order Number: [id number] Exam Date: 09/14/2024 11:08 Report Date: 09/14/2024 [...] Sherwood M.D. 09/14/2024 11:11 AM Dictation Location: [place] [address] Electronically authenticated by: [id number] Y Date: 09/14/2024 11:11 Dictated By: Анна Sherwood M.D. Signed By: 09/14/24 1114 DD/ 1111 TD/TT: Tmh Teacher: ADDISON GILBERT HOSPITALDiogenes HealthcareRadiology Study observation (narrative)[facility] HospitalUS OB TRANSVAGINALOrdered By: Radiologist Radiology on 63-03-8857XKQL Healthcare Work Phone: US OB TRANSVAGINALon [id number] OB TRANSVAGINALEXAM: US OB TRANSVAGINAL HISTORY: Dating. [...] II, MD, PHD at 31-Aug-2024 12:18:24 PM [facility] TeleradiologyNormalNot AvailableComment on above:Order Comment: US OB TRANSVAGINAL No LMP recorded (within months).RECURRENT VAGINITIS (HTRX)on 89-33-6184DEJGPVHJT TXZKPRE3BADI HealthcareATOPOBIUM VAGINAENot detectedNONC HealthcareBVAB 2,3 (BACTERIAL VAGINOSIS ASSOCIATED BACTERIA 2, 3); MOBILUNCUS RRM5JMDF Healthcare BVAB 2,3 (BACTERIAL VAGINOSIS ASSOCIATED BACTERIA 2, 3); MOBILUNCUS SPPNot detectedNONC HealthcareCANDIDA ALBICANS, PARAPSILOSIS, ZFSFZRBSVY36.742Abnormal [facility] HealthcareCANDIDA ALBICANS, PARAPSILOSIS, TROPICALISDetectedAbnormalNOMS HealthcareCANDIDA PBWJZEOL8ADIB HealthcareCANDIDA GLABRATANot detectedNOMS HealthcareCANDIDA DILZTG7WJNW HealthcareCANDIDA KRUSEINot detectedNOMS HealthcareCHLAMYDIA IVELGPGFNXG5GAHL HealthcareCHLAMYDIA TRACHOMATISNot detected NOMS HealthcareGARDNERELLA ODLUJSMYZ0APNY HealthcareGARDNERELLA VAGINALISNot detectedNOMS HealthcareInterpretation and review of laboratory resultsAbnormal NOMS HealthcareMEGASPHAERA (TYPES 1, 2)0NOMS HealthcareMEGASPHAERA (TYPES 1, 2) Not detectedNOMS HealthcareMYCOPLASMA YAWYFIHDSL8WHCN HealthcareMYCOPLASMA GENITALIUMNot detectedNOMS HealthcareNEISSERIA DXCSLQSBSQS0OGBU Healthcare NEISSERIA GONORRHOEAENot detectedNOMS HealthcareTRICHOMONAS ZQUYONCBP0YGQX HealthcareTRICHOMONAS VAGINALISNot detectedNOMS HealthcareNOMS HealthcareHCG ( test) Ql (U)on 03-70-5608Zaupiapfrtluzb and review of laboratory resultsAbnormalNOMS HealthcarePreg Test, UrPositiveNegativeNOMS HealthcareNONC HealthcareTBH PREG QUANT HCGon 20-93-6680ONN ETTDWTFNTYIM208bTL/mLNOMS HealthcareComment on above:5-50 0.2-1 WEEK 50-500 1-2 WEEKS 100-5,000 2-3 WEEKS 500-10,000 3-4 WEEKS 1,000-50,000 4-5 WEEKS 10,000-100,000 5-6 WEEKS 15,000-200,000 6-8 WEEKS 10,000-100,000 2-3 MONTHS CLINISYNCNONC HealthcareCortisolon 36-93-7116Ivaiyjwi [Mass/Vol]11.0 microgram/dLInvalid Interpretation Code6.2-19.4[facility] Comment on above:Result Comment: Please Note: The reference interval and flagging for this test is for an AM collection. If this is a PM collection please use: Cortisol PM: 2.3-11.9 Performed at: [facility] [address] [id number] PhD Gilles Morrisformed By: #### [id number] #### [facility] [address], [place] [address]NFLfa 53-23-7589Hjlci gap [Moles/Vol]8 mmol/LNormal6-16[facility] HospitalComment on above:Performed By: #### [id number] #### [facility] [address], [place] [address]Lfxgsux [Mass/Vol]8.3 mg/dLLow8.9-11.1FAdams County HospitalComment on above:Performed By: #### [id number] #### [facility] [address], [place] [address]Agzfaakd [Moles/Vol]109 mmol/ZJolkwm332-118RszdevChillicothe HospitalComment on above:Performed By: #### [id number] #### [facility] [address], [place] [address]IJ3 [Moles/Vol]27 mmol/AUqotvd92-05HuhjlgChillicothe Hospital Comment on above:Performed By: #### [id number] #### [facility] [address], [place] [address]Taalgocfat [Mass/Vol]0.5 mg/dLNormal0.5-1.3FAdams County HospitalComment on above:Performed By: #### [id number] #### [facility] [address], [place] [address]Smgvbku [Mass/Vol]104 mg/dPUbvser93-700ZyqeboChillicothe HospitalComment on above:Performed By: #### [id number] #### [facility] [address], [place] [address]Lvxbwramu [Moles/Vol]4.0 mmol/LNormal3.5-5.3FAdams County HospitalComment on above:Performed By: #### [id number] #### [facility] [address], [place] [address]Kjwjph [Moles/Vol]140 mmol/TCjtwsn338-331BkyfivChillicothe HospitalComment on above:Performed By: #### [id number] #### [facility] [address], [place] [address]Zmlh nitrogen [Mass/Vol]10 mg/dLNormal5-21[facility] HospitalComment on above:Performed By: #### [id number] #### [facility] [address], [place] [address]Orwa nitrogen/Creatinine [Mass ratio]20 No DwchrIdqdjy65-64 [facility] HospitalComment on above:Performed By: #### [id number] #### [facility] [address] [place] [address]MVM w/ Auto Diffon 47-79-7665Zrlbpwirb/100 WBC (Bld)0.8 %Normal 0.0-2.0[facility] HospitalComment on above:Performed By: #### [id number] #### [facility] [address] [place] [address]Qvpvugiyq/Leukocytes Auto (Bld) [Pure # fraction]0.1 E9/LNormal 0.0-0.2FAdams County HospitalComment on above:Performed By: #### [id number] #### [facility] [address] [place] [address]Jzdfdnpdgee (Bld) [#/Vol]0.2 E9/LNormal0.0-0.5FAdams County HospitalComment on above:Performed By: #### [id number] #### [facility] [address] [place] [address]Ytrtudavbyr/100 WBC (Bld)3.6 %Normal0.0-8.0[facility] HospitalComment on above:Performed By: #### [id number] #### [facility] [address] [place] [address]Yirjxyjzoqe distribution width (RBC) [Ratio]12.6 %Normal 10.9-14.2FAdams County HospitalComment on above:Performed By: #### [id number] #### [facility] [address] [place] [address]Qpqwtbosbs (Bld) [Volume fraction]35.7 %Tvnbrt44.0-46.0[facility] HospitalComment on above:Performed By: #### [id number] #### [facility] [address] [place] [address]Gkuqqbueqi (Bld) [Mass/Vol]12.6 g/fHXvcgqk31.0-16.0[facility] HospitalComment on above:Performed By: #### [id number] #### [facility] [address] [place] [address]Jhsbgrlnivn (Bld) [#/Vol]2.1 E9/LNormal1.0-4.0[facility] HospitalComment on above:Performed By: #### [id number] #### [facility] [address] [place] [address]Lmpiysmurqu/100 WBC (Bld)30.7 %Tnkxck59.0-50.0[facility] HospitalComment on above:Performed By: #### [id number] #### [facility] [address] [place] [address]NHI (RBC) [Entitic mass]32.9 dmHjortq16.0-34.0[facility] HospitalComment on above:Performed By: #### [id number] #### [facility] [address] [place] [address]OHBY (RBC) [Mass/Vol]35.3 g/rNUhejpz22.4-36.0[facility] HospitalComment on above:Performed By: #### [id number] #### [facility] [address] [place] [address] 134[address]VDU (RBC) [Entitic vol]93.4 qLPamgsf93.0-100.0[facility] HospitalComment on above:Performed By: #### [id number] #### [facility] [address] [place] [address]Kdihzpjfe (Bld) [#/Vol]0.6 E9/LNormal0.2-1.0[facility] HospitalComment on above:Performed By: #### [id number] #### [facility] [address] [place] [address]Pwaiykybkbj (Bld) [#/Vol]3.9 E9/LNormal2.0-7.5FAdams County HospitalComment on above:Performed By: #### [id number] #### [facility] [address] [place] [address] 28[address]Ywqndgjcvmr/100 WBC (Bld)55.7 %Glacjq70.0-75.0[facility] HospitalComment on above:Performed By: #### [id number] #### [facility] [address] [place] [address]Exdvvypu004.0 E9/HEeszfd369.0-500.0[facility] Comment on above:Performed By: #### [id number] #### [facility] [address] [place] [address]Ncbaoxyg mean volume (Bld) [Entitic vol]7.8 fLNormal6.4-10.8 [facility] HospitalComment on above:Performed By: #### [id number] #### [facility] [address] [place] [address]DNI (Bld) [#/Vol]3.8 E12/LLow4.3-5.9[facility] Comment on above:Performed By: #### [id number] #### [facility] [address] [place] [address]TZT corrected for nucl RBC Auto (Bld) [#/Vol]7.0 E9/LNormal 4.0-11.0[facility] HospitalComment on above:Performed By: #### [id number] #### [facility] [address] [place] [address]LUJUIYYPIDqdroqm By: SYSTEM SYSTEM on 28-21-2631Infpi gap [Moles/Vol]8 mmol/LNormal6 - 16 mEq/LRemisol ChemCalcium [Mass/Vol]8.3 mg/dLLow 8.9 - 11.1 mg/dLRemisol ChemChloride [Moles/Vol]109 mmol/SDjupnf008 - 111 mmol/L Remisol ChemCO2 [Moles/Vol]27 mmol/EXeamzq26 - 31 mmol/LRemisol ChemCreatinine [Mass/Vol]0.5 mg/dLNormal0.5 - 1.3 mg/dLRemisol ToyjsWKQ439 mL/min/1.73 k7Afbzgj >=59mL/min/1.73 n1Jmqqzxt ChemGlucose [Mass/Vol]104 mg/hCUazutn03 - 199 mg/dL Remisol ChemPotassium [Moles/Vol]4.0 mmol/LNormal3.5 - 5.3 mmol/LRemisol Chem Sodium [Moles/Vol]140 mmol/KOnlwxk080 - 145 mmol/LRemisol ChemTSH Qn5.22 m[IU]/L Normal0.34 - 5.60 mcIU/mLRemisol ChemUrea nitrogen [Mass/Vol]10 mg/dLNormal5 - 21 mg/dLRemisol ChemUrea nitrogen/Creatinine [Mass ratio]20 mg/hhSykomr36 - 20 Remisol ChemDischarge Note-Nursingon 26-77-4910Eokhkmmgl Note-NursingDischarge Note-Nursing JYOTI TORRES :2000 Visit Date:03/12/2024 Inpatient Discharge Instructions Your Care Team Admitting Physician - Thor RIZVI, Kai Lagos Consulting Physician - Remigio RIZVI, Anthony Flores MD, Benjamin [facility] Cardio, XXXX Reason for Your Visit abdomenal [...] with a neurologist as well as a hr director. 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 Where: [place] [address]- Follow Up with Jenna BA When: 03/15/2024 09:45 AM EST Where: [address] [facility] [place] [phone] Business (1) Follow Up with Mark RIZVI, [...] down and after you (more content not included)...NormalChillicothe HospitalHEMATOLOGYOrdered By: SYSTEM SYSTEM on 92-92-3558Odyyvnyxr/100 WBC (Bld)0.8 %Normal0.0 - 2.0 %Remisol Heme Basophils/Leukocytes Auto (Bld) [Pure # fraction]0.1 E9/LNormal0.0 - 0.2 E9/L Remisol HemeEosinophils (Bld) [#/Vol]0.2 E9/LNormal0.0 - 0.5 E9/LRemisol Heme Eosinophils/100 WBC (Bld)3.6 %Normal0.0 - 8.0 %Remisol HemeErythrocyte distribution width (RBC) [Ratio]12.6 %Rrbtmj20.9 - 14.2 %Remisol HemeHematocrit (Bld) [Volume fraction]35.7 %Zkkrpx61.0 - 46.0 %Remisol HemeHemoglobin (Bld) [Mass/Vol]12.6 g/uRTmhlvi73.0 - 16.0 gm/dLRemisol HemeLymphocytes (Bld) [#/Vol] 2.1 E9/LNormal1.0 - 4.0 E9/LRemisol HemeLymphocytes/100 WBC (Bld)30.7 %Normal 14.0 - 50.0 %Remisol HemeMCH (RBC) [Entitic mass]32.9 inPaglix15.0 - 34.0 pg Remisol HemeMCHC (RBC) [Mass/Vol]35.3 g/kKAfhrbm55.4 - 36.0 gm/dLRemisol HemeMCV (RBC) [Entitic vol]93.4 dPZfuzzn95.0 - 100.0 fLRemisol HemeMonocytes (Bld) [#/Vol]0.6 E9/LNormal0.2 - 1.0 E9/LRemisol HemeMonocytes/100 WBC (Bld)9.2 % Normal4.0 - 14.0 %Remisol HemeNeutrophils (Bld) [#/Vol]3.9 E9/LNormal2.0 - 7.5 E9/LRemisol HemeNeutrophils/100 WBC (Bld)55.7 %Ceaulf34.0 - 75.0 %Remisol Heme Sabqkswy131.0 E9/KBefyoe841.0 - 500.0 E9/LRemisol HemePlatelet mean volume (Bld) [Entitic vol]7.8 fLNormal6.4 - 10.8 fLRemisol HemeRBC (Bld) [#/Vol]3.8 E12/LLow 4.3 - 5.9 E12/LRemisol HemeWBC corrected for nucl RBC Auto (Bld) [#/Vol]7.0 E9/L Normal4.0 - 11.0 E9/LRemisol HemeInpatient Clinical Summaryon 03-13-2024 Inpatient Clinical SummaryInpatient Clinical Summary [place] [address] Clinical Summary Person Information: Name: JYOTI TORRES Age: 23 Years : 2000 Sex: Female PCP: Jenna BA DO Marital Status: Race: White Ethnicity: Non- or Language: Sammarinese Visit Id: Visit Reason: Abdominal pain; ABD PAIN /PASSED OUT Speciality: Acuity: Enc Type: Observation Med Service: Medical Arrival: 03/12/2024 05:43:15 Discharge: Dispo Type: Admitted as IP to this Hosp Address: [address] [place] [address] Provider Notes: Diagnosis: 1:Syncope; 2:Postural orthostatic tachycardia [...] Physician: Benjamin Flores MD; Anthony Flood MD; [facility] Cardio, XXXX Referring Physician: Follow up: With: Address: When: Jenna BA [address] [facility], [facility] [place] [address] [phone] [facility] (1) 03/15/2024 9:45 AM With: Address: When: Anthony Flood MD, [address] [id number] 03/28/2024 1:40 PM Comments: 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 With: Address: When: Benjamin Flores MD, CAR Within 2 to 4 weeks Comments: Call for followup appointment Patient Education Information: Postural Orthostatic Tachycardia Syndrome; Orthostatic Hypotension; Near- Syncope, Nclt-wb-IbzbPmbbisMvtfpb [facility] CenterIn[facility] Patient Summary on [id number] Patient SummaryInpatient Patient Summary [address] [address] Patient Discharge Instructions PERSON INFORMATION Name: JYOTI TORRES Date of : 2000 Current Date: 03/13/2024 12:34:22 PHYSICIANS Admitting Physician: Thor RIZVI, Kai Lagos Primary Care Physician: Jenna BA DO PCP Phone Number: [phone] Comment: Discharge Diagnosis: 1:Syncope; 2:Postural orthostatic tachycardia [...] with a neurologist as well as a hr director. Primary Care Physician to provide the following pending test results: None Follow up: With: Address: When: Jenna BA [address] [facility], [facility] [place] [address] [phone] Business (1) 03/15/2024 9:45 AM With: Address: When: Remigio RIZVI, KYLAH Esteves [place] [address] [address] [place], [place] [phone] 03/28/2024 1:40 PM Comments: Will being Hue [...] [facility] Interdisciplinary Note - Case Manageron 07-06-9311Ilhpxhslvhunjxqbh Note - Case ManagerInterdisciplinary Note - Daytime Caregiver CRM to room 327 Patient is awake, alert and oriented. Patient is from home with her spouse. He is her ride at [place]. He is present in room. Patient verified [...] darryl board updated. CRM following Dc date TBDNormalChillicothe HospitalComment on above:Result Comment: Electronically Signed By: Radha Trevino\.br\Date and Time Signed: 03/13/24 09:28 ESTTSH With T4fr Reflexon [id number] Qn5.22 m[IU]/LNormal0.34-5.60 [facility] HospitalComment on above:Performed By: #### [id number] #### [facility] [address], [place] [address]gFZBbf 90-96-3517gYXO966 mL/min/1.73 z4Hxtnkx>=59Chillicothe HospitalComment on above:Performed By: #### [id number] #### [facility] [address], [place] [address]SYGyu 57-99-0565Kvvts gap [Moles/Vol]9 mmol/LNormal6-16[facility] HospitalComment on above:Performed By: #### [id number] #### [facility] [address], [place] [address]Rzzvdwq [Mass/Vol]9.0 mg/dLNormal8.9-11.1FAdams County HospitalComment on above:Performed By: #### [id number] #### [facility] [address], [place] [address]Ypupwdep [Moles/Vol]106 mmol/WXbokrd401-452LibtqlChillicothe HospitalComment on above:Performed By: #### [id number] #### [facility] [address], [place] [address]XW6 [Moles/Vol]27 mmol/HNmmqtk20-05BnktrlChillicothe Hospital Comment on above:Performed By: #### [id number] #### [facility] [address], [place] [address]Zttsleecqv [Mass/Vol]0.6 mg/dLNormal0.5-1.3FAdams County HospitalComment on above:Performed By: #### [id number] #### [facility] [address], [place] [address]Oxpsumw [Mass/Vol]108 mg/sMVqfpkg55-446VrooswChillicothe HospitalComment on above:Performed By: #### [id number] #### [facility] [address], [place] [address]Edxbkjesx [Moles/Vol]3.9 mmol/LNormal3.5-5.3FAdams County HospitalComment on above:Performed By: #### [id number] #### [facility] [address], [place] [address]Jenzuh [Moles/Vol]138 mmol/JOnvhxn721-147EgyczcChillicothe HospitalComment on above:Performed By: #### [id number] #### [facility] [address], [place] [address]Awzj nitrogen [Mass/Vol]11 mg/dLNormal5-21[facility]othe HospitalComment on above:Performed By: #### [id number] #### [facility] [address], [place] [address]Bkaq nitrogen/Creatinine [Mass ratio]18 No DobfrJmenmy36-15 [facility] HospitalComment on above:Performed By: #### [id number] #### [facility] [address], [place] [address]THJ w/ Auto Diffon 76-55-3682Newdqadpt/100 WBC (Bld)0.2 %Normal 0.0-2.0[facility]icothe HospitalComment on above:Performed By: #### [id number] #### [facility] [address] [place] [address]Xpkhwqnmx/Leukocytes Auto (Bld) [Pure # fraction]0.0 E9/LNormal 0.0-0.2FAdams County HospitalComment on above:Performed By: #### [id number] #### [facility] [address] [place] [address]Ltvrabyzbdk (Bld) [#/Vol]0.1 E9/LNormal0.0-0.5FAdams County HospitalComment on above:Performed By: #### [id number] #### [facility] [address] [place] [address]Fyepkshjdto/100 WBC (Bld)0.6 %Normal0.0-8.0[facility]othe HospitalComment on above:Performed By: #### [id number] #### [facility] [address] [place] [address]Msjosxtlhts distribution width (RBC) [Ratio]12.5 %Normal 10.9-14.2FAdams County HospitalComment on above:Performed By: #### [id number] #### [facility] [address] [place] [address]Fpkwjwdnzj (Bld) [Volume fraction]40.5 %Ttrvle66.0-46.0[facility] HospitalComment on above:Performed By: #### [id number] #### [facility] [address] [place] [address]Mgygunozpq (Bld) [Mass/Vol]13.7 g/fQGlgpks82.0-16.0[facility] HospitalComment on above:Performed By: #### [id number] #### [facility] [address] [place] [address]Iaxwwilfneg (Bld) [#/Vol]1.7 E9/LNormal1.0-4.0[facility]othe HospitalComment on above:Performed By: #### [id number] #### [facility] [address] [place] [address]Dxolsjotmuz/100 WBC (Bld)10.6 %Low14.0-50.0[facility] HospitalComment on above:Performed By: #### [id number] #### [facility] [address] [place] [address]PAM (RBC) [Entitic mass]31.4 bgJmfkam77.0-34.0[facility] HospitalComment on above:Performed By: #### [id number] #### [facility] [address] [place] [address]YTKV (RBC) [Mass/Vol]33.8 g/cAPrcorp69.4-36.0[facility] HospitalComment on above:Performed By: #### [id number] #### [facility] [address] [place] [address]SIK (RBC) [Entitic vol]92.9 fLOdnwzw03.0-100.0[facility] HospitalComment on above:Performed By: #### [id number] #### [facility] [address] [place] [address]Gesekstpj (Bld) [#/Vol]0.9 E9/LNormal0.2-1.0[facility] HospitalComment on above:Performed By: #### [id number] #### [facility] [address] [place] [address]Neyqrsxricb (Bld) [#/Vol]13.5 E9/LHigh2.0-7.5FAdams County HospitalComment on above:Performed By: #### [id number] #### [facility] [address] [place] [address] 24[address]Lfluvyavyqg/100 WBC (Bld)82.9 %High36.0-75.0[facility] HospitalComment on above:Performed By: #### [id number] #### [facility] [address] [place] [address]Siibhrbw723.0 E9/KXuxbzp616.0-500.0[facility] Comment on above:Performed By: #### [id number] #### [facility] [address] [place] [address]Acuhooir mean volume (Bld) [Entitic vol]7.6 fLNormal6.4-10.8 [facility] HospitalComment on above:Performed By: #### [id number] #### [facility] [address] [place] [address]TXS (Bld) [#/Vol]4.4 E12/LNormal4.3-5.9[facility] HospitalComment on above:Performed By: #### [id number] #### [facility] [address] [place] [address]BCI corrected for nucl RBC Auto (Bld) [#/Vol]16.3 E9/LHigh 4.0-11.0[facility] HospitalComment on above:Performed By: #### [id number] #### [facility] [address] [place] [address]XODXZCRILBdwxlox By: SYSTEM SYSTEM on 10-57-0868Fzrmyye [Mass/Vol]4.1 g/dLNormal3.3 - 5.0 gm/dLRemisol ChemAlbumin/Globulin [Mass ratio] 1.5 {ratio}Normal1.1 - 2.2Remisol ChemALP [Catalytic activity/Vol]38 [iU]/d Mptdeg72 - 98 Int._Unit/LRemisol ChemALT No additional P-5'-P [Catalytic activity/Vol]14 [iU]/dNormal6 - 46 Int._Unit/LRemisol ChemAnion gap [Moles/Vol]9 mmol/LNormal6 - 16 mEq/LRemisol ChemAST [Catalytic activity/Vol]16 [iU]/dNormal 5 - 43 Int._Unit/LRemisol ChemBilirubin [Mass/Vol]0.7 mg/dLNormal0.0 - 1.1 mg/dL Remisol ChemBilirubin.direct [Mass/Vol]0.1 mg/dLNormal0.0 - 0.4 mg/dLRemisol ChemBilirubin.indirect [Mass or moles/Vol]0.6 mg/dLNormal0.1 - 0.9 mg/dLRemisol ChemCalcium [Mass/Vol]9.0 mg/dLNormal8.9 - 11.1 mg/dLRemisol ChemChloride [Moles/Vol]106 mmol/RHwyejw511 - 111 mmol/LRemisol ChemCO2 [Moles/Vol]27 mmol/L Vrzsny46 - 31 mmol/LRemisol ChemCreatinine [Mass/Vol]0.6 mg/dLNormal0.5 - 1.3 mg/dLRemisol RidupLWE418 mL/min/1.73 l0Roiats>=59mL/min/1.73 o9Aztwgsa Chem Globulin (S) [Mass/Vol]2.8 g/dLNormal1.4 - 4.0 gm/dLRemisol ChemGlucose [Mass/Vol]108 mg/uUFygfjj82 - 199 mg/dLRemisol ChemLipase [Catalytic activity/Vol]19 U/VZxsuiy93 - 58 unit/LRemisol ChemPotassium [Moles/Vol]3.9 mmol/LNormal3.5 - 5.3 mmol/LRemisol ChemProtein [Mass/Vol]6.9 g/dLNormal6.0 - 7.8 gm/dLRemisol ChemSodium [Moles/Vol]138 mmol/CRkzfpb487 - 145 mmol/LRemisol ChemTroponin HSpg/mLLow10.10 - 27.10 [...] - 21 mg/dLRemisol ChemUrea nitrogen/Creatinine [Mass ratio]18 mg/twThnouj51 - 20Remisol ChemCT Abdomen/Pelvis w/ Contraston 12-76-3759EK Abdomen/Pelvis w/ ContrastExam Date/Time: 03/12/2024 06:49 EST [...] amount in ml's: 100 Rectal Contrast Given? NoNormalChillicothe [facility] Clinical Summaryon [id number] Clinical SummaryED Clinical Summary [address] [address] ED Clinical Summary Person Information Name: JYOTI TORRES Sara/[facility] Age: 23 Years : 2000 Sex: Female Language: Sammarinese PCP: Jenna BA DO Marital Status: Visit Id: Visit Reason: Abdominal pain; ABD PAIN /PASSED OUT Speciality: Acuity: 3 Enc Type: Observation Med Service: Medical Arrival: 03/12/2024 05:43:15 Discharge: LOS: 000 07:16 Checkin: 03/12/2024 05:43:15 Checkout: 03/12/2024 12:59:23 Dispo Type: Admitted as IP to this [facility] EVENTS: Event Name Event Status Request Date/Time [...] 03/12/2024 12:07:26 Lab Request 03/12/2024 12:07:26 ADDRESS: [address] [place] [id number] [facility] DOC NOTES: Addendum by Earl Foote DO on March 12, 2024 10:27:34 EST MEDICAL INFORMATION: Prescriptions Given: Medications to Continue with No Changes Other Medications ethinyl estradiol-levonorgestrel (Balcoltra) By Mouth every day. PATIENT EDUCATION INFORMATION: Instructions: Follow up: DIAGNOSIS: 1:Syncope; 2:Postural orthostatic tachycardia syndrome [POTS]; 3:Orthostatic syncope; 4:Abdominal pain, acute; 5:Hypotension; 6:LeukocytosisNormalFisher Manchester Medical CenterED Note-Physicianon [id number] Note-PhysicianED Note-Physician Basic Information Time Seen: Tuan [...] of Problems Differential Diagnosis: [] [facility] Data External documents reviewed: [] My [...] Lymph Auto: 10.6 % Low (03/12/24 06:09:00) Mclean Auto: 5.7 % (03/12/24 06:09:00) Eos Auto: 0.6 % (03/12/24 06:09:00) Basophil Auto: 0.2 % (03/12/24 06:09:00) Neutro Absolute: 13.5 E9/L High (03/12/24 06:09:00) Lymph Absolute: 1.7 E9/L (03/12/24 06:09:00) Mclean Absolute: 0.9 E9/L (03/12/24 06:09:00) Eos Absolute: 0.1 E9/L (03/12/24 06:09:00) Basophil Absolute: 0 E9/L (03/12/24 06:09:00) Gl (more content not included)...[facility] CenterComment on above:Result Comment: Electronically Signed By: Earl [...] of Problems Differential Diagnosis: [] [facility] Data External documents reviewed: [] My [...] Lymph Auto: 10.6 % Low (03/12/24 06:09:00) Mclean Auto: 5.7 % (03/12/24 06:09:00) Eos Auto: 0.6 % (03/12/24 06:09:00) Basophil Auto: 0.2 % (03/12/24 06:09:00) Neutro Absolute: 13.5 E9/L High (03/12/24 06:09:00) Lymph Absolute: 1.7 E9/L (03/12/24 06:09:00) Mclean Absolute: 0.9 E9/L (03/12/24 06:09:00) Eos Absolute: 0.1 E9/L (03/12/24 06:09:00) Basophil Absolute: 0 E9/L (03/12/24 06:09:00) Gl (more content not included)...[facility] CenterComment on above:Result Comment: Electronically Signed By: Tuan Lovell DO\.br\Date and Time Signed: 03/12/24 06:46 ESTED Patient Education Noteon [id number] Patient Education NoteED [facility]NoC[facility] Patient Summaryon [id number] Patient SummaryED Patient Summary [place] [id number] Patient Discharge Instructions Person Information Name: JYOTI TORRES Age: 23 Years Arrival Date: 03/12/2024 05:43:15 Discharge Diagnosis: 1:Syncope; 2:Postural orthostatic tachycardia syndrome [POTS]; 3:Orthostatic syncope; 4:Abdominal pain, acute; 5:Hypotension; 6:Leukocytosis Primary Care Physician: Jenna BA DO Provider Information Primary Provider: Tuan Lovell DO Advanced Assistant Professor Sculpture:None The exam and treatment you received in the Emergency Department were for an urgent problem and are not intended as complete care. It is important that you follow up with a doctor, nurse practitioner,or physician???s dental front office assistant for ongoing care. If your symptoms [...] opioids can be used to help relieve pxwpvgyz-wh-qmlfne pain and are often prescribed following a [...] be struggling with addiction, tell your health child caregiver private home and askfor guidance or call [facility]???S National He (more content not included)...[facility] Medical CenterExtra Blueon 76-54-3657Hgsu Collected PlasmaYesInvalid Interpretation [facility] CenterComment on above:Performed By: #### [id number] #### [facility] [address], [place] [address]ASEXHGLYAZLigiwaq By: SYSTEM SYSTEM on 50-44-4536Lfprwlute/100 WBC (Bld)0.2 %Normal0.0 - 2.0 %Remisol HemeBasophils/Leukocytes Auto (Bld) [Pure # fraction]0.0 E9/LNormal0.0 - 0.2 E9/LRemisol HemeEosinophils (Bld) [#/Vol]0.1 E9/LNormal0.0 - 0.5 E9/LRemisol HemeEosinophils/100 WBC (Bld)0.6 %Normal0.0 - 8.0 %Remisol HemeErythrocyte distribution width (RBC) [Ratio]12.5 %Inebsh10.9 - 14.2 %Remisol HemeHematocrit (Bld) [Volume fraction]40.5 %Oalnfm55.0 - 46.0 % Remisol HemeHemoglobin (Bld) [Mass/Vol]13.7 g/iRAqvzco54.0 - 16.0 gm/dLRemisol HemeLymphocytes (Bld) [#/Vol]1.7 E9/LNormal1.0 - 4.0 E9/LRemisol Heme Lymphocytes/100 WBC (Bld)10.6 %Low14.0 - 50.0 %Remisol HemeMCH (RBC) [Entitic mass]31.4 wtRxhift37.0 - 34.0 pgRemisol HemeMCHC (RBC) [Mass/Vol]33.8 g/dLNormal 31.4 - 36.0 gm/dLRemisol HemeMCV (RBC) [Entitic vol]92.9 mAGfhngf76.0 - 100.0 fL Remisol HemeMonocytes (Bld) [#/Vol]0.9 E9/LNormal0.2 - 1.0 E9/LRemisol Heme Monocytes/100 WBC (Bld)5.7 %Normal4.0 - 14.0 %Remisol HemeNeutrophils (Bld) [#/Vol]13.5 E9/LHigh2.0 - 7.5 E9/LRemisol HemeNeutrophils/100 WBC (Bld)82.9 % High36.0 - 75.0 %Remisol AkrzEipfscih234.0 E9/BCuhncp450.0 - 500.0 E9/LRemisol HemePlatelet mean volume (Bld) [Entitic vol]7.6 fLNormal6.4 - 10.8 fLRemisol HemeRBC (Bld) [#/Vol]4.4 E12/LNormal4.3 - 5.9 E12/LRemisol HemeWBC corrected for nucl RBC Auto (Bld) [#/Vol]16.3 E9/LHigh4.0 - 11.0 E9/LRemisol HemeHep Func Panelon 22-71-0819Iwhmnes [Mass/Vol]4.1 g/dLNormal3.3-5.0Fisher [facility] CenterComment on above:Performed By: #### [id number] #### [place] [facility] [address] [place], [place] [address]Gumnurp/Globulin (S) [Mass conc ratio]1.5Vyriwo7.1-2.2Fisher [facility] Medical CenterComment on above:Performed By: #### [id number] #### [facility] [address], [place] [address]ZAH [Catalytic activity/Vol]38 Int._Unit/KNqecbm34-80HfuhfeChillicothe HospitalComment on above:Performed By: #### [id number] #### [facility] [address], [place] [address]FIK No additional P-5'-P [Catalytic activity/Vol]14 Int._Unit/L Normal6-46[facility] HospitalComment on above:Performed By: #### [id number] #### [facility] [address], [place] [address]QEK [Catalytic activity/Vol]16 Int._Unit/LNormal5-43[facility] HospitalComment on above:Performed By: #### [id number] #### [facility] [address] [place] [address]Vatsdeuom [Mass/Vol]0.7 mg/dLNormal0.0-1.1FAdams County HospitalComment on above:Performed By: #### [id number] #### [facility] [address] [place] [address]Uhchqtwiu.direct [Mass/Vol]0.1 mg/dLNormal0.0-0.4FAdams County HospitalComment on above:Performed By: #### [id number] #### [facility] [address] [place] [address]Nsuodzycm.indirect [Mass or moles/Vol]0.6 mg/dLNormal0.1-0.9 [facility] HospitalComment on above:Performed By: #### [id number] #### [facility] [address], [place] [address]Mspvpjtl (S) [Mass/Vol]2.8 g/dLNormal1.4-4.0[facility] HospitalComment on above:Performed By: #### [id number] #### [facility] [address] [place] [address]Mhqcoze [Mass/Vol]6.9 g/dLNormal6.0-7.8[facility] HospitalComment on above:Performed By: #### [id number] #### [facility] [address], [place] [address]Ohbpwbgbqawencdqk Note - Case Manageron 03-12-2024 Interdisciplinary Note - Case ManagerInterdisciplinary Note - Daytime Caregiver CRM to room 327 Patient is a new admission Nursing is doing her admit at this time. CRM will see patient on 03/13Normal [facility] HospitalComment on above:Result Comment: Electronically Signed By: Radha Trevino\.br\Date and Time Signed: 03/12/24 13:56 ESTLipase Levelon 85-67-4416Xecvfr [Catalytic activity/Vol]19 U/ZAlbuxw82-02HvmxfsChillicothe HospitalComment on above:Performed By: #### [id number] #### [facility] [address] [place] [address]XKRLQJOVBlbtlbp By: Leyla Mercer on 08-82-4901FRN.beta subunit (U) [Moles/Vol]NegativeNormalMCBRIDE ORTH[facility] [place] [facility] Man SeroTroponin 0 Hr.on 03-12-2024 Troponin HS<2.13Skz07.10-27.10[facility] HospitalComment on above:Result Comment: The 95% CI (Confidence Interval) PPV (Positive Predictive Value) for myocardial infarction in females is 38 pg/mL, in males 51 pg/mL. The results should be used in conjunction with clinical conditions of myocardial infarction. (Access High Sensitivity Troponin I Instructions For Use, [place], November 2017)Performed By: #### [id number] #### [facility] [address], [place] [address]H BetaHcg Qualon 82-75-0528OWS.beta subunit (U) [Moles/Vol] NegativeNormalChillicothe HospitalComment on above:Performed By: #### [id number] #### [facility] [address], [place] [address]UH with Cult Rflxon 19-35-4288Uokanhro Auto Ql (U)TraceNormal TraceChillicothe HospitalComment on above:Performed By: #### [id number] #### [facility] [address] [place] [address]Ygvsstqhc Ql (U)NegativeNormalNegativeChillicothe HospitalComment on above:Performed By: #### [id number] #### [facility] [address], [place] [address]Trexgbf (U)ClearNormalClearChillicothe HospitalComment on above:Performed By: #### [id number] #### [facility] [address] [place] [address]Ngyws (U)YellowNormalYellowChillicothe HospitalComment on above:Result Comment: Microscopic readings are only performed on those samples that meet specific criteria set forth by [facility].Performed By: #### [id number] #### [facility] [address] [place] [address]Xiqrynmuzk cells.squamous Auto (Urine sed) [#/Area]3-4Invalid Interpretation CodeChillicothe HospitalComment on above:Performed By: #### [id number] #### [facility] [address] [place] [address]Pfabnku Ql (U)NegativeNormalNegSuburban Community Hospital & [facility] Comment on above:Performed By: #### [id number] #### [facility] [address], [place] [address]Wqbudxdils Auto test strip (U) [Mass/Vol]NegativeNormalNegative [facility] HospitalComment on above:Performed By: #### [id number] #### [facility] [address], [place] [address]Nlmsiua Auto test strip Ql (U)NegativeNormalNegativeChillicothe HospitalComment on above:Performed By: #### [id number] #### [facility] [address] [place] [address]Eucuocyyn esterase Auto test strip Ql (U)NegativeNormalNegative [facility] HospitalComment on above:Performed By: #### [id number] #### [facility] [address] [place] [address]Xmfkm Auto Ql (U)TraceNormalNegSuburban Community Hospital & [facility] Comment on above:Performed By: #### [id number] #### [facility] [address] [place] [address]Zjqotiy Auto test strip Ql (U)NegativeNormalNegativeChillicothe HospitalComment on above:Performed By: #### [id number] #### [facility] [address] [place] [address] 07233sO (U)8.5 [pH]Invalid Interpretation Code5.0-9.0[facility] HospitalComment on above:Performed By: #### [id number] #### [facility] [address] [place] [address]Qissjof Ql (U)1+ mg/dLAbnormalNegativeChillicothe HospitalComment on above:Performed By: #### [id number] #### [facility] [address] [place] [address]SJX Ql (U)7-1Pjmdww0-1Pkaenz [facility] CenterComment on above:Performed By: #### [id number] #### [facility] [address] [place] [address]Wbpkjmqt gravity (U) [Rel density]1.017Invalid Interpretation Code1.005-1.030[facility] HospitalComment on above:Performed By: #### [id number] #### [facility] [address] [place] [address]Dcwwdaorskct (U) [Mass/Vol]NegativeNormalNegativeChillicothe HospitalComment on above:Performed By: #### [id number] #### [facility] [address] [place] [address]IMJ Auto (Urine sed) [#/Area]7-8Ofghzl8-5Lnlvsc [facility] CenterComment on above:Performed By: #### [id number] #### [facility] [address], [place] [address]Twyt of Urine collection methodClean CatchNormalFisher [facility] Medical CenterComment on above:Performed By: #### [id number] #### [facility] [address], [place] [address]KIMCYAEYLJMjpefgo By: SYSTEM SYSTEM on 04-74-8017Oszoaobo Auto Ql (U)Trace /HPFNormalTrace/HPFFT UA Auto SSBilirubin Ql (U)NegativeNormal Negativemg/dLMCBRIDE ORTH[facility] [place] UA Auto SSClarity (U)Clear (03/12/24 6:09 AM)NormalClearFPRAGUE COMMUNITY [facility] [place] Auto SSColor (U)Yellow 1 (03/12/24 6:09 AM)NormalYellowMCBRIDE ORTHOPEDIC [facility] [place] UA Auto SSComment on above:Interpretive Data: Microscopic readings are only performed on those samples that meet specific criteria set forth by [facility].Epithelial cells.squamous Auto (Urine sed) [#/Area]3-4 graded/HPFInvalid Interpretation CodeFT UA Auto SSGlucose Ql (U)NegativeNormalNegativemg/dLMCBRIDE ORTHOPEDIC HOSP[facility] [place] UA Auto SS Hemoglobin Auto test strip (U) [Mass/Vol]NegativeNormalNegativemg/dLFT UA Auto SSKetones Auto test strip Ql (U)NegativeNormalNegativemg/dLFT UA Auto SS Leukocyte esterase Auto test strip Ql (U)NegativeNormalNegativeLeu/uLFT UA Auto SSMucus Auto Ql (U)Trace graded/LPFNormalNegativegraded/LPFFTMC UA Auto SS Nitrite Auto test strip Ql (U)NegativeNormalNegativemg/dLFT UA Auto SSpH (U) 8.5 *NA* (03/12/24 6:09 AM)Invalid Interpretation Code5.0 - 9.0FT UA Auto SSProtein Ql (U)1+ mg/dLInvalid Interpretation CodeNegativemg/dLMCBRIDE ORTHOPEDIC [facility] [place] UA Auto SSRBC Ql (U)0-3 graded/HPFNormal0-3graded/[facility] UA Auto SSSpecific gravity (U) [Rel density] 1.017 *NA* (03/12/24 6:09 AM)Invalid Interpretation Code1.005 - 1.030MC[facility] [place] UA Auto SS Urobilinogen (U) [Mass/Vol]NegativeNormalNegativemg/dLMCBRIDE ORTHOP[facility] [place] UA Auto SSWBC Auto (Urine sed) [#/Area]0-5 graded/HPFNormal0-5graded/HPFMCBRIDE ORTHOPED[facility] [place] UA Auto SSURINALYSIS Ordered By: Tuan Lovell on [id number] Spec DescClean Catch (03/12/24 6:09 AM)NormalMCBRIDE ORTHOPED[facility] [place] UA Auto SS us Pelvis Non-OB Completeon 33-70-8099SU Pelvis Non-OB CompleteExam Date/Time: 03/12/2024 08:08 EST [...] JEREMIAH Technologist: CHELY Technical Comments Transabdominal Ultrasound PerformedNormalChillicothe HospitaleGFRon 51-04-3805dZMZ907 mL/min/1.73 s9Aatscx>=59Chillicothe HospitalComment on above:Performed By: #### [id number] #### [facility] [address] [place], [place] [address]WOB ACOG PANEL 2: 21 to 29on 06-03-2022..NormalDunlap Memorial HospitalComment on above:Performed By: #### [id number] #### [facility] [address] [place] [address] Dr. Vernon Franco Gdln ACOG Szlszwm18-08LktobsJomNationwide Children's HospitalComment on above:Performed By: #### [id number] #### [facility] [address] [place] [address] Dr. Vernon MerinoDIAGNOSIS:CommentNorwalk Memorial HospitalComment on above: Result Comment: NEGATIVE FOR INTRAEPITHELIAL LESION OR MALIGNANCY.Performed By: #### [id number] #### [facility] [address] [place] [address] Dr. Vernon MerinoMethodology:CommentNormTriHealth Good Samaritan HospitalComment on above: Result Comment: This liquid based ThinPrep(R) pap test was screened with the use of an image guided system.Performed By: #### [id number] #### [facility] [address] [place] [address] Dr. Vernon MerinoNote:CommentNorwalk Memorial HospitalComment on above:Result Comment: The Pap smear is a screening test designed to aid in the detection of premalignant and malignant conditions of the uterine cervix. It is not a diagnostic procedure and should not be used as the sole means of detecting cervical cancer. Both false-positive and false-negative reports do occur. .Performed By: #### [id number] #### [facility] [address] [place] [address] Dr. Vernon MerinoPerformed by:CommentSouthview Medical Center on above: Result Comment: Marciano Swann [employer] Inspector (ASCP)Performed By: #### [id number] #### [facility] [address] [place] [address] Dr. Vernon MerinoReflex Criteria:CommentSouthview Medical Center on above:Result Comment: The HPV DNA reflex criteria were not met with this specimen result therefore, no HPV testing was performed. .Performed By: #### [id number] #### [facility] [address] [place] [address] Dr. Vernon MerinoSpecimedeanna adequacy:CommentSouthview Medical Center on above:Result Comment: Satisfactory for evaluation. Endocervical and/or squamous metaplastic cells (endocervical component) are present.Performed By: #### [id number] #### [facility] [address] [place] [address] Dr. Vernon Lee SERUMon 80-89-8079Zjaozhtidsfscnsaznqzam (DHEA)633 ng/dL Lyhhsl74-731Eww [facility] on above:Result Comment: Age 1 - 5 years 0 - 67 6 - 7 years 0 - 110 8 - 10 years 0 - 185 11 - 12 years 0 - 201 13 - 14 years 0 - 318 15 - 16 years 39 - 481 17 - 19 years 40 - 491 >19 years 31 - 701Performed By: #### DHEA. #### [facility] [address] [place] [address] Dr. Vernon Lee-SULFATEon 03-02-0636YLOT-Fggcymh578.0 ug/tUMomupd280.0-431.7 [facility] on above:Performed By: #### DHEASUL #### [facility] [address] [place] [address] Dr. Vernon Gabriel 55-03-1393LZH4.7 mIU/mLNormalDunlap Memorial HospitalComment on above:Result Comment: Adult Female: Follicular phase 3.5 - 12.5 Ovulation phase 4.7 - 21.5 Luteal phase 1.7 - 7.7 Postmenopausal 25.8 - 134.8Performed By: #### LBCFSH #### [facility] [address] [place] [address] Dr. Vernon MerinoLUTEINIZING HORMONE (LH)on 01-01-9324LP74.3 mIU/mLNormalDunlap Memorial HospitalComment on above:Result Comment: Adult Female: Follicular phase 2.4 - 12.6 Ovulation phase 14.0 - 95.6 Luteal phase 1.0 - 11.4 Postmenopausal 7.7 - 58.5Performed By: #### LBCLH #### [facility] [address] [place] [address] Dr. Vernon MerinoPROLACTINon 02-85-2985Ryxkutbop24.8 ng/mLNormal4.8-23.3The Detroit HospitalComment on above:Performed By: #### PROLAC #### [facility] [address] [place] [address] Dr. Vernon MerinoCBC AUTO DIFFon 54-00-5656HFHB #0.1 103/ulNormal0.0-0.1The [facility] CenterComment on above:Performed By: #### CBC ####[facility] [address] [place], [place] [address]DrDorie MerinoBasophils/100 WBC (Bld)1.1 %Normal0.2-2.0The [facility] CenterComment on above:Performed By: #### CBC ####[facility] [address] [address]DrDorie ChangEO #0.1 103/ulNormal0.0-0.7The [facility] CenterComment on above:Performed By: #### CBC ####[facility] [address] [place], [place] [address]DrDorie ChangEosinophils/100 WBC (Bld)1.6 %Normal 0.9-7.0The [facility] CenterComment on above:Performed By: #### CBC ####[facility] [address] [place], [place] [address]Dr.Vernon Merino Erythrocyte distribution width (RBC) [Ratio]12.1 %Rktbkc49.0-15.0The [facility] CenterComment on above:Performed By: #### CBC ####[facility] Y[address] [place], [place] [address]Dr.Vernon WilberHematocrit (Bld) [Volume fraction]44.5 %Gdbfzo18.0-48.0The [facility] CenterComment on above:Performed By: #### CBC ####[facility] I[address] [place], [place] [address]Dr.Vernon MerinoHemoglobin (Bld) [Mass/Vol]14.3 g/dL Vmghno21.0-16.0The [facility] CenterComment on above:Performed By: #### CBC ####[facility] E[address] [place], [place] [address]Dr. Vernon MerinoIG #0.01 10e3/ulNormal0.00-0.03The [facility] CenterComment on above: Performed By: #### CBC ####[facility] Z[address] [place], [place] [address]Dr.Vernon MerinoIG %0.2 %Normal0.0-0.5The [facility] CenterComment on above:Performed By: #### CBC ####[facility] Oyuj[address] [place], [place] [address]Dr.Vernon MerinoLYMPH #1.8 103/ulNormal1.2-3.8The [facility] CenterComment on above:Performed By: #### CBC ####[facility] J[address]iwp[address] [place], [place] [address]Dr. Vernon MerinoLymphocytes/100 WBC (Bld)29.5 %Cgckvh98.5-60.0The [facility] Comment on above:Performed By: #### CBC ####[facility] Dup[address] [place], [place] [address]Dr.Vernon MerinoMANUAL DIFF REQNONormalThe [facility] CenterComment on above:Performed By: #### CBC ####[facility] Cfhfhtgt[address] [place], [place] [address]Dr.Vernon MerinoH (RBC) [Entitic mass]30.6 xiFsdhfh62.7-34.0The [facility] HospitalComment on above: Performed By: #### CBC ####[facility] [address]qro[address] [place], [place] [address]Dr.Vernon MerinoHC (RBC) [Mass/Vol]32.1 g/dLNormal 29.9-35.2The [facility] CenterComment on above:Performed By: #### CBC ####[facility] Patwtnpjax[address] [place], [place] [address]Dr. Veronn MerinoV (RBC) [Entitic vol]95.3 mNVygqzv14.0-99.0The [facility] Comment on above:Performed By: #### CBC ####[facility] [address] [place], [place] [address]Dr.Vernon MerinoMONO #0.5 103/ulNormal0.3-0.8 The [facility] CenterComment on above:Performed By: #### CBC ####[facility] Nlon[address]oyisr[address] [place], [place] [address]Dr.Vernon Merino Monocytes/100 WBC (Bld)8.7 %Normal1.7-12.0The [facility] CenterComment on above: Performed By: #### CBC ####[facility] Gf[address]md[address] [place], [place] [address]Dr.Vernon MerinoNEUT #3.6 103/ulNormal1.4-6.5The [facility] CenterComment on above:Performed By: #### CBC ####[facility] [address] [place], [place] [address]Dr.Vernon MerinoNeutrophils/100 WBC (Bld)58.9 %Itilkp65.0-75.0The [facility] CenterComment on above:Performed By: #### CBC ####[facility] [address] [address]DrDorie MerinoPlatelet mean volume (Bld) [Entitic vol]9.9 fLNormal9.5-13.5 The [facility] CenterComment on above:Performed By: #### CBC ####[facility] [address] [address]Dr.Vernon IgkbxCCF571 103/acEiteqf495-622Jyc [facility] CenterComment on above:Performed By: #### CBC ####[facility] [address] [address]Dr. Vernon MerinoRBC4.67 106/ulNormal4.20-5.40The [facility] CenterComment on above: Performed By: #### CBC ####[facility] [address] [address]Dr.Vernon MerinoWBC6.1 103/ulNormal4.0-11.0The [facility] CenterComment on above:Performed By: #### CBC ####[facility] [address] [address]DrDorie MerinoFREE T4on 41-95-3810Srst T4 [Mass/Vol]1.10 ng/dLNormal0.76-1.46The [facility] Comment on above:Performed By: #### FT4 #### [facility] [address] [address] [address] Vernon MerinoGLYCOHEMOGLOBIN A1Con 01-62-7729LQB RECOMMENDATIONSEE BELOWNormal The [facility] CenterComkresge eye institute on above:Result Comment: ADA RECOMMENDED LIMIT 4.0 - 6.0 ADA THERAPEUTIC TARGET < 7.0 ACTION SUGGESTED > 7.0Performed By: #### A1C #### [facility] [address] [address] [address] Vernon MerinoGlucose [Mass/Vol]105 mg/dLNormalThe [facility] CenterComment on above:Performed By: #### A1C #### [facility] [address] [address] [address] Vernon MerinoHbA1c (Bld) [Mass fraction]5.3 %Normal4.5-6.2The [facility] CenterComment on above:Performed By: #### A1C #### [facility] [address] [place] [address] Dr. Vernon Chandler 30-81-5165GCN8.981 uIU/mLNormal0.358-3.740The [facility] CenterComment on above:Performed By: #### TSH #### [facility] [address] [place] [address] Vernon MerinoUS PELVIS AND TRANSVAGon 78-31-2244TK PELVIS AND TRANSVAG EXAMINATION: US PELVIS AND [...] Electronically authenticated by: ANTHONY AQUINO Date: 2022-05-12 11:17Norwalk Memorial HospitalBody fluid albumin measurement (mass/volume)Ordered By: OUTREACH COMM[employer]ITY on 62-14-7104Inddwlf (Body fld) [Mass/Vol]4.0 g/dL3.2-5.5 Luther[facility] HospitalCBC Without Differentialon 03-13-2022 Erythrocyte distribution width (RBC) [Ratio]12.9 %Bljibl56.9-15.3FKettering Health Main CampusComment on above:Performed By: #### OUTREACH CMP, OUTREACH LIPID, OUTREACH TSH, CBCNOOUTREACH #### [place] [address] USAHematocrit (Bld) [Volume fraction]42.3 %Ouuxzl04.0-46.4 [facility] HospitalComment on above:Performed By: #### OUTREACH CMP, OUTREACH LIPID, OUTREACH TSH, CBCNOOUTREACH #### [place] [address] USAHemoglobin (Bld) [Mass/Vol]14.1 g/fMDayjth21.8-15.4 [facility] HospitalComment on above:Performed By: #### OUTREACH CMP, OUTREACH LIPID, OUTREACH TSH, CBCNOOUTREACH #### [address]H (RBC) [Entitic mass]30.6 emSgrmpa45.7-34.3FKettering Health Main CampusComment on above:Performed By: #### OUTREACH CMP, OUTREACH LIPID, OUTREACH TSH, CBCNOOUTREACH #### [place] [address] USAMCV (RBC) [Entitic vol]92.0 hSBwnymi89-705BsyfsodhkLutheran HospitalComment on above:Performed By: #### OUTREACH CMP, OUTREACH LIPID, OUTREACH TSH, CBCNOOUTREACH #### [place] [address] USAMean Corpuscular HGB Conc33.2 g/yLFptrmp86.0-35.0Lutheran HospitalComment on above:Performed By: #### OUTREACH CMP, OUTREACH LIPID, OUTREACH TSH, CBCNOOUTREACH #### [place] [address] USAPlatelet mean volume (Bld) [Entitic vol]8.6 fLNormal 6.3-10.7FKettering Health Main CampusComment on above:Result Comment: PERFORMED BY: [place] [address] PATHOLOGIST LITHOGRAPHIC PLATE MAKER YEN ESCOBAR M.D.Performed By: #### OUTREACH CMP, OUTREACH LIPID, OUTREACH TSH, CBCNOOUTREACH #### [facility] [address] [id number] USAPlatelets (Bld) [#/Vol]283 10*3/bZTwcmob997-386CcyudsdadLutheran HospitalComment on above:Performed By: #### OUTREACH CMP, OUTREACH LIPID, OUTREACH TSH, CBCNOOUTREACH #### [facility] [address] [place] [address] USARBC (Bld) [#/Vol]4.60 10*6/uLNormal3.60-5.00Lutheran HospitalComment on above:Performed By: #### OUTREACH CMP, OUTREACH LIPID, OUTREACH TSH, CBCNOOUTREACH #### [facility] [address] [place] [address] USAWBC (Bld) [#/Vol]6.6 10*3/uLNormal3.8-11.6FKettering Health Main CampusComment on above:Performed By: #### OUTREACH CMP, OUTREACH LIPID, OUTREACH TSH, CBCNOOUTREACH #### [facility] [address] [place] [address] USACMP Outreachon 28-86-8242Chjnwcs [Mass/Vol]4.0 g/dLNormal 3.2-5.5FKettering Health Main CampusComment on above:Performed By: #### OUTREACH CMP, OUTREACH LIPID, OUTREACH TSH, CBCNOOUTREACH #### [facility] [address] [place] [address] USAALP [Catalytic activity/Vol]42 U/ATxbkyi81-87CbsbtaabmLutheran HospitalComment on above:Performed By: #### OUTREACH CMP, OUTREACH LIPID, OUTREACH TSH, CBCNOOUTREACH #### [facility] [address] [place] [address] USAALT [Catalytic activity/Vol]21 U/EDdzeke29-58NswlmsnbwLutheran HospitalComment on above:Performed By: #### OUTREACH CMP, OUTREACH LIPID, OUTREACH TSH, CBCNOOUTREACH #### [facility] [address] [place] [address] USAAnion gap [Moles/Vol]9.3 mmol/LNormal6.0-15.0Lutheran HospitalComment on above:Performed By: #### OUTREACH CMP, OUTREACH LIPID, OUTREACH TSH, CBCNOOUTREACH #### [facility] [address] [place] [address] USAAST [Catalytic activity/Vol]22 U/XDeebyl02-50HjdshmaavLutheran HospitalComment on above:Performed By: #### OUTREACH CMP, OUTREACH LIPID, OUTREACH TSH, CBCNOOUTREACH #### [facility] [address] [place] [address] USABilirubin [Mass/Vol]0.6 mg/dLNormal0.3-1.2FKettering Health Main CampusComment on above:Performed By: #### OUTREACH CMP, OUTREACH LIPID, OUTREACH TSH, CBCNOOUTREACH #### [facility] [address] [place] [address] USACalcium [Mass/Vol]9.2 mg/dLNormal8.2-10.2FKettering Health Main CampusComment on above:Performed By: #### OUTREACH CMP, OUTREACH LIPID, OUTREACH TSH, CBCNOOUTREACH #### [facility] [address] [place] [address] USAChloride [Moles/Vol]103 mmol/HUkabds06-522DmdbddqihLutheran HospitalComment on above:Performed By: #### OUTREACH CMP, OUTREACH LIPID, OUTREACH TSH, CBCNOOUTREACH #### [facility] [address] [id number] USACO2 [Moles/Vol]27.8 mmol/LPodtdc97.0-30.0Lutheran HospitalComment on above:Performed By: #### OUTREACH CMP, OUTREACH LIPID, OUTREACH TSH, CBCNOOUTREACH #### [facility] [address] [place] [address] USACreatinine [Mass/Vol]0.62 mg/dLNormal0.44-1.03Lutheran HospitalComment on above:Performed By: #### OUTREACH CMP, OUTREACH LIPID, OUTREACH TSH, CBCNOOUTREACH #### [facility] [address] [place] [address] USAEstimated GFR ( Sara> 60NormalLutheran HospitalComment on above:Result Comment: GFR estimated reference range: According to KDOQI guidelines, <60 ml/min/1.73m2 is sufficient to diagnose a patient with chronic kidney disease.Performed By: #### OUTREACH CMP, OUTREACH LIPID, OUTREACH TSH, CBCNOOUTREACH #### [facility] [address] [place] [address] USAEstimated GFR (Non- Am> 60NormMercy Health West HospitalComment on above:Performed By: #### OUTREACH CMP, OUTREACH LIPID, OUTREACH TSH, CBCNOOUTREACH #### [facility] [address] [id number] USAGlucose [Mass/Vol]91 mg/jWUolgmf44-791SvinlnyyaLutheran HospitalComment on above:Result Comment: Random Glucose Reference Range is dependent on time and content of last meal. Glucose of more than 200 mg/dL in a nonstressed, ambulatory subject supports the diagnosis of Diabetes Mellitus. ADA recommended reference rangePerformed By: #### OUTREACH CMP, OUTREACH LIPID, OUTREACH TSH, CBCNOOUTREACH #### [facility] [address] [id number] USAPotassium [Moles/Vol]4.1 mmol/LNormal3.5-5.1FKettering Health Main CampusComment on above:Performed By: #### OUTREACH CMP, OUTREACH LIPID, OUTREACH TSH, CBCNOOUTREACH #### [facility] [address] [place] [address] USAProtein [Mass/Vol]6.8 g/dLNormal6.1-7.9Lutheran HospitalComment on above:Performed By: #### OUTREACH CMP, OUTREACH LIPID, OUTREACH TSH, CBCNOOUTREACH #### [facility] [address] [id number] USASodium [Moles/Vol]136 mmol/KWibfue892-502FpdiwmjyhLutheran HospitalComment on above:Performed By: #### OUTREACH CMP, OUTREACH LIPID, OUTREACH TSH, CBCNOOUTREACH #### [facility] [address] [id number] USAUrea nitrogen [Mass/Vol]9 mg/dLNormal9-23Lutheran HospitalComment on above:Performed By: #### OUTREACH CMP, OUTREACH LIPID, OUTREACH TSH, CBCNOOUTREACH #### [facility] [address] [place] [address] USACholesterol [Mass/volume] in Serum or PlasmaOrdered By: OUTREACH [facility] on 07-88-5310Mutwfnvbxfu [Mass/Vol]180 mg/cN694-697KdcgqtjyeLutheran HospitalComment on above:Chol less than 200 mg/dl low riskChol 201-239 mg/dl borderline riskChol 240 mg/dl and greater high riskCholesterol in LDL Calc [Mass/Vol]Ordered By: [facility] on 96-83-9211Nxomsxvlxzl in LDL [Mass/Vol]113 mg/dL0-100Lutheran HospitalComment on above: LDL ATP III CLASSIFICATIONLDL less than 100 mg/dL OptimalLDL 100-129 mg/dL Near or above nbchozpWDO749-868 mg/dL Borderline highLDL 160-189 mg/dL HighLDL greater than 189 mg/dL Very highCholesterol in VLDL Calc [Mass/Vol]Ordered By: [facility] on 30-74-6133Jpdxuflkpqr in VLDL [Mass/Vol]11 mg/dLLutheran HospitalCreatinine and Glomerular filtration rate.predicted panel (S/P/Bld)Ordered By: [facility] on 60-28-5554Hloheranlm [Mass/Vol]0.62 mg/dL0.44-1.03Lutheran HospitalErythrocyte distribution width Auto (RBC) [Ratio]Ordered By: [facility] on 55-70-1601Vahpqwssqha distribution width (RBC) [Ratio]12.9 %11.9-15.3FKettering Health Main Campus Estimated glomerular filtration rate (GFR) non- AmericanOrdered By: OUTREACH [facility] on 50-22-0256IWO/1.73 sq M.predicted among non-blacks MDRD (S/P/Bld) [Vol rate/Area]> 60 mL/MinLutheran HospitalHematocrit Auto (Bld) [Volume fraction]Ordered By: OUTREACH [facility] on 03-13-2022 Hematocrit (Bld) [Volume fraction]42.3 %34.0-46.4FKettering Health Main CampusHemoglobin [Mass/volume] in BloodOrdered By: [facility] on 35-24-5240Ntthagxtes (Bld) [Mass/Vol]14.1 g/dL11.8-15.4FKettering Health Main CampusLeukocytes [#/volume] corrected for nucleated erythrocytes in Blood by Automated counOrdered By: [facility] on 32-97-5894JIG corrected for nucl RBC Auto (Bld) [#/Vol]6.6 10*3/uL3.8-11.6FKettering Health Main CampusLipid Profile Outreachon 99-97-5111Zynlhhjzcqd [Mass/Vol]180 mg/dLNormal 140-200Lutheran HospitalComment on above:Result Comment: Chol less than 200 mg/dl low risk Chol 201-239 mg/dl borderline risk Chol 240 mg/dl and greater high riskPerformed By: #### OUTREACH CMP, OUTREACH LIPID, OUTREACH TSH, CBCNOOUTREACH #### [facility] [address] [place] [address] USACholesterol in HDL [Mass/Vol]56 mg/uIXmbxqh97-99VxldyolmeLutheran HospitalComment on above:Result Comment: HDL CHOL ATP-III CLASSIFICATION Cardiovascular Risk HDL > or equal to 60 mg/dL LOW HDL < 40 mg/dL HIGHPerformed By: #### OUTREACH CMP, OUTREACH LIPID, OUTREACH TSH, CBCNOOUTREACH #### [facility] [address] [place] [address] USACholesterol.total/Cholesterol in HDL [Mass ratio]3.2 {ratio}Normal<5.0Lutheran HospitalComment on above:Performed By: #### OUTREACH CMP, OUTREACH LIPID, OUTREACH TSH, CBCNOOUTREACH #### [facility] [address] [place] [address] USALDL Cholesterol,Jzvvjpclar297 mg/dLHigh0-100Lutheran HospitalComment on above:Result Comment: LDL ATP III CLASSIFICATION LDL less than 100 mg/dL Optimal LDL 100-129 mg/dL Near or above optimal LDL 130-159 mg/dL Borderline high LDL 160-189 mg/dL High LDL greater than 189 mg/dL Very highPerformed By: #### OUTREACH CMP, OUTREACH LIPID, OUTREACH TSH, CBCNOOUTREACH #### [facility] [address] [id number] USATriglyceride w/Hrdnew23 mg/jOZzqsgi94-057SgveimlesLutheran HospitalComment on above:Result Comment: TRIG ATP III CLASSIFICATION TRIG less than 150 mg/dL Normal TRIG 150-199 mg/dL Borderline high TRIG 200-500 mg/dL High TRIG greater than 500 mg/dL Very high Standard traceable to the Center for Disease Conrtrol and Prevention (CDC) test method.Performed By: #### OUTREACH CMP, OUTREACH LIPID, OUTREACH TSH, CBCNOOUTREACH #### [facility] [address] [id number] USAVLDL MDOWQPBXLVR44 mg/dLNoWilson Street HospitalComment on above:Performed By: #### OUTREACH CMP, OUTREACH LIPID, OUTREACH TSH, CBCNOOUTREACH #### [facility] [address] [id number] [facility] Auto (RBC) [Entitic mass]Ordered By: [facility] on 88-81-7853YFM (RBC) [Entitic mass]30.6 pg24.7-34.3FWadsworth-Rittman HospitalHC Auto (RBC) [Mass/Vol]Ordered By: [facility] on 58-29-3594XVSA (RBC) [Mass/Vol]33.2 g/dL32.0-35.0Lutheran HospitalMCV Auto (RBC) [Entitic vol]Ordered By: [facility] on 03-13-2022 MCV (RBC) [Entitic vol]92.0 qV32-634FdnmbsccdLutheran HospitalNo Panel InformationOrdered By: [facility] on 59-21-0683Rovytnbzj GFR ()> 60 mL/MinLutheran HospitalComment on above:GFR estimated reference range: According to KDOQI guidelines, <60 ml/min/1.73m2 is sufficient todiagnose a patient with chronic kidney disease.Pharmacy Creatinine Clearance (ChemN/[facility] EastTriglycerides Usldhq57 mg/dL 35-149Lutheran HospitalComment on above:TRIG ATP III CLASSIFICATIONTRIG less than 150 mg/dL NormalTRIG 150-199 mg/dL Borderline highTRIG 200-500 mg/dL High TRIG greater than 500 mg/dL Very highStandard traceable to the Center for Disease Conrtrol and Prevention (CDC) test method. Platelet mean volume Auto (Bld) [Entitic vol]Ordered By: [facility] on 93-96-9177Fdhkbqez mean volume (Bld) [Entitic vol]8.6 fL6.3-10.7FKettering Health Main CampusPlatelets Auto (Bld) [#/Vol]Ordered By: OUTREACH [facility] on 02-06-0910Dtuolcjza (Bld) [#/Vol]283 10*3/rU267-898BvabvpsrdLutheran HospitalProtein [Mass/volume] in Serum or PlasmaOrdered By: [facility] on 40-92-2003Zjrxdob [Mass/Vol]6.8 g/dL6.1-7.9Lutheran HospitalRBC Auto (Bld) [#/Vol]Ordered By: OUTREACH [facility] on 26-90-2065GQF (Bld) [#/Vol]4.60 10*6/uL3.60-5.00UC [facility] Hospitalerum or plasma alanine aminotransferase measurement without P-5'-P (enzymatic activiOrdered By: OUTREACH [facility] on 87-80-5265IHM No additional P-5'-P [Catalytic activity/Vol]21 U/W48-13TjzeipkdpUC West Chester Hospitalerum or plasma alkaline phosphatase measurement (enzymatic activity/volume)Ordered By: OUTREACH [facility] on 75-53-3095BXX [Catalytic activity/Vol]42 U/L32-92 [facility] Hospitalerum or plasma anion gap determinationOrdered By: OUTREACH [facility] on 12-40-6245Ikcnj gap [Moles/Vol]9.3 mmol/L6.0-15.0 [facility] Hospitalerum or plasma aspartate aminotransferase measurement (enzymatic activity/volume)Ordered By: OUTREACH [facility] on 37-46-6390PDP [Catalytic activity/Vol]22 U/T37-43YzrxltzzcUC West Chester Hospitalerum or plasma calcium measurement (mass/volume)Ordered By: OUTREACH [facility] on 84-48-9106Eyouolr [Mass/Vol]9.2 mg/dL8.2-10.2FBlanchard Valley Health System Blanchard Valley Hospitalerum or plasma chloride measurement (moles/volume)Ordered By: [facility] on 00-25-3834Kebwpjsb [Moles/Vol]103 mmol/M48-357NwlhydabfUC West Chester Hospitalerum or plasma glucose measurement (mass/volume)Ordered By: [facility] on 95-21-6971Lyloiwl [Mass/Vol]91 mg/jH65-984NdqeksjnyLutheran HospitalComment on above:ADA recommended reference rangeRandom Glucose Reference Range is dependent on time and content of last meal. Glucose of more than 200 mg/dL in a nonstressed, ambulatory subject supports the diagnosisof Diabetes Mellitus.Serum or plasma high density lipoprotein (HDL) cholesterol measurementOrdered By: [facility] on 22-54-6487Ckiczkewzcs in HDL [Mass/Vol]56 mg/gY45-62LqlulxymoLutheran HospitalComment on above: HDL CHOL ATP-III CLASSIFICATION Cardiovascular RiskHDL > or equal to 60 mg/dL LOWHDL < 40 mg/dL HIGHSerum or plasma potassium measurement (moles/volume) Ordered By: [facility] on 21-24-3493Rhavigeuc [Moles/Vol]4.1 mmol/L 3.5-5.1FBlanchard Valley Health System Blanchard Valley Hospitalerum or plasma sodium measurement (moles/volume)Ordered By: [facility] on 64-76-6830Jwvarb [Moles/Vol]136 mmol/P401-180GtybmdbxjUC West Chester Hospitalerum or plasma total bilirubin measurement (mass/volume)Ordered By: [facility] on 87-71-8027Huvjjitny [Mass/Vol]0.6 mg/dL0.3-1.2FBlanchard Valley Health System Blanchard Valley Hospitalerum or plasma total carbon dioxide measurement (moles/volume)Ordered By: [facility] on 06-39-4968NO8 [Moles/Vol]27.8 mmol/L22.0-30.0[facility] Serum or plasma total cholesterol/high density lipoprotein (HDL) cholesterol mass ratOrdered By: [facility] on 03-13-2022 Cholesterol.total/Cholesterol in HDL [Mass ratio]3.2 {ratio}<5.0UC [facility] Hospitalerum or plasma urea nitrogen measurement (mass/volume) Ordered By: OUTREACH [facility] on 11-32-9161Nozh nitrogen [Mass/Vol]9 mg/dL9-23 Lutheran HospitalTSH DL <= 0.005 mIU/L QnOrdered By: OUTREACH COMMUNITY on 71-80-2313JQD Qn3.87 m[IU]/L0.45-5.33Lutheran HospitalThyroid Stimulating Hormoneon 31-52-0650JZF Qn3.87 m[IU]/LNormal0.45-5.33 Lutheran HospitalComment on above:Result Comment: PERFORMED BY: [facility] [address] [id number] PATHOLOGIST LITHOGRAPHIC PLATE MAKER YEN ESCOBAR M.D.Performed By: #### OUTREACH CMP, OUTREACH LIPID, OUTREACH TSH, CBCNOOUTREACH #### [address] [id number] [facility] Vital Signs Date TimeVital SignValuePerforming FafcgiggfRlbjrqge00-65-6974 10:54-0500Body mass index (BMI) [Ratio]33.27 kg/d7Jeekw Lalitha DO Work Phone: [phone] [place], [place] [address]Mjsurazunh39-91-1032 10:54-0500Body unngka00.91 kgCorey Lalitha DO Work Phone: [phone] [place], [place] [address]Mmrxfsziuj22-78-1908 10:54-0500Diastolic blood towrdsmf29 mm[Hg]Morro Lalitha DO Work Phone: [phone] [place], [place] [address]Ibylkgpiic27-71-5548 10:54-0500Systolic blood mbddfcge887 mm[Hg]Morro Lalitha DO Work Phone: [phone] [place], [place] [address]Wrbaeakrhr41-79-8891 09:38-0400Body mass index (BMI) [Ratio]32.79 kg/m2Sunshine THAO Work Phone: [phone] HospitalUwmwbbeelc15-27-4183 09:38-0400Body ogbgbi75.64 kgSunshine THAO Work Phone: [phone] HospitalMdsxzdhkdq98-88-6223 09:38-0400Diastolic blood bepkxagv38 mm[Hg]Sunshine THAO Work Phone: [facility] HospitalJaeotzhbir16-16-1968 09:38-0400Systolic blood ciwodnfz160 mm[Hg]Sunshine THAO Work Phone: [phone]-[facility] HospitalKrpqnhtljw40-05-7371 10:35-0400Body mass index (BMI) [Ratio]32.17 kg/i0OjvdupexWalter Lambly FIELD SUPERVISOR SEED PRODUCTION Work Phone: [phone]-[facility] HospitalOyancofvrq31-40-5880 10:35-0400Body ozuedi46 kg Walter Pierreerly FIELD SUPERVISOR SEED PRODUCTION Work Phone: [phone] [place], [place] [address]Grsgnmkbtg43-51-7704 10:35-0400Diastolic blood clapvvwm97 mm[Hg]Walter Emeli FIELD SUPERVISOR SE[employer] PRODUCTION Work Phone: [phone] [place], [place] [address]Hzcqjaqeaa59-76-7689 10:35-0400Systolic blood nbgrovjz759 mm[Hg]Walter Emeli FIELD SUPERVISOR SE[employer] PRODUCTION Work Phone: [phone] [place], [place] [address]Bjwibjhqtj68-95-7723 09:08-0400Body mass index (BMI) [Ratio]31.07 kg/p6IzjnnsaqWalter Pierreerly FIELD SUPERVISOR SEED PRODUCTION Work Phone: [phone])[facility] [place], [place] [address]Slqksrplji59-68-8307 09:08-0400Body dipjuz55.1 kg Walter Pierreerly FIELD SUPERVISOR SEED PRODUCTION Work Phone: [phone] [place], [place] [address]Mtskyevdwk95-79-4001 09:08-0400Diastolic blood mm[Hg]Walter Emeli FIELD SUPERVISOR SE[employer] PRODUCTION Work Phone: [phone] [place], [place] [address]Oclbdisdgc58-96-4044 09:08-0400Systolic blood fqiipfay211 mm[Hg]Walter Emeli FIELD SUPERVISOR SE[employer] PRODUCTION Work Phone: [phone])[facility] [place], [place] [address]Kwktnapyof58-83-0512 11:54-0400Body mass index (BMI) [Ratio]29.7 kg/m2Amy Caridad THAO Work Phone: [phone] [place], [place] [address]Ucjtokhbsd40-37-4976 11:54-0400Body ycaqtz92.47 kgSunshine THAO Work Phone: [phone] [place], [place] [address]Sfgtmcocnq23-86-1987 11:54-0400Diastolic blood kcclrymf59 mm[Hg]Sunshine THAO Work Phone: [phone] [place], [place] [address]Qwzedinjqe19-66-5953 11:54-0400Systolic blood keravxvy819 mm[Hg]Sunshine THAO Work Phone: [facility] HospitalSkuxjbihgi12-71-5437 09:32-0400Body mass index (BMI) [Ratio]29.35 kg/y0Tdxob Lalitha DO Work Phone: [facility] HospitalXishvcjfit78-76-1048 09:32-0400Body qneuqw89.56 kgCorey Lalitha DO Work Phone: [facility] HospitalXuoertkgwb36-75-7958 09:32-0400Diastolic blood dtliyavq47 mm[Hg]Morrorajinder Weinbergo DO Work Phone: [facility] HospitalLgotaqykhx00-14-6823 09:32-0400Systolic blood oevdyfsh295 mm[Hg]Morrorajinder Weinbergo DO Work Phone: [facility] HospitalIocnrizcpa94-45-6042 11:05-0400Body mass index (BMI) [Ratio]29.18 kg/m2[facility]06-06-2025 11:05-0400Body .11 kg[facility]06-06-2025 11:05-0400Diastolic blood wltlkbin04 mm[Hg][facility]06-06-2025 11:05-0400Systolic blood llhihfjk679 mm[Hg][facility]05-20-2025 10:37-0400Body mass index (BMI) [Ratio]28.67 kg/m2Sunshine THAO Work Phone: [facility] HospitalOjmlpjmdej15-54-6906 10:37-0400Body obvpaw88.75 kgSunshine THAO Work Phone: [facility] HospitalBggewkrjoe00-83-8765 10:37-0400Diastolic blood drsabxff80 mm[Hg]Sunshine THAO Work Phone: [facility] HospitalTbrtemkhue10-73-8441 10:37-0400Systolic blood dqikdeko874 mm[Hg]Sunshine THAO Work Phone: [facility] HospitalQxrbgtuses20-62-7535 14:00-0500Hourly Jo Qiunn [facility]12-03-2024 14:00-0500Promise to ReturnEmmanMemorial [facility]12-03-2024 13:00-0500Hourly RoundingEmmanMemorial Health System [facility]12-03-2024 13:00-0500 Promise to ReturnEmmanMemorial Health System [facility]12-03-2024 12:00-0500Hourly RoundingEmmanMemorial Health System [facility]12-03-2024 12:00-0500Promise to ReturnEmmanMemorial [facility] 03-13-2024 04:08-0500Heart rate61 /minEmmanmirna [facility]12-03-2024 04:08-0678TsV8% (BldA) [Mass fraction]98 %[facility]ai [facility]12-03-2024 04:07-0500Diastolic blood ysjdkcvs59 mm[Hg][facility]12-03-2024 04:07-0500Mean blood htefgval03 mm[Hg][facility]12-03-2024 04:07-0500Systolic blood omtmjvps24 mm[Hg]Kai [facility]12-03-2024 04:00-0500Blood Pressure LocationEmeveretteMemorial Health System [facility]12-03-2024 04:00-0500Body .88 [degF]Kai [facility]12-03-2024 01:00-0500Blood Pressure Location [facility]Mem[facility]12-03-2024 01:00-0500Diastolic blood uwzocutm89 mm[Hg][facility]12-03-2024 01:00-0500Heart rate67 /minEarabellanmirna [facility] 03-13-2024 01:00-0500Mean blood sopqjneb96 mm[Hg]Kai [facility]12-03-2024 01:00-0500Systolic blood orpzdjmr30 mm[Hg][facility]12-03-2024 00:49-0500Heart rate63 /min Kai [facility]12-03-2024 00:49-8872QbL5% (BldA) [Mass fraction]98 %Kai [facility]12-03-2024 00:49-0500Diastolic blood qgsvfobr31 mm[Hg]Kai [facility]12-03-2024 00:49-0500Mean blood mm[Hg][facility]12-03-2024 00:49-0500Systolic blood robejfdj11 mm[Hg]Kai [facility]12-03-2024 00:49-0500Body eoizpluzmqm35.52 [degF]Kai [facility]12-02-2024 19:41-1603WmB4% (BldA) [Mass fraction]99 %Kai [facility]12-02-2024 19:40-0500Body fpahdpreuka05.88 [degF]Kai [facility]12-02-2024 19:40-0500Mean blood mm[Hg]Kai [facility]12-02-2024 16:00-0500Body wabqgniutqr50.24 [degF]Kai [facility]12-02-2024 13:01-0500Body yfykfphhfvi42.88 [degF]Kai [facility]12-02-2024 13:00-0500Heart rate87 /minEjosué [facility] 03-12-2024 11:53-0500Mean blood mm[Hg]Kai [facility]12-02-2024 11:53-0500Respiratory rate13 /[facility]12-02-2024 11:00-0500Mean blood abuenwfu62 mm[Hg]Kai [facility]12-02-2024 10:30-0500Respiratory rate11 /[facility]12-02-2024 07:04-0500 Respiratory rate16 /[facility]12-02-2024 05:46-0500Heart rate84 /[facility] Encounters Encounter DateEncounter TypeCare ProviderFacilityStart: 02-20-2025 End: 18-25-8074Hylcmc flowsheetCorey Lalitha DO Work Phone: [facility] OBGYNStart: 02-20-2025 End: 29-05-7683Hhusfl flowsheetCorey Lalitha DO Work Phone: [facility] [place] [facility]BGYNStart: 02-20-2025 End: 37-25-1395Suqqollp flow sheetCorey Lalitha DO Work Phone: [facility]le OBGYNComment on above:29 weeks gestation of ([facility]); Third trimester ([facility]); Pruritus; Vasovagal episode; size inconsistent with dates ([facility])Start: 02-20-2025 End: 54-26-3578caxcjbmurqYSSUO FAZIONot AvailableStart: 02-06-2025 End: 28-12-9624Xdxsww Jimmy THAO Work Phone: [facility] [place] [facility]BGYNStart: 02-06-2025 End: 92-96-8554Hfzqir Jimmy THAO Work Phone: [facility] [place] [facility]BGYNStart: 02-06-2025 End: 66-36-6494Jlgaooho flow Yi THAO Work Phone: [facility]le OBGYNComment on above:Second trimester ([facility]); 27 weeks gestation of ([facility])Start: 02-06-2025 End: 91-30-1268urfrmjawkeTLP RAMEYNot AvailableStart: 01-28-2025 End: 51-63-8057Enzuwh outpatient new 20 minutesHenry [facility] PA Work Phone: noMS Orr DermatologyComment on above:Melanocytic nevus of left upper extremity (Primary Dx); Melanocytic nevus, unspecified locationStart: 01-28-2025 End: 47-78-4437jkuumezxvrWXCOK NORTHEIMNot AvailableStart: 01-28-2025 End: 83-64-5977Unctkv flowsLee Memorial Hospital PA Work Phone: noms Amy DermatologyStart: 01-28-2025 End: 67-21-7125Rpqmkx [facility] PA Work Phone: noMS Orr DermatologyStart: 01-22-2025 End: 32-53-4179Mkgjnyolx Result EncounterKristina Emeli FIELD SUPERVISOR [employer]ED PRODUCTION Work Phone: noms External Department UnsolicitedStart: 01-22-2025 End: 46-59-2725Xplwwzwus Result EncounterKristina Emeli FIELD SUPERVISOR SEED PRODUCTION Work Phone: noms External Department UnsolicitedStart: 01-15-2025 End: 07-86-0981Hhkpus flowsheetKristina Emeli FIELD SUPERVISOR SEED PRODUCTION Work Phone: [facility] OBGYNStart: 01-15-2025 End: 88-38-7437Rnxzmr flowsheetKristina Emeli FIELD SUPERVISOR SEED PRODUCTION Work Phone: noMS [facility] OBGYNStart: 01-15-2025 End: 74-36-2162Vgykel outpatient visit 15 minutesKristina Emeli FIELD SUPERVISOR SEED PRODUCTION Work Phone: [facility]le OBGYNComment on above:24 weeks gestation of ([facility]); Second trimester ([facility]); Diabetes mellitus screening; PruritusStart: 01-15-2025 End: 31-77-7617fgnorgihjaYOKLYMXL EBERLYNot AvailableStart: 12-17-2024 End: 84-17-8525Chmpcv outpatient visit 15 minutesWalter Sainz NP Work Phone: [facility] OBGYNComment on above:Second trimester ([facility]); 20 weeks gestation of ([facility]); Vasovagal episodeStart: 12-17-2024 End: 00-27-1805vgdjwvevhuQYSRSNWF EBERLYNot AvailableStart: 11-13-2024 End: 31-85-9766Phggeu outpatient visit 15 minutesSunshine THAO Work Phone: [facility]le OBGYNComment on above:Second trimester ([facility]); 15 weeks gestation of ([facility]); Vasovagal episode; Need for maternal serum alpha-protein (MSAFP) screening ([facility]); Screening, , for anatomic survey ([facility])Start: 11-13-2024 End: 79-80-6610ezawlnqgyvEWW RAMEYNot AvailableStart: 11-05-2024 End: 24-13-8964sgvgdmopvkZYK RAMEYNot AvailableStart: 11-05-2024 End: 99-14-1222Nwfkpjly flow Yi THAO Work Phone: [facility]le OBGYNComment on above:Second trimester ([facility]); 14 weeks gestation of ([facility]); Vasovagal symptom; Screen for STD (sexually transmitted disease); Yeast infectionStart: 11-05-2024 End: 55-86-5725Osdfba Jimmy THAO Work Phone: [facility] OBGYNStart: 11-05-2024 End: 73-10-0443Fbrbsu Jimmy THAO Work Phone: [facility] [place] OBGYNStart: 10-16-2024 End: 44-57-9622Maefmb flowsheetCorey Lalitha DO Work Phone: [facility] BCP OBStart: 10-16-2024 End: 83-52-5512Yxscgs flowsheetCorey Lalitha DO Work Phone: [facility]CP OBStart: 10-16-2024 End: 33-78-3322Asjlpkdh flow sheetCorey Lalitha DO Work Phone: [facility] BCP OBComment on above:First trimester ([facility]); 11 weeks gestation of ([facility]); Vasovagal episodeStart: 10-16-2024 End: 51-53-4630aaaoofugszNMKVC FAZIONot AvailableStart: 10-08-2024 End: 10-33-0786Vasjyjapy Result EncounterCorey Lalitha DO Work Phone: [facility] External Department UnsolicitedStart: 10-08-2024 End: 68-08-5780Zysynougl Result EncounterCorey Lalitha DO Work Phone: [facility]OM[facility] External Department UnsolicitedStart: 09-14-2024 End: 91-46-1148Ecqvocyid Result EncounterCorey Lalitha DO Work Phone: NOXZ External Department UnsolicitedStart: 09-14-2024 End: 36-67-0489Dkizxibsc Result EncounterCorey Lalitha DO Work Phone: NOJS External Department UnsolicitedStart: 09-14-2024 End: 24-67-4898lfguvjcpvfOZQ Katya AvailableStart: 09-14-2024 End: 28-85-9515Gqkvdw outpatient visit 5 minutesNoms Bcp Ob Lalitha NurseNOMS BCP OBComment on above:GA: 4j6dTbswb: 08-30-2024 End: 75-12-8280emakpbksalAXF RAMEYNot AvailableStart: 08-28-2024 End: 03-15-3966Rmtnnu Jimmy THAO Work Phone: [facility] BCP OBStart: 08-28-2024 End: 71-96-9741Smprkc Jimmy THAO Work Phone: [facility] BCP OBStart: 08-28-2024 End: 77-58-2317Mqkbqsdct Result EncounterSunshine Caridad THAO Work Phone: noMS External Department UnsolicitedStart: 08-28-2024 End: 73-96-6150Mumrzitk Result EncounterSunshine Caridad THAO Work Phone: [facility] External Department UnsolicitedStart: 08-28-2024 End: 28-08-8862xjwgenaromNGC CARIDADNot AvailableStart: 08-28-2024 End: 77-86-7066Csyqwxc encounter procedureSunshine Caridad THAO Work Phone: [facility] Work Phone: Start: 08-28-2024 End: 38-83-9626Igvvmfft preventive med est patient 18-39 yrsSunshine Caridad THAO Work Phone: noms BCP OBComment on above:Well woman exam with routine gynecological exam; Missed mensesStart: 06-04-2024 End: 01-06-6940xwykoxqhayVYJHEDVSt. Francis Hospitaltart: 06-04-2024 End: 32-52-2058Rzrtxyizuj hospital visit by Radha Ba DO Work Phone: [facility] Non-Invasive CardiologyComment on above:Palpitations; Pre-syncopeStart: 03-12-2024 End: 61-10-2284nxnkozuzedNbfgakk J. PasterFacility:FTMCStart: 03-12-2024 Emergency department patient visitDO Tuan LovellFacility:FTMCStart: 03-12-2024 End: 66-09-0755HhayhgugpsdGkfbtien E. OfungwTuscarawas Hospital Start: 05-26-2022 End: 66-30-7603ploqgkibjcAF MORRO DOTY .Facility:F2Ajlyy: 05-12-2022 End: 80-44-6647hyvxrjvmysHN MORRO DOTY .Facility:N3Vmkud: 03-13-2022 End: 13-67-2863nhspjnfaokFjovgqjt CommunityFacility:[facility]tart: 03-13-2022 End: 67-87-6267pdgbtlqpibTNOCWJZQZ NO [facility] Work Phone: Start: 03-13-2022 End: 56-82-6804Kietoopl ReferredPHYSICIAN NO [facility] Outreach Procedures DateProcedureProcedure DetailPerforming ClinicianStart: 45-62-5465Kkmzu dip stick/tablet rgnt non-auto w/o micrscpCorey Lalitha DO Work Phone: Start: 56-38-7958Ikfcj dip stick/tablet rgnt non-auto w/o micrscpAmy Caridad PA Work Phone: Start: 71-70-9091KFU CBC WITH AUTO DIFFKristina Emeli FIELD SUPERVISOR [employer]ED [employer]ODUCTION Work Phone: Start: 70-49-8797Oiccr dip stick/tablet rgnt non-auto w/o micrscpKristina Emeli FIELD SUPERVISOR SEED PRODUCTION Work Phone: Start: 95-96-4111Gbmqa dip stick/tablet rgnt non-auto w/o micrscpKristina Emeli FIELD SUPERVISOR [employer]ED PRODUCTION Work Phone: Start: 40-69-5084Dicob dip stick/tablet rgnt non-auto w/o micrscpAmy Caridad PA Work Phone: Start: 17-99-8883Daagd dip stick/tablet rgnt non-auto w/o micrscpAmy Caridad PA Work Phone: Start: 47-05-1983Kiozc dip stick/tablet rgnt non-auto w/o micrscpCorey Lalitha DO Work Phone: Start: 92-82-7606TGB CBC WITH AUTO DIFFCorey Lalitha DO Work Phone: Start: 62-85-3751XI OB TRANSVAGINALCorey Lalitha DO Work Phone: Start: 62-20-8727Shhkf test visual color cmprsn methsCemma Weinbergo DO Work Phone: Start: 23-84-9738WHUNICITR VAGINITIS (HTRX)Sunshine THAO Work Phone: Start: 42-91-7289UJL PREG QUANT HCGAmy Caridad THAO Work Phone: Start: 83-03-9167Fmirh test visual color cmprsn methsAmy Caridad THAO Work Phone: None (qualifier value)Kai Thor Plan of Treatment DateCare ActivityDetailAuthorStart: 03-06-2025 End: 06-08-1848Nfweetx encounter pqpzhbufn63/26/2025 9:30 AM EST Routine [facility] [address] [place], [id number] Walter Sainz, FIELD SUPERVISOR SEED PRODUCTION [address] [place] [id number] [facility] OBGYNStart: 03-06-2025 End: 06-88-2085Mwdgmmcjfbas / ancillary services njswxyvewb58/26/2025 9:00 AM EST Ancillary Procedure [facility] [address] [place] [id number] [facility] OBGYNStart: 02-20-2025 End: 54-82-0054JS for pregnancyUS OB follow up transabdominal approach Imaging Routine 29 weeks gestation of ([facility]) size inconsistent with dates ([facility]) Expected: 02/20/2025, Expires: 06/20/2025[facility] Work Phone: comment on above:Expected: 02/20/2025, Expires: 06/20/2025Start: 02-20-2025 End: 66-24-6372Bxdiuei encounter procedureNOMS Krystle OBGYNComment on above: ArrivedStart: 02-06-2025 End: 17-62-9237Yvoiofv encounter procedureNOMS [place] OBGYNComment on above: ArrivedStart: 01-31-2025 End: 94-99-8654Rmvmmzj encounter xlmyatjzm72/23/2025 3:50 PM EDT Office Visit [facility] [address] [place] [phone] Marcos Lucero, PA [address] [place] [phone] [facility]ermatologyStart: 01-28-2025 End: 75-20-5813Cgagrfo encounter /20/2025 3:40 PM EDT Office Visit [facility] [address] [place] [address] Marcos Lucero, [place] [address] [place] [address] ArrivedN[facility]S [facility]ermatologyComment on above:ArrivedStart: 01-15-2025 End: 11-85-9991Mbwc acids, totalBile acids, total Lab Routine Pruritus Expected: 01/15/2025 (Approximate), Expires: 01/15/2026[facility] HealthcareComment on above: Expected: 01/15/2025 (Approximate), Expires: 01/15/2026Start: 01-15-2025 End: 13-82-3536AQX panel - Blood by Automated countCBC Lab Routine Diabetes mellitus screening Expected: 01/15/2025 (Approximate), Expires: 01/15/2026[facility] Healthcare Work Phone: comment on above:Expected: 01/15/2025 (Approximate), Expires: 01/15/2026Start: 01-15-2025 End: 30-74-9299ZCB W Auto Differential panel - BloodCBC and differential Lab Routine Pruritus Expected: 01/15/2025 (Approximate), Expires: 01/15/2026[facility] HealthcareComment on above:Expected: 01/15/2025 (Approximate), Expires: 01/15/2026Start: 01-15-2025 End: 13-52-8320Sfoequm function 2000 panel - Serum or PlasmaHepatic function panel Lab Routine Pruritus Expected: 01/15/2025 (Approximate), Expires: 01/15/2026[facility] HealthcareComment on above:Expected: 01/15/2025 (Approximate), Expires: 01/15/2026Start: 01-15-2025 End: 27-02-9606Nuiuzgphh C virus Ab [Presence] in Serum or Plasma by Immunoassay Hepatitis C antibody Lab Routine Pruritus Expected: 01/15/2025 (Approximate), Expires: 01/15/2026[facility] HealthcareComment on above:Expected: 01/15/2025 (Approximate), Expires: 01/15/2026Start: 01-15-2025 End: 22-83-5996Xqkostaxszk of glucose 1 hour after glucose challenge for glucose tolerance testGlucose tolerance, 1 hour Lab Routine Diabetes mellitus screening Expected: 01/15/2025 (Approximate), Expires: 01/15/2026[facility] HealthcareComment on above:Expected: 01/15/2025 (Approximate), Expires: 01/15/2026Start: 01-15-2025 End: 71-30-8635Bbtzsaygivg [Units/volume] in Serum or PlasmaTSH Lab Routine Pruritus Expected: 01/15/2025 (Approximate), Expires: 01/15/2026[facility] Healthcare Comment on above:Expected: 01/15/2025 (Approximate), Expires: 01/15/2026Start: 01-15-2025 End: 85-15-5061Lczogiq encounter procedureNOMS [place] OBGYNComment on above: ArrivedStart: 12-17-2024 End: 85-19-1939Ibtftmv encounter tmqaqazta57/08/2025 9:20 AM EDT Routine NOMDiogenes BLAKEGYN [address] [place], [id number] Morro Doty DO [address] [place] [address] NOMS Krystle OBGYNStart: 12-17-2024 End: 51-53-1642Ayichgoziwzx / ancillary services kfofrmohmj76/08/2025 8:00 AM EDT Ancillary Procedure [facility] Krystle CAMP [address] [place] [address] [place] [id number] XJUO Krystle OBGYNStart: 11-13-2024 End: 79-87-6491Qghjo fetoprotein, maternalAlpha fetoprotein, maternal Lab Routine Need for maternal serum alpha-protein (MSAFP) screening ([facility]) Expected: 11/13/2024 (Approximate), Expires: 01/13/2025[facility] Work Phone: comment on above:Expected: 11/13/2024 (Approximate), Expires: 01/13/2025Start: 11-13-2024 End: 44-47-0383PO for pregnancyUS OB 14+ weeks anatomy scan Imaging Routine Screening, , for anatomic survey ([facility]) Expected: 11/13/2024 (Approximate), Expires: 02/13/2025[facility] HealthcareComment on above:Expected: 11/13/2024 (Approximate), Expires: 02/13/2025Start: 11-13-2024 End: 07-67-6948Hihlixs encounter procedureNOMS BCP OBStart: 10-16-2024 End: 37-39-4975Rxlvqvt encounter procedureNOMS BCP OBComment on above:Arrived Start: 55-83-8029Ypqpuxorao ScreenDepression ScreenBon [facility] Start: 09-14-2024 End: 21-88-8493LPC/RhABO/Rh Lab Routine Missed menses , unspecified gestational age Expected: 09/14/2024 (Approximate), Expires: 09/14/2025[facility] HealthcareComment on above:Expected: 09/14/2024 (Approximate), Expires: 09/14/2025Start: 09-14-2024 End: 08-83-7273Ebjyo type and Indirect antibody screen panel - BloodType and screen Lab Routine Missed menses , unspecified gestational age Expected: 09/14/2024 (Approximate), Expires: 09/14/2025[facility] Work Phone: comment on above:Expected: 09/14/2024 (Approximate), Expires: 09/14/2025Start: 09-14-2024 End: 59-00-6497Gqwsq of abuse panel - Urine by Screen methodRapid drug screen, urine Lab Routine , unspecified gestational age Encounter for supervision of normal first in first trimester Expected: 09/14/2024 (Approximate), Expires: 09/14/2025[facility] HealthcareComment on above:Expected: 09/14/2024 (Approximate), Expires: 09/14/2025Start: 08-30-2024 End: 48-66-7907cmcldgvftr83/22/2025 2:00 PM EDT Initial N[facility] OB [address] [place] [address] [place] [id number] [phone] BCP OBStart: 08-30-2024 End: 55-35-5506Nskbkjmxnrhf / ancillary services qjxyveiygr06/22/2025 1:30 PM EDT Ancillary Procedure NOM[facility] OB [address] [place] [address] [place] [id number] [phone] BCP OBStart: 08-28-2024 End: 58-75-3599eZY, quantitative, pregnancyhCG, quantitative, Lab Routine Missed menses Expected: 08/28/2024 (Approximate), Expires:08/28/2025[facility] HealthcareComment on above:Expected: 08/28/2024 (Approximate), Expires: 08/28/2025Start: 08-28-2024 End: 08-32-7219AO Pelvis transvaginalUS OB transvaginal Imaging Routine Missed menses Expected: 08/28/2024, Expires: 11/28/2024[facility] HealthcareComment on above: Expected: 08/28/2024, Expires: 11/28/2024Start: 62-99-8598QJBGK-19 Vaccine ( season)COVID-19 Vaccine ( season)[facility] Start: 47-96-3766Tvleipbui vaccinationFlu vaccine (#1)[facility] Start: 50-59-6553Ybjzmsakg for malignant neoplasm of cervixPap smearSentara Obici HospitalStart: 44-58-2216HJiD/Tdap/Td vaccine (1 - Tdap)DTaP/Tdap/Td vaccine (1 - Tdap)[facility]Start: 34-76-9924Zcryrezyt B vaccine (1 of 3 - 19+ 3-dose series)Hepatitis B vaccine (1 of 3 - 19+ 3-dose series)[facility]: 55-70-9506Zlcvqckal C screeningHepatitis C screenSentara Obici HospitalStart: 98-49-4609JTN screeningHIV screenSentara Obici Hospital Start: 00-93-8469FYV vaccine (1 - 3-dose series)HPV vaccine (1 - 3-dose series) [facility]: 74-95-9972Zhqradfxe vaccine (1 of 2 - 13+ 2-dose series)Varicella vaccine (1 of 2 - 13+ 2-dose series)[facility] Bacteria identified in Urine by CultureUrine culture Microbiology Routine Missed menses Ordered: 09/14/2024[facility]:Ordered: 09/14/2024 CBC W Auto Differential panel - BloodCBC and differential Lab Routine Missed menses , unspecified gestational age Ordered: 09/14/2024[facility] Comment on above:Ordered: 09/14/2024HLAMYDIA TRACHOMATIS (GENITO/STI)CHLAMYDIA TRACHOMATIS (GENITO/STI) Lab Routine Screen for STD (sexually transmitted disease) Ordered: 11/05/2024[facility] HospitalComment [facility] above:Ordered: 11/05/2024 Cytology Cervical or vaginal smear or scraping studyPap Smear Pathology and Cytology Routine Well woman exam with routine gynecological exam Ordered: [facility] Work Phone: comment on above:Ordered: 08/28/2024 End: 56-20-5457Ffpllirf cardiac holter monitor (3 days-14 day)[facility] HospitalComment on above:1 Occurrences starting 06/04/2024 until 06/04/2024 Hemoglobin A1c/Hemoglobin.total in BloodHemoglobin A1c Lab Routine Missed menses , unspecified gestational age Ordered: 09/14/2024[facility] Comment on above:Ordered: 09/14/2024Hepatitis B virus surface Ag [Presence] in Serum or Plasma by ImmunoassayHepatitis B surface antigen Lab Routine Missed menses , unspecified gestational age Ordered: 09/14/2024[facility] Comment on above:Ordered: 09/14/2024Hepatitis C virus Ab [Presence] in Serum or Plasma by ImmunoassayHepatitis C antibody Lab Routine Missed menses , unspecified gestational age Ordered: 09/14/2024[facility] HealthcareComment on above: Ordered: 09/14/2024HIV-1/HIV-2 antigen/antibody combination immunoassayHIV-1 and HIV-2 antibodies Lab Routine Missed menses , unspecified gestational age Ordered: 09/14/2024[facility] HealthcareComment on above:Ordered: 09/14/2024 Neisseria gonorrhoeae DNA [Presence] in Unspecified specimen by JACQUELINE with probe detectionNeisseria gonorrhea DNA probe, direct Lab Routine Screen for STD (sexually transmitted disease) Ordered: 11/05/2024[facility] HealthcareComment on above:Ordered: 11/05/2024Reagin Ab [Presence] in Serum by RPRRPR Lab Routine Missed menses , unspecified gestational age Ordered: 09/14/2024[facility] HealthcareComment on above:Ordered: 09/14/2024Rubella antibody, IgGRubella antibody, IgG Lab Routine Missed menses , unspecified gestational age Ordered: 09/14/2024[facility] HealthcareComment on above:Ordered: 09/14/2024 SURESWAB(R) ADVANCED VAGINITIS PLUS, TMASURESWAB(R) ADVANCED VAGINITIS PLUS, TMA Pathology and Cytology Routine Screen for STD (sexually transmitted disease) Yeast infection Ordered: 11/05/2024[facility] Work Phone: comment on above:Ordered: 11/05/2024 Immunizations Immunization DateImmunizationNotesCare VkisezbyXlotdfui83-17-0286iybwbizpa virus vaccine, live, attenuated, for intranasal useKai [facility] Payers DatePayer CategoryPayerPolicy [id number] Health [place] [id number] 2.16.840.1.119166.3.57[id number] 2.16840.1.701245.3.57[id number] 2.16840.1.217801.3.57[id number] 2.16840.1.048152.3.57[id number] 2.840.1.445907.3.57[id number] 2.16840.1.080096.3.57[id number] 2.16840.1.530882.3.57[id number] 2.16840.1.659235.3.57[id number] 2.16840.1.042746.3.57[id number] 2.16840.1.590315.3.57[id number] 2.16840.1.051615.3.57[id number] 2.16840.1.219504.3.57[id number] 2.16840.1.159118.3.57[id number] 2.16.840.1.031127.3.57[id number] 2.16.840.1.758181.3.57[id number] 2.16.840.1.442081.3.57[id number] 2.16.840.1.931059.3.57[id number] 2.16.840.1.559716.3.57[id number] 2.16.840.1.395489.3.579.2.[id number] [facility] [id number] 2.16.840.1.010935.3.579.2.531 Social History DateTypeDetailFacilityStart: 01-01-2017 End: 01-83-5085Dwnekpm smoking status NHISNever smoked tobacco (finding) [facility] Hospitaltart: 42-33-1209Yrv Assigned At [facility] HospitalTobaccMemorial Hospital Comment on above:DeniesTobacco smoking statusNo Smoking Status [facility] Start: 08-18-2020 End: 47-28-2303Gmf Assigned At [facility]tart: 60-29-8192Kkrcjkl use and exposureSmokeless tobacco non-userBon [facility]Start: 22-09-7479Pvmenewnd beverage intakeLifetime non-drinker (finding) [facility]Start: 08-18-2020 End: 44-56-0027Ueubiuq of Social functionHopi Health Care Center [employer] [facility] Medical CenterHow often to you have a drink containing alcohol?NeverBalaji [facility] Centerlester HOTELbeatrajinder Regional Medical CenterStart: 58-40-9789Djd many standard drinks containing alcohol do you have on a typical day?Not askedWellmont Health SystemConelum(I/We) worried whether (my/our) food would run out before (I/we) got money to buy more.Never trueWellmont Health SystemHittahem Regional Medical Center Start: 94-73-6441Fkt assigned at birthNot on fileRiverside Regional Medical CenterCrucell Regional Medical CenterTobacco smoking status NHISTobacco smoking consumption unknownNONC HealthcareStart: 43-64-7640Xcyzks identityIdentifies as female gender (finding)[facility] Start: 89-34-6796Neajbz orientationHeterosexual (finding)[facility] HealthcareStart: 83-13-1384IegfdywnyJKVG Healthcare Functional Status QaiuErroqufvyhErrkkqQrhwuzrv56-42-3951Ikyjkaukar StatusMercy Health [facility]12-02-2024Functional StatusMer[facility] Clinical Notes 03-12-2024 to 02-20-2025 Note Date & GsigEtiwEipbcujz03-02-1963 History of Present illness Narrative* Анна Hare [...] supervision of normal first in first trimester ([facility]) 09/14/2024 Vasovagal episode 10/16/2024 Resolved Ambulatory Problems Diagnosis Date Noted No Resolved Ambulatory Problems Past Medical History: Diagnosis Date Positive urine test ([facility]) HISTORY PAST MEDICAL HISTORY SOCIAL HISTORY Past Medical History: Diagnosis Date Positive urine test ([facility]) Social History Tobacco Use Smoking status: Not [...] nursing note reviewed. Exam conducted with a table operator present. Vitals: Estimated body mass index is 33.27 kg/m as calculated from the following: Height as of 08/24/23: 5' 4 . Weight as of this encounter: 193 lb 12.8 oz. BP: 112/68 Patient's last menstrual period was 06/27/2024. Assessment/Plan ICD-10-CM 1. 29 weeks gestation of ([facility]) Z3A.29 POCT urinalysis dipstick manually resulted US OB follow up transabdominal approach 2. Third trimester ([facility]) Z34.93 POCT urinalysis dipstick manually resulted 3. Pruritus L29.9 4. Vasovagal episode R55 5. size inconsistent with dates ([facility]) O26.849 US OB follow up transabdominal approach [...] of: Morro Doty DO documented in this encounterFulton State HospitalOjvcsdojne11-44-1762 History of Present illness Narrative* KEESHA Resendiz [...] supervision of normal first in first trimester ([facility]) 09/14/2024 Vasovagal episode 10/16/2024 Resolved Ambulatory Problems Diagnosis Date Noted No Resolved Ambulatory Problems Past Medical History: Diagnosis Date Positive urine test ([facility]) HISTORY PAST MEDICAL HISTORY SOCIAL HISTORY Past Medical History: Diagnosis Date Positive urine test ([facility]) Social History Tobacco Use Smoking status: Not [...] ASSESSMENT & PLAN ICD-10-CM 1. Second trimester ([facility]) Z34.92 2. 27 weeks gestation of ([facility]) Z3A.27 POCT urinalysis dipstick manually resulted Return [...] behalf of: KEESHA Resendiz documented in this encounterFulton State HospitalDhebdjbhbg39-26-9691 History of Present illness Narrative* KEESHA Nj [...] for any new/changing lesions documented in this encounterFulton State HospitalLcinnkavqp39-78-5676 History of Present illness Narrative* Walter Sainz, [...] supervision of normal first in first trimester ([facility]) 09/14/2024 Vasovagal episode 10/16/2024 Resolved Ambulatory Problems Diagnosis Date Noted No Resolved Ambulatory Problems Past Medical History: Diagnosis Date Positive urine test ([facility]) HISTORY PAST MEDICAL HISTORY SOCIAL HISTORY Past Medical History: Diagnosis Date Positive urine test ([facility]) Social History Tobacco Use Smoking status: Not [...] nursing note reviewed. Exam conducted with a table operator present. Vitals: Estimated body mass index is 32.17 kg/m as calculated from the following: Height as of 08/24/23: 5' 4 . Weight as of this encounter: 187 lb 6.4 oz. BP: 124/80 Patient's last menstrual period was 06/27/2024. ASSESSMENT & PLAN ICD-10-CM 1. 24 weeks gestation of ([facility]) Z3A.24 POCT urinalysis dipstick manually resulted 2. Second trimester ([facility]) Z34.92 3. Diabetes mellitus screening [...] of: Walter Sainz NP documented in this encounterFulton State HospitalLlhqdhhwwy73-85-0202 History of Present illness Narrative* Mary Fournier [...] supervision of normal first in first trimester ([facility]) 09/14/2024 Vasovagal episode 10/16/2024 Resolved Ambulatory Problems Diagnosis Date Noted No Resolved Ambulatory Problems Past Medical History: Diagnosis Date Positive urine test ([facility]) HISTORY PAST MEDICAL HISTORY SOCIAL HISTORY Past Medical History: Diagnosis Date Positive urine test ([facility]) Social History Tobacco Use Smoking status: Not [...] nursing note reviewed. Exam conducted with a table operator present. Vitals: Estimated body mass index is 31.07 kg/m as calculated from the following: Height as of 08/24/23: 5' 4 . Weight as of this encounter: 181 lb. BP: 118/74 Patient's last menstrual period was 06/27/2024. ASSESSMENT & PLAN ICD-10-CM 1. Second trimester ([facility]) Z34.92 POCT urinalysis dipstick manually resulted 2. 20 weeks gestation of ([facility]) Z3A.20 3. Vasovagal episode R55 Patient presents [...] of: Walter Sainz NP documented in this encounterFulton State HospitalYoosvcuiqq36-69-5681 History of Present illness Narrative* KEESHA Resendiz [...] supervision of normal first in first trimester ([facility]) 09/14/2024 Vasovagal episode 10/16/2024 Resolved Ambulatory Problems Diagnosis Date Noted No Resolved Ambulatory Problems Past Medical History: Diagnosis Date Positive urine test ([facility]) HISTORY PAST MEDICAL HISTORY SOCIAL HISTORY Past Medical History: Diagnosis Date Positive urine test ([facility]) Social History Tobacco Use Smoking status: Not [...] ASSESSMENT & PLAN ICD-10-CM 1. Second trimester ([facility]) Z34.92 POCT urinalysis dipstick manually resulted 2. 15 weeks gestation of ([facility]) Z3A.15 3. Vasovagal episode R55 4. Need for maternal serum alpha-protein (MSAFP) screening ([facility]) Z36.1 Alpha fetoprotein, maternal Alpha fetoprotein, maternal [...] MSAFP/Anatomy US order to have obtained at [facility]. Orders Placed This Encounter Procedures Alpha fetoprotein, maternal POCT urinalysis dipstick manually resulted Follow Up: Patient is to return to office in 4 week for routine OB appointment. Documented by Olena Gould MA on behalf of: KEESHA Resendiz documented in this encounterFulton State HospitalFdakawlxst77-11-1476 History of Present illness Narrative* KEESHA Resendiz [...] supervision of normal first in first trimester ([facility]) 09/14/2024 Vasovagal episode 10/16/2024 Resolved Ambulatory Problems [...] 06/27/2024. ASSESSMENT & PLAN (Z34.92) Second trimester ([facility]) Plan: POCT urinalysis dipstick manually resulted (Z3A.14) 14 weeks gestation of ([facility]) (R55) Vasovagal symptom (Z11.3) Screen for STD [...] behalf of: KEESHA Resendiz documented in this encounterFulton State HospitalGlbfpcgqjz40-19-6693 History of Present illness Narrative* Анна Hare [...] supervision of normal first in first trimester ([facility]) 09/14/2024 Vasovagal episode 10/16/2024 Resolved Ambulatory Problems [...] nursing note reviewed. Exam conducted with a table operator present. Vitals: Estimated body mass index is 29.35 kg/m as calculated from the following: Height as of 08/24/23: 5' 4 . Weight as of this encounter: 171 lb. BP: 112/64 Patient's last menstrual period was 06/27/2024. ASSESSMENT & PLAN ICD-10-CM 1. First trimester ([facility]) Z34.91 POCT urinalysis dipstick manually resulted 2. 11 weeks gestation of ([facility]) Z3A.11 3. Vasovagal episode R55 New OB: [...] or undercooked meat[facility]. Patient has been consulted regarding any further do's and don'tsof . Patient voiced understanding and all questions and concerns were answered. Orders Placed This Encounter Procedures POCT urinalysis dipstick manually resulted Follow Up: Patient is to return in 4 weeks for routine OB appointment. Documented by Анна Hare LPN on behalf of: Morro Doty DO documented in this encounterFulton State HospitalOkrntzdhgh78-14-7705 History of Present illness Narrative* Olena Gould [...] weeks gestation of Nurse Note: Patient desires [place]. Advised pt to make sure to wait until 9 weeks and take labs along w/Ol[place]o to have drawn. The lab will not [...] or undercooked meat, [facility]. Patient has also been advised to not [...] by: Olena Gould MA documented in this encounterFulton State HospitalPnvvrnivbt37-60-8510 History of Present illness Narrative* KEESHA Resendiz - 08/28/2024 10:00 AM EDT Reason for Appointment: Patient ID: Jyoti Torres is a 23 y.o. female who presents for [facility] Visit Patient presents today for Return [...] nursing note reviewed. Exam conducted with a table operator present. Vitals: Estimated body mass index [...] behalf of: KEESHA Resendiz documented in this encounterFulton State HospitalZawehyivxd30-35-5801 Evaluation + Plan note Extracted from:Title:Discharge NoteAuthor:Luis SNELL, Moses GalvezDate:03/13/24 Discharge To, Anticipated II - Home with responsible caregiver Prescriptions No active prescription medications Home No active home medications With When Contact Information Mark RIZVI, IRIS Alexander Within 2 to 4 weeks Additional Instructions: Call for followup appointment Remigio RIZVI, KYLAH Esteves Within 2 to 4 weeks [facility]ullivan [facility] HospitalHomeworthPl[place] [address]- Additional Instructions: Postural Orthostatic Tachycardia Syndrome Orthostatic Hypotension Near-Syncope, Lfha-at-Mjlg Extracted from:Title:Consult Note- NeurologyAuthor:Hayley Nicholas RN ADate: [...] Ordered: Initial Hospital Care/Day Moderate 55 Minutes 26444 2. Postural orthostatic tachycardia syndrome [POTS] (G90.A: [...] hypotension Diagnostic Tests Pending * Cortisol 03/13/24 [facility] 12-03-2024 Hospital Discharge instructions Patient [...] Follow these instructions at home: Medicines Take clty-kcb-wcauzpp and prescription medicines only as told by your health care provider. Let your health care provider know about all prescription or qxqd-tnl-zirorvp medicines you take. These include herbs, vitamins, [...] provider. Document Revised: 10/08/2021 Document Reviewed: 10/08/2021 [employer] Patient Education 2023 [employer] Systemz. 03/13/2024 11:57:29 Orthostatic Hypotension Orthostatic Hypotension Blood [...] Follow these instructions at home: Medicines Take lsfe-biq-hhnvfxq and prescription medicines only as told by [...] provider. Document Revised: 06/11/2021 Document Reviewed: 06/11/2021 [employer] Patient Education 2023 [employer] Systemz. 03/13/2024 11:56:07 Near-Syncope, Zhkp-vp-Gjmd Near-Syncope Near-syncope is when you suddenly feel [...] Follow these instructions at home: Medicines Take ixyq-hcf-pvvzovo and prescription medicines only as told by [...] provider. Document Revised: 08/06/2021 Document Reviewed: 08/06/2021 [employer] Patient Education 2023 Cardiac Systemz. Follow Up Care 03/12/2024 05:45:24 With:Jenna BA Address: [address] [facility] [place] [phone] Business (1) When:03/15/2024 09:45:00 With:Anthony Flood MD, NEU Address: [address] [place] [address]- When:03/28/2024 13:40:00 Comments:Will being Hue Bentley NP at this appointment. With:Benjamin Flores MD, CAR Address: When:2 to 4 weeks Comments:Call for followup appointment [facility] 12-03-2024 NoteDischarge Summary Admission and Discharge Information Admitting Physician - Kai Mcrae MD Consulting Physician - Anthony Flood MD, MD, Jorge [facility] Cardio, XXXX Admitting Diagnoses: Discharge Diagnoses 1. [...] EST, syncope, Consult and Co-manage Consult to [employer] - Ordered -- 03/12/24 13:52:06 EST Physical [...] KYLAH Esteves Within 2 to 4 weeks [employer] Clinic[place] [address]- Additional Instructions: Patient Education Postural Orthostatic Tac (more content not included)...[facility] HospitalComment on above:Result Comment: Electronically Signed By: Moses Smith DO\.br\Date and Time Signed: 03/13/24 12:08 [id number] Note Echocardiology Procedure Exam Date/Time Accession # Ordering Echo Transthoracic 03/13/2024 10:27 EST [id number] Moses Smith DO Complete CPT code [id number] Reason for Exam (Echo Transthoracic Complete) Syncope Report [facility] [address] [place] [address] Adult Echocardiogram Report Name: JYOTI TORRES Study Date: 03/13/2024 09:56 AM BP: 96/61 mmHg Patient Location: [address] [place] [address] Bed(s) [facility] HR: 57 : 2000 Gender: Female Height: [...] Benjamin Flores MD Transcribed by: ROSE Technologist: [facility]12-03-2024 Note Consultation Note Chief Complaint [...] sensation in all 4 extremities Cerebellar exam: Citjch-cf-yrtd reveals no ataxia. Gait is normal Assessment/Plan [...] None. Medications Inpatient ac (more content not included)...[facility] HospitalComment on above: Result Comment: Electronically Signed By: Hayley Nicholas RN\.br\Date and Time Signed: 03/13/24 07:03 EST\.br\Electronically Co-Signed By: Anthony Flood MD\.br\Date and Time Co-Signed: 03/13/2409:18 EST\.br\Electronically Co- Signed By: Hayley Nicholas RN [id number] NoteHistory and Physical Chief Complaint abd pain [...] Lymph Auto: 10.6 % Low (03/12/24 06:09:00) Mclean Auto: 5.7 % (03/12/24 06:09:00) Eos Auto: 0.6 % (03/12/24 06:09:00) Basophil Auto: 0.2 % (03/12/24 06:09:00) Neutro Absolute: 13.5 E9/L High (03/12/24 06:09:00) Lymph Absolute: 1.7 E9/L (03/12/24 06:09:00) Mclean Absolute: 0.9 E9/L (03/12/24 06:09:00) Eos Absolute: [...] WBC: 0-5 (03/12/24 06:09:00) (more content not included)...[facility] HospitalComment on above:Result Comment: Electronically Signed By: Moses Smith DObr\Date and Time Signed: 03/12/24 12:09 ESTEvaluation noteNo assessment information available [facility] Work Phone: Evaluation note* Diagnosis Palpitations Pre-syncope [...] (HHS-HCC) state, incidental 11 weeks gestation of ([facility]) Vasovagal episode Syncope and collapse [facility] Diagnosis Second trimester (HHS-HCC) state, incidental 14 weeks gestation of ([facility]) Vasovagal symptom Screen for STD (sexually transmitted disease) Screening examination for venereal disease Yeast infection [facility] Diagnosis Second trimester (HHS-HCC) state, incidental 15 weeks gestation of ([facility]) Vasovagal episode Syncope and collapse Need for maternal serum alpha-protein (MSAFP) screening ([facility]) Screening, , for anatomic survey ([facility]) Encounter for anatomic survey [facility] Diagnosis Second trimester (HHS-HCC) state, incidental 20 weeks gestation of ([facility]) Vasovagal episode Syncope and collapse [facility]* Diagnosis 24 weeks gestation of (HHS-HCC) Second trimester ([facility]) state, incidental Diabetes mellitus screening Screening for diabetes mellitus Pruritus Unspecified pruritic disorder [facility]* Diagnosis Melanocytic nevus of left upper extremity- Primary Melanocytic nevus, unspecified location [facility]* Diagnosis Second trimester (HHS-HCC) state, incidental 27 weeks gestation of ([facility]) [facility]* Diagnosis 29 weeks gestation of ([facility]) Third trimester ([facility]) state, incidental Pruritus Unspecified pruritic disorder Vasovagal episode Syncope and collapse size inconsistent with dates ([facility]) [facility] No data available for this section [facility] Progress note No data available for this section [facility] Chief Complaint and Reason for [...] Extended cardiac holter monitor (3 days-14 day) WY EXTERNAL ECG REC>48HR<7D REVIEW & INTERPRETATION W[place] EXTERNAL ECG REC>48HR<7D RECORDING W[place] EXTERNAL ECG REC>7D<15D RECORDING [place] EXTERNAL ECG REC>7D<15D REVIEW & INTERPRETATION Jenna Ba DO [address] [place] [address] [address] Referral IDStatusReasonStart DateExpiration DateVisits RequestedVisits [id number]/24/20255/ Additional Source Comments Care Teams (unrecognized sec tion and content) Team Status: Inactive Member Role Status Dates Outreach Community Attending Provider Active PHYSICIAN NO FAMILYPrimary Care ProviderActive Team Status: Active Member Role Status Dates PHYSICIAN NO FAMILY Primary Care Provider Active Team MemberRelationshipSpecialtyStart DateEnd Date Jenna Ba DO [address] [place] [address] PCP - GeneralFamily Medicine09/29/23Team MemberRelationshipSpecialtyStart DateEnd Date Jenna Ba MD [address] [facility] [place] [address] PCP - GeneralGeneral Fsxfxaln05/10/24Team MemberRelationshipSpecialtyStart Date End Date Jenna Ba MD [address] [place] [address] PCP - GeneralGeneral Nhxelplb87/10/24Team MemberRelationshipSpecialtyStart Date End Date Jenna Ba MD [address] [place] [facility] [place] [address] PCP - GeneralGeneral Joxynwqt17/10/24Team MemberRelationshipSpecialtyStart Date End Date Jenna Ba MD [address] [place] [facility] [place] [address] PCP - GeneralGeneral Rkpdjjqc13/10/24Team MemberRelationshipSpecialtyStart Date End Date Jenna Ba MD [address] [place] [facility] [place] [address] PCP - GeneralGeneral Cmioollx00/10/24am MemberRelationshipSpecialtyStart Date End Date Jenna Ba MD [address] [place] [facility] [place] [address] PCP - GeneralGeneral Jcmgcbdg11/10/24am MemberRelationshipSpecialtyStart Date End Date Jenna Ba MD [address] [place] [facility] [place] [address] PCP - GeneralGeneral Byfewzii37/10/24Team MemberRelationshipSpecialtyStart Date End Date Jenna Ba MD [address] [place] [facility] [place] [address] PCP - GeneralGeneral Olntalcg64/10/24Team MemberRelationshipSpecialtyStart Date End Date Jenna Ba MD [address] [place] [address] PCP - GeneralGeneral Szzdmwbr77/10/24Te MemberRelationshipSpecialtyStart Date End Date Jenna Ba MD [address] [place] [address] PCP - GeneralGeneral Npcfovni10/10/24Te MemberRelationshipSpecialtyStart Date End Date Jenna Ba MD [address] [place] [address] PCP - GeneralGeneral Teyqinpo79/10/24Te MemberRelationshipSpecialtyStart Date End Date Jenna Ba MD [address] [place] [address] PCP - GeneralGeneral Aytphpbo87/10/24Te MemberRelationshipSpecialtyStart Date End Date Jenna Ba MD [address] [place] [address] [facility] - [facility] Centerral Vtutsqcy99/10/24 Goals (unrecognized section and content) Goals may be documented in a n alternate section No data available for this section INFORMATION SOURCE (unrecogn ized section and content) DATE CREATED AUTHOR 03/14/2022 [facility] DATE CREATED AUTHOR AUTHOR'S ORGANIZ ATION 07/23/2022 [facility] DATE CREATED AUTHOR AUTHOR'S ORGANIZ ATION 03/12/2024 [facility] DATE CREATED AUTHOR AUTHOR'S ORGANIZ ATION 03/14/2024 [facility] DATE CREATED AUTHOR AUTHOR'S ORGANIZ ATION 03/16/2024 [facility] DATE CREATED AUTHOR AUTHOR'S ORGANIZ ATION 06/08/2024 [facility] DATE CREATED AUTHOR AUTHOR'S ORGANIZ ATION 02/21/2025 [facility] EPIC Reason for Visit (unrecogniz ed section and content) SpecialtyDiagnoses / ProceduresReferred By ContactReferred To ContactCardiology Diagnoses Palpitations Pre-syncope Procedures Extended cardiac holter monitor (3 days-14 day) WY EXTERNAL ECG REC>48HR<7D REVIEW & INTERPRETATION WY EXTERNAL ECG REC>48HR<7D RECORDING WY EXTERNAL ECG REC>7D<15D RECORDING W[place] EXTERNAL ECG REC>7D<15D REVIEW & INTERPRETATION Jenna Ba DO [address] [place] [address] [facility] [address] [place] [address] Referral IDStatusReasonStart DateExpiration DateVisits RequestedVisits [id number]/24/20255/25/590623MjpejoAcbjegjlYzif Women VisitReason CommentsAmenorrheaReasonCommentsRoutine VisitReasonCommentsSkin Check FOR RECORDS [...] BE BASED ON THE PRIMARY CLINICAL RECORDS. [employer] [facility] provides no warranty or guarantee of the accuracy or completeness of information in this document.
[2025-04-10 15:36] VITALS: BP 126/78; PULSE 78
== END 2025-04-10 16:48 | disposition home or self-care (01) ==
LOC: US 15:01 → FBC 15:03
PROVIDERS: PCP Family Medicine; Visit Provider Physician Assistant
DX: O36.63X0 Maternal care for excessive fetal growth, third trimester, not applicable or unspecified (principal); Z3A.36 36 weeks gestation of pregnancy
CPT/HCPCS: 76818